=== PATIENT | female | born 1935 | race Caucasian/White ===

== ENCOUNTER → 2017-02-07 | Outpatient (CLI) | payer MEDICARE, OTHER ==
[~2017-02-07] MED LIST: AMLO5TAB2 GT; AMLO5TAB2 PO; ASPI-875 PO; CALCIUM 1000 MG PO; CEPH500C PO; CHOL200018 PO; DIPH1TAB25 PO; HCT25T PO; HYDR25TA4 PO; LOSA50TA6 PO; METR500T17 PO; OMEG1CAP51 PO; ONDA8TAB13 PO; OXYC-12 PO
== END ==
LOC: LAB 15:46
DX: R19.7 Diarrhea, unspecified (principal)
CPT/HCPCS: 87324; 87328; 87329; 87449

== ENCOUNTER → 2017-06-29 | Outpatient (CLI) | payer MEDICARE, OTHER | LOC: CARD 13:32 | PROVIDERS: ATTEND Nurse Practitioner Family | DX: I10 Essential (primary) hypertension (principal) | CPT/HCPCS: 93306 ==

== ENCOUNTER 2017-08-12 14:55 | Outpatient (RCR) | payer MEDICARE, OTHER ==
[2017-08-13 08:08] LABS: ALANINE AMINOTRANSFERASE 15 U/L (0-55); ALBUMIN 4.1 GM/DL (3.2-4.5); ALKALINE PHOSPHATASE 62 U/L (40-136); BILIRUBIN,TOTAL 1.2 MG/DL (0.1-1.0); BUN/CREATININE RATIO 15; CALCIUM 9.6 MG/DL (8.5-10.1); CARBON DIOXIDE 30 MMOL/L (21-32); CHLORIDE 98 MMOL/L (98-107); CHOLESTEROL 187 MG/DL (< 200); CREATININE SERUM 0.88 MG/DL (0.60-1.30); GFR ESTIMATED > 60; GLUCOSE 108 MG/DL (70-105); HDL CHOLESTEROL 69 MG/DL (40-60); POTASSIUM 3.4 MMOL/L (3.6-5.0); SODIUM 138 MMOL/L (135-145); TRIGLYCERIDES 46 MG/DL (<150); VLDL CHOLESTEROL 9 MG/DL (5-40)
== END 2017-11-10 | disposition home or self-care (01) ==
LOC: LAB 14:55
PROVIDERS: ATTEND Physician Assistant
DX: I65.23 Occlusion and stenosis of bilateral carotid arteries (principal); I35.0 Nonrheumatic aortic (valve) stenosis; I11.0 Hypertensive heart disease with heart failure; I50.30 Unspecified diastolic (congestive) heart failure
CPT/HCPCS: 36415; 80053; 80061

== ENCOUNTER 2017-11-19 12:06 | Inpatient (IN) | payer MEDICARE, OTHER ==
[~2017-11-19] VITALS: Ht 157.5 cm; Wt 68.0 kg
--- OUTSIDE RECORDS SUMMARY | 2017-11-19 12:12 | XMS REPORT | Clinical Summary ---
Author Author [facility] Organization [facility] Address Unknown Phone Unavailable Care Team Providers Care Artist Mannequin Coloring Name Role Phone PCP Unavailable Source Comments Some departments are not documenting in the electronic medical record. If you do not see the information that you expected, contact Release of Information in the Health Information Management department at [phone] for further assistance in locating additional records.[facility] Allergies No Known Allergies Current Medications Prescription Sig. Disp. Refills Start End Date Status Date vitamins, multiple cap Take 1 Cap by mouth Active daily. Fish Oil-[place]-3 Fatty Take 1 Cap by mouth Active Acids (FISH OIL) daily. 360-1,200 mg cap aspirin EC 81 mg tablet Take 81 mg by mouth Active daily. hydrochlorothiazide Take 12.5 mg by mouth Active (HYDRODIURIL) 25 mg daily. tablet amLODIPine (NORVASC) 5 mg Take 5 mg by mouth twice Active tablet daily. LACTOBACILLUS COMBO NO.6 Take 3 Caps by mouth Active (PROBIOTIC COMPLEX PO) daily. losartan (COZAAR) 50 mg Take 50 mg by mouth at Active tablet bedtime daily. Cholecalciferol (Vitamin Take 1 Cap by mouth Active D3) (VITAMIN D-3) 2,000 daily. unit cap ondansetron (ZOFRAN) 4 mg Take 4 mg by mouth every Active tablet 8 hours as needed. metoclopramide HCl Take 5 mg by mouth twice Active (REGLAN) 5 mg tablet daily before meals. Cyanocobalamin (VITAMIN Place 1 Tab under tongue Active B-12) 2,500 mcg subl daily. potassium chloride SR Take 10 mEq by mouth Active (K-DUR) 10 mEq tablet daily. CALCIUM PO Take 1 Tab by mouth Active daily. Takes liquid calcium 1000mg with magnesium 400 mg VIT A/VIT C/VIT Take 1 Tab by mouth Active E/ZINC/COPPER daily. (PRESERVISION AREDS PO) Active Problems Problem Noted Date Renal cyst 01/03/2014 Urinary tract bacterial infections 01/03/2014 Nocturia 01/03/2014 Family History Medical History Relation Name Comments Arthritis Father GI Problem Father Hearing Loss Father Heart Attack Father Hyperlipidemia Father Hypertension Father Depression Mother Diabetes Mother Hypertension Mother Parkinson's Mother Cataract Sister Depression Sister Emphysema Sister Hypertension Sister Alcohol abuse Son Depression Son Hyperlipidemia Son Relation Name Status Comments Daughter Alive Father Mother Sister Son Alive Social History Tobacco Use Types Packs/Day Years Used Date Former Smoker Quit: 01/02/2000 Alcohol Use Drinks/Week oz/Week Comments No Sex Assigned at Date Recorded Not on file Last Filed Vital Signs Vital Sign Reading Time Taken Blood Pressure 134/63 01/25/2014 11:45 AM CDT Pulse 79 01/25/2014 11:15 AM CDT Temperature 36.7 C (98.1 F) 01/25/2014 8:25 AM CDT Respiratory Rate 20 01/03/2014 1:21 PM [employer] Oxygen Saturation 95% 01/25/2014 11:15 AM CDT Inhaled Oxygen - - Concentration Weight 64 kg (141 lb) 01/03/2014 1:21 PM [employer] Height 160 cm (5' 3") 01/03/2014 1:21 PM [employer]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
--- OUTSIDE RECORDS SUMMARY | 2017-11-19 12:12 | XMS REPORT | Continuity of Care Document ---
Author Author [facility] Organization [facility] Address Unknown Phone Unavailable Allergies Active Description Code Type Severity Reaction Onset Reported/Identified Relationship to Patient Clinical Status Yes No Known Drug Allergies [id number] Drug Allergy Unknown N/A 12/31/2010 Medications There is no data. Problems Date Dx Coded Attending Type Code Diagnosis Diagnosed By 09/13/2014 BRYCE DAMICO, MOMO A Ot 719.45 11/19/2014 BRYCE DAMICO, MOMO A Ot V76.12 11/19/2014 BRYCE DAMICO, MOMO A Ot 401.9 11/19/2014 BRYCE DAMICO, MOMO A Ot V58.69 11/19/2014 BRYCE DAMICO, MOMO A Ot V58.83 11/19/2014 BRYCE DAMICO, MOMO A Ot 719.45 12/20/2014 BRYCE DAMICO, MOMO A Ot 785.2 05/24/2015 BRYCE DAMICO, MOMO A Ot V76.12 05/24/2015 BRYCE DAMICO, MOMO A Ot 401.9 05/24/2015 BRYCE DAMICO, MOMO A Ot V58.69 05/24/2015 BRYCE DAMICO, MOMO A Ot V58.83 05/24/2015 BRYCE DAMICO, MOMO A Ot 719.45 05/24/2015 BRYCE DAMICO, MOMO A Ot 785.2 06/18/2015 SHAUN TINOCO [employer] Ot 724.2 06/18/2015 SHAUN TINOCO [employer] Ot 782.0 06/18/2015 SHAUN TINOCO [employer] Ot 787.60 06/25/2015 SHAUN TINOCO [employer] Ot 724.02 06/25/2015 SHAUN TINOCO [employer] Ot 782.0 06/25/2015 SHAUN TINOCO [employer] Ot 787.60 07/11/2015 SHAUN TINOCO [employer] Ot 724.2 07/11/2015 SHAUN TINOCOP Ot 782.0 07/11/2015 SHAUN TINOCO [employer] Ot 787.60 07/23/2015 SHAUN TINOCO [employer] Ot 724.02 07/23/2015 SHAUN TINOCO [employer] Ot 782.0 07/23/2015 SHAUN TINOCO [employer] Ot 787.60 10/11/2015 TINOCOSHAUN [employer] Ot 724.02 10/11/2015 SHAUN TINOCO [employer] Ot 782.0 10/11/2015 SHAUN TINOCO [employer] Ot 787.60 11/05/2015 ALEJANDRINASHAUN [employer] Ot F17.210 11/05/2015 ALEJANDRINASHAUN [employer] Ot R05 11/12/2015 GRACE ROCHA VALVE GRINDER Ot R05 11/12/2015 GRACE ROCHA VALVE GRINDER Ot R06.02 03/04/2016 CLIVE DAMICO FACC, CAN FACP CCDS Ot G20 PARKINSON'S DISEASE 03/04/2016 CLIVE DAMICO FACC, CAN FACP CCDS Ot I10 ESSENTIAL (PRIMARY) HYPERTENSION 03/04/2016 CLIVE DAMICO FACC, ALI FACP CCDS Ot I35.0 NONRHEUMATIC AORTIC (VALVE) STENOSIS 03/04/2016 CLIVE DAMICO FACC, ALI FACP CCDS Ot R06.02 SHORTNESS OF BREATH 03/04/2016 CLIVE DAMICO FACC, CAN FACP CCDS Ot R09.89 OTH SYMPTOMS AND SIGNS INVOLVING THE CIR 03/24/2016 CLIVE DAMICO FACC, CAN FACP CCDS Ot G20 PARKINSON'S DISEASE 03/24/2016 CLIVE DAMICO FACC, ALI FACP CCDS Ot I10 ESSENTIAL (PRIMARY) HYPERTENSION 03/24/2016 CLIVE DAMICO FACC, ALI FACP CCDS Ot I35.0 NONRHEUMATIC AORTIC (VALVE) STENOSIS 03/24/2016 CLIVE DAMICO FACC, ALI FACP CCDS Ot R06.02 SHORTNESS OF BREATH 03/24/2016 CLIVE DAMICO FACC, ALI FACP CCDS Ot R09.89 OTH SYMPTOMS AND SIGNS INVOLVING THE CIR 02/11/2017 SHAUN TINOCO [employer] Ot 724.02 SPINAL STENOSIS, LUMBAR REG, W/OUT NEURO 02/11/2017 TINOCO, SHAUN M [employer] Ot 782.0 SKIN SENSATION DISTURB 02/11/2017 SHAUN TINOCO [employer] Ot 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 02/11/2017 SHAUN TINOCO [employer] Ot F17.210 NICOTINE DEPENDENCE, CIGARETTES, UNCOMPL 02/11/2017 SHAUN TINOCO [employer] Ot R05 COUGH 02/11/2017 GRACE ROCHA VALVE GRINDER Ot R05 COUGH 02/11/2017 GRACE ROCHA VALVE GRINDER Ot R06.02 SHORTNESS OF BREATH 02/11/2017 CLIVE DAMICO FAC, ALI FACP CCDS Ot G20 PARKINSON'S DISEASE 02/11/2017 CLIVE DAMICO FAC, ALI FACP CCDS Ot I10 ESSENTIAL (PRIMARY) HYPERTENSION 02/11/2017 CLIVE DAMICO [facility], ALI FACP CCDS Ot I35.0 NONRHEUMATIC AORTIC (VALVE) STENOSIS 02/11/2017 CLIVE DAMICO [facility], ALI FACP CCDS Ot R06.02 SHORTNESS OF BREATH 02/11/2017 CLIVE DAMICO [facility], ALI FACP CCDS Ot R09.89 OTH SYMPTOMS AND SIGNS INVOLVING THE CIR 02/11/2017 OTHER, UNLISTED Ot R19.7 DIARRHEA, UNSPECIFIED 02/11/2017 OTHER, UNLISTED Ot R19.7 DIARRHEA, UNSPECIFIED 03/10/2017 OTHER, UNLISTED Ot R19.7 DIARRHEA, UNSPECIFIED 06/22/2017 MOMO WU MD Ot V76.12 OTH SCREEN MAMMO-MALIGN NEOPLASM OF NATASHA 06/22/2017 MOMO WU MD Ot 401.9 HYPERTENSION NOS 06/22/2017 MOMO WU MD Ot V58.69 OTH MED,LT,CURRENT USE 06/22/2017 MOMO WU MD Ot V58.83 ENCOUNTER FOR THERAPEUTIC DRUG MONITORIN 06/22/2017 MOMO WU MD Ot 719.45 JOINT PAIN-PELVIS 06/22/2017 MOMO WU MD Ot 785.2 CARDIAC MURMURS NEC 06/22/2017 SHAUN TINOCO [employer] Ot 724.2 LUMBAGO 06/22/2017 SHAUN TINOCO [employer] Ot 782.0 SKIN SENSATION DISTURB 06/22/2017 SHAUN TINOCO [employer] Ot 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 06/22/2017 ALEJANDRINA SHAUN Raj [employer] Ot 724.02 SPINAL STENOSIS, LUMBAR REG, W/OUT NEURO 06/22/2017 ALEJANDRINA SHAUN M [employer] Ot 782.0 SKIN SENSATION DISTURB 06/22/2017 ALEJANDRINA SHAUN Anthony [employer] Ot 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 06/22/2017 ALEJANDRINA SHAUN Raj [employer] Ot F17.210 NICOTINE DEPENDENCE, CIGARETTES, UNCOMPL 06/22/2017 SHAUN TINOCO [employer] Ot R05 COUGH 06/22/2017 GRACE ROCHA VALVE GRINDER Ot R05 COUGH 06/22/2017 GRACE ROCHA VALVE GRINDER Ot R06.02 SHORTNESS OF BREATH 06/22/2017 CLIVE DAMICO FACC, ALI FACP CCDS Ot G20 PARKINSON'S DISEASE 06/22/2017 CLIVE DAMICO FACC, ALI FACP CCDS Ot I10 ESSENTIAL (PRIMARY) HYPERTENSION 06/22/2017 CLIVE DAMICO FACC, ALI FACP CCDS Ot I35.0 NONRHEUMATIC AORTIC (VALVE) STENOSIS 06/22/2017 CLIVE DAMICO FACC, ALI FACP CCDS Ot R06.02 SHORTNESS OF BREATH 06/22/2017 CLIVE DAMICO FACC, ALI FACP CCDS Ot R09.89 OTH SYMPTOMS AND SIGNS INVOLVING THE CIR 06/22/2017 OTHER, UNLISTED Ot R19.7 DIARRHEA, UNSPECIFIED 07/23/2017 ALEJANDRINA SHAUN M [employer] Ot I10 ESSENTIAL (PRIMARY) HYPERTENSION 08/12/2017 CJ BENTON Ot 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 08/13/2017 CJ BENTON Ot 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 09/24/2017 CJ BENTON Ot I11.0 HYPERTENSIVE HEART DISEASE WITH HEART FA 09/24/2017 CJ BENTON Ot I35.0 NONRHEUMATIC AORTIC (VALVE) STENOSIS 09/24/2017 CJ BENTON Ot I50.30 UNSPECIFIED DIASTOLIC (CONGESTIVE) HEART 09/24/2017 CJ BENTON Ot 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 Results Test Result Range [id number] - 02/07/17 15:00 RESULTS NEGATIVE FOR ANTIGEN AND TOXIN A/B NRG [id number] - 02/07/17 15:00 [id number] FOOTNOTE NRG Encounters ACCT No. Visit Date/Time Discharge Status Pt. Type Provider Facility Loc./Unit Complaint [id number] 11/11/2017 00:28:00 11/11/2017 23:59:59 CLS Preadmit CJ BENTON [facility] LAB I35.0 I65.23 I50.30 I10 [id number] 08/12/2017 14:55:00 11/10/2017 00:01:00 DIS Outpatient CJ BENTON [facility] LAB I35.0 I65.23 I50.30 I10 [id number] 06/29/2017 13:32:00 06/29/2017 23:59:59 CLS Outpatient SHAUN TINOCO [facility] CARD HTN [id number] 02/07/2017 15:46:00 02/07/2017 23:59:59 CLS Outpatient OTHER, UNLISTED [facility] LAB DIARRHEA UNSPECIFED TYPE [id number] 03/03/2016 08:40:00 03/03/2016 23:59:59 CLS Outpatient CLIVE DAMICO FACCAN Clarke FACP CCDS [facility] CARD SOA,AORTIA STENOSIS [id number] 10/23/2015 15:10:00 10/23/2015 23:59:59 CLS Outpatient GRACE ROCHA APRN [facility] RT SHORTNESS OF BREATH, COUGH [id number] 10/11/2015 12:42:00 10/11/2015 23:59:59 CLS Outpatient SHAUN TINOCO [employer] [facility] RAD COUGH,HX TOBACCO USE [id number] 05/28/2015 10:47:00 05/28/2015 23:59:59 CLS Outpatient ALEJANDRINA SHAUN Raj [employer] [facility] RAD LBP,NUMBESS IN LEGS AND FECAL INCONTINTICE [id number] 05/24/2015 12:16:00 05/24/2015 23:59:59 CLS Outpatient SHAUN TINOCO [employer] [facility] RAD LBP,NUMBESS IN LEGS AND PAIN [id number] 11/19/2014 10:49:00 11/19/2014 23:59:59 CLS Outpatient MOMO WU MD [facility] CARD HEART MUMUR [id number] 08/22/2014 12:36:00 08/22/2014 23:59:59 CLS Outpatient MOMO WU MD [facility] RAD R HIP PAIN [id number] 12/20/2013 08:54:00 03/19/2014 00:01:00 DIS Outpatient [id number] 02/22/2014 09:00:00 02/22/2014 23:59:59 CLS Outpatient MOMO WU MD [facility] RAD SCREENING [id number] 02/21/2014 11:03:00 02/21/2014 23:59:59 CLS Outpatient MOMO WU MD [facility] LAB HTN,SNF MED USE [id number] 10/20/2013 07:30:00 01/16/2014 00:01:00 DIS Outpatient [id number] 12/17/2013 15:59:00 12/17/2013 20:13:00 DIS Emergency [id number] 10/31/2013 11:12:00 11/08/2013 11:07:00 DIS Inpatient [id number] 06/19/2013 08:54:00 06/19/2013 11:40:00 DIS Outpatient [id number] 06/14/2013 07:24:00 06/14/2013 23:59:59 CLS Outpatient [id number] 03/07/2013 17:46:00 03/07/2013 23:59:59 CLS Outpatient [id number] 02/27/2013 12:19:00 02/27/2013 23:59:59 CLS Outpatient
--- NOTE | 2017-11-19 12:21 | ED Fall/Injury ---
General Stated Complaint: FALL Source: patient, family (son), EMS Exam Limitations: no limitations History of Present Illness Date Seen by Provider: Nov 19, 2017 Time Seen by Provider: 12:10 Initial Comments Patient presents to ER by EMS with chief complaint of just prior to arrival she was walking down 3 or 4 steps outside of her friend's house and grabbed on the banister but the railing piece she grabbed came loose and she tumbled down the steps. She denies loss of consciousness or striking her head. She's not having any pain in her head neck shoulders or upper extremities. She is concerned mostly because she has a history of multiple lumbar spinal fusions and she feels not so much pain in her left lower extremity but numbness and feels like she can't move it. She was more comfortable laying on her right side according to EMS. She denied an IV or pain medicine per EMS. She has no history of hip fracture. She has also had a gallbladder and carotid endarterectomy surgery in the past. She is not on blood thinners. She claims she feels very dry and wants something to drink. She drank 2 large glasses of water before leaving her friend 's house that she is also dehydrated. She denies urinary frequency, dysuria, discharge. She has no nausea, vomiting, chest pain, shortness of breath. She denies diabetes or diuretics use. Allergies and Home Medications Allergies Coded Allergies: No Known Drug Allergies (Unverified , 12/31/10) Home Medications Amlodipine Besylate 5 Mg Tablet, 5 MG PO DAILY, (Reported) Aspirin 81 Mg Tablet.dr, 81 MG PO DAILY, (Reported) Cholecalciferol (Vitamin D3) 2,000 Unit Capsule, 2,000 UNIT PO 1200, (Reported) Elderberry Fruit and Flower 1 Each Capsule, 1 CAP PO BID, (Reported) Hydrochlorothiazide 25 Mg Tablet, 25 MG PO DAILY, (Reported) L.acidoph & Paracasei,B.lactis 1 Each Capsule, 1 CAP PO BID, (Reported) Lutein 20 Mg Tablet, 20 MG PO BID, (Reported) Metoprolol Succinate 25 Mg Tab.er.24h, 25 MG PO DAILY, (Reported) Multivitamin 1 Each Tablet, 0.5 TAB PO BID, (Reported) Huguenot 3 Polyunsat Fatty Acids 1,000 Mg Cap, 1,000 MG PO TID, (Reported) [Proactazyme] , 1 CAP PO TID, (Reported) [Slippery Elm] , 1 CAP PO TID, (Reported) Constitutional: No chills, No diaphoresis Eyes: Denies Blindness, Denies Drainage Ears, Nose, Mouth, Throat: denies ear pain, denies ear discharge Respiratory: No cough, No dyspnea on exertion Cardiovascular: No chest pain, No edema, No syncope Gastrointestinal: No abdominal pain, No constipation, No diarrhea, No nausea, No vomiting Genitourinary: No discharge, No dysuria Skin: No pruritus, No rash Past Duuobfo-Huszsg-Whewle Hx Patient Social History Smoking Status: Never a Smoker 2nd Hand Smoke Exposure: No Immunizations Up To Date Date of Pneumonia Vaccine: Oct 01, 2003 Date of Influenza Vaccine: Jul 04, 2013 Reproductive System Hx Reproductive Disorders: No Musculoskeletal Musculoskeletal Disorders: Arthritis Blood Transfusions Adverse Reaction to a Blood Tr: No Family Medical History Significant Family History: Heart Disease, Diabetes, Hypertension, Psychiatric Problems Family Medial History: Cataract 09 SISTER Chest pain 03 FATHER Family history: Arthritis 03 FATHER Family history: Cardiovascular disease 03 FATHER Family history: Diabetes mellitus 03 MOTHER Family history: Gastrointestinal disease 03 FATHER Family history: Hypertension 03 MOTHER Hearing loss 03 FATHER Heart disease 03 FATHER Myocardial infarction 03 FATHER Parkinson's disease 03 MOTHER Psychotic disorder 09 SISTER No Family History of: Abdominal aortic aneurysm Crittenden's disease Alcoholism Aphasia Cancer Cancer of colon Congenital heart disease Congestive heart failure Cystic fibrosis Dementia Dysphagia Family history: Allergy Family history: Alzheimer's disease Family history: Asthma Family history: Breast disease Family history: Coronary thrombosis Family history: Glaucoma Family history: Osteoporosis Family history: Thyroid disorder Headache Hereditary disease History of - anemia History of - disorder History of - respiratory disease History of drug abuse Human immunodeficiency virus (HIV) seropositivity Hypercholesterolemia Infertile Kidney disease Malignant neoplasm of lung Prostate cancer Seizure disorder Stroke Tuberculosis Visual impairment Physical Exam Vital Signs Vital Sign - Last 12Hours 11/19/17 12:06 Temp 98.0 Pulse 94 Resp 18 B/P (MAP) 165/77 (106) Pulse Ox 94 O2 Delivery Room Air Capillary Refill : General Appearance: WD/WN, mild distress HEENT: PERRL/EOMI, TMs normal, pharynx normal, other (negative for raccoon eyes or [place] sign) Neck: non-tender, full range of motion, supple, normal inspection Cardiovascular: normal peripheral pulses, regular rate, rhythm, no edema Respiratory: chest non-tender, lungs clear, normal breath sounds, no respiratory distress, no accessory muscle use Peripheral Pulses: 2+ Dorsalis Pedis (R), 2+ Left Dors-Pedis (L), 2+ Radial Pulses (R), 2+ Radial Pulses (L) Gastrointestinal: normal bowel sounds, non tender, soft Extremities: non-tender, normal capillary refill, other (left leg is numb, outwardly rotated and mildly shortened. Painful to motion) Neurologic/Psychiatric: alert, normal mood/affect, oriented x 3 Skin: normal color, warm/dry Progress/Results/Core Measures Results/Orders Lab Results Laboratory Tests Test 11/19/17 12:31 Range/Units White Blood Count 15.7 H 4.3-11.0 10^3/uL Red Blood Count 5.14 4.35-5.85 10^6/uL Hemoglobin 13.8 11.5-16.0 G/DL Hematocrit 41 35-52 % Mean Corpuscular Volume 79 L 80-99 FL Mean Corpuscular Hemoglobin 27 25-34 PG Mean Corpuscular Hemoglobin Concent 34 32-36 G/DL Red Cell Distribution Width 15.2 H 10.0-14.5 % Platelet Count 239 130-400 10^3/uL Mean Platelet Volume 9.3 7.4-10.4 FL Neutrophils (%) (Auto) 79 H 42-75 % Lymphocytes (%) (Auto) 13 12-44 % Monocytes (%) (Auto) 6 0-12 % Eosinophils (%) (Auto) 2 0-10 % Basophils (%) (Auto) 0 0-10 % Neutrophils # (Auto) 12.4 H 1.8-7.8 X 10^3 Lymphocytes # (Auto) 2.0 1.0-4.0 X 10^3 Monocytes # (Auto) 0.9 0.0-1.0 X 10^3 Eosinophils # (Auto) 0.4 H 0.0-0.3 10^3/uL Basophils # (Auto) 0.1 0.0-0.1 10^3/uL Neutrophils % (Manual) 81 % Lymphocytes % (Manual) 13 % Monocytes % (Manual) 3 % Eosinophils % (Manual) 3 % Toxic Granulation 1+ Blood Morphology Comment NORMAL Sodium Level 136 135-145 MMOL/L Potassium Level 3.1 L 3.6-5.0 MMOL/L Chloride Level 93 L 98-107 MMOL/L Carbon Dioxide Level 29 21-32 MMOL/L Anion Gap 14 5-14 MMOL/L Blood Urea Nitrogen 15 7-18 MG/DL Creatinine 0.83 0.60-1.30 MG/DL Estimat Glomerular Filtration Rate > 60 BUN/Creatinine Ratio 18 Glucose Level 95 70-105 MG/DL Calcium Level 9.7 8.5-10.1 MG/DL Magnesium Level 1.7 L 1.8-2.4 MG/DL Total Bilirubin 0.9 0.1-1.0 MG/DL Aspartate Amino Transf (AST/SGOT) 20 5-34 U/L Alanine Aminotransferase (ALT/SGPT) 18 0-55 U/L Alkaline Phosphatase 64 40-136 U/L Total Protein 7.2 6.4-8.2 GM/DL Albumin 4.2 3.2-4.5 GM/DL My Orders Orders - ALESIA ARIAS Cbc With Automated Diff (11/19/17 12:15) Comprehensive Metabolic Panel (11/19/17 12:15) Magnesium (11/19/17 12:15) Ua Culture If Indicated (11/19/17 12:15) Lumbar Spine - 2-3 Views (11/19/17 12:15) Pelvis With Left Hip 2-3 Views (11/19/17 12:15) Manual Differential (11/19/17 12:31) Chest 1 View, Ap/Pa Only (11/19/17 13:06) Fentanyl Injection (Sublimaze Injection (11/19/17 14:00) Medications Given in ED Current Medications Medications Dose Ordered Sig/Emiliana Route Start Time Stop Time Status Last Admin Dose Admin Fentanyl Citrate 50 mcg ONCE ONCE IVP 11/19/17 14:00 11/19/17 14:01 DC 11/19/17 14:07 50 MCG Vital Signs/I&O Vital Sign - Last 12Hours 11/19/17 12:06 Temp 98.0 Pulse 94 Resp 18 B/P (MAP) 165/77 (106) Pulse Ox 94 O2 Delivery Room Air Progress Note : Time: 13:50 Progress Note Patient has declined a CT scan of her head and neck as she says she has no symptoms there. His been explained to her that her symptoms in her leg could be related to a neck lesion and she still does not want to have the scans done. Also been explained to her the possibility of a slow occult bleed in her head and the patient still adamant that she is not interested in the scans and just wants the x-rays of her hip. Diagnostic Imaging Diagonstic Imaging: Xray Plain Films/CT/US/NM/MRI: other (lumbar spine) [facility] [place], [place] NAME: EVA GANNON MED REC#: [id number] PT STATUS: REG ER : 1935 PHYSICIAN: ALESIA ARIAS MD ADMIT DATE: 11/19/17/ER Draft Date of Exam:11/19/17 LUMBAR SPINE - 2-3 VIEWS INDICATION: Fall and back pain. TIME OF EXAM: 1:16 p.m. Curvature of the lumbar spine is normal. There is minimal anterolisthesis of L4 on L5. There are postop changes of posterior instrumented fusion with vertical stabilization rods and pedicle screws extending from L3 through L5. There is generalized demineralization. The vertebral body heights are maintained. No acute compression fracture is detected. Orthopedic hardware appears intact without fracture or loosening. Decompression laminectomy changes from L3 to L5 are also noted. Aorta is heavily calcified. IMPRESSION: Chronic and postsurgical changes. No acute abnormality is detected. Dictated on workstation # [id number] Dict: 11/19/17 1329 Trans: 11/19/17 1336 [facility] [id number] Interpreted by: JASON HARTMAN MD Electronically signed by: Reviewed: Reviewed by Nc Diagonstic Imaging: Xray Plain Films/CT/US/NM/MRI: chest Comments [facility]. [place], [place] NAME: EVA GANNON [facility] REC#: [id number] PT STATUS: REG ER : 1935 PHYSICIAN: ALESIA ARIAS MD ADMIT DATE: 11/19/17/ER Draft Date of Exam:11/19/17 CHEST 1 VIEW, AP/PA ONLY INDICATION: Fall down stairs. FINDINGS: No lung contusion, pneumothorax, or hemothorax. No displaced chest wall fracture deformity. No aspiration or other cause of pneumonia. IMPRESSION: No acute post traumatic sequela is radiographically apparent. Dictated on workstation # [id number] Dict: 11/19/17 1324 Trans: 11/19/17 1326 [id number] Interpreted by: MAGALYS GARZA Electronically signed by: Reviewed: Reviewed by Me Diagonstic Imaging: Xray Plain Films/CT/US/NM/MRI: hip (left) Comments VIA [facility]. [place], [place] NAME: EVA GANNON [facility] REC#: [id number] PT STATUS: REG ER : 1935 PHYSICIAN: ALESIA ARIAS MD ADMIT DATE: 11/19/17/ER Draft Date of Exam:11/19/17 PELVIS WITH LEFT HIP 2-3 VIEWS INDICATION: Fall. TIME OF EXAMINATION: 01:17 p.m. FINDINGS: A single AP view of the pelvis and two views of the left hip demonstrate a comminuted intertrochanteric fracture of the left hip. There is mild coxa varus deformity. Femoral acetabular alignment is normal. The right hip is intact. Rami appear intact. Postop changes of posterior instrumented effusion in the lower lumbar spine are noted. IMPRESSION: Comminuted intertrochanteric left hip fracture. Dictated on workstation # [id number] Dict: 11/19/17 1330 Trans: 11/19/17 1334 [facility] [id number] Interpreted by: JASON HARTMAN MD Electronically signed by: Reviewed: Reviewed by Me Consults Consults : Consulting Physician: DEAN KESSLER DO Consults Notes Discussed case lab imaging and findings. We discussed the patient and he will admit and possibly consult medicine. Departure Communication (Admissions) Time/Spoke to Admitting Phy: 13:[address] Kessler is okay to admit the patient but he may use Dr. Carreon for a medical consult as needed. Impression Impression: Primary Impression: Closed left hip fracture Qualified Codes: S72.002A - Fracture of unspecified part of neck of left femur , initial encounter for closed fracture Additional Impression: Fall Qualified Codes: W19.XXXA - Unspecified fall, initial encounter Disposition: ADMITTED INPATIENT Condition: Stable Admissions Decision to Admit Reason: Admit from ER (General) Decision to Admit/Date: Nov 19, 2017 Time/Decision to Admit Time: 14:02 Departure-Patient Inst. Referrals: MOMO WU MD (PCP/Family) Primary Care Physician Copy Copies To 1: MOMO WU MD, TITUS J Nov 19, 2017 12:21
[2017-11-19 12:42] LABS: BASOPHILS # (AUTO) 0.1 10^3/uL (0.0-0.1); BASOPHILS % (AUTO) 0 % (0-10); EOSINOPHILS # (AUTO) 0.4 10^3/uL (0.0-0.3); EOSINOPHILS % (AUTO) 2 % (0-10); HEMATOCRIT 41 % (35-52); HEMOGLOBIN 13.8 G/DL (11.5-16.0); LYMPHOCYTES % (AUTO) 13 % (12-44); MEAN CORPUSCULAR HEMOGLOBIN 27 PG (25-34); MEAN CORPUSCULAR HGB CONC 34 G/DL (32-36); MEAN CORPUSCULAR VOLUME 79 FL (80-99); MEAN PLATELET VOLUME 9.3 FL (7.4-10.4); MONOCYTES # (AUTO) 0.9 X 10^3 (0.0-1.0); MONOCYTES % (AUTO) 6 % (0-12); NEUTROPHILS # (AUTO) 12.4 X 10^3 (1.8-7.8); NEUTROPHILS % (AUTO) 79 % (42-75); PLATELET COUNT 239 10^3/uL (130-400); RED BLOOD COUNT 5.14 10^6/uL (4.35-5.85); RED CELL DISTRIBUTION WIDTH 15.2 % (10.0-14.5); WHITE BLOOD COUNT 15.7 10^3/uL (4.3-11.0)
[2017-11-19 13:00] LABS: ALANINE AMINOTRANSFERASE 18 U/L (0-55); ALBUMIN 4.2 GM/DL (3.2-4.5); ALKALINE PHOSPHATASE 64 U/L (40-136); BILIRUBIN,TOTAL 0.9 MG/DL (0.1-1.0); BUN/CREATININE RATIO 18; CALCIUM 9.7 MG/DL (8.5-10.1); CARBON DIOXIDE 29 MMOL/L (21-32); CHLORIDE 93 MMOL/L (98-107); CREATININE SERUM 0.83 MG/DL (0.60-1.30); GFR ESTIMATED > 60; GLUCOSE 95 MG/DL (70-105); MAGNESIUM 1.7 MG/DL (1.8-2.4); POTASSIUM 3.1 MMOL/L (3.6-5.0); SODIUM 136 MMOL/L (135-145); TOTAL PROTEIN 7.2 GM/DL (6.4-8.2)
[2017-11-19 13:21] LABS: NEUTROPHILS % (MANUAL) 81 %
[2017-11-19 13:22] LABS: EOSINOPHILS % (MANUAL) 3 %; LYMPHOCYTES % (MANUAL) 13 %; MONOCYTES % (MANUAL) 3 %; RBC MORPH NORMAL; TOXIC GRANULATION/VACUOLAZATIO 1+
--- NOTE | 2017-11-19 13:26 | Diagnostic Imaging Report ---
INDICATION: Fall down stairs. FINDINGS: No lung contusion, pneumothorax, or hemothorax. No displaced chest wall fracture deformity. No aspiration or other cause of pneumonia. IMPRESSION: No acute post traumatic sequela is radiographically apparent. Dictated by: Dictated on workstation # [id number]
--- NOTE | 2017-11-19 13:34 | Diagnostic Imaging Report ---
INDICATION: Fall. TIME OF EXAMINATION: 01:17 p.m. FINDINGS: A single AP view of the pelvis and two views of the left hip demonstrate a comminuted intertrochanteric fracture of the left hip. There is mild coxa varus deformity. Femoral acetabular alignment is normal. The right hip is intact. Rami appear intact. Postop changes of posterior instrumented effusion in the lower lumbar spine are noted. IMPRESSION: Comminuted intertrochanteric left hip fracture. Dictated by: Dictated on workstation # [id number]
--- NOTE | 2017-11-19 13:36 | Diagnostic Imaging Report ---
INDICATION: Fall and back pain. TIME OF EXAM: 1:16 p.m. Curvature of the lumbar spine is normal. There is minimal anterolisthesis of L4 on L5. There are postop changes of posterior instrumented fusion with vertical stabilization rods and pedicle screws extending from L3 through L5. There is generalized demineralization. The vertebral body heights are maintained. No acute compression fracture is detected. Orthopedic hardware appears intact without fracture or loosening. Decompression laminectomy changes from L3 to L5 are also noted. Aorta is heavily calcified. IMPRESSION: Chronic and postsurgical changes. No acute abnormality is detected. Dictated by: Dictated on workstation # [id number]
[2017-11-19] MEDS ORDERED: fentaNYL INJECTION 100 MCG/2 ML AMP IVP ONE (14:00)
--- OUTSIDE RECORDS SUMMARY | 2017-11-19 14:42 | XMS REPORT | Continuity of Care Document ---
Author Author [facility] Organization [facility] Address Unknown Phone Unavailable Allergies Active Description Code Type Severity Reaction Onset Reported/Identified Relationship to Patient Clinical Status Yes No Known Drug Allergies [id number] Drug Allergy Unknown N/A 12/31/2010 Medications There [...] MOMO A Ot 785.2 06/18/2015 SHAUN TINOCO SUPPLIER MANAGER Ot 724.2 06/18/2015 SHAUN TINOCO SUPPLIER MANAGER Ot 782.0 06/18/2015 SHAUN TINOCO SUPPLIER MANAGER Ot 787.60 06/25/2015 SHAUN TINOCO SUPPLIER MANAGER Ot 724.02 06/25/2015 SHAUN TINOCO SUPPLIER MANAGER Ot 782.0 06/25/2015 SHAUN TINOCO SUPPLIER MANAGER Ot 787.60 07/11/2015 SHAUN TINOCO SUPPLIER MANAGER Ot 724.2 07/11/2015 SHAUN TINOCOP Ot 782.0 07/11/2015 SHAUN TINOOC SUPPLIER MANAGER Ot 787.60 07/23/2015 SHAUN TINOCO SUPPLIER MANAGER Ot 724.02 07/23/2015 SHAUN TINOCO SUPPLIER MANAGER Ot 782.0 07/23/2015 SHAUN TINOCO SUPPLIER MANAGER Ot 787.60 10/11/2015 TINOCOSHAUN SUPPLIER MANAGER Ot 724.02 10/11/2015 SHAUN TINOCO SUPPLIER MANAGER Ot 782.0 10/11/2015 SHAUN TINOCO SUPPLIER MANAGER Ot 787.60 11/05/2015 ALEJANDRINASHAUN SUPPLIER MANAGER Ot F17.210 11/05/2015 ALEJANDRINASHAUN SUPPLIER MANAGER Ot R05 11/12/2015 GRACE ROCHA FACILITIES PAINTER Ot R05 11/12/2015 GRACE ROCHA FACILITIES PAINTER Ot R06.02 03/04/2016 CLIVE DAMICO FACC, CAN [...] SIGNS INVOLVING THE CIR 02/11/2017 SHAUN TINOCO SUPPLIER MANAGER Ot 724.02 SPINAL STENOSIS, LUMBAR REG, W/OUT NEURO 02/11/2017 TINOCO, SHAUN M SUPPLIER MANAGER Ot 782.0 SKIN SENSATION DISTURB 02/11/2017 SHAUN TINOCO SUPPLIER MANAGER Ot 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 02/11/2017 SHAUN TINOCO SUPPLIER MANAGER Ot F17.210 NICOTINE DEPENDENCE, CIGARETTES, UNCOMPL 02/11/2017 SHAUN TINOCO SUPPLIER MANAGER Ot R05 COUGH 02/11/2017 GRACE ROCHA FACILITIES PAINTER Ot R05 COUGH 02/11/2017 GRACE ROCHA FACILITIES PAINTER Ot R06.02 SHORTNESS OF BREATH 02/11/2017 CLIVE DAMICO FAC, ALI FACP CCDS Ot G20 PARKINSON'S DISEASE 02/11/2017 CLIVE DAMICO FAC, ALI FACP CCDS Ot I10 ESSENTIAL (PRIMARY) HYPERTENSION 02/11/2017 CLIVE DAMICO [facility], ALI FACP CCDS Ot I35.0 NONRHEUMATIC AORTIC (VALVE) STENOSIS 02/11/2017 CLIVE DAMICO [facility], ALI FACP CCDS Ot R06.02 SHORTNESS OF BREATH 02/11/2017 CLIVE DAMICO [facility], ALI FACP CCDS Ot R09.89 OTH SYMPTOMS [...] 785.2 CARDIAC MURMURS NEC 06/22/2017 SHAUN TINOCO SUPPLIER MANAGER Ot 724.2 LUMBAGO 06/22/2017 SHAUN TINOCO SUPPLIER MANAGER Ot 782.0 SKIN SENSATION DISTURB 06/22/2017 SHAUN TINOCO SUPPLIER MANAGER Ot 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 06/22/2017 ALEJANDRINA SHAUN Raj SUPPLIER MANAGER Ot 724.02 SPINAL STENOSIS, LUMBAR REG, W/OUT NEURO 06/22/2017 ALEJANDRINA SHAUN M SUPPLIER MANAGER Ot 782.0 SKIN SENSATION DISTURB 06/22/2017 ALEJANDRINA SHAUN Anthony SUPPLIER MANAGER Ot 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 Results Test Result Range [id number] - 02/07/17 15:00 RESULTS NEGATIVE FOR ANTIGEN AND TOXIN A/B NRG [id number] - 02/07/17 15:00 [id number] FOOTNOTE NRG Complete blood count (CBC) with automated white blood cell (WBC) differential - 11/19/17 12:31 Blood leukocytes automated count (number/volume) 15.7 10*3/uL 4.3-11.0 Blood erythrocytes automated count (number/volume) 5.14 10*6/uL 4.35-5.85 Venous blood hemoglobin measurement (mass/volume) 13.8 g/dL 11.5-16.0 Blood hematocrit (volume fraction) 41 % 35-52 Automated erythrocyte mean corpuscular volume 79 [foz_us] 80-99 Automated erythrocyte mean corpuscular hemoglobin (mass per erythrocyte) 27 pg 25-34 Automated erythrocyte mean corpuscular hemoglobin concentration measurement ( mass/volume) 34 g/dL 32-36 Automated erythrocyte distribution width ratio 15.2 % 10.0-14.5 Automated blood platelet count (count/volume) 239 10*3/uL 130-400 Automated blood platelet mean volume measurement 9.3 [foz_us] 7.4-10.4 Automated blood neutrophils/100 leukocytes 79 % 42-75 Automated blood lymphocytes/100 leukocytes 13 % 12-44 Blood monocytes/100 leukocytes 6 % 0-12 Automated blood eosinophils/100 leukocytes 2 % 0-10 Automated blood basophils/100 leukocytes 0 % 0-10 Blood neutrophils automated count (number/volume) 12.4 10*3 1.8-7.8 Blood lymphocytes automated count (number/volume) 2.0 10*3 1.0-4.0 Blood monocytes automated count (number/volume) 0.9 10*3 0.0-1.0 Automated eosinophil count 0.4 10*3/uL 0.0-0.3 Automated blood basophil count (count/volume) 0.1 10*3/uL 0.0-0.1 Comprehensive metabolic panel - 11/19/17 12:31 Serum or plasma sodium measurement (moles/volume) 136 mmol/L 135-145 Serum or plasma potassium measurement (moles/volume) 3.1 mmol/L 3.6-5.0 Serum or plasma chloride measurement (moles/volume) 93 mmol/L 98-107 Carbon dioxide 29 mmol/L 21-32 Serum or plasma anion gap determination (moles/volume) 14 mmol/L 5-14 Serum or plasma urea nitrogen measurement (mass/volume) 15 mg/dL 7-18 Serum or plasma creatinine measurement (mass/volume) 0.83 mg/dL 0.60-1.30 Serum or plasma urea nitrogen/creatinine mass ratio 18 NRG Serum or plasma creatinine measurement with calculation of estimated glomerular filtration rate > NRG Serum or plasma glucose measurement (mass/volume) 95 mg/dL 70-105 Serum or plasma calcium measurement (mass/volume) 9.7 mg/dL 8.5-10.1 Serum or plasma total bilirubin measurement (mass/volume) 0.9 mg/dL 0.1-1.0 Serum or plasma alkaline phosphatase measurement (enzymatic activity/volume) 64 U/L 40-136 Serum or plasma aspartate aminotransferase measurement (enzymatic activity/ volume) 20 U/L 5-34 Serum or plasma alanine aminotransferase measurement (enzymatic activity/volume ) 18 U/L 0-55 Serum or plasma protein measurement (mass/volume) 7.2 g/dL 6.4-8.2 Serum or plasma albumin measurement (mass/volume) 4.2 g/dL 3.2-4.5 Magnesium - 11/19/17 12:31 Magnesium 1.7 mg/dL 1.8-2.4 Blood manual differential performed detection - 11/19/17 12:31 Blood monocytes/100 leukocytes 3 % NRG Manual blood segmented neutrophils/100 leukocytes 81 % NRG Manual blood lymphocytes/100 leukocytes 13 % NRG Manual eosinophils/100 leukocytes in nose 3 % NRG Blood erythrocyte morphology finding identification NORMAL NRG Blood toxic granules detection by light microscopy 1+ NRG Encounters ACCT No. Visit Date/Time Discharge Status Pt. Type Provider Facility Loc./Unit Complaint [id number] 11/11/2017 00:28:00 11/11/2017 23:59:59 CLS Preadmit ALFONZO BEAL CJ K [facility] LAB I35.0 I65.23 I50.30 I10 [id number] 08/12/2017 14:55:00 11/10/2017 00:01:00 DIS Outpatient CJ BENTON [facility] LAB I35.0 I65.23 I50.30 I10 [id number] 06/29/2017 13:32:00 06/29/2017 23:59:59 CLS Outpatient SHAUN TINOCOP [facility] CARD HTN [id number] 02/07/2017 15:46:00 02/07/2017 23:59:59 CLS Outpatient OTHER, UNLISTED [facility] LAB DIARRHEA UNSPECIFED TYPE [id number] 03/03/2016 08:40:00 03/03/2016 23:59:59 CLS Outpatient CLIVE DAMICO FACC, CAN MUELLER CCDS [facility] CARD SOA,AORTIA STENOSIS [id number] 10/23/2015 15:10:00 10/23/2015 23:59:59 CLS Outpatient GRACE ROCHA APRN [facility] RT SHORTNESS OF BREATH, COUGH [id number] 10/11/2015 12:42:00 10/11/2015 23:59:59 CLS Outpatient SHAUN TNIOCOP [facility] RAD COUGH,HX TOBACCO USE [id number] 05/28/2015 10:47:00 05/28/2015 23:59:59 CLS Outpatient SHAUN TINOCO SUPPLIER MANAGER [facility] RAD LBP,NUMBESS IN LEGS AND FECAL INCONTINTICE [id number] 05/24/2015 12:16:00 05/24/2015 23:59:59 CLS Outpatient SHAUN TINOCO SUPPLIER MANAGER [facility] RAD LBP,NUMBESS IN LEGS AND PAIN [id number] 11/19/2014 10:49:00 11/19/2014 23:59:59 CLS Outpatient MOMO WU MD [facility] CARD HEART MUMUR [id number] 08/22/2014 12:36:00 08/22/2014 23:59:59 CLS Outpatient MOMO WU MD [facility] RAD R HIP PAIN [id number] 12/20/2013 08:54:00 03/19/2014 00:01:00 DIS Outpatient [id number] 02/22/2014 09:00:00 02/22/2014 23:59:59 CLS Outpatient MOMO WU MD [facility] RAD SCREENING [id number] 02/21/2014 11:03:00 02/21/2014 23:59:59 CLS Outpatient MOMO WU MD [facility] LAB HTN,MCC MED USE [id number] 10/20/2013 07:30:00 01/16/2014 00:01:00 DIS Outpatient [id number] 12/17/2013 15:59:00 12/17/2013 20:13:00 DIS Emergency [id number] 10/31/2013 11:12:00 11/08/2013 11:07:00 DIS Inpatient [id number] 06/19/2013 08:54:00 06/19/2013 11:40:00 DIS Outpatient [id number] 06/14/2013 07:24:00 06/14/2013 23:59:59 CLS Outpatient [id number] 03/07/2013 17:46:00 03/07/2013 23:59:59 CLS Outpatient [id number] 02/27/2013 12:19:00 02/27/2013 23:59:59 CLS Outpatient [id number] 11/19/2017 12:45:00 Document Registration
--- OUTSIDE RECORDS SUMMARY | 2017-11-19 14:42 | XMS REPORT | Clinical Summary ---
Author Author [facility] Organization [facility] Address Unknown Phone Unavailable Care Team Providers Care Maintenance Craftsman Name Role Phone PCP Unavailable Source Comments Some departments are not documenting in the electronic medical record. If you do not see the information that you expected, contact Release of Information in the Health Information Management department at [phone] for further assistance in locating additional records.[facility] Allergies No Known Allergies Current Medications Prescription Sig. Disp. Refills Start End Date Status Date vitamins, multiple cap Take 1 Cap by mouth Active daily. Fish Oil-[place]-3 Fatty Take 1 Cap by mouth Active [...] CDT Respiratory Rate 20 01/03/2014 1:21 PM FASTENER TECHNOLOGIST Oxygen Saturation 95% 01/25/2014 11:15 AM CDT Inhaled Oxygen - - Concentration Weight 64 kg (141 lb) 01/03/2014 1:21 PM FASTENER TECHNOLOGIST Height 160 cm (5' 3") 01/03/2014 1:21 PM FASTENER TECHNOLOGIST Body Mass Index 24.98 01/03/2014 1:21 PM FASTENER TECHNOLOGIST Plan of Treatment Health Maintenance Due Date Last Done Comments PHYSICAL (COMPREHENSIVE) 1943 EXAM PERTUSSIS VACCINE 1947 TETANUS VACCINE 1953 SHINGLES VACCINE 1996 OSTEOPOROSIS SCREENING 2001 PREVNAR/PNEUMOVAX (#1) 2001 INFLUENZA VACCINE 06/01/2017 Results Not on filefrom Last 3 Months
[2017-11-19 15:08] LABS: BILIRUBIN,URINE NEGATIVE (NEGATIVE); CLARITY,URINE CLEAR; COLOR,URINE YELLOW; GLUCOSE, URINE (UA) NEGATIVE (NEGATIVE); KETONES,URINE 1+ (NEGATIVE); LEUKOCYTE ESTERASE ,URINE 3+ (NEGATIVE); NITRITE,URINE NEGATIVE (NEGATIVE); PH,URINE 7 (5-9); PROTEIN,URINE NEGATIVE (NEGATIVE); UROBILINOGEN,URINE NORMAL (NORMAL)
[2017-11-19] MEDS ORDERED: CATHETER FLUSH 10 ML SYR IV PRN (15:15)
[2017-11-19] MEDS ORDERED: ONDANSETRON 4 MG/2 ML (SDV) Z0FRAN IV PRN (15:15)
[2017-11-19 15:19] LABS: BACTERIA,URINE MODERATE /HPF; SQUAMOUS EPITHELIAL CELL,UR 0-2 /HPF
[2017-11-19] MEDS: MAGNESIUM 1 GM/100 ML IVPB 100 ML IV SCH ×2 (15:41→23:04)
[2017-11-19] MEDS: NS W/KCL 40 MEQ/L 1,000 ML IV SCH ×2 (15:42→21:51)
[2017-11-19] MEDS: fentaNYL INJECTION 100 MCG/2 ML AMP IV PRN ×2 (15:56→18:55)
[2017-11-19 16:07] VITALS: BP 141/65
[2017-11-19] MEDS ORDERED: LACTATED RINGERS 1,000 ML IV PRN (16:18)
[2017-11-19] MEDS ORDERED: METO-387 PO (17:27)
[2017-11-19] MEDS ORDERED: [UNRECOGNIZED DRUG - OTHER] PO (17:27)
[2017-11-19] MEDS ORDERED: SLIPPERY ELM PO (17:27)
[2017-11-19] MEDS ORDERED: ASPI-983 PO (17:27)
[2017-11-19] MEDS ORDERED: OMG1KC PO (17:27)
[2017-11-19] MEDS ORDERED: L.AC1CAP6 PO (17:27)
[2017-11-19] MEDS ORDERED: MULT-35 PO (17:27)
[2017-11-19] MEDS ORDERED: ELDE1CAP PO (17:27)
[2017-11-19] MEDS ORDERED: AMLO5TAB2 PO (17:27)
[2017-11-19] MEDS ORDERED: CHOL20002 PO (17:27)
[2017-11-19] MEDS ORDERED: LUTE20TA PO (17:27)
[2017-11-19] MEDS ORDERED: HYDR25TA4 PO (17:27)
[2017-11-19] MEDS ORDERED: KETOROLAC 15 MG/ML VIAL ONE (17:36)
[2017-11-19] MEDS ORDERED: KETOROLAC 15 MG/ML VIAL IVP NR (17:45)
[2017-11-19 20:00] VITALS: BP 132/77
[2017-11-20] VITALS: BP 143/66
[2017-11-20] MEDS: fentaNYL INJECTION 100 MCG/2 ML AMP IV PRN ×2 (02:26→05:13)
[2017-11-20 04:00] VITALS: BP 131/99
[2017-11-20] MEDS: NS W/KCL 40 MEQ/L 1,000 ML IV SCH ×4 (04:33→22:16)
[2017-11-20 05:11] LABS: BASOPHILS % (AUTO) 0 % (0-10); EOSINOPHILS # (AUTO) 0.2 10^3/uL (0.0-0.3); EOSINOPHILS % (AUTO) 2 % (0-10); HEMATOCRIT 36 % (35-52); HEMOGLOBIN 12.4 G/DL (11.5-16.0); LYMPHOCYTES # (AUTO) 1.4 X 10^3 (1.0-4.0); LYMPHOCYTES % (AUTO) 13 % (12-44); MEAN CORPUSCULAR HEMOGLOBIN 27 PG (25-34); MEAN CORPUSCULAR HGB CONC 34 G/DL (32-36); MEAN CORPUSCULAR VOLUME 79 FL (80-99); MEAN PLATELET VOLUME 9.4 FL (7.4-10.4); MONOCYTES # (AUTO) 0.8 X 10^3 (0.0-1.0); MONOCYTES % (AUTO) 8 % (0-12); NEUTROPHILS # (AUTO) 7.9 X 10^3 (1.8-7.8); NEUTROPHILS % (AUTO) 77 % (42-75); PLATELET COUNT 208 10^3/uL (130-400); RED BLOOD COUNT 4.57 10^6/uL (4.35-5.85); RED CELL DISTRIBUTION WIDTH 14.9 % (10.0-14.5); WHITE BLOOD COUNT 10.3 10^3/uL (4.3-11.0)
[2017-11-20 05:42] LABS: ALANINE AMINOTRANSFERASE 13 U/L (0-55); ALBUMIN 3.4 GM/DL (3.2-4.5); ALKALINE PHOSPHATASE 52 U/L (40-136); BILIRUBIN,TOTAL 1.7 MG/DL (0.1-1.0); BUN/CREATININE RATIO 13; CALCIUM 8.4 MG/DL (8.5-10.1); CARBON DIOXIDE 26 MMOL/L (21-32); CHLORIDE 97 MMOL/L (98-107); CREATININE SERUM 0.68 MG/DL (0.60-1.30); GFR ESTIMATED > 60; GLUCOSE 101 MG/DL (70-105); MAGNESIUM 2.1 MG/DL (1.8-2.4); POTASSIUM 4.2 MMOL/L (3.6-5.0); SODIUM 133 MMOL/L (135-145); TOTAL PROTEIN 5.8 GM/DL (6.4-8.2)
--- NOTE | 2017-11-20 06:33 | History & Physical-Hospitalist ---
HPI History of Present Illness: HPI/Chief Complaint this is an 82-year-old white female who previously had been well when she was walking down the stairs at a friend's house grabbed the railing and it was loose and she fell striking her left hip. Ex-rays confirm a comminuted intertrochanteric hip fracture. The patient has been seen by Dr. Kessler already and is scheduled for surgery today. the patient denies having had any recent chest pain change in her respiratory status or syncopal spells. She does have a history of moderate aortic stenosis (calculated valve area of 1.1 cm) but denies having had any symptoms associated with that.potassium was low at 3.1 on admission and this is been corrected to 4.2 this morning. She has been on hydrochlorothiazide. Source: patient, old records Exam Limitations: no limitations Date Seen 11/20/17 Time Seen by Provider: 06:15 Attending Physician Dean Kessler DO PCP Momo Carolina MD Referring Physician DEAN KESSLER DO Date of Admission Nov 19, 2017 at 14:00 Home Medications & Allergies Home Medications Reviewed patient Home Medication Reconciliation Form Allergies Allergies Coded Allergies No Known Drug Allergies (Unverified12/31/10) Past Llnkisv-Bgqtll-Syfuwc Hx Patient Social History Marrital Status: Employed/Student: retired Alcohol Use: Denies Use Recreational Drug Use: No Smoking Status: Never a Smoker 2nd Hand Smoke Exposure: No Physical Abuse Screen: No Sexual Abuse: No Recent Foreign Travel: No Contact w/other who traveled: No Recent Infectious Disease Expo: No Immunizations Up To Date Date of Pneumonia Vaccine: Oct 01, 2003 Date of Influenza Vaccine: Aug 02, 2017 Surgeries Yes (, BACK) Hysterectomy, Vascular Surgery (left carotid endarterectomy) Respiratory No Cardiovascular Yes Hypertension, Valvular Heart Disease Neurological No Reproductive System Hx Reproductive Disorders: No Genitourinary No Gastrointestinal Yes Chronic Constipation Musculoskeletal Yes Arthritis Endocrine History of Endocrine Disorders: No HEENT History of HEENT Disorders: No Cancer No Psychosocial History of Psychiatric Problem: No Integumentary History of Skin or Integumenta: No Blood Transfusions History of Blood Disorders: No Adverse Reaction to a Blood Tr: No Family Medical History Significant Family History: Heart Disease, Diabetes, Hypertension, Psychiatric Problems Family Hx: Cataract 09 SISTER Chest pain 03 FATHER Family history: Arthritis 03 FATHER Family history: Cardiovascular disease 03 FATHER Family history: Diabetes mellitus 03 MOTHER Family history: Gastrointestinal disease 03 FATHER Family history: Hypertension 03 MOTHER Hearing loss 03 FATHER Heart disease 03 FATHER Myocardial infarction 03 FATHER Parkinson's disease 03 MOTHER Psychotic disorder 09 SISTER No Family History of: Abdominal aortic aneurysm [place]'s disease Alcoholism Aphasia Cancer Cancer of colon Congenital heart disease Congestive heart failure Cystic fibrosis Dementia Dysphagia Family history: Allergy Family history: Alzheimer's disease Family history: Asthma Family history: Breast disease Family history: Coronary thrombosis Family history: Glaucoma Family history: Osteoporosis Family history: Thyroid disorder Headache Hereditary disease History of - anemia History of - disorder History of - respiratory disease History of drug abuse Human immunodeficiency virus (HIV) seropositivity Hypercholesterolemia Infertile Kidney disease Malignant neoplasm of lung Prostate cancer Seizure disorder Stroke Tuberculosis Visual impairment Review of Systems Constitutional: other (left hip pain) EENTM: no symptoms reported Respiratory: no symptoms reported Cardiovascular: no symptoms reported Gastrointestinal: constipation Genitourinary: no symptoms reported Musculoskeletal: joint pain Skin: no symptoms reported Psychiatric/Neurological: No Symptoms Reported Physical Exam Physical Exam Vital Signs Vital Sign - Last 12Hours 11/19/17 11/19/17 12:06 14:40 Temp 98.0 Pulse 94 Resp 18 B/P (MAP) 165/77 (106) Pulse Ox 94 O2 Delivery Room Air O2 Flow Rate 5.00 Capillary Refill : Less Than 3 SecondsLess Than 3 Seconds General Appearance: Mild Distress HEENT: Normal ENT Inspection Neck: Other (left carotid endarterectomy scar) Respiratory: Lungs Clear, Normal Breath Sounds, No Accessory Muscle Use, No Respiratory Distress Cardiovascular: Regular Rate, Rhythm, Systolic Murmur (2-3/6) Gastrointestinal: Normal Bowel Sounds, Non Tender, Soft Extremity: No Pedal Edema, Other (pulses 2+) Neurologic/Psychiatric: Alert, Oriented x3, No Motor/Sensory Deficits, Normal Mood/Affect Skin: Normal Color, Warm/Dry Results Results/Procedures Lab Laboratory Tests 11/19/17 12:31 11/20/17 04:12 11/20/17 04:33 Assessment/Plan Admission Diagnosis 1. Left hip fracture scheduled for surgery today. 2. Hypokalemia corrected. 3. History of hypertension we'll continue her medications perioperatively- however will hold her hydrochlorothiazide at this time 4. Peripheral vascular disease with a history of carotid endarterectomy pedal pulses are good. 5. Hypomagnesemia corrected 6. Aortic stenosis moderate as calculated on echocardiogram June 2017-1.1 cm asymptomatic 7. History of constipation which she has taken slippery elm for in the past. May continue this postoperatively 8. Elevated total bilirubin this morning of uncertain etiology will follow at this point the patient is medically optimized for surgery and the risks of not proceeding outweigh the risks of surgery Copy Copies To 1: MOMO CAROLINA MD Clinical Quality Measures DVT/VTE Risk/Contraindication: Risk Factor Score Per Nursin RFS Level Per Nursing on Admit: 4+=Very High Contraindications-Pharm: Other *list below* Other: surgery today AMRIT LAMBERT MD Nov 20, 2017 06:33
[2017-11-20] MEDS ORDERED: NEO/POLY/BAC (NEOSPORIN) OINT 15 GM TUBE ONE (07:29)
[2017-11-20] MEDS ORDERED: proPOfol 200 MG/20 ML (DIPRIVAN) VIAL IV ONE (07:32)
[2017-11-20] MEDS ORDERED: LIDOCAINE PF 2% 5 ML (XYLOCAINE) VIAL ONE (07:32)
[2017-11-20] MEDS ORDERED: fentaNYL INJECTION 100 MCG/2 ML AMP ONE (07:32)
--- NOTE | 2017-11-20 07:58 | History & Physical-Surgical ---
HPO-Surgical History of Present Illness Chief Complaint: ARRIVED VIA EMS FROM FRIENDS HOME. STATES SHE WAS GOING UP THE STIARS AND THE RAILING BROKE OFF CAUSING HER TO FALL DOWN 3-4 STAIRS. DENIES HITTING HEAD. YADI PAIN. STATES HER LEFT LEG FEELS NUMB. Diagnosis/Surgical Indication: comminuted displaced left intertrochanteric hip fracture Procedure: Intramedullary nailing of left hip fracture Date of Surgery: Nov 20, 2017 Weight (Pounds): 150 Weight (Ounces): 0.0 Height (Feet): 5 Height (Inches): 2.00 Allergies and Home Medications Allergies Coded Allergies: No Known Drug Allergies (Unverified , 12/31/10) Home Medications Amlodipine Besylate 5 Mg Tablet, 5 MG PO DAILY, (Reported) Aspirin 81 Mg Tablet.dr, 81 MG PO DAILY, (Reported) Cholecalciferol (Vitamin D3) 2,000 Unit Capsule, 2,000 UNIT PO 1200, (Reported) Elderberry Fruit and Flower 1 Each Capsule, 1 CAP PO BID, (Reported) Hydrochlorothiazide 25 Mg Tablet, 25 MG PO DAILY, (Reported) L.acidoph & Paracasei,B.lactis 1 Each Capsule, 1 CAP PO BID, (Reported) Lutein 20 Mg Tablet, 20 MG PO BID, (Reported) Metoprolol Succinate 25 Mg Tab.er.24h, 25 MG PO DAILY, (Reported) Multivitamin 1 Each Tablet, 0.5 TAB PO BID, (Reported) [place] 3 Polyunsat Fatty Acids 1,000 Mg Cap, 1,000 MG PO TID, (Reported) [Proactazyme] , 1 CAP PO TID, (Reported) [Slippery Elm] , 1 CAP PO TID, (Reported) Past Veigxvp-Bxccns-Yqipge Hx Patient Social History Marrital Status: Employed/Student: retired Alcohol Use: Denies Use Recreational Drug Use: No Smoking Status: Never a Smoker 2nd Hand Smoke Exposure: No Physical Abuse Screen: No Sexual Abuse: No Recent Foreign Travel: No Contact w/other who traveled: No Recent Infectious Disease Expo: No Immunizations Up To Date Date of Pneumonia Vaccine: Oct 01, 2003 Date of Influenza Vaccine: Aug 02, 2017 Surgeries Yes (, BACK) Hysterectomy, Vascular Surgery (left carotid endarterectomy) Respiratory No Cardiovascular Yes Hypertension, Valvular Heart Disease Neurological No Reproductive System Hx Reproductive Disorders: No Genitourinary No Gastrointestinal Yes Chronic Constipation Musculoskeletal Yes Arthritis Endocrine History of Endocrine Disorders: No HEENT History of HEENT Disorders: No Cancer No Psychosocial History of Psychiatric Problem: No Integumentary History of Skin or Integumenta: No Blood Transfusions History of Blood Disorders: No Adverse Reaction to a Blood Tr: No Family Medical History Significant Family History: Heart Disease, Diabetes, Hypertension, Psychiatric Problems Family Hx: Cataract 09 SISTER Chest pain 03 FATHER Family history: Arthritis 03 FATHER Family history: Cardiovascular disease 03 FATHER Family history: Diabetes mellitus 03 MOTHER Family history: Gastrointestinal disease 03 FATHER Family history: Hypertension 03 MOTHER Hearing loss 03 FATHER Heart disease 03 FATHER Myocardial infarction 03 FATHER Parkinson's disease 03 MOTHER Psychotic disorder 09 SISTER No Family History of: Abdominal aortic aneurysm [place]'s disease Alcoholism Aphasia Cancer Cancer of colon Congenital heart disease Congestive heart failure Cystic fibrosis Dementia Dysphagia Family history: Allergy Family history: Alzheimer's disease Family history: Asthma Family history: Breast disease Family history: Coronary thrombosis Family history: Glaucoma Family history: Osteoporosis Family history: Thyroid disorder Headache Hereditary disease History of - anemia History of - disorder History of - respiratory disease History of drug abuse Human immunodeficiency virus (HIV) seropositivity Hypercholesterolemia Infertile Kidney disease Malignant neoplasm of lung Prostate cancer Seizure disorder Stroke Tuberculosis Visual impairment Exam Vital Signs Vital Signs 11/20/17 04:00 Temp 98.8 Pulse 87 Resp 16 B/P (MAP) 131/99 (110) Pulse Ox 99 O2 Delivery Nasal Cannula O2 Flow Rate 2.00 2.00 Capillary Refill : Less Than 3 SecondsLess Than 3 Seconds Labs Laboratory Tests Test 11/19/17 12:31 11/19/17 15:00 11/20/17 04:12 11/20/17 04:33 Range/Units White Blood Count 15.7 H 10.3 4.3-11.0 10^3/uL Red Blood Count 5.14 4.57 4.35-5.85 10^6/uL Hemoglobin 13.8 12.4 11.5-16.0 G/DL Hematocrit 41 36 35-52 % Mean Corpuscular Volume 79 L 79 L 80-99 FL Mean Corpuscular Hemoglobin 27 27 25-34 PG Mean Corpuscular Hemoglobin Concent 34 34 32-36 G/DL Red Cell Distribution Width 15.2 H 14.9 H 10.0-14.5 % Platelet Count 239 208 130-400 10^3/uL Mean Platelet Volume 9.3 9.4 7.4-10.4 FL Neutrophils (%) (Auto) 79 H 77 H 42-75 % Lymphocytes (%) (Auto) 13 13 12-44 % Monocytes (%) (Auto) 6 8 0-12 % Eosinophils (%) (Auto) 2 2 0-10 % Basophils (%) (Auto) 0 0 0-10 % Neutrophils # (Auto) 12.4 H 7.9 H 1.8-7.8 X 10^3 Lymphocytes # (Auto) 2.0 1.4 1.0-4.0 X 10^3 Monocytes # (Auto) 0.9 0.8 0.0-1.0 X 10^3 Eosinophils # (Auto) 0.4 H 0.2 0.0-0.3 10^3/uL Basophils # (Auto) 0.1 0.0 0.0-0.1 10^3/uL Neutrophils % (Manual) 81 % Lymphocytes % (Manual) 13 % Monocytes % (Manual) 3 % Eosinophils % (Manual) 3 % Toxic Granulation 1+ Blood Morphology Comment NORMAL Sodium Level 136 133 L 135-145 MMOL/L Potassium Level 3.1 L 4.2 3.6-5.0 MMOL/L Chloride Level 93 L 97 L 98-107 MMOL/L Carbon Dioxide Level 29 26 21-32 MMOL/L Anion Gap 14 10 5-14 MMOL/L Blood Urea Nitrogen 15 9 7-18 MG/DL Creatinine 0.83 0.68 0.60-1.30 MG/DL Estimat Glomerular Filtration Rate > 60 > 60 BUN/Creatinine Ratio 18 13 Glucose Level 95 101 70-105 MG/DL Calcium Level 9.7 8.4 L 8.5-10.1 MG/DL Magnesium Level 1.7 L 2.1 1.8-2.4 MG/DL Total Bilirubin 0.9 1.7 H 0.1-1.0 MG/DL Aspartate Amino Transf (AST/SGOT) 20 19 5-34 U/L Alanine Aminotransferase (ALT/SGPT) 18 13 0-55 U/L Alkaline Phosphatase 64 52 40-136 U/L Total Protein 7.2 5.8 L 6.4-8.2 GM/DL Albumin 4.2 3.4 3.2-4.5 GM/DL Urine Color YELLOW Urine Clarity CLEAR Urine pH 7 5-9 Urine Specific [place] 1.005 L 1.016-1.022 Urine Protein NEGATIVE NEGATIVE Urine Glucose (UA) NEGATIVE NEGATIVE Urine Ketones 1+ H NEGATIVE Urine Nitrite NEGATIVE NEGATIVE Urine Bilirubin NEGATIVE NEGATIVE Urine Urobilinogen NORMAL NORMAL MG/DL Urine Leukocyte Esterase 3+ H NEGATIVE Urine RBC (Auto) NEGATIVE NEGATIVE Urine RBC NONE /HPF Urine WBC 10-25 H /HPF Urine Squamous Epithelial Cells 0-2 /HPF Urine Crystals NONE /LPF Urine Bacteria MODERATE H /HPF Urine Casts NONE /LPF Urine Mucus NEGATIVE /LPF Urine Culture Indicated YES General Appearance: Alert, Oriented X3, No Acute Distress HEENT: Atraumatic, PERRLA Respiratory: Clear to Auscultation Cardiovascular: Regular Rate Abdominal: Normal Bowel Sounds, Soft, No Tenderness Extremities: No Clubbing, No Cyanosis, Normal Pulses, Other (tenderness left hip, severe shortening and external rotation of left leg) Skin: No Rashes, No Breakdown, No Significant Lesion Neuro: Normal Tone, Sensation Intact, Reflexes 2+ Psych/Mental Status: Mental Status NL Assessment/Plan Assessment and Plan A: comminuted displaced intertrochanteric/subtrochanteric left hip fracture, fall, hypokalemia (resolved) P: intramedullary nailing left hip, admit to hospital post op, plan to DC to retirement next week, likely or Wed. Problems: SERGEY FULTON APRN Nov 20, 2017 7:58 am
[2017-11-20] MEDS ORDERED: diphenhydrAMINE 50 MG/ML INJ (BENADRYL) IV PRN (08:00)
[2017-11-20] MEDS ORDERED: ceFAZolin 2 GM/50 ML NS 50 ML IV NR (08:00)
[2017-11-20] MEDS ORDERED: ONDANSETRON 4 MG/2 ML (SDV) Z0FRAN IVP PRN ×2 (08:00→10:00)
[2017-11-20] MEDS ORDERED: BISACODYL 10 MG SUPP (DULCOLAX) PR PRN (08:00)
[2017-11-20] MEDS ORDERED: ceFAZolin 1,000 MG (ANCEF) VIAL ONE ×2 (08:28→08:30)
[2017-11-20] MEDS ORDERED: LABETALOL HCL 20 MG/4 ML VIAL ONE (08:52)
[2017-11-20] MEDS ORDERED: SEVOFLURANE (ULTANE) 15 ML INHAL SOLN ONE ×2 (08:52→09:28)
[2017-11-20] MEDS ORDERED: morphine INJ 10 MG/ML 1ML (SYR OR VIAL) ONE (09:02)
--- NOTE | 2017-11-20 09:46 | Progress Note-Pre Operative ---
Pre-Operative Progress Note H&P Reviewed The H&P was reviewed, patient examined and no changes noted. Date Seen by Provider: Nov 20, 2017 Time Seen by Provider: 08:00 Date H&P Reviewed: Nov 20, 2017 Time H&P Reviewed: 08:00 Pre-Operative Diagnosis: Comminuted displaced intertrochanteric subtrochanteric left hip fracture DEAN MCLEOD DO Nov 20, 2017 9:46 am
--- NOTE | 2017-11-20 09:47 | Diagnostic Imaging Report ---
Indication: Left hip fracture Comparison: 11/19/2017 Findings/impression: Fluoroscopy is provided for open reduction and internal fixation of proximal left femur fracture. Fluoroscopy time is 83.4 seconds. 4 fluoroscopic spot images from the procedure submitted for review which show intramedullary arthur and pin in the proximal left femur traversing the intertrochanteric fracture. No complicating process is seen. Dictated by: Dictated on workstation # [id number]
--- NOTE | 2017-11-20 09:48 | Progress Note-Post Operative ---
Post-Operative Progess Note Surgeon (s)/Accounts Receivable Representative (s) Surgeon DEAN MCLEOD DO Accounts Receivable Representative: Lio Gramajo INSTALLATION ENGINEERKimberly Pre-Operative Diagnosis Comminuted displaced intertrochanteric subtrochanteric left hip fracture Post-Operative Diagnosis same Procedure & Operative Findings Date of Procedure 11/20/17 Procedure Performed/Findings Intramedullary nailing intertrochanteric subtrochanteric left hip fracture Anesthesia Type General Estimated Blood Loss Estimated blood loss (mL): 100 ml Specimens/Packing Specimens Removed none DEAN MCLEOD DO Nov 20, 2017 9:48 am
[2017-11-20] MEDS: morphine INJ 10 MG/ML 1ML (SYR OR VIAL) IVP PRN ×2 (10:20→10:26)
[2017-11-20 11:06] VITALS: BP 117/63
[2017-11-20] MEDS: amLODIPine 5 MG (NORVASC) TAB PO SCH (11:06)
[2017-11-20] MEDS: ASPIRIN E.C. 81 MG (ECOTRIN) TAB PO SCH (11:15)
--- NOTE | 2017-11-20 12:35 | OPERATIVE REPORT ---
DATE OF SERVICE: 11/20/2017 PREOPERATIVE DIAGNOSIS: Comminuted displaced intertrochanteric subtrochanteric left hip fracture. POSTOPERATIVE DIAGNOSIS: Comminuted displaced intertrochanteric subtrochanteric left hip fracture. PROCEDURE: Intramedullary nailing intertrochanteric subtrochanteric fracture left hip fracture. SURGEON: Dean Mcleod DO ALIGNER BARREL AND RECEIVER: MAYKEL Curry SURGICAL ALIGNER BARREL AND RECEIVER DUTIES: Lio Gramajo, surgical elastic knitter hand frame was utilized throughout the entire procedure for patient positioning, application of traction to the left lower extremity, wound retraction, placement of metallic internal fixation devices, wound closure, dressing application and patient transfer. ANESTHESIA: General. COMPLICATIONS: None. ESTIMATED BLOOD LOSS: 100 mL. INDICATIONS AND FINDINGS: The patient is an 82-year-old female, who was descending stairs on yesterday's date of 11/19/17 when she slipped and fell noting immediate pain and deformity about the left lower extremity. X-rays revealed a comminuted displaced intertrochanteric fracture with a displaced lesser trochanter and a fracture extending longitudinally along the medial aspect of the proximal femoral shaft in the subtrochanteric region. The patient was taken to surgery where an intramedullary nailing was performed with the [employer] trochanteric fixation nail system with an 11 mm x 340 mm Titanium cannulated trochanteric fixation nail along with a 100 mm helical blade. PROCEDURE IN DETAIL: The patient was transported to the operating room where general inhalation anesthetic was administered. The patient was placed supine upon the fracture table. The right lower extremity was draped out of the operating field. The left lower extremity was placed in traction. The C-arm was used to verify a closed reduction of the patient's intertrochanteric subtrochanteric fracture. A ChloraPrep and sterile drape of the left hip and left lower extremity was performed. The C-arm was used to verify incision sites. A longitudinal incision was then made proximal to the greater trochanter. It was deepened with electrocautery down to the tip of the trochanter. A guide pin was placed through the tip of the trochanter across the fracture site and into the proximal femoral shaft. The guidepin placement was verified in the AP and lateral plane. The cortex was then overdrilled with the tissue protector within the wound. A reduction guide arthur was then placed through the commercial airline pilot hole across the fracture site into the femoral shaft and verified fluoroscopically at the level of the knee. The TFN construct was then secured to the outrigger guides. The nail was placed over the guide arthur advanced across the fracture site into the femoral shaft. This was impacted into position. A stab incision was made along the lateral aspect of the left thigh, sharply deepened through the iliotibial band and bluntly through the vastus lateralis. The guide pin was then directed through the lateral femoral cortex through the nail and into the central aspect of the femoral neck and head. The outer cortex was then reamed. The guide arthur was then reamed within 2 cm of the subchondral bone in the femoral head. The helical blade was then impacted into position. The proximal screw was then tightened. Compression was applied to the fracture with an anatomic reduction obtained. The outrigger guides were removed. The wounds were irrigated extensively with normal saline solution. The iliotibial band was closed with a running suture of #1 Vicryl. The subcutaneous tissues at both incisions were closed with 0 and 2-0 Vicryl suture and subsequently with stainless steel hao and Adaptic Neosporin bulky dressing was placed about the left hip and left thigh. The patient was awake and was transferred to postoperative recovery with anesthesia personnel present in satisfactory condition. . Job ID: [id number] DocumentID: [id number] Dictated Date: 11/20/2017 09:57:36 Tannery Worker Date: 11/20/2017 12:34:55 Dictated By: DEAN MCLEOD DO
[2017-11-20] MEDS: HYDROcodone/APAP 10 MG/325 MG (LORTAB) TAB PO PRN (15:21)
[2017-11-20] MEDS: ceFAZolin 2 GM/50 ML NS 50 ML IV SCH ×2 (16:34→23:53)
[2017-11-20 16:59] VITALS: BP 108/58
[2017-11-20 20:02] VITALS: BP 123/66
[2017-11-21] VITALS: BP 130/64
[2017-11-21 03:59] VITALS: BP 121/59
[2017-11-21 05:15] LABS: HEMOGLOBIN 10.4 G/DL (11.5-16.0); MEAN PLATELET VOLUME 9.9 FL (7.4-10.4); RED BLOOD COUNT 3.87 10^6/uL (4.35-5.85); RED CELL DISTRIBUTION WIDTH 14.9 % (10.0-14.5); WHITE BLOOD COUNT 11.4 10^3/uL (4.3-11.0)
[2017-11-21] MEDS: NS W/KCL 40 MEQ/L 1,000 ML IV SCH (05:15)
[2017-11-21 06:10] LABS: BUN/CREATININE RATIO 14; CALCIUM 7.8 MG/DL (8.5-10.1); CARBON DIOXIDE 21 MMOL/L (21-32); CHLORIDE 103 MMOL/L (98-107); CREATININE SERUM 0.69 MG/DL (0.60-1.30); GFR ESTIMATED > 60; GLUCOSE 122 MG/DL (70-105); POTASSIUM 5.5 MMOL/L (3.6-5.0); SODIUM 133 MMOL/L (135-145)
[2017-11-21 08:00] VITALS: BP 125/59
[2017-11-21] MEDS: SENNA W/DOCUSATE (SENOKOT S) TABLET PO SCH ×2 (08:28→20:32)
[2017-11-21] MEDS: amLODIPine 5 MG (NORVASC) TAB PO SCH (08:28)
[2017-11-21] MEDS: HYDROcodone/APAP 10 MG/325 MG (LORTAB) TAB PO PRN ×2 (08:28→20:37)
[2017-11-21] MEDS: ASPIRIN E.C. 81 MG (ECOTRIN) TAB PO SCH (08:28)
[2017-11-21] MEDS: ENOXAPARIN 40 MG/0.4 ML (LOVENOX) SYR SC SCH (08:29)
--- NOTE | 2017-11-21 10:32 | Physical Therapy Evaluation ---
PT Evaluation-General Medical Diagnosis Admission Date Nov 19, 2017 at 14:00 Medical Diagnosis: (L) hip fx; IM nail Onset Date: Nov 19, 2017 Therapy Diagnosis Therapy Diagnosis: limited mobility Height/Weight Height (Feet): 5 Height (Inches): 2.00 Weight (Pounds): 150 Weight (Ounces): 0.0 Precautions Precautions/Isolations: Fall Prevention, Standard Precautions Weight Bear Status Right Lower Extremity: Right Full Weight Bearing Left Lower Extremity: Left Touch Toe Bearing Referral Physician: Jesse Kessler DO Reason for Referral: Evaluation/Treatment Medical History Pertinent Medical History: HTN, Parkinson's Additional Medical History multiple back surgeries (Dr. Montgomery), (L) endartectomy, valvular heart disease Current History Pt fell down 3-4 steps at home resulting in (L) hip fx. Underwent IM nail ORIF for (L) hip on 11/20/17. Reviewed History: Yes Social History Home: Single Level Current Living Status: Alone Entry Into Home: Stairs With Railing PT Steps Into Home: 4 PT Steps Inside Home: 0 Prior/Core FIM Prior Level of Function Functional [place] Measure 0=Not Assessed/NA 4=Minimal Assistance 1=Total Assistance 5=Supervision or Setup 2=Maximal Assistance 6=Modified [place] 3=Moderate Assistance 7=Complete [place] Bed Mobility: 7 Transfers (B,C,W/C) (FIM): 7 Gait: 7 Locomotion: 7 Pt reported complete (I) prior to the fall. PT Evaluation-Current Subjective (L) hip/groin pain limiting tolerance to movement. Pain Numeric Pain Scale: 6 Location: Left Location Body Site: Hip Pain Description: Stabbing, Sharp Pt/Family Goals Return home. Objective Patient Orientation: Person, Place, Time, Situation Problem Solving: Good Comprehension: 7 Expression: 7 Social Interaction: 7 Problem Solvin Attachments: Oxygen, Jasso Catheter (7) ROM/Strength ROM Upper Extremities WFL (B) ROM Lower Extremities (R) LE WFL. (L) hip flexion and abduction limited due to pain. Strength Upper Extremities WFL (B) Strength Lower Extremities (R) LE MMT 4+/5. (L) hip flex, abduct, adduct, extend MMT 3-/5. (L) knee and ankle MMT 4-/5. Integumentary/Posture Bowel Incontinence: No Bladder Incontinence: Jasso Cath Neuromuscular (Tone, Coordination, Reflexes) Intact sensation and reflexes in (B) LEs. Sensory Vision: Functional Hearing: Functional Sensation Right Upper Extremit: Intact Sensation Left Upper Extremity: Intact Sensation Right Lower Extremit: Intact Sensation Left Lower Extremity: Intact Transfers Functional [place] Measure 0=Not Assessed/NA 4=Minimal Assistance 1=Total Assistance 5=Supervision or Setup 2=Maximal Assistance 6=Modified [place] 3=Moderate Assistance 7=Complete [place] Transfers (B, C, W/C) (FIM): 3 Scootin Rollin Supine to/from Sit: 3 Sit to/from Stand: 3 Gait Mode of Locomotion: Walk Anticipated Mode of Locomotion: Walk Gait (FIM): 1 Distance (FIM): 1=up to 49 ft Distance: 3ft Gait Level of Assist: 1 Gait Persons Needed: 1 Gait Assistive Device: FWW Comments/Gait Description Pt was able to take 4 steps (R), 2 steps forward, and 2 steps back, with TTWB for the (L). Balance Sitting Static: Normal Sitting Dynamic: Normal Standing Static: Good Standing Dynamic: Good Assessment/Needs Pt has limited tolerance to (L) LE movement and wt bearing. Pt to benefit from PT to address (L) LE ROM, strength, ambulation, bed mobility, and transfers. Rehab Potential: Good PT Short Term Goals Short Term Goals Time Frame: Dec 05, 2017 Transfers (B,C,W/C) (FIM): 6 Gait (FIM): 5 Distance (FIM): 3=150 ft Gait Distance Comment: at least 200ft with FWW Gait Level of Assist: 5 Gait Assistive Device: FWW Stairs (FIM): 2 # of Steps: 1 Stairs Level of Assist: 2 PT Detention Goals Detention Goals PT Electrical Continuity Tester Goals Time Frame: Dec 19, 2017 Transfers (B,C,W/C) (FIM): 6 Gait (FIM): 6 Gait distance (FIM): 3=150 ft Distance: 250ft Gait Level of Assist: 6 Gait Assistive Device: FWW Stairs (FIM): 2 # of Steps: 4 Stairs Level Of Assist: 6 PT Plan Problem List Problem List: Functional Strength, Safety, Balance, Gait, Transfer, Bed Mobility, ROM Treatment/Plan Treatment Plan: Continue Plan of Care Treatment Plan: Bed Mobility, Education, Functional Activity Jessika, Functional Strength, Gait, Safety, Therapeutic Exercise, Transfers Treatment Duration: Dec 19, 2017 Frequency: 11 times per week Estimated Hrs Per Day: .5 hour per day Patient and/or Family Agrees t: Yes Time/GCodes Time In: 0955 Time Out: 1025 Total Billed Treatment Time: 30 Total Billed Treatment 1, [facility] 30 BETHANY HERRERA PT Nov 21, 2017 10:32
--- NOTE | 2017-11-21 11:26 | Progress Note-Hospitalist ---
Subjective HPI/CC On Admission Date Seen by Provider: Nov 21, 2017 Time Seen by Provider: 11:05 this is an 82-year-old white female who previously had been well when she was walking down the stairs at a friend's house grabbed the railing and it was loose and she fell striking her left hip. Ex-rays confirm a comminuted intertrochanteric hip fracture. The patient has been seen by Dr. Kessler already and is scheduled for surgery today. the patient denies having had any recent chest pain change in her respiratory status or syncopal spells. She does have a history of moderate aortic stenosis (calculated valve area of 1.1 cm) but denies having had any symptoms associated with that.potassium was low at 3.1 on admission and this is been corrected to 4.2 this morning. She has been on hydrochlorothiazide. Subjective/Events-last exam patient is postop day number 1 and denies having any chest discomfort or shortness of breath. Her primary complaint is of her left hip discomfort. Review of Systems Musculoskeletal: leg pain Neurological: Weakness Objective Exam Vital Signs Vital Sign - Last 12Hours 11/19/17 11/19/17 12:06 14:40 Temp 98.0 Pulse 94 Resp 18 B/P (MAP) 165/77 (106) Pulse Ox 94 O2 Delivery Room Air O2 Flow Rate 5.00 Capillary Refill : Less Than 3 SecondsLess Than 3 Seconds General Appearance: No Apparent Distress, WD/WN HEENT: Normal ENT Inspection Neck: Supple Respiratory: Lungs Clear, Normal Breath Sounds, No Accessory Muscle Use, No Respiratory Distress Cardiovascular: Regular Rate, Rhythm, Systolic Murmur Gastrointestinal: Normal Bowel Sounds, Non Tender, Soft Extremity: No Calf Tenderness, No Pedal Edema Neurologic/Psychiatric: Alert, Oriented x3, No Motor/Sensory Deficits, Normal Mood/Affect Skin: Normal Color, Warm/Dry Results/Procedures Lab Laboratory Tests 11/21/17 04:56 Assessment/Plan Assessment and Plan Assess & Plan/Chief Complaint 1. Left hip fracture -stop day number 1 status post intramedullary nailing of intertrochanteric comminuted fracture 2. Hypokalemia -resolved now hyperkalemic will DC IV fluids with potassium 3. History of hypertension we'll continue her medications perioperatively- however will hold her hydrochlorothiazide at this time 4. Peripheral vascular disease with a history of carotid endarterectomy pedal pulses are good. 5. Hypomagnesemia corrected 6. Aortic stenosis moderate as calculated on echocardiogram June 2017-1.1 cm asymptomatic 7. History of constipation which she has taken slippery elm for in the past. May continue this postoperatively 8. Elevated total bilirubin this morning of uncertain etiology will follow we'll be ready for evaluation for rehabilitation tomorrow AMRIT LAMBERT MD Nov 21, 2017 11:26 am
[2017-11-21 12:00] VITALS: BP 125/60
--- NOTE | 2017-11-21 13:04 | Anesthesia-General Post-Op ---
General Patient Condition Mental Status/LOC: Same as Preop Cardiovascular: Satisfactory Nausea/Vomiting: Absent Respiratory: Satisfactory Pain: Controlled Complications: Absent Post Op Complications Complications None Follow Up Care/Instructions Patient Instructions None needed. Anesthesia/Patient Condition Patient Condition Patient is doing well, no complaints, stable vital signs, no apparent adverse anesthesia problems. No complications reported per nursing. RADHA VANG CRNA Nov 21, 2017 13:04
[2017-11-21] MEDS: NITROFURANTOIN 50 MG (MACRODANTIN) CAP PO SCH ×2 (13:53→16:46)
[2017-11-21 15:28] VITALS: BP 149/66
--- NOTE | 2017-11-21 21:07 | Progress Note (SOAP) ---
Subjective Date Seen by Provider: Nov 21, 2017 Time Seen by Provider: 21:04 Subjective/Events-last exam Pod #1 s/p IM nailing of left hip fracture. She is concerned about her not being able to take her herbal medications while admitted to hospital. Currently complains of moderate pain. Just given norco. No other complaints. Objective Exam Vital Signs Date Time Temp Pulse Resp B/P (MAP) Pulse Ox O2 Delivery O2 Flow Rate FiO2 11/21/17 15:28 98.7 88 24 149/66 (93) 91 Nasal Cannula 2.00 2.00 11/21/17 12:00 98.8 89 20 125/60 (81) 92 Nasal Cannula 2.00 2.00 11/21/17 09:19 Nasal Cannula 1.50 11/21/17 09:00 92 Nasal Cannula 1.50 11/21/17 08:00 99.4 91 24 125/59 (81) 92 Nasal Cannula 2.00 2.00 11/21/17 03:59 97.8 75 20 121/59 (79) 95 Nasal Cannula 2.00 2.00 11/21/17 00:00 98.6 80 16 130/64 (86) 96 Nasal Cannula 2.00 2.00 I & O 11/21/17 07:00 Intake Total 2130 ml Output Total 2115 ml Balance 15 ml Capillary Refill : Less Than 3 SecondsLess Than 3 Seconds General Appearance: No Apparent Distress Extremity: Normal Inspection, No Calf Tenderness, No Pedal Edema Neurologic/Psychiatric: Alert, Oriented x3, No Motor/Sensory Deficits, Normal Mood/Affect Skin: Normal Color, Warm/Dry (dressing left hip CDI) Results Lab Laboratory Tests 11/21/17 04:56: White Blood Count 11.4H, Red Blood Count 3.87L, Hemoglobin 10.4L, Hematocrit 31L , Mean Corpuscular Volume 81, Mean Corpuscular Hemoglobin 27, Mean Corpuscular Hemoglobin Concent 33, Red Cell Distribution Width 14.9H, Platelet Count 190, Mean Platelet Volume 9.9, Sodium Level 133L, Potassium Level 5.5H, Chloride Level 103, Carbon Dioxide Level 21, Anion Gap 9, Blood Urea Nitrogen 10, Creatinine 0.69, Estimat Glomerular Filtration Rate > 60, BUN/Creatinine Ratio 14, Glucose Level 122H, Calcium Level 7.8L Microbiology 11/19/17 MRSA Screen - Final, Complete MRSA not isolated 11/19/17 Urine Culture - Final, Complete Escherichia Coli Assessment/Plan Assessment/Plan Assess & Plan/Chief Complaint A: s/p IM nailing of displaced comminuted intertrochanteric left hip fracture Hyperkalemia Resolved hypokalemia P: Continue current treatment. Hospitalist service to manage medical issues. Plan for orthopedics to sign off tomorrow. Clinical Quality Measures DVT/VTE Risk/Contraindication: Risk Factor Score Per Nursin RFS Level Per Nursing on Admit: 4+=Very High Contraindications-Pharm: Other *list below* Other: surgery today SERGEY FULTON APRN Nov 21, 2017 9:06 pm
[2017-11-22] VITALS: BP 145/64
[2017-11-22] MEDS: NITROFURANTOIN 50 MG (MACRODANTIN) CAP PO SCH ×5 (00:51→23:15)
[2017-11-22] MEDS: HYDROcodone/APAP 10 MG/325 MG (LORTAB) TAB PO PRN ×2 (06:07→10:38)
[2017-11-22 06:46] LABS: HEMOGLOBIN 10.9 G/DL (11.5-16.0); MEAN PLATELET VOLUME 9.9 FL (7.4-10.4); RED BLOOD COUNT 4.02 10^6/uL (4.35-5.85); RED CELL DISTRIBUTION WIDTH 15.3 % (10.0-14.5); WHITE BLOOD COUNT 9.6 10^3/uL (4.3-11.0)
[2017-11-22 07:17] LABS: BUN/CREATININE RATIO 12; CALCIUM 8.2 MG/DL (8.5-10.1); CARBON DIOXIDE 29 MMOL/L (21-32); CHLORIDE 97 MMOL/L (98-107); CREATININE SERUM 0.69 MG/DL (0.60-1.30); GFR ESTIMATED > 60; GLUCOSE 98 MG/DL (70-105); POTASSIUM 4.3 MMOL/L (3.6-5.0); SODIUM 133 MMOL/L (135-145)
[2017-11-22 08:00] VITALS: BP 173/76
--- NOTE | 2017-11-22 09:23 | Progress Note (SOAP) ---
Subjective Date Seen by Provider: Nov 22, 2017 Time Seen by Provider: 08:30 Subjective/Events-last exam pt reports that she is feeling poorly today - she wants to restart her home medications - specifically her herbal medications. she reports that she is interested in physical therapy at [facility] for increased strengthening. Review of Systems General: No Chills, Fatigue HEENT: No Head Aches Pulmonary: No Dyspnea, No Cough Cardiovascular: No: Chest Pain, Palpitations Gastrointestinal: Diarrhea (intermittent), No: Nausea, Abdominal Pain Musculoskeletal: leg pain Neurological: Weakness Objective Exam Vital Signs Date Time Temp Pulse Resp B/P (MAP) Pulse Ox O2 Delivery O2 Flow Rate FiO2 11/22/17 00:00 98.0 87 18 145/64 (91) 92 Nasal Cannula 2.00 2.00 11/21/17 21:00 Nasal Cannula 1.50 11/21/17 15:28 98.7 88 24 149/66 (93) 91 Nasal Cannula 2.00 2.00 11/21/17 12:00 98.8 89 20 125/60 (81) 92 Nasal Cannula 2.00 2.00 I & O 11/22/17 07:00 Intake Total 4040 ml Output Total 3475 ml Balance 565 ml Capillary Refill : Less Than 3 SecondsLess Than 3 Seconds General Appearance: No Apparent Distress, WD/WN HEENT: PERRL/EOMI, Pharynx Normal Neck: Full Range of Motion, Supple Respiratory: Chest Non Tender, Lungs Clear, Normal Breath Sounds, No Accessory Muscle Use Cardiovascular: Regular Rate, Rhythm Gastrointestinal: normal bowel sounds, non tender, soft, no organomegaly, no pulsatile mass Extremity: No Pedal Edema Neurologic/Psychiatric: Alert, Oriented x3, Normal Mood/Affect Skin: Warm/Dry Results Lab Laboratory Tests 11/22/17 06:12: White Blood Count 9.6, Red Blood Count 4.02L, Hemoglobin 10.9L, Hematocrit 33L, Mean Corpuscular Volume 82, Mean Corpuscular Hemoglobin 27, Mean Corpuscular Hemoglobin Concent 33, Red Cell Distribution Width 15.3H, Platelet Count 185, Mean Platelet Volume 9.9, Sodium Level 133L, Potassium Level 4.3, Chloride Level 97L, Carbon Dioxide Level 29, Anion Gap 7, Blood Urea Nitrogen 8, Creatinine 0.69, Estimat Glomerular Filtration Rate > 60, BUN/Creatinine Ratio 12, Glucose Level 98, Calcium Level 8.2L Microbiology 11/19/17 MRSA Screen - Final, Complete MRSA not isolated 11/19/17 Urine Culture - Final, Complete Escherichia Coli Assessment/Plan Assessment/Plan Assess & Plan/Chief Complaint Left hip fracture - post op day #2 - with intramedullary nailing fo intertrochanteric comminuted fracture - continue with plans for patient to go to [facility] on discharge for rehabilitation as she is not a good candidate for inpatient rehab. Hypokalemia - resolved with fluids - monitor symptoms. HTN - resume home medications. Chronic diarrhea - pt reports that her slippery elm and other herbal supplements have helped - I have asked pt to bring these from home so that we can decide which herbs can be continued. Clinical Quality Measures DVT/VTE Risk/Contraindication: Risk Factor Score Per Nursin RFS Level Per Nursing on Admit: 4+=Very High Contraindications-Pharm: Other *list below* Other: surgery today MOMO WU MD Nov 22, 2017 09:23
[2017-11-22] MEDS: ENOXAPARIN 40 MG/0.4 ML (LOVENOX) SYR SC SCH (09:49)
[2017-11-22] MEDS: SENNA W/DOCUSATE (SENOKOT S) TABLET PO SCH ×2 (09:49→21:28)
[2017-11-22] MEDS: ASPIRIN E.C. 81 MG (ECOTRIN) TAB PO SCH (09:49)
[2017-11-22] MEDS: amLODIPine 5 MG (NORVASC) TAB PO SCH (09:49)
--- NOTE | 2017-11-22 09:54 | Physical Therapy Daily Note ---
PT Daily Note-Current Subjective Patient agrees to PT. Dr. [place] reports she will dismiss to [facility] this week. Pain Numeric Pain Scale: 8 Location: Left Location Body Site: Hip Pain Description: Acute Mental Status Patient Orientation: Normal For Age Transfers Functional [place] Measure 0=Not Assessed/NA 4=Minimal Assistance 1=Total Assistance 5=Supervision or Setup 2=Maximal Assistance 6=Modified [place] 3=Moderate Assistance 7=Complete IndependenceIRFPAI Quality Coding Scale 6 Independent with activity with or without an assistive device 5 Patient requires set up or clean up by helper. Patient completes activity by themselves 4 Supervision or touching assist (CGA). [place] provide cues , steadying assist 3 The helper provides less than half the effort to complete the activity 2 The helper provides more than half the effort to complete the activity 1 Dependent. The helper does all the effort to complete an activity 7 Patient refused to complete or attempt activity 9 The patient did not perform the activity before the current illness or injury 88 Not attempted due to Medical conditions or safety concerns Transfers (B, C, W/C) (FIM): 4 Scootin Rollin Supine to/from Sit: 4 Sit to/from Stand: 4 Weight Bearing Right Lower Extremity: Right Full Weight Bearing Left Lower Extremity: Left Touch Toe Bearing Gait Training Gait (FIM): 1 Distance (FIM): 1=up to 49 ft Distance: 25' Gait Level of Assist: 4 Gait Persons Needed: 1 Gait Assistive Device: FWW able to maintain TTWB left LE Exercises Supine Ex: Ankle pumps, Quad Set, Heel Slides Supine Reps: 10 Seated Therapy Exercises: Ankle pumps, Long arc quads Seated Reps: 10 Assessment Patient much improved with gross motor skills. Patient is up in recliner with needs met. PT Short Term Goals Short Term Goals Time Frame: Dec 05, 2017 Transfers (B,C,W/C) (FIM): 6 Gait (FIM): 5 Distance (FIM): 3=150 ft Gait Distance Comment: at least 200ft with FWW Gait Level of Assist: 5 Gait Assistive Device: FWW Stairs (FIM): 2 # of Steps: 1 Stairs Level of Assist: 2 PT Director Of Market Intelligence Goals Intermediate Goals PT Intermediate Goals Time Frame: Dec 19, 2017 Transfers (B,C,W/C) (FIM): 6 Gait (FIM): 6 Gait distance (FIM): 3=150 ft Distance: 250ft Gait Level of Assist: 6 Gait Assistive Device: FWW Stairs (FIM): 2 # of Steps: 4 Stairs Level Of Assist: 6 PT Plan Treatment/Plan Treatment Plan: Continue Plan of Care Treatment Plan: Bed Mobility, Education, Functional Activity Jessika, Functional Strength, Gait, Safety, Therapeutic Exercise, Transfers Treatment Duration: Dec 19, 2017 Frequency: 11 times per week Estimated Hrs Per Day: .5 hour per day Patient and/or Family Agrees t: Yes Discharge Recommendations Therapy D/C Recommendations: Residential Placement, Alf (TCU/NH) Time/GCodes Time In: 848 Time Out: 911 Total Billed Treatment Time: 23 Total Billed Treatment 1 visit GT 15 min EX 8 min REYMUNDO ODONNELL PT Nov 22, 2017 09:54
--- NOTE | 2017-11-22 10:55 | Progress Note (SOAP) ---
Subjective Date Seen by Provider: Nov 22, 2017 Time Seen by Provider: 10:45 Subjective/Events-last exam Awake and alert Hoping for transfer to inpatient rehab or skilled Review of Systems General: Chills, Night Sweats, Fatigue, Malaise, Appetite, Other Mild left hip pain Objective Exam Vital Signs Date Time Temp Pulse Resp B/P (MAP) Pulse Ox O2 Delivery O2 Flow Rate FiO2 11/22/17 00:00 98.0 87 18 145/64 (91) 92 Nasal Cannula 2.00 2.00 11/21/17 21:00 Nasal Cannula 1.50 11/21/17 15:28 98.7 88 24 149/66 (93) 91 Nasal Cannula 2.00 2.00 11/21/17 12:00 98.8 89 20 125/60 (81) 92 Nasal Cannula 2.00 2.00 I & O 11/22/17 07:00 Intake Total 4040 ml Output Total 3475 ml Balance 565 ml Capillary Refill : Less Than 3 SecondsLess Than 3 Seconds General Appearance: No Apparent Distress HEENT: PERRL/EOMI Neck: Full Range of Motion Respiratory: Lungs Clear Cardiovascular: Regular Rate, Rhythm Peripheral Pulses: 2+ Left Dors-Pedis (L) Gastrointestinal: non tender Extremity: No Calf Tenderness Neurologic/Psychiatric: Oriented x3 Skin: Warm/Dry Lymphatic: No Adenopathy Other comments Dressing dry left hip Results Lab Laboratory Tests 11/22/17 06:12: White Blood Count 9.6, Red Blood Count 4.02L, Hemoglobin 10.9L, Hematocrit 33L, Mean Corpuscular Volume 82, Mean Corpuscular Hemoglobin 27, Mean Corpuscular Hemoglobin Concent 33, Red Cell Distribution Width 15.3H, Platelet Count 185, Mean Platelet Volume 9.9, Sodium Level 133L, Potassium Level 4.3, Chloride Level 97L, Carbon Dioxide Level 29, Anion Gap 7, Blood Urea Nitrogen 8, Creatinine 0.69, Estimat Glomerular Filtration Rate > 60, BUN/Creatinine Ratio 12, Glucose Level 98, Calcium Level 8.2L Microbiology 11/19/17 MRSA Screen - Final, Complete MRSA not isolated 11/19/17 Urine Culture - Final, Complete Escherichia Coli Procedures Intramedullary nailing left hip Assessment/Plan Assessment/Plan Assess & Plan/Chief Complaint Status post IM nailing intertrochanteric subtrochanteric fracture left hip Final Diagnosis Displaced intertrochanteric subtrochanteric fracture left hip Clinical Quality Measures DVT/VTE Risk/Contraindication: Risk Factor Score Per Nursin RFS Level Per Nursing on Admit: 4+=Very High Contraindications-Pharm: Other *list below* Other: surgery today DEAN MCLEOD DO Nov 22, 2017 10:55 am
[2017-11-22 12:00] VITALS: BP 154/68
--- NOTE | 2017-11-22 12:47 | Occupational Therapy Eval ---
OT Evaluation-General/PLF Medical Diagnosis Admission Date Nov 19, 2017 at 14:00 Medical Diagnosis: (L) hip fx; IM nail Onset Date: Nov 19, 2017 Therapy Diagnosis Therapy Diagnosis: decreased self care skills Height/Weight Height (Feet): 5 Height (Inches): 2.00 Weight (Pounds): 150 Weight (Ounces): 0.0 Precautions Precautions/Isolations: Fall Prevention, Standard Precautions Safety Interventions: None Referral Physician: Jesse Kessler DO Medical History Pertinent Medical History: HTN, Parkinson's Additional Medical History valvular heart disease, arthritis, PVD, aortic stenosis Reviewed History: Yes Social History Home: Single Level Current Living Status: Alone Entry Into Home: Level Entry Pt states son lives a few apartments down from her ADL-Prior Level of Function ADL PLOF Comments Pt reports being independent with self care and mobility. Does not use any assistive devices for mobility. Pt does her own housework and drives. DME/Equipment: Bath Chair, Grab Bars, Shower, Toilet/[address] Self: Yes OT Current Status Subjective Pt in bed agrees to treatment. Pt reports no pain at rest, but pain in left hip with movement (not rated) Mental Status/Objective Patient Orientation: Person, Place, Situation Current Glasses/Contacts: Yes Hearing Aids: No Dentures/Partials: Yes Hand Dominance: Right Upper Extremity ROM Grossly WFL Upper Extremity Coordination Intact ADL-Treatment ADL-Current Pt reports fatigue, but agrees to sit EOB. Pt states she has already walked with PT and taken a shower/completed ADLs with assist from nursing this morning. Supine to sit with assist for left LE. Pt sat EOB with good balance during UE assessment. Pt sit to stand with minimal assistance. Pt able to take sidesteps to HOB with minimal assistance using FWW. Able to maintain TTWB left LE. Sit to supine with assist for left LE. Pt in bed with needs met after session. Functional [place] Measure 0=Not Assessed/NA 4=Minimal Assistance 1=Total Assistance 5=Supervision or Setup 2=Maximal Assistance 6=Modified [place] 3=Moderate Assistance 7=Complete IndependenceIRFPAI Quality Coding Scale 6 Independent with activity with or without an assistive device 5 Patient requires set up or clean up by helper. Patient completes activity by themselves 4 Supervision or touching assist (CGA). [place] provide cues , steadying assist 3 The helper provides less than half the effort to complete the activity 2 The helper provides more than half the effort to complete the activity 1 Dependent. The helper does all the effort to complete an activity 7 Patient refused to complete or attempt activity 9 The patient did not perform the activity before the current illness or injury 88 Not attempted due to Medical conditions or safety concerns OT Short Term Goals Short Term Goals 1=Demonstrate adherence to instructed precautions during ADL tasks. 2=Patient will verbalize/demonstrate understanding of assistive devices/ modifications for ADL. 3=Patient will improve strength/tolerance for activity to enable patient to perform ADL's. OT Retirement Goals Retirement Goals Time Frame: Dec 06, 2017 Bathing(FIM): 5 Upper Body Dressing(FIM): 5 Lower Body Dressing(FIM): 5 Toileting(FIM): 5 Toilet/Commode Transfer(FIM): 5 Additional Goals: 1-Demonstrate ADL Tasks, 2-Verbalize Understanding, 3- ImproveStrength/Jessika 1=Demonstrate adherence to instructed precautions during ADL tasks. 2=Patient will verbalize/demonstrate understanding of assistive devices/ modifications for ADL. 3=Patient will improve strength/tolerance for activity to enable patient to perform ADL's. OT Education/Plan Problem List/Assessment Assessment: Decreased Activ Tolerance, Decreased UE Strength, Dependent Transfers, Impaired Self-Care Skills Pt to benefit from skilled OT intervention for ADL training, transfers, strengthening, and home safety education to maximize level of function and allow safe discharge plan. Discharge Recommendations Plan/Recommendations: Continue POC Treatment Plan/Plan of Care Treatment,Training & Education: Yes Patient would benefit from OT for education, treatment and training to promote independence in ADL's, mobility, safety and/or upper extremity function for ADL' s. Plan of Care: ADL Retraining, Functional Mobility, UE Funct Exercise/Act Treatment Duration: Dec 06, 2017 Frequency: 5 times per week Estimated Hrs Per Day: .25 hour per day Agreement: Yes Rehab Potential: Good Time/GCodes Start Time: 11:21 Stop Time: 11:39 Total Time Billed (hr/min): 18 Billed Treatment Time 1 visit, EVRaj(18minutes) BRANDIE CHAMBERLAIN OT Nov 22, 2017 12:47
--- NOTE | 2017-11-22 13:39 | Physical Therapy Daily Note ---
PT Daily Note-Current Subjective Patient reports she is going to inpatient rehab tomorrow vs. longterm facility. Patient is TTWB left LE x 6-8 wks. Pain Numeric Pain Scale: 8 Location: Left Location Body Site: Hip Pain Description: Acute Mental Status Patient Orientation: Normal For Age Transfers Functional [place] Measure 0=Not Assessed/NA 4=Minimal Assistance 1=Total Assistance 5=Supervision or Setup 2=Maximal Assistance 6=Modified [place] 3=Moderate Assistance 7=Complete IndependenceIRFPAI Quality Coding Scale 6 Independent with activity with or without an assistive device 5 Patient requires set up or clean up by helper. Patient completes activity by themselves 4 Supervision or touching assist (CGA). [place] provide cues , steadying assist 3 The helper provides less than half the effort to complete the activity 2 The helper provides more than half the effort to complete the activity 1 Dependent. The helper does all the effort to complete an activity 7 Patient refused to complete or attempt activity 9 The patient did not perform the activity before the current illness or injury 88 Not attempted due to Medical conditions or safety concerns Transfers (B, C, W/C) (FIM): 4 Scootin Rollin Supine to/from Sit: 4 Sit to/from Stand: 4 Weight Bearing Right Lower Extremity: Right Full Weight Bearing Left Lower Extremity: Left Touch Toe Bearing x 6-8 wks Gait Training Gait (FIM): 2 Distance (FIM): 6=810-00 ft Distance: 75' Gait Level of Assist: 4 Gait Persons Needed: 1 Gait Assistive Device: FWW CGA with slow, antalgic gait sequence Exercises Supine Ex: Ankle pumps, Heel Slides, Short Arc Quads Supine Reps: 10 Seated Therapy Exercises: Ankle pumps, Long arc quads, Hip flexion Seated Reps: 10 Assessment Patient is up in recliner with needs met. Patient tolerated treatment well. PT Short Term Goals Short Term Goals Time Frame: Dec 05, 2017 Gait (FIM): 5 Distance (FIM): 3=150 ft Gait Distance Comment: at least 200ft with FWW Gait Level of Assist: 5 Gait Assistive Device: FWW Stairs (FIM): 2 # of Steps: 1 Stairs Level of Assist: 2 PT Halfway Goals Halfway Goals PT Astronautical Engineer Goals Time Frame: Dec 19, 2017 Transfers (B,C,W/C) (FIM): 6 Gait (FIM): 6 Gait distance (FIM): 3=150 ft Distance: 250ft Gait Level of Assist: 6 Gait Assistive Device: FWW Stairs (FIM): 2 # of Steps: 4 Stairs Level Of Assist: 6 PT Plan Treatment/Plan Treatment Plan: Continue Plan of Care Treatment Plan: Bed Mobility, Education, Functional Activity Jessika, Functional Strength, Gait, Safety, Therapeutic Exercise, Transfers Treatment Duration: Dec 19, 2017 Frequency: 11 times per week Estimated Hrs Per Day: .5 hour per day Patient and/or Family Agrees t: Yes Time/GCodes Time In: 1300 Time Out: 1323 Total Billed Treatment Time: 23 Total Billed Treatment 1 visit GT 13 min EX 10 min REYMUNDO ODONNELL PT Nov 22, 2017 13:39
[2017-11-22 16:59] VITALS: BP 173/72
[2017-11-23 00:25] VITALS: BP 163/71
[2017-11-23] MEDS: HYDROcodone/APAP 10 MG/325 MG (LORTAB) TAB PO PRN ×2 (01:32→05:54)
[2017-11-23] MEDS: NITROFURANTOIN 50 MG (MACRODANTIN) CAP PO SCH ×3 (05:16→18:27)
[2017-11-23 06:46] LABS: HEMOGLOBIN 10.5 G/DL (11.5-16.0)
[2017-11-23 08:00] VITALS: BP 161/70
--- NOTE | 2017-11-23 08:34 | Discharge Summary ---
Diagnosis/Chief Complaint Date of Admission Nov 19, 2017 at 14:00 Date of Discharge Discharge Date: Nov 24, 2017 Discharge Time: 11:00 Admission Diagnosis Admission Diagnosis A: comminuted displaced intertrochanteric/subtrochanteric left hip fracture, fall, hypokalemia (resolved) P: intramedullary nailing left hip, admit to hospital post op, plan to DC to group home next week, likely or Wed. Discharge Diagnosis Left hip fracture Hypokalemia HTN Chronic diarrhea Reason Hospital Visit this is an 82-year-old white female who previously had been well when she was walking down the stairs at a friend's house grabbed the railing and it was loose and she fell striking her left hip. Ex-rays confirm a comminuted intertrochanteric hip fracture. The patient has been seen by Dr. Kessler already and is scheduled for surgery today. the patient denies having had any recent chest pain change in her respiratory status or syncopal spells. She does have a history of moderate aortic stenosis (calculated valve area of 1.1 cm) but denies having had any symptoms associated with that.potassium was low at 3.1 on admission and this is been corrected to 4.2 this morning. She has been on hydrochlorothiazide. Discharge Summary Consultations dr kessler Discharge Physical Examination Allergies: Coded Allergies: No Known Drug Allergies (Unverified , 12/31/10) Vitals & I&Os Vital Signs Date Time Temp Pulse Resp B/P (MAP) Pulse Ox O2 Delivery O2 Flow Rate FiO2 11/24/17 08:00 98.4 86 20 143/63 (89) 95 Room Air 11/23/17 00:25 2.00 2.00 General Appearance: Alert, Oriented X3, No Acute Distress HEENT: Atraumatic, PERRLA Respiratory: Clear to Auscultation Cardiovascular: Regular Rate Abdominal: Normal Bowel Sounds, Soft, No Tenderness Extremities: No Clubbing, No Cyanosis, Normal Pulses, Other (tenderness left hip, severe shortening and external rotation of left leg) Skin: No Rashes, No Breakdown, No Significant Lesion Neuro: Normal Tone, Sensation Intact, Reflexes 2+ Psych/Mental Status: Mental Status NL Hospital Course Left hip fracture - with intramedullary nailing of intertrochanteric comminuted fracture - continue with plans for patient to go to longterm on discharge for rehabilitation as she is not a good candidate for inpatient rehab. Hypokalemia - resolved with fluids - monitor symptoms. HTN - resumed home medications. Chronic diarrhea - pt reports that her slippery elm and other herbal supplements have helped - I have asked pt to bring these from home so that we can decide which herbs can be continued. discharge to longterm today Pending Labs Discharge Condition at discharge improved Instructions to patient/family Please see electronic discharge instructions given to patient. Discharge Medications Reviewed and agree with Discharge Medication list on patient's Discharge Instruction sheet Clinical Quality Measures DVT/VTE Risk/Contraindication: Risk Factor Score Per Nursin RFS Level Per Nursing on Admit: 4+=Very High Contraindications-Pharm: Other *list below* Other: surgery today MOMO WU MD Nov 23, 2017 08:34
[2017-11-23] MEDS ORDERED: HYDR-3820 PO (08:37)
[2017-11-23] MEDS ORDERED: SENN-20 PO (08:37)
[2017-11-23] MEDS ORDERED: NITR50CA PO (08:37)
[2017-11-23] MEDS: ASPIRIN E.C. 81 MG (ECOTRIN) TAB PO SCH (09:54)
[2017-11-23] MEDS: SENNA W/DOCUSATE (SENOKOT S) TABLET PO SCH ×2 (09:55→21:15)
[2017-11-23] MEDS: ENOXAPARIN 40 MG/0.4 ML (LOVENOX) SYR SC SCH (09:55)
[2017-11-23] MEDS: amLODIPine 5 MG (NORVASC) TAB PO SCH (09:55)
--- NOTE | 2017-11-23 11:05 | Physical Therapy Daily Note ---
PT Daily Note-Current Subjective Patient is very agreeable to participate with PT. Pain Numeric Pain Scale: 8 Location: Left Location Body Site: Hip Pain Description: Acute Mental Status Patient Orientation: Normal For Age Transfers Functional [place] Measure 0=Not Assessed/NA 4=Minimal Assistance 1=Total Assistance 5=Supervision or Setup 2=Maximal Assistance 6=Modified [place] 3=Moderate Assistance 7=Complete IndependenceIRFPAI Quality Coding Scale 6 Independent with activity with or without an assistive device 5 Patient requires set up or clean up by helper. Patient completes activity by themselves 4 Supervision or touching assist (CGA). [place] provide cues , steadying assist 3 The helper provides less than half the effort to complete the activity 2 The helper provides more than half the effort to complete the activity 1 Dependent. The helper does all the effort to complete an activity 7 Patient refused to complete or attempt activity 9 The patient did not perform the activity before the current illness or injury 88 Not attempted due to Medical conditions or safety concerns Transfers (B, C, W/C) (FIM): 4 Scootin Rollin Supine to/from Sit: 4 Sit to/from Stand: 4 Weight Bearing Right Lower Extremity: Right Full Weight Bearing Left Lower Extremity: Left Touch Toe Bearing x 6-8 wks Gait Training Gait (FIM): 2 Distance (FIM): 5=511-39 ft Distance: 75' Gait Level of Assist: 4 Gait Persons Needed: 1 Gait Assistive Device: FWW Patient is able to maintain TTWB left LE, however, limits distance due to fatigue. Exercises Supine Ex: Ankle pumps, Quad Set, Heel Slides, Straight leg raise, Hip abd/add Supine Reps: 15 (2 sets AAROM left LE with SLR (lifting 2-3" only to clear bed for transfers)) Seated Therapy Exercises: Long arc quads Seated Reps: 15 Assessment Patient tolerated treatment well and returned to bed with needs met. Patient does demonstrate ability to comply with TTWB left LE and will be so for 6-8 wks. PT Short Term Goals Short Term Goals Time Frame: Dec 05, 2017 Gait (FIM): 5 Distance (FIM): 3=150 ft Gait Distance Comment: at least 200ft with FWW Gait Level of Assist: 5 Gait Assistive Device: FWW Stairs (FIM): 2 # of Steps: 1 Stairs Level of Assist: 2 PT Longterm Goals Longterm Goals PT Longterm Goals Time Frame: Dec 19, 2017 Transfers (B,C,W/C) (FIM): 6 Gait (FIM): 6 Gait distance (FIM): 3=150 ft Distance: 250ft Gait Level of Assist: 6 Gait Assistive Device: FWW Stairs (FIM): 2 # of Steps: 4 Stairs Level Of Assist: 6 PT Plan Treatment/Plan Treatment Plan: Continue Plan of Care Treatment Plan: Bed Mobility, Education, Functional Activity Jessika, Functional Strength, Gait, Safety, Therapeutic Exercise, Transfers Treatment Duration: Dec 19, 2017 Frequency: 11 times per week Estimated Hrs Per Day: .5 hour per day Patient and/or Family Agrees t: Yes Time/GCodes Time In: 1030 Time Out: 1054 Total Billed Treatment Time: 24 Total Billed Treatment 1 visit EX 13 min GT 11 min REYMUNDO ODONNELL PT Nov 23, 2017 11:05
--- NOTE | 2017-11-23 14:07 | Occupational Ther Daily Note ---
OT Current Status-Daily Note Subjective Pt on BSC when therapist enters. Pt agrees to treatment, asks if she will be going to ARU today. Mental Status/Objective Functional [place] Measure 0=Not Assessed/NA 4=Minimal Assistance 1=Total Assistance 5=Supervision or Setup 2=Maximal Assistance 6=Modified [place] 3=Moderate Assistance 7=Complete [place] ADL-Treatment Pt sit to stand from BSC with minimal assistance. Assist to manage clothing. Gait to chair with FWW, able to maintain TTWB with cues. Education provided regarding use of adaptive equipment for LE dressing. Pt doffed socks with SBA using dressing stick. Pt able to don socks with minimal assistance using sock aid. Verbal cues for use of adaptive equipment. Discussed technique for donning pants using adaptive equipment. Pt states understanding of all education. Pt sitting in chair with needs met and daughter present after session. OT Short Term Goals Short Term Goals 1=Demonstrate adherence to instructed precautions during ADL tasks. 2=Patient will verbalize/demonstrate understanding of assistive devices/ modifications for ADL. 3=Patient will improve strength/tolerance for activity to enable patient to perform ADL's. OT Pedigree Tracer Goals Pedigree Tracer Goals Time Frame: Dec 06, 2017 Bathing(FIM): 5 Upper Body Dressing(FIM): 5 Lower Body Dressing(FIM): 5 Toileting(FIM): 5 Toilet/Commode Transfer(FIM): 5 Additional Goals: 1-Demonstrate ADL Tasks, 2-Verbalize Understanding, 3- ImproveStrength/Jessika 1=Demonstrate adherence to instructed precautions during ADL tasks. 2=Patient will verbalize/demonstrate understanding of assistive devices/ modifications for ADL. 3=Patient will improve strength/tolerance for activity to enable patient to perform ADL's. OT Education/Plan Problem List/Assessment Pt to benefit from skilled OT intervention for ADL training, transfers, strengthening, and home safety education to maximize level of function and allow safe discharge plan. Discharge Recommendations Plan/Recommendations: Continue POC Treatment Plan/Plan of Care Patient would benefit from OT for education, treatment and training to promote independence in ADL's, mobility, safety and/or upper extremity function for ADL' s. Plan of Care: ADL Retraining, Functional Mobility, UE Funct Exercise/Act Treatment Duration: Dec 06, 2017 Frequency: 5 times per week Estimated Hrs Per Day: .25 hour per day Agreement: Yes Rehab Potential: Good Time/GCodes Start Time: 13:40 Stop Time: 13:57 Total Time Billed (hr/min): 17 Billed Treatment Time 1 visit, ADL(17minutes) BRANDIE CHAMBERLAIN OT Nov 23, 2017 14:07
--- NOTE | 2017-11-23 14:35 | Physical Therapy Daily Note ---
PT Daily Note-Current Subjective Pt is sitting in chair pre tx and agrees to PT. Pt c/o pain in L hip at 8/10. Pain Numeric Pain Scale: 8 Location: Left Location Body Site: Hip Pain Description: NONE Appearance Pt is sitting on commode post tx and nurse is present. Mental Status Patient Orientation: Normal For Age Transfers Functional [place] Measure 0=Not Assessed/NA 4=Minimal Assistance 1=Total Assistance 5=Supervision or Setup 2=Maximal Assistance 6=Modified [place] 3=Moderate Assistance 7=Complete IndependenceIRFPAI Quality Coding Scale 6 Independent with activity with or without an assistive device 5 Patient requires set up or clean up by helper. Patient completes activity by themselves 4 Supervision or touching assist (CGA). [place] provide cues , steadying assist 3 The helper provides less than half the effort to complete the activity 2 The helper provides more than half the effort to complete the activity 1 Dependent. The helper does all the effort to complete an activity 7 Patient refused to complete or attempt activity 9 The patient did not perform the activity before the current illness or injury 88 Not attempted due to Medical conditions or safety concerns Transfers (B, C, W/C) (FIM): 4 Scootin Sit to/from Stand: 4 Pt requires CGA for sit to stand transfer. Weight Bearing Right Lower Extremity: Right Full Weight Bearing Left Lower Extremity: Left Touch Toe Bearing x 6-8 wks Gait Training Gait (FIM): 2 Distance: 70 feet x1, 30 feet x1 Gait Level of Assist: 4 Gait Persons Needed: 1 Gait Assistive Device: FWW Pt is TTWB on LLE per precautions and she seems to be compliant. Exercises Seated Therapy Exercises: Ankle pumps (20 x1 leonides), Long arc quads (20 x1 leonides), Hip flexion (20 x1 leonides), Hip abd/add (20 x1 leonides) Treatments Pt performed functional activity, gait training, and LE exercises. Assessment Current Status: Good Progress Pt is able to walk 70 feet until needing a sitting break to drink water. Pt requires CGA for sit to stand transfer and ambulation. Pt follows precautions without needing verbal cues. PT Short Term Goals Short Term Goals Time Frame: Dec 05, 2017 Gait (FIM): 5 Distance (FIM): 3=150 ft Gait Distance Comment: at least 200ft with FWW Gait Level of Assist: 5 Gait Assistive Device: FWW Stairs (FIM): 2 # of Steps: 1 Stairs Level of Assist: 2 PT Utility Porter Goals Utility Porter Goals PT Long-Term Goals Time Frame: Dec 19, 2017 Transfers (B,C,W/C) (FIM): 6 Gait (FIM): 6 Gait distance (FIM): 3=150 ft Distance: 250ft Gait Level of Assist: 6 Gait Assistive Device: FWW Stairs (FIM): 2 # of Steps: 4 Stairs Level Of Assist: 6 PT Plan Problem List Problem List: Activity Tolerance, Functional Strength, Safety, Balance, Gait, Transfer, Bed Mobility, ROM Treatment/Plan Treatment Plan: Continue Plan of Care Treatment Plan: Bed Mobility, Education, Functional Activity Jessika, Functional Strength, Gait, Safety, Therapeutic Exercise, Transfers Treatment Duration: Dec 19, 2017 Frequency: 11 times per week Estimated Hrs Per Day: .5 hour per day Patient and/or Family Agrees t: Yes Safety Risks/Education Patient Education: Gait Training, Transfer Techniques, Correct Positioning, Safety Issues Teaching Recipient: Patient Teaching Methods: Demonstration, Discussion Response to Teaching: Verbalize Understanding, Return Demonstration Time/GCodes Time In: 1400 Time Out: 1425 Total Billed Treatment Time: 25 Total Billed Treatment 1 visit 10 min EX 15 min GT ZEKE CRAWLEY PT Nov 23, 2017 14:35
[2017-11-23 15:24] VITALS: BP 131/62
[2017-11-23] MEDS ORDERED: BISACODYL 5 MG (DULCOLAX) TABLET PO NR (19:00)
[2017-11-23] MEDS ORDERED: METHYLNALTREXONE 12 MG/0.6 ML (RELISTOR) VIAL SQ NR (20:00)
[2017-11-24 00:07] VITALS: BP 161/77
[2017-11-24] MEDS: NITROFURANTOIN 50 MG (MACRODANTIN) CAP PO SCH ×4 (00:19→19:08)
[2017-11-24] MEDS: HYDROcodone/APAP 10 MG/325 MG (LORTAB) TAB PO PRN ×2 (05:27→12:37)
[2017-11-24 08:00] VITALS: BP 143/63
--- NOTE | 2017-11-24 09:32 | Discharge Inst-Skilled Nursing ---
Discharge Inst-Skilled NF Patient Instructions Patient Problems: left hip fracture - post-hip pinning hypertension chronic abdominal pain constipation Goal: home with home health Patient Instructions: follow up with [facility] in 1 week from discharge Consult/Follow Up/Orders Skilled NF Admit to: [facility] Certification ([facility]) I certify that SNF services are required to be given on an inpatient basis because of the above named patient's need for senior living care on a continuing basis for the conditions(s) for which he/she was receiving inpatient hospital services prior to his/her transfer to the SNF. [facility] Facility Order: Nursing Services, Freight Weigher-Evaluate & Treat, Physical Therapy-Evaluate & Treat Discharge Diet: Regular Diet Daily Activity as Tolerated: Yes (toe touch weight bearing only on left) New & Resume Previous Orders Momo Carolina Nov 24, 2017 09:30 Medication List: Active Scripts Active Senna-Time S Tablet (Sennosides/Docusate Sodium) 1 Each Tablet 1 Ea PO BID Hydrocodon-Acetaminophn 10-325 (Hydrocodone/Acetaminophen) 1 Each Tablet 1 Ea PO Q4H PRN Nitrofurantoin (Nitrofurantoin Macrocrystal) 50 Mg Capsule 50 Mg PO Q6HR Reported Metoprolol Succinate 25 Mg Tab.er.24h 25 Mg PO DAILY [Proactazyme] 1 Cap PO TID Lutein 20 Mg Tablet 20 Mg PO BID Probiotic (L.acidoph & Paracasei,B.lactis) 1 Each Capsule 1 Cap PO BID Black Elderberry 575 mg Cap (Elderberry Fruit and Flower) 1 Each Capsule 1 Cap PO BID [Slippery Elm] 1 Cap PO TID Daily Multiple Vitamin (Multivitamin) 1 Each Tablet 0.5 Tab PO BID Vitamin D-3 (Cholecalciferol (Vitamin D3)) 2,000 Unit Capsule 2,000 Unit PO 1200 Fish Oil 1,000 mg Capsule ([place] 3 Polyunsat Fatty Acids) 1,000 Mg Cap 1,000 Mg PO TID Aspirin EC (Aspirin) 81 Mg Tablet.dr 81 Mg PO DAILY Hydrochlorothiazide 25 Mg Tablet 25 Mg PO DAILY Amlodipine Besylate 5 Mg Tablet 5 Mg PO DAILY My orders: Orders - MOMO CAROLINA MD Bisacodyl Tablet (Dulcolax Tablet) (11/23/17 19:00) Methylnaltrexone Injection (Relistor Inj (11/23/17 20:00) MOMO CAROLINA MD Nov 24, 2017 09:32
[2017-11-24] MEDS: ASPIRIN E.C. 81 MG (ECOTRIN) TAB PO SCH (09:46)
[2017-11-24] MEDS: SENNA W/DOCUSATE (SENOKOT S) TABLET PO SCH ×2 (09:46→20:16)
[2017-11-24] MEDS: amLODIPine 5 MG (NORVASC) TAB PO SCH (09:46)
--- NOTE | 2017-11-24 11:21 | Physical Therapy Daily Note ---
PT Daily Note-Current Subjective Pt laying Supine in bed upon arrival. Pt reports getting back into bed from sitting up in recliner for 1-1 1/2 hrs. & feels tired. Pt agrees to Supine Ex for tx. Pain Location: No Pain Reported Mental Status Patient Orientation: Person, Place, Situation Transfers Functional [place] Measure 0=Not Assessed/NA 4=Minimal Assistance 1=Total Assistance 5=Supervision or Setup 2=Maximal Assistance 6=Modified [place] 3=Moderate Assistance 7=Complete IndependenceIRFPAI Quality Coding Scale 6 Independent with activity with or without an assistive device 5 Patient requires set up or clean up by helper. Patient completes activity by themselves 4 Supervision or touching assist (CGA). [place] provide cues , steadying assist 3 The helper provides less than half the effort to complete the activity 2 The helper provides more than half the effort to complete the activity 1 Dependent. The helper does all the effort to complete an activity 7 Patient refused to complete or attempt activity 9 The patient did not perform the activity before the current illness or injury 88 Not attempted due to Medical conditions or safety concerns Scootin Rollin Supine to/from Sit: 5 Sit to/from Stand: 5 Weight Bearing Right Lower Extremity: Right Full Weight Bearing Left Lower Extremity: Left Touch Toe Bearing x 6-8 wks Gait Training Distance (FIM): 1=up to 49 ft Distance: 20' Gait Level of Assist: 5 Gait Persons Needed: 1 Gait Assistive Device: FWW Pt does good job of keeping WB status with transfers and ambulation. Exercises Supine Ex: Ankle pumps, Quad Set, Glut sets, Heel Slides, Straight leg raise, Hip abd/add Supine Reps: 15 (10 reps for LLE, sometimes AAROM) Treatments Pt completes Supine Ex in bed with a couple of rest breaks. AAROM for LLE at times due to weakness, AROM for RLE. Pt transfers from Supine to EOB to standing using FWW at SBA. Pt uses restroom then returns to bed to rest. Pt transfers off toilet at CGA-Min A due to low toilet. Pt resting Supine with all needs met at end of tx. Assessment Current Status: Good Progress Pt is improving with strength, independence and safety of tasks especially with keeping WB status. Pt to discharge to SNF maybe this afternoon. PT Short Term Goals Short Term Goals Time Frame: Dec 05, 2017 Gait (FIM): 5 Distance (FIM): 3=150 ft Gait Distance Comment: at least 200ft with FWW Gait Level of Assist: 5 Gait Assistive Device: FWW Stairs (FIM): 2 # of Steps: 1 Stairs Level of Assist: 2 PT Tile Mechanic Helper Goals Senior Care Goals PT Tile Mechanic Helper Goals Time Frame: Dec 19, 2017 Transfers (B,C,W/C) (FIM): 6 Gait (FIM): 6 Gait distance (FIM): 3=150 ft Distance: 250ft Gait Level of Assist: 6 Gait Assistive Device: FWW Stairs (FIM): 2 # of Steps: 4 Stairs Level Of Assist: 6 PT Plan Problem List Problem List: Activity Tolerance, Functional Strength, Balance, Gait Treatment/Plan Treatment Plan: Continue Plan of Care Treatment Plan: Bed Mobility, Education, Functional Activity Jessika, Functional Strength, Gait, Safety, Therapeutic Exercise, Transfers Treatment Duration: Dec 19, 2017 Frequency: 11 times per week Estimated Hrs Per Day: .5 hour per day Patient and/or Family Agrees t: Yes Safety Risks/Education Patient Education: Gait Training, Transfer Techniques, Correct Positioning, Safety Issues Teaching Recipient: Patient Teaching Methods: Discussion Response to Teaching: Verbalize Understanding Time/GCodes Time In: 1015 Time Out: 1050 Total Billed Treatment Time: 35 Total Billed Treatment 1, EX (20m) & FA (15m) ИВАН FERNANDES PTA Nov 24, 2017 11:21
--- NOTE | 2017-11-24 12:01 | Occupational Ther Daily Note ---
OT Current Status-Daily Note Subjective Pt in bed, agrees to therapy. Pt states she is tired today. Hopes to be discharged to SNF today. Mental Status/Objective Functional [place] Measure 0=Not Assessed/NA 4=Minimal Assistance 1=Total Assistance 5=Supervision or Setup 2=Maximal Assistance 6=Modified [place] 3=Moderate Assistance 7=Complete [place] ADL-Treatment Pt states she has been incontinent and would like to get up to restroom. Supine to sit with supervision. Sit to stand with CGA. Gait to restroom with FWW, able to maintain TTWB. Transfer to toilet with CGA. Pt doffed underwear with minimal assistance to get over feet. Pt able to perform toileting hygiene with SBA. Assist to don brief. Sit to stand from toilet with minimal assistance. Stood at sink to wash hands and face with supervision. Pt requests to return to bed secondary to fatigue. Sit to supine with SBA. Pt resting in bed with needs met after session. Toileting (FIM): 3 Toilet/Commode Transfer (FIM): 4 OT Short Term Goals Short Term Goals 1=Demonstrate adherence to instructed precautions during ADL tasks. 2=Patient will verbalize/demonstrate understanding of assistive devices/ modifications for ADL. 3=Patient will improve strength/tolerance for activity to enable patient to perform ADL's. OT Retirement Goals Cashier Credit Goals Time Frame: Dec 06, 2017 Bathing(FIM): 5 Upper Body Dressing(FIM): 5 Lower Body Dressing(FIM): 5 Toileting(FIM): 5 Toilet/Commode Transfer(FIM): 5 Additional Goals: 1-Demonstrate ADL Tasks, 2-Verbalize Understanding, 3- ImproveStrength/Jessika 1=Demonstrate adherence to instructed precautions during ADL tasks. 2=Patient will verbalize/demonstrate understanding of assistive devices/ modifications for ADL. 3=Patient will improve strength/tolerance for activity to enable patient to perform ADL's. OT Education/Plan Problem List/Assessment Pt to benefit from skilled OT intervention for ADL training, transfers, strengthening, and home safety education to maximize level of function and allow safe discharge plan. Discharge Recommendations Plan/Recommendations: Continue POC Treatment Plan/Plan of Care Patient would benefit from OT for education, treatment and training to promote independence in ADL's, mobility, safety and/or upper extremity function for ADL' s. Plan of Care: ADL Retraining, Functional Mobility, UE Funct Exercise/Act Treatment Duration: Dec 06, 2017 Frequency: 5 times per week Estimated Hrs Per Day: .25 hour per day Agreement: Yes Rehab Potential: Good Time/GCodes Start Time: 11:42 Stop Time: 11:55 Total Time Billed (hr/min): 13 Billed Treatment Time 1 visit, ADL(13minutes) BRANDIE CHAMBERLAIN OT Nov 24, 2017 12:01
--- NOTE | 2017-11-24 13:42 | Physical Therapy Daily Note ---
PT Daily Note-Current Subjective Pt laying Supine in bed upon arrival. Pt reports needing to use restroom, feels as though she may have wet through brief. Pt agrees to PT. Pain Location: No Pain Reported Mental Status Patient Orientation: Person, Place, Situation Transfers Functional [place] Measure 0=Not Assessed/NA 4=Minimal Assistance 1=Total Assistance 5=Supervision or Setup 2=Maximal Assistance 6=Modified [place] 3=Moderate Assistance 7=Complete IndependenceIRFPAI Quality Coding Scale 6 Independent with activity with or without an assistive device 5 Patient requires set up or clean up by helper. Patient completes activity by themselves 4 Supervision or touching assist (CGA). [place] provide cues , steadying assist 3 The helper provides less than half the effort to complete the activity 2 The helper provides more than half the effort to complete the activity 1 Dependent. The helper does all the effort to complete an activity 7 Patient refused to complete or attempt activity 9 The patient did not perform the activity before the current illness or injury 88 Not attempted due to Medical conditions or safety concerns Scootin Supine to/from Sit: 5 Sit to/from Stand: 5 Weight Bearing Right Lower Extremity: Right Full Weight Bearing Left Lower Extremity: Left Touch Toe Bearing x 6-8 wks Gait Training Distance (FIM): 1=up to 49 ft Distance: 20' Gait Level of Assist: 5 Gait Persons Needed: 1 Gait Assistive Device: FWW Pt has slow vilma and fatigues easy, no LOB. Treatments Pt transfers from Supine to EOB to Standing using FWW at SBA. Pt ambulated to restroom to change brief and use toilet then back to bed to rest. Pt reports just received pain med and will be discharging to SNF this afternoon, confirmed with Nurse. Pt resting Supine in bed at end of tx with all needs met. Assessment Current Status: Good Progress Pt fatigues easy but has improved with independence and safety of tasks and activities. PT Short Term Goals Short Term Goals Time Frame: Dec 05, 2017 Gait (FIM): 5 Distance (FIM): 3=150 ft Gait Distance Comment: at least 200ft with FWW Gait Level of Assist: 5 Gait Assistive Device: FWW Stairs (FIM): 2 # of Steps: 1 Stairs Level of Assist: 2 PT Mining Detail Draftsperson Goals Mining Detail Draftsperson Goals PT Mining Detail Draftsperson Goals Time Frame: Dec 19, 2017 Transfers (B,C,W/C) (FIM): 6 Gait (FIM): 6 Gait distance (FIM): 3=150 ft Distance: 250ft Gait Level of Assist: 6 Gait Assistive Device: FWW Stairs (FIM): 2 # of Steps: 4 Stairs Level Of Assist: 6 PT Plan Problem List Problem List: Activity Tolerance, Functional Strength, Gait Treatment/Plan Treatment Plan: Continue Plan of Care Treatment Plan: Bed Mobility, Education, Functional Activity Jessika, Functional Strength, Gait, Safety, Therapeutic Exercise, Transfers Treatment Duration: Dec 19, 2017 Frequency: 11 times per week Estimated Hrs Per Day: .5 hour per day Patient and/or Family Agrees t: Yes Safety Risks/Education Patient Education: Gait Training, Correct Positioning, Safety Issues Teaching Recipient: Patient Teaching Methods: Discussion Response to Teaching: Verbalize Understanding Time/GCodes Time In: 1310 Time Out: 1325 Total Billed Treatment Time: 15 Total Billed Treatment 1, BETHANY (15m) ИВАН FERNANDES RN HEMATOLOGY Nov 24, 2017 13:41
[2017-11-24 16:33] VITALS: BP 169/80
[2017-11-25] VITALS: BP 172/77
[2017-11-25] MEDS: NITROFURANTOIN 50 MG (MACRODANTIN) CAP PO SCH ×4 (00:25→19:10)
[2017-11-25] MEDS: HYDROcodone/APAP 10 MG/325 MG (LORTAB) TAB PO PRN ×2 (05:35→17:23)
[2017-11-25 08:00] VITALS: BP 162/51
[2017-11-25] MEDS: ASPIRIN E.C. 81 MG (ECOTRIN) TAB PO SCH (08:57)
[2017-11-25] MEDS: amLODIPine 5 MG (NORVASC) TAB PO SCH (08:57)
[2017-11-25] MEDS: SENNA W/DOCUSATE (SENOKOT S) TABLET PO SCH ×2 (08:57→20:40)
[2017-11-25] MEDS: MENTHOL/ZINC OXIDE (CALMOSEPTINE) 113 GM TUBE TOP SCH ×2 (11:16→20:41)
--- NOTE | 2017-11-25 11:25 | Physical Therapy Daily Note ---
PT Daily Note-Current Subjective Patient agrees to PT. c/o 8/10 left hip pain. Pain Numeric Pain Scale: 8 Location: Left Location Body Site: Hip Pain Description: Acute Mental Status Patient Orientation: Normal For Age Transfers Functional [place] Measure 0=Not Assessed/NA 4=Minimal Assistance 1=Total Assistance 5=Supervision or Setup 2=Maximal Assistance 6=Modified [place] 3=Moderate Assistance 7=Complete IndependenceIRFPAI Quality Coding Scale 6 Independent with activity with or without an assistive device 5 Patient requires set up or clean up by helper. Patient completes activity by themselves 4 Supervision or touching assist (CGA). [place] provide cues , steadying assist 3 The helper provides less than half the effort to complete the activity 2 The helper provides more than half the effort to complete the activity 1 Dependent. The helper does all the effort to complete an activity 7 Patient refused to complete or attempt activity 9 The patient did not perform the activity before the current illness or injury 88 Not attempted due to Medical conditions or safety concerns Transfers (B, C, W/C) (FIM): 4 Scootin Rollin Supine to/from Sit: 5 Sit to/from Stand: 5 Weight Bearing Right Lower Extremity: Right Full Weight Bearing Left Lower Extremity: Left Touch Toe Bearing x 6-8 wks Gait Training Gait (FIM): 5 Distance (FIM): 3=150 ft Distance: 200' Gait Level of Assist: 5 Gait Assistive Device: FWW TTWB left LE Exercises Supine Ex: Ankle pumps, Quad Set, Heel Slides Supine Reps: 10 Seated Therapy Exercises: Ankle pumps, Long arc quads Seated Reps: 15 Assessment Current Status: Excellent Progress Patient continues to progress with therapy. PT Short Term Goals Short Term Goals Time Frame: Dec 05, 2017 Gait (FIM): 5 Distance (FIM): 3=150 ft Gait Distance Comment: at least 200ft with FWW Gait Level of Assist: 5 Gait Assistive Device: FWW Stairs (FIM): 2 # of Steps: 1 Stairs Level of Assist: 2 PT Button Cutting Machine Operator Goals Button Cutting Machine Operator Goals PT Button Cutting Machine Operator Goals Time Frame: Dec 19, 2017 Transfers (B,C,W/C) (FIM): 6 Gait (FIM): 6 Gait distance (FIM): 3=150 ft Distance: 250ft Gait Level of Assist: 6 Gait Assistive Device: FWW Stairs (FIM): 2 # of Steps: 4 Stairs Level Of Assist: 6 PT Plan Treatment/Plan Treatment Plan: Continue Plan of Care Treatment Plan: Bed Mobility, Education, Functional Activity Jessika, Functional Strength, Gait, Safety, Therapeutic Exercise, Transfers Treatment Duration: Dec 19, 2017 Frequency: 11 times per week Estimated Hrs Per Day: .5 hour per day Patient and/or Family Agrees t: Yes Time/GCodes Time In: 1020 Time Out: 1043 Total Billed Treatment Time: 23 Total Billed Treatment 1 visit GT 10 min EX 13 min REYMUNDO ODONNELL PT Nov 25, 2017 11:25
--- NOTE | 2017-11-25 14:18 | Occupational Ther Daily Note ---
OT Current Status-Daily Note Subjective No pain reported. Pt. does state that she has been upset at her situation, that she isn't sure "where I am going." Appearance Pt. states that she has already showered. Declines ambulating but agrees to get up to use bathroom. Mental Status/Objective Patient Orientation: Person, Place, Time, Situation Functional [place] Measure 0=Not Assessed/NA 4=Minimal Assistance 1=Total Assistance 5=Supervision or Setup 2=Maximal Assistance 6=Modified [place] 3=Moderate Assistance 7=Complete [place] ADL-Treatment Toileting (FIM): 5 (SBA to toilet self on regular toilet.) Transfers (B, C, W/C) (FIM): 4 (SBA for supine-sit. CGA sit-stand and ambulation. Min assist to transfer sit-supine.) Toilet/Commode Transfer (FIM): 4 Other Treatment Pt. agrees to toilet self. Very little difficulty noted. Pt. does state that she is worried about her situation. States that she is waiting to hear from insurance company. Pt. ambulated back to bed. All needs met back in bed. Education OT Patient Education: Correct positioning, Modified ADL techniques, Progress toward Goal/Update tx plan, Purpose of tx/functional activities, Reviewed precautions, Rehab process, Transfer techniques Teaching Recipient: Patient Teaching Methods: Demonstration, Discussion Response to Teaching: Verbalize Understanding, Return Demonstration OT Short Term Goals Short Term Goals 1=Demonstrate adherence to instructed precautions during ADL tasks. 2=Patient will verbalize/demonstrate understanding of assistive devices/ modifications for ADL. 3=Patient will improve strength/tolerance for activity to enable patient to perform ADL's. 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 2=Patient will verbalize/demonstrate understanding of assistive devices/ modifications for ADL. 3=Patient will improve strength/tolerance for activity to enable patient to perform ADL's. OT Education/Plan Problem List/Assessment Assessment: Decreased Activ Tolerance, Impaired I ADL's, Impaired Self-Care Skills Pt to benefit from skilled OT intervention for ADL training, transfers, strengthening, and home safety education to maximize level of function and allow safe discharge plan. Discharge Recommendations Plan/Recommendations: Continue POC Treatment Plan/Plan of Care Treatment,Training & Education: Yes Patient would benefit from OT for education, treatment and training to promote independence in ADL's, mobility, safety and/or upper extremity function for ADL' s. Plan of Care: ADL Retraining, Functional Mobility, UE Funct Exercise/Act Treatment Duration: Dec 06, 2017 Frequency: 5 times per week Estimated Hrs Per Day: .25 hour per day Agreement: Yes Rehab Potential: Good Time/GCodes Start Time: 13:20 Stop Time: 13:45 Total Time Billed (hr/min): 25 Billed Treatment Time 1, ADL x 2 WILMAN GUERRERO OT Nov 25, 2017 14:18
--- NOTE | 2017-11-25 14:51 | Physical Therapy Daily Note ---
PT Daily Note-Current Subjective Patient agrees to PT. Pain Numeric Pain Scale: 5-Moderate Pain Location: Left Location Body Site: Hip Pain Description: Acute Mental Status Patient Orientation: Normal For Age ( ) Transfers Functional [place] Measure 0=Not Assessed/NA 4=Minimal Assistance 1=Total Assistance 5=Supervision or Setup 2=Maximal Assistance 6=Modified [place] 3=Moderate Assistance 7=Complete IndependenceIRFPAI Quality Coding Scale 6 Independent with activity with or without an assistive device 5 Patient requires set up or clean up by helper. Patient completes activity by themselves 4 Supervision or touching assist (CGA). [place] provide cues , steadying assist 3 The helper provides less than half the effort to complete the activity 2 The helper provides more than half the effort to complete the activity 1 Dependent. The helper does all the effort to complete an activity 7 Patient refused to complete or attempt activity 9 The patient did not perform the activity before the current illness or injury 88 Not attempted due to Medical conditions or safety concerns Transfers (B, C, W/C) (FIM): 5 Scootin Rollin Supine to/from Sit: 5 Sit to/from Stand: 5 Weight Bearing Right Lower Extremity: Right Full Weight Bearing Left Lower Extremity: Left Touch Toe Bearing x 6-8 wks Gait Training Gait (FIM): 2 Distance (FIM): 4=377-11 ft Distance: 100' Gait Level of Assist: 5 Gait Assistive Device: FWW TTWB left LE Exercises Supine Ex: Ankle pumps, Quad Set, Heel Slides (AAROM), Straight leg raise ( AAROM) Assessment Current Status: Excellent Progress Patient is currently at A to [facility] independent [facility] with all gross motor skills. From a PT standpoint, patient would be safe to return to home with home health therapies and family support. She has a handicapped accessible apartment and a son that lives 4 apartments down from her who can cook, clean and do her laundry as reported from patient and family present this p.m. SW notified. PT Short Term Goals Short Term Goals Time Frame: Dec 05, 2017 Gait (FIM): 5 Distance (FIM): 3=150 ft Gait Distance Comment: at least 200ft with FWW Gait Level of Assist: 5 Gait Assistive Device: FWW Stairs (FIM): 2 # of Steps: 1 Stairs Level of Assist: 2 PT Vending Machine Operator Goals Vending Machine Operator Goals PT Vending Machine Operator Goals Time Frame: Dec 19, 2017 Transfers (B,C,W/C) (FIM): 6 Gait (FIM): 6 Gait distance (FIM): 3=150 ft Distance: 250ft Gait Level of Assist: 6 Gait Assistive Device: FWW Stairs (FIM): 2 # of Steps: 4 Stairs Level Of Assist: 6 PT Plan Treatment/Plan Treatment Plan: Continue Plan of Care Treatment Plan: Bed Mobility, Education, Functional Activity Jessika, Functional Strength, Gait, Safety, Therapeutic Exercise, Transfers Treatment Duration: Dec 19, 2017 Frequency: 11 times per week Estimated Hrs Per Day: .5 hour per day Patient and/or Family Agrees t: Yes Time/GCodes Time In: 1415 Time Out: 1430 Total Billed Treatment Time: 15 Total Billed Treatment 1 visit FA 15 min REYMUNDO ODONNELL PT Nov 25, 2017 14:51
[2017-11-25 16:00] VITALS: BP 156/68
[2017-11-26] VITALS: BP 133/67
[2017-11-26] MEDS: NITROFURANTOIN 50 MG (MACRODANTIN) CAP PO SCH ×2 (00:19→05:50)
[2017-11-26] MEDS: HYDROcodone/APAP 10 MG/325 MG (LORTAB) TAB PO PRN (04:16)
[2017-11-26] MEDS: SENNA W/DOCUSATE (SENOKOT S) TABLET PO SCH (08:32)
[2017-11-26] MEDS: MENTHOL/ZINC OXIDE (CALMOSEPTINE) 113 GM TUBE TOP SCH (08:32)
[2017-11-26] MEDS: amLODIPine 5 MG (NORVASC) TAB PO SCH (08:32)
[2017-11-26] MEDS: ASPIRIN E.C. 81 MG (ECOTRIN) TAB PO SCH (08:33)
[2017-11-26 08:53] VITALS: BP 139/68
[2017-11-26 09:10] VITALS: BP 139/68
--- NOTE | 2017-11-26 09:41 | Physical Therapy Daily Note ---
PT Daily Note-Current Subjective Patient is very excited to dismiss to NH for continued care on this date. Pain Numeric Pain Scale: 5-Moderate Pain Location: Left Location Body Site: Hip Pain Description: Acute Mental Status Patient Orientation: Normal For Age Transfers Functional [place] Measure 0=Not Assessed/NA 4=Minimal Assistance 1=Total Assistance 5=Supervision or Setup 2=Maximal Assistance 6=Modified [place] 3=Moderate Assistance 7=Complete IndependenceIRFPAI Quality Coding Scale 6 Independent with activity with or without an assistive device 5 Patient requires set up or clean up by helper. Patient completes activity by themselves 4 Supervision or touching assist (CGA). [place] provide cues , steadying assist 3 The helper provides less than half the effort to complete the activity 2 The helper provides more than half the effort to complete the activity 1 Dependent. The helper does all the effort to complete an activity 7 Patient refused to complete or attempt activity 9 The patient did not perform the activity before the current illness or injury 88 Not attempted due to Medical conditions or safety concerns Transfers (B, C, W/C) (FIM): 4 Scootin Rollin Supine to/from Sit: 4 Sit to/from Stand: 5 assist with returning to supine from sit Weight Bearing Right Lower Extremity: Right Full Weight Bearing Left Lower Extremity: Left Touch Toe Bearing x 6-8 wks Gait Training Gait (FIM): 2 Distance (FIM): 4=859-08 ft Distance: 125' Gait Level of Assist: 5 Gait Assistive Device: FWW compliance with TTWB left LE Exercises Supine Ex: Ankle pumps, Quad Set Supine Reps: 15 Assessment Current Status: Excellent Progress Patient to dismiss to NH on this date for continued care. Goals addressed. PT Short Term Goals Short Term Goals Time Frame: Dec 05, 2017 Gait (FIM): 5 Distance (FIM): 3=150 ft Gait Distance Comment: at least 200ft with FWW Gait Level of Assist: 5 Gait Assistive Device: FWW Stairs (FIM): 2 # of Steps: 1 Stairs Level of Assist: 2 PT Slab Installer Goals Slab Installer Goals PT Halfway Goals Time Frame: Dec 19, 2017 Transfers (B,C,W/C) (FIM): 6 Gait (FIM): 6 Gait distance (FIM): 3=150 ft Distance: 250ft Gait Level of Assist: 6 Gait Assistive Device: FWW Stairs (FIM): 2 # of Steps: 4 Stairs Level Of Assist: 6 PT Plan Treatment/Plan Treatment Plan: Discontinue PT Treatment Plan: Bed Mobility, Education, Functional Activity Jessika, Functional Strength, Gait, Safety, Therapeutic Exercise, Transfers Treatment Duration: Dec 19, 2017 Frequency: 11 times per week Estimated Hrs Per Day: .5 hour per day Patient and/or Family Agrees t: Yes Time/GCodes Time In: 901 Time Out: 912 Total Billed Treatment Time: 11 Total Billed Treatment 1 visit GT 11 min REYMUNDO ODONNELL PT Nov 26, 2017 09:40
== END 2017-11-26 10:20 | DRG 481 ==
LOC: EDUNIT# 12:06 → ER 12:07 → 4TH 14:00 → EDPENDDISTM 11-24 11:00 → EDPENDDISDT 11-24 11:00
PROVIDERS: ADMIT Orthopaedic Surgery; ATTEND Orthopaedic Surgery
PROC: 0QS706Z Reposition Left Upper Femur with Intramedullary Internal Fixation Device, Open Approach (ICD-10-PCS; principal; 2017-11-20 08:10)
DX: S72.122A Displaced fracture of lesser trochanter of left femur, initial encounter for closed fracture (principal); S72.22XA Displaced subtrochanteric fracture of left femur, initial encounter for closed fracture; N39.0 Urinary tract infection, site not specified; R17 Unspecified jaundice; I10 Essential (primary) hypertension; E87.6 Hypokalemia; E83.42 Hypomagnesemia; I73.9 Peripheral vascular disease, unspecified; K59.09 Other constipation; M19.91 Primary osteoarthritis, unspecified site; Z98.1 Arthrodesis status; I35.0 Nonrheumatic aortic (valve) stenosis; R19.7 Diarrhea, unspecified; B96.20 Unspecified Escherichia coli [E. coli] as the cause of diseases classified elsewhere; W10.8XXA Fall (on) (from) other stairs and steps, initial encounter; Y92.008 Other place in unspecified non-institutional (private) residence as the place of occurrence of the external cause
CPT/HCPCS: 36415; 71045; 72100; 80048; 80053; 81000; 83735; 85007; 85014; 85018; 85025; 85027; 87081; 87088; 87186; 93005; 94664; 96374; 99284

== ENCOUNTER → 2018-09-15 | Outpatient (CLI) | payer MEDICARE, OTHER ==
[~2018-09-15] MED LIST changes: +AMLO5TAB7 PO; +ASPI-983 PO; +BARIUM SUSPENSION 105% (LIQUID POLIBAR PLUS) 240 ML/DOSE PO ONE; +BARIUM SUSPENSION 60% (LIQUID EZ PAQUE) 240 ML DOSE PO ONE; +CHOL20002 PO; +ELDE1CAP PO; +HYDR-3820 PO; +L.AC1CAP6 PO; +LUTE20TA PO; +METO-387 PO; +MULT-35 PO; +NITR50CA PO; +OMG1KC PO; +SENN-20 PO; +SLIPPERY ELM PO; +[UNRECOGNIZED DRUG - OTHER] PO
--- NOTE | 2018-09-16 08:28 | Diagnostic Imaging Report ---
INDICATION: Dysphagia. Patient ingested effervescent crystals as well as thin and thick barium and imaging of the esophagus was performed. One minute and 5 seconds of fluoroscopy was utilized. A preliminary radiograph over the chest is unremarkable. The esophagus has a smooth contour. No mass or stricture is seen. No significant gastroesophageal reflux is identified. There is a very small hiatal hernia. Occasional tertiary contractions are seen. IMPRESSION: Mild esophageal dysmotility. Study is otherwise unremarkable. Dictated by: Dictated on workstation # [id number]
== END ==
LOC: RAD 08:53
PROVIDERS: ATTEND Nurse Practitioner Family
DX: K22.4 Dyskinesia of esophagus (principal)
CPT/HCPCS: 74220

== ENCOUNTER 2019-01-02 05:38 | Outpatient (CLI) | payer MEDICARE, OTHER ==
[~2019-01-02] VITALS: Ht 157.5 cm; Wt 68.0 kg
[~2019-01-02 05:38] MED LIST changes: -AMLO5TAB7 PO; +AMLO5TAB9 PO; -BARIUM SUSPENSION 105% (LIQUID POLIBAR PLUS) 240 ML/DOSE PO ONE; -BARIUM SUSPENSION 60% (LIQUID EZ PAQUE) 240 ML DOSE PO ONE
[2019-01-02] MEDS ORDERED: MULT-178 PO (09:27)
[2019-01-02] MEDS ORDERED: UBIQ100C3 PO (09:27)
== END 2019-01-02 09:37 | disposition home or self-care (01) ==
LOC: PREOP 05:38
PROVIDERS: ATTEND Surgery
DX: Z01.818 Encounter for other preprocedural examination (principal)

== ENCOUNTER 2019-01-04 06:53 | Day surgery (SDC) | payer MEDICARE, OTHER ==
[~2019-01-04] VITALS: Ht 157.5 cm; Wt 68.0 kg
[~2019-01-04 06:53] MED LIST changes: +MULT-178 PO; +UBIQ100C3 PO
[2019-01-04 07:00] VITALS: BP 167/82
[2019-01-04] MEDS ORDERED: LACTATED RINGERS 1,000 ML IV PRN (07:23)
[2019-01-04] MEDS ORDERED: BUP/EPI 0.5% 1:200,000 (SENSORCAINE) 30 ML VIAL ONE (07:27)
[2019-01-04] MEDS ORDERED: ceFAZolin 2 GM IV Premixed 50 ML IV ONE (07:30)
[2019-01-04] MEDS ORDERED: proPOfol 200 MG/20 ML (DIPRIVAN) VIAL IV ONE (07:30)
[2019-01-04] MEDS ORDERED: LIDOCAINE PF 2% 5 ML (XYLOCAINE) VIAL ONE (07:31)
[2019-01-04] MEDS ORDERED: MIDAZOLAM 2 MG/2 ML (VERSED) VIAL ONE (07:31)
[2019-01-04] MEDS ORDERED: fentaNYL INJECTION 100 MCG/2 ML AMP ONE (07:31)
[2019-01-04] MEDS ORDERED: PROPOFOL INJECTION 50 ML IV ONE (07:35)
[2019-01-04] MEDS ORDERED: ONDANSETRON 4 MG/2 ML (SDV) Z0FRAN ONE (07:39)
--- OUTSIDE RECORDS SUMMARY | 2019-01-04 08:07 | XMS REPORT | Clinical Summary ---
Author Author [facility] Address Unknown Phone Unavailable Care Team Providers Care Supervisor [employer] Name Role Phone Nadia Hutchinson Unavailable Jean Paul Tran MD Unavailable Sandy Negrete RN Unavailable Unavailable No Pcp, Na PCP Unavailable Source Comments Some departments are not documenting in the electronic medical record. If you do not see the information that you expected, contact Release of Information in the Health Information Management department at [phone] for further assistance in locating additional records.[facility] Allergies No Known Allergies Medications End Date Status Medication Sig Dispensed Refills Start Date Active vitamins, multiple cap Take 1 Cap by 0 mouth daily. Active Fish Oil-[place]-3 Fatty Take 1 Cap by 0 Acids (FISH OIL) mouth daily. 360-1,200 mg cap Active aspirin EC 81 mg tablet Take 81 mg by 0 mouth daily. Active hydrochlorothiazide Take 12.5 mg 0 (HYDRODIURIL) 25 mg by mouth tablet daily. Active amLODIPine (NORVASC) 5 mg Take 5 mg by 0 tablet mouth twice daily. Active LACTOBACILLUS COMBO NO.6 Take 3 Caps 0 (PROBIOTIC COMPLEX PO) by mouth daily. Active losartan (COZAAR) 50 mg Take 50 mg by 0 tablet mouth at bedtime daily. Active Cholecalciferol (Vitamin Take 1 Cap by 0 D3) (VITAMIN D-3) 2,000 mouth daily. unit cap Active ondansetron (ZOFRAN) 4 mg Take 4 mg by 0 tablet mouth every 8 hours as needed. Active metoclopramide HCl Take 5 mg by 0 (REGLAN) 5 mg tablet mouth twice daily before meals. Active Cyanocobalamin (VITAMIN Place 1 Tab 0 B-12) 2,500 mcg subl under tongue daily. Active potassium chloride SR Take 10 mEq 0 (K-DUR) 10 mEq tablet by mouth daily. Active CALCIUM PO Take 1 Tab by 0 mouth daily. Takes liquid calcium 1000mg with magnesium 400 mg Active VIT A/VIT C/VIT Take 1 Tab by 0 E/ZINC/COPPER mouth daily. (PRESERVISION AREDS PO) Active Problems Problem [...] Father Mother Sister Son Alive Social History Date Tobacco Use Types Packs/Day Years Used Quit: 01/02/2000 Former Smoker Alcohol Use Drinks/Week oz/Week Comments No Sex Assigned at Date Recorded Not on file Industry Job Start Date Occupation Not on file Not on file Not on file Travel End Travel History Travel Start No recent travel history available. Last Filed Vital Signs Time Taken Vital Sign Reading 01/25/2014 11:45 AM CDT Blood Pressure 134/63 01/25/2014 11:15 AM CDT Pulse 79 01/25/2014 8:25 AM CDT Temperature 36.7 C (98.1 F) 01/03/2014 1:21 PM [employer] Respiratory Rate 20 01/25/2014 11:15 AM CDT Oxygen Saturation 95% - Inhaled Oxygen - Concentration 01/03/2014 1:21 PM [employer] Weight 64 kg (141 lb) 01/03/2014 1:21 PM [employer] Height 160 cm (5' 3") 01/03/2014 1:21 PM [employer] Body Mass Index 24.98 Plan of Treatment Health Maintenance Due Date Last Done Comments PHYSICAL (COMPREHENSIVE) 1943 EXAM DTAP/TDAP VACCINES (1 - 1954 Tdap) SHINGLES RECOMBINANT 1986 VACCINE (1 of 2) OSTEOPOROSIS 2001 SCREENING/MONITORING PNEUMONIA (PCV13/PPSV23) 2001 VACCINES (1 of 2 - PCV13) INFLUENZA VACCINE 06/01/2019 Results Not on filefrom Last 3 Months Insurance Payer Benefit Subscriber ID Type Phone Address Plan / Group MEDICARE MEDICARE xxxxxxxxxx Medicare PART A AND B AETNA AETNA xxxxxxxxxx HMO GENERIC Advance Directives Patient has advance care planning documents on file. For more information, please contact: [facility] [address] [place] [address]
--- OUTSIDE RECORDS SUMMARY | 2019-01-04 08:11 | XMS REPORT | CCD ---
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 Name Role Phone PP Unavailable CCM Unavailable Summary Purpose Interface Exchange Insurance Providers Payer name Policy type / Coverage type Covered alliance party ID Effective Begin Date Effective End Date [facility] Commercial Insurance [id number] 2017 Unknown Family history Father Diagnosis Age At Onset Hyperlipidemia Unknown Hypertension Unknown Heart Attack Unknown Arthritis Unknown Mother Diagnosis Age At Onset Hypertension Unknown Depression Unknown Diabetes Unknown Sister Diagnosis Age At Onset Hypertension Unknown Depression Unknown Son Diagnosis Age At Onset Depression Unknown Hyperlipidemia Unknown Alcoholism Unknown Daughter Diagnosis Age At Onset No Family Disease Entered N/A Social History Social History Element Codes Description Effective Dates Employment Unknown Currently employed works 2 hours 4 days a week [employer] in [place]./ Retired Nov 2013 08/22/2014 Marital status Unknown 05/31/[address]: 9196824 Quit over 10 years ago 05/31/[address]: 864739091 Never drinks alcohol 05/31/2013 Has the patient ever used illegal drugs? Unknown Has never used illegal drugs 05/31/2013 Allergies, Adverse Reactions, Alerts Substance Reaction Codes Entered Date Inactivated Date Status * NO KNOWN ENVIRONMENTAL ALLERGIES Unknown 05/31/2013 No Inactive Date Active * NO KNOWN FOOD ALLERGIES Unknown 05/31/2013 No Inactive Date Active * NO KNOWN DRUG ALLERGIES Unknown 05/31/2013 No Inactive Date Active Past Medical History Illness Codes Condition Status Onset Date Resolved Date Cough ICD-9: 786.2 ICD-10: R05 Active 10/04/2016 Unknown Essential (primary) hypertension ICD-9: 401.9 ICD-10: I10 Active 04/13/2016 Unknown Low back pain ICD-9: 724.2 ICD-10: M54.5 Active 12/05/2018 Unknown Other allergic rhinitis ICD-9: 477.8 ICD-10: J30.89 Active 07/12/2017 Unknown Dysphagia, oropharyngeal phase ICD-9: 787.22 ICD-10: R13.12 Active 08/02/2018 Unknown 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 ICD-9: 216.3 ICD-10: D22.39 Active 08/02/2018 Unknown Nonrheumatic aortic (valve) stenosis ICD-9: 424.1 ICD-10: I35.0 Active 01/12/2016 Unknown Overactive bladder ICD -9: 596.51 ICD-10: N32.81 Active 12/21/2017 Unknown Dysuria ICD-9: 788.1 ICD-10: R30.0 Active 12/03/2017 Unknown Other muscle spasm ICD -9: 728.85 ICD-10: M62.838 Active 12/03/2017 Unknown Pain in left hip ICD-9 : 719.45 ICD-10: M25.552 Active 12/03/2017 Unknown Unsteadiness on feet ICD-9: 781.2 ICD-10: R26.81 Active 12/03/2017 Unknown Weakness ICD-9: 780.79 ICD-10: R53.1 Active 12/03/2017 Unknown Zoster without complications ICD-9: 053.9 ICD-10: B02.9 Active 10/11/2017 Unknown Encounter for general adult medical examination with abnormal findings ICD-9: V70.0 ICD-10: Z00.01 Active 08/03/2017 Unknown Other acute sinusitis ICD-9: 461.8 ICD-10: J01.80 Active 07/12/2017 Unknown Wheezing ICD-9: 786.07 ICD-10: R06.2 Active 07/12/2017 Unknown Functional diarrhea ICD-9: 564.5 ICD-10: K59.1 Active 01/19/2017 Unknown Nausea ICD-9: 787.02 ICD-10: R11.0 Active 01/19/2017 Unknown Allergic rhinitis due to pollen ICD-9: 477.0 ICD-10: J30.1 Active 10/04/2016 Unknown 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 ICD-10: D50.0 Active 10/10/2015 Unknown Pityriasis versicolor ICD-9: 111.0 ICD-10: B36.0 Active 04/05/2017 Unknown brain tumor Unknown Active 04/14/2016 Unknown Gastro-esophageal reflux disease without esophagitis ICD-9: 530.81 ICD-10: K21.9 Active 04/13/2016 Unknown Parkinson's disease ICD-9: 332.0 ICD-10: G20 Active 04/13/2016 Unknown Allergic rhinitis, unspecified ICD-9: 477.9 ICD-10: J30.9 Active 01/12/2016 Unknown Other specified noninfective gastroenteritis and colitis ICD-9: 558.9 ICD-10: K52.89 Active 2015 Unknown Unspecified hemorrhoids ICD-9: 455.6 ICD-10: K64.9 Active 2015 Unknown Diarrhea ICD-9: 787.91 Active 10/18/2013 Unknown Fecal incontinence ICD -9: 787.60 Active 05/23/2015 Unknown Lumbar back pain ICD-9 : 724.2 Active 05/23/2015 Unknown Numbness of legs ICD-9 : 782.0 Active 05/23/2015 Unknown ACUTE SINUSITIS ICD-9 : 461.9 Active 02/14/2015 Unknown COUGH ICD-9: 786.2 Active 02/14/2015 Unknown Depression Unknown Active 08/22/2014 Unknown Depression ICD-9: 311 Active 08/22/2014 Unknown ESSENTIAL HYPERTENSION ICD-9: 401.9 Active 08/22/2014 Unknown Hip pain ICD-9: 719.45 Active 08/22/2014 Unknown Constipation - functional ICD-9: 564.09 Active 02/21/2014 Unknown Renal cyst ICD-9: 753.10 Active 12/19/2013 Unknown UTI ICD-9: 599.0 Active 12/04/2013 Unknown Abdominal discomfort ICD-9: 789.00 Active 10/31/2013 Unknown Nausea and vomiting ICD-9: 787.01 Active 10/31/2013 Unknown cyst on kidney Unknown Active 04/30/2007 Unknown Hypertension Unknown Active 05/31/2013 Unknown Problems Condition Codes Effective Dates Condition Status Cough ICD-9: 786.2 ICD-10: R05 10/04/2016 Active Essential (primary) hypertension ICD-9: 401.9 ICD-10: I10 04/13/2016 Active Low back pain ICD-9: 724.2 ICD-10: M54.5 12/05/2018 Active Other allergic rhinitis ICD-9: 477.8 ICD-10: J30.89 07/12/2017 Active Dysphagia, oropharyngeal phase ICD-9: 787.22 ICD-10: R13.12 08/02/2018 Active 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 ICD-9: 216.3 ICD-10: D22.39 08/02/2018 Active Nonrheumatic aortic (valve) stenosis ICD-9: 424.1 ICD-10: I35.0 01/12/2016 Active Overactive bladder ICD -9: 596.51 ICD-10: N32.81 12/21/2017 Active Dysuria ICD-9: 788.1 ICD-10: R30.0 12/03/2017 Active Other muscle spasm ICD -9: 728.85 ICD-10: M62.838 12/03/2017 Active Pain in left hip ICD-9 : 719.45 ICD-10: M25.552 12/03/2017 Active Unsteadiness on feet ICD-9: 781.2 ICD-10: R26.81 12/03/2017 Active Weakness ICD-9: 780.79 ICD-10: R53.1 12/03/2017 Active Zoster without complications ICD-9: 053.9 ICD-10: B02.9 10/11/2017 Active Encounter for general adult medical examination with abnormal findings ICD-9: V70.0 ICD-10: Z00.01 08/03/2017 Active Other acute sinusitis ICD-9: 461.8 ICD-10: J01.80 07/12/2017 Active Wheezing ICD-9: 786.07 ICD-10: R06.2 07/12/2017 Active Functional diarrhea ICD-9: 564.5 ICD-10: K59.1 01/19/2017 Active Nausea ICD-9: 787.02 ICD-10: R11.0 01/19/2017 Active Allergic rhinitis due to pollen ICD-9: 477.0 ICD-10: J30.1 10/04/2016 Active 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 ICD-10: D50.0 10/10/2015 Active Pityriasis versicolor ICD-9: 111.0 ICD-10: B36.0 04/05/2017 Active brain tumor Unknown 04/14/2016 Active Gastro-esophageal reflux disease without esophagitis ICD-9: 530.81 ICD-10: K21.9 04/13/2016 Active Parkinson's disease ICD-9: 332.0 ICD-10: G20 04/13/2016 Active Allergic rhinitis, unspecified ICD-9: 477.9 ICD-10: J30.9 01/12/2016 Active Other specified noninfective gastroenteritis and colitis ICD-9: 558.9 ICD-10: K52.89 2015 Active Unspecified hemorrhoids ICD-9: 455.6 ICD-10: K64.9 2015 Active Diarrhea ICD-9: 787.91 10/18/2013 Active Fecal incontinence ICD -9: 787.60 05/23/2015 Active Lumbar back pain ICD-9 : 724.2 05/23/2015 Active Numbness of legs ICD-9 : 782.0 05/23/2015 Active ACUTE SINUSITIS ICD-9 : 461.9 02/14/2015 Active COUGH ICD-9: 786.2 02/14/2015 Active Depression Unknown 08/22/2014 Active Depression ICD-9: 311 08/22/2014 Active ESSENTIAL HYPERTENSION ICD-9: 401.9 08/22/2014 Active Hip pain ICD-9: 719.45 08/22/2014 Active Constipation - functional ICD-9: 564.09 02/21/2014 Active Renal cyst ICD-9: 753.10 12/19/2013 Active UTI ICD-9: 599.0 12/04/2013 Active Abdominal discomfort ICD-9: 789.00 10/31/2013 Active Nausea and vomiting ICD-9: 787.01 10/31/2013 Active cyst on kidney Unknown 04/30/2007 Active Hypertension Unknown 05/31/2013 Active Medications Medication Codes Instructions Start Date Stop Date Status Fill Instructions Kenalog 40 mg/mL suspension for injection RxNorm: 8911597 Milliliter(s) Inj 12/05/2018 12/05/2018 Inactive Protonix 40 mg tablet,delayed release RxNorm: 240272 1 Tablet(s) PO daily 10/04/2018 11/02/2018 Inactive Protonix 40 mg tablet,delayed release RxNorm: 152645 1 Tablet(s) PO daily 10/04/2018 10/03/2018 Inactive amlodipine 5 mg tablet RxNorm: 683345 1 Tablet(s) PO daily 09/201804/05/2019 Active hydrochlorothiazide 25 mg tablet RxNorm: 577648 1 Tablet(s) PO daily 04/11/2018 04/05/2019 Active Myrbetriq 25 mg tablet,extended release RxNorm: 4051880 1 Tablet(s) PO QHS 12/28/2017 03/27/2018 Inactive Myrbetriq 25 mg tablet,extended release RxNorm: 2320344 1 Tablet(s) PO QHS 12/28/2017 12/27/2017 Inactive Myrbetriq 25 mg tablet,extended release RxNorm: 3580715 1 Tablet(s) PO QHS 12/21/2017 No Stop Date Active hydrocodone 10 mg-acetaminophen 325 mg tablet RxNorm: 317064 1 Tablet(s) PO Q4 PRN as needed 12/09/2017 01/07/2018 Inactive Zithromax Z-Javier 250 mg tablet RxNorm: 743182 1 Tablet(s) PO UD 10/29/2017 11/02/2017 Inactive triamcinolone acetonide 0.025 % topical cream RxNorm: 5663758 1 Application TOP BID 10/11/2017 No Stop Date Active valacyclovir 1 gram tablet RxNorm: 481162 1 Tablet(s) PO TID 10/17/2017 Inactive ketoconazole 2 % shampoo RxNorm: 372398 1 Application TOP every other day APPLY HEAD TO TOE, LEAVE ON FOR 5 MINUTES THEN RINSE, DO EVERY OTHER DAY X 2 WEEKS, MAY NEED ANOTHER 3RD 09/08/20172016 Inactive hydrochlorothiazide 25 mg tablet RxNorm: 934664 1 Tablet(s) PO daily TAKE 1 TABLET EVERY DAY 08/02/2017 04/10/2018 Inactive Xyzal 5 mg tablet RxNorm: 071026 1 Tablet(s) PO daily 201608/31/2017 Inactive Keflex 500 mg capsule RxNorm: 904872 1 Capsule(s) PO TID 201607/25/2017 Inactive Keflex 500 mg capsule RxNorm: 252554 1 Capsule(s) PO TID 201607/18/2017 Inactive Kenalog 40 mg/mL suspension for injection RxNorm: 5761108 Milliliter(s) Inj 07/12/2017 07/12/2017 Inactive Zithromax Z-Javier 250 mg tablet RxNorm: 401173 1 Tablet(s) PO UD 07/06/2017 07/10/2017 Inactive amlodipine 5 mg tablet RxNorm: 963985 1 Tablet(s) PO daily 04/10/2018 Inactive amlodipine 5 mg tablet RxNorm: 588386 1 Tablet(s) PO daily 07/01/2017 Inactive promethazine 25 mg tablet RxNorm: 129779 1 Tablet(s) PO Q6 as needed nausea 01/21/2017 No Stop Date Active Probiotic Colon Support 240 mg (3 billion cell) capsule RxNorm: 1 Capsule(s) PO daily 01/19/2017 No Stop Date Active Flagyl 500 mg tablet RxNorm: 807537 1 Tablet(s) PO TID 201601/25/2017 Inactive prednisone 20 mg tablet RxNorm: 953262 1 Tablet(s) PO BID 11/1011/14/2016 Inactive prednisone 20 mg tablet RxNorm: 458352 1 Tablet(s) PO BID 11/1011/09/2016 Inactive doxycycline hyclate 100 mg tablet RxNorm: 684178 1 Tablet(s) PO BID 11/03/2016 11/02/2016 Inactive doxycycline hyclate 100 mg tablet RxNorm: 104854 1 Tablet(s) PO BID 11/03/2016 11/09/2016 Inactive losartan 50 mg tablet RxNorm: 729450 TAKE 1 TABLET EVERY EVENING 10/27/2016 06/28/2017 Inactive escitalopram 10 mg tablet RxNorm: 142457 TAKE 1 TABLET EVERY EVENING 10/12/2016 06/13/2017 Inactive Kenalog 40 mg/mL suspension for injection RxNorm: 6367084 Milliliter(s) Inj 10/05/2016 10/05/2016 Inactive Zithromax Z-Javier 250 mg tablet RxNorm: 126351 1 Tablet(s) PO UD 07/15/2016 01/18/2017 Inactive z pack as directed amlodipine 5 mg tablet RxNorm: 561059 1 Tablet(s) TAKE 1 TABLET TWICE DAILY 06/23/2016 06/28/2017 Inactive hydrochlorothiazide 25 mg tablet RxNorm: 236822 1 Tablet(s) PO daily TAKE 1 TABLET EVERY DAY 06/23/2016 08/01/2017 Inactive Kenalog 40 mg/mL suspension for injection RxNorm: 2129381 Milliliter(s) Inj 04/14/2016 04/14/2016 Inactive omeprazole 20 mg capsule,delayed release RxNorm: 825000 1 Capsule(s) PO daily 04/14/2016 10/04/2016 Inactive losartan 50 mg tablet RxNorm: 487196 1 Tablet(s) PO QPM 201410/11/2016 Inactive amlodipine 5 mg tablet RxNorm: 509803 TAKE 1 TABLET TWICE DAILY 09/16/2015 06/11/2016 Inactive Lomotil 2.5 mg-0.025 mg tablet RxNorm: 1150378 1 Tablet(s) PO PRN take 1 tab after each loose stool max of 8 tabs per day 08/16/2015 01/12/2016 Inactive one after each loose bm. limit 8 per day hydrocortisone 2.5 % rectal cream RxNorm: 611929 1 Application RTL BID PRN 08/09/2015 10/07/2015 Inactive hydrochlorothiazide 25 mg tablet RxNorm: 742134 1 Tablet(s) PO daily TAKE 1 TABLET EVERY DAY 07/02/2015 06/22/2016 Inactive escitalopram 10 mg tablet RxNorm: 890836 1 Tablet(s) PO QPM 11/201403/27/2016 Inactive amlodipine 5 mg tablet RxNorm: 696289 1 Tablet(s) PO BID 201409/15/2015 Inactive Kenalog 40 mg/mL suspension for injection RxNorm: 4761828 Milliliter(s) Inj 02/14/2015 02/14/2015 Inactive [SAVINGS FOR NON-COVERED DRUGS -- BIN:004520, PCN: ASPROD1, Group: XXXXX, ID# [id number], Questions: . THIS IS NOT INSURANCE.] Flonase Allergy Relief 50 mcg/actuation nasal spray, suspension RxNorm: 2 [place] NASAL daily 02/14/2015 04/14/2015 Inactive [SAVINGS FOR NON-COVERED DRUGS -- BIN:301369, PCN: ASPROD1, Group: XXXXX, ID# [id number], Questions: [phone]. THIS IS NOT INSURANCE.] cefdinir 300 mg capsule RxNorm: 308465 1 Capsule(s) PO BID 02/20/2015 Inactive [SAVINGS FOR NON-COVERED DRUGS -- BIN:071143, PCN: ASPROD1, Group: XXXXX, ID# [id number], Questions: . THIS IS NOT INSURANCE.] ceftriaxone 500 mg solution for injection RxNorm: 0001471 Inj 02/14/2015 02/14/2015 Inactive [SAVINGS FOR NON-COVERED DRUGS -- BIN:055064, PCN: ASPROD1, Group: XXXXX, ID# [id number], Questions: . THIS IS NOT INSURANCE.] hydrochlorothiazide 25 mg tablet RxNorm: 878607 TAKE 1 TABLET EVERY DAY 11/06/2014 07/01/2015 Inactive hydrochlorothiazide 25 mg tablet RxNorm: 458652 1/2 Tablet(s) PO daily 11/06/2014 11/05/2014 Inactive [SAVINGS FOR UNINSURED PATIENTS -- BIN:207980, PCN: ASPROD1, Group: [id number], ID# [id number], Process claim through [employer], for questions: [phone]. THIS IS NOT INSURANCE.] escitalopram 10 mg tablet RxNorm: 553847 1 Tablet(s) PO QPM 07/01/2015 Inactive hydrochlorothiazide 25 mg tablet RxNorm: 745599 1/2 Tablet(s) PO daily 10/22/2014 11/05/2014 Inactive losartan 50 mg tablet RxNorm: 139316 1 Tablet(s) PO QPM 201308/16/2015 Inactive amlodipine 5 mg tablet RxNorm: 366248 1 Tablet(s) PO BID 201307/01/2015 Inactive escitalopram 10 mg tablet RxNorm: 659049 1 Tablet(s) PO QPM 08/21/2014 Inactive escitalopram 10 mg tablet RxNorm: 303706 1 Tablet(s) PO QPM 10/21/2014 Inactive Probiotic Colon Support 240 mg (3 billion cell) capsule RxNorm: 1 Capsule(s) PO BID 02/21/2014 02/15/2015 Inactive Lomotil 2.5 mg-0.025 mg tablet RxNorm: 5342777 1 Tablet(s) PO take 1 tab after each loose stool max of 8 tabs per day 12/22/2013 08/15/2015 Inactive one after each loose bm. limit 8 per day nitrofurantoin 100 mg capsule RxNorm: 554409 1/2 Tablet(s) PO BID 12/22/2013 12/28/2013 Inactive nitrofurantoin 100 mg capsule RxNorm: 383665 1/2 Tablet(s) PO BID 12/22/2013 12/21/2013 Inactive Zofran 4 mg tablet RxNorm: 424878 1 Tablet(s) PO Q6 PRN 12/20 No Stop Date Active Reglan 5 mg tablet RxNorm: 890829 1 Tablet(s) PO BID 201301/17/2014 Inactive potassium chloride ER 10 mEq tablet,extended release RxNorm: 166719 1 Tablet(s) PO daily 12/05/2013 01/12/2016 Inactive Zofran 4 mg tablet RxNorm: 587752 1 Tablet(s) PO Q6 PRN 12/0512/04/2013 Inactive Zofran 4 mg tablet RxNorm: 392500 1 Tablet(s) PO Q6 PRN 12/0512/19/2013 Inactive Rocephin 500 mg solution for injection RxNorm: 759416 1 Milliliter(s) Inj 12/04/2013 12/04/2013 Inactive Bactrim DS 800 mg-160 mg tablet RxNorm: 567542 1 Tablet(s) PO BID 12/04/2013 12/10/2013 Inactive Fish Oil 360 mg-1,200 mg capsule,delayed release RxNorm: 1 Capsule(s) PO daily 11/23/2013 01/12/2016 Inactive Calcium Antacid Ultra Max St 400 mg (1,000 mg) chewable tablet RxNorm: 391865 1 Tablet(s) PO TID 11/23/2013 01/12/2016 Inactive Probiotic Complex 100 mg-500 mg-50 mg capsule RxNorm: 079208 1 Capsule(s) PO BID 11/23/2013 10/22/2014 Inactive metronidazole 500 mg tablet RxNorm: 279633 1 Tablet(s) PO TID 10/26/2013 11/04/2013 Inactive metronidazole 500 mg tablet RxNorm: 361622 1 Tablet(s) PO TID 10/18/2013 10/25/2013 Inactive hydrochlorothiazide 25 mg tablet RxNorm: 785510 1 Tablet(s) PO daily 10/11/2013 10/05/2014 Inactive amlodipine 5 mg tablet RxNorm: 474343 1 Tablet(s) PO BID 201208/21/2014 Inactive losartan 50 mg tablet RxNorm: 035378 1 Tablet(s) PO QPM 201208/21/2014 Inactive hydrochlorothiazide 25 mg tablet RxNorm: 113944 1 Tablet(s) PO daily 07/25/2013 10/10/2013 Inactive hydrochlorothiazide 25 mg tablet RxNorm: 781729 1 Tablet(s) PO daily 06/21/2013 07/24/2013 Inactive losartan 50 mg tablet RxNorm: 766770 1 Tablet(s) PO QPM 201210/10/2013 Inactive ketoconazole 2 % Shampoo RxNorm: 895526 1 Application TOP every other day APPLY HEAD TO TOE, LEAVE ON FOR 5 MINUTES THEN RINSE, DO EVERY OTHER DAY X 2 WEEKS, MAY NEED ANOTHER 3RD 05/31/20132012 Inactive multivitamin capsule RxNorm: 1 Capsule(s) PO No Start Date Active aspirin 81 mg tablet RxNorm: 050820 1 Tablet(s) PO daily No Start Date Active Lutein Vison Formula oral RxNorm: 07525 oral No Start Date Active magnesium 200 mg tablet RxNorm: 1 Tablet(s) PO BID No Start Date Active Fish Oil 360 mg-1,200 mg capsule RxNorm: 204697 1 Capsule(s) PO BID No Start Date Active Vitamin D3 2,000 unit capsule RxNorm: 004648 1 Capsule(s) PO daily No Start Date Active melatonin 5 mg tablet RxNorm: 181105 1 Tablet(s) PO QHS No Start Date Active metoprolol succinate ER 25 mg tablet,extended release 24 hr RxNorm: 993100 1 Tablet(s) PO QPM No Start Date Active ubiquinone oral RxNorm : 78011 oral No Start Date Active Vitamin B-12 5,000 mcg/mL sublingual drops RxNorm: 0360597 1 Milliliter(s) SL daily No Start Date Active promethazine 25 mg tablet RxNorm: 460815 1 Tablet(s) PO Q6 as needed nausea No Start Date 01/20/2017 Inactive Lomotil 2.5 mg-0.025 mg tablet RxNorm: 8685180 1 Tablet(s) PO No Start Date 12/21/2013 Inactive one after each loose bm. limit 8 per day potassium 99 mg tablet RxNorm: 1 Tablet(s) PO daily No Start Date 02/20/2014 Inactive potassium chloride ER 10 mEq tablet,extended release RxNorm: 522526 1 Tablet(s) PO daily No Start Date 12/04/2013 Inactive promethazine 25 mg tablet RxNorm: 187257 1 Tablet(s) PO Q6 PRN No Start Date 10/22/2014 Inactive krill 500 mg-omega-3 150 mg-dha 45 mg-epa 75 mg-phospho- astax capsule RxNorm: 1 Capsule(s) PO daily No Start Date 2016 Inactive Zithromax Z-Javier oral RxNorm: oral No Start Date 07/05/2017 Inactive potassium chloride ER 20 mEq tablet,extended release(part/ cryst) RxNorm: 778815 oral No Start Date 12/04/2013 Inactive PreserVision AREDS 2 250 mg-2.5 mg-0.5 mg capsule RxNorm: 1 Capsule(s) PO BID No Start Date 01/12/2016 Inactive thyroid Oral RxNorm: Oral No Start Date Inactive Zithromax Z-Javier 250 mg tablet RxNorm: 667932 1 Tablet(s) PO UD No Start Date 07/14/2016 Inactive z pack as directed Fish Oil 360 mg-1,200 mg capsule,delayed release RxNorm: Oral No Start Date 11/22/2013 Inactive Probiotic Complex 100 mg-500 mg-50 mg capsule RxNorm: 821033 1 Capsule(s) PO daily No Start Date 11/22/2013 Inactive Super B [id number] tablet RxNorm: 1 Tablet(s) PO daily No Start Date 01/18/2017 Inactive Calcium Antacid Ultra Max St 400 mg (1,000 mg) chewable tablet RxNorm: 754986 1 PO No Start Date 11/22/2013 Inactive hydrochlorothiazide 25 mg tablet RxNorm: 929733 2 Tablet(s) PO daily No Start Date 06/20/2013 Inactive amlodipine 5 mg tablet RxNorm: 287125 1 Tablet(s) PO BID No Start Date 10/10/2013 Inactive Vitamin D3 2,000 unit capsule RxNorm: 277001 1 Capsule(s) PO daily No Start Date 01/12/2016 Inactive Medication Administered Medication Codes Instructions Start Date Status Kenalog 40 mg/mL suspension for injection RxNorm: 5097673 Milliliter 12/05/2018 Active Kenalog 40 mg/mL suspension for injection RxNorm: 2199094 Milliliter 07/12/2017 No longer Active Kenalog 40 mg/mL suspension for injection RxNorm: 8250145 Milliliter 10/05/2016 No longer Active Kenalog 40 mg/mL suspension for injection RxNorm: 7493243 Milliliter 04/14/2016 No longer Active ceftriaxone 500 mg solution for injection RxNorm: 8875828 02/14/2015 No longer Active Kenalog 40 mg/mL suspension for injection RxNorm: 1408309 Milliliter 02/14/2015 No longer Active Rocephin 500 mg solution for injection RxNorm: 082489 1Milliliter 12/04/2013 No longer Active Immunizations Vaccine Codes Date Status Influenza CVX: 141 08/24/2013 completed Assessments Condition Codes Effective Dates Essential (primary) hypertension ICD-10: I10 ICD-9: 401.9 12/05/2018 Cough ICD-10: R05 ICD-9: 786.2 12/05/2018 Low back pain ICD-10: M54.5 ICD-9: 724.2 12/05/2018 Other allergic rhinitis ICD-10: J30.89 ICD-9: 477.8 12/05/2018 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 ICD-10: D22.39 ICD-9: 216.3 08/02/2018 Dysphagia, oropharyngeal phase ICD-10: R13.12 ICD-9: 787.22 08/02/2018 Overactive bladder ICD-10: N32.81 ICD-9: 596.51 12/21/2017 Weakness ICD-10: R53.1 ICD-9: 780.79 12/03/2017 Unsteadiness on feet ICD-10: R26.81 ICD-9: 781.2 12/03/2017 Dysuria ICD-10: R30.0 ICD-9: 788.1 12/03/2017 Pain in left hip ICD-10: M25.552 ICD-9: 719.45 12/03/2017 Other muscle spasm ICD-10: M62.838 ICD-9: 728.85 12/03/2017 Zoster without complications ICD-10: B02.9 ICD-9: 053.9 10/11/2017 Encounter for general adult medical examination with abnormal findings ICD-10: Z00.01 ICD-9: V70.0 08/03/2017 Nonrheumatic aortic (valve) stenosis ICD-10: I35.0 ICD-9: 424.1 08/02/2017 Wheezing ICD-10: R06.2 ICD-9: 786.07 07/12/2017 Other acute sinusitis ICD-10: J01.80 ICD-9: 461.8 07/12/2017 Nausea ICD-10: R11.0 ICD-9: 787.02 06/14/2017 Functional diarrhea ICD-10: K59.1 ICD-9: 564.5 06/14/2017 Pityriasis versicolor ICD-10: B36.0 ICD-9: 111.0 04/05/2017 Iron deficiency anemia secondary to blood loss (chronic) ICD -10: D50.0 ICD-9: 280.0 04/05/2017 Allergic rhinitis due to pollen ICD-10: J30.1 ICD-9: 477.0 04/05/2017 Parkinson's disease ICD-10: G20 ICD-9: 332.0 04/14/2016 Gastro-esophageal reflux disease without esophagitis ICD-10 : K21.9 ICD-9: 530.81 04/14/2016 Allergic rhinitis, unspecified ICD-10: J30.9 ICD-9: 477.9 01/13/2016 Unspecified hemorrhoids ICD-10: K64.9 ICD-9: 455.6 08/09/2015 Other specified noninfective gastroenteritis and colitis ICD -10: K52.89 ICD-9: 558.9 08/09/2015 Numbness of legs ICD-9: 782.0 05/24/2015 Fecal incontinence ICD-9: 787.60 2014 Diarrhea ICD-9: 787.91 05/24/2015 Lumbar back pain ICD-9: 724.2 05/24/2015 DEPRESSIVE DISORDER NEC ICD-9: 311 2014 ESSENTIAL HYPERTENSION ICD-9: 401.9 04/24 COUGH ICD-9: 786.2 02/14/2015 ACUTE SINUSITIS ICD-9: 461.9 02/14/2015 Hip pain ICD-9: 719.45 10/22/2014 Constipation - functional ICD-9: 564.09 02/21/2014 Renal cyst ICD-9: 753.10 02/21/2014 Nausea and vomiting ICD-9: 787.01 2013 UTI ICD-9: 599.0 12/19/2013 Abdominal pain ICD-9: 789.00 11/23/2013 Reason For Visit Reason For Visit Effective Dates Notes rash 12/05/2018 hypertension 08/02/2018 hypertension 04/08/2018 earache 01/31/2018 hypertension 01/10/2018 hip pain 12/21/2017 hip pain 12/03/2017 rash 10/11/2017 Annual Medicare Wellness Exam 08/03/2017 blood pressure followup 08/02/2017 sinus congestion 07/12/2017 hypertension 06/29/2017 hypertension 06/14/2017 hypertension 04/05/2017 diarrhea 01/19/2017 sinus congestion 10/05/2016 gastroesophageal reflux 04/14/2016 hypertension 01/13/2016 diarrhea 10/11/2015 Hospital Follow Up 08/09/2015 diarrhea 05/24/2015 hypertension 04/24/2015 sore throat 02/14/2015 hypertension 10/22/2014 right hypertension 08/22/2014 right hypertension 02/21/2014 diarrhea 12/19/2013 diarrhea 12/04/2013 Hospital Follow Up 11/23/2013 vomiting 10/31/2013 diarrhea 10/18/2013 hypertension 08/30/2013 hypertension 06/21/2013 hypertension 05/31/2013 Results Observation Observation Code Item Item Code Result Date Comp Metabolic Kda299 NA 132 mEq/L 01/10/2018 Comp Metabolic Tcx827 K 3.5 mEq/L 01/10/2018 Comp Metabolic Pyd596 CL 91 mEq/L 01/10/2018 Comp Metabolic Pof132 CO2 34.0 mEq/L 01/10/2018 Comp Metabolic Zdz340 ANION GAP 11 01/10/2018 Comp Metabolic Dvc036 GLUCOSE 150 mg/dL 01/10/2018 Comp Metabolic Aay111 Creat 0.8 mg/dL 01/10/2018 Comp Metabolic Rfk522 eGFR 74 ml/min/1.73m2 01/10/2018 Comp Metabolic Xbi649 BUN 16 mg/dL 01/10/2018 Comp Metabolic Ehb576 B/C Ratio 20.3 Ratio 01/10/2018 Comp Metabolic Svs889 CALCIUM 9.8 mg/dL 01/10/2018 Comp Metabolic Onz739 ALK PHOS 117 U/L 01/10/2018 Comp Metabolic Qtq240 AST(SGOT) 12 U/L 01/10/2018 Comp Metabolic Dpj303 ALT(SGPT) 11 U/L 01/10/2018 Comp Metabolic Pqx450 BILI T 1.1 mg/dL 01/10/2018 Comp Metabolic Yrh645 ALBUMIN 4.4 g/dL 01/10/2018 Comp Metabolic Oaa374 TPRO 6.5 g/dL 01/10/2018 Comp Metabolic Ymv341 GLOB 2.1 g/dL 01/10/2018 Comp Metabolic Nqj140 A/G Ratio 2.1 Ratio 01/10/2018 Comp Metabolic Lil005 Osmo 269 mOsmo 01/10/2018 Cbc With Differential Ord2 WBC 7.89 K/ul 01/10/2018 Cbc With Differential Ord2 RBC 4.89 M/ul 01/10/2018 Cbc With Differential Ord2 HGB 12.3 g/dl 01/10/2018 Cbc With Differential Ord2 Neut% 68.3 % 01/10/2018 Cbc With Differential Ord2 HCT 38.3 % 01/10/2018 Cbc With Differential Ord2 Lymph% 19.5 % 01/10/2018 Cbc With Differential Ord2 MCV 78.3 fl 01/10/2018 Cbc With Differential Ord2 MCH 25.2 pg 01/10/2018 Cbc With Differential Ord2 [place]% 8.6 % 01/10/2018 Cbc With Differential Ord2 Eos% 3.2 % 01/10/2018 Cbc With Differential Ord2 MCHC 32.1 pg 01/10/2018 Cbc With Differential Ord2 PLT 277 K/ul 01/10/2018 Cbc With Differential Ord2 Baso% 0.4 % 01/10/2018 Cbc With Differential Ord2 Neut ABS# 5.39 K/ul 01/10/2018 Cbc With Differential Ord2 RDW 15.6 % 01/10/2018 Cbc With Differential Ord2 Lymph ABS# 1.54 K/ul 01/10/2018 Cbc With Differential Ord2 [place] ABS# 0.7 K/ul 01/10/2018 Cbc With Differential Ord2 Eos ABS# 0.3 K/ul 01/10/2018 Cbc With Differential Ord2 Baso ABS# 0.0 K/ul 01/10/2018 Tsh Ord6 hTSH II 1.10 uIU/mL 04/05/2017 Comp Metabolic Jgw248 NA 138 mEq/L 04/05/2017 Comp Metabolic Dtv908 K 3.8 mEq/L 04/05/2017 Comp Metabolic Vjk136 CL 98 mEq/L 04/05/2017 Comp Metabolic Jbr154 CO2 31.0 mEq/L 04/05/2017 Comp Metabolic Sag280 ANION GAP 13 04/05/2017 Comp Metabolic Qbc711 GLUCOSE 83 mg/dL 04/05/2017 Comp Metabolic Zbz789 Creat 0.9 mg/dL 04/05/2017 Comp Metabolic Msa624 eGFR 64 ml/min/1.73m2 04/05/2017 Comp Metabolic Tvm861 BUN 11 mg/dL 04/05/2017 Comp Metabolic Cde113 B/C Ratio 12.2 Ratio 04/05/2017 Comp Metabolic Oxy376 CALCIUM 8.9 mg/dL 04/05/2017 Comp Metabolic Tdv835 ALK PHOS 58 U/L 04/05/2017 Comp Metabolic Ptn104 AST(SGOT) 15 U/L 04/05/2017 Comp Metabolic Nbl868 ALT(SGPT) 14 U/L 04/05/2017 Comp Metabolic Mav640 BILI T 0.9 mg/dL 04/05/2017 Comp Metabolic Vvv335 ALBUMIN 4.1 g/dL 04/05/2017 Comp Metabolic Iak571 TPRO 6.2 g/dL 04/05/2017 Comp Metabolic Ddh471 GLOB 2.2 g/dL 04/05/2017 Comp Metabolic Ohe593 A/G Ratio 1.9 Ratio 04/05/2017 Comp Metabolic Ejb727 Osmo 274 mOsmo 04/05/2017 Cbc With Differential Ord2 WBC 6.03 K/ul 04/05/2017 Cbc With Differential Ord2 RBC 4.78 M/ul 04/05/2017 Cbc With Differential Ord2 HGB 11.8 g/dl 04/05/2017 Cbc With Differential Ord2 Neut% 66.1 % 04/05/2017 Cbc With Differential Ord2 HCT 36.8 % 04/05/2017 Cbc With Differential Ord2 MCV 77.0 fl 04/05/2017 Cbc With Differential Ord2 Lymph% 21.2 % 04/05/2017 Cbc With Differential Ord2 [place]% 8.3 % 04/05/2017 Cbc With Differential Ord2 MCH 24.7 pg 04/05/2017 Cbc With Differential Ord2 Eos% 3.6 % 04/05/2017 Cbc With Differential Ord2 MCHC 32.1 pg 04/05/2017 Cbc With Differential Ord2 Baso% 0.8 % 04/05/2017 Cbc With Differential Ord2 PLT 279 K/ul 04/05/2017 Cbc With Differential Ord2 RDW 17.3 % 04/05/2017 Cbc With Differential Ord2 Neut ABS# 3.98 K/ul 04/05/2017 Cbc With Differential Ord2 Lymph ABS# 1.28 K/ul 04/05/2017 Cbc With Differential Ord2 [place] ABS# 0.5 K/ul 04/05/2017 Cbc With Differential Ord2 Eos ABS# 0.2 K/ul 04/05/2017 Cbc With Differential Ord2 Baso ABS# 0.1 K/ul 04/05/2017 Metabolic Ord15 NA 133 mEq/L 08/27/2016 Metabolic Ord15 K 3.8 mEq/L 08/27/2016 Metabolic Ord15 CL 95 mEq/L 08/27/2016 Metabolic Ord15 CO2 33.0 mEq/L 08/27/2016 Metabolic Ord15 GLUCOSE 77 mg/dL 08/27/2016 Metabolic Ord15 BUN 18 mg/dL 08/27/2016 Metabolic Ord15 Creat 0.8 mg/dL 08/27/2016 Metabolic Ord15 B/C Ratio 21.7 Ratio 08/27/2016 Metabolic Ord15 eGFR 70 ml/min/1.73m2 08/27/2016 Metabolic Ord15 Osmo 267 mOsmo 08/27/2016 Metabolic Ord15 ANION GAP 9 08/27/2016 Metabolic Ord15 CALCIUM 9.3 mg/dL 08/27/2016 Comp Metabolic Jzc544 NA 138 mEq/L 10/11/2015 Comp Metabolic Xwl538 K 3.8 mEq/L 10/11/2015 Comp Metabolic Plb772 CL 98 mEq/L 10/11/2015 Comp Metabolic Rqv369 CO2 29.0 mEq/L 10/11/2015 Comp Metabolic Amg818 ANION GAP 15 10/11/2015 Comp Metabolic Skg784 GLUCOSE 76 mg/dL 10/11/2015 Comp Metabolic Rhb019 Creat 0.9 mg/dL 10/11/2015 Comp Metabolic Jcw655 eGFR 68 ml/min/1.73m2 10/11/2015 Comp Metabolic Bec839 BUN 14 mg/dL 10/11/2015 Comp Metabolic Geh873 B/C Ratio 16.3 Ratio 10/11/2015 Comp Metabolic Lad118 CALCIUM 9.7 mg/dL 10/11/2015 Comp Metabolic Xfv261 ALK PHOS 73 U/L 10/11/2015 Comp Metabolic Cwp311 AST(SGOT) 16 U/L 10/11/2015 Comp Metabolic Oev139 ALT(SGPT) 14 U/L 10/11/2015 Comp Metabolic Ulu890 BILI T 0.8 mg/dL 10/11/2015 Comp Metabolic Lip462 ALBUMIN 4.6 g/dL 10/11/2015 Comp Metabolic Ani299 TPRO 7.1 g/dL 10/11/2015 Comp Metabolic Vtl490 GLOB 2.5 g/dL 10/11/2015 Comp Metabolic Yiz731 A/G Ratio 1.8 Ratio 10/11/2015 Comp Metabolic Dtu121 Osmo 275 mOsmo 10/11/2015 Cbc With Differential Ord2 WBC 7.6 K/uL 10/11/2015 Cbc With Differential Ord2 LYM 2.0 K/uL 10/11/2015 Cbc With Differential Ord2 LYM% 26.6 % 10/11/2015 Cbc With Differential Ord2 NEUT/GRAN 5.0 K/uL 10/11/2015 Cbc With Differential Ord2 NEUT/GRAN % 65.6 % 10/11/2015 Cbc With Differential Ord2 MID 0.6 K/uL 10/11/2015 Cbc With Differential Ord2 MID% 7.8 % 10/11/2015 Cbc With Differential Ord2 RBC 4.90 M/uL 10/11/2015 Cbc With Differential Ord2 HGB 12.3 g/dL 10/11/2015 Cbc With Differential Ord2 HCT 39.7 % 10/11/2015 Cbc With Differential Ord2 MCV 81 fL 10/11/2015 Cbc With Differential Ord2 MCH 25 pg 10/11/2015 Cbc With Differential Ord2 MCHC 31 g/dL 10/11/2015 Cbc With Differential Ord2 PLT 287 K/uL 10/11/2015 Cbc With Differential Ord2 RDW 16.5 % 10/11/2015 Tsh Ord6 hTSH II 1.70 uIU/mL 10/11/2015 Comp Metabolic Fjw514 NA 130 mEq/L 08/09/2015 Comp Metabolic Woe305 K 3.6 mEq/L 08/09/2015 Comp Metabolic Eqw302 CL 94 mEq/L 08/09/2015 Comp Metabolic Jbp808 CO2 30.0 mEq/L 08/09/2015 Comp Metabolic Dmz979 ANION GAP 10 08/09/2015 Comp Metabolic Fel211 GLUCOSE 156 mg/dL 08/09/2015 Comp Metabolic Yod023 Creat 0.9 mg/dL 08/09/2015 Comp Metabolic Fwk850 eGFR 67 ml/min/1.73m2 08/09/2015 Comp Metabolic Wbf131 BUN 23 mg/dL 08/09/2015 Comp Metabolic Ali871 B/C Ratio 26.4 Ratio 08/09/2015 Comp Metabolic Xht773 CALCIUM 9.6 mg/dL 08/09/2015 Comp Metabolic Oex324 ALK PHOS 95 U/L 08/09/2015 Comp Metabolic Bgp535 AST(SGOT) 12 U/L 08/09/2015 Comp Metabolic Tsb409 ALT(SGPT) 12 U/L 08/09/2015 Comp Metabolic Lhj160 BILI T 0.7 mg/dL 08/09/2015 Comp Metabolic Wvy087 ALBUMIN 4.1 g/dL 08/09/2015 Comp Metabolic Vtf443 TPRO 6.4 g/dL 08/09/2015 Comp Metabolic Cgz022 GLOB 2.3 g/dL 08/09/2015 Comp Metabolic Wbk469 A/G Ratio 1.8 Ratio 08/09/2015 Comp Metabolic Oqc464 Osmo 268 mOsmo 08/09/2015 Cbc With Differential Ord2 WBC 8.3 K/uL 08/09/2015 Cbc With Differential Ord2 LYM 1.6 K/uL 08/09/2015 Cbc With Differential Ord2 LYM% 19.4 % 08/09/2015 Cbc With Differential Ord2 NEUT/GRAN 6.0 K/uL 08/09/2015 Cbc With Differential Ord2 NEUT/GRAN % 72.2 % 08/09/2015 Cbc With Differential Ord2 MID 0.7 K/uL 08/09/2015 Cbc With Differential Ord2 MID% 8.4 % 08/09/2015 Cbc With Differential Ord2 RBC 3.85 M/uL 08/09/2015 Cbc With Differential Ord2 HGB 10.5 g/dL 08/09/2015 Cbc With Differential Ord2 HCT 33.8 % 08/09/2015 Cbc With Differential Ord2 MCV 88 fL 08/09/2015 Cbc With Differential Ord2 MCH 27 pg 08/09/2015 Cbc With Differential Ord2 MCHC 31 g/dL 08/09/2015 Cbc With Differential Ord2 PLT 465 K/uL 08/09/2015 Cbc With Differential Ord2 RDW 14.0 % 08/09/2015 CHEM 14 [id number] AST 14 U/L 12/25/2013 CHEM 14 [id number] ALT 17 IU/L 12/25/2013 CHEM 14 [id number] BUN 8 MG/DL 12/25/2013 CHEM 14 [id number] ALBUMIN 4.1 GM/DL 12/25/2013 CHEM 14 3973599 CHLORIDE 98 MMOL/L 12/25/2013 CHEM 14 [id number] BILI TOT 0.9 MG/DL 12/25/2013 CHEM 14 [id number] ALK PHOS 55 U/L 12/25/2013 CHEM 14 [id number] SODIUM 133 MMOL/L 12/25/2013 CHEM 14 4162709 CREATININE 0.86 MG/DL 12/25/2013 CHEM 14 0106762 CALCIUM 9.2 MG/DL 12/25/2013 CHEM 14 [id number] POTASSIUM 3.9 MMOL/L 12/25/2013 CHEM 14 6281697 PROT TOT 6.1 GM/DL 12/25/2013 CHEM 14 7780777 GLUCOSE 95 MG/DL 12/25/2013 CHEM 14 4232240 BICARB 29 MMOL/L 12/25/2013 CHEM 14 2679740 ANION GAP 6 MEQ/L 12/25/2013 GFR CALC 1340432 GFR AA >60 ML/MIN 12/25/2013 GFR CALC 9730819 GFR NON-AA >60 ML/MIN 12/25/2013 LIPASE 1484502 LIPASE 17 IU/L 12/05/2013 AMYLASE 2544491 AMYLASE 49 IU/L 12/05/2013 CHEM 14 0845796 AST 16 U/L 12/04/2013 CHEM 14 8282505 ALT 14 IU/L 12/04/2013 CHEM 14 3810817 BUN 18 MG/DL 12/04/2013 CHEM 14 7915795 ALBUMIN 4.6 GM/DL 12/04/2013 CHEM 14 0074108 CHLORIDE 99 MMOL/L 12/04/2013 CHEM 14 4138133 BILI TOT 1.5 MG/DL 12/04/2013 CHEM 14 3536172 ALK PHOS 60 U/L 12/04/2013 CHEM 14 6725082 SODIUM 134 MMOL/L 12/04/2013 CHEM 14 1345987 CREATININE 0.92 MG/DL 12/04/2013 CHEM 14 8241136 CALCIUM 9.7 MG/DL 12/04/2013 CHEM 14 8618208 POTASSIUM 3.4 MMOL/L 12/04/2013 CHEM 14 1845496 PROT TOT 6.9 GM/DL 12/04/2013 CHEM 14 2521448 GLUCOSE 105 MG/DL 12/04/2013 CHEM 14 1005121 BICARB 27 MMOL/L 12/04/2013 CHEM 14 9079787 ANION GAP 8 MEQ/L 12/04/2013 GFR CALC 6681187 GFR AA >60 ML/MIN 12/04/2013 GFR CALC GFR NON-AA 59.0L ML/MIN 12/04/2013 URINALYSIS NONAUTO W/O SCOPE 70135 Specific [place] 1.015 DateTime(Free Text in Aprima) URINALYSIS NONAUTO W/O SCOPE 50534 PH 6.0 DateTime(Free Text in Aprima) URINALYSIS NONAUTO W/O SCOPE 16455 GLUCOSE neg DateTime( Free Text in Apr[employer]) URINALYSIS NONAUTO W/O SCOPE 11747 Protein neg DateTime( Free Text in Apr[employer]) URINALYSIS NONAUTO W/O SCOPE 20388 Blood neg DateTime(Free Text in Aprima) URINALYSIS NONAUTO W/O SCOPE 25221 Bilirubin neg DateTime(Free Text in Aprima) URINALYSIS NONAUTO W/O SCOPE 41581 Ketones neg DateTime( Free Text in Aprima) URINALYSIS NONAUTO W/O SCOPE 53230 Urobilinogen neg DateTime(Free Text in Aprima) URINALYSIS NONAUTO W/O SCOPE 75954 Nitrite 2+ DateTime( Free Text in Aprima) URINALYSIS NONAUTO W/O SCOPE 15107 Leukocytes DateTime( Free Text in Aprima) Review of Systems System Result Effective Dates Constitutional No recent illness 2018 Constitutional No anorexia 12/05/2018 Constitutional No night sweats 2018 Constitutional No chills 12/05/2018 Constitutional No diaphoresis 12/05/2018 Constitutional fatigue 12/05/2018 Constitutional insomnia 12/05/2018 Constitutional No fever 12/05/2018 Constitutional No malaise 12/05/2018 Constitutional No weight loss 12/05/2018 Constitutional No weight gain 12/05/2018 Eyes No eye discharge 12/05/2018 Eyes No eye erythema 12/05/2018 Ears/Nose/Throat/Neck No dizziness 2018 Ears/Nose/Throat/Neck headache 2018 Ears/Nose/Throat/Neck nasal allergies 01/2019 Ears/Nose/Throat/Neck postnasal drip 01/2019 Cardiovascular No chest pain/pressure 01/2019 Respiratory No cough 12/05/2018 Respiratory No productive sputum 2018 Gastrointestinal No constipation 2018 Gastrointestinal No diarrhea 12/05/2018 Genitourinary/Nephrology No dysuria 12/05 Musculoskeletal back pain 12/05/2018 Dermatologic No rash 12/05/2018 Neurologic No alteration of consciousness 12/05/2018 Psychiatric No anxiety 12/05/2018 Endocrine dry or coarse skin 12/05/2018 Hematologic/Lymphatic No abnormal ecchymoses 12/05/2018 Constitutional No recent illness 2017 Constitutional No chills 08/02/2018 Constitutional No diaphoresis 08/02/2018 Constitutional No fever 08/02/2018 Eyes No blindness 08/02/2018 Ears/Nose/Throat/Neck No dizziness 2017 Ears/Nose/Throat/Neck No nasal allergies 08/02/2018 Ears/Nose/Throat/Neck nasal discharge 12/2017 Ears/Nose/Throat/Neck tinnitus 2017 Cardiovascular No chest pain/pressure 12/2017 Cardiovascular No dyspnea 08/02/2018 Respiratory No chest congestion 2017 Respiratory No cough 08/02/2018 Gastrointestinal No abdominal pain 2017 Gastrointestinal No constipation 2017 Gastrointestinal No diarrhea 08/02/2018 Genitourinary/Nephrology nocturia 2017 Neurologic No alteration of consciousness 08/02/2018 Neurologic No mental status change 2017 Musculoskeletal joint complaint 2017 Dermatologic No rash 08/02/2018 Dermatologic skin lesion 08/02/2018 Psychiatric No anxiety 08/02/2018 Psychiatric No depression 08/02/2018 Constitutional No recent illness 2017 Constitutional No chills 04/08/2018 Constitutional No diaphoresis 04/08/2018 Constitutional No fever 04/08/2018 Eyes No blindness 04/08/2018 Ears/Nose/Throat/Neck No dizziness 2017 Ears/Nose/Throat/Neck No nasal allergies 04/08/2018 Ears/Nose/Throat/Neck nasal discharge 06/2018 Cardiovascular No chest pain/pressure 06/2018 Cardiovascular No dyspnea 04/08/2018 Respiratory No chest congestion 2017 Respiratory No cough 04/08/2018 Gastrointestinal No abdominal pain 2017 Gastrointestinal No constipation 2017 Gastrointestinal No diarrhea 04/08/2018 Genitourinary/Nephrology nocturia 2017 Neurologic No alteration of consciousness 04/08/2018 Neurologic No mental status change 2017 Musculoskeletal joint complaint 2017 Dermatologic No rash 04/08/2018 Constitutional No recent illness 2017 Constitutional No chills 01/31/2018 Constitutional No diaphoresis 01/31/2018 Constitutional No fever 01/31/2018 Eyes No blindness 01/31/2018 Ears/Nose/Throat/Neck No dizziness 2017 Ears/Nose/Throat/Neck No nasal allergies 01/31/2018 Ears/Nose/Throat/Neck nasal discharge 12/2017 Ears/Nose/Throat/Neck tinnitus 2017 Cardiovascular No chest pain/pressure 12/2017 Cardiovascular No dyspnea 01/31/2018 Respiratory No chest congestion 2017 Respiratory No cough 01/31/2018 Gastrointestinal No abdominal pain 2017 Gastrointestinal No constipation 2017 Gastrointestinal No diarrhea 01/31/2018 Genitourinary/Nephrology nocturia 2017 Neurologic No alteration of consciousness 01/31/2018 Neurologic No mental status change 2017 Constitutional No recent illness 2017 Constitutional No chills 01/10/2018 Constitutional No diaphoresis 01/10/2018 Constitutional No fever 01/10/2018 Eyes No blindness 01/10/2018 Ears/Nose/Throat/Neck No nasal allergies 01/10/2018 Ears/Nose/Throat/Neck nasal discharge 10/2018 Cardiovascular No chest pain/pressure 10/2018 Cardiovascular No dyspnea 01/10/2018 Respiratory No chest congestion 2017 Respiratory No cough 01/10/2018 Gastrointestinal No abdominal pain 2017 Gastrointestinal No constipation 2017 Gastrointestinal No diarrhea 01/10/2018 Genitourinary/Nephrology nocturia 2017 Neurologic No alteration of consciousness 01/10/2018 Neurologic No mental status change 2017 Ears/Nose/Throat/Neck No dizziness 2017 Ears/Nose/Throat/Neck tinnitus 2017 Constitutional No recent illness 2017 Constitutional No chills 12/21/2017 Constitutional No diaphoresis 12/21/2017 Constitutional No fever 12/21/2017 Eyes No eye erythema 12/21/2017 Ears/Nose/Throat/Neck No nasal discharge 12/21/2017 Ears/Nose/Throat/Neck No nasal allergies 12/21/2017 Cardiovascular No chest pain/pressure Cardiovascular No dyspnea 12/21/2017 Respiratory No cough 12/21/2017 Respiratory No chest congestion 2017 Gastrointestinal No abdominal pain 2017 Gastrointestinal No diarrhea 12/21/2017 Gastrointestinal No constipation 2017 Genitourinary/Nephrology nocturia 2017 Neurologic No alteration of consciousness 12/21/2017 Neurologic No mental status change 2017 Constitutional recent illness 12/03/2017 Constitutional No chills 12/03/2017 Constitutional No diaphoresis 12/03/2017 Constitutional No fever 12/03/2017 Eyes No eye erythema 12/03/2017 Constitutional No malaise 12/03/2017 Ears/Nose/Throat/Neck No nasal discharge 12/03/2017 Ears/Nose/Throat/Neck No nasal allergies 12/03/2017 Cardiovascular No chest pain/pressure 12/2017 Cardiovascular No dyspnea 12/03/2017 Respiratory No cough 12/03/2017 Respiratory No chest congestion 2017 Gastrointestinal No abdominal pain 2017 Gastrointestinal No constipation 2017 Gastrointestinal No diarrhea 12/03/2017 Gastrointestinal No vomiting 12/03/2017 Gastrointestinal No nausea 12/03/2017 Gastrointestinal No melena 12/03/2017 Gastrointestinal No hematochezia 2017 Genitourinary/Nephrology dysuria 2017 Genitourinary/Nephrology urinary urgency 12/03/2017 Genitourinary/Nephrology urinary incontinence 12/03/2017 Genitourinary/Nephrology urinary frequency 12/03/2017 Musculoskeletal joint complaint 2017 Dermatologic No rash 12/03/2017 Neurologic No alteration of consciousness 12/03/2017 Neurologic No mental status change 2017 Constitutional No recent illness 2016 Constitutional No chills 10/11/2017 Constitutional No diaphoresis 10/11/2017 Constitutional No fever 10/11/2017 Eyes No eye erythema 10/11/2017 Ears/Nose/Throat/Neck No nasal discharge 10/11/2017 Ears/Nose/Throat/Neck No nasal allergies 10/11/2017 Cardiovascular No chest pain/pressure 09/2017 Cardiovascular No dyspnea 10/11/2017 Respiratory No cough 10/11/2017 Respiratory No chest congestion 2016 Dermatologic rash 10/11/2017 Neurologic No alteration of consciousness 10/11/2017 Neurologic No mental status change 2016 Constitutional No recent illness 2016 Constitutional No anorexia 08/03/2017 Constitutional No night sweats 2016 Constitutional No chills 08/03/2017 Constitutional No diaphoresis 08/03/2017 Constitutional No fatigue 08/03/2017 Constitutional No fever 08/03/2017 Constitutional No insomnia 08/03/2017 Constitutional No malaise 08/03/2017 Constitutional No weight loss 08/03/2017 Constitutional No weight gain 08/03/2017 Eyes No eye discharge 08/03/2017 Eyes No eye erythema 08/03/2017 Ears/Nose/Throat/Neck No dizziness 2016 Ears/Nose/Throat/Neck No headache 2016 Ears/Nose/Throat/Neck nasal allergies 12/2016 Cardiovascular No chest pain/pressure 12/2016 Cardiovascular No dyspnea 08/03/2017 Respiratory No cough 08/03/2017 Gastrointestinal No abdominal pain 2016 Gastrointestinal No constipation 2016 Gastrointestinal No diarrhea 08/03/2017 Gastrointestinal No nausea 08/03/2017 Gastrointestinal No vomiting 08/03/2017 Genitourinary/Nephrology No dysuria 08/03 Musculoskeletal No joint complaint 2016 Neurologic No alteration of consciousness 08/03/2017 Constitutional No recent illness 2016 Constitutional No anorexia 08/02/2017 Constitutional No night sweats 2016 Constitutional No chills 08/02/2017 Constitutional No diaphoresis 08/02/2017 Constitutional No fatigue 08/02/2017 Constitutional No fever 08/02/2017 Constitutional No insomnia 08/02/2017 Constitutional No malaise 08/02/2017 Constitutional No weight loss 08/02/2017 Constitutional No weight gain 08/02/2017 Eyes No eye discharge 08/02/2017 Eyes No eye erythema 08/02/2017 Ears/Nose/Throat/Neck No dizziness 2016 Ears/Nose/Throat/Neck No headache 2016 Ears/Nose/Throat/Neck nasal allergies 12/2016 Cardiovascular No chest pain/pressure 12/2016 Cardiovascular No dyspnea 08/02/2017 Respiratory No cough 08/02/2017 Gastrointestinal No abdominal pain 2016 Gastrointestinal No constipation 2016 Gastrointestinal No nausea 08/02/2017 Gastrointestinal No vomiting 08/02/2017 Genitourinary/Nephrology No dysuria 08/02 Musculoskeletal No joint complaint 2016 Neurologic No alteration of consciousness 08/02/2017 Gastrointestinal No diarrhea 08/02/2017 Constitutional recent illness 07/12/2017 Constitutional No chills 07/12/2017 Constitutional No diaphoresis 07/12/2017 Constitutional No fever 07/12/2017 Eyes No eye erythema 07/12/2017 Ears/Nose/Throat/Neck nasal allergies 09/2017 Ears/Nose/Throat/Neck nasal discharge 09/2017 Ears/Nose/Throat/Neck postnasal drip 09/2017 Ears/Nose/Throat/Neck sinus congestion Ears/Nose/Throat/Neck No sore throat 09/2017 Cardiovascular No chest pain/pressure 09/2017 Cardiovascular No dyspnea 07/12/2017 Respiratory No chest congestion 2016 Respiratory cough 07/12/2017 Respiratory No dyspnea 07/12/2017 Gastrointestinal No abdominal pain 2016 Gastrointestinal No constipation 2016 Gastrointestinal No diarrhea 07/12/2017 Gastrointestinal No nausea 07/12/2017 Gastrointestinal No vomiting 07/12/2017 Dermatologic No rash 07/12/2017 Neurologic No alteration of consciousness 07/12/2017 Neurologic No mental status change 2016 Respiratory wheezing 07/12/2017 Constitutional No recent illness 2016 Constitutional No anorexia 06/29/2017 Constitutional No night sweats 2016 Constitutional No chills 06/29/2017 Constitutional No diaphoresis 06/29/2017 Constitutional No fatigue 06/29/2017 Constitutional No fever 06/29/2017 Constitutional No insomnia 06/29/2017 Constitutional No malaise 06/29/2017 Constitutional No weight loss 06/29/2017 Constitutional No weight gain 06/29/2017 Eyes No eye discharge 06/29/2017 Eyes No eye erythema 06/29/2017 Ears/Nose/Throat/Neck No dizziness 2016 Ears/Nose/Throat/Neck No headache 2016 Ears/Nose/Throat/Neck nasal allergies Cardiovascular No chest pain/pressure Cardiovascular No dyspnea 06/29/2017 Respiratory No cough 06/29/2017 Gastrointestinal No abdominal pain 2016 Gastrointestinal No constipation 2016 Gastrointestinal diarrhea 06/29/2017 Gastrointestinal nausea 06/29/2017 Gastrointestinal No vomiting 06/29/2017 Genitourinary/Nephrology No dysuria 06/29 Musculoskeletal No joint complaint 2016 Neurologic No alteration of consciousness 06/29/2017 Constitutional No recent illness 2016 Constitutional No anorexia 06/14/2017 Constitutional No night sweats 2016 Constitutional No chills 06/14/2017 Constitutional No diaphoresis 06/14/2017 Constitutional No fatigue 06/14/2017 Constitutional No fever 06/14/2017 Constitutional No insomnia 06/14/2017 Constitutional No malaise 06/14/2017 Constitutional No weight loss 06/14/2017 Constitutional No weight gain 06/14/2017 Eyes No eye discharge 06/14/2017 Eyes No eye erythema 06/14/2017 Ears/Nose/Throat/Neck No dizziness 2016 Ears/Nose/Throat/Neck No headache 2016 Ears/Nose/Throat/Neck nasal allergies Cardiovascular No chest pain/pressure Cardiovascular No dyspnea 06/14/2017 Respiratory No cough 06/14/2017 Gastrointestinal No abdominal pain 2016 Gastrointestinal No constipation 2016 Gastrointestinal diarrhea 06/14/2017 Gastrointestinal No vomiting 06/14/2017 Genitourinary/Nephrology No dysuria 06/14 Musculoskeletal No joint complaint 2016 Neurologic No alteration of consciousness 06/14/2017 Gastrointestinal nausea 06/14/2017 Gastrointestinal No abdominal pain 2016 Gastrointestinal No constipation 2016 Gastrointestinal diarrhea 04/05/2017 Gastrointestinal No vomiting 04/05/2017 Constitutional No recent illness 2016 Constitutional No anorexia 04/05/2017 Constitutional No chills 04/05/2017 Constitutional No night sweats 2016 Constitutional No diaphoresis 04/05/2017 Constitutional No fatigue 04/05/2017 Constitutional No fever 04/05/2017 Constitutional No insomnia 04/05/2017 Constitutional No malaise 04/05/2017 Constitutional No weight loss 04/05/2017 Constitutional No weight gain 04/05/2017 Eyes No eye discharge 04/05/2017 Eyes No eye erythema 04/05/2017 Ears/Nose/Throat/Neck No dizziness 2016 Ears/Nose/Throat/Neck No headache 2016 Cardiovascular No chest pain/pressure 03/2017 Cardiovascular No dyspnea 04/05/2017 Respiratory No cough 04/05/2017 Genitourinary/Nephrology No dysuria 04/05 Ears/Nose/Throat/Neck nasal allergies 03/2017 Ears/Nose/Throat/Neck nasal discharge 03/2017 Musculoskeletal No joint complaint 2016 Dermatologic rash 04/05/2017 Neurologic No alteration of consciousness 04/05/2017 Constitutional recent illness 01/19/2017 Constitutional No anorexia 01/19/2017 Constitutional No night sweats 2016 Constitutional No chills 01/19/2017 Constitutional No diaphoresis 01/19/2017 Constitutional fatigue 01/19/2017 Constitutional No fever 01/19/2017 Constitutional No insomnia 01/19/2017 Constitutional No malaise 01/19/2017 Eyes No eye discharge 01/19/2017 Eyes No eye erythema 01/19/2017 Ears/Nose/Throat/Neck No dizziness 2016 Ears/Nose/Throat/Neck No headache 2016 Cardiovascular No chest pain/pressure Cardiovascular No dyspnea 01/19/2017 Cardiovascular No edema 01/19/2017 Respiratory No productive sputum 2016 Respiratory No cough 01/19/2017 Gastrointestinal No abdominal pain 2016 Gastrointestinal No constipation 2016 Gastrointestinal diarrhea 01/19/2017 Gastrointestinal nausea 01/19/2017 Gastrointestinal No vomiting 01/19/2017 Genitourinary/Nephrology No dysuria 01/19 Musculoskeletal No back pain 01/19/2017 Dermatologic No rash 01/19/2017 Neurologic No alteration of consciousness 01/19/2017 Constitutional recent illness 10/05/2016 Constitutional No anorexia 10/05/2016 Constitutional No night sweats 2015 Constitutional No chills 10/05/2016 Constitutional No diaphoresis 10/05/2016 Constitutional fatigue 10/05/2016 Constitutional No fever 10/05/2016 Constitutional No insomnia 10/05/2016 Constitutional No malaise 10/05/2016 Constitutional No weight loss 10/05/2016 Constitutional No weight gain 10/05/2016 Eyes No eye discharge 10/05/2016 Eyes No eye erythema 10/05/2016 Ears/Nose/Throat/Neck nasal allergies 03/2016 Ears/Nose/Throat/Neck nasal discharge 03/2016 Ears/Nose/Throat/Neck No dizziness 2015 Ears/Nose/Throat/Neck headache 2015 Ears/Nose/Throat/Neck No otalgia 2015 Ears/Nose/Throat/Neck sinus congestion Respiratory cough 10/05/2016 Respiratory No productive sputum 2015 Cardiovascular No chest pain/pressure 03/2016 Gastrointestinal No abdominal pain 2015 Genitourinary/Nephrology No dysuria 10/05 Musculoskeletal joint complaint 2015 Dermatologic No rash 10/05/2016 Neurologic No alteration of consciousness 10/05/2016 Gastrointestinal gas and bloating 2015 Gastrointestinal gastroesophageal reflux 04/14/2016 Gastrointestinal No constipation 2015 Gastrointestinal No diarrhea 04/14/2016 Gastrointestinal abdominal pain 2015 Constitutional recent illness 04/14/2016 Constitutional No anorexia 04/14/2016 Constitutional No night sweats 2015 Constitutional No chills 04/14/2016 Constitutional No diaphoresis 04/14/2016 Constitutional fatigue 04/14/2016 Constitutional No fever 04/14/2016 Constitutional No insomnia 04/14/2016 Constitutional No malaise 04/14/2016 Constitutional No weight loss 04/14/2016 Constitutional No weight gain 04/14/2016 Constitutional No obesity 04/14/2016 Ears/Nose/Throat/Neck nasal discharge Ears/Nose/Throat/Neck nasal allergies Ears/Nose/Throat/Neck headache 2015 Ears/Nose/Throat/Neck No dizziness 2015 Ears/Nose/Throat/Neck No otalgia 2015 Ears/Nose/Throat/Neck No otitis media Respiratory No cough 04/14/2016 Respiratory No cigarette smoking 2015 Respiratory No chest tightness 2015 Respiratory No chest congestion 2015 Respiratory No dyspnea 04/14/2016 Respiratory No dyspnea on exertion 2015 Cardiovascular No chest pain/pressure Cardiovascular No dyspnea 04/14/2016 Cardiovascular No edema 04/14/2016 Eyes No eye discharge 04/14/2016 Eyes No eye erythema 04/14/2016 Eyes No vision change 04/14/2016 Genitourinary/Nephrology No dysuria 04/14 Dermatologic No rash 04/14/2016 Dermatologic No sores 04/14/2016 Musculoskeletal No muscle weakness 2015 Musculoskeletal No joint complaint 2015 Musculoskeletal No myalgias 04/14/2016 Psychiatric No depression 04/14/2016 Psychiatric No anxiety 04/14/2016 Psychiatric disturbances of memory 2015 Constitutional No recent illness 2015 Constitutional No anorexia 01/13/2016 Constitutional No night sweats 2015 Constitutional No chills 01/13/2016 Constitutional No diaphoresis 01/13/2016 Constitutional No fatigue 01/13/2016 Constitutional No fever 01/13/2016 Constitutional No insomnia 01/13/2016 Constitutional No malaise 01/13/2016 Constitutional No weight loss 01/13/2016 Constitutional No weight gain 01/13/2016 Eyes No eye discharge 01/13/2016 Eyes No eye erythema 01/13/2016 Ears/Nose/Throat/Neck No dizziness 2015 Ears/Nose/Throat/Neck No headache 2015 Cardiovascular No chest pain/pressure Cardiovascular No dyspnea 01/13/2016 Cardiovascular No edema 01/13/2016 Respiratory No productive sputum 2015 Respiratory No cough 01/13/2016 Gastrointestinal No abdominal pain 2015 Gastrointestinal No constipation 2015 Gastrointestinal No diarrhea 01/13/2016 Gastrointestinal No nausea 01/13/2016 Gastrointestinal No vomiting 01/13/2016 Genitourinary/Nephrology No dysuria 01/12 Dermatologic No rash 01/13/2016 Neurologic No alteration of consciousness 01/13/2016 Musculoskeletal No back pain 01/13/2016 Gastrointestinal No abdominal pain 2014 Gastrointestinal No constipation 2014 Gastrointestinal No diarrhea 10/11/2015 Musculoskeletal back pain 10/11/2015 Constitutional No recent illness 2014 Constitutional No anorexia 10/11/2015 Constitutional No night sweats 2014 Constitutional No chills 10/11/2015 Constitutional No diaphoresis 10/11/2015 Constitutional No fever 10/11/2015 Constitutional No fatigue 10/11/2015 Constitutional No insomnia 10/11/2015 Constitutional No malaise 10/11/2015 Constitutional No weight loss 10/11/2015 Constitutional No weight gain 10/11/2015 Eyes No eye discharge 10/11/2015 Eyes No eye erythema 10/11/2015 Cardiovascular No chest pain/pressure 09/2015 Cardiovascular No dyspnea 10/11/2015 Cardiovascular No edema 10/11/2015 Respiratory No productive sputum 2014 Respiratory No cough 10/11/2015 Gastrointestinal No nausea 10/11/2015 Gastrointestinal No vomiting 10/11/2015 Genitourinary/Nephrology No dysuria 10/11 Ears/Nose/Throat/Neck No dizziness 2014 Ears/Nose/Throat/Neck No headache 2014 Dermatologic No rash 10/11/2015 Neurologic No alteration of consciousness 10/11/2015 Constitutional No recent illness 2014 Constitutional No anorexia 08/09/2015 Constitutional No night sweats 2014 Constitutional No chills 08/09/2015 Constitutional No diaphoresis 08/09/2015 Constitutional No fatigue 08/09/2015 Constitutional No fever 08/09/2015 Constitutional No insomnia 08/09/2015 Constitutional No malaise 08/09/2015 Constitutional No weight loss 08/09/2015 Constitutional No weight gain 08/09/2015 Eyes No eye discharge 08/09/2015 Eyes No eye erythema 08/09/2015 Ears/Nose/Throat/Neck No dizziness 2014 Ears/Nose/Throat/Neck No headache 2014 Cardiovascular No chest pain/pressure 07/2015 Cardiovascular No dyspnea 08/09/2015 Cardiovascular No edema 08/09/2015 Respiratory No productive sputum 2014 Respiratory No cough 08/09/2015 Gastrointestinal No abdominal pain 2014 Gastrointestinal No constipation 2014 Gastrointestinal diarrhea 08/09/2015 Gastrointestinal No nausea 08/09/2015 Gastrointestinal No vomiting 08/09/2015 Genitourinary/Nephrology No dysuria 08/09 Musculoskeletal back pain 08/09/2015 Musculoskeletal muscle weakness 2014 Dermatologic No rash 08/09/2015 Dermatologic No sores 08/09/2015 Neurologic No alteration of consciousness 08/09/2015 Psychiatric No anxiety 08/09/2015 Endocrine No dry or coarse skin 2014 Constitutional No recent illness 2014 Constitutional No anorexia 05/24/2015 Constitutional No night sweats 2014 Constitutional No chills 05/24/2015 Constitutional No diaphoresis 05/24/2015 Constitutional No fatigue 05/24/2015 Constitutional No fever 05/24/2015 Constitutional No insomnia 05/24/2015 Constitutional No malaise 05/24/2015 Constitutional No weight loss 05/24/2015 Constitutional No weight gain 05/24/2015 Eyes No eye discharge 05/24/2015 Eyes No eye erythema 05/24/2015 Ears/Nose/Throat/Neck No dizziness 2014 Ears/Nose/Throat/Neck No headache 2014 Cardiovascular No chest pain/pressure Cardiovascular No edema 05/24/2015 Cardiovascular No dyspnea 05/24/2015 Respiratory No productive sputum 2014 Respiratory No cough 05/24/2015 Gastrointestinal No abdominal pain 2014 Gastrointestinal No constipation 2014 Gastrointestinal diarrhea 05/24/2015 Gastrointestinal No nausea 05/24/2015 Gastrointestinal No vomiting 05/24/2015 Genitourinary/Nephrology No dysuria 05/24 Genitourinary/Nephrology urinary incontinence 05/24/2015 Musculoskeletal joint complaint 2014 Musculoskeletal muscle weakness 2014 Musculoskeletal back pain 05/24/2015 Dermatologic No rash 05/24/2015 Dermatologic No sores 05/24/2015 Neurologic No alteration of consciousness 05/24/2015 Neurologic paresthesia 05/24/2015 Psychiatric No anxiety 05/24/2015 Endocrine No dry or coarse skin 2014 Constitutional No recent illness 2014 Constitutional No chills 04/24/2015 Constitutional No fatigue 04/24/2015 Constitutional No fever 04/24/2015 Constitutional No insomnia 04/24/2015 Constitutional No malaise 04/24/2015 Eyes No blindness 04/24/2015 Eyes No vision change 04/24/2015 Ears/Nose/Throat/Neck No dental pain Ears/Nose/Throat/Neck No dizziness 2014 Ears/Nose/Throat/Neck No dysphagia 2014 Ears/Nose/Throat/Neck No headache 2014 Ears/Nose/Throat/Neck No hearing loss Ears/Nose/Throat/Neck No nasal allergies 04/24/2015 Ears/Nose/Throat/Neck No sore throat Ears/Nose/Throat/Neck No postnasal drip 04/24/2015 Ears/Nose/Throat/Neck No sinus congestion 04/24/2015 Respiratory No cigarette smoking 2014 Respiratory No cough 04/24/2015 Respiratory No dyspnea 04/24/2015 Respiratory No pedal edema 04/24/2015 Respiratory No snoring 04/24/2015 Respiratory No wheezing 04/24/2015 Gastrointestinal No abdominal pain 2014 Gastrointestinal No constipation 2014 Gastrointestinal No diarrhea 04/24/2015 Dermatologic No rash 04/24/2015 Dermatologic No scar 04/24/2015 Psychiatric No anxiety 04/24/2015 Psychiatric No depression 04/24/2015 Constitutional fever 02/14/2015 Constitutional No chills 02/14/2015 Eyes No eye discharge 02/14/2015 Eyes No eye pain 02/14/2015 Eyes No eyelid edema 02/14/2015 Eyes No eyelid erythema 02/14/2015 Ears/Nose/Throat/Neck dizziness 2014 Ears/Nose/Throat/Neck facial pain 2014 Ears/Nose/Throat/Neck headache 2014 Ears/Nose/Throat/Neck No hearing loss Ears/Nose/Throat/Neck hoarseness 2014 Ears/Nose/Throat/Neck nasal discharge Ears/Nose/Throat/Neck otalgia 02/14/2015 Ears/Nose/Throat/Neck No neck pain 2014 Ears/Nose/Throat/Neck sinus congestion Cardiovascular No dyspnea 02/14/2015 Cardiovascular No edema 02/14/2015 Cardiovascular No arrhythmia 02/14/2015 Respiratory cough 02/14/2015 Respiratory chest congestion 02/14/2015 Respiratory No chest tightness 2014 Respiratory No cigarette smoking 2014 Gastrointestinal No abdominal pain 2014 Gastrointestinal constipation 02/14/2015 Gastrointestinal No diarrhea 02/14/2015 Genitourinary/Nephrology No dysuria 02/14 Genitourinary/Nephrology No nocturia Musculoskeletal stiffness 02/14/2015 Musculoskeletal No swelling 02/14/2015 Musculoskeletal arthralgia(s) 02/14/2015 Dermatologic No mole change 02/14/2015 Dermatologic No rash 02/14/2015 Dermatologic No sores 02/14/2015 Neurologic No alteration of consciousness 02/14/2015 Constitutional No recent illness 2013 Constitutional No anorexia 10/22/2014 Constitutional No night sweats 2013 Constitutional No chills 10/22/2014 Constitutional No diaphoresis 10/22/2014 Constitutional No fatigue 10/22/2014 Constitutional No fever 10/22/2014 Constitutional No insomnia 10/22/2014 Constitutional No malaise 10/22/2014 Constitutional No weight loss 10/22/2014 Constitutional No weight gain 10/22/2014 Eyes No eye discharge 10/22/2014 Eyes No eye erythema 10/22/2014 Ears/Nose/Throat/Neck No dizziness 2013 Ears/Nose/Throat/Neck No headache 2013 Cardiovascular No chest pain/pressure Cardiovascular No dyspnea 10/22/2014 Cardiovascular No edema 10/22/2014 Cardiovascular No palpitations 2013 Cardiovascular No syncope 10/22/2014 Respiratory No cough 10/22/2014 Gastrointestinal No abdominal pain 2013 Gastrointestinal No constipation 2013 Gastrointestinal No diarrhea 10/22/2014 Gastrointestinal No vomiting 10/22/2014 Gastrointestinal No nausea 10/22/2014 Genitourinary/Nephrology No dysuria 10/22 Dermatologic No sores 10/22/2014 Dermatologic No rash 10/22/2014 Neurologic No alteration of consciousness 10/22/2014 Constitutional No recent illness 2013 Constitutional No chills 08/22/2014 Constitutional No fatigue 08/22/2014 Constitutional No fever 08/22/2014 Constitutional No insomnia 08/22/2014 Constitutional No malaise 08/22/2014 Eyes No blindness 08/22/2014 Eyes No vision change 08/22/2014 Ears/Nose/Throat/Neck No dental pain Ears/Nose/Throat/Neck No dizziness 2013 Ears/Nose/Throat/Neck No dysphagia 2013 Ears/Nose/Throat/Neck No headache 2013 Ears/Nose/Throat/Neck No hearing loss Ears/Nose/Throat/Neck No nasal allergies 08/22/2014 Ears/Nose/Throat/Neck No sore throat Ears/Nose/Throat/Neck No postnasal drip 08/22/2014 Ears/Nose/Throat/Neck No sinus congestion 08/22/2014 Cardiovascular No chest pain/pressure Cardiovascular No dyspnea 08/22/2014 Cardiovascular No edema 08/22/2014 Cardiovascular No exercise intolerance Cardiovascular No fatigue 08/22/2014 Cardiovascular No near-syncope/dizziness 08/22/2014 Respiratory No chest tightness 2013 Respiratory No cigarette smoking 2013 Respiratory No cough 08/22/2014 Respiratory No dyspnea 08/22/2014 Respiratory No pedal edema 08/22/2014 Respiratory No snoring 08/22/2014 Respiratory No wheezing 08/22/2014 Gastrointestinal No abdominal pain 2013 Gastrointestinal No diarrhea 08/22/2014 Gastrointestinal No melena 08/22/2014 Gastrointestinal No nausea 08/22/2014 Gastrointestinal No vomiting 08/22/2014 Musculoskeletal No stiffness 08/22/2014 Musculoskeletal No swelling 08/22/2014 Musculoskeletal No muscle weakness 2013 Musculoskeletal No myalgias 08/22/2014 Neurologic No dizziness 08/22/2014 Neurologic No headache 08/22/2014 Neurologic No neck pain 08/22/2014 Neurologic No syncope 08/22/2014 Psychiatric anxiety 08/22/2014 Psychiatric depression 08/22/2014 Gastrointestinal constipation 08/22/2014 Musculoskeletal arthralgia(s) 08/22/2014 Musculoskeletal joint complaint 2013 Constitutional No recent illness 2013 Constitutional No chills 02/21/2014 Constitutional No fatigue 02/21/2014 Constitutional No fever 02/21/2014 Constitutional No insomnia 02/21/2014 Constitutional No malaise 02/21/2014 Respiratory No chest tightness 2013 Respiratory No cigarette smoking 2013 Respiratory No cough 02/21/2014 Respiratory No dyspnea 02/21/2014 Respiratory No pedal edema 02/21/2014 Respiratory No snoring 02/21/2014 Respiratory No wheezing 02/21/2014 Gastrointestinal No abdominal pain 2013 Gastrointestinal No diarrhea 02/21/2014 Gastrointestinal No melena 02/21/2014 Gastrointestinal No nausea 02/21/2014 Gastrointestinal No vomiting 02/21/2014 Psychiatric No anxiety 02/21/2014 Psychiatric No depression 02/21/2014 Eyes No blindness 02/21/2014 Eyes No vision change 02/21/2014 Ears/Nose/Throat/Neck No dental pain Ears/Nose/Throat/Neck No dizziness 2013 Ears/Nose/Throat/Neck No dysphagia 2013 Ears/Nose/Throat/Neck No headache 2013 Ears/Nose/Throat/Neck No hearing loss Ears/Nose/Throat/Neck No nasal allergies 02/21/2014 Ears/Nose/Throat/Neck No sore throat Ears/Nose/Throat/Neck No postnasal drip 02/21/2014 Ears/Nose/Throat/Neck No sinus congestion 02/21/2014 Cardiovascular No chest pain/pressure Cardiovascular No dyspnea 02/21/2014 Cardiovascular No edema 02/21/2014 Cardiovascular No exercise intolerance Cardiovascular No fatigue 02/21/2014 Cardiovascular No near-syncope/dizziness 02/21/2014 Musculoskeletal No stiffness 02/21/2014 Musculoskeletal No swelling 02/21/2014 Musculoskeletal No muscle weakness 2013 Musculoskeletal No myalgias 02/21/2014 Neurologic No dizziness 02/21/2014 Neurologic No headache 02/21/2014 Neurologic No neck pain 02/21/2014 Neurologic No syncope 02/21/2014 Constitutional recent illness 12/19/2013 Constitutional No anorexia 12/19/2013 Constitutional No night sweats 2013 Constitutional No chills 12/19/2013 Constitutional No diaphoresis 12/19/2013 Constitutional fatigue 12/19/2013 Constitutional No fever 12/19/2013 Constitutional No insomnia 12/19/2013 Constitutional No malaise 12/19/2013 Eyes No eye discharge 12/19/2013 Eyes No eye erythema 12/19/2013 Ears/Nose/Throat/Neck dizziness 2013 Ears/Nose/Throat/Neck No headache 2013 Ears/Nose/Throat/Neck No nasal allergies 12/19/2013 Ears/Nose/Throat/Neck No nasal discharge 12/19/2013 Ears/Nose/Throat/Neck sore throat 2013 Ears/Nose/Throat/Neck No otalgia 2013 Cardiovascular No chest pain/pressure Cardiovascular No dyspnea 12/19/2013 Respiratory No productive sputum 2013 Respiratory No chest congestion 2013 Respiratory No cough 12/19/2013 Genitourinary/Nephrology No dysuria 12/19 Musculoskeletal No joint complaint 2013 Dermatologic No rash 12/19/2013 Dermatologic No sores 12/19/2013 Neurologic No alteration of consciousness 12/19/2013 Constitutional recent illness 12/04/2013 Constitutional anorexia 12/04/2013 Constitutional No night sweats 2013 Constitutional No chills 12/04/2013 Constitutional No diaphoresis 12/04/2013 Constitutional No fatigue 12/04/2013 Constitutional No fever 12/04/2013 Eyes No eye discharge 12/04/2013 Eyes No eye erythema 12/04/2013 Ears/Nose/Throat/Neck No nasal discharge 12/04/2013 Ears/Nose/Throat/Neck No sinus congestion 12/04/2013 Ears/Nose/Throat/Neck No dizziness 2013 Cardiovascular No dyspnea 12/04/2013 Respiratory No cough 12/04/2013 Genitourinary/Nephrology No dysuria 12/04 Dermatologic No rash 12/04/2013 Dermatologic No sores 12/04/2013 Constitutional No recent illness 2013 Constitutional No chills 11/23/2013 Constitutional No fatigue 11/23/2013 Constitutional No fever 11/23/2013 Constitutional No insomnia 11/23/2013 Constitutional No malaise 11/23/2013 Respiratory No chest tightness 2013 Respiratory No cigarette smoking 2013 Respiratory No cough 11/23/2013 Respiratory No dyspnea 11/23/2013 Respiratory No pedal edema 11/23/2013 Respiratory No snoring 11/23/2013 Respiratory No wheezing 11/23/2013 Gastrointestinal No abdominal pain 2013 Gastrointestinal No diarrhea 11/23/2013 Gastrointestinal No melena 11/23/2013 Gastrointestinal No nausea 11/23/2013 Gastrointestinal No vomiting 11/23/2013 Psychiatric No anxiety 11/23/2013 Psychiatric No depression 11/23/2013 Constitutional recent illness 10/31/2013 Constitutional anorexia 10/31/2013 Constitutional No night sweats 2012 Constitutional No chills 10/31/2013 Constitutional No diaphoresis 10/31/2013 Constitutional fatigue 10/31/2013 Constitutional No insomnia 10/31/2013 Constitutional No fever 10/31/2013 Eyes No eye erythema 10/31/2013 Eyes No eye discharge 10/31/2013 Ears/Nose/Throat/Neck dizziness 2012 Ears/Nose/Throat/Neck headache 2012 Ears/Nose/Throat/Neck No nasal allergies 10/31/2013 Ears/Nose/Throat/Neck No nasal discharge 10/31/2013 Ears/Nose/Throat/Neck No otalgia 2012 Ears/Nose/Throat/Neck No sinus congestion 10/31/2013 Cardiovascular No chest pain/pressure Respiratory No productive sputum 2012 Respiratory No chest congestion 2012 Respiratory No cough 10/31/2013 Genitourinary/Nephrology No dysuria 10/31 Genitourinary/Nephrology anuria/oliguria 10/31/2013 Musculoskeletal No joint complaint 2012 Dermatologic No rash 10/31/2013 Dermatologic No sores 10/31/2013 Constitutional No chills 10/18/2013 Constitutional No insomnia 10/18/2013 Respiratory No chest tightness 2012 Respiratory No cigarette smoking 2012 Respiratory No cough 10/18/2013 Respiratory No dyspnea 10/18/2013 Respiratory No pedal edema 10/18/2013 Respiratory No snoring 10/18/2013 Respiratory No wheezing 10/18/2013 Psychiatric No anxiety 10/18/2013 Psychiatric No depression 10/18/2013 Dermatologic No rash 10/18/2013 Dermatologic No scar 10/18/2013 Musculoskeletal No stiffness 10/18/2013 Musculoskeletal No swelling 10/18/2013 Musculoskeletal No muscle weakness 2012 Musculoskeletal No myalgias 10/18/2013 Cardiovascular No chest pain/pressure Cardiovascular No dyspnea 10/18/2013 Cardiovascular No edema 10/18/2013 Cardiovascular No exercise intolerance Cardiovascular No fatigue 10/18/2013 Cardiovascular No near-syncope/dizziness 10/18/2013 Constitutional No recent illness 2012 Constitutional No chills 08/30/2013 Constitutional No fatigue 08/30/2013 Constitutional No fever 08/30/2013 Constitutional No insomnia 08/30/2013 Constitutional No malaise 08/30/2013 Respiratory No chest tightness 2012 Respiratory No cigarette smoking 2012 Respiratory No cough 08/30/2013 Respiratory No dyspnea 08/30/2013 Respiratory No pedal edema 08/30/2013 Respiratory No snoring 08/30/2013 Respiratory No wheezing 08/30/2013 Gastrointestinal No diarrhea 08/30/2013 Gastrointestinal No melena 08/30/2013 Gastrointestinal No nausea 08/30/2013 Gastrointestinal No vomiting 08/30/2013 Psychiatric No anxiety 08/30/2013 Psychiatric No depression 08/30/2013 Gastrointestinal No abdominal pain 2012 Constitutional No recent illness 2012 Constitutional No chills 06/21/2013 Constitutional No fatigue 06/21/2013 Constitutional No fever 06/21/2013 Constitutional No insomnia 06/21/2013 Constitutional No malaise 06/21/2013 Respiratory No chest tightness 2012 Respiratory No cigarette smoking 2012 Respiratory No cough 06/21/2013 Respiratory No dyspnea 06/21/2013 Respiratory No pedal edema 06/21/2013 Respiratory No snoring 06/21/2013 Respiratory No wheezing 06/21/2013 Psychiatric No anxiety 06/21/2013 Psychiatric No depression 06/21/2013 Gastrointestinal No hemorrhoids 2012 Gastrointestinal No abdominal pain 2012 Gastrointestinal No constipation 2012 Gastrointestinal No diarrhea 06/21/2013 Gastrointestinal No gastroesophageal reflux 06/21/2013 Gastrointestinal No melena 06/21/2013 Gastrointestinal No nausea 06/21/2013 Gastrointestinal No vomiting 06/21/2013 Constitutional No recent illness 2012 Constitutional No chills 05/31/2013 Constitutional No fatigue 05/31/2013 Constitutional No fever 05/31/2013 Constitutional No insomnia 05/31/2013 Constitutional No malaise 05/31/2013 Respiratory No cigarette smoking 2012 Respiratory No cough 05/31/2013 Respiratory No dyspnea 05/31/2013 Respiratory No pedal edema 05/31/2013 Respiratory No snoring 05/31/2013 Respiratory No wheezing 05/31/2013 Gastrointestinal No abdominal pain 2012 Gastrointestinal No constipation 2012 Gastrointestinal No diarrhea 05/31/2013 Psychiatric No anxiety 05/31/2013 Psychiatric No depression 05/31/2013 Dermatologic No rash 05/31/2013 Dermatologic No scar 05/31/2013 Eyes No blindness 05/31/2013 Eyes No vision change 05/31/2013 Ears/Nose/Throat/Neck No dental pain Ears/Nose/Throat/Neck No dizziness 2012 Ears/Nose/Throat/Neck No dysphagia 2012 Ears/Nose/Throat/Neck No headache 2012 Ears/Nose/Throat/Neck No hearing loss Ears/Nose/Throat/Neck No nasal allergies 05/31/2013 Ears/Nose/Throat/Neck No sore throat Ears/Nose/Throat/Neck No postnasal drip 05/31/2013 Ears/Nose/Throat/Neck No sinus congestion 05/31/2013 Physical Exam Exam Name System Name Item Name Status Result Effective Dates Notes Full Exam - General 1994 Constitutional general appearance Overall: well developed 12/05/2018 None Full Exam - General 1994 Constitutional general appearance Overall: in no acute distress 12/05/2018 None Full Exam - General 1994 Constitutional general appearance Overall: well nourished 12/05/2018 None Full Exam - General 1994 Constitutional general appearance Assistive Device: walker 12/05/2018 None Full Exam - General 1994 Eyes conjunctiva /eyelids Overall: conjunctiva clear 12/05/2018 None Full Exam - General 1994 Eyes conjunctiva /eyelids Overall: cornea clear 12/05/2018 None Full Exam - General 1994 Eyes conjunctiva /eyelids Overall: eyelids normal 12/05/2018 None Full Exam - General 1994 Ears/Nose/Throat otoscopic exam Tympanic membrane: air- fluid level 12/05/2018 None Full Exam - General 1994 Ears/Nose/Throat lips/teeth/gingiva Overall: benign lips 12/05/2018 None Full Exam - General 1994 Ears/Nose/Throat oral cavity/pharynx/larynx Overall: oral mucosa clear 12/05/2018 None Full Exam - General 1994 Respiratory auscultation Overall: breath sounds clear bilaterally 12/05/2018 None Full Exam - General 1994 Respiratory respiratory effort/rhythm Overall: no retractions 12/05/2018 None Full Exam - General 1994 Respiratory respiratory effort/rhythm Overall: normal rate 12/05/2018 None Full Exam - General 1994 Cardiovascular extremities Overall: no clubbing 12/05/2018 None Full Exam - General 1994 Cardiovascular auscultation of heart Overall: regular rate 12/05/2018 None Full Exam - General 1994 Cardiovascular auscultation of heart Overall: normal heart sounds 12/05/2018 None Full Exam - General 1994 Cardiovascular auscultation of heart Murmur: previously known murmur unchanged 12/05/2018 None Full Exam - General 1994 Cardiovascular auscultation of heart Systolic murmur: midsystolic 12/05/2018 None Full Exam - General 1994 Cardiovascular auscultation of heart Systolic murmur grade: III/ 12/05/2018 None Full Exam - General 1994 Abdomen abdominal exam Overall: no tenderness 12/05/2018 None Full Exam - General 1994 Abdomen abdominal exam Overall: normal bowel sounds 12/05/2018 None Full Exam - General 1994 Musculoskeletal head and neck Overall: head atraumatic 12/05/2018 None Full Exam - General 1994 Integument inspection of skin Location: face 12/05/2018 melanocytic nevus left cheek Full Exam - General 1994 Neurologic cranial nerves Overall: crainial nerves 2 - 12 grossly intact 12/05/2018 None Full Exam - General 1994 Psychiatric orientation/consciousness Overall: oriented to person, place and time 12/05/2018 None Full Exam - General 1994 Psychiatric mood and affect Overall: normal mood and affect 12/05/2018 None Full Exam - General 1994 Psychiatric mood and affect Mood: happy 12/05/2018 None Full Exam - General 1994 Constitutional general appearance Overall: well developed 08/02/2018 None Full Exam - General 1994 Constitutional general appearance Overall: in no acute distress 08/02/2018 None Full Exam - General 1994 Constitutional general appearance Overall: well nourished 08/02/2018 None Full Exam - General 1994 Constitutional general appearance Assistive Device: walker 08/02/2018 None Full Exam - General 1994 Eyes conjunctiva /eyelids Overall: conjunctiva clear 08/02/2018 None Full Exam - General 1994 Eyes conjunctiva /eyelids Overall: cornea clear 08/02/2018 None Full Exam - General 1994 Eyes conjunctiva /eyelids Overall: eyelids normal 08/02/2018 None Full Exam - General 1994 Ears/Nose/Throat otoscopic exam Tympanic membrane: air- fluid level 08/02/2018 None Full Exam - General 1994 Ears/Nose/Throat lips/teeth/gingiva Overall: benign lips 08/02/2018 None Full Exam - General 1994 Ears/Nose/Throat oral cavity/pharynx/larynx Overall: oral mucosa clear 08/02/2018 None Full Exam - General 1995 Respiratory auscultation Overall: breath sounds clear bilaterally 08/02/2018 None Full Exam - General 1994 Respiratory respiratory effort/rhythm Overall: no retractions 08/02/2018 None Full Exam - General 1994 Respiratory respiratory effort/rhythm Overall: normal rate 08/02/2018 None Full Exam - General 1994 Cardiovascular auscultation of heart Overall: regular rate 08/02/2018 None Full Exam - General 1994 Cardiovascular auscultation of heart Overall: normal heart sounds 08/02/2018 None Full Exam - General 1994 Cardiovascular auscultation of heart Murmur: previously known murmur unchanged 08/02/2018 None Full Exam - General 1994 Cardiovascular auscultation of heart Systolic murmur: midsystolic 08/02/2018 None Full Exam - General 1994 Cardiovascular auscultation of heart Systolic murmur grade: III/ 08/02/2018 None Full Exam - General 1994 Abdomen abdominal exam Overall: no tenderness 08/02/2018 None Full Exam - General 1994 Abdomen abdominal exam Overall: normal bowel sounds 08/02/2018 None Full Exam - General 1994 Musculoskeletal head and neck Overall: head atraumatic 08/02/2018 None Full Exam - General 1994 Neurologic cranial nerves Overall: crainial nerves 2 - 12 grossly intact 08/02/2018 None Full Exam - General 1994 Psychiatric orientation/consciousness Overall: oriented to person, place and time 08/02/2018 None Full Exam - General 1994 Psychiatric mood and affect Overall: normal mood and affect 08/02/2018 None Full Exam - General 1994 Psychiatric mood and affect Mood: happy 08/02/2018 None Full Exam - General 1994 Cardiovascular extremities Overall: no clubbing 08/02/2018 None Full Exam - General 1994 Integument inspection of skin Location: face 08/02/2018 melanocytic nevus left cheek Full Exam - General 1994 Constitutional general appearance Overall: well developed 04/08/2018 None Full Exam - General 1994 Constitutional general appearance Overall: in no acute distress 04/08/2018 None Full Exam - General 1994 Constitutional general appearance Overall: well nourished 04/08/2018 None Full Exam - General 1994 Constitutional general appearance Assistive Device: walker 04/08/2018 None Full Exam - General 1994 Eyes conjunctiva /eyelids Overall: conjunctiva clear 04/08/2018 None Full Exam - General 1994 Eyes conjunctiva /eyelids Overall: cornea clear 04/08/2018 None Full Exam - General 1995 Eyes conjunctiva /eyelids Overall: eyelids normal 04/08/2018 None Full Exam - General 1995 Ears/Nose/Throat lips/teeth/gingiva Overall: benign lips 04/08/2018 None Full Exam - General 1995 Ears/Nose/Throat oral cavity/pharynx/larynx Overall: oral mucosa clear 04/08/2018 None Full Exam - General 1994 Respiratory auscultation Overall: breath sounds clear bilaterally 04/08/2018 None Full Exam - General 1994 Respiratory respiratory effort/rhythm Overall: no retractions 04/08/2018 None Full Exam - General 1995 Respiratory respiratory effort/rhythm Overall: normal rate 04/08/2018 None Full Exam - General 1994 Cardiovascular extremities Edema present: pitting 04/08/2018 None Full Exam - General 1994 Cardiovascular extremities Edema present: severity 1+ - 4 +: 1+ 04/08/2018 None Full Exam - General 1994 Cardiovascular extremities Edema present: bilateral 04/08/2018 None Full Exam - General 1994 Cardiovascular extremities Edema present: to leg 04/08/2018 None Full Exam - General 1994 Cardiovascular auscultation of heart Overall: regular rate 04/08/2018 None Full Exam - General 1994 Cardiovascular auscultation of heart Overall: normal heart sounds 04/08/2018 None Full Exam - General 1994 Cardiovascular auscultation of heart Murmur: previously known murmur unchanged 04/08/2018 None Full Exam - General 1994 Cardiovascular auscultation of heart Systolic murmur: midsystolic 04/08/2018 None Full Exam - General 1994 Cardiovascular auscultation of heart Systolic murmur grade: III/ 04/08/2018 None Full Exam - General 1994 Abdomen abdominal exam Overall: no tenderness 04/08/2018 None Full Exam - General 1994 Abdomen abdominal exam Overall: normal bowel sounds 04/08/2018 None Full Exam - General 1994 Musculoskeletal head and neck Overall: head atraumatic 04/08/2018 None Full Exam - General 1994 Neurologic cranial nerves Overall: crainial nerves 2 - 12 grossly intact 04/08/2018 None Full Exam - General 1994 Psychiatric orientation/consciousness Overall: oriented to person, place and time 04/08/2018 None Full Exam - General 1994 Psychiatric mood and affect Overall: normal mood and affect 04/08/2018 None Full Exam - General 1994 Psychiatric mood and affect Mood: happy 04/08/2018 None Full Exam - General 1994 Ears/Nose/Throat otoscopic exam Tympanic membrane: air- fluid level 04/08/2018 None Full Exam - General 1994 Constitutional general appearance Overall: well developed 01/31/2018 None Full Exam - General 1994 Constitutional general appearance Overall: in no acute distress 01/31/2018 None Full Exam - General 1994 Constitutional general appearance Overall: well nourished 01/31/2018 None Full Exam - General 1994 Constitutional general appearance Assistive Device: walker 01/31/2018 None Full Exam - General 1994 Eyes conjunctiva /eyelids Overall: conjunctiva clear 01/31/2018 None Full Exam - General 1994 Eyes conjunctiva /eyelids Overall: cornea clear 01/31/2018 None Full Exam - General 1994 Eyes conjunctiva /eyelids Overall: eyelids normal 01/31/2018 None Full Exam - General 1994 Ears/Nose/Throat otoscopic exam Tympanic membrane: air- fluid level 01/31/2018 --Improved Full Exam - General 1994 Ears/Nose/Throat lips/teeth/gingiva Overall: benign lips 01/31/2018 None Full Exam - General 1994 Ears/Nose/Throat oral cavity/pharynx/larynx Overall: oral mucosa clear 01/31/2018 None Full Exam - General 1994 Respiratory auscultation Overall: breath sounds clear bilaterally 01/31/2018 None Full Exam - General 1994 Respiratory respiratory effort/rhythm Overall: no retractions 01/31/2018 None Full Exam - General 1994 Respiratory respiratory effort/rhythm Overall: normal rate 01/31/2018 None Full Exam - General 1994 Cardiovascular extremities Edema present: pitting 01/31/2018 None Full Exam - General 1994 Cardiovascular extremities Edema present: severity 1+ - 4 +: 1+ 01/31/2018 None Full Exam - General 1994 Cardiovascular extremities Edema present: bilateral 01/31/2018 None Full Exam - General 1994 Cardiovascular extremities Edema present: to leg 01/31/2018 None Full Exam - General 1994 Cardiovascular auscultation of heart Overall: regular rate 01/31/2018 None Full Exam - General 1994 Cardiovascular auscultation of heart Overall: normal heart sounds 01/31/2018 None Full Exam - General 1994 Cardiovascular auscultation of heart Murmur: previously known murmur unchanged 01/31/2018 None Full Exam - General 1994 Cardiovascular auscultation of heart Systolic murmur: midsystolic 01/31/2018 None Full Exam - General 1994 Cardiovascular auscultation of heart Systolic murmur grade: III/ 01/31/2018 None Full Exam - General 1994 Abdomen abdominal exam Overall: no tenderness 01/31/2018 None Full Exam - General 1994 Abdomen abdominal exam Overall: normal bowel sounds 01/31/2018 None Full Exam - General 1994 Musculoskeletal head and neck Overall: head atraumatic 01/31/2018 None Full Exam - General 1994 Neurologic cranial nerves Overall: crainial nerves 2 - 12 grossly intact 01/31/2018 None Full Exam - General 1994 Psychiatric orientation/consciousness Overall: oriented to person, place and time 01/31/2018 None Full Exam - General 1994 Psychiatric mood and affect Overall: normal mood and affect 01/31/2018 None Full Exam - General 1994 Psychiatric mood and affect Mood: happy 01/31/2018 None Full Exam - General 1994 Constitutional general appearance Overall: well developed 01/10/2018 None Full Exam - General 1994 Constitutional general appearance Overall: in no acute distress 01/10/2018 None Full Exam - General 1994 Constitutional general appearance Overall: well nourished 01/10/2018 None Full Exam - General 1994 Eyes conjunctiva /eyelids Overall: conjunctiva clear 01/10/2018 None Full Exam - General 1994 Eyes conjunctiva /eyelids Overall: cornea clear 01/10/2018 None Full Exam - General 1994 Eyes conjunctiva /eyelids Overall: eyelids normal 01/10/2018 None Full Exam - General 1994 Ears/Nose/Throat lips/teeth/gingiva Overall: benign lips 01/10/2018 None Full Exam - General 1994 Ears/Nose/Throat oral cavity/pharynx/larynx Overall: oral mucosa clear 01/10/2018 None Full Exam - General 1994 Respiratory auscultation Overall: breath sounds clear bilaterally 01/10/2018 None Full Exam - General 1994 Respiratory respiratory effort/rhythm Overall: no retractions 01/10/2018 None Full Exam - General 1994 Respiratory respiratory effort/rhythm Overall: normal rate 01/10/2018 None Full Exam - General 1994 Cardiovascular extremities Edema present: pitting 01/10/2018 None Full Exam - General 1994 Cardiovascular extremities Edema present: severity 1+ - 4 +: 1+ 01/10/2018 None Full Exam - General 1994 Cardiovascular extremities Edema present: bilateral 01/10/2018 None Full Exam - General 1994 Cardiovascular extremities Edema present: to leg 01/10/2018 None Full Exam - General 1994 Cardiovascular auscultation of heart Overall: regular rate 01/10/2018 None Full Exam - General 1994 Cardiovascular auscultation of heart Overall: normal heart sounds 01/10/2018 None Full Exam - General 1994 Cardiovascular auscultation of heart Murmur: previously known murmur unchanged 01/10/2018 None Full Exam - General 1994 Cardiovascular auscultation of heart Systolic murmur: midsystolic 01/10/2018 None Full Exam - General 1994 Cardiovascular auscultation of heart Systolic murmur grade: III/ 01/10/2018 None Full Exam - General 1994 Abdomen abdominal exam Overall: no tenderness 01/10/2018 None Full Exam - General 1994 Abdomen abdominal exam Overall: normal bowel sounds 01/10/2018 None Full Exam - General 1994 Musculoskeletal head and neck Overall: head atraumatic 01/10/2018 None Full Exam - General 1994 Neurologic cranial nerves Overall: crainial nerves 2 - 12 grossly intact 01/10/2018 None Full Exam - General 1994 Psychiatric orientation/consciousness Overall: oriented to person, place and time 01/10/2018 None Full Exam - General 1994 Psychiatric mood and affect Overall: normal mood and affect 01/10/2018 None Full Exam - General 1994 Psychiatric mood and affect Mood: happy 01/10/2018 None Full Exam - General 1994 Integument inspection of skin Location: left leg 01/10/2018 scar left hip Full Exam - General 1994 Constitutional general appearance Assistive Device: walker 01/10/2018 None Full Exam - General 1994 Ears/Nose/Throat otoscopic exam Tympanic membrane: air- fluid level 01/10/2018 None Full Exam - General 1994 Constitutional general appearance Overall: well developed 12/21/2017 None Full Exam - General 1994 Constitutional general appearance Overall: in no acute distress 12/21/2017 None Full Exam - General 1994 Constitutional general appearance Overall: well nourished 12/21/2017 None Full Exam - General 1994 Eyes conjunctiva /eyelids Overall: conjunctiva clear 12/21/2017 None Full Exam - General 1994 Eyes conjunctiva /eyelids Overall: cornea clear 12/21/2017 None Full Exam - General 1994 Eyes conjunctiva /eyelids Overall: eyelids normal 12/21/2017 None Full Exam - General 1994 Eyes pupils and irises Overall: pupils equal, round, reactive to light and accomodation 12/21/2017 None Full Exam - General 1994 Ears/Nose/Throat lips/teeth/gingiva Overall: benign lips 12/21/2017 None Full Exam - General 1994 Ears/Nose/Throat otoscopic exam Overall: tympanic membranes clear 12/21/2017 None Full Exam - General 1994 Ears/Nose/Throat otoscopic exam Overall: external auditory canals clear 12/21/2017 None Full Exam - General 1994 Ears/Nose/Throat oral cavity/pharynx/larynx Overall: oral mucosa clear 12/21/2017 None Full Exam - General 1994 Respiratory respiratory effort/rhythm Overall: no retractions 12/21/2017 None Full Exam - General 1994 Respiratory respiratory effort/rhythm Overall: normal rate 12/21/2017 None Full Exam - General 1994 Respiratory auscultation Overall: breath sounds clear bilaterally 12/21/2017 None Full Exam - General 1994 Respiratory auscultation Diffuse: diminished 12/21/2017 None Full Exam - General 1994 Cardiovascular auscultation of heart Systolic murmur: midsystolic 12/21/2017 None Full Exam - General 1994 Cardiovascular auscultation of heart Systolic murmur grade: III/ 12/21/2017 None Full Exam - General 1994 Musculoskeletal head and neck Overall: head atraumatic 12/21/2017 None Full Exam - General 1994 Neurologic cranial nerves Overall: crainial nerves 2 - 12 grossly intact 12/21/2017 None Full Exam - General 1994 Psychiatric orientation/consciousness Overall: oriented to person, place and time 12/21/2017 None Full Exam - General 1994 Psychiatric mood and affect Overall: normal mood and affect 12/21/2017 None Full Exam - General 1994 Psychiatric appearance Overall: well-groomed, good eye contact 12/21/2017 None Full Exam - General 1994 Constitutional general appearance Overall: well developed 12/03/2017 None Full Exam - General 1994 Constitutional general appearance Overall: in no acute distress 12/03/2017 None Full Exam - General 1994 Constitutional general appearance Overall: well nourished 12/03/2017 None Full Exam - General 1994 Ears/Nose/Throat oral cavity/pharynx/larynx Overall: oral mucosa clear 12/03/2017 None Full Exam - General 1994 Respiratory auscultation Overall: breath sounds clear bilaterally 12/03/2017 None Full Exam - General 1994 Respiratory respiratory effort/rhythm Overall: no retractions 12/03/2017 None Full Exam - General 1994 Respiratory respiratory effort/rhythm Overall: normal rate 12/03/2017 None Full Exam - General 1995 Cardiovascular auscultation of heart Overall: regular rate 12/03/2017 None Full Exam - General 1995 Cardiovascular auscultation of heart Overall: normal heart sounds 12/03/2017 None Full Exam - General 1995 Cardiovascular auscultation of heart Murmur: previously known murmur unchanged 12/03/2017 None Full Exam - General 1995 Cardiovascular auscultation of heart Systolic murmur: midsystolic 12/03/2017 None Full Exam - General 1994 Cardiovascular auscultation of heart Systolic murmur grade: III/ 12/03/2017 None Full Exam - General 1995 Abdomen abdominal exam Overall: no tenderness 12/03/2017 None Full Exam - General 1995 Abdomen abdominal exam Overall: normal bowel sounds 12/03/2017 None Full Exam - General 1995 Neurologic cranial nerves Overall: crainial nerves 2 - 12 grossly intact 12/03/2017 None Full Exam - General 1994 Psychiatric orientation/consciousness Overall: oriented to person, place and time 12/03/2017 None Full Exam - General 1994 Psychiatric mood and affect Overall: normal mood and affect 12/03/2017 None Full Exam - General 1995 Psychiatric mood and affect Mood: happy 12/03/2017 None Full Exam - General 1995 Eyes conjunctiva /eyelids Overall: conjunctiva clear 12/03/2017 None Full Exam - General 1995 Eyes conjunctiva /eyelids Overall: cornea clear 12/03/2017 None Full Exam - General 1994 Eyes conjunctiva /eyelids Overall: eyelids normal 12/03/2017 None Full Exam - General 1994 Ears/Nose/Throat lips/teeth/gingiva Overall: benign lips 12/03/2017 None Full Exam - General 1994 Musculoskeletal head and neck Overall: head atraumatic 12/03/2017 None Full Exam - General 1994 Cardiovascular extremities Edema present: pitting 12/03/2017 None Full Exam - General 1994 Cardiovascular extremities Edema present: severity 1+ - 4 +: 1+ 12/03/2017 None Full Exam - General 1994 Cardiovascular extremities Edema present: bilateral 12/03/2017 None Full Exam - General 1994 Cardiovascular extremities Edema present: to leg 12/03/2017 None Full Exam - Dermatology Constitutional general appearance Overall: well nourished 10/11/2017 None Full Exam - Dermatology Constitutional general appearance Overall: well developed 10/11/2017 None Full Exam - Dermatology Constitutional general appearance Overall: in no acute distress 10/11/2017 None Full Exam - Dermatology Eyes conjunctiva/ eyelids Overall: clear conjunctiva bilaterally 10/11/2017 None Full Exam - Dermatology Eyes conjunctiva/ eyelids Overall: clear corneas 10/11/2017 None Full Exam - Dermatology Eyes conjunctiva/ eyelids Overall: normal eyelids 10/11/2017 None Full Exam - Dermatology Ears/Nose/Throat lips/teeth/gingiva Overall: benign lips 10/11/2017 None Full Exam - Dermatology Respiratory respiratory effort/rhythm Overall: normal rate 10/11/2017 None Full Exam - Dermatology Respiratory respiratory effort/rhythm Overall: no retractions 10/11/2017 None Full Exam - Dermatology Musculoskeletal head and neck Overall: head atraumatic 10/11/2017 None Full Exam - Dermatology Integument insp & palp - back Lesion: patch 10/11/2017 None Full Exam - Dermatology Integument insp & palp - back Lesion: vesicle 10/11/2017 None Full Exam - Dermatology Integument insp & palp - back Location: on the mid back 10/11/2017 None Full Exam - Dermatology Integument insp & palp - back Location: on the right back 10/11/2017 None Full Exam - Dermatology Integument insp & palp - back Color: erythematous 10/11/2017 None Full Exam - Dermatology Psychiatric orientation Overall: oriented to person, place and time 10/11/2017 None Full Exam - Dermatology Psychiatric mood and affect Overall: normal mood and affect 10/11/2017 None Full Exam - General 1994 Constitutional general appearance Overall: well developed 08/03/2017 None Full Exam - General 1994 Constitutional general appearance Overall: in no acute distress 08/03/2017 None Full Exam - General 1994 Constitutional general appearance Overall: well nourished 08/03/2017 None Full Exam - General 1994 Ears/Nose/Throat oral cavity/pharynx/larynx Overall: oral mucosa clear 08/03/2017 None Full Exam - General 1994 Ears/Nose/Throat oral cavity/pharynx/larynx Overall: oropharyngeal mucosa clear 08/03/2017 None Full Exam - General 1994 Ears/Nose/Throat oral cavity/pharynx/larynx Overall: no masses 08/03/2017 None Full Exam - General 1994 Respiratory auscultation Overall: breath sounds clear bilaterally 08/03/2017 None Full Exam - General 1994 Respiratory respiratory effort/rhythm Overall: no retractions 08/03/2017 None Full Exam - General 1994 Respiratory respiratory effort/rhythm Overall: normal rate 08/03/2017 None Full Exam - General 1994 Cardiovascular auscultation of heart Overall: regular rate 08/03/2017 None Full Exam - General 1994 Cardiovascular auscultation of heart Overall: normal heart sounds 08/03/2017 None Full Exam - General 1994 Cardiovascular auscultation of heart Murmur: previously known murmur unchanged 08/03/2017 None Full Exam - General 1994 Cardiovascular auscultation of heart Systolic murmur: midsystolic 08/03/2017 None Full Exam - General 1994 Cardiovascular auscultation of heart Systolic murmur grade: III/ 08/03/2017 None Full Exam - General 1994 Abdomen abdominal exam Overall: no tenderness 08/03/2017 None Full Exam - General 1994 Abdomen abdominal exam Overall: normal bowel sounds 08/03/2017 None Full Exam - General 1994 Neurologic cranial nerves Overall: crainial nerves 2 - 12 grossly intact 08/03/2017 None Full Exam - General 1994 Psychiatric orientation/consciousness Overall: oriented to person, place and time 08/03/2017 None Full Exam - General 1994 Psychiatric mood and affect Overall: normal mood and affect 08/03/2017 None Full Exam - General 1994 Psychiatric mood and affect Mood: happy 08/03/2017 None Full Exam - General 1994 Constitutional general appearance Overall: well developed 08/02/2017 None Full Exam - General 1994 Constitutional general appearance Overall: in no acute distress 08/02/2017 None Full Exam - General 1994 Constitutional general appearance Overall: well nourished 08/02/2017 None Full Exam - General 1994 Ears/Nose/Throat oral cavity/pharynx/larynx Overall: oral mucosa clear 08/02/2017 None Full Exam - General 1994 Ears/Nose/Throat oral cavity/pharynx/larynx Overall: oropharyngeal mucosa clear 08/02/2017 None Full Exam - General 1994 Ears/Nose/Throat oral cavity/pharynx/larynx Overall: no masses 08/02/2017 None Full Exam - General 1994 Respiratory auscultation Overall: breath sounds clear bilaterally 08/02/2017 None Full Exam - General 1994 Respiratory respiratory effort/rhythm Overall: no retractions 08/02/2017 None Full Exam - General 1994 Respiratory respiratory effort/rhythm Overall: normal rate 08/02/2017 None Full Exam - General 1994 Cardiovascular auscultation of heart Overall: regular rate 08/02/2017 None Full Exam - General 1994 Cardiovascular auscultation of heart Overall: normal heart sounds 08/02/2017 None Full Exam - General 1994 Cardiovascular auscultation of heart Murmur: previously known murmur unchanged 08/02/2017 None Full Exam - General 1994 Cardiovascular auscultation of heart Systolic murmur: midsystolic 08/02/2017 None Full Exam - General 1994 Cardiovascular auscultation of heart Systolic murmur grade: III/ 08/02/2017 None Full Exam - General 1994 Abdomen abdominal exam Overall: no tenderness 08/02/2017 None Full Exam - General 1994 Abdomen abdominal exam Overall: normal bowel sounds 08/02/2017 None Full Exam - General 1994 Neurologic cranial nerves Overall: crainial nerves 2 - 12 grossly intact 08/02/2017 None Full Exam - General 1994 Psychiatric orientation/consciousness Overall: oriented to person, place and time 08/02/2017 None Full Exam - General 1994 Psychiatric mood and affect Overall: normal mood and affect 08/02/2017 None Full Exam - General 1994 Psychiatric mood and affect Mood: happy 08/02/2017 None Full Exam - ENT Constitutional general appearance Overall: well nourished 07/12/2017 None Full Exam - ENT Constitutional general appearance Overall: well developed 07/12/2017 None Full Exam - ENT Constitutional general appearance Overall: in no acute distress 07/12/2017 None Full Exam - ENT Ears/Nose/Throat otoscopic exam Overall: external auditory canals normal 07/12/2017 None Full Exam - ENT Ears/Nose/Throat otoscopic exam Left tympanic membrane: air -fluid level 07/12/2017 None Full Exam - ENT Ears/Nose/Throat otoscopic exam Right tympanic membrane: air-fluid level 07/12/2017 None Full Exam - ENT Ears/Nose/Throat nasal mucosa, septum, turbinates Drainage: clear 07/12/2017 None Full Exam - ENT Ears/Nose/Throat nasal mucosa, septum, turbinates Drainage: yellow 07/12/2017 None Full Exam - ENT Ears/Nose/Throat lips/ teeth/gingiva Overall: benign lips 07/12/2017 None Full Exam - ENT Ears/Nose/Throat oropharynx Posterior Pharynx: clear post nasal drainage 07/12/2017 None Full Exam - ENT Respiratory inspection Overall: no retractions 07/12/2017 None Full Exam - ENT Respiratory inspection Overall: normal rate 09/2017 None Full Exam - ENT Cardiovascular auscultation of heart Overall: regular rate 07/12/2017 None Full Exam - ENT Cardiovascular auscultation of heart Overall: normal heart sounds 07/12/2017 None Full Exam - ENT Lymphatic palpation of lymph nodes Overall: anterior cervical chain benign 07/12/2017 None Full Exam - ENT Lymphatic palpation of lymph nodes Overall: posterior cervical chain benign 07/12/2017 None Full Exam - ENT Neurologic mood and affect Overall: normal mood 07/12/2017 None Full Exam - ENT Neurologic mood and affect Overall: normal affect 07/12/2017 None Full Exam - ENT Neurologic orientation Overall: oriented to person, place and time 07/12/2017 None Full Exam - ENT Face and Head palpation Left frontal sinus: tender 07/12/2017 None Full Exam - ENT Face and Head palpation Right frontal sinus: tender 07/12/2017 None Full Exam - ENT Respiratory auscultation Diffuse: diminished None Full Exam - ENT Respiratory auscultation Right lower lung field: expiratory wheezes 07/12/2017 None Full Exam - General 1994 Constitutional general appearance Overall: well developed 06/29/2017 None Full Exam - General 1994 Constitutional general appearance Overall: in no acute distress 06/29/2017 None Full Exam - General 1994 Constitutional general appearance Overall: well nourished 06/29/2017 None Full Exam - General 1994 Ears/Nose/Throat oral cavity/pharynx/larynx Overall: oral mucosa clear 06/29/2017 None Full Exam - General 1994 Ears/Nose/Throat oral cavity/pharynx/larynx Overall: oropharyngeal mucosa clear 06/29/2017 None Full Exam - General 1994 Ears/Nose/Throat oral cavity/pharynx/larynx Overall: no masses 06/29/2017 None Full Exam - General 1994 Respiratory auscultation Overall: breath sounds clear bilaterally 06/29/2017 None Full Exam - General 1994 Respiratory respiratory effort/rhythm Overall: no retractions 06/29/2017 None Full Exam - General 1994 Respiratory respiratory effort/rhythm Overall: normal rate 06/29/2017 None Full Exam - General 1994 Cardiovascular auscultation of heart Overall: regular rate 06/29/2017 None Full Exam - General 1994 Cardiovascular auscultation of heart Overall: normal heart sounds 06/29/2017 None Full Exam - General 1994 Cardiovascular auscultation of heart Murmur: previously known murmur unchanged 06/29/2017 None Full Exam - General 1994 Cardiovascular auscultation of heart Systolic murmur: midsystolic 06/29/2017 None Full Exam - General 1994 Cardiovascular auscultation of heart Systolic murmur grade: III/ 06/29/2017 None Full Exam - General 1994 Abdomen abdominal exam Overall: no tenderness 06/29/2017 None Full Exam - General 1994 Abdomen abdominal exam Overall: normal bowel sounds 06/29/2017 None Full Exam - General 1994 Neurologic cranial nerves Overall: crainial nerves 2 - 12 grossly intact 06/29/2017 None Full Exam - General 1994 Psychiatric orientation/consciousness Overall: oriented to person, place and time 06/29/2017 None Full Exam - General 1994 Psychiatric mood and affect Overall: normal mood and affect 06/29/2017 None Full Exam - General 1994 Psychiatric mood and affect Mood: happy 06/29/2017 None Full Exam - General 1994 Constitutional general appearance Overall: well developed 06/14/2017 None Full Exam - General 1994 Constitutional general appearance Overall: in no acute distress 06/14/2017 None Full Exam - General 1994 Constitutional general appearance Overall: well nourished 06/14/2017 None Full Exam - General 1994 Ears/Nose/Throat oral cavity/pharynx/larynx Overall: oral mucosa clear 06/14/2017 None Full Exam - General 1994 Ears/Nose/Throat oral cavity/pharynx/larynx Overall: oropharyngeal mucosa clear 06/14/2017 None Full Exam - General 1994 Ears/Nose/Throat oral cavity/pharynx/larynx Overall: no masses 06/14/2017 None Full Exam - General 1994 Respiratory auscultation Overall: breath sounds clear bilaterally 06/14/2017 None Full Exam - General 1994 Respiratory respiratory effort/rhythm Overall: no retractions 06/14/2017 None Full Exam - General 1994 Respiratory respiratory effort/rhythm Overall: normal rate 06/14/2017 None Full Exam - General 1994 Cardiovascular auscultation of heart Overall: regular rate 06/14/2017 None Full Exam - General 1994 Cardiovascular auscultation of heart Overall: normal heart sounds 06/14/2017 None Full Exam - General 1994 Abdomen abdominal exam Overall: no tenderness 06/14/2017 None Full Exam - General 1994 Abdomen abdominal exam Overall: normal bowel sounds 06/14/2017 None Full Exam - General 1994 Integument inspection of skin Location: back 06/14/2017 None Full Exam - General 1994 Integument inspection of skin Rash/Lesions: patch 06/14/2017 None Full Exam - General 1994 Neurologic cranial nerves Overall: crainial nerves 2 - 12 grossly intact 06/14/2017 None Full Exam - General 1994 Psychiatric orientation/consciousness Overall: oriented to person, place and time 06/14/2017 None Full Exam - General 1994 Psychiatric mood and affect Overall: normal mood and affect 06/14/2017 None Full Exam - General 1994 Psychiatric mood and affect Mood: happy 06/14/2017 None Full Exam - General 1994 Cardiovascular auscultation of heart Murmur: previously known murmur unchanged 06/14/2017 None Full Exam - General 1994 Cardiovascular auscultation of heart Systolic murmur: midsystolic 06/14/2017 None Full Exam - General 1994 Cardiovascular auscultation of heart Systolic murmur grade: III/ 06/14/2017 None Full Exam - General 1994 Constitutional general appearance Overall: well developed 04/05/2017 None Full Exam - General 1994 Constitutional general appearance Overall: in no acute distress 04/05/2017 None Full Exam - General 1994 Constitutional general appearance Overall: well nourished 04/05/2017 None Full Exam - General 1994 Ears/Nose/Throat oral cavity/pharynx/larynx Overall: oral mucosa clear 04/05/2017 None Full Exam - General 1994 Ears/Nose/Throat oral cavity/pharynx/larynx Overall: oropharyngeal mucosa clear 04/05/2017 None Full Exam - General 1994 Ears/Nose/Throat oral cavity/pharynx/larynx Overall: no masses 04/05/2017 None Full Exam - General 1994 Respiratory auscultation Overall: breath sounds clear bilaterally 04/05/2017 None Full Exam - General 1994 Respiratory respiratory effort/rhythm Overall: no retractions 04/05/2017 None Full Exam - General 1994 Respiratory respiratory effort/rhythm Overall: normal rate 04/05/2017 None Full Exam - General 1994 Cardiovascular auscultation of heart Overall: regular rate 04/05/2017 None Full Exam - General 1994 Cardiovascular auscultation of heart Overall: normal heart sounds 04/05/2017 None Full Exam - General 1994 Cardiovascular auscultation of heart Overall: no murmurs 04/05/2017 None Full Exam - General 1994 Abdomen abdominal exam Overall: no tenderness 04/05/2017 None Full Exam - General 1994 Abdomen abdominal exam Overall: normal bowel sounds 04/05/2017 None Full Exam - General 1994 Neurologic cranial nerves Overall: crainial nerves 2 - 12 grossly intact 04/05/2017 None Full Exam - General 1994 Psychiatric orientation/consciousness Overall: oriented to person, place and time 04/05/2017 None Full Exam - General 1994 Psychiatric mood and affect Overall: normal mood and affect 04/05/2017 None Full Exam - General 1994 Psychiatric mood and affect Mood: happy 04/05/2017 None Full Exam - General 1994 Integument inspection of skin Location: back 04/05/2017 None Full Exam - General 1994 Integument inspection of skin Rash/Lesions: patch 04/05/2017 None Full Exam - General 1994 Constitutional general appearance Overall: well developed 01/19/2017 None Full Exam - General 1994 Constitutional general appearance Overall: in no acute distress 01/19/2017 None Full Exam - General 1994 Constitutional general appearance Overall: well nourished 01/19/2017 None Full Exam - General 1994 Ears/Nose/Throat oral cavity/pharynx/larynx Overall: oral mucosa clear 01/19/2017 None Full Exam - General 1994 Ears/Nose/Throat oral cavity/pharynx/larynx Overall: oropharyngeal mucosa clear 01/19/2017 None Full Exam - General 1994 Ears/Nose/Throat oral cavity/pharynx/larynx Overall: no masses 01/19/2017 None Full Exam - General 1994 Respiratory auscultation Overall: breath sounds clear bilaterally 01/19/2017 None Full Exam - General 1994 Respiratory respiratory effort/rhythm Overall: no retractions 01/19/2017 None Full Exam - General 1994 Respiratory respiratory effort/rhythm Overall: normal rate 01/19/2017 None Full Exam - General 1994 Cardiovascular auscultation of heart Overall: regular rate 01/19/2017 None Full Exam - General 1994 Cardiovascular auscultation of heart Overall: normal heart sounds 01/19/2017 None Full Exam - General 1994 Cardiovascular auscultation of heart Systolic murmur: holosystolic 01/19/2017 None Full Exam - General 1994 Cardiovascular auscultation of heart Systolic murmur grade: III/ 01/19/2017 None Full Exam - General 1994 Abdomen abdominal exam Overall: no tenderness 01/19/2017 None Full Exam - General 1994 Abdomen abdominal exam Overall: normal bowel sounds 01/19/2017 None Full Exam - General 1994 Musculoskeletal head and neck Overall: head atraumatic 01/19/2017 None Full Exam - General 1994 Neurologic cranial nerves Overall: crainial nerves 2 - 12 grossly intact 01/19/2017 None Full Exam - General 1994 Psychiatric orientation/consciousness Overall: oriented to person, place and time 01/19/2017 None Full Exam - General 1994 Psychiatric mood and affect Overall: normal mood and affect 01/19/2017 None Full Exam - General 1994 Psychiatric mood and affect Mood: happy 01/19/2017 None Full Exam - ENT Constitutional general appearance Overall: well nourished 10/05/2016 None Full Exam - ENT Constitutional general appearance Overall: well developed 10/05/2016 None Full Exam - ENT Constitutional general appearance Overall: in no acute distress 10/05/2016 None Full Exam - ENT Constitutional communication assessment Overall: normal mode of communication 10/05/2016 None Full Exam - ENT Ears/Nose/Throat otoscopic exam Overall: external auditory canals normal 10/05/2016 None Full Exam - ENT Ears/Nose/Throat otoscopic exam Left tympanic membrane: air -fluid level 10/05/2016 None Full Exam - ENT Ears/Nose/Throat otoscopic exam Right tympanic membrane: air-fluid level 10/05/2016 None Full Exam - ENT Respiratory auscultation Overall: breath sounds clear bilaterally 10/05/2016 None Full Exam - ENT Cardiovascular auscultation of heart Overall: regular rate 10/05/2016 None Full Exam - ENT Cardiovascular auscultation of heart Overall: normal heart sounds 10/05/2016 None Full Exam - ENT Abdomen abdominal exam Overall: normal bowel sounds 10/05/2016 None Full Exam - ENT Lymphatic palpation of lymph nodes Overall: anterior cervical chain benign 10/05/2016 None Full Exam - ENT Lymphatic palpation of lymph nodes Overall: posterior cervical chain benign 10/05/2016 None Full Exam - ENT Integument inspection of skin Overall: no rash, lesions 10/05/2016 None Full Exam - ENT Neurologic mood and affect Overall: normal mood 10/05/2016 None Full Exam - ENT Neurologic mood and affect Overall: normal affect 10/05/2016 None Full Exam - ENT Face and Head palpation Overall: no sinus tenderness 10/05/2016 None Full Exam - General 1994 Constitutional general appearance Overall: well developed 04/14/2016 None Full Exam - General 1994 Constitutional general appearance Overall: in no acute distress 04/14/2016 None Full Exam - General 1994 Constitutional general appearance Overall: well nourished 04/14/2016 None Full Exam - General 1994 Ears/Nose/Throat oral cavity/pharynx/larynx Overall: oral mucosa clear 04/14/2016 None Full Exam - General 1994 Ears/Nose/Throat oral cavity/pharynx/larynx Overall: oropharyngeal mucosa clear 04/14/2016 None Full Exam - General 1994 Ears/Nose/Throat oral cavity/pharynx/larynx Overall: no masses 04/14/2016 None Full Exam - General 1994 Respiratory auscultation Overall: breath sounds clear bilaterally 04/14/2016 None Full Exam - General 1994 Respiratory respiratory effort/rhythm Overall: no retractions 04/14/2016 None Full Exam - General 1994 Respiratory respiratory effort/rhythm Overall: normal rate 04/14/2016 None Full Exam - General 1994 Cardiovascular auscultation of heart Overall: regular rate 04/14/2016 None Full Exam - General 1994 Cardiovascular auscultation of heart Overall: normal heart sounds 04/14/2016 None Full Exam - General 1994 Cardiovascular auscultation of heart Systolic murmur: holosystolic 04/14/2016 None Full Exam - General 1994 Cardiovascular auscultation of heart Systolic murmur grade: III/ 04/14/2016 None Full Exam - General 1994 Abdomen abdominal exam Overall: no tenderness 04/14/2016 None Full Exam - General 1994 Abdomen abdominal exam Overall: normal bowel sounds 04/14/2016 None Full Exam - General 1994 Musculoskeletal head and neck Overall: head atraumatic 04/14/2016 None Full Exam - General 1994 Neurologic cranial nerves Overall: crainial nerves 2 - 12 grossly intact 04/14/2016 None Full Exam - General 1994 Psychiatric orientation/consciousness Overall: oriented to person, place and time 04/14/2016 None Full Exam - General 1994 Psychiatric mood and affect Overall: normal mood and affect 04/14/2016 None Full Exam - General 1994 Psychiatric mood and affect Mood: happy 04/14/2016 None Full Exam - General 1994 Integument inspection of skin Location: neck 04/14/2016 healing surgical incision left neck Full Exam - General 1994 Constitutional general appearance Overall: well developed 01/13/2016 None Full Exam - General 1994 Constitutional general appearance Overall: in no acute distress 01/13/2016 None Full Exam - General 1994 Constitutional general appearance Overall: well nourished 01/13/2016 None Full Exam - General 1994 Ears/Nose/Throat oral cavity/pharynx/larynx Overall: oral mucosa clear 01/13/2016 None Full Exam - General 1994 Ears/Nose/Throat oral cavity/pharynx/larynx Overall: oropharyngeal mucosa clear 01/13/2016 None Full Exam - General 1994 Ears/Nose/Throat oral cavity/pharynx/larynx Overall: no masses 01/13/2016 None Full Exam - General 1994 Respiratory auscultation Overall: breath sounds clear bilaterally 01/13/2016 None Full Exam - General 1994 Respiratory respiratory effort/rhythm Overall: no retractions 01/13/2016 None Full Exam - General 1994 Respiratory respiratory effort/rhythm Overall: normal rate 01/13/2016 None Full Exam - General 1994 Cardiovascular auscultation of heart Overall: regular rate 01/13/2016 None Full Exam - General 1994 Cardiovascular auscultation of heart Overall: normal heart sounds 01/13/2016 None Full Exam - General 1994 Abdomen abdominal exam Overall: no tenderness 01/13/2016 None Full Exam - General 1994 Abdomen abdominal exam Overall: normal bowel sounds 01/13/2016 None Full Exam - General 1994 Musculoskeletal head and neck Overall: head atraumatic 01/13/2016 None Full Exam - General 1994 Neurologic cranial nerves Overall: crainial nerves 2 - 12 grossly intact 01/13/2016 None Full Exam - General 1994 Psychiatric orientation/consciousness Overall: oriented to person, place and time 01/13/2016 None Full Exam - General 1994 Psychiatric mood and affect Overall: normal mood and affect 01/13/2016 None Full Exam - General 1994 Psychiatric mood and affect Mood: happy 01/13/2016 None Full Exam - General 1994 Cardiovascular auscultation of heart Systolic murmur: holosystolic 01/13/2016 None Full Exam - General 1994 Cardiovascular auscultation of heart Systolic murmur grade: III/ 01/13/2016 None Full Exam - General 1994 Constitutional general appearance Overall: well developed 10/11/2015 None Full Exam - General 1994 Constitutional general appearance Overall: in no acute distress 10/11/2015 None Full Exam - General 1994 Constitutional general appearance Overall: well nourished 10/11/2015 None Full Exam - General 1994 Ears/Nose/Throat oral cavity/pharynx/larynx Overall: oral mucosa clear 10/11/2015 None Full Exam - General 1994 Ears/Nose/Throat oral cavity/pharynx/larynx Overall: oropharyngeal mucosa clear 10/11/2015 None Full Exam - General 1994 Ears/Nose/Throat oral cavity/pharynx/larynx Overall: no masses 10/11/2015 None Full Exam - General 1994 Respiratory auscultation Overall: breath sounds clear bilaterally 10/11/2015 None Full Exam - General 1994 Respiratory respiratory effort/rhythm Overall: no retractions 10/11/2015 None Full Exam - General 1994 Respiratory respiratory effort/rhythm Overall: normal rate 10/11/2015 None Full Exam - General 1994 Cardiovascular auscultation of heart Overall: regular rate 10/11/2015 None Full Exam - General 1994 Cardiovascular auscultation of heart Overall: normal heart sounds 10/11/2015 None Full Exam - General 1994 Cardiovascular auscultation of heart Overall: no murmurs 10/11/2015 None Full Exam - General 1994 Abdomen abdominal exam Overall: no tenderness 10/11/2015 None Full Exam - General 1994 Abdomen abdominal exam Overall: normal bowel sounds 10/11/2015 None Full Exam - General 1994 Neurologic cranial nerves Overall: crainial nerves 2 - 12 grossly intact 10/11/2015 None Full Exam - General 1994 Psychiatric orientation/consciousness Overall: oriented to person, place and time 10/11/2015 None Full Exam - General 1994 Psychiatric mood and affect Overall: normal mood and affect 10/11/2015 None Full Exam - General 1994 Psychiatric mood and affect Mood: happy 10/11/2015 None Full Exam - General 1994 Musculoskeletal head and neck Overall: head atraumatic 10/11/2015 None Full Exam - General 1994 Constitutional general appearance Overall: well developed 08/09/2015 None Full Exam - General 1994 Constitutional general appearance Overall: in no acute distress 08/09/2015 None Full Exam - General 1994 Constitutional general appearance Overall: well nourished 08/09/2015 None Full Exam - General 1994 Eyes pupils and irises Overall: pupils equal, round, reactive to light and accomodation 08/09/2015 None Full Exam - General 1994 Ears/Nose/Throat oral cavity/pharynx/larynx Overall: oral mucosa clear 08/09/2015 None Full Exam - General 1994 Ears/Nose/Throat oral cavity/pharynx/larynx Overall: oropharyngeal mucosa clear 08/09/2015 None Full Exam - General 1994 Ears/Nose/Throat oral cavity/pharynx/larynx Overall: no masses 08/09/2015 None Full Exam - General 1994 Respiratory auscultation Overall: breath sounds clear bilaterally 08/09/2015 None Full Exam - General 1994 Respiratory respiratory effort/rhythm Overall: no retractions 08/09/2015 None Full Exam - General 1994 Respiratory respiratory effort/rhythm Overall: normal rate 08/09/2015 None Full Exam - General 1994 Cardiovascular auscultation of heart Overall: regular rate 08/09/2015 None Full Exam - General 1994 Cardiovascular auscultation of heart Overall: normal heart sounds 08/09/2015 None Full Exam - General 1994 Cardiovascular auscultation of heart Systolic murmur: holosystolic 08/09/2015 None Full Exam - General 1994 Cardiovascular auscultation of heart Systolic murmur grade: III/ 08/09/2015 None Full Exam - General 1994 Abdomen abdominal exam Overall: no tenderness 08/09/2015 None Full Exam - General 1994 Abdomen abdominal exam Overall: normal bowel sounds 08/09/2015 None Full Exam - General 1994 Musculoskeletal lower extremity ROM - knee: a normal exam 08/09/2015 None Full Exam - General 1994 Musculoskeletal spine, ribs and pelvis Spine: a normal exam 08/09/2015 None Full Exam - General 1994 Musculoskeletal head and neck Overall: head atraumatic 08/09/2015 None Full Exam - General 1994 Musculoskeletal head and neck Overall: cervical spine benign 08/09/2015 None Full Exam - General 1994 Neurologic cranial nerves Overall: crainial nerves 2 - 12 grossly intact 08/09/2015 None Full Exam - General 1994 Psychiatric orientation/consciousness Overall: oriented to person, place and time 08/09/2015 None Full Exam - General 1994 Psychiatric mood and affect Overall: normal mood and affect 08/09/2015 None Full Exam - General 1994 Psychiatric mood and affect Mood: happy 08/09/2015 None Full Exam - General 1994 Musculoskeletal gait and station Gait: abnormal toe off 08/09/2015 on right Full Exam - General 1994 Musculoskeletal gait and station Gait: abnormal swing through 08/09/2015 on right Full Exam - General 1994 Integument inspection of skin Location: back 08/09/2015 healing incision low back with steri strips d/i Full Exam - General 1994 Constitutional general appearance Overall: well developed 05/24/2015 None Full Exam - General 1994 Constitutional general appearance Overall: in no acute distress 05/24/2015 None Full Exam - General 1994 Constitutional general appearance Overall: well nourished 05/24/2015 None Full Exam - General 1994 Eyes pupils and irises Overall: pupils equal, round, reactive to light and accomodation 05/24/2015 None Full Exam - General 1994 Ears/Nose/Throat oral cavity/pharynx/larynx Overall: oral mucosa clear 05/24/2015 None Full Exam - General 1994 Ears/Nose/Throat oral cavity/pharynx/larynx Overall: oropharyngeal mucosa clear 05/24/2015 None Full Exam - General 1994 Ears/Nose/Throat oral cavity/pharynx/larynx Overall: no masses 05/24/2015 None Full Exam - General 1994 Respiratory auscultation Overall: breath sounds clear bilaterally 05/24/2015 None Full Exam - General 1994 Respiratory respiratory effort/rhythm Overall: no retractions 05/24/2015 None Full Exam - General 1994 Respiratory respiratory effort/rhythm Overall: normal rate 05/24/2015 None Full Exam - General 1994 Cardiovascular auscultation of heart Overall: regular rate 05/24/2015 None Full Exam - General 1994 Cardiovascular auscultation of heart Overall: normal heart sounds 05/24/2015 None Full Exam - General 1994 Cardiovascular auscultation of heart Systolic murmur: holosystolic 05/24/2015 None Full Exam - General 1994 Cardiovascular auscultation of heart Systolic murmur grade: III/ 05/24/2015 None Full Exam - General 1994 Abdomen abdominal exam Overall: no tenderness 05/24/2015 None Full Exam - General 1994 Abdomen abdominal exam Overall: normal bowel sounds 05/24/2015 None Full Exam - General 1994 Musculoskeletal lower extremity ROM - knee: a normal exam 05/24/2015 None Full Exam - General 1994 Musculoskeletal spine, ribs and pelvis Palpation: tender at greater trochanter 05/24/2015 full ROM of hip joints bilaterally Full Exam - General 1994 Musculoskeletal gait and station Gait: abnormal toe off 05/24/2015 on right Full Exam - General 1994 Musculoskeletal gait and station Gait: abnormal swing through 05/24/2015 on right Full Exam - General 1994 Musculoskeletal head and neck Overall: head atraumatic 05/24/2015 None Full Exam - General 1994 Musculoskeletal head and neck Overall: cervical spine benign 05/24/2015 None Full Exam - General 1994 Neurologic cranial nerves Overall: crainial nerves 2 - 12 grossly intact 05/24/2015 None Full Exam - General 1994 Psychiatric orientation/consciousness Overall: oriented to person, place and time 05/24/2015 None Full Exam - General 1994 Psychiatric mood and affect Overall: normal mood and affect 05/24/2015 None Full Exam - General 1994 Psychiatric mood and affect Mood: happy 05/24/2015 None Full Exam - General 1994 Musculoskeletal spine, ribs and pelvis Spine: a normal exam 05/24/2015 None Full Exam - General 1994 Constitutional general appearance Overall: well developed 04/24/2015 None Full Exam - General 1994 Constitutional general appearance Overall: in no acute distress 04/24/2015 None Full Exam - General 1994 Constitutional general appearance Overall: well nourished 04/24/2015 None Full Exam - General 1994 Ears/Nose/Throat oral cavity/pharynx/larynx Overall: oral mucosa clear 04/24/2015 None Full Exam - General 1994 Ears/Nose/Throat oral cavity/pharynx/larynx Overall: oropharyngeal mucosa clear 04/24/2015 None Full Exam - General 1994 Ears/Nose/Throat oral cavity/pharynx/larynx Overall: no masses 04/24/2015 None Full Exam - General 1994 Respiratory auscultation Overall: breath sounds clear bilaterally 04/24/2015 None Full Exam - General 1994 Respiratory respiratory effort/rhythm Overall: no retractions 04/24/2015 None Full Exam - General 1994 Respiratory respiratory effort/rhythm Overall: normal rate 04/24/2015 None Full Exam - General 1994 Cardiovascular auscultation of heart Overall: regular rate 04/24/2015 None Full Exam - General 1994 Cardiovascular auscultation of heart Overall: normal heart sounds 04/24/2015 None Full Exam - General 1994 Cardiovascular auscultation of heart Overall: no murmurs 04/24/2015 None Full Exam - General 1994 Abdomen abdominal exam Overall: no tenderness 04/24/2015 None Full Exam - General 1994 Abdomen abdominal exam Overall: normal bowel sounds 04/24/2015 None Full Exam - General 1994 Neurologic cranial nerves Overall: crainial nerves 2 - 12 grossly intact 04/24/2015 None Full Exam - General 1994 Psychiatric orientation/consciousness Overall: oriented to person, place and time 04/24/2015 None Full Exam - General 1994 Psychiatric mood and affect Overall: normal mood and affect 04/24/2015 None Full Exam - General 1994 Psychiatric mood and affect Mood: happy 04/24/2015 None Full Exam - General 1994 Eyes pupils and irises Overall: pupils equal, round, reactive to light and accomodation 04/24/2015 None Full Exam - General 1995 Lymphatic neck nodes Overall: anterior cervical chain benign 04/24/2015 None Full Exam - General 1995 Lymphatic neck nodes Overall: posterior cervical chain benign 04/24/2015 None Full Exam - ENT Constitutional general appearance Overall: well nourished 02/14/2015 None Full Exam - ENT Constitutional general appearance Overall: well developed 02/14/2015 None Full Exam - ENT Constitutional general appearance Overall: in no acute distress 02/14/2015 None Full Exam - ENT Neurologic mood and affect Overall: normal mood 02/14/2015 None Full Exam - ENT Neurologic mood and affect Overall: normal affect 02/14/2015 None Full Exam - ENT Integument inspection of skin Overall: no rash, lesions 02/14/2015 None Full Exam - ENT Lymphatic palpation of lymph nodes Overall: anterior cervical chain benign 02/14/2015 None Full Exam - ENT Lymphatic palpation of lymph nodes Overall: posterior cervical chain benign 02/14/2015 None Full Exam - ENT Abdomen abdominal exam Overall: normal bowel sounds 02/14/2015 None Full Exam - ENT Cardiovascular auscultation of heart Overall: regular rate 02/14/2015 None Full Exam - ENT Cardiovascular auscultation of heart Overall: normal heart sounds 02/14/2015 None Full Exam - ENT Respiratory auscultation Overall: breath sounds clear bilaterally 02/14/2015 None Full Exam - ENT Ears/Nose/Throat otoscopic exam Overall: external auditory canals normal 02/14/2015 None Full Exam - ENT Ears/Nose/Throat otoscopic exam Left tympanic membrane: air -fluid level 02/14/2015 None Full Exam - ENT Ears/Nose/Throat otoscopic exam Right tympanic membrane: air-fluid level 02/14/2015 None Full Exam - ENT Constitutional communication assessment Overall: normal mode of communication 02/14/2015 None Full Exam - ENT Face and Head palpation Left maxillary sinus: tender 02/14/2015 None Full Exam - ENT Face and Head palpation Right maxillary sinus: tender 02/14/2015 None Full Exam - ENT Face and Head palpation Left frontal sinus: tender 02/14/2015 None Full Exam - ENT Face and Head palpation Right frontal sinus: tender 02/14/2015 None Full Exam - General 1994 Constitutional general appearance Overall: well developed 10/22/2014 None Full Exam - General 1994 Constitutional general appearance Overall: in no acute distress 10/22/2014 None Full Exam - General 1994 Constitutional general appearance Overall: well nourished 10/22/2014 None Full Exam - General 1994 Eyes pupils and irises Overall: pupils equal, round, reactive to light and accomodation 10/22/2014 None Full Exam - General 1994 Ears/Nose/Throat oral cavity/pharynx/larynx Overall: oral mucosa clear 10/22/2014 None Full Exam - General 1994 Ears/Nose/Throat oral cavity/pharynx/larynx Overall: oropharyngeal mucosa clear 10/22/2014 None Full Exam - General 1994 Ears/Nose/Throat oral cavity/pharynx/larynx Overall: no masses 10/22/2014 None Full Exam - General 1994 Respiratory auscultation Overall: breath sounds clear bilaterally 10/22/2014 None Full Exam - General 1994 Respiratory respiratory effort/rhythm Overall: no retractions 10/22/2014 None Full Exam - General 1994 Respiratory respiratory effort/rhythm Overall: normal rate 10/22/2014 None Full Exam - General 1994 Cardiovascular auscultation of heart Overall: regular rate 10/22/2014 None Full Exam - General 1994 Cardiovascular auscultation of heart Overall: normal heart sounds 10/22/2014 None Full Exam - General 1994 Cardiovascular auscultation of heart Overall: no murmurs 10/22/2014 None Full Exam - General 1994 Abdomen abdominal exam Overall: no tenderness 10/22/2014 None Full Exam - General 1994 Abdomen abdominal exam Overall: normal bowel sounds 10/22/2014 None Full Exam - General 1994 Musculoskeletal lower extremity Palpation - knee: crepitus 10/22/2014 None Full Exam - General 1994 Musculoskeletal lower extremity ROM - knee: a normal exam 10/22/2014 None Full Exam - General 1994 Musculoskeletal spine, ribs and pelvis Palpation: tender at greater trochanter 10/22/2014 full ROM of hip joints bilaterally Full Exam - General 1994 Musculoskeletal gait and station Gait: abnormal toe off 10/22/2014 on right Full Exam - General 1994 Musculoskeletal gait and station Gait: abnormal swing through 10/22/2014 on right Full Exam - General 1994 Musculoskeletal head and neck Overall: head atraumatic 10/22/2014 None Full Exam - General 1994 Musculoskeletal head and neck Overall: cervical spine benign 10/22/2014 None Full Exam - General 1994 Neurologic cranial nerves Overall: crainial nerves 2 - 12 grossly intact 10/22/2014 None Full Exam - General 1994 Psychiatric orientation/consciousness Overall: oriented to person, place and time 10/22/2014 None Full Exam - General 1994 Psychiatric mood and affect Overall: normal mood and affect 10/22/2014 None Full Exam - General 1994 Psychiatric mood and affect Mood: happy 10/22/2014 None Full Exam - General 1994 Cardiovascular auscultation of heart Systolic murmur: holosystolic 10/22/2014 None Full Exam - General 1994 Cardiovascular auscultation of heart Systolic murmur grade: III/ 10/22/2014 None Full Exam - General 1994 Constitutional general appearance Overall: well developed 08/22/2014 None Full Exam - General 1994 Constitutional general appearance Overall: in no acute distress 08/22/2014 None Full Exam - General 1994 Constitutional general appearance Overall: well nourished 08/22/2014 None Full Exam - General 1994 Ears/Nose/Throat oral cavity/pharynx/larynx Overall: oral mucosa clear 08/22/2014 None Full Exam - General 1994 Ears/Nose/Throat oral cavity/pharynx/larynx Overall: oropharyngeal mucosa clear 08/22/2014 None Full Exam - General 1994 Ears/Nose/Throat oral cavity/pharynx/larynx Overall: no masses 08/22/2014 None Full Exam - General 1994 Respiratory auscultation Overall: breath sounds clear bilaterally 08/22/2014 None Full Exam - General 1994 Respiratory respiratory effort/rhythm Overall: no retractions 08/22/2014 None Full Exam - General 1994 Respiratory respiratory effort/rhythm Overall: normal rate 08/22/2014 None Full Exam - General 1994 Cardiovascular auscultation of heart Overall: regular rate 08/22/2014 None Full Exam - General 1994 Cardiovascular auscultation of heart Overall: normal heart sounds 08/22/2014 None Full Exam - General 1994 Cardiovascular auscultation of heart Overall: no murmurs 08/22/2014 None Full Exam - General 1994 Abdomen abdominal exam Overall: no tenderness 08/22/2014 None Full Exam - General 1994 Abdomen abdominal exam Overall: normal bowel sounds 08/22/2014 None Full Exam - General 1994 Neurologic cranial nerves Overall: crainial nerves 2 - 12 grossly intact 08/22/2014 None Full Exam - General 1994 Psychiatric orientation/consciousness Overall: oriented to person, place and time 08/22/2014 None Full Exam - General 1994 Psychiatric mood and affect Overall: normal mood and affect 08/22/2014 None Full Exam - General 1994 Psychiatric mood and affect Mood: happy 08/22/2014 None Full Exam - General 1994 Eyes pupils and irises Overall: pupils equal, round, reactive to light and accomodation 08/22/2014 None Full Exam - General 1994 Musculoskeletal lower extremity Palpation - knee: crepitus 08/22/2014 None Full Exam - General 1994 Musculoskeletal lower extremity ROM - knee: a normal exam 08/22/2014 None Full Exam - General 1994 Musculoskeletal spine, ribs and pelvis Palpation: tender at greater trochanter 08/22/2014 full ROM of hip joints bilaterally Full Exam - General 1994 Musculoskeletal gait and station Gait: abnormal toe off 08/22/2014 on right Full Exam - General 1994 Musculoskeletal gait and station Gait: abnormal swing through 08/22/2014 on right Full Exam - General 1994 Musculoskeletal head and neck Overall: cervical spine benign 08/22/2014 None Full Exam - General 1994 Musculoskeletal head and neck Overall: head atraumatic 08/22/2014 None Full Exam - General 1994 Constitutional general appearance Overall: well developed 02/21/2014 None Full Exam - General 1994 Constitutional general appearance Overall: in no acute distress 02/21/2014 None Full Exam - General 1994 Constitutional general appearance Overall: well nourished 02/21/2014 None Full Exam - General 1994 Ears/Nose/Throat oral cavity/pharynx/larynx Overall: oral mucosa clear 02/21/2014 None Full Exam - General 1994 Ears/Nose/Throat oral cavity/pharynx/larynx Overall: oropharyngeal mucosa clear 02/21/2014 None Full Exam - General 1994 Ears/Nose/Throat oral cavity/pharynx/larynx Overall: no masses 02/21/2014 None Full Exam - General 1994 Respiratory auscultation Overall: breath sounds clear bilaterally 02/21/2014 None Full Exam - General 1994 Respiratory respiratory effort/rhythm Overall: no retractions 02/21/2014 None Full Exam - General 1994 Respiratory respiratory effort/rhythm Overall: normal rate 02/21/2014 None Full Exam - General 1994 Cardiovascular auscultation of heart Overall: regular rate 02/21/2014 None Full Exam - General 1994 Cardiovascular auscultation of heart Overall: normal heart sounds 02/21/2014 None Full Exam - General 1994 Cardiovascular auscultation of heart Overall: no murmurs 02/21/2014 None Full Exam - General 1994 Neurologic cranial nerves Overall: crainial nerves 2 - 12 grossly intact 02/21/2014 None Full Exam - General 1994 Psychiatric orientation/consciousness Overall: oriented to person, place and time 02/21/2014 None Full Exam - General 1994 Psychiatric mood and affect Overall: normal mood and affect 02/21/2014 None Full Exam - General 1994 Psychiatric mood and affect Mood: happy 02/21/2014 None Full Exam - General 1994 Abdomen abdominal exam Overall: no tenderness 02/21/2014 None Full Exam - General 1994 Abdomen abdominal exam Overall: normal bowel sounds 02/21/2014 None Full Exam - General 1994 Constitutional general appearance Overall: well developed 12/19/2013 None Full Exam - General 1994 Ears/Nose/Throat oral cavity/pharynx/larynx Overall: oral mucosa clear 12/19/2013 None Full Exam - General 1994 Ears/Nose/Throat oral cavity/pharynx/larynx Overall: oropharyngeal mucosa clear 12/19/2013 None Full Exam - General 1994 Ears/Nose/Throat oral cavity/pharynx/larynx Overall: no masses 12/19/2013 None Full Exam - General 1994 Respiratory auscultation Overall: breath sounds clear bilaterally 12/19/2013 None Full Exam - General 1994 Respiratory respiratory effort/rhythm Overall: no retractions 12/19/2013 None Full Exam - General 1994 Respiratory respiratory effort/rhythm Overall: normal rate 12/19/2013 None Full Exam - General 1994 Cardiovascular auscultation of heart Overall: regular rate 12/19/2013 None Full Exam - General 1994 Cardiovascular auscultation of heart Overall: normal heart sounds 12/19/2013 None Full Exam - General 1994 Cardiovascular auscultation of heart Overall: no murmurs 12/19/2013 None Full Exam - General 1994 Neurologic cranial nerves Overall: crainial nerves 2 - 12 grossly intact 12/19/2013 None Full Exam - General 1994 Psychiatric orientation/consciousness Overall: oriented to person, place and time 12/19/2013 None Full Exam - General 1994 Psychiatric mood and affect Overall: normal mood and affect 12/19/2013 None Full Exam - General 1994 Psychiatric mood and affect Mood: happy 12/19/2013 None Full Exam - General 1994 Abdomen abdominal exam Bowel sounds: hypoactive 12/19/2013 None Full Exam - General 1994 Abdomen abdominal exam Contour: rounded 12/19/2013 None Full Exam - General 1994 Abdomen abdominal exam Overall: no tenderness 12/19/2013 None Full Exam - General 1994 Constitutional general appearance Overall: well developed 12/04/2013 None Full Exam - General 1994 Ears/Nose/Throat oral cavity/pharynx/larynx Overall: oral mucosa clear 12/04/2013 None Full Exam - General 1994 Ears/Nose/Throat oral cavity/pharynx/larynx Overall: oropharyngeal mucosa clear 12/04/2013 None Full Exam - General 1994 Ears/Nose/Throat oral cavity/pharynx/larynx Overall: no masses 12/04/2013 None Full Exam - General 1994 Respiratory auscultation Overall: breath sounds clear bilaterally 12/04/2013 None Full Exam - General 1994 Respiratory respiratory effort/rhythm Overall: no retractions 12/04/2013 None Full Exam - General 1994 Respiratory respiratory effort/rhythm Overall: normal rate 12/04/2013 None Full Exam - General 1994 Cardiovascular auscultation of heart Overall: regular rate 12/04/2013 None Full Exam - General 1994 Cardiovascular auscultation of heart Overall: normal heart sounds 12/04/2013 None Full Exam - General 1994 Cardiovascular auscultation of heart Overall: no murmurs 12/04/2013 None Full Exam - General 1994 Abdomen abdominal exam Overall: no tenderness 12/04/2013 None Full Exam - General 1994 Abdomen abdominal exam Contour: flat 12/04/2013 None Full Exam - General 1994 Neurologic cranial nerves Overall: crainial nerves 2 - 12 grossly intact 12/04/2013 None Full Exam - General 1994 Psychiatric orientation/consciousness Overall: oriented to person, place and time 12/04/2013 None Full Exam - General 1994 Psychiatric mood and affect Overall: normal mood and affect 12/04/2013 None Full Exam - General 1994 Psychiatric mood and affect Mood: happy 12/04/2013 None Full Exam - General 1994 Abdomen abdominal exam Bowel sounds: a normal exam 12/04/2013 None Full Exam - General 1994 Constitutional general appearance Overall: well developed 11/23/2013 None Full Exam - General 1994 Constitutional general appearance Overall: in no acute distress 11/23/2013 None Full Exam - General 1994 Constitutional general appearance Overall: well nourished 11/23/2013 None Full Exam - General 1994 Ears/Nose/Throat oral cavity/pharynx/larynx Overall: oral mucosa clear 11/23/2013 None Full Exam - General 1994 Ears/Nose/Throat oral cavity/pharynx/larynx Overall: oropharyngeal mucosa clear 11/23/2013 None Full Exam - General 1994 Ears/Nose/Throat oral cavity/pharynx/larynx Overall: no masses 11/23/2013 None Full Exam - General 1995 Respiratory auscultation Overall: breath sounds clear bilaterally 11/23/2013 None Full Exam - General 1994 Respiratory respiratory effort/rhythm Overall: no retractions 11/23/2013 None Full Exam - General 1994 Respiratory respiratory effort/rhythm Overall: normal rate 11/23/2013 None Full Exam - General 1994 Cardiovascular auscultation of heart Overall: regular rate 11/23/2013 None Full Exam - General 1994 Cardiovascular auscultation of heart Overall: normal heart sounds 11/23/2013 None Full Exam - General 1994 Cardiovascular auscultation of heart Overall: no murmurs 11/23/2013 None Full Exam - General 1994 Neurologic cranial nerves Overall: crainial nerves 2 - 12 grossly intact 11/23/2013 None Full Exam - General 1994 Psychiatric orientation/consciousness Overall: oriented to person, place and time 11/23/2013 None Full Exam - General 1994 Psychiatric mood and affect Overall: normal mood and affect 11/23/2013 None Full Exam - General 1994 Psychiatric mood and affect Mood: happy 11/23/2013 None Full Exam - General 1994 Constitutional general appearance Overall: well developed 10/31/2013 None Full Exam - General 1995 Ears/Nose/Throat oral cavity/pharynx/larynx Overall: oral mucosa clear 10/31/2013 None Full Exam - General 1995 Ears/Nose/Throat oral cavity/pharynx/larynx Overall: oropharyngeal mucosa clear 10/31/2013 None Full Exam - General 1995 Ears/Nose/Throat oral cavity/pharynx/larynx Overall: no masses 10/31/2013 None Full Exam - General 1994 Respiratory auscultation Overall: breath sounds clear bilaterally 10/31/2013 None Full Exam - General 1994 Respiratory respiratory effort/rhythm Overall: no retractions 10/31/2013 None Full Exam - General 1994 Respiratory respiratory effort/rhythm Overall: normal rate 10/31/2013 None Full Exam - General 1994 Cardiovascular auscultation of heart Overall: regular rate 10/31/2013 None Full Exam - General 1994 Cardiovascular auscultation of heart Overall: normal heart sounds 10/31/2013 None Full Exam - General 1994 Cardiovascular auscultation of heart Overall: no murmurs 10/31/2013 None Full Exam - General 1994 Abdomen abdominal exam Overall: no tenderness 10/31/2013 None Full Exam - General 1994 Neurologic cranial nerves Overall: crainial nerves 2 - 12 grossly intact 10/31/2013 None Full Exam - General 1994 Psychiatric orientation/consciousness Overall: oriented to person, place and time 10/31/2013 None Full Exam - General 1994 Psychiatric mood and affect Overall: normal mood and affect 10/31/2013 None Full Exam - General 1994 Psychiatric mood and affect Mood: happy 10/31/2013 None Full Exam - General 1994 Abdomen abdominal exam Bowel sounds: hypoactive 10/31/2013 None Full Exam - General 1994 Abdomen abdominal exam Contour: flat 10/31/2013 None Full Exam - General 1994 Constitutional general appearance Overall: well developed 10/18/2013 None Full Exam - General 1994 Constitutional general appearance Overall: in no acute distress 10/18/2013 None Full Exam - General 1994 Constitutional general appearance Overall: well nourished 10/18/2013 None Full Exam - General 1994 Ears/Nose/Throat oral cavity/pharynx/larynx Overall: oral mucosa clear 10/18/2013 None Full Exam - General 1994 Ears/Nose/Throat oral cavity/pharynx/larynx Overall: oropharyngeal mucosa clear 10/18/2013 None Full Exam - General 1994 Ears/Nose/Throat oral cavity/pharynx/larynx Overall: no masses 10/18/2013 None Full Exam - General 1994 Respiratory auscultation Overall: breath sounds clear bilaterally 10/18/2013 None Full Exam - General 1994 Respiratory respiratory effort/rhythm Overall: no retractions 10/18/2013 None Full Exam - General 1994 Respiratory respiratory effort/rhythm Overall: normal rate 10/18/2013 None Full Exam - General 1994 Cardiovascular auscultation of heart Overall: regular rate 10/18/2013 None Full Exam - General 1994 Cardiovascular auscultation of heart Overall: normal heart sounds 10/18/2013 None Full Exam - General 1994 Cardiovascular auscultation of heart Overall: no murmurs 10/18/2013 None Full Exam - General 1994 Neurologic cranial nerves Overall: crainial nerves 2 - 12 grossly intact 10/18/2013 None Full Exam - General 1994 Psychiatric orientation/consciousness Overall: oriented to person, place and time 10/18/2013 None Full Exam - General 1994 Psychiatric mood and affect Overall: normal mood and affect 10/18/2013 None Full Exam - General 1994 Psychiatric mood and affect Mood: happy 10/18/2013 None Full Exam - General 1994 Abdomen abdominal exam Overall: no tenderness 10/18/2013 None Full Exam - General 1994 Abdomen abdominal exam Bowel sounds: hyperactive 10/18/2013 None Full Exam - General 1994 Constitutional general appearance Overall: well developed 08/30/2013 None Full Exam - General 1995 Constitutional general appearance Overall: in no acute distress 08/30/2013 None Full Exam - General 1995 Constitutional general appearance Overall: well nourished 08/30/2013 None Full Exam - General 1995 Ears/Nose/Throat oral cavity/pharynx/larynx Overall: oral mucosa clear 08/30/2013 None Full Exam - General 1995 Ears/Nose/Throat oral cavity/pharynx/larynx Overall: oropharyngeal mucosa clear 08/30/2013 None Full Exam - General 1995 Ears/Nose/Throat oral cavity/pharynx/larynx Overall: no masses 08/30/2013 None Full Exam - General 1994 Respiratory auscultation Overall: breath sounds clear bilaterally 08/30/2013 None Full Exam - General 1994 Respiratory respiratory effort/rhythm Overall: no retractions 08/30/2013 None Full Exam - General 1994 Respiratory respiratory effort/rhythm Overall: normal rate 08/30/2013 None Full Exam - General 1994 Cardiovascular auscultation of heart Overall: regular rate 08/30/2013 None Full Exam - General 1994 Cardiovascular auscultation of heart Overall: normal heart sounds 08/30/2013 None Full Exam - General 1994 Cardiovascular auscultation of heart Overall: no murmurs 08/30/2013 None Full Exam - General 1994 Neurologic cranial nerves Overall: crainial nerves 2 - 12 grossly intact 08/30/2013 None Full Exam - General 1994 Psychiatric orientation/consciousness Overall: oriented to person, place and time 08/30/2013 None Full Exam - General 1994 Psychiatric mood and affect Overall: normal mood and affect 08/30/2013 None Full Exam - General 1994 Psychiatric mood and affect Mood: happy 08/30/2013 None Full Exam - General 1994 Constitutional general appearance Overall: well nourished 06/21/2013 None Full Exam - General 1994 Constitutional general appearance Overall: well developed 06/21/2013 None Full Exam - General 1994 Constitutional general appearance Overall: in no acute distress 06/21/2013 None Full Exam - General 1995 Ears/Nose/Throat oral cavity/pharynx/larynx Overall: oropharyngeal mucosa clear 06/21/2013 None Full Exam - General 1995 Ears/Nose/Throat oral cavity/pharynx/larynx Overall: no masses 06/21/2013 None Full Exam - General 1995 Ears/Nose/Throat oral cavity/pharynx/larynx Overall: oral mucosa clear 06/21/2013 None Full Exam - General 1995 Respiratory respiratory effort/rhythm Overall: normal rate 06/21/2013 None Full Exam - General 1995 Respiratory respiratory effort/rhythm Overall: no retractions 06/21/2013 None Full Exam - General 1995 Respiratory auscultation Overall: breath sounds clear bilaterally 06/21/2013 None Full Exam - General 1995 Cardiovascular auscultation of heart Overall: regular rate 06/21/2013 None Full Exam - General 1994 Cardiovascular auscultation of heart Overall: normal heart sounds 06/21/2013 None Full Exam - General 1994 Cardiovascular auscultation of heart Overall: no murmurs 06/21/2013 None Full Exam - General 1994 Neurologic cranial nerves Overall: crainial nerves 2 - 12 grossly intact 06/21/2013 None Full Exam - General 1994 Psychiatric orientation/consciousness Overall: oriented to person, place and time 06/21/2013 None Full Exam - General 1994 Psychiatric mood and affect Mood: happy 06/21/2013 None Full Exam - General 1994 Psychiatric mood and affect Overall: normal mood and affect 06/21/2013 None Full Exam - General 1994 Respiratory auscultation Overall: breath sounds clear bilaterally 05/31/2013 None Full Exam - General 1994 Respiratory respiratory effort/rhythm Overall: no retractions 05/31/2013 None Full Exam - General 1994 Respiratory respiratory effort/rhythm Overall: normal rate 05/31/2013 None Full Exam - General 1994 Cardiovascular auscultation of heart Overall: regular rate 05/31/2013 None Full Exam - General 1994 Cardiovascular auscultation of heart Overall: normal heart sounds 05/31/2013 None Full Exam - General 1994 Cardiovascular auscultation of heart Overall: no murmurs 05/31/2013 None Full Exam - General 1994 Neurologic cranial nerves Overall: crainial nerves 2 - 12 grossly intact 05/31/2013 None Full Exam - General 1994 Psychiatric orientation/consciousness Overall: oriented to person, place and time 05/31/2013 None Full Exam - General 1994 Psychiatric mood and affect Overall: normal mood and affect 05/31/2013 None Full Exam - General 1994 Psychiatric mood and affect Mood: happy 05/31/2013 None Full Exam - General 1994 Abdomen abdominal exam Overall: no tenderness 05/31/2013 None Full Exam - General 1994 Abdomen abdominal exam Overall: normal bowel sounds 05/31/2013 None Full Exam - General 1994 Constitutional general appearance Overall: well developed 05/31/2013 None Full Exam - General 1994 Constitutional general appearance Overall: in no acute distress 05/31/2013 None Full Exam - General 1994 Constitutional general appearance Overall: well nourished 05/31/2013 None Full Exam - General 1994 Ears/Nose/Throat oral cavity/pharynx/larynx Overall: oral mucosa clear 05/31/2013 None Full Exam - General 1994 Ears/Nose/Throat oral cavity/pharynx/larynx Overall: oropharyngeal mucosa clear 05/31/2013 None Full Exam - General 1994 Ears/Nose/Throat oral cavity/pharynx/larynx Overall: no masses 05/31/2013 None Procedures Procedure Codes Date TRIAMCINOLONE ACET INJ NOS CPT-4: J3301 12/05/2018 PRESCRIP TRANSMIT VIA ERX SY CPT-4: G8553 10/11/2017 PPPS, SUBSEQ VISIT CPT -4: G0439 08/03/2017 PRESCRIP TRANSMIT VIA ERX SY CPT-4: G8553 08/02/2017 THER/PROPH/DIAG INJ SC/IM CPT-4: 29061 07/12/2017 TRIAMCINOLONE ACET INJ NOS CPT-4: J3301 07/12/2017 PRESCRIP TRANSMIT VIA ERX SY CPT-4: G8553 01/19/2017 TRIAMCINOLONE ACET INJ NOS CPT-4: J3301 10/05/2016 TRIAMCINOLONE ACET INJ NOS CPT-4: J3301 04/14/2016 THER/PROPH/DIAG INJ SC/IM CPT-4: 12094 04/14/2016 THER/PROPH/DIAG INJ SC/IM CPT-4: 29369 02/14/2015 TRIAMCINOLONE ACET INJ NOS CPT-4: J3301 02/14/2015 ROCEPHIN, PER 250 MG CPT-4: J0696 02/14/2015 ROUTINE VENIPUNCTURE CPT-4: 83710 12/25/2013 URINALYSIS NONAUTO W/O SCOPE CPT-4: 93037 12/04/2013 ROUTINE VENIPUNCTURE CPT-4: 94937 12/04/2013 ROCEPHIN, PER 250 MG CPT-4: J0696 12/04/2013 THER/PROPH/DIAG INJ SC/IM CPT-4: 10951 12/04/2013 PRESCRIP TRANSMIT VIA ERX SY CPT-4: G8553 10/18/2013 PRESCRIP TRANSMIT VIA ERX SY CPT-4: G8553 06/21/2013 PRESCRIP TRANSMIT VIA ERX SY CPT-4: G8553 05/31/2013 Vital Signs Date Vital 12/05/2018 Blood Pressure 1: 122/66 Code : 8480-6 BMI: 26.0 Code : 59930-8 Heart Rate 1 : 85 bpm Height: 5'3" SpO2: 96% Weight: 147 lbs 08/02/2018 Blood Pressure 1: 132/64 Code : 8480-6 BMI: 25.5 Code : 56047-5 Heart Rate 1 : 87 bpm Height: 5'3" SpO2: 98% Weight: 144 lbs 04/08/2018 Blood Pressure 1: 138/78 Code : 8480-6 BMI: 25.2 Code : 13025-2 Heart Rate 1 : 89 bpm Height: 5'3" SpO2: 96% Weight: 142 lbs 01/31/2018 Blood Pressure 1: 142/64 Code : 8480-6 BMI: 25.2 Code : 49991-6 Heart Rate 1 : 88 bpm Height: 5'3" SpO2: 94% Weight: 142 lbs 01/10/2018 Blood Pressure 1: 136/70 Code : 8480-6 Heart Rate 1: 89 bpm Height: 5'3" SpO2: 95% 12/21/2017 Blood Pressure 1: 146/78 Code : 8480-6 Heart Rate 1: 96 bpm Height: 5'3" SpO2: 94% Weight: 12/03/2017 Blood Pressure 1: 142/68 Code : 8480-6 Heart Rate 1: 86 bpm Height: 5'3" SpO2: 94% 10/11/2017 Blood Pressure 1: 128/72 Code : 8480-6 BMI: 26.6 Code : 67201-6 Heart Rate 1 : 94 bpm Height: 5'3" SpO2: 98% Weight: 150 lbs 08/03/2017 Blood Pressure 1: 132/76 Code : 8480-6 BMI: 25.2 Code : 82216-3 Heart Rate 1 : 89 bpm Height: 5'3" SpO2: 97% Waist Measure (cm): 79 cm Weight: 142 lbs 08/02/2017 Blood Pressure 1: 140/58 Code : 8480-6 BMI: 25.2 Code : 19511-1 Heart Rate 1 : 61 bpm Height: 5'3" SpO2: 95% Weight: 142 lbs 07/12/2017 Blood Pressure 1: 126/60 Code : 8480-6 BMI: 25.9 Code : 88130-9 Heart Rate 1 : 84 bpm Height: 5'3" SpO2: 95% Weight: 146 lbs 06/29/2017 Blood Pressure 1: 140/76 Code : 8480-6 Blood Pressure 1: 132/70 Code: 8480-6 BMI: 25.7 Code: 53055-7 Heart Rate 1: 88 bpm Height: 5'3" SpO2: 97% Weight: 145 lbs 06/14/2017 Blood Pressure 1: 122/62 Code : 8480-6 BMI: 25.7 Code : 88971-1 Heart Rate 1 : 80 bpm Height: 5'3" SpO2: 96% Weight: 145 lbs 04/05/2017 Blood Pressure 1: 138/70 Code : 8480-6 BMI: 25.7 Code : 37105-2 Heart Rate 1 : 76 bpm Height: 5'3" SpO2: 96% Weight: 145 lbs 01/19/2017 Blood Pressure 1: 130/60 Code : 8480-6 BMI: 26.9 Code : 15785-0 Heart Rate 1 : 81 bpm Height: 5'3" SpO2: 96% Weight: 153 lbs 10/05/2016 Blood Pressure 1: 128/86 Code : 8480-6 BMI: 27.5 Code : 17660-1 Heart Rate 1 : 78 bpm Height: 5'3" SpO2: 94% Weight: 156 lbs 04/14/2016 Blood Pressure 1: 140/72 Code : 8480-6 BMI: 26.8 Code : 02244-5 Heart Rate 1 : 78 bpm Height: 5'3" SpO2: 94% Weight: 152 lbs 01/13/2016 Blood Pressure 1: 128/68 Code : 8480-6 BMI: 26.4 Code : 04732-0 Heart Rate 1 : 84 bpm Height: 5'3" SpO2: 91% Weight: 150 lbs 10/11/2015 Blood Pressure 1: 138/68 Code : 8480-6 BMI: 26.1 Code : 20102-3 Height: 5'3" Weight: 148 lbs 08/09/2015 Blood Pressure 1: 140/62 Code : 8480-6 BMI: 25.2 Code : 29409-6 Heart Rate 1 : 86 bpm Height: 5'3" SpO2: 97% Weight: 143 lbs 05/24/2015 Blood Pressure 1: 132/68 Code : 8480-6 BMI: 26.1 Code : 63101-4 Heart Rate 1 : 79 bpm Height: 5'3" SpO2: 96% Weight: 148 lbs 04/24/2015 Blood Pressure 1: 168/70 Code : 8480-6 BMI: 26.4 Code : 96495-1 Heart Rate 1 : 75 bpm Height: 5'3" SpO2: 97% Weight: 150 lbs 02/14/2015 Blood Pressure 1: 124/64 Code : 8480-6 BMI: 25.5 Code : 58133-8 Heart Rate 1 : 87 bpm Height: 5'3" SpO2: 97% Temperature: 37.6 (C) / 99.7 (F) Weight: 145 lbs 10/22/2014 Blood Pressure 1: 142/74 Code : 8480-6 Heart Rate 1: 72 bpm Weight: 148 lbs 08/22/2014 Blood Pressure 1: 132/72 Code : 8480-6 BMI: 25.9 Code : 90894-8 Heart Rate 1 : 78 bpm Height: 5'3" Weight: 147 lbs 02/21/2014 Blood Pressure 1: 124/62 Code : 8480-6 BMI: 24.3 Code : 82182-3 Heart Rate 1 : 64 bpm Height: 5'3" Weight: 138 lbs 12/19/2013 Blood Pressure 1: 124/62 Code : 8480-6 Heart Rate 1: 84 bpm SpO2: 98% Weight: 139 lbs 12/04/2013 Blood Pressure 1: 142/64 Code : 8480-6 Heart Rate 1: 88 bpm Temperature: 36.6 (C) / 97.8 (F) Weight: 139 lbs 11/23/2013 Blood Pressure 1: 126/68 Code : 8480-6 BMI: 24.0 Code : 07903-1 Heart Rate 1 : 76 bpm Height: 5'4" Weight: 142 lbs 10/31/2013 Blood Pressure 1: 110/60 Code : 8480-6 Heart Rate 1: 84 bpm SpO2: 98% Temperature: 37.6 (C) / 99.7 (F) Weight: 10/18/2013 Blood Pressure 1: 118/76 Code : 8480-6 Heart Rate 1: 88 bpm SpO2: 96% Temperature: 37.0 (C) / 98.6 (F) Weight: 148 lbs 08/30/2013 Blood Pressure 1: 128/76 Code : 8480-6 BMI: 25.3 Code : 70841-4 Heart Rate 1 : 84 bpm Height: 5'4" Weight: 150 lbs 06/21/2013 Blood Pressure 1: 140/70 Code : 8480-6 Blood Pressure 2: 148/73 Code: 8480-6 BMI: 25.0 Code: 08640-2 Heart Rate 1: 78 bpm Height: 5'4" Weight: 148 lbs 05/31/2013 Blood Pressure 1: 156/92 Code : 8480-6 BMI: 25.0 Code : 84249-8 Heart Rate 1 : 80 bpm Height: 5'4" Weight: 148 lbs Functional Status No Functional Status data History of Present Illness Symptom Name Status Result Effective Date Notes Quality chronic 12/05 None Quality primary hypertension 12/05/2018 None Onset and Resolution ongoing 12/05/2018 None Onset of Symptom during adulthood 12/05/2018 None Blood Pressure Values patient checking blood pressure at home - did not bring in readings 2018 -Checks occasionally Severity mild 2018 None Alleviating Factors medication 12/05/2018 None Pertinent Findings Denies dyspnea 12/05/2018 None Pertinent Findings Denies edema 12/05/2018 None Location-Major on the upper body 12/05/2018 None Location-Major on the lower body 12/05/2018 None Quality chronic 12/05 None Onset and Resolution ongoing 12/05/2018 None Onset of Symptom _ years ago 12/05/2018 None Length of Episodes unknown 12/05/2018 None Limitation on Activities does not limit activities 12/05/2018 None Severity worsening None Prior Treatments partially responsive to treatment 12/05/2018 None Triggers no known triggers 12/05/2018 None Alleviating Factors treatment medication 12/05/2018 None Pertinent Findings Denies dizziness 12/05/2018 None Pertinent Findings Denies fever 12/05/2018 None Pertinent Findings Denies flushing 12/05/2018 None Pertinent Findings Denies pain 12/05/2018 None Pertinent Findings Denies tenderness 12/05/2018 None hypertension Quality chronic 08/02/2018 None hypertension Quality primary hypertension 08/02/2018 None hypertension Onset and Resolution ongoing 08/02/2018 None hypertension Onset of Symptom during adulthood 08/02/2018 None hypertension Blood Pressure Values patient checking blood pressure at home - did not bring in readings 08/02/2018 -Checks occasionally hypertension Severity mild 08/02/2018 None hypertension Alleviating Factors medication 08/02/2018 None hypertension Pertinent Findings Denies dyspnea 08/02/2018 None hypertension Pertinent Findings Denies edema 08/02/2018 None hypertension Quality chronic 04/08/2018 None hypertension Onset and Resolution ongoing 04/08/2018 None hypertension Onset of Symptom during adulthood 04/08/2018 None hypertension Blood Pressure Values patient checking blood pressure at home - did not bring in readings 04/08/2018 -Checks occasionally hypertension Severity mild 04/08/2018 None hypertension Alleviating Factors medication 04/08/2018 None hypertension Quality primary hypertension 04/08/2018 None hypertension Pertinent Findings Denies dyspnea 04/08/2018 None hypertension Pertinent Findings Denies edema 04/08/2018 None tinnitus Location in both ears 04/08/2018 None tinnitus Quality whooshing 04/08/2018 None tinnitus Onset and Resolution ongoing 04/08/2018 None earache Location both ears 01/31/2018 None earache Onset and Resolution ongoing 01/31/2018 None hypertension Quality chronic 01/31/2018 None hypertension Onset and Resolution ongoing 01/31/2018 None hypertension Onset of Symptom during adulthood 01/31/2018 None hypertension Blood Pressure Values patient checking blood pressure at home - did not bring in readings 01/31/2018 pt states that at home her readings are in the 120/70 range. hypertension Severity mild 01/31/2018 None hypertension Triggers stress 01/31/2018 None hypertension Alleviating Factors medication 01/31/2018 None hypertension Pertinent Findings Denies abdominal mass 01/31/2018 None hypertension Pertinent Findings Denies confusion 01/31/2018 None hypertension Pertinent Findings decreased energy 01/31/2018 None tinnitus Location diffusely 01/31/2018 None tinnitus Location in both ears 01/31/2018 None tinnitus Quality acute 01/31/2018 None tinnitus Quality high-pitched 01/31/2018 like ambulance or fire truck sirens tinnitus Quality improving 01/31/2018 None tinnitus Quality intermittent 01/31/2018 None tinnitus Onset and Resolution sudden in onset 01/31/2018 None tinnitus Triggers trauma 01/31/2018 None tinnitus Alleviating Factors rest 01/31/2018 None tinnitus Exacerbating Factors loud noises 01/31/2018 None tinnitus Pertinent Findings Denies fever 01/31/2018 None tinnitus Pertinent Findings Denies hearing change 01/31/2018 None tinnitus Pertinent Findings sensory changes 01/31/2018 None earache Quality acute 01/31/2018 None earache Onset of Symptom _ weeks ago 01/31/2018 None earache Severity mild 01/31/2018 None earache Frequency of Episodes decreasing 01/31/2018 ringing is gone but ears still popping some earache Significant Medical Conditions allergic rhinitis 01/31/2018 None hypertension Quality chronic 01/10/2018 None hypertension Onset and Resolution ongoing 01/10/2018 None hypertension Onset of Symptom during adulthood 01/10/2018 None hypertension Blood Pressure Values patient checking blood pressure at home - did not bring in readings 01/10/2018 pt states that at home her readings are in the 120/70 range. hypertension Severity mild 01/10/2018 None hypertension Triggers stress 01/10/2018 None hypertension Alleviating Factors medication 01/10/2018 None hypertension Pertinent Findings Denies abdominal mass 01/10/2018 None hypertension Pertinent Findings Denies confusion 01/10/2018 None hypertension Pertinent Findings decreased energy 01/10/2018 None tinnitus Location diffusely 01/10/2018 None tinnitus Location in both ears 01/10/2018 None tinnitus Quality acute 01/10/2018 None tinnitus Quality high-pitched 01/10/2018 like ambulance or fire truck sirens tinnitus Quality intermittent 01/10/2018 None tinnitus Quality improving 01/10/2018 None tinnitus Onset and Resolution sudden in onset 01/10/2018 None tinnitus Pertinent Findings Denies fever 01/10/2018 None tinnitus Pertinent Findings Denies hearing change 01/10/2018 None tinnitus Pertinent Findings sensory changes 01/10/2018 None tinnitus Alleviating Factors rest 01/10/2018 None tinnitus Exacerbating Factors loud noises 01/10/2018 None tinnitus Triggers trauma 01/10/2018 None hip pain Location on the left 12/21/2017 None hip pain Quality constant 12/21/2017 None nocturia Onset and Resolution ongoing 12/21/2017 None nocturia Pertinent Findings Denies fever 12/21/2017 None nocturia Pertinent Findings Denies chills 12/21/2017 None hip pain Location on the left 12/03/2017 None hip pain Quality constant 12/03/2017 None rash Location-Major on the back 10/11/2017 None rash Location-Trunk on the mid back 10/11/2017 None rash Location-Trunk on the right side of the back 10/11/2017 None rash Quality acute 09/2017 None rash Quality burning 10/11/2017 None rash Color erythematous 10/11/2017 None rash Onset and Resolution sudden in onset 10/11/2017 None rash Pertinent Findings Denies fever 10/11/2017 None Annual Medicare Wellness Exam Alcohol Use does not drink any alcohol 08/03/2017 None Annual Medicare Wellness Exam Aspirin Use yes 08/03/2017 None Annual Medicare Wellness Exam Smoking and Tobacco Use non smoker 08/03/2017 None Annual Medicare Wellness Exam Blood Glucose (self reported) don't know 08/03/2017 None Annual Medicare Wellness Exam Hemaglobin A-1C (self reported ) don't know 08/03/2017 None Annual Medicare Wellness Exam Blood Pressure (self reported ) diagnosed with hypertension 08/03/2017 None Annual Medicare Wellness Exam Blood Pressure (self reported ) borderline (120/80 - 139/89) 08/03/2017 None Annual Medicare Wellness Exam Cholesterol (self reported) desireable (below 200) 08/03/2017 None Annual Medicare Wellness Exam Describe Your Health very good 08/03/2017 None Annual Medicare Wellness Exam Exercise Habits exercises _ days per week 08/03/2017 None Annual Medicare Wellness Exam Hours of Sleep 6-7 08/03/2017 None Annual Medicare Wellness Exam Interaction with Friends yes 08/03/2017 None Annual Medicare Wellness Exam Interests & Pleasure most of the time 08/03/2017 None Annual Medicare Wellness Exam Social & Emotional Support always 08/03/2017 None Annual Medicare Wellness Exam Stress almost never 08/03/2017 None Annual Medicare Wellness Exam Handling Stress usually west effectively 08/03/2017 None Annual Medicare Wellness Exam Motor Vehicle Safety always fastens seat belt: yes 08/03/2017 None Annual Medicare Wellness Exam Motor Vehicle Safety drives after drinking: n/a 08/03/2017 None Annual Medicare Wellness Exam Motor Vehicle Safety rides with someone who has been drinking: no 08/03 None Annual Medicare Wellness Exam Life Satisfaction satisfied 08/03/2017 None Annual Medicare Wellness Exam Sun Exposure protects skin when outdoors: not always 08/03/2017 None Annual Medicare Wellness Exam Depression (last 6 months) almost never 08/03/2017 None Annual Medicare Wellness Exam Depression or Hopelessness almost never 08/03/2017 None Annual Medicare Wellness Exam Nutrition servings of fried food / high fat foods per day: 0-1 2016 None Annual Medicare Wellness Exam Nutrition servings of high fiber / whole grain per day: 2-3 08/03/2017 None Annual Medicare Wellness Exam Nutrition servings of vegetables / fruit per day: 0-2 08/03/2017 None blood pressure followup Quality chronic 08/02/2017 None blood pressure followup Onset and Resolution ongoing 08/02/2017 None blood pressure followup Onset of Symptom during adulthood 08/02/2017 None blood pressure followup Blood Pressure Values pt checking blood pressure at home, did not bring in to clinic 08/02/2017 None blood pressure followup Severity mild 08/02/2017 None blood pressure followup Frequency of Episodes unchanged 08/02/2017 None blood pressure followup Significant Medical Conditions cardiac disease 08/02/2017 None blood pressure followup Triggers no known associated factors 08/02/2017 None blood pressure followup Alleviating Factors medication 08/02/2017 None blood pressure followup Pertinent Findings Denies confusion 08/02/2017 None blood pressure followup Pertinent Findings Denies decreased energy 08/02/2017 None blood pressure followup Pertinent Findings Denies dizziness 08/02/2017 None blood pressure followup Pertinent Findings Denies dyspnea 08/02/2017 None blood pressure followup Pertinent Findings Denies edema 08/02/2017 None sinus congestion Location frontal sinuses 07/12/2017 None sinus congestion Quality constant 07/12/2017 None sinus congestion Quality fullness 07/12/2017 None sinus congestion Onset and Resolution sudden in onset 07/12/2017 None sinus congestion Onset of Symptom 1 weeks ago 07/12/2017 None sinus congestion Frequency of Episodes daily 07/12/2017 None sinus congestion Pertinent Findings cough 07/12/2017 None sinus congestion Pertinent Findings hoarseness 07/12/2017 None sinus congestion Pertinent Findings decreased energy level 07/12/2017 None cough Location in the lung 07/12/2017 None cough Quality constant 07/12/2017 None cough Quality hacking 07/12/2017 None cough Onset and Resolution sudden in onset 07/12/2017 None chest congestion Quality constant 07/12/2017 None chest congestion Onset and Resolution sudden in onset 07/12/2017 None chest congestion Onset of Symptom 1 weeks ago 07/12/2017 None hypertension Quality chronic 06/29/2017 None hypertension Onset and Resolution ongoing 06/29/2017 None hypertension Blood Pressure Values patient checking blood pressure at home - did not bring in readings 06/29/2017 pt states that at home her readings are in the 120/70 range. hypertension Severity mild 06/29/2017 None hypertension Triggers stress 06/29/2017 None hypertension Pertinent Findings Denies abdominal mass 06/29/2017 None hypertension Pertinent Findings Denies confusion 06/29/2017 None hypertension Pertinent Findings decreased energy 06/29/2017 None hypertension Onset of Symptom during adulthood 06/29/2017 None hypertension Alleviating Factors medication 06/29/2017 None hypertension Quality chronic 06/14/2017 None hypertension Onset and Resolution ongoing 06/14/2017 None hypertension Blood Pressure Values patient checking blood pressure at home - did not bring in readings 06/14/2017 pt states that at home her readings are in the 120/70 range. hypertension Severity mild 06/14/2017 None hypertension Triggers stress 06/14/2017 None hypertension Pertinent Findings Denies abdominal mass 06/14/2017 None hypertension Pertinent Findings Denies confusion 06/14/2017 None hypertension Pertinent Findings decreased energy 06/14/2017 None diarrhea Quality acute 06/14/2017 None diarrhea Onset and Resolution ongoing 06/14/2017 None diarrhea Onset of Symptom 2 weeks ago 06/14/2017 intermittently once per day diarrhea Limitation on Activities does not limit activities 06/14/2017 None diarrhea Frequency of Episodes 4-6 stools per day 06/14/2017 None diarrhea Triggers no known associated factors 06/14/2017 None diarrhea Alleviating Factors medication 06/14/2017 None diarrhea Pertinent Findings Denies cramping 06/14/2017 no warning. Reports that she has hemorrhoids very bad. One night she did it in bed and didnt even know it. She is wearing depends. Had gallbladder out November of 2013 and December 2013 had cyst removed from kidney had same problem which resolved diarrhea after both of these were taken care of and had no more diarrhea until 2 weeks ago. hypertension Quality chronic 04/05/2017 None hypertension Onset and Resolution ongoing 04/05/2017 None hypertension Blood Pressure Values patient checking blood pressure at home - did not bring in readings 04/05/2017 pt states that at home her readings are in the 120/70 range. hypertension Severity mild 04/05/2017 None hypertension Triggers stress 04/05/2017 None hypertension Pertinent Findings Denies abdominal mass 04/05/2017 None hypertension Pertinent Findings Denies confusion 04/05/2017 None hypertension Pertinent Findings decreased energy 04/05/2017 None diarrhea Quality acute 04/05/2017 None diarrhea Onset and Resolution ongoing 04/05/2017 None diarrhea Onset of Symptom 2 weeks ago 04/05/2017 intermittently once per day diarrhea Limitation on Activities does not limit activities 04/05/2017 None diarrhea Frequency of Episodes 4-6 stools per day 04/05/2017 None diarrhea Triggers no known associated factors 04/05/2017 None diarrhea Alleviating Factors medication 04/05/2017 None diarrhea Pertinent Findings Denies cramping 04/05/2017 no warning. Reports that she has hemorrhoids very bad. One night she did it in bed and didnt even know it. She is wearing depends. Had gallbladder out November of 2013 and December 2013 had cyst removed from kidney had same problem which resolved diarrhea after both of these were taken care of and had no more diarrhea until 2 weeks ago. diarrhea Quality loose 01/19/2017 None diarrhea Onset and Resolution gradual in onset 01/19/2017 None diarrhea Onset of Symptom 2 weeks ago 01/19/2017 None diarrhea Limitation on Activities does not limit activities 01/19/2017 None nausea Onset and Resolution gradual in onset 01/19/2017 None nausea Onset of Symptom 9 months ago 01/19/2017 since carotid endarterectomy on left side in March 2016 nausea Alleviating Factors no alleviatng factors 01/19/2017 - she had esophageal stretching - he wanted to do esophageal manometry - but she refused. nausea Pertinent Findings Denies bloating 01/19/2017 None nausea Pertinent Findings Denies dysphagia 01/19/2017 None nausea Pertinent Findings Denies dyspnea 01/19/2017 None nausea Pertinent Findings Denies early satiety 01/19/2017 None nausea Pertinent Findings heartburn 01/19/2017 None nausea Quality chronic 01/19/2017 None diarrhea Triggers no known associated factors 01/19/2017 None sinus congestion Onset and Resolution ongoing 10/05/2016 None sinus congestion Onset of Symptom 1-2 weeks ago 10/05/2016 None sinus congestion Frequency of Episodes daily 10/05/2016 None sinus congestion Pertinent Findings cough 10/05/2016 None sinus congestion Pertinent Findings decreased energy level 10/05/2016 None sinus congestion Pertinent Findings Denies fever 10/05/2016 None sinus congestion Severity moderate 10/05/2016 None sinus congestion Significant Medical Conditions allergic rhinitis 10/05/2016 None sinus congestion Triggers no known associated factors 10/05/2016 None sinus congestion Location on both sides 10/05/2016 None sinus congestion Quality acute 10/05/2016 None gastroesophageal reflux Quality intermittent 04/14/2016 None gastroesophageal reflux Onset and Resolution ongoing 04/14/2016 None gastroesophageal reflux Onset of Symptom 1 months ago 04/14/2016 None gastroesophageal reflux Frequency of Episodes daily 04/14/2016 None gastroesophageal reflux Triggers meals 04/14/2016 None gastroesophageal reflux Pertinent Findings Denies poor feeding 04/14/2016 None gastroesophageal reflux Pertinent Findings heartburn 04/14/2016 None gastroesophageal reflux Pertinent Findings Denies fever 04/14/2016 None hypertension Quality intermittent 01/13/2016 None hypertension Onset and Resolution ongoing 01/13/2016 None hypertension Blood Pressure Values not checking blood pressure at home 01/13/2016 None hypertension Pertinent Findings Denies dizziness 01/13/2016 None hypertension Pertinent Findings Denies dyspnea 01/13/2016 None hypertension Pertinent Findings Denies nausea 01/13/2016 None hypertension Onset of Symptom during adulthood 01/13/2016 None hypertension Severity not consistently severe symptoms, the symptoms fluctuate from no symptoms to anxiety and headaches 01/13/2016 None hypertension Frequency of Episodes unchanged 01/13/2016 None hypertension Triggers no known associated factors 01/13/2016 None hypertension Alleviating Factors medication 01/13/2016 None diarrhea Quality chronic 10/11/2015 None diarrhea Onset and Resolution resolved 10/11/2015 None diarrhea Limitation on Activities does not limit activities 10/11/2015 None diarrhea Frequency of Episodes decreasing 10/11/2015 None diarrhea Triggers no known associated factors 10/11/2015 None diarrhea Alleviating Factors activity 10/11/2015 None Hospital Follow Up _ musculoskeletal disorder 08/09/2015 back surgery Hospital Follow Up Quality improving 08/09/2015 None Hospital Follow Up Location back 08/09/2015 None Hospital Follow Up Onset and Resolution ongoing 08/09/2015 None Hospital Follow Up Severity moderate 08/09/2015 None Hospital Follow Up Significant Medical Conditions _ 08/09/2015 None Hospital Follow Up Alleviating Factors activity 08/09/2015 surgery-leg pain and numbness is gone Hospital Follow Up Pertinent Findings Denies fever 08/09/2015 None Hospital Follow Up Pertinent Findings Denies pain 08/09/2015 None Hospital Follow Up Pertinent Findings Denies other neurologic symptoms 08/09/2015 None diarrhea Onset of Symptom 2 weeks ago 05/24/2015 intermittently once per day diarrhea Pertinent Findings Denies cramping 05/24/2015 no warning. Reports that she has hemorrhoids very bad. One night she did it in bed and didnt even know it. She is wearing depends. Had gallbladder out November of 2013 and December 2013 had cyst removed from kidney had same problem which resolved diarrhea after both of these were taken care of and had no more diarrhea until 2 weeks ago. paresthesia Location on both legs 05/24/2015 None paresthesia Location on both feet 05/24/2015 walking distances makes her feet and legs numb and tingling- hx of spinal stenosis 3rd nd 4th lumbar area paresthesia Onset of Symptom 1+ years ago 05/24/2015 None paresthesia Triggers activity 05/24/2015 happens everytime she walks long distances gets unsteady feels as if she is going to fall- going to use walker paresthesia Pertinent Findings back pain 05/24/2015 dull pain paresthesia Pertinent Findings dizziness 05/24/2015 occasional diarrhea Quality acute 05/24/2015 None diarrhea Onset and Resolution ongoing 05/24/2015 None diarrhea Limitation on Activities does not limit activities 05/24/2015 None diarrhea Frequency of Episodes 4-6 stools per day 05/24/2015 None diarrhea Triggers no known associated factors 05/24/2015 None diarrhea Alleviating Factors medication 05/24/2015 None hypertension Quality chronic 04/24/2015 None hypertension Onset and Resolution ongoing 04/24/2015 None hypertension Severity mild 04/24/2015 None hypertension Triggers stress 04/24/2015 None hypertension Pertinent Findings Denies abdominal mass 04/24/2015 None hypertension Pertinent Findings Denies confusion 04/24/2015 None hypertension Pertinent Findings decreased energy 04/24/2015 None hypertension Blood Pressure Values patient checking blood pressure at home - did not bring in readings 04/24/2015 pt states that at home her readings are in the 120/70 range. sore throat Location on both sides 02/14/2015 throat feels better, not sore but feels like there is stuff in her throat sinus congestion Onset of Symptom 2 weeks ago 02/14/2015 Used Afrin nasal spray at night before bed last night which seemed to help because she could breath through her nose sinus congestion Pertinent Findings facial pain 02/14/2015 None sinus congestion Pertinent Findings cough 02/14/2015 None sinus congestion Pertinent Findings fever 02/14/2015 None sinus congestion Quality fullness 02/14/2015 None sinus congestion Quality pressure 02/14/2015 None cough Onset of Symptom 1 weeks ago 02/14/2015 None cough Pertinent Findings Denies chest discomfort 02/14/2015 None cough Pertinent Findings Denies dyspnea 02/14/2015 None cough Pertinent Findings facial pain 02/14/2015 None cough Pertinent Findings fever 02/14/2015 None cough Pertinent Findings nasal congestion 02/14/2015 uses saline nasal spray once per week cough Pertinent Findings sputum production 02/14/2015 this morning got thick stuff up, yellow earache Location both ears 02/14/2015 fullness earache Onset of Symptom 2 weeks ago 02/14/2015 None headache Onset of Symptom _ hours ago 02/14/2015 today headache Location in the frontal area 02/14/2015 None headache Pertinent Findings facial pain 02/14/2015 None headache Frequency of Episodes increasing 02/14/2015 None sinus congestion Frequency of Episodes increasing 02/14/2015 None sinus congestion Length of Episodes 2 weeks 02/14/2015 None hypertension Quality chronic 10/22/2014 None hypertension Onset and Resolution ongoing 10/22/2014 None hypertension Onset of Symptom during adulthood 10/22/2014 None hypertension Blood Pressure Values not checking blood pressure at home 10/22/2014 None hypertension Triggers no known associated factors 10/22/2014 None hypertension Alleviating Factors medication 10/22/2014 None hypertension Pertinent Findings Denies dizziness 10/22/2014 None hypertension Pertinent Findings Denies dyspnea 10/22/2014 None hypertension Pertinent Findings Denies edema 10/22/2014 None hypertension Pertinent Findings Denies palpitations 10/22/2014 None anxiety Quality intermittent 10/22/2014 None anxiety Onset and Resolution ongoing 10/22/2014 None anxiety Triggers stress 10/22/2014 reports escitalopram 10mg cut in half, needs refill. hip pain Location on the right 10/22/2014 took PT last visit tomorrow, reports pain is much better. hip pain Quality sharp pain 10/22/2014 None hip pain Quality intermittent 10/22/2014 None hip pain Onset of Symptom 1 years ago 10/22/2014 None hip pain Severity moderate 10/22/2014 None hip pain Significant Medical Conditions advancing age 1210/22/2014 None hip pain Exacerbating Factors activity 10/22/2014 - specifically going up the stairs - hip pain Pertinent Findings pain at rest 10/22/2014 None hip pain Pertinent Findings pain with movement 10/22/2014 None hip pain Pertinent Findings sensation of buckling 10/22/2014 None leg pain/sciatica Onset and Resolution ongoing 10/22/2014 None leg pain/sciatica Quality intermittent 10/22/2014 aching pain, reports spinal stenosis. Heating blanket helps. Pain wakens her at night leg pain/sciatica Pertinent Findings Denies fever 10/22/2014 None hypertension Severity not consistently severe symptoms, the symptoms fluctuate from no symptoms to anxiety and headaches 10/22/2014 None hypertension Frequency of Episodes unchanged 10/22/2014 None anxiety Quality chronic 10/22/2014 None anxiety Onset of Symptom during adulthood 10/22/2014 None anxiety Limitation on Activities does not limit activities 10/22/2014 None anxiety Frequency of Episodes decreasing 10/22/2014 None anxiety Alleviating Factors medication 10/22/2014 None anxiety Exacerbating Factors activity 10/22/2014 None anxiety Pertinent Findings Denies nausea 10/22/2014 None anxiety Pertinent Findings Denies insomnia 10/22/2014 None anxiety Pertinent Findings Denies dyspnea 10/22/2014 None anxiety Pertinent Findings Denies syncope 10/22/2014 None anxiety Pertinent Findings Denies vomiting 10/22/2014 None hypertension Quality chronic 08/22/2014 None hypertension Onset and Resolution ongoing 08/22/2014 None hypertension Onset of Symptom during adulthood 08/22/2014 None hypertension Blood Pressure Values not checking blood pressure at home 08/22/2014 None hypertension Triggers no known associated factors 08/22/2014 None hypertension Alleviating Factors medication 08/22/2014 None hypertension Pertinent Findings Denies dizziness 08/22/2014 None hypertension Pertinent Findings Denies dyspnea 08/22/2014 None hypertension Pertinent Findings Denies edema 08/22/2014 None hypertension Pertinent Findings Denies palpitations 08/22/2014 None anxiety Quality intermittent 08/22/2014 None hip pain Location on the right 08/22/2014 - the pain feels like it is in the joint - she reports that if she uses her right leg to step up, she feels a catching in her hip that makes her feel like her leg will give way at the hip - hip pain Quality sharp pain 08/22/2014 None hip pain Quality intermittent 08/22/2014 None hip pain Onset of Symptom 1 years ago 08/22/2014 None hip pain Pertinent Findings pain at rest 08/22/2014 None hip pain Pertinent Findings pain with movement 08/22/2014 None hip pain Pertinent Findings sensation of buckling 08/22/2014 None hip pain Severity moderate 08/22/2014 None hip pain Significant Medical Conditions advancing age 1008/22/2014 None hip pain Sports Participation bowling 08/22/2014 None hip pain Exacerbating Factors activity 08/22/2014 - specifically going up the stairs - anxiety Onset and Resolution ongoing 08/22/2014 None anxiety Triggers stress 08/22/2014 None hypertension Blood Pressure Values not checking blood pressure at home 02/21/2014 None hypertension Pertinent Findings Denies dizziness 02/21/2014 None hypertension Pertinent Findings Denies dyspnea 02/21/2014 None hypertension Pertinent Findings Denies edema 02/21/2014 None hypertension Pertinent Findings Denies palpitations 02/21/2014 None hypertension Quality chronic 02/21/2014 None hypertension Onset and Resolution ongoing 02/21/2014 None hypertension Onset of Symptom during adulthood 02/21/2014 None hypertension Triggers no known associated factors 02/21/2014 None hypertension Alleviating Factors medication 02/21/2014 None diarrhea Onset of Symptom 6 weeks ago 12/19/2013 None diarrhea Pertinent Findings Denies chills 12/19/2013 None diarrhea Pertinent Findings Denies cramping 12/19/2013 None diarrhea Pertinent Findings Denies fever 12/19/2013 None nausea Onset of Symptom 6 weeks ago 12/19/2013 None nausea Severity moderate 12/19/2013 None nausea Severity severe 12/19/2013 None nausea Frequency of Episodes increasing 12/19/2013 N/V off and on for the past 6 weeks. Gallbladder was taken out November 06 nausea Triggers no known associated factors 12/19/2013 None nausea Pertinent Findings Denies bloating 12/19/2013 None nausea Pertinent Findings Denies chills 12/19/2013 None nausea Pertinent Findings Denies fever 12/19/2013 None nausea Pertinent Findings emesis 12/19/2013 None nausea Pertinent Findings Denies cough 12/19/2013 None nausea Pertinent Findings Denies heartburn 12/19/2013 None nausea Pertinent Findings Denies intestinal obstruction 12/19/2013 None nausea Onset and Resolution ongoing 12/19/2013 None diarrhea Onset and Resolution ongoing 12/19/2013 None diarrhea Limitation on Activities moderately limits activities 12/19/2013 None diarrhea Frequency of Episodes >8 stools per day 12/19/2013 None diarrhea Triggers no known associated factors 12/19/2013 None diarrhea Alleviating Factors antidiarrheal agent 12/19/2013 lomotil diarrhea Onset of Symptom 1 days ago 12/04/2013 None diarrhea Pertinent Findings abdominal distension 12/04/2013 None diarrhea Pertinent Findings Denies chills 12/04/2013 None diarrhea Pertinent Findings Denies fever 12/04/2013 None diarrhea Pertinent Findings emesis 12/04/2013 None diarrhea Pertinent Findings Denies heartburn 12/04/2013 None diarrhea Pertinent Findings Denies flatulence 12/04/2013 None diarrhea Pertinent Findings Denies cramping 12/04/2013 None diarrhea Pertinent Findings lethargy 12/04/2013 None diarrhea Pertinent Findings Denies nausea 12/04/2013 None diarrhea Quality acute 12/04/2013 None diarrhea Onset and Resolution ongoing 12/04/2013 None vomiting Quality acute 12/04/2013 None vomiting Onset and Resolution ongoing 12/04/2013 None vomiting Onset of Symptom 3 days ago 12/04/2013 None vomiting Severity moderate 12/04/2013 None vomiting Frequency of Episodes increasing 12/04/2013 None diarrhea Limitation on Activities does not limit activities 12/04/2013 None diarrhea Frequency of Episodes decreasing 12/04/2013 no diarrhea since this morning diarrhea Triggers no known associated factors 12/04/2013 None vomiting Pertinent Findings Denies abdominal distension 12/04/2013 None vomiting Pertinent Findings Denies back pain 12/04/2013 None vomiting Pertinent Findings Denies bloating 12/04/2013 None vomiting Pertinent Findings Denies has bloody stools 12/04/2013 None vomiting Pertinent Findings Denies cough 12/04/2013 None vomiting Pertinent Findings Denies edema 12/04/2013 None vomiting Pertinent Findings Denies hematemesis 12/04/2013 None vomiting Pertinent Findings Denies ileus 12/04/2013 None vomiting Pertinent Findings Denies unable to tolerate any liquids 12/04/2013 None vomiting Alleviating Factors rest 12/04/2013 None Hospital Follow Up _ Other: cholecystectomy 11/23/2013 None Hospital Follow Up Quality improving 11/23/2013 None Hospital Follow Up Severity mild 11/23/2013 None Hospital Follow Up Pertinent Findings Denies Other: _ 11/23/2013 None vomiting Quality acute 10/31/2013 None vomiting Quality food particles 10/31/2013 None vomiting Quality worsening 10/31/2013 None vomiting Onset of Symptom 3 days ago 10/31/2013 None vomiting Frequency of Episodes increasing 10/31/2013 None abdominal pain Location in the epigastric area 10/31/2013 None abdominal pain Quality acute 10/31/2013 None abdominal pain Quality worsening 10/31/2013 None abdominal pain Pertinent Findings emesis 10/31/2013 None abdominal pain Exacerbating Factors eating 10/31/2013 None abdominal pain Pertinent Findings nausea 10/31/2013 None abdominal pain Pertinent Findings vomiting 10/31/2013 None diarrhea Quality acute 10/31/2013 None diarrhea Onset and Resolution ongoing 10/31/2013 None diarrhea Onset of Symptom 3 weeks ago 10/31/2013 None diarrhea Limitation on Activities moderately limits activities 10/31/2013 None diarrhea Frequency of Episodes 4-6 stools per day 10/31/2013 None diarrhea Triggers meals 10/31/2013 None vomiting Onset and Resolution ongoing 10/31/2013 None vomiting Triggers meals 10/31/2013 None abdominal pain Location in the periumbilical area 10/31/2013 None abdominal pain Onset of Symptom 1 days ago 10/31/2013 None abdominal pain Limitation on Activities moderately limits activities 10/31/2013 None abdominal pain Frequency of Episodes increasing 10/31/2013 None abdominal pain Significant Medications antibiotics 10/31/2013 on flagyl but didn' t take it this morning diarrhea Quality acute 10/18/2013 None diarrhea Onset and Resolution sudden in onset 10/18/2013 None diarrhea Onset and Resolution ongoing 10/18/2013 None diarrhea Onset of Symptom 1 weeks ago 10/18/2013 None diarrhea Quality watery 10/18/2013 None diarrhea Pertinent Findings Denies fever 10/18/2013 None diarrhea Pertinent Findings Denies emesis 10/18/2013 None diarrhea Alleviating Factors antidiarrheal agent 10/18/2013 immodium is the only thing that is working. diarrhea Pertinent Findings cramping 10/18/2013 None diarrhea Ill Contacts sick individuals 10/18/2013 None diarrhea Limitation on Activities moderately limits activities 10/18/2013 None diarrhea Frequency of Episodes daily 10/18/2013 explosive diarrhea last night - this morning - watery hypertension Quality chronic 08/30/2013 None hypertension Quality stable 08/30/2013 None hypertension Onset and Resolution ongoing 08/30/2013 None hypertension Blood Pressure Values pt checking blood pressure - see scanned document 08/30/2013 None hypertension Pertinent Findings Denies dizziness 08/30/2013 None hypertension Pertinent Findings Denies dyspnea 08/30/2013 None hypertension Pertinent Findings Denies edema 08/30/2013 None hypertension Pertinent Findings Denies orthostatic hypotension 08/30/2013 None hypertension Pertinent Findings Denies palpitations 08/30/2013 None hypertension Pertinent Findings Denies tachycardia 08/30/2013 None hypertension Triggers no known associated factors 08/30/2013 None hypertension Alleviating Factors medication 08/30/2013 None hypertension Exacerbating Factors stress 08/30/2013 None hypertension Exacerbating Factors change in dietary habits 08/30/2013 None hypertension Onset and Resolution ongoing 06/21/2013 None hypertension Quality intermittent 06/21/2013 None hypertension Blood Pressure Values pt checking blood pressure - see scanned document 06/21/2013 None hypertension Pertinent Findings Denies dizziness 06/21/2013 None hypertension Pertinent Findings Denies dyspnea 06/21/2013 None hypertension Pertinent Findings Denies edema 06/21/2013 None hypertension Pertinent Findings Denies orthostatic hypotension 06/21/2013 None hypertension Pertinent Findings Denies palpitations 06/21/2013 None hypertension Pertinent Findings Denies tachycardia 06/21/2013 None hypertension Severity mild 06/21/2013 None hypertension Triggers no known associated factors 06/21/2013 None hypertension Alleviating Factors medication 06/21/2013 None hypertension Quality chronic 05/31/2013 None hypertension Onset and Resolution ongoing 05/31/2013 None hypertension Blood Pressure Values not checking blood pressure at home 05/31/2013 None hypertension Severity mild 05/31/2013 None hypertension Triggers stress 05/31/2013 None hypertension Pertinent Findings Denies abdominal mass 05/31/2013 None hypertension Pertinent Findings Denies confusion 05/31/2013 None hypertension Pertinent Findings decreased energy 05/31/2013 None Advance Directives Advance Directives Present Encounters Encounter Performer Location Codes Date ([id number]) [id number] EST. PATIENT, LEVEL IV Diagnosis: Essential (primary) hypertension[ICD10: I10] Diagnosis: Other allergic rhinitis[ICD10: J30.89] Diagnosis: Cough[ICD10: R05] Diagnosis: Low back pain[ICD10: M54.5] Donya Carolina MD, [facility] CPT-4: 95818 12/05/[id number]) [id number] EST. PATIENT, LEVEL IV Diagnosis: Essential (primary) hypertension[ICD10: I10] Diagnosis: Dysphagia, oropharyngeal phase[ICD10: R13.12] Diagnosis: 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[ICD10: D22.39] Donya Carolina MD, [facility] CPT-4: 64279 08/02/2018 [id number] [id number] EST. PATIENT, LEVEL III Diagnosis: Essential (primary) hypertension[ICD10: I10] Diagnosis: Other allergic rhinitis[ICD10: J30.89] Donya Carolina MD, [facility] CPT-4: 45285 04/08/2018 [id number] EST. PATIENT, LEVEL III Diagnosis: Essential (primary) hypertension[ICD10: I10] Diagnosis: Other allergic rhinitis[ICD10: J30.89] Donya Carolina MD, [facility] CPT-4: 34072 01/31/2018 ([id number]) 80362 EST. PATIENT, LEVEL III Diagnosis: Essential (primary) hypertension[ICD10: I10] Diagnosis: Other allergic rhinitis[ICD10: J30.89] Donya Carolina MD, [facility] CPT-4: 31249 01/10/2018 66953 EST. PATIENT, LEVEL IV Diagnosis: Overactive bladder[ICD10: N32.81] Piper Carolina MD, [facility] CPT -4: 78488 12/21/2017 [id number] EST. PATIENT, LEVEL III Diagnosis: Other muscle spasm[ICD10: M62.838] Diagnosis: Pain in left hip[ICD10: M25.552] Diagnosis: Dysuria[ICD10: R30.0] Diagnosis: Weakness[ICD10: R53.1] Diagnosis: Unsteadiness on feet[ICD10: R26.81] Piper Carolina MD, [facility] CPT-4: 85795 12/03/2017 34829 EST. PATIENT, LEVEL III Diagnosis: Zoster without complications[ICD10: B02.9] Piper Carolina MD, [facility] CPT-4: 50648 10/11/2017 ([id number]) 25537 EST. PATIENT, LEVEL IV Diagnosis: Essential (primary) hypertension[ICD10: I10] Diagnosis: Nonrheumatic aortic (valve) stenosis[ICD10: I35.0] Diagnosis: Other allergic rhinitis[ICD10: J30.89] Donya Carolina MD, [facility] CPT-4: 91849 08/02/2017 24438 EST. PATIENT, LEVEL IV Diagnosis: Other acute sinusitis[ICD10: J01.80] Diagnosis: Other allergic rhinitis[ICD10: J30.89] Diagnosis: Wheezing[ICD10: R06.2] Piper Carolina MD, [facility] CPT-4: 18940 07/12/2017 ([id number]) 88488 EST. PATIENT, LEVEL IV Diagnosis: Nonrheumatic aortic (valve) stenosis[ICD10: I35.0] Diagnosis: Essential (primary) hypertension[ICD10: I10] Donya Carolina MD, [facility] CPT-4: 65756 06/29/2017 ([id number]) 29244 EST. PATIENT, LEVEL IV Diagnosis: Essential (primary) hypertension[ICD10: I10] Diagnosis: Functional diarrhea[ICD10: K59.1] Diagnosis: Nausea[ICD10: R11.0] Donya Carolina MD, [facility] CPT-4: 44719 06/14/2017 ([id number]) 50387 EST. 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 PATIENT, LEVEL III Diagnosis: Functional diarrhea[ICD10: K59.1] Diagnosis: Nausea[ICD10: R11.0] Salima Carolina MD, [facility] CPT-4: 68965 01/19/2017 ([id number]) 07437 EST. PATIENT, LEVEL III Diagnosis: Allergic rhinitis due to pollen[ICD10: J30.1] Diagnosis: Cough[ICD10: R05] Donya Carolina MD, [facility] CPT-4: 44692 10/05/2016 ([id number]) 99906 EST. PATIENT, LEVEL IV Diagnosis: Essential (primary) hypertension[ICD10: I10] Diagnosis: Gastro-esophageal reflux disease without esophagitis[ICD10: K21.9] Diagnosis: Allergic rhinitis due to pollen[ICD10: J30.1] Diagnosis: Parkinson's disease[ICD10: G20] Donya Carolina MD, [facility] CPT-4: 79061 04/14/2016 ([id number]) 97687 EST. PATIENT, LEVEL IV Diagnosis: Essential (primary) hypertension[ICD10: I10] Diagnosis: Nonrheumatic aortic (valve) stenosis[ICD10: I35.0] Diagnosis: Allergic rhinitis, unspecified[ICD10: J30.9] Donya Carolina MD, [facility] CPT-4: 75469 01/13/2016 ([id number]) 70496 EST. 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 PATIENT, LEVEL IV Diagnosis: Essential (primary) hypertension[ICD10: I10] Diagnosis: Other specified noninfective gastroenteritis and colitis[ICD10: K52.89] Diagnosis: Unspecified hemorrhoids[ICD10: K64.9] Donya Carolina MD, [facility] CPT-4: 32634 08/09/2015 ([id number]) 38162 EST. PATIENT, LEVEL IV Diagnosis: Lumbar back pain[ICD9: 724.2] Diagnosis: Fecal incontinence[ICD9: 787.60] Diagnosis: Numbness of legs[ICD9: 782.0] Diagnosis: Diarrhea[ICD9: 787.91] Salima Carolina MD, [facility] CPT-4: 96739 05/24/2015 ([id number]) 74029 EST. PATIENT, LEVEL IV Diagnosis: ESSENTIAL HYPERTENSION[ICD9: 401.9] Diagnosis: DEPRESSIVE DISORDER NEC[ICD9: 311] Salima Carolina MD, [facility] CPT-4: 73153 04/24/2015 ([id number]) 54696 EST. PATIENT, LEVEL III Diagnosis: ACUTE SINUSITIS[ICD9: 461.9] Diagnosis: COUGH[ICD9: 786.2] Donya Carolina MD, [facility] CPT-4: 68796 02/14/2015 ([id number]) 59505 EST. PATIENT, LEVEL IV Diagnosis: ESSENTIAL HYPERTENSION[ICD9: 401.9] Diagnosis: Depression[ICD9: 311] Diagnosis: Hip pain[ICD9: 719.45] Salima Carolina MD, [facility] CPT-4: 01750 10/22/2014 ([id number]) 84472 EST. PATIENT, LEVEL IV Diagnosis: ESSENTIAL HYPERTENSION[ICD9: 401.9] Diagnosis: Hip pain[ICD9: 719.45] Diagnosis: Depression[ICD9: 311] Salima Carolina MD, [facility] CPT-4: 28376 08/22/2014 ([id number]) 68806 EST. PATIENT, LEVEL IV Diagnosis: ESSENTIAL HYPERTENSION[SNOMED: 03459338] Diagnosis: Renal cyst[ICD9: 753.10] Diagnosis: Constipation - functional[ICD9: 564.09] Salima Carolina MD [facility] CPT-4: 45170 02/21/2014 ([id number]) 59731 EST. PATIENT, LEVEL III Diagnosis: Nausea and vomiting[ICD9: 787.01] Diagnosis: Diarrhea[ICD9: 787.91] Diagnosis: Renal cyst[ICD9: 753.10] Diagnosis: UTI[ICD9: 599.0] Salima Carolina MD [facility] CPT-4: 10303 12/19/2013 ([id number]) 92807 EST. PATIENT, LEVEL III Diagnosis: Diarrhea[ICD9: 787.91] Diagnosis: Nausea and vomiting[ICD9: 787.01] Diagnosis: UTI[ICD9: 599.0] Donya Carolina MD [facility] CPT-4: 50864 12/04/2013 ([id number]) 99612 EST. PATIENT, LEVEL III Diagnosis: ESSENTIAL HYPERTENSION[SNOMED: 72039963] Diagnosis: Abdominal pain[ICD9: 789.00] Salima Carolina MD [facility] CPT- 4: 23966 11/23/2013 ([id number]) Patient admitted to the hospital from clinic (NO CHARGE) Diagnosis: Diarrhea[ICD9: 787.91] Diagnosis: Abdominal discomfort[ICD9: 789.00] Diagnosis: Nausea and vomiting[ICD9: 787.01] Salima Carolina MD [facility] CPT-4: 30464J 10/31/2013 ([id number]) 78065 EST. PATIENT, LEVEL III Diagnosis: Diarrhea[ICD9: 787.91] Salima Carolina MD [facility] CPT-4: 67023 10/18/2013 ([id number]) 47691 EST. PATIENT, LEVEL III Diagnosis: ESSENTIAL HYPERTENSION[SNOMED: 11937001] Salima Carolina MD [facility] CPT-4: 39318 08/30/2013 ([id number]) 61909 EST. PATIENT, LEVEL III Diagnosis: ESSENTIAL HYPERTENSION[SNOMED: 52378884] [facility] CPT-4: 47602 06/21/2013 ([id number]) 97234 EST. PATIENT, LEVEL III Diagnosis: ESSENTIAL HYPERTENSION[SNOMED: 40705407] [facility] CPT-4: 42912 05/31/2013 Plan of Care Planned Activity Notes Codes Status Date Visit Plan: Hypertension - well controlled - continue with current medications, continue with no added salt diet. Pt has been encouraged to exercise daily. The pt has been advised to call the office if there are any acute concerns about change in blood pressure readings at home. Allergies -cough - kenalog injection today in the office - recommended pt to use allergy medication as prescribed. Pt has been counseled as to the appropriate use of the medication. Pt to call if allergy symptoms are not controlled with the medication. If using nasal spray, instructions as follows: Nasal spray- use twice daily, one spray per nostril twice daily, after 30 minutes, rinse out nose with saline spray.. Use opposite hand per nostril to spray in the nasal steroid allergy spray. Low back pain -patient wants to do PT but wants to until another month or so when the weather is improved -she will call us when she wants to schedule 12/05/2018 Patient Education: Patient Medication Summary Completed 12/05/2018 Patient Education: Hypertension Completed 12/05/2018 Patient Education: Back Pain Completed 12/05/2018 Care Plan: Cbc With Differential Pending 12/05/2018 Care Plan: Comp Metabolic Pending 12/05/2018 Care Plan: Tsh Pending 12/05/2018 Care Plan: Lipid Pending 12/05/2018 Appointment: Donya Lombardi WPtel: [address] [place], [place] [id number] (15 min) Moderate 08/19/2018 Visit Plan: Hypertension - well controlled - continue with current medications, continue with no added salt diet. Pt has been encouraged to exercise daily. The pt has been advised to call the office if there are any acute concerns about change in blood pressure readings at home. Dysphagia - schedule swallow study Refer to Dr Powers for removal of mole left cheek 08/02/2018 Visit Plan: Hypertension - well controlled - continue with current medications, continue with no added salt diet. Pt has been encouraged to exercise daily. The pt has been advised to call the office if there are any acute concerns about change in blood pressure readings at home. Dysphagia - schedule swallow study Refer to Dr Powers for removal of mole left cheek -does not want to see him until 08/02/2018 Appointment: Donya Lombardi WPtel: [phone] [phone] (15 min) Moderate 08/02/2018 Patient Education: Patient Medication Summary Completed 08/02/2018 Patient Education: Hypertension Completed 08/02/2018 Care Plan: Referral Order SNOMED-CT : [id number] Pending 08/02/2018 Visit Plan: Hypertension - well controlled - continue with current medications, continue with no added salt diet. Pt has been encouraged to exercise daily. The pt has been advised to call the office if there are any acute concerns about change in blood pressure readings at home. Allergies-stop claritin, try xyzal 04/08/2018 Appointment: Donya Lombardi WPtel: [phone] [phone] (15 min) Moderate 04/08/2018 Patient Education: Patient Medication Summary Completed 04/08/2018 Visit Plan: Hypertension - well controlled - continue with current medications, continue with no added salt diet. Pt has been encouraged to exercise daily. The pt has been advised to call the office if there are any acute concerns about change in blood pressure readings at home. Allergies - chronic - recommended pt to use allergy medication as prescribed. Pt has been counseled as to the appropriate use of the medication. Pt to call if allergy symptoms are not controlled with the medication. If using nasal spray, instructions as follows: Nasal spray- use twice daily, one spray per nostril twice daily, after 30 minutes, rinse out nose with saline spray.. Use opposite hand per nostril to spray in the nasal steroid allergy spray. 01/31/2018 Appointment: Donya Lombardi WPtel: [phone] [phone] (30 min) Complex 01/31/2018 Patient Education: Patient Medication Summary Completed 01/31/2018 Appointment: Salima Carolina WPtel: [facility] (15 min) Moderate 01/19/2018 Visit Plan: Hypertension - well controlled - continue with current medications, continue with no added salt diet. Pt has been encouraged to exercise daily. The pt has been advised to call the office if there are any acute concerns about change in blood pressure readings at home. Allergies - chronic - recommended pt to use allergy medication as prescribed. Pt has been counseled as to the appropriate use of the medication. Pt to call if allergy symptoms are not controlled with the medication. If using nasal spray, instructions as follows: Nasal spray- use twice daily, one spray per nostril twice daily, after 30 minutes, rinse out nose with saline spray.. Use opposite hand per nostril to spray in the nasal steroid allergy spray. 01/10/2018 Appointment: Donya Lombardi WPtel: [phone] [facility] [place] [address] (15 min) Moderate 01/10/2018 Patient Education: Patient Medication Summary Completed 01/10/2018 Visit Plan: Urinary frequency, over active bladder - UA negative - will give RX - pt is to notify clinic if symptoms do not improve, if they worsen, or with any changes, questions, or concerns. 12/21/2017 Visit Plan: Urinary frequency, over active bladder - UA negative - will give RX - pt is to notify clinic if symptoms do not improve, if they worsen, or with any changes, questions, or concerns. 12/21/2017 Appointment: Piper Salazar WPtel: [id number] (30 min) Complex 12/21/2017 Patient Education: Patient Medication Summary Completed 12/21/2017 Visit Plan: Left hip pain, muscle spasms - pt is OK to start very low dose muscle relaxer for a short term as needed basis - discussed the risk/benefits and precautions - pt is to notify clinic if symptoms do not imrpove, if they worsen, or with any changes, questions, or cocnerns. Dysuria, incontinence, frequency - will check UA and treat as indicated. weakness, gait instability - pt is to use a front wheeled walker for ambulation due to weakness and gait instability to allow for pt to safely ambulate and perform activities of daily living in her home. 12/03/2017 Visit Plan: Left hip pain, muscle spasms - pt is OK to start very low dose muscle relaxer for a short term as needed basis - discussed the risk/benefits and precautions - pt is to notify clinic if symptoms do not imrpove, if they worsen, or with any changes, questions, or cocnerns. Dysuria, incontinence, frequency - will check UA and treat as indicated. 12/03/2017 Appointment: Piper Salazar WPtel: [phone] (30 min) Complex 12/03/2017 Patient Education: Patient Medication Summary Completed 12/03/2017 Visit Plan: Shingles - Herpes Zoster - acute in onset - pt started on acyclovir and instructed to call if symptoms worsen or if the pt is concerned about the symptoms. Pt has been advised to avoid contact with persons who may be , or infants, or immunocompromised individuals. Pt has been instructed that shingles will continue to break out and eventually scab over a two week period, until all of the vesicles are scabbed, the pt is to be considered contagious. 10/11/2017 Appointment: Piper Salazar WPtel: [phone] (30 min) Complex 10/11/2017 Patient Education: Patient Medication Summary Completed 10/11/2017 Visit Plan: Medicare Exam - today we discussed the patients past history, immunizations, preventative exams/evaluations - colonoscopy, fecal occult blood testing, routine labs for renal function, glucose, cholesterol, osteoporosis evaluations, cardiovascular testing and cancer screenings. We have also discussed mental health and the signs/symptoms of depression. The patient was advised of home safety evaluations and the need to make sure that as the aging process continues, we need to be aware of different ways to make the home a safer place to reside. The patient has also been counseled that exercise is necessary - and of utmost importance as we age to help decrease fall risk and to maintain independence in the home. Today we discussed the need for the patient to create paperwork for Advanced directives as well as for the patient to provide this office with a copy of her DOPA paperwork for health care surrogate. 08/03/2017 Appointment: Donya Lombardi WPtel: [phone] [place] [phone] [facility] - Annual Wellness Visit 08/03/2017 Patient Education: Patient Medication Summary Completed 08/03/2017 Visit Plan: Hypertension - well controlled - continue with current medications, continue with no added salt diet. Pt has been encouraged to exercise daily. The pt has been advised to call the office if there are any acute concerns about change in blood pressure readings at home. Allergies - chronic - recommended pt to use allergy medication as prescribed. Pt has been counseled as to the appropriate use of the medication. Pt to call if allergy symptoms are not controlled with the medication. If using nasal spray, instructions as follows: Nasal spray- use twice daily, one spray per nostril twice daily, after 30 minutes, rinse out nose with saline spray.. Use opposite hand per nostril to spray in the nasal steroid allergy spray. Aortic stenosis- appt with Dr Alvarado on this week 08/02/2017 Appointment: Donya Lombardi WPtel: [phone] [phone] (30 min) Complex 08/02/2017 Patient Education: Patient Medication Summary Completed 08/02/2017 Visit Plan: Bronchitis - acute case of bronchitis identified. Pt has been given steroids as appropriate, and pt has been instructed to call if symptoms are not improved, or if symptoms acutely worsen. Sinusitis - Pt has acute infection - pain in face, maxillary region, Pt informed to use decongestant, RX given to patient, sinus rinses also recommended. Call if symptoms do not show improvement. Allergies - chronic - recommended pt to use allergy medication as prescribed. Pt has been counseled as to the appropriate use of the medication. Pt to call if allergy symptoms are not controlled with the medication. If using nasal spray, instructions as follows: Nasal spray- use twice daily, one spray per nostril twice daily, after 30 minutes, rinse out nose with saline spray.. Use opposite hand per nostril to spray in the nasal steroid allergy spray. 07/12/2017 Appointment: Piper Salazar WPtel: [address] (15 min) Moderate 07/12/2017 Patient Education: Patient Medication Summary Completed 07/12/2017 Visit Plan: HTN-fairly well controlled-patient wants to stop all medcations-we have stopped losartan and blood pressures stable-will decrease amlodipine to 5mg daily but instructed patient on the risks of not adequately treating her blood pressure especially due to her significant aortic stenosis. Instructed her to call if blood pressures 140/90 or higher. Patient verbalized understanding. Aortic stenosis-refer to Dr Alvarado for management 06/29/2017 Appointment: Donya Lombardi WPtel: [phone] [phone] (30 min) Complex 06/29/2017 Patient Education: Patient Medication Summary Completed 06/29/2017 Patient Education: Hypertension Completed 06/29/2017 Care Plan: Referral Order SNOMED-CT : [id number] Pending 06/29/2017 Visit Plan: Hypertension - well controlled - continue with current medications, continue with no added salt diet. Pt has been encouraged to exercise daily. The pt has been advised to call the office if there are any acute concerns about change in blood pressure readings at home. I have recommended patient continue with current medications but she insists upon stopping them. Discussed the risks of uncontrolled blood pressure including stroke and with patient. States she will agree to stopping one medication at a time to see if her diarrhea improves. Will hold losartan x 2 weeks and follow up in the office in 2 weeks. I have instructed her to monitor her blood pressure and heart rate and to call if 150/90 or higher. Patient verbalized understanding of plan. Heart murmur -needs echo-will scheduled Diarrhea-chronic- patient to increase probiotics and monitor symptoms-will look at recents scans. 06/14/2017 Patient Education: Patient Medication Summary Completed 06/14/2017 Patient Education: Hypertension Completed 06/14/2017 Visit Plan: Hypertension - well controlled - continue with current medications, continue with no added salt diet. Pt has been encouraged to exercise daily. The pt has been advised to call the office if there are any acute concerns about change in blood pressure readings at home. Iron def-check labs Chronic diarrhea-improved with immodium-recommend patient stop digestive support supplement Wbekrpksu-aglxhem-plt claritin Tinea versicolor-restart ketoconazole 04/05/2017 Appointment: Donya Lombardi WPtel: [phone] (30 min) Complex 04/05/2017 Patient Education: Patient Medication Summary Completed 04/05/2017 Visit Plan: Diarrhea - start on flagyl - continue with probiotic - call in one week to report on symptoms. 01/19/2017 Appointment: Salima Carolina WPtel: [facility] (15 min) Moderate 01/19/2017 Patient Education: Patient Medication Summary Completed 01/19/2017 Visit Plan: Allergies -a9doge-SUQ- chronic - recommended pt to use allergy medication as prescribed. Pt has been counseled as to the appropriate use of the medication. Pt to call if allergy symptoms are not controlled with the medication. If using nasal spray, instructions as follows: Nasal spray- use twice daily, one spray per nostril twice daily, after 30 minutes, rinse out nose with saline spray.. Use opposite hand per nostril to spray in the nasal steroid allergy spray. 10/05/2016 Appointment: Donya Lombardi WPtel: [phone] (30 min) Complex 10/05/2016 Patient Education: Patient Medication Summary Completed 10/05/2016 Appointment: Donya Lombardi WPtel: [phone] (30 min) Complex 05/18/2016 Visit Plan: Hypertension - well controlled - continue with current medications, continue with no added salt diet. Pt has been encouraged to exercise daily. The pt has been advised to call the office if there are any acute concerns about change in blood pressure readings at home. Allergies - chronic - recommended pt to use allergy medication as prescribed. Pt has been counseled as to the appropriate use of the medication. Pt to call if allergy symptoms are not controlled with the medication. If using nasal spray, instructions as follows: Nasal spray- use twice daily, one spray per nostril twice daily, after 30 minutes, rinse out nose with saline spray.. Use opposite hand per nostril to spray in the nasal steroid allergy spray. Esophageal Reflux - the patient has been counseled against excessive intake of caffeine, spicy foods, peppermint, and cinnamon - all of which can exacerbate esophageal reflux. The patient is to take medications as prescribed and call the office if the symptoms are not improving. Parkinsons-seeing neurologist in [place] 04/14/2016 Patient Education: Patient Medication Summary Completed 04/14/2016 Patient Education: Hypertension Completed 04/14/2016 Referral: Xenia Holcomb Referral Completed 02/03/2016 Visit Plan: Hypertension - well controlled - continue with current medications, continue with no added salt diet. Pt has been encouraged to exercise daily. The pt has been advised to call the office if there are any acute concerns about change in blood pressure readings at home. Aortic stensosi- refer to Dr Holcomb for evaluation-patinet is due for echo Allergies - chronic - recommended pt to use allergy medication as prescribed. Pt has been counseled as to the appropriate use of the medication. Pt to call if allergy symptoms are not controlled with the medication. If using nasal spray, instructions as follows: Nasal spray- use twice daily, one spray per nostril twice daily, after 30 minutes, rinse out nose with saline spray.. Use opposite hand per nostril to spray in the nasal steroid allergy spray. 01/13/2016 Appointment: (15 min) Moderate 01/13/2016 Patient Education: Patient Medication Summary Completed 01/13/2016 Patient Education: Hypertension Completed 01/13/2016 Care Plan: Referral Order SNOMED-CT : [id number] Ordered 01/13/2016 Visit Plan: Hypertension - well controlled - continue with current medications, continue with no added salt diet. Pt has been encouraged to exercise daily. The pt has been advised to call the office if there are any acute concerns about change in blood pressure readings at home. Anemia-check CBC Chronic cough-history of tobacco use-doing currently smoke but did for 30 years 10/11/2015 Appointment: (30 min) Complex 10/11/2015 Patient Education: Patient Medication Summary Completed 10/11/2015 Patient Education: Hypertension Completed 10/11/2015 Visit Plan: Hypertension - well controlled - continue with current medications, continue with no added salt diet. Pt has been encouraged to exercise daily. The pt has been advised to call the office if there are any acute concerns about change in blood pressure readings at home. Diarrhea-chronic -RX called in for lomotil and instructed on use Hemorrhoids-RX for hydrocortisone rectal cream Generalized weakness-check labs 08/09/2015 Appointment: (30 min) Complex 08/09/2015 Patient Education: Patient Medication Summary Completed 08/09/2015 Patient Education: Hypertension Completed 08/09/2015 Visit Plan: Low back pain-numbness in legs-fecal incontinence-discussed with Dr Carolina-recommend MRI lumbar spine-will do KUB today-patient has a history of a large renal cyst. Instructed patient to increase her probiotic to twice daily-call or go to ER for any worsening or new symptoms as discussed-patient verbalized understanding of plan. 05/24/2015 Visit Plan: Low back pain-numbness in legs-fecal incontinence-discussed with Dr Carolina-recommend MRI lumbar spine-will do KUB today-patient has a history of a large renal cyst. Instructed patient to increase her probiotic to twice daily-call or go to ER for any worsening or new symptoms as discussed-patient verbalized understanding of plan. Recommend front wheeled walker for stability-shower chair to prevent falls in the shower and will fill out handicap application. 05/24/2015 Patient Education: Patient Medication Summary Completed 05/24/2015 Visit Plan: Hypertension - well controlled - continue with current medications, continue with no added salt diet. Pt has been encouraged to exercise daily. The pt has been advised to call the office if there are any acute concerns about change in blood pressure readings at home. Chronic Depression - the pt has symptoms of chronic depression that have been fairly well controlled since the last office visit. The pt has expected periods of exacerbation with abatement of the symptoms with change in situational exposure. No change in current medications. 04/24/2015 Appointment: Salima Carolina [facility]Ptel: [phone] Follow up 04/24/2015 Patient Education: Patient Medication Summary Completed 04/24/2015 Patient Education: Hypertension Completed 04/24/2015 Care Plan: COMPLETE CBC AUTOMATED LOINC : 15709-0 Ordered 04/24/2015 Visit Plan: Sinusitis - Pt has acute infection - pain in face, maxillary region, Rocephin and Kenalog injections given in office for acute symptoms. RX sent electronically, sinus rinses also recommended. Call if symptoms do not show improvement. 02/14/2015 Appointment: Sick 02/14/2015 Patient Education: Patient Medication Summary Completed 02/14/2015 Visit Plan: Hypertension - well controlled - continue with current medications, continue with no added salt diet. Pt has been encouraged to exercise daily. The pt has been advised to call the office if there are any acute concerns about change in blood pressure readings at home. Chronic Depression and anxiety - the pt has symptoms of chronic anxiety and depression that have been fairly well controlled since the last office visit. The pt has expected periods of exacerbation with abatement of the symptoms with change in situational exposure. No change in current medications. Hip pain-much improved- recommend tylenol at bedtime to help with night time symptoms-call if pain uncontrolled. 10/22/2014 Appointment: Follow up 10/22/2014 Appointment: Salmia Carolina WPtel: [phone] [facility] Follow up 10/22/2014 Patient Education: Patient Medication Summary Completed 10/22/2014 Patient Education: Hypertension Completed 10/22/2014 Visit Plan: Hypertension - well controlled - continue with current medications, continue with no added salt diet. Pt has been encouraged to exercise daily. The pt has been advised to call the office if there are any acute concerns about change in blood pressure readings at home. Depression - uncontrolled - Pt has been counseled about the diagnosis of depression, the potential causes, and risks associated with the diagnosis. The pt denies suicidal ideation, or plans. The patient has been counseled about treatment options, and understands the risks associated with treatment of depression, as well as the risks associated with NOT treating the depression. I believe the pt will benefit from medical intervention and an antidepressant has been appropriately prescribed for this patient. Pt started on escitalopram 10mg at . Hip pain - recommended xray of hip on right - may end up needing referral to Orthopedist, may also benefit from physical therapy. 08/22/2014 Appointment: Salima Carolina WPtel: [address] [facility] Follow up 08/22/2014 Patient Education: Patient Medication Summary Completed 08/22/2014 Patient Education: Hypertension Completed 08/22/2014 Care Plan: Referral Order SNOMED-CT : [id number] Ordered 08/22/2014 Visit Plan: Hypertension - well controlled - continue with current medications, continue with no added salt diet. Pt has been encouraged to exercise daily. The pt has been advised to call the office if there are any acute concerns about change in blood pressure readings at home. Renal cyst - pt had drained at [facility] - she will go back to Dr. Tran in 3 months - she is wondering about being evaluated by Dr. Schwartz in 3 months instead of going back to [facility]. Constipation - uncontrolled - I have discussed with the patient the need for adequate fiber and water intake to facilitate soft, easily passed stools. The pt noted understanding of our conversation. I have given the patient a recipe for "power pudding" - equal parts, bran flakes, prune juice, and apple sauce. The pt is to call if symptoms not improved on this regimen. 02/21/2014 Appointment: Salima Carolina WPtel: [address] [place], [place] [id number] Follow up 02/21/2014 Patient Education: Patient Medication Summary Completed 02/21/2014 Patient Education: Hypertension Completed 02/21/2014 Patient Education: Patient Medication Summary Completed 12/25/2013 Visit Plan: N/V/D-Dr Carolina in to evaluate patient-plan for outpatient IVF x 2 days-clear liquid/bland diet-use lomotil prn diarrhea- call if symptoms do not resolve, or if any worse. Renal [id number] to urologist at [facility]-await culture 12/19/2013 Patient Education: Patient Medication Summary Completed 12/19/2013 Visit Plan: Diarrhea - recommended bland diet, low fat diet , start on probiotic, and rehydrate with gatorade-like product. Pt to call if feeling worse, diarrhea becomes bloody, or does not improve with above recommendations. Pt to call for acute worsening of stomach upset or stomach pain. Potassium low in November-recheck chem panel. N/V-RX for promethazine Urinary Tract Infection-discussed natural and expected course of this diagnosis and to alert me if symptoms do not follow expected course, or if any worse. UA positive for infection today in the office-plan to send for culture and will call patient with results. RX sent to patient's pharmacy. Avoid tub baths, restrictive underwear, etc. Recommend patient start on probiotic while taking the antibiotic to prevent diarrhea. Patient verbalized understanding of plan. Rocephin injection today in the office for acute infection. 12/04/2013 Appointment: Donya Lombardi WPtel: [address] [place], [place] [id number] [facility] 12/04/2013 Patient Education: Patient Medication Summary Completed 12/04/2013 Visit Plan: Hypertension - well controlled - continue with current medications - cut hctz to 1/2 pill daily. and take potassium four times a week, continue with no added salt diet. Pt has been encouraged to exercise daily. The pt has been advised to call the office if there are any acute concerns about change in blood pressure readings at home. Abdominal pain - improving - continue with current bland diet, pt to call if abdominal pain not improving. 11/23/2013 Appointment: Salima Carolina WPtel: [address] [place], [place] [id number] [facility] follow up 11/23/2013 Patient Education: Patient Medication Summary Completed 11/23/2013 Patient Education: Hypertension Completed 11/23/2013 Visit Plan: Diarrhea-abdominal discomfort-nausea/vomiting- Dr Carolina in to evaluate patient-plan to admit for close monitoring and further work up-plan to start IVF, check labs including stool studies and obtain a KUB. Patient verbalized understanding of plan. 10/31/2013 Patient Education: Patient Medication Summary Completed 10/31/2013 Visit Plan: Diarrhea - recommended soft bland diet - avoid dairy, start on a probiotic - such as culturelle twice daily, will check stool studies, and also start on flagyl 500mg po tid, pt to call if symptoms not improved. We will have her start on immodium once we have a negative cdiff. 10/18/2013 Appointment: Salima Carolina WPtel: [address] [place], [place] [id number] [facility] 10/18/2013 Patient Education: Patient Medication Summary Completed 10/18/2013 Visit Plan: Hypertension - well controlled - continue with current medications, continue with no added salt diet. Pt has been encouraged to exercise daily. The pt has been advised to call the office if there are any acute concerns about change in blood pressure readings at home. 08/30/2013 Appointment: Salima Carolina WPtel: [phone] [id number] Follow up 08/30/2013 Patient Education: Patient Medication Summary Completed 08/30/2013 Patient Education: Hypertension Completed 08/30/2013 Visit Plan: Hypertension - uncontrolled - the patient's medications have been modified as documented in the visit note. The patient has been counseled to cut back on salt in diet for a no added salt diet, low fat diet, start an exercise program with low weight bearing exercises and higher aerobic activity for heart health. The patient is to check blood pressure readings as an outpatient and either fax, call, or email the readings to the office next week for practicioner to review. The pt is to call for acute concerns. Pt Started on cozaar 50mg. 06/21/2013 Appointment: Salima Carolina WPtel: [phone] [id number] Follow up 06/21/2013 Patient Education: Patient Medication Summary Completed 06/21/2013 Patient Education: Hypertension Completed 06/21/2013 Visit Plan: Hypertension - uncontrolled - the patient's medications have been modified as documented in the visit note. The patient has been counseled to cut back on salt in diet for a no added salt diet, low fat diet, start an exercise program with low weight bearing exercises and higher aerobic activity for heart health. The patient is to check blood pressure readings as an outpatient and either fax, call, or email the readings to the office next week for practicioner to review. The pt is to call for acute concerns. 05/31/2013 Appointment: Salima Carolina WPtel: [facility] New Patient 05/31/2013 Patient Education: Patient Medication Summary Completed 05/31/2013 Patient Education: Hypertension Completed 05/31/2013 Referral: Xenia Holcomb Referral Appointment Requested Referral: [facility] WPtel: [address] [place], [place] [id number] [place] Referral Initiated Referral: Gio 08/03 Referral info faxed. They will call patient to schedule Appointment Requested Referral: Gio Referral Appointment Requested Referral: Anton Alvarado Referral Appointment Requested Instructions Comment PATIENT TO GET FLU/PNEUMONIA VACCINES . Medicare Exam - today we discussed the patients past history, immunizations, preventative exams/ evaluations - colonoscopy, fecal occult blood testing, routine labs for renal function, glucose, cholesterol, osteoporosis evaluations, cardiovascular testing and cancer screenings. We have also discussed mental health and the signs/symptoms of depression. The patient was advised of home safety evaluations and the need to make sure that as the aging process continues, we need to be aware of different ways to make the home a safer place to reside. The patient has also been counseled that exercise is necessary - and of utmost importance as we age to help decrease fall risk and to maintain independence in the home. Today we discussed the need for the patient to create paperwork for Advanced directives as well as for the patient to provide this office with a copy of her DOPA paperwork for health care surrogate. . Bronchitis - acute case of bronchitis identified. Pt has been given steroids as appropriate, and pt has been instructed to call if symptoms are not improved, or if symptoms acutely worsen. Sinusitis - Pt has acute infection - pain in face, maxillary region, Pt informed to use decongestant, RX given to patient, sinus rinses also recommended. Call if symptoms do not show improvement. Allergies - chronic - recommended pt to use allergy medication as prescribed. Pt has been counseled as to the appropriate use of the medication. Pt to call if allergy symptoms are not controlled with the medication. If using nasal spray, instructions as follows: Nasal spray- use twice daily, one spray per nostril twice daily, after 30 minutes, rinse out nose with saline spray.. Use opposite hand per nostril to spray in the nasal steroid allergy spray. [facility]NA[facility] INJECTION FLONASE [facility]AL [facility] LET US KNOW WHEN YOU WANT TO START PT AND WE WILL SCHEDULE IT AT [place] . Hypertension - well controlled - continue with current medications, continue with no added salt diet. Pt has been encouraged to exercise daily. The pt has been advised to call the office if there are any acute concerns about change in blood pressure readings at home. Allergies -cough- kenalog injection today in the office - recommended pt to use allergy medication as prescribed. Pt has been counseled as to the appropriate use of the medication. Pt to call if allergy symptoms are not controlled with the medication. If using nasal spray, instructions as follows: Nasal spray- use twice daily, one spray per nostril twice daily, after 30 minutes, rinse out nose with saline spray.. Use opposite hand per nostril to spray in the nasal steroid allergy spray. Low back pain -patient wants to do PT but wants to until another month or so when the weather is improved -she will call us when she wants to schedule . Diarrhea-abdominal discomfort-nausea/vomiting-Dr Carolina in to evaluate patient-plan to admit for close monitoring and further work up-plan to start IVF, check labs including stool studies and obtain a KUB. Patient verbalized understanding of plan. INCREASE PROBIOTIC TO THREE TIMES DAILY . Diarrhea - recommended bland diet, low fat diet, start on probiotic, and rehydrate with gatorade-like product. Pt to call if feeling worse, diarrhea becomes bloody, or does not improve with above recommendations. Pt to call for acute worsening of stomach upset or stomach pain. Potassium low in November-recheck chem panel. N/V-RX for promethazine Urinary Tract Infection-discussed natural and expected course of this diagnosis and to alert me if symptoms do not follow expected course, or if any worse. UA positive for infection today in the office-plan to send for culture and will call patient with results. RX sent to patient's pharmacy. Avoid tub baths, restrictive underwear, etc. Recommend patient start on probiotic while taking the antibiotic to prevent diarrhea. Patient verbalized understanding of plan. Rocephin injection today in the office for acute infection. appt at [facility] on 08/28/14 @ 2:45pm. Hypertension - well controlled - continue with current medications, continue with no added salt diet. Pt has been encouraged to exercise daily. The pt has been advised to call the office if there are any acute concerns about change in blood pressure readings at home. Depression - uncontrolled - Pt has been counseled about the diagnosis of depression, the potential causes, and risks associated with the diagnosis. The pt denies suicidal ideation, or plans. The patient has been counseled about treatment options, and understands the risks associated with treatment of depression, as well as the risks associated with NOT treating the depression. I believe the pt will benefit from medical intervention and an antidepressant has been appropriately prescribed for this patient. Pt started on escitalopram 10mg at hs. Hip pain - recommended xray of hip on right - may end up needing referral to Orthopedist, may also benefit from physical therapy. . N/V/D-Dr Carolina in to evaluate patient-plan for outpatient IVF x 2 days-clear liquid/bland diet-use lomotil prn diarrhea-call if symptoms do not resolve, or if any worse. Renal kxba-tlmwr-cgjrs to urologist at [facility]-await culture . Shingles - Herpes Zoster - acute in onset - pt started on acyclovir and instructed to call if symptoms worsen or if the pt is concerned about the symptoms. Pt has been advised to avoid contact with persons who may be , or infants, or immunocompromised individuals. Pt has been instructed that shingles will continue to break out and eventually scab over a two week period, until all of the vesicles are scabbed, the pt is to be considered contagious. . Hypertension - uncontrolled - the patient's medications have been modified as documented in the visit note. The patient has been counseled to cut back on salt in diet for a no added salt diet, low fat diet, start an exercise program with low weight bearing exercises and higher aerobic activity for heart health. The patient is to check blood pressure readings as an outpatient and either fax , call, or email the readings to the office next week for practicioner to review. The pt is to call for acute concerns. . Diarrhea - start on flagyl - continue with probiotic - call in one week to report on symptoms. MRI lumbar spine with and without INCREASE PROBIOTICS TO TWICE DAILY I will ask Dr about a handicap laura and I will type the letter to Preeti about your apartment. . Low back pain-numbness in legs-fecal incontinence-discussed with Dr Carolina- recommend MRI lumbar spine-will do KUB today-patient has a history of a large renal cyst. Instructed patient to increase her probiotic to twice daily-call or go to ER for any worsening or new symptoms as discussed-patient verbalized understanding of plan. MRI lumbar spine with and without INCREASE PROBIOTICS TO TWICE DAILY . Low back pain-numbness in legs-fecal incontinence-discussed with Dr Carolina- recommend MRI lumbar spine-will do KUB today-patient has a history of a large renal cyst. Instructed patient to increase her probiotic to twice daily-call or go to ER for any worsening or new symptoms as discussed-patient verbalized understanding of plan. Recommend front wheeled walker for stability-shower chair to prevent falls in the shower and will fill out handicap application. CONTINUE FLONASE ADD CLARITIN . Hypertension - well controlled - continue with current medications, continue with no added salt diet. Pt has been encouraged to exercise daily. The pt has been advised to call the office if there are any acute concerns about change in blood pressure readings at home. Allergies - chronic - recommended pt to use allergy medication as prescribed. Pt has been counseled as to the appropriate use of the medication. Pt to call if allergy symptoms are not controlled with the medication. If using nasal spray, instructions as follows: Nasal spray- use twice daily, one spray per nostril twice daily, after 30 minutes, rinse out nose with saline spray.. Use opposite hand per nostril to spray in the nasal steroid allergy spray. fasting labs kenalog call me if you don't start feeling better . Allergies -u0reio-ESO- chronic - recommended pt to use allergy medication as prescribed. Pt has been counseled as to the appropriate use of the medication. Pt to call if allergy symptoms are not controlled with the medication. If using nasal spray, instructions as follows: Nasal spray- use twice daily, one spray per nostril twice daily, after 30 minutes, rinse out nose with saline spray.. Use opposite hand per nostril to spray in the nasal steroid allergy spray. FLONASE 1 SPRAY EACH NARE DAILY . Hypertension - well controlled - continue with current medications, continue with no added salt diet. Pt has been encouraged to exercise daily. The pt has been advised to call the office if there are any acute concerns about change in blood pressure readings at home. Allergies - chronic - recommended pt to use allergy medication as prescribed. Pt has been counseled as to the appropriate use of the medication. Pt to call if allergy symptoms are not controlled with the medication. If using nasal spray, instructions as follows: Nasal spray- use twice daily, one spray per nostril twice daily, after 30 minutes, rinse out nose with saline spray.. Use opposite hand per nostril to spray in the nasal steroid allergy spray. . Hypertension - uncontrolled - the patient's medications have been modified as documented in the visit note. The patient has been counseled to cut back on salt in diet for a no added salt diet, low fat diet, start an exercise program with low weight bearing exercises and higher aerobic activity for heart health. The patient is to check blood pressure readings as an outpatient and either fax , call, or email the readings to the office next week for practicioner to review. The pt is to call for acute concerns. Pt Started on cozaar 50mg. Prilosec (omeprazole) 20 mg daily for Gastric Esophageal Reflux Zyrtec (Cetirizine) 10 mg daily for allergy symptoms if they do not improve with steroid injection. . Hypertension - well controlled - continue with current medications, continue with no added salt diet. Pt has been encouraged to exercise daily. The pt has been advised to call the office if there are any acute concerns about change in blood pressure readings at home. Allergies - chronic - recommended pt to use allergy medication as prescribed. Pt has been counseled as to the appropriate use of the medication. Pt to call if allergy symptoms are not controlled with the medication. If using nasal spray, instructions as follows: Nasal spray- use twice daily, one spray per nostril twice daily, after 30 minutes, rinse out nose with saline spray.. Use opposite hand per nostril to spray in the nasal steroid allergy spray. Esophageal Reflux - the patient has been counseled against excessive intake of caffeine, spicy foods, peppermint, and cinnamon - all of which can exacerbate esophageal reflux. The patient is to take medications as prescribed and call the office if the symptoms are not improving. Parkinsons-seeing neurologist in [place] FLONASE 1 SPRAY EACH NARE DAILY REFER TO DR HOLCOMB . Hypertension - well controlled - continue with current medications, continue with no added salt diet. Pt has been encouraged to exercise daily. The pt has been advised to call the office if there are any acute concerns about change in blood pressure readings at home. Aortic stensosi-refer to Dr Holcomb for evaluation-patinet is due for echo Allergies - chronic - recommended pt to use allergy medication as prescribed. Pt has been counseled as to the appropriate use of the medication. Pt to call if allergy symptoms are not controlled with the medication. If using nasal spray, instructions as follows: Nasal spray- use twice daily, one spray per nostril twice daily, after 30 minutes, rinse out nose with saline spray.. Use opposite hand per nostril to spray in the nasal steroid allergy spray. . Hypertension - well controlled - continue with current medications, continue with no added salt diet. Pt has been encouraged to exercise daily. The pt has been advised to call the office if there are any acute concerns about change in blood pressure readings at home. Allergies - chronic - recommended pt to use allergy medication as prescribed. Pt has been counseled as to the appropriate use of the medication. Pt to call if allergy symptoms are not controlled with the medication. If using nasal spray, instructions as follows: Nasal spray- use twice daily, one spray per nostril twice daily, after 30 minutes, rinse out nose with saline spray.. Use opposite hand per nostril to spray in the nasal steroid allergy spray. Aortic stenosis-appt with Dr Alvarado on this week . Hypertension - well controlled - continue with current medications, continue with no added salt diet. Pt has been encouraged to exercise daily. The pt has been advised to call the office if there are any acute concerns about change in blood pressure readings at home. Chronic Depression - the pt has symptoms of chronic depression that have been fairly well controlled since the last office visit. The pt has expected periods of exacerbation with abatement of the symptoms with change in situational exposure. No change in current medications. . Hypertension - well controlled - continue with current medications, continue with no added salt diet. Pt has been encouraged to exercise daily. The pt has been advised to call the office if there are any acute concerns about change in blood pressure readings at home. Allergies-stop claritin, try xyzal . Hypertension - well controlled - continue with current medications, continue with no added salt diet. Pt has been encouraged to exercise daily. The pt has been advised to call the office if there are any acute concerns about change in blood pressure readings at home. Wmidpmap-prikkbl-DK called in for lomotil and instructed on use Hemorrhoids-RX for hydrocortisone rectal cream Generalized weakness-check labs . Hypertension - well controlled - continue with current medications, continue with no added salt diet. Pt has been encouraged to exercise daily. The pt has been advised to call the office if there are any acute concerns about change in blood pressure readings at home. HOLD LOSARTAN X 2 WEEKS -MONITOR SYMPTOMS RETURN IN 2 WEEKS FOR BLOOD PRESSURE CHECK . Hypertension - well controlled - continue with current medications, continue with no added salt diet. Pt has been encouraged to exercise daily. The pt has been advised to call the office if there are any acute concerns about change in blood pressure readings at home. I have recommended patient continue with current medications but she insists upon stopping them. Discussed the risks of uncontrolled blood pressure including stroke and with patient. States she will agree to stopping one medication at a time to see if her diarrhea improves. Will hold losartan x 2 weeks and follow up in the office in 2 weeks. I have instructed her to monitor her blood pressure and heart rate and to call if 150/90 or higher. Patient verbalized understanding of plan. Heart murmur -needs echo-will scheduled Twwzzfyc-giccfpa-vpyabvl to increase probiotics and monitor symptoms-will look at recents scans. . Sinusitis - Pt has acute infection - pain in face, maxillary region, Rocephin and Kenalog injections given in office for acute symptoms. RX sent electronically, sinus rinses also recommended. Call if symptoms do not show improvement. WILL LOOK AT ECHO-REFER TO DR ALVARADO IF NEEDED I WILL MAIL YOU A COPY OF YOUR ECHOCARDIOGRAM . HTN-fairly well controlled-patient wants to stop all medcations-we have stopped losartan and blood pressures stable-will decrease amlodipine to 5mg daily but instructed patient on the risks of not adequately treating her blood pressure especially due to her significant aortic stenosis. Instructed her to call if blood pressures 140/90 or higher. Patient verbalized understanding. Aortic stenosis-refer to Dr Alvarado for management Diarrhea - recommended soft bland diet - avoid dairy, start on a probiotic - such as culturelle twice daily, will check stool studies , and also start on flagyl 500mg po tid, pt to call if symptoms not improved. We will have her start on immodium once we have a negative cdiff.. Diarrhea - recommended soft bland diet - avoid dairy, start on a probiotic - such as culturelle twice daily, will check stool studies, and also start on flagyl 500mg po tid, pt to call if symptoms not improved. We will have her start on immodium once we have a negative cdiff. swallow study appt with Dr powers . Hypertension - well controlled - continue with current medications, continue with no added salt diet. Pt has been encouraged to exercise daily. The pt has been advised to call the office if there are any acute concerns about change in blood pressure readings at home. Dysphagia -schedule swallow study Refer to Dr Powers for removal of mole left cheek swallow study appt with Dr powers . Hypertension - well controlled - continue with current medications, continue with no added salt diet. Pt has been encouraged to exercise daily. The pt has been advised to call the office if there are any acute concerns about change in blood pressure readings at home. Dysphagia -schedule swallow study Refer to Dr Powers for removal of mole left cheek -does not want to see him until September . Left hip pain, muscle spasms - pt is OK to start very low dose muscle relaxer for a short term as needed basis - discussed the risk/ benefits and precautions - pt is to notify clinic if symptoms do not imrpove, if they worsen, or with any changes, questions, or cocnerns. Dysuria, incontinence, frequency - will check UA and treat as indicated. weakness, gait instability - pt is to use a front wheeled walker for ambulation due to weakness and gait instability to allow for pt to safely ambulate and perform activities of daily living in her home. . Left hip pain, muscle spasms - pt is OK to start very low dose muscle relaxer for a short term as needed basis - discussed the risk/ benefits and precautions - pt is to notify clinic if symptoms do not imrpove, if they worsen, or with any changes, questions, or cocnerns. Dysuria, incontinence, frequency - will check UA and treat as indicated. . Urinary frequency, over active bladder - UA negative - will give RX - pt is to notify clinic if symptoms do not improve, if they worsen , or with any changes, questions, or concerns. . Urinary frequency, over active bladder - UA negative - will give RX - pt is to notify clinic if symptoms do not improve, if they worsen , or with any changes, questions, or concerns. . Hypertension - well controlled - continue with current medications, continue with no added salt diet. Pt has been encouraged to exercise daily. The pt has been advised to call the office if there are any acute concerns about change in blood pressure readings at home. Renal cyst - pt had drained at [facility] - she will go back to Dr. Tran in 3 months - she is wondering about being evaluated by Dr. Schwartz in 3 months instead of going back to [facility]. Constipation - uncontrolled - I have discussed with the patient the need for adequate fiber and water intake to facilitate soft, easily passed stools. The pt noted understanding of our conversation. I have given the patient a recipe for "power pudding" - equal parts, bran flakes, prune juice, and apple sauce. The pt is to call if symptoms not improved on this regimen. cut hctz to 1/2 pill daily. and take potassium four times a week, . Hypertension - well controlled - continue with current medications - cut hctz to 1/2 pill daily. and take potassium four times a week, continue with no added salt diet. Pt has been encouraged to exercise daily. The pt has been advised to call the office if there are any acute concerns about change in blood pressure readings at home. Abdominal pain - improving - continue with current bland diet, pt to call if abdominal pain not improving. STOP THE DIGESTIVE HEALTH SUPPLEMENT-MONITOR SYMPTOMS CLARITIN 10MG DAILY TO HELP WITH ALLERGIES/POPPING IN EARS . Hypertension - well controlled - continue with current medications, continue with no added salt diet. Pt has been encouraged to exercise daily. The pt has been advised to call the office if there are any acute concerns about change in blood pressure readings at home. Iron def-check labs Chronic diarrhea-improved with immodium-recommend patient stop digestive support supplement Wfddbpkyg-xdsjxhp-mce claritin Tinea versicolor-restart ketoconazole . Hypertension - well controlled - continue with current medications, continue with no added salt diet. Pt has been encouraged to exercise daily. The pt has been advised to call the office if there are any acute concerns about change in blood pressure readings at home. Anemia-check CBC Chronic cough-history of tobacco use-doing currently smoke but did for 30 years Recommend tylenol 2 tabs at bedtime for low back/hip pain Check labs . Hypertension - well controlled - continue with current medications, continue with no added salt diet. Pt has been encouraged to exercise daily. The pt has been advised to call the office if there are any acute concerns about change in blood pressure readings at home. Chronic Depression and anxiety - the pt has symptoms of chronic anxiety and depression that have been fairly well controlled since the last office visit. The pt has expected periods of exacerbation with abatement of the symptoms with change in situational exposure. No change in current medications. Hip pain-much improved-recommend tylenol at bedtime to help with night time symptoms-call if pain uncontrolled.
--- OUTSIDE RECORDS SUMMARY | 2019-01-04 08:14 | XMS REPORT | CCD ---
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 Name Role Phone PP Unavailable CCM Unavailable Summary Purpose Interface Exchange Insurance Providers Payer name Policy type / Coverage type Covered green party ID Effective Begin Date Effective End Date [facility] Commercial Insurance [id number] 2017 Unknown Family history Father Diagnosis Age [...] hours [address] in [place]./ Retired Nov 2013 08/22/2014 Marital status Unknown 05/31/[address]: 5780926 Quit over 10 years ago 05/31/[address]: 161544497 Never drinks alcohol 05/31/2013 Has the patient [...] Kenalog 40 mg/mL suspension for injection RxNorm: 3020711 Milliliter(s) Inj 12/05/2018 12/05/2018 Inactive Protonix 40 mg tablet,delayed release RxNorm: 924916 1 Tablet(s) PO daily 10/04/2018 11/02/2018 Inactive Protonix 40 mg tablet,delayed release RxNorm: 782631 1 Tablet(s) PO daily 10/04/2018 10/03/2018 Inactive amlodipine 5 mg tablet RxNorm: 469114 1 Tablet(s) PO daily 09/201804/05/2019 Active hydrochlorothiazide 25 mg tablet RxNorm: 425934 1 Tablet(s) PO daily 04/11/2018 04/05/2019 Active Myrbetriq 25 mg tablet,extended release RxNorm: 3269288 1 Tablet(s) PO QHS 12/28/2017 03/27/2018 Inactive Myrbetriq 25 mg tablet,extended release RxNorm: 2625380 1 Tablet(s) PO QHS 12/28/2017 12/27/2017 Inactive Myrbetriq 25 mg tablet,extended release RxNorm: 5143669 1 Tablet(s) PO QHS 12/21/2017 No Stop Date Active hydrocodone 10 mg-acetaminophen 325 mg tablet RxNorm: 193277 1 Tablet(s) PO Q4 PRN as needed 12/09/2017 01/07/2018 Inactive Zithromax Z-Javier 250 mg tablet RxNorm: 338382 1 Tablet(s) PO UD 10/29/2017 11/02/2017 Inactive triamcinolone acetonide 0.025 % topical cream RxNorm: 4282892 1 Application TOP BID 10/11/2017 No Stop Date Active valacyclovir 1 gram tablet RxNorm: 002761 1 Tablet(s) PO TID 10/17/2017 Inactive ketoconazole 2 % shampoo RxNorm: 920214 1 Application TOP every other day APPLY HEAD TO TOE, LEAVE ON FOR 5 MINUTES THEN RINSE, DO EVERY OTHER DAY X 2 WEEKS, MAY NEED ANOTHER 3RD 09/08/20172016 Inactive hydrochlorothiazide 25 mg tablet RxNorm: 302097 1 Tablet(s) PO daily TAKE 1 TABLET EVERY DAY 08/02/2017 04/10/2018 Inactive Xyzal 5 mg tablet RxNorm: 221873 1 Tablet(s) PO daily 201608/31/2017 Inactive Keflex 500 mg capsule RxNorm: 121229 1 Capsule(s) PO TID 201607/25/2017 Inactive Keflex 500 mg capsule RxNorm: 730769 1 Capsule(s) PO TID 201607/18/2017 Inactive Kenalog 40 mg/mL suspension for injection RxNorm: 8662311 Milliliter(s) Inj 07/12/2017 07/12/2017 Inactive Zithromax Z-Javier 250 mg tablet RxNorm: 985335 1 Tablet(s) PO UD 07/06/2017 07/10/2017 Inactive amlodipine 5 mg tablet RxNorm: 623161 1 Tablet(s) PO daily 04/10/2018 Inactive amlodipine 5 mg tablet RxNorm: 026967 1 Tablet(s) PO daily 07/01/2017 Inactive promethazine 25 mg tablet RxNorm: 969735 1 Tablet(s) PO Q6 as needed nausea 01/21/2017 No Stop Date Active Probiotic Colon Support 240 mg (3 billion cell) capsule RxNorm: 1 Capsule(s) PO daily 01/19/2017 No Stop Date Active Flagyl 500 mg tablet RxNorm: 341495 1 Tablet(s) PO TID 201601/25/2017 Inactive prednisone 20 mg tablet RxNorm: 477640 1 Tablet(s) PO BID 11/1011/14/2016 Inactive prednisone 20 mg tablet RxNorm: 272927 1 Tablet(s) PO BID 11/1011/09/2016 Inactive doxycycline hyclate 100 mg tablet RxNorm: 294981 1 Tablet(s) PO BID 11/03/2016 11/02/2016 Inactive doxycycline hyclate 100 mg tablet RxNorm: 111868 1 Tablet(s) PO BID 11/03/2016 11/09/2016 Inactive losartan 50 mg tablet RxNorm: 330166 TAKE 1 TABLET EVERY EVENING 10/27/2016 06/28/2017 Inactive escitalopram 10 mg tablet RxNorm: 384829 TAKE 1 TABLET EVERY EVENING 10/12/2016 06/13/2017 Inactive Kenalog 40 mg/mL suspension for injection RxNorm: 0987775 Milliliter(s) Inj 10/05/2016 10/05/2016 Inactive Zithromax Z-Javier 250 mg tablet RxNorm: 737316 1 Tablet(s) PO UD 07/15/2016 01/18/2017 Inactive z pack as directed amlodipine 5 mg tablet RxNorm: 360848 1 Tablet(s) TAKE 1 TABLET TWICE DAILY 06/23/2016 06/28/2017 Inactive hydrochlorothiazide 25 mg tablet RxNorm: 521644 1 Tablet(s) PO daily TAKE 1 TABLET EVERY DAY 06/23/2016 08/01/2017 Inactive Kenalog 40 mg/mL suspension for injection RxNorm: 4939637 Milliliter(s) Inj 04/14/2016 04/14/2016 Inactive omeprazole 20 mg capsule,delayed release RxNorm: 615846 1 Capsule(s) PO daily 04/14/2016 10/04/2016 Inactive losartan 50 mg tablet RxNorm: 953466 1 Tablet(s) PO QPM 201410/11/2016 Inactive amlodipine 5 mg tablet RxNorm: 988129 TAKE 1 TABLET TWICE DAILY 09/16/2015 06/11/2016 Inactive Lomotil 2.5 mg-0.025 mg tablet RxNorm: 6695519 1 Tablet(s) PO PRN take 1 tab after each loose stool max of 8 tabs per day 08/16/2015 01/12/2016 Inactive one after each loose bm. limit 8 per day hydrocortisone 2.5 % rectal cream RxNorm: 604912 1 Application RTL BID PRN 08/09/2015 10/07/2015 Inactive hydrochlorothiazide 25 mg tablet RxNorm: 717927 1 Tablet(s) PO daily TAKE 1 TABLET EVERY DAY 07/02/2015 06/22/2016 Inactive escitalopram 10 mg tablet RxNorm: 155978 1 Tablet(s) PO QPM 11/201403/27/2016 Inactive amlodipine 5 mg tablet RxNorm: 376965 1 Tablet(s) PO BID 201409/15/2015 Inactive Kenalog 40 mg/mL suspension for injection RxNorm: 1503227 Milliliter(s) Inj 02/14/2015 02/14/2015 Inactive [SAVINGS FOR NON-COVERED DRUGS -- BIN:994182, PCN: ASPROD1, Group: XXXXX, ID# [id number], Questions: . THIS IS NOT INSURANCE.] Flonase Allergy Relief 50 mcg/actuation nasal spray, suspension RxNorm: 2 Hardin NASAL daily 02/14/2015 04/14/2015 Inactive [SAVINGS FOR NON-COVERED DRUGS -- BIN:314524, PCN: ASPROD1, Group: XXXXX, ID# [id number], Questions: [phone]. THIS IS NOT INSURANCE.] cefdinir 300 mg capsule RxNorm: 861078 1 Capsule(s) PO BID 02/20/2015 Inactive [SAVINGS FOR NON-COVERED DRUGS -- BIN:834930, PCN: ASPROD1, Group: XXXXX, ID# [id number], Questions: . THIS IS NOT INSURANCE.] ceftriaxone 500 mg solution for injection RxNorm: 3170289 Inj 02/14/2015 02/14/2015 Inactive [SAVINGS FOR NON-COVERED DRUGS -- BIN:073551, PCN: ASPROD1, Group: XXXXX, ID# [id number], Questions: . THIS IS NOT INSURANCE.] hydrochlorothiazide 25 mg tablet RxNorm: 755153 TAKE 1 TABLET EVERY DAY 11/06/2014 07/01/2015 Inactive hydrochlorothiazide 25 mg tablet RxNorm: 135237 1/2 Tablet(s) PO daily 11/06/2014 11/05/2014 Inactive [SAVINGS FOR UNINSURED PATIENTS -- BIN:347815, PCN: ASPROD1, Group: [id number], ID# [id number], Process claim through [facility], for questions: [phone]. THIS IS NOT INSURANCE.] escitalopram 10 mg tablet RxNorm: 177697 1 Tablet(s) PO QPM 07/01/2015 Inactive hydrochlorothiazide 25 mg tablet RxNorm: 690874 1/2 Tablet(s) PO daily 10/22/2014 11/05/2014 Inactive losartan 50 mg tablet RxNorm: 543820 1 Tablet(s) PO QPM 201308/16/2015 Inactive amlodipine 5 mg tablet RxNorm: 250694 1 Tablet(s) PO BID 201307/01/2015 Inactive escitalopram 10 mg tablet RxNorm: 149352 1 Tablet(s) PO QPM 08/21/2014 Inactive escitalopram 10 mg tablet RxNorm: 074801 1 Tablet(s) PO QPM 10/21/2014 Inactive Probiotic Colon Support 240 mg (3 billion cell) capsule RxNorm: 1 Capsule(s) PO BID 02/21/2014 02/15/2015 Inactive Lomotil 2.5 mg-0.025 mg tablet RxNorm: 1901711 1 Tablet(s) PO take 1 tab after each loose stool max of 8 tabs per day 12/22/2013 08/15/2015 Inactive one after each loose bm. limit 8 per day nitrofurantoin 100 mg capsule RxNorm: 848130 1/2 Tablet(s) PO BID 12/22/2013 12/28/2013 Inactive nitrofurantoin 100 mg capsule RxNorm: 378746 1/2 Tablet(s) PO BID 12/22/2013 12/21/2013 Inactive Zofran 4 mg tablet RxNorm: 815548 1 Tablet(s) PO Q6 PRN 12/20 No Stop Date Active Reglan 5 mg tablet RxNorm: 267459 1 Tablet(s) PO BID 201301/17/2014 Inactive potassium chloride ER 10 mEq tablet,extended release RxNorm: 620282 1 Tablet(s) PO daily 12/05/2013 01/12/2016 Inactive Zofran 4 mg tablet RxNorm: 950601 1 Tablet(s) PO Q6 PRN 12/0512/04/2013 Inactive Zofran 4 mg tablet RxNorm: 271534 1 Tablet(s) PO Q6 PRN 12/0512/19/2013 Inactive Rocephin 500 mg solution for injection RxNorm: 557902 1 Milliliter(s) Inj 12/04/2013 12/04/2013 Inactive Bactrim DS 800 mg-160 mg tablet RxNorm: 237559 1 Tablet(s) PO BID 12/04/2013 12/10/2013 Inactive Fish Oil 360 mg-1,200 mg capsule,delayed release RxNorm: 1 Capsule(s) PO daily 11/23/2013 01/12/2016 Inactive Calcium Antacid Ultra Max St 400 mg (1,000 mg) chewable tablet RxNorm: 712938 1 Tablet(s) PO TID 11/23/2013 01/12/2016 Inactive Probiotic Complex 100 mg-500 mg-50 mg capsule RxNorm: 203134 1 Capsule(s) PO BID 11/23/2013 10/22/2014 Inactive metronidazole 500 mg tablet RxNorm: 162451 1 Tablet(s) PO TID 10/26/2013 11/04/2013 Inactive metronidazole 500 mg tablet RxNorm: 915674 1 Tablet(s) PO TID 10/18/2013 10/25/2013 Inactive hydrochlorothiazide 25 mg tablet RxNorm: 737854 1 Tablet(s) PO daily 10/11/2013 10/05/2014 Inactive amlodipine 5 mg tablet RxNorm: 093933 1 Tablet(s) PO BID 201208/21/2014 Inactive losartan 50 mg tablet RxNorm: 732847 1 Tablet(s) PO QPM 201208/21/2014 Inactive hydrochlorothiazide 25 mg tablet RxNorm: 689784 1 Tablet(s) PO daily 07/25/2013 10/10/2013 Inactive hydrochlorothiazide 25 mg tablet RxNorm: 206222 1 Tablet(s) PO daily 06/21/2013 07/24/2013 Inactive losartan 50 mg tablet RxNorm: 442931 1 Tablet(s) PO QPM 201210/10/2013 Inactive ketoconazole 2 % Shampoo RxNorm: 942772 1 Application TOP every other day APPLY HEAD TO TOE, LEAVE ON FOR 5 MINUTES THEN RINSE, DO EVERY OTHER DAY X 2 WEEKS, MAY NEED ANOTHER 3RD 05/31/20132012 Inactive multivitamin capsule RxNorm: 1 Capsule(s) PO No Start Date Active aspirin 81 mg tablet RxNorm: 755563 1 Tablet(s) PO daily No Start Date Active Lutein Vison Formula oral RxNorm: 94481 oral No Start Date Active magnesium 200 mg tablet RxNorm: 1 Tablet(s) PO BID No Start Date Active Fish Oil 360 mg-1,200 mg capsule RxNorm: 982206 1 Capsule(s) PO BID No Start Date Active Vitamin D3 2,000 unit capsule RxNorm: 106019 1 Capsule(s) PO daily No Start Date Active melatonin 5 mg tablet RxNorm: 880951 1 Tablet(s) PO QHS No Start Date Active metoprolol succinate ER 25 mg tablet,extended release 24 hr RxNorm: 314173 1 Tablet(s) PO QPM No Start Date Active ubiquinone oral RxNorm : 68913 oral No Start Date Active Vitamin B-12 5,000 mcg/mL sublingual drops RxNorm: 9381619 1 Milliliter(s) SL daily No Start Date Active promethazine 25 mg tablet RxNorm: 909714 1 Tablet(s) PO Q6 as needed nausea No Start Date 01/20/2017 Inactive Lomotil 2.5 mg-0.025 mg tablet RxNorm: 1352773 1 Tablet(s) PO No Start Date 12/21/2013 Inactive one after each loose bm. limit 8 per day potassium 99 mg tablet RxNorm: 1 Tablet(s) PO daily No Start Date 02/20/2014 Inactive potassium chloride ER 10 mEq tablet,extended release RxNorm: 820714 1 Tablet(s) PO daily No Start Date 12/04/2013 Inactive promethazine 25 mg tablet RxNorm: 360923 1 Tablet(s) PO Q6 PRN No Start Date 10/22/2014 Inactive krill 500 mg-omega-3 150 mg-dha 45 mg-epa 75 mg-phospho- astax capsule RxNorm: 1 Capsule(s) PO daily No Start Date 2016 Inactive Zithromax Z-Javier oral RxNorm: oral No Start Date 07/05/2017 Inactive potassium chloride ER 20 mEq tablet,extended release(part/ cryst) RxNorm: 400246 oral No Start Date 12/04/2013 Inactive PreserVision AREDS 2 250 mg-2.5 mg-0.5 mg capsule RxNorm: 1 Capsule(s) PO BID No Start Date 01/12/2016 Inactive thyroid Oral RxNorm: Oral No Start Date Inactive Zithromax Z-Javier 250 mg tablet RxNorm: 794417 1 Tablet(s) PO UD No Start Date 07/14/2016 Inactive z pack as directed Fish Oil 360 mg-1,200 mg capsule,delayed release RxNorm: Oral No Start Date 11/22/2013 Inactive Probiotic Complex 100 mg-500 mg-50 mg capsule RxNorm: 469018 1 Capsule(s) PO daily No Start Date 11/22/2013 Inactive Super B Aehlevw-H-40 tablet RxNorm: 1 Tablet(s) PO daily No Start Date 01/18/2017 Inactive Calcium Antacid Ultra Max St 400 mg (1,000 mg) chewable tablet RxNorm: 958816 1 PO No Start Date 11/22/2013 Inactive hydrochlorothiazide 25 mg tablet RxNorm: 674167 2 Tablet(s) PO daily No Start Date 06/20/2013 Inactive amlodipine 5 mg tablet RxNorm: 339822 1 Tablet(s) PO BID No Start Date 10/10/2013 Inactive Vitamin D3 2,000 unit capsule RxNorm: 510963 1 Capsule(s) PO daily No Start Date 01/12/2016 Inactive Medication Administered Medication Codes Instructions Start Date Status Kenalog 40 mg/mL suspension for injection RxNorm: 5930403 Milliliter 12/05/2018 Active Kenalog 40 mg/mL suspension for injection RxNorm: 8378534 Milliliter 07/12/2017 No longer Active Kenalog 40 mg/mL suspension for injection RxNorm: 4561472 Milliliter 10/05/2016 No longer Active Kenalog 40 mg/mL suspension for injection RxNorm: 3817301 Milliliter 04/14/2016 No longer Active ceftriaxone 500 mg solution for injection RxNorm: 2188424 02/14/2015 No longer Active Kenalog 40 mg/mL suspension for injection RxNorm: 9489052 Milliliter 02/14/2015 No longer Active Rocephin 500 mg solution for injection RxNorm: 055384 1Milliliter 12/04/2013 No longer Active Immunizations Vaccine [...] Item Item Code Result Date Comp Metabolic Ete931 NA 132 mEq/L 01/10/2018 Comp Metabolic Yqh606 K 3.5 mEq/L 01/10/2018 Comp Metabolic Kgv580 CL 91 mEq/L 01/10/2018 Comp Metabolic Vlf256 CO2 34.0 mEq/L 01/10/2018 Comp Metabolic Ftf212 ANION GAP 11 01/10/2018 Comp Metabolic Mvd434 GLUCOSE 150 mg/dL 01/10/2018 Comp Metabolic Ftv536 Creat 0.8 mg/dL 01/10/2018 Comp Metabolic Fnm075 eGFR 74 ml/min/1.73m2 01/10/2018 Comp Metabolic Lpp268 BUN 16 mg/dL 01/10/2018 Comp Metabolic Dqc090 B/C Ratio 20.3 Ratio 01/10/2018 Comp Metabolic Yjg319 CALCIUM 9.8 mg/dL 01/10/2018 Comp Metabolic Eet210 ALK PHOS 117 U/L 01/10/2018 Comp Metabolic Srx837 AST(SGOT) 12 U/L 01/10/2018 Comp Metabolic Fio337 ALT(SGPT) 11 U/L 01/10/2018 Comp Metabolic Ips246 BILI T 1.1 mg/dL 01/10/2018 Comp Metabolic Koq153 ALBUMIN 4.4 g/dL 01/10/2018 Comp Metabolic Cjy084 TPRO 6.5 g/dL 01/10/2018 Comp Metabolic Fwy546 GLOB 2.1 g/dL 01/10/2018 Comp Metabolic Hqn373 A/G Ratio 2.1 Ratio 01/10/2018 Comp Metabolic Dkk122 Osmo 269 mOsmo 01/10/2018 Cbc With Differential [...] 25.2 pg 01/10/2018 Cbc With Differential Ord2 Clark% 8.6 % 01/10/2018 Cbc With Differential Ord2 [...] 1.54 K/ul 01/10/2018 Cbc With Differential Ord2 Clark ABS# 0.7 K/ul 01/10/2018 Cbc With Differential Ord2 Eos ABS# 0.3 K/ul 01/10/2018 Cbc With Differential Ord2 Baso ABS# 0.0 K/ul 01/10/2018 Tsh Ord6 hTSH II 1.10 uIU/mL 04/05/2017 Comp Metabolic Qww233 NA 138 mEq/L 04/05/2017 Comp Metabolic Eog036 K 3.8 mEq/L 04/05/2017 Comp Metabolic Wex697 CL 98 mEq/L 04/05/2017 Comp Metabolic Iyi920 CO2 31.0 mEq/L 04/05/2017 Comp Metabolic Cwv546 ANION GAP 13 04/05/2017 Comp Metabolic Haz427 GLUCOSE 83 mg/dL 04/05/2017 Comp Metabolic Wwe475 Creat 0.9 mg/dL 04/05/2017 Comp Metabolic Qdx768 eGFR 64 ml/min/1.73m2 04/05/2017 Comp Metabolic Gyq368 BUN 11 mg/dL 04/05/2017 Comp Metabolic Rzm366 B/C Ratio 12.2 Ratio 04/05/2017 Comp Metabolic Zjg322 CALCIUM 8.9 mg/dL 04/05/2017 Comp Metabolic Tdn686 ALK PHOS 58 U/L 04/05/2017 Comp Metabolic Jlc551 AST(SGOT) 15 U/L 04/05/2017 Comp Metabolic Fvz555 ALT(SGPT) 14 U/L 04/05/2017 Comp Metabolic Ijq650 BILI T 0.9 mg/dL 04/05/2017 Comp Metabolic Uss783 ALBUMIN 4.1 g/dL 04/05/2017 Comp Metabolic Bxj159 TPRO 6.2 g/dL 04/05/2017 Comp Metabolic Bdm579 GLOB 2.2 g/dL 04/05/2017 Comp Metabolic Yhk358 A/G Ratio 1.9 Ratio 04/05/2017 Comp Metabolic Ogt925 Osmo 274 mOsmo 04/05/2017 Cbc With Differential [...] 21.2 % 04/05/2017 Cbc With Differential Ord2 Clark% 8.3 % 04/05/2017 Cbc With Differential Ord2 [...] 1.28 K/ul 04/05/2017 Cbc With Differential Ord2 Clark ABS# 0.5 K/ul 04/05/2017 Cbc With Differential [...] Ord15 CALCIUM 9.3 mg/dL 08/27/2016 Comp Metabolic Jwx794 NA 138 mEq/L 10/11/2015 Comp Metabolic Cxc571 K 3.8 mEq/L 10/11/2015 Comp Metabolic Clz247 CL 98 mEq/L 10/11/2015 Comp Metabolic Yfp278 CO2 29.0 mEq/L 10/11/2015 Comp Metabolic Nzk377 ANION GAP 15 10/11/2015 Comp Metabolic Tmm297 GLUCOSE 76 mg/dL 10/11/2015 Comp Metabolic Cbl392 Creat 0.9 mg/dL 10/11/2015 Comp Metabolic Nkr171 eGFR 68 ml/min/1.73m2 10/11/2015 Comp Metabolic Lms573 BUN 14 mg/dL 10/11/2015 Comp Metabolic Czi533 B/C Ratio 16.3 Ratio 10/11/2015 Comp Metabolic Ksd141 CALCIUM 9.7 mg/dL 10/11/2015 Comp Metabolic Jdq232 ALK PHOS 73 U/L 10/11/2015 Comp Metabolic Imz398 AST(SGOT) 16 U/L 10/11/2015 Comp Metabolic Qdu861 ALT(SGPT) 14 U/L 10/11/2015 Comp Metabolic Suj606 BILI T 0.8 mg/dL 10/11/2015 Comp Metabolic Ada372 ALBUMIN 4.6 g/dL 10/11/2015 Comp Metabolic Vxw672 TPRO 7.1 g/dL 10/11/2015 Comp Metabolic Kon972 GLOB 2.5 g/dL 10/11/2015 Comp Metabolic Jpl957 A/G Ratio 1.8 Ratio 10/11/2015 Comp Metabolic Fyy329 Osmo 275 mOsmo 10/11/2015 Cbc With Differential [...] hTSH II 1.70 uIU/mL 10/11/2015 Comp Metabolic Kel588 NA 130 mEq/L 08/09/2015 Comp Metabolic Uta647 K 3.6 mEq/L 08/09/2015 Comp Metabolic Eiq974 CL 94 mEq/L 08/09/2015 Comp Metabolic Ehk072 CO2 30.0 mEq/L 08/09/2015 Comp Metabolic Boh513 ANION GAP 10 08/09/2015 Comp Metabolic Bzn691 GLUCOSE 156 mg/dL 08/09/2015 Comp Metabolic Dfq017 Creat 0.9 mg/dL 08/09/2015 Comp Metabolic Pyc543 eGFR 67 ml/min/1.73m2 08/09/2015 Comp Metabolic Tfj080 BUN 23 mg/dL 08/09/2015 Comp Metabolic Jih008 B/C Ratio 26.4 Ratio 08/09/2015 Comp Metabolic Tjy350 CALCIUM 9.6 mg/dL 08/09/2015 Comp Metabolic Muj858 ALK PHOS 95 U/L 08/09/2015 Comp Metabolic Hrt119 AST(SGOT) 12 U/L 08/09/2015 Comp Metabolic Wel274 ALT(SGPT) 12 U/L 08/09/2015 Comp Metabolic Fia258 BILI T 0.7 mg/dL 08/09/2015 Comp Metabolic Cvb640 ALBUMIN 4.1 g/dL 08/09/2015 Comp Metabolic Slu241 TPRO 6.4 g/dL 08/09/2015 Comp Metabolic Uen689 GLOB 2.3 g/dL 08/09/2015 Comp Metabolic Sti651 A/G Ratio 1.8 Ratio 08/09/2015 Comp Metabolic Njf162 Osmo 268 mOsmo 08/09/2015 Cbc With Differential [...] Ord2 RDW 14.0 % 08/09/2015 CHEM 14 2305308 AST 14 U/L 12/25/2013 CHEM 14 2443413 ALT 17 IU/L 12/25/2013 CHEM 14 4847637 BUN 8 MG/DL 12/25/2013 CHEM 14 2299710 ALBUMIN 4.1 GM/DL 12/25/2013 CHEM 14 7601599 CHLORIDE 98 MMOL/L 12/25/2013 CHEM 14 6906968 BILI TOT 0.9 MG/DL 12/25/2013 CHEM 14 6967988 ALK PHOS 55 U/L 12/25/2013 CHEM 14 0243292 SODIUM 133 MMOL/L 12/25/2013 CHEM 14 8026685 CREATININE 0.86 MG/DL 12/25/2013 CHEM 14 6004116 CALCIUM 9.2 MG/DL 12/25/2013 CHEM 14 0846764 POTASSIUM 3.9 MMOL/L 12/25/2013 CHEM 14 3680320 PROT TOT 6.1 GM/DL 12/25/2013 CHEM 14 7548659 GLUCOSE 95 MG/DL 12/25/2013 CHEM 14 2481326 BICARB 29 MMOL/L 12/25/2013 CHEM 14 7810411 ANION GAP 6 MEQ/L 12/25/2013 GFR CALC 7070376 GFR AA >60 ML/MIN 12/25/2013 GFR CALC 7182358 GFR NON-AA >60 ML/MIN 12/25/2013 LIPASE 6280217 LIPASE 17 IU/L 12/05/2013 AMYLASE 5750403 AMYLASE 49 IU/L 12/05/2013 CHEM 14 3311128 AST 16 U/L 12/04/2013 CHEM 14 9454151 ALT 14 IU/L 12/04/2013 CHEM 14 3189141 BUN 18 MG/DL 12/04/2013 CHEM 14 8888452 ALBUMIN 4.6 GM/DL 12/04/2013 CHEM 14 0354526 CHLORIDE 99 MMOL/L 12/04/2013 CHEM 14 7202429 BILI TOT 1.5 MG/DL 12/04/2013 CHEM 14 1934326 ALK PHOS 60 U/L 12/04/2013 CHEM 14 4015214 SODIUM 134 MMOL/L 12/04/2013 CHEM 14 1075056 CREATININE 0.92 MG/DL 12/04/2013 CHEM 14 7316352 CALCIUM 9.7 MG/DL 12/04/2013 CHEM 14 6905055 POTASSIUM 3.4 MMOL/L 12/04/2013 CHEM 14 6179376 PROT TOT 6.9 GM/DL 12/04/2013 CHEM 14 1069357 GLUCOSE 105 MG/DL 12/04/2013 CHEM 14 1840802 BICARB 27 MMOL/L 12/04/2013 CHEM 14 1271337 ANION GAP 8 MEQ/L 12/04/2013 GFR CALC 4796626 GFR AA >60 ML/MIN 12/04/2013 GFR CALC GFR NON-AA 59.0L ML/MIN 12/04/2013 URINALYSIS NONAUTO W/O SCOPE 99214 Specific [place] 1.015 DateTime(Free Text in [employer]) URINALYSIS NONAUTO W/O SCOPE 81699 PH 6.0 DateTime(Free Text in [employer]) URINALYSIS NONAUTO W/O SCOPE 12389 GLUCOSE neg DateTime( Free Text in [employer]) URINALYSIS NONAUTO W/O SCOPE 60587 Protein neg DateTime( Free Text in [employer]) URINALYSIS NONAUTO W/O SCOPE 90177 Blood neg DateTime(Free Text in [employer]) URINALYSIS NONAUTO W/O SCOPE 09324 Bilirubin neg DateTime(Free Text in [employer]) URINALYSIS NONAUTO W/O SCOPE 09160 Ketones neg DateTime( Free Text in [employer]) URINALYSIS NONAUTO W/O SCOPE 70377 Urobilinogen neg DateTime(Free Text in [employer]) URINALYSIS NONAUTO W/O SCOPE 79649 Nitrite 2+ DateTime( Free Text in [employer]) URINALYSIS NONAUTO W/O SCOPE 53222 Leukocytes DateTime( Free Text in [employer]) Review [...] CPT-4: G8553 08/02/2017 THER/PROPH/DIAG INJ SC/IM CPT-4: 56248 07/12/2017 TRIAMCINOLONE ACET INJ NOS CPT-4: J3301 07/12/2017 PRESCRIP TRANSMIT VIA ERX SY CPT-4: G8553 01/19/2017 TRIAMCINOLONE ACET INJ NOS CPT-4: J3301 10/05/2016 TRIAMCINOLONE ACET INJ NOS CPT-4: J3301 04/14/2016 THER/PROPH/DIAG INJ SC/IM CPT-4: 18446 04/14/2016 THER/PROPH/DIAG INJ SC/IM CPT-4: 88466 02/14/2015 TRIAMCINOLONE ACET INJ NOS CPT-4: J3301 02/14/2015 ROCEPHIN, PER 250 MG CPT-4: J0696 02/14/2015 ROUTINE VENIPUNCTURE CPT-4: 29441 12/25/2013 URINALYSIS NONAUTO W/O SCOPE CPT-4: 82385 12/04/2013 ROUTINE VENIPUNCTURE CPT-4: 36760 12/04/2013 ROCEPHIN, PER 250 MG CPT-4: J0696 12/04/2013 THER/PROPH/DIAG INJ SC/IM CPT-4: 79768 12/04/2013 PRESCRIP TRANSMIT VIA ERX SY CPT-4: G8553 10/18/2013 PRESCRIP TRANSMIT VIA ERX SY CPT-4: G8553 06/21/2013 PRESCRIP TRANSMIT VIA ERX SY CPT-4: G8553 05/31/2013 Vital Signs Date Vital 12/05/2018 Blood Pressure 1: 122/66 Code : 8480-6 BMI: 26.0 Code : 77422-7 Heart Rate 1 : 85 bpm Height: 5'3" SpO2: 96% Weight: 147 lbs 08/02/2018 Blood Pressure 1: 132/64 Code : 8480-6 BMI: 25.5 Code : 42796-4 Heart Rate 1 : 87 bpm Height: 5'3" SpO2: 98% Weight: 144 lbs 04/08/2018 Blood Pressure 1: 138/78 Code : 8480-6 BMI: 25.2 Code : 72010-9 Heart Rate 1 : 89 bpm Height: 5'3" SpO2: 96% Weight: 142 lbs 01/31/2018 Blood Pressure 1: 142/64 Code : 8480-6 BMI: 25.2 Code : 00437-0 Heart Rate 1 : 88 bpm Height: [...] Code : 8480-6 BMI: 26.6 Code : 42293-7 Heart Rate 1 : 94 bpm Height: 5'3" SpO2: 98% Weight: 150 lbs 08/03/2017 Blood Pressure 1: 132/76 Code : 8480-6 BMI: 25.2 Code : 03808-7 Heart Rate 1 : 89 bpm Height: 5'3" SpO2: 97% Waist Measure (cm): 79 cm Weight: 142 lbs 08/02/2017 Blood Pressure 1: 140/58 Code : 8480-6 BMI: 25.2 Code : 06243-6 Heart Rate 1 : 61 bpm Height: 5'3" SpO2: 95% Weight: 142 lbs 07/12/2017 Blood Pressure 1: 126/60 Code : 8480-6 BMI: 25.9 Code : 81615-5 Heart Rate 1 : 84 bpm Height: 5'3" SpO2: 95% Weight: 146 lbs 06/29/2017 Blood Pressure 1: 140/76 Code : 8480-6 Blood Pressure 1: 132/70 Code: 8480-6 BMI: 25.7 Code: 74904-4 Heart Rate 1: 88 bpm Height: 5'3" SpO2: 97% Weight: 145 lbs 06/14/2017 Blood Pressure 1: 122/62 Code : 8480-6 BMI: 25.7 Code : 35357-6 Heart Rate 1 : 80 bpm Height: 5'3" SpO2: 96% Weight: 145 lbs 04/05/2017 Blood Pressure 1: 138/70 Code : 8480-6 BMI: 25.7 Code : 72586-7 Heart Rate 1 : 76 bpm Height: 5'3" SpO2: 96% Weight: 145 lbs 01/19/2017 Blood Pressure 1: 130/60 Code : 8480-6 BMI: 26.9 Code : 25114-0 Heart Rate 1 : 81 bpm Height: 5'3" SpO2: 96% Weight: 153 lbs 10/05/2016 Blood Pressure 1: 128/86 Code : 8480-6 BMI: 27.5 Code : 71014-8 Heart Rate 1 : 78 bpm Height: 5'3" SpO2: 94% Weight: 156 lbs 04/14/2016 Blood Pressure 1: 140/72 Code : 8480-6 BMI: 26.8 Code : 60287-8 Heart Rate 1 : 78 bpm Height: 5'3" SpO2: 94% Weight: 152 lbs 01/13/2016 Blood Pressure 1: 128/68 Code : 8480-6 BMI: 26.4 Code : 42941-7 Heart Rate 1 : 84 bpm Height: 5'3" SpO2: 91% Weight: 150 lbs 10/11/2015 Blood Pressure 1: 138/68 Code : 8480-6 BMI: 26.1 Code : 14082-5 Height: 5'3" Weight: 148 lbs 08/09/2015 Blood Pressure 1: 140/62 Code : 8480-6 BMI: 25.2 Code : 77067-7 Heart Rate 1 : 86 bpm Height: 5'3" SpO2: 97% Weight: 143 lbs 05/24/2015 Blood Pressure 1: 132/68 Code : 8480-6 BMI: 26.1 Code : 79128-8 Heart Rate 1 : 79 bpm Height: 5'3" SpO2: 96% Weight: 148 lbs 04/24/2015 Blood Pressure 1: 168/70 Code : 8480-6 BMI: 26.4 Code : 71666-4 Heart Rate 1 : 75 bpm Height: 5'3" SpO2: 97% Weight: 150 lbs 02/14/2015 Blood Pressure 1: 124/64 Code : 8480-6 BMI: 25.5 Code : 66559-9 Heart Rate 1 : 87 bpm Height: 5'3" SpO2: 97% Temperature: 37.6 (C) / 99.7 (F) Weight: 145 lbs 10/22/2014 Blood Pressure 1: 142/74 Code : 8480-6 Heart Rate 1: 72 bpm Weight: 148 lbs 08/22/2014 Blood Pressure 1: 132/72 Code : 8480-6 BMI: 25.9 Code : 20994-2 Heart Rate 1 : 78 bpm Height: 5'3" Weight: 147 lbs 02/21/2014 Blood Pressure 1: 124/62 Code : 8480-6 BMI: 24.3 Code : 68008-6 Heart Rate 1 : 64 bpm Height: 5'3" Weight: 138 lbs 12/19/2013 Blood Pressure 1: 124/62 Code : 8480-6 Heart Rate 1: 84 bpm SpO2: 98% Weight: 139 lbs 12/04/2013 Blood Pressure 1: 142/64 Code : 8480-6 Heart Rate 1: 88 bpm Temperature: 36.6 (C) / 97.8 (F) Weight: 139 lbs 11/23/2013 Blood Pressure 1: 126/68 Code : 8480-6 BMI: 24.0 Code : 39588-4 Heart Rate 1 : 76 bpm Height: [...] Code : 8480-6 BMI: 25.3 Code : 73001-8 Heart Rate 1 : 84 bpm Height: 5'4" Weight: 150 lbs 06/21/2013 Blood Pressure 1: 140/70 Code : 8480-6 Blood Pressure 2: 148/73 Code: 8480-6 BMI: 25.0 Code: 11750-4 Heart Rate 1: 78 bpm Height: 5'4" Weight: 148 lbs 05/31/2013 Blood Pressure 1: 156/92 Code : 8480-6 BMI: 25.0 Code : 70280-4 Heart Rate 1 : 80 bpm Height: [...] Present Encounters Encounter Performer Location Codes Date ([id number]) 83945 EST. PATIENT, LEVEL IV Diagnosis: Essential (primary) hypertension[ICD10: I10] Diagnosis: Other allergic rhinitis[ICD10: J30.89] Diagnosis: Cough[ICD10: R05] Diagnosis: Low back pain[ICD10: M54.5] Donya Carolina MD, [facility] CPT-4: 50642 12/05/2018 [id number]) 62216 EST. PATIENT, LEVEL IV Diagnosis: Essential (primary) hypertension[ICD10: I10] Diagnosis: Dysphagia, oropharyngeal phase[ICD10: R13.12] Diagnosis: 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[ICD10: D22.39] Donya Carolina MD, [facility] CPT-4: 29509 08/02/2018 [id number] 99740 EST. PATIENT, LEVEL III Diagnosis: Essential (primary) hypertension[ICD10: I10] Diagnosis: Other allergic rhinitis[ICD10: J30.89] Donya Carolina MD, [facility] CPT-4: 87909 04/08/2018 [id number] 14550 EST. PATIENT, LEVEL III Diagnosis: Essential (primary) hypertension[ICD10: I10] Diagnosis: Other allergic rhinitis[ICD10: J30.89] Donya Carolina MD, [facility] CPT-4: 04965 01/31/2018 ([id number]) 29775 EST. PATIENT, LEVEL III Diagnosis: Essential (primary) hypertension[ICD10: I10] Diagnosis: Other allergic rhinitis[ICD10: J30.89] Donya Carolina MD, [facility] CPT-4: 05811 01/10/2018 11903 EST. PATIENT, LEVEL IV Diagnosis: Overactive bladder[ICD10: N32.81] Piper Carolina MD, [facility] CPT -4: 59382 12/21/2017 96026 EST. PATIENT, LEVEL III Diagnosis: Other muscle spasm[ICD10: M62.838] Diagnosis: Pain in left hip[ICD10: M25.552] Diagnosis: Dysuria[ICD10: R30.0] Diagnosis: Weakness[ICD10: R53.1] Diagnosis: Unsteadiness on feet[ICD10: R26.81] Piper Carolina MD, [facility] CPT-4: 62284 12/03/2017 11053 EST. PATIENT, LEVEL III Diagnosis: Zoster without complications[ICD10: B02.9] Piper Carolina MD, [facility] CPT-4: 96690 10/11/2017 ([id number]) 60122 EST. PATIENT, LEVEL IV Diagnosis: Essential (primary) hypertension[ICD10: I10] Diagnosis: Nonrheumatic aortic (valve) stenosis[ICD10: I35.0] Diagnosis: Other allergic rhinitis[ICD10: J30.89] Donya Carolina MD, [facility] CPT-4: 60811 08/02/2017 24748 EST. PATIENT, LEVEL IV Diagnosis: Other acute sinusitis[ICD10: J01.80] Diagnosis: Other allergic rhinitis[ICD10: J30.89] Diagnosis: Wheezing[ICD10: R06.2] Piper Carolina MD, [facility] CPT-4: 81297 07/12/2017 ([id number]) 68981 EST. PATIENT, LEVEL IV Diagnosis: Nonrheumatic aortic (valve) stenosis[ICD10: I35.0] Diagnosis: Essential (primary) hypertension[ICD10: I10] Donya Carolina MD, [facility] CPT-4: 21726 06/29/2017 ([id number]) 46828 EST. 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 PATIENT, LEVEL III Diagnosis: Allergic rhinitis due to pollen[ICD10: J30.1] Diagnosis: Cough[ICD10: R05] Donya Carolina MD, [facility] CPT-4: 60803 10/05/2016 ([id number]) 43256 EST. PATIENT, LEVEL IV Diagnosis: Essential (primary) hypertension[ICD10: I10] Diagnosis: Gastro-esophageal reflux disease without esophagitis[ICD10: K21.9] Diagnosis: Allergic rhinitis due to pollen[ICD10: J30.1] Diagnosis: Parkinson's disease[ICD10: G20] Donya Carolina MD, [facility] CPT-4: 11173 04/14/2016 ([id number]) 08042 EST. PATIENT, LEVEL IV Diagnosis: Essential (primary) hypertension[ICD10: I10] Diagnosis: Nonrheumatic aortic (valve) stenosis[ICD10: I35.0] Diagnosis: Allergic rhinitis, unspecified[ICD10: J30.9] Donya Carolina MD, [facility] CPT-4: 41119 01/13/2016 ([id number]) 29107 EST. 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 PATIENT, LEVEL IV Diagnosis: Essential (primary) hypertension[ICD10: I10] Diagnosis: Other specified noninfective gastroenteritis and colitis[ICD10: K52.89] Diagnosis: Unspecified hemorrhoids[ICD10: K64.9] Donya Carolina MD, [facility] CPT-4: 88845 08/09/2015 ([id number]) 44918 EST. PATIENT, LEVEL IV Diagnosis: Lumbar back pain[ICD9: 724.2] Diagnosis: Fecal incontinence[ICD9: 787.60] Diagnosis: Numbness of legs[ICD9: 782.0] Diagnosis: Diarrhea[ICD9: 787.91] Salima Carolina MD, [facility] CPT-4: 36056 05/24/2015 ([id number]) 74678 EST. PATIENT, LEVEL IV Diagnosis: ESSENTIAL HYPERTENSION[ICD9: 401.9] Diagnosis: DEPRESSIVE DISORDER NEC[ICD9: 311] Salima Carolina MD, [facility] CPT-4: 22491 04/24/2015 ([id number]) 00482 EST. PATIENT, LEVEL III Diagnosis: ACUTE SINUSITIS[ICD9: 461.9] Diagnosis: COUGH[ICD9: 786.2] Donya Carolina MD, [facility] CPT-4: 88846 02/14/2015 ([id number]) 68638 EST. PATIENT, LEVEL IV Diagnosis: ESSENTIAL HYPERTENSION[ICD9: 401.9] Diagnosis: Depression[ICD9: 311] Diagnosis: Hip pain[ICD9: 719.45] Salima Carolina MD, [facility] CPT-4: 99954 10/22/2014 ([id number]) 64168 EST. PATIENT, LEVEL IV Diagnosis: ESSENTIAL HYPERTENSION[ICD9: 401.9] Diagnosis: Hip pain[ICD9: 719.45] Diagnosis: Depression[ICD9: 311] Salima Carolina MD, [facility] CPT-4: 71369 08/22/2014 ([id number]) 63787 EST. PATIENT, LEVEL IV Diagnosis: ESSENTIAL HYPERTENSION[SNOMED: 43035256] Diagnosis: Renal cyst[ICD9: 753.10] Diagnosis: Constipation - functional[ICD9: 564.09] Salima Carolina MD [facility] CPT-4: 46008 02/21/2014 ([id number]) 07742 EST. PATIENT, LEVEL III Diagnosis: Nausea and vomiting[ICD9: 787.01] Diagnosis: Diarrhea[ICD9: 787.91] Diagnosis: Renal cyst[ICD9: 753.10] Diagnosis: UTI[ICD9: 599.0] Salima Carolina MD [facility] CPT-4: 34955 12/19/2013 ([id number]) 36639 EST. PATIENT, LEVEL III Diagnosis: Diarrhea[ICD9: 787.91] Diagnosis: Nausea and vomiting[ICD9: 787.01] Diagnosis: UTI[ICD9: 599.0] Donya Carolina MD [facility] CPT-4: 37243 12/04/2013 ([id number]) 16485 EST. PATIENT, LEVEL III Diagnosis: ESSENTIAL HYPERTENSION[SNOMED: 46200735] Diagnosis: Abdominal pain[ICD9: 789.00] Salima Carolina MD [facility] CPT- 4: 80566 11/23/2013 ([id number]) Patient admitted to the hospital from clinic (NO CHARGE) Diagnosis: Diarrhea[ICD9: 787.91] Diagnosis: Abdominal discomfort[ICD9: 789.00] Diagnosis: Nausea and vomiting[ICD9: 787.01] Salima Carolina MD [facility] CPT-4: 11107M 10/31/2013 ([id number]) 42314 EST. PATIENT, LEVEL III Diagnosis: Diarrhea[ICD9: 787.91] Salima Carolina MD [facility] CPT-4: 13964 10/18/2013 ([id number]) 06609 EST. PATIENT, LEVEL III Diagnosis: ESSENTIAL HYPERTENSION[SNOMED: 17573829] Salima Carolina MD [facility] CPT-4: 56209 08/30/2013 ([id number]) 71645 EST. PATIENT, LEVEL III Diagnosis: ESSENTIAL HYPERTENSION[SNOMED: 94891315] [facility] CPT-4: 61911 06/21/2013 ([id number]) 67474 EST. PATIENT, LEVEL III Diagnosis: ESSENTIAL HYPERTENSION[SNOMED: 79995058] [facility] CPT-4: 89009 05/31/2013 Plan of Care Planned Activity Notes [...] Lipid Pending 12/05/2018 Appointment: Donya Lombardi WPtel: [address] [place], [place] [phone] (15 min) Moderate 08/19/2018 Visit Plan: Hypertension [...] until 08/02/2018 Appointment: Donya Lombardi WPtel: [phone] [phone] (15 min) Moderate 08/02/2018 Patient Education: Patient Medication Summary Completed 08/02/2018 Patient Education: Hypertension Completed 08/02/2018 Care Plan: Referral Order SNOMED-CT : 187381398 Pending 08/02/2018 Visit Plan: Hypertension - well controlled - continue with current medications, continue with no added salt diet. Pt has been encouraged to exercise daily. The pt has been advised to call the office if there are any acute concerns about change in blood pressure readings at home. Allergies-stop claritin, try xyzal 04/08/2018 Appointment: Donya Lombardi WPtel: [phone] [phone] (15 min) Moderate 04/08/2018 Patient Education: Patient [...] spray. 01/31/2018 Appointment: Donya Lombardi WPtel: [phone] [phone] (30 min) Complex 01/31/2018 Patient Education: Patient Medication Summary Completed 01/31/2018 Appointment: Salima Carolina WPtel: [facility] (15 min) Moderate 01/19/2018 Visit Plan: [...] spray. 01/10/2018 Appointment: Donya Lombardi WPtel: [phone] [phone] [place] [address] (15 min) Moderate 01/10/2018 Patient Education: Patient [...] or concerns. 12/21/2017 Appointment: Piper Salazar WPtel: [facility]3 [facility] (30 min) Complex 12/21/2017 Patient Education: Patient [...] indicated. 12/03/2017 [facility]ment[phone] (30 min) Complex 12/03/2017 Patient Education: Patient [...] contagious. 10/11/2017 Appointment[phone] (30 min) Complex 10/11/2017 Patient Education: Patient [...] surrogate. 08/03/2017 Appointment: Donya Lombardi WPtel: [phone] [place] [phone] [facility] - Annual Wellness Visit 08/03/2017 Patient Education: [...] week 08/02/2017 Appointment: Donya Lombardi WPtel: [phone] [phone] (30 min) Complex 08/02/2017 Patient Education: Patient [...] spray. 07/12/2017 Appointment: Piper Salazar WPtel: [phone] (15 min) Moderate 07/12/2017 Patient Education: [...] management 06/29/2017 Appointment: [phone] (30 min) Complex 06/29/2017 Patient Education: Patient Medication Summary Completed 06/29/2017 Patient Education: Hypertension Completed 06/29/2017 Care Plan: Referral Order SNOMED-CT : 035759737 Pending 06/29/2017 Visit Plan: Hypertension - well [...] with immodium-recommend patient stop digestive support supplement Mnmzyfuru-wpcywgl-wei claritin Tinea versicolor-restart ketoconazole 04/05/2017 Appointment: Donya Lombardi WPtel: [facility]0 [phone] (30 min) Complex 04/05/2017 Patient Education: Patient Medication Summary Completed 04/05/2017 Visit Plan: Diarrhea - start on flagyl - continue with probiotic - call in one week to report on symptoms. 01/19/2017 Appointment: Salima Carolina WPtel: [facility]1 [facility]66[facility] (15 min) Moderate 01/19/2017 Patient Education: Patient Medication Summary Completed 01/19/2017 Visit Plan: Allergies -c4gelp-ZVG- chronic - recommended pt to use allergy [...] allergy spray. 10/05/2016 Appointment: Donya Lombardi WPtel: [phone] (30 min) Complex 10/05/2016 Patient Education: Patient Medication Summary Completed 10/05/2016 Appointment: Donya Lombardi WPtel: [phone] (30 min) Complex 05/18/2016 Visit Plan: Hypertension [...] symptoms are not improving. Parkinsons-seeing neurologist in [place] 04/14/2016 Patient Education: Patient Medication Summary Completed [...] 01/13/2016 Care Plan: Referral Order SNOMED-CT : [id number] Ordered 01/13/2016 Visit Plan: Hypertension - well [...] and will fill out handicap application. 05/24/2015 Visit Plan: Low back pain-numbness in legs-fecal incontinence-discussed with Dr Carolina-recommend MRI lumbar spine-will do KUB today-patient has a history of a large renal cyst. Instructed patient to increase her probiotic to twice daily-call or go to ER for any worsening or new symptoms as discussed-patient verbalized understanding of plan. 05/24/2015 Patient Education: Patient Medication Summary Completed [...] medications. 04/24/2015 Appointment: [phone] [facility] 04/24/2015 Patient Education: Patient Medication Summary Completed 04/24/2015 Patient Education: Hypertension Completed 04/24/2015 Care Plan: COMPLETE CBC AUTOMATED LOINC : 77637-1 Ordered 04/24/2015 Visit Plan: Sinusitis - Pt [...] uncontrolled. 10/22/2014 Appointment: Follow up 10/22/2014 Appointment: [phone] [facility] 10/22/2014 Patient Education: Patient [...] physical therapy. 08/22/2014 Appointment: Sal[phone] Follow [facility] 08/22/2014 Patient Education: Patient Medication Summary Completed 08/22/2014 Patient Education: Hypertension Completed 08/22/2014 Care Plan: Referral Order SNOMED-CT : [id number] Ordered 08/22/2014 Visit Plan: Hypertension - well controlled - continue with current medications, continue with no added salt diet. Pt has been encouraged to exercise daily. The pt has been advised to call the office if there are any acute concerns about change in blood pressure readings at home. Renal cyst - pt had drained at [facility] - she will go back to Dr. Tran in 3 months - she is wondering about being evaluated by Dr. Schwartz in 3 months instead of going back to [facility]. Constipation - uncontrolled - I have discussed [...] this regimen. 02/21/2014 Appointment: Salima Carolina WPtel: [address] [place], [place] [address] Follow up 02/21/2014 Patient Education: Patient Medication Summary Completed 02/21/2014 Patient Education: Hypertension Completed 02/21/2014 Patient Education: Patient Medication Summary Completed 12/25/2013 Visit Plan: N/V/D-Dr Carolina in to evaluate patient-plan for outpatient IVF x 2 days-clear liquid/bland diet-use lomotil prn diarrhea- call if symptoms do not resolve, or if any worse. Renal wphg-heiaw-faaou to [facility]rologist at [facility]-await culture 12/19/2013 Patient [...] acute infection. 12/04/2013 Appointment: Donya Lombardi WPtel: [address] [place], [place] [phone] [facility] 12/04/2013 Patient Education: Patient Medication Summary Completed [...] not improving. 11/23/2013 Appointment: Salima Carolina WPtel: [address] [place], [place] [phone] [facility] follow up 11/23/2013 Patient Education: Patient [...] negative cdiff. 10/18/2013 Appointment: Salima Carolina WPtel: [address] [place], [place] [phone] [facility] 10/18/2013 Patient Education: Patient Medication Summary Completed 10/18/2013 Visit Plan: Hypertension - well controlled - continue with current medications, continue with no added salt diet. Pt has been encouraged to exercise daily. The pt has been advised to call the office if there are any acute concerns about change in blood pressure readings at home. 08/30/2013 Appointment: Salima Carolina WPtel: [phone] [phone] Follow up 08/30/2013 Patient Education: Patient Medication [...] 50mg. 06/21/2013 Appointment: Salima Carolina WPtel: [phone] [facility] Follow up 06/21/2013 Patient Education: Patient Medication [...] acute concerns. 05/31/2013 Appointment: Salima Carolina WPtel: [facility]5 [facility] New Patient 05/31/2013 Patient Education: Patient Medication Summary Completed 05/31/2013 Patient Education: Hypertension Completed 05/31/2013 Referral: Xenia Holcomb Referral Appointment Requested Referral: [facility] WPtel: [address] [place], [place] [phone] [place] Referral Initiated Referral: Gio 08/03 Referral [...] spray in the nasal steroid allergy spray. INCREASE PROBIOTIC TO THREE TIMES DAILY . [...] today in the office for acute infection. . Sinusitis - Pt has acute infection - pain in face, maxillary region, Rocephin and Kenalog injections given in office for acute symptoms. RX sent electronically, sinus rinses also recommended. Call if symptoms do not show improvement. HOLD LOSARTAN X 2 WEEKS -MONITOR SYMPTOMS [...] of plan. Heart murmur -needs echo-will scheduled Uxcxxnfa-xikgmmh-zfglbdd to increase probiotics and monitor symptoms-will look at recents scans. . Hypertension - well controlled - continue with current medications, continue with no added salt diet. Pt has been encouraged to exercise daily. The pt has been advised to call the office if there are any acute concerns about change in blood pressure readings at home. . Hypertension - well controlled - continue with current medications, continue with no added salt diet. Pt has been encouraged to exercise daily. The pt has been advised to call the office if there are any acute concerns about change in blood pressure readings at home. Zeivlbim-hgmvgnm-EN called in for lomotil and instructed on use Hemorrhoids-RX for hydrocortisone rectal cream Generalized weakness-check labs . Diarrhea-abdominal discomfort-nausea/vomiting-Dr Carolina in to evaluate patient-plan to admit for close monitoring and further work up-plan to start IVF, check labs including stool studies and obtain a KUB. Patient verbalized understanding of plan. . Hypertension - well controlled - continue [...] situational exposure. No change in current medications. KENALOG INJECTION FLONASE NASAL [facility] LET US KNOW WHEN YOU WANT TO START PT AND WE WILL SCHEDULE IT AT [place] . Hypertension - well controlled - continue [...] us when she wants to schedule . Hypertension - well controlled - continue [...] stenosis-appt with Dr Alvarado on this week FLONASE 1 SPRAY EACH NARE DAILY REFER TO DR HLOCOMB . Hypertension - well controlled - continue [...] spray in the nasal steroid allergy spray. Prilosec (omeprazole) 20 mg daily for Gastric [...] symptoms are not improving. Parkinsons-seeing neurologist in [place] . Hypertension - uncontrolled - the patient's [...] acute concerns. Pt Started on cozaar 50mg. FLONASE 1 SPRAY EACH NARE DAILY . [...] you don't start feeling better . Allergies -g2pekd-SLD- chronic - recommended pt to use allergy [...] spray in the nasal steroid allergy spray. CONTINUE FLONASE ADD CLARITIN . Hypertension - [...] spray in the nasal steroid allergy spray. MRI lumbar spine with and without INCREASE [...] shower and will fill out handicap application. MRI lumbar spine with and without INCREASE PROBIOTICS TO TWICE DAILY I will ask Dr about a handicap placard and I will type the letter to Preeti about your apartment. . Low back pain-numbness in legs-fecal incontinence-discussed with Dr Carolina- recommend MRI lumbar spine-will do KUB today-patient has a history of a large renal cyst. Instructed patient to increase her probiotic to twice daily-call or go to ER for any worsening or new symptoms as discussed-patient verbalized understanding of plan. . Diarrhea - start on flagyl - continue with probiotic - call in one week to report on symptoms. . Hypertension - uncontrolled - the patient's [...] is to call for acute concerns. . Shingles - Herpes Zoster - acute [...] pt is to be considered contagious. . N/V/D-Dr Carolina in to evaluate patient-plan for outpatient IVF x 2 days-clear liquid/bland diet-use lomotil prn diarrhea-call if symptoms do not resolve, or if any worse. Renal jsxi-qgrme-kvioj to urologist at [facility]-await culture appt at [facility] on 08/28/14 @ 2:45pm. Hypertension [...] may also benefit from physical therapy. . Hypertension - well controlled - continue with current medications, continue with no added salt diet. Pt has been encouraged to exercise daily. The pt has been advised to call the office if there are any acute concerns about change in blood pressure readings at home. Allergies-stop claritin, try xyzal Recommend tylenol 2 tabs at bedtime for [...] with night time symptoms-call if pain uncontrolled. WILL LOOK AT ECHO-REFER TO DR ALVARADO [...] Renal cyst - pt had drained at [facility] - she will go back to Dr. Tran in 3 months - she is wondering about being evaluated by Dr. Schwartz in 3 months instead of going back to [facility]. Constipation - uncontrolled - I have discussed [...] with immodium-recommend patient stop digestive support supplement Alplrlgrc-tloaiea-wmq claritin Tinea versicolor-restart ketoconazole . Hypertension - [...]
--- OUTSIDE RECORDS SUMMARY | 2019-01-04 08:18 | XMS REPORT | CCD ---
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3 ICD-10: D22.39 Active 08/02/2018 Unknown Nonrheumatic aortic (valve) stenosis ICD-9: 424.1 ICD-10: I35.0 Active 01/12/2016 Unknown Other allergic rhinitis ICD-9: 477.8 ICD-10: J30.89 Active 07/12/2017 Unknown Overactive bladder ICD -9: 596.51 ICD-10: [...] ICD-9: 111.0 ICD-10: B36.0 Active 04/05/2017 Unknown Cough ICD-9: 786.2 ICD-10: R05 Active 10/04/2016 Unknown brain tumor Unknown Active 04/14/2016 Unknown [...] Problems Condition Codes Effective Dates Condition Status Dysphagia, oropharyngeal phase ICD-9: 787.22 ICD-10: R13.12 08/02/2018 Active Essential (primary) hypertension ICD-9: 401.9 ICD-10: I10 04/13/2016 Active 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 ICD-9: 216.3 ICD-10: D22.39 08/02/2018 Active Nonrheumatic aortic (valve) stenosis ICD-9: 424.1 ICD-10: I35.0 01/12/2016 Active Other allergic rhinitis ICD-9: 477.8 ICD-10: J30.89 07/12/2017 Active Overactive bladder ICD -9: 596.51 ICD-10: [...] versicolor ICD-9: 111.0 ICD-10: B36.0 04/05/2017 Active Cough ICD-9: 786.2 ICD-10: R05 10/04/2016 Active brain tumor Unknown 04/14/2016 Active Gastro-esophageal [...] Start Date Stop Date Status Fill Instructions Protonix 40 mg tablet,delayed release RxNorm: 876804 1 Tablet(s) PO daily 10/04/2018 11/02/2018 Active Protonix 40 mg tablet,delayed release RxNorm: 563745 1 Tablet(s) PO daily 10/04/2018 10/03/2018 Inactive amlodipine 5 mg tablet RxNorm: 309079 1 Tablet(s) PO daily 09/201804/05/2019 Active hydrochlorothiazide 25 mg tablet RxNorm: 906587 1 Tablet(s) PO daily 04/11/2018 04/05/2019 Active Myrbetriq 25 mg tablet,extended release RxNorm: 9383710 1 Tablet(s) PO QHS 12/28/2017 03/27/2018 Inactive Myrbetriq 25 mg tablet,extended release RxNorm: 6168593 1 Tablet(s) PO QHS 12/28/2017 12/27/2017 Inactive Myrbetriq 25 mg tablet,extended release RxNorm: 8104260 1 Tablet(s) PO QHS 12/21/2017 No Stop Date Active hydrocodone 10 mg-acetaminophen 325 mg tablet RxNorm: 675323 1 Tablet(s) PO Q4 PRN as needed 12/09/2017 01/07/2018 Inactive Zithromax Z-Javier 250 mg tablet RxNorm: 940659 1 Tablet(s) PO UD 10/29/2017 11/02/2017 Inactive triamcinolone acetonide 0.025 % topical cream RxNorm: 9587343 1 Application TOP BID 10/11/2017 No Stop Date Active valacyclovir 1 gram tablet RxNorm: 754362 1 Tablet(s) PO TID 10/17/2017 Inactive ketoconazole 2 % shampoo RxNorm: 138558 1 Application TOP every other day APPLY HEAD TO TOE, LEAVE ON FOR 5 MINUTES THEN RINSE, DO EVERY OTHER DAY X 2 WEEKS, MAY NEED ANOTHER 3RD 09/08/20172016 Inactive hydrochlorothiazide 25 mg tablet RxNorm: 975724 1 Tablet(s) PO daily TAKE 1 TABLET EVERY DAY 08/02/2017 04/10/2018 Inactive Xyzal 5 mg tablet RxNorm: 528289 1 Tablet(s) PO daily 201608/31/2017 Inactive Keflex 500 mg capsule RxNorm: 899634 1 Capsule(s) PO TID 201607/25/2017 Inactive Keflex 500 mg capsule RxNorm: 150245 1 Capsule(s) PO TID 201607/18/2017 Inactive Kenalog 40 mg/mL suspension for injection RxNorm: 0771525 Milliliter(s) Inj 07/12/2017 07/12/2017 Inactive Zithromax Z-Javier 250 mg tablet RxNorm: 590232 1 Tablet(s) PO UD 07/06/2017 07/10/2017 Inactive amlodipine 5 mg tablet RxNorm: 693723 1 Tablet(s) PO daily 04/10/2018 Inactive amlodipine 5 mg tablet RxNorm: 444431 1 Tablet(s) PO daily 07/01/2017 Inactive promethazine 25 mg tablet RxNorm: 643166 1 Tablet(s) PO Q6 as needed nausea 01/21/2017 No Stop Date Active Probiotic Colon Support 240 mg (3 billion cell) capsule RxNorm: 1 Capsule(s) PO daily 01/19/2017 No Stop Date Active Flagyl 500 mg tablet RxNorm: 764815 1 Tablet(s) PO TID 201601/25/2017 Inactive prednisone 20 mg tablet RxNorm: 553008 1 Tablet(s) PO BID 11/1011/14/2016 Inactive prednisone 20 mg tablet RxNorm: 819885 1 Tablet(s) PO BID 11/1011/09/2016 Inactive doxycycline hyclate 100 mg tablet RxNorm: 544107 1 Tablet(s) PO BID 11/03/2016 11/02/2016 Inactive doxycycline hyclate 100 mg tablet RxNorm: 479961 1 Tablet(s) PO BID 11/03/2016 11/09/2016 Inactive losartan 50 mg tablet RxNorm: 700021 TAKE 1 TABLET EVERY EVENING 10/27/2016 06/28/2017 Inactive escitalopram 10 mg tablet RxNorm: 833123 TAKE 1 TABLET EVERY EVENING 10/12/2016 06/13/2017 Inactive Kenalog 40 mg/mL suspension for injection RxNorm: 6556030 Milliliter(s) Inj 10/05/2016 10/05/2016 Inactive Zithromax Z-Javier 250 mg tablet RxNorm: 475603 1 Tablet(s) PO UD 07/15/2016 01/18/2017 Inactive z pack as directed amlodipine 5 mg tablet RxNorm: 332443 1 Tablet(s) TAKE 1 TABLET TWICE DAILY 06/23/2016 06/28/2017 Inactive hydrochlorothiazide 25 mg tablet RxNorm: 426602 1 Tablet(s) PO daily TAKE 1 TABLET EVERY DAY 06/23/2016 08/01/2017 Inactive Kenalog 40 mg/mL suspension for injection RxNorm: 5767597 Milliliter(s) Inj 04/14/2016 04/14/2016 Inactive omeprazole 20 mg capsule,delayed release RxNorm: 301885 1 Capsule(s) PO daily 04/14/2016 10/04/2016 Inactive losartan 50 mg tablet RxNorm: 793723 1 Tablet(s) PO QPM 201410/11/2016 Inactive amlodipine 5 mg tablet RxNorm: 927351 TAKE 1 TABLET TWICE DAILY 09/16/2015 06/11/2016 Inactive Lomotil 2.5 mg-0.025 mg tablet RxNorm: 4873952 1 Tablet(s) PO PRN take 1 tab after each loose stool max of 8 tabs per day 08/16/2015 01/12/2016 Inactive one after each loose bm. limit 8 per day hydrocortisone 2.5 % rectal cream RxNorm: 783887 1 Application RTL BID PRN 08/09/2015 10/07/2015 Inactive hydrochlorothiazide 25 mg tablet RxNorm: 252758 1 Tablet(s) PO daily TAKE 1 TABLET EVERY DAY 07/02/2015 06/22/2016 Inactive escitalopram 10 mg tablet RxNorm: 826799 1 Tablet(s) PO QPM 11/201403/27/2016 Inactive amlodipine 5 mg tablet RxNorm: 029253 1 Tablet(s) PO BID 201409/15/2015 Inactive Kenalog 40 mg/mL suspension for injection RxNorm: 9235683 Milliliter(s) Inj 02/14/2015 02/14/2015 Inactive [SAVINGS FOR NON-COVERED DRUGS -- BIN:624603, PCN: ASPROD1, Group: XXXXX, ID# [id number], Questions: . THIS IS NOT INSURANCE.] Flonase Allergy Relief 50 mcg/actuation nasal spray, suspension RxNorm: 2 [place] NASAL daily 02/14/2015 04/14/2015 Inactive [SAVINGS FOR NON-COVERED DRUGS -- BIN:628908, PCN: ASPROD1, Group: XXXXX, ID# [id number], Questions: [phone]. THIS IS NOT INSURANCE.] cefdinir 300 mg capsule RxNorm: 891437 1 Capsule(s) PO BID 02/20/2015 Inactive [SAVINGS FOR NON-COVERED DRUGS -- BIN:437825, PCN: ASPROD1, Group: XXXXX, ID# [id number], Questions: . THIS IS NOT INSURANCE.] ceftriaxone 500 mg solution for injection RxNorm: 6655611 Inj 02/14/2015 02/14/2015 Inactive [SAVINGS FOR NON-COVERED DRUGS -- BIN:381971, PCN: ASPROD1, Group: XXXXX, ID# [id number], Questions: . THIS IS NOT INSURANCE.] hydrochlorothiazide 25 mg tablet RxNorm: 924098 TAKE 1 TABLET EVERY DAY 11/06/2014 07/01/2015 Inactive hydrochlorothiazide 25 mg tablet RxNorm: 156081 1/2 Tablet(s) PO daily 11/06/2014 11/05/2014 Inactive [SAVINGS FOR UNINSURED PATIENTS -- BIN:658551, PCN: ASPROD1, Group: [id number], ID# [id number], Process claim through [employer], for questions: [phone]. THIS IS NOT INSURANCE.] escitalopram 10 mg tablet RxNorm: 149448 1 Tablet(s) PO QPM 07/01/2015 Inactive hydrochlorothiazide 25 mg tablet RxNorm: 019627 1/2 Tablet(s) PO daily 10/22/2014 11/05/2014 Inactive losartan 50 mg tablet RxNorm: 510087 1 Tablet(s) PO QPM 201308/16/2015 Inactive amlodipine 5 mg tablet RxNorm: 202951 1 Tablet(s) PO BID 201307/01/2015 Inactive escitalopram 10 mg tablet RxNorm: 683235 1 Tablet(s) PO QPM 08/21/2014 Inactive escitalopram 10 mg tablet RxNorm: 133022 1 Tablet(s) PO QPM 10/21/2014 Inactive Probiotic Colon Support 240 mg (3 billion cell) capsule RxNorm: 1 Capsule(s) PO BID 02/21/2014 02/15/2015 Inactive Lomotil 2.5 mg-0.025 mg tablet RxNorm: 6303909 1 Tablet(s) PO take 1 tab after each loose stool max of 8 tabs per day 12/22/2013 08/15/2015 Inactive one after each loose bm. limit 8 per day nitrofurantoin 100 mg capsule RxNorm: 521726 1/2 Tablet(s) PO BID 12/22/2013 12/28/2013 Inactive nitrofurantoin 100 mg capsule RxNorm: 236362 1/2 Tablet(s) PO BID 12/22/2013 12/21/2013 Inactive Zofran 4 mg tablet RxNorm: 825217 1 Tablet(s) PO Q6 PRN 12/20 No Stop Date Active Reglan 5 mg tablet RxNorm: 069533 1 Tablet(s) PO BID 201301/17/2014 Inactive potassium chloride ER 10 mEq tablet,extended release RxNorm: 077775 1 Tablet(s) PO daily 12/05/2013 01/12/2016 Inactive Zofran 4 mg tablet RxNorm: 708125 1 Tablet(s) PO Q6 PRN 12/0512/04/2013 Inactive Zofran 4 mg tablet RxNorm: 628655 1 Tablet(s) PO Q6 PRN 12/0512/19/2013 Inactive Rocephin 500 mg solution for injection RxNorm: 901888 1 Milliliter(s) Inj 12/04/2013 12/04/2013 Inactive Bactrim DS 800 mg-160 mg tablet RxNorm: 663848 1 Tablet(s) PO BID 12/04/2013 12/10/2013 Inactive Fish Oil 360 mg-1,200 mg capsule,delayed release RxNorm: 1 Capsule(s) PO daily 11/23/2013 01/12/2016 Inactive Calcium Antacid Ultra Max St 400 mg (1,000 mg) chewable tablet RxNorm: 553489 1 Tablet(s) PO TID 11/23/2013 01/12/2016 Inactive Probiotic Complex 100 mg-500 mg-50 mg capsule RxNorm: 936674 1 Capsule(s) PO BID 11/23/2013 10/22/2014 Inactive metronidazole 500 mg tablet RxNorm: 634751 1 Tablet(s) PO TID 10/26/2013 11/04/2013 Inactive metronidazole 500 mg tablet RxNorm: 472059 1 Tablet(s) PO TID 10/18/2013 10/25/2013 Inactive hydrochlorothiazide 25 mg tablet RxNorm: 367488 1 Tablet(s) PO daily 10/11/2013 10/05/2014 Inactive amlodipine 5 mg tablet RxNorm: 289318 1 Tablet(s) PO BID 201208/21/2014 Inactive losartan 50 mg tablet RxNorm: 840513 1 Tablet(s) PO QPM 201208/21/2014 Inactive hydrochlorothiazide 25 mg tablet RxNorm: 812367 1 Tablet(s) PO daily 07/25/2013 10/10/2013 Inactive hydrochlorothiazide 25 mg tablet RxNorm: 224295 1 Tablet(s) PO daily 06/21/2013 07/24/2013 Inactive losartan 50 mg tablet RxNorm: 313766 1 Tablet(s) PO QPM 201210/10/2013 Inactive ketoconazole 2 % Shampoo RxNorm: 098167 1 Application TOP every other day APPLY HEAD TO TOE, LEAVE ON FOR 5 MINUTES THEN RINSE, DO EVERY OTHER DAY X 2 WEEKS, MAY NEED ANOTHER 3RD 05/31/20132012 Inactive multivitamin capsule RxNorm: 1 Capsule(s) PO No Start Date Active aspirin 81 mg tablet RxNorm: 055680 1 Tablet(s) PO daily No Start Date Active Lutein Vison Formula oral RxNorm: 69850 oral No Start Date Active magnesium 200 mg tablet RxNorm: 1 Tablet(s) PO BID No Start Date Active Fish Oil 360 mg-1,200 mg capsule RxNorm: 737696 1 Capsule(s) PO BID No Start Date Active Vitamin D3 2,000 unit capsule RxNorm: 985189 1 Capsule(s) PO daily No Start Date Active melatonin 5 mg tablet RxNorm: 314187 1 Tablet(s) PO QHS No Start Date Active ubiquinone oral RxNorm : 60644 oral No Start Date Active Vitamin B-12 5,000 mcg/mL sublingual drops RxNorm: 5323088 1 Milliliter(s) SL daily No Start Date Active promethazine 25 mg tablet RxNorm: 051394 1 Tablet(s) PO Q6 as needed nausea No Start Date 01/20/2017 Inactive Lomotil 2.5 mg-0.025 mg tablet RxNorm: 2757125 1 Tablet(s) PO No Start Date 12/21/2013 Inactive one after each loose bm. limit 8 per day potassium 99 mg tablet RxNorm: 1 Tablet(s) PO daily No Start Date 02/20/2014 Inactive potassium chloride ER 10 mEq tablet,extended release RxNorm: 927662 1 Tablet(s) PO daily No Start Date 12/04/2013 Inactive promethazine 25 mg tablet RxNorm: 108715 1 Tablet(s) PO Q6 PRN No Start Date 10/22/2014 Inactive krill 500 mg-omega-3 150 mg-dha 45 mg-epa 75 mg-phospho- astax capsule RxNorm: 1 Capsule(s) PO daily No Start Date 2016 Inactive Zithromax Z-Javier oral RxNorm: oral No Start Date 07/05/2017 Inactive potassium chloride ER 20 mEq tablet,extended release(part/ cryst) RxNorm: 202122 oral No Start Date 12/04/2013 Inactive PreserVision AREDS 2 250 mg-2.5 mg-0.5 mg capsule RxNorm: 1 Capsule(s) PO BID No Start Date 01/12/2016 Inactive thyroid Oral RxNorm: Oral No Start Date Inactive Zithromax Z-Javier 250 mg tablet RxNorm: 787143 1 Tablet(s) PO UD No Start Date 07/14/2016 Inactive z pack as directed Fish Oil 360 mg-1,200 mg capsule,delayed release RxNorm: Oral No Start Date 11/22/2013 Inactive Probiotic Complex 100 mg-500 mg-50 mg capsule RxNorm: 000292 1 Capsule(s) PO daily No Start Date 11/22/2013 Inactive Super B [id number] tablet RxNorm: 1 Tablet(s) PO daily No Start Date 01/18/2017 Inactive Calcium Antacid Ultra Max St 400 mg (1,000 mg) chewable tablet RxNorm: 715264 1 PO No Start Date 11/22/2013 Inactive hydrochlorothiazide 25 mg tablet RxNorm: 872384 2 Tablet(s) PO daily No Start Date 06/20/2013 Inactive amlodipine 5 mg tablet RxNorm: 873137 1 Tablet(s) PO BID No Start Date 10/10/2013 Inactive Vitamin D3 2,000 unit capsule RxNorm: 814999 1 Capsule(s) PO daily No Start Date 01/12/2016 Inactive Medication Administered Medication Codes Instructions Start Date Status Kenalog 40 mg/mL suspension for injection RxNorm: 3505451 Milliliter 07/12/2017 No longer Active Kenalog 40 mg/mL suspension for injection RxNorm: 9722866 Milliliter 10/05/2016 No longer Active Kenalog 40 mg/mL suspension for injection RxNorm: 1449990 Milliliter 04/14/2016 No longer Active ceftriaxone 500 mg solution for injection RxNorm: 3920926 02/14/2015 No longer Active Kenalog 40 mg/mL suspension for injection RxNorm: 4289787 Milliliter 02/14/2015 No longer Active Rocephin 500 mg solution for injection RxNorm: 925208 1Milliliter 12/04/2013 No longer Active Immunizations Vaccine Codes Date Status Influenza CVX: 141 08/24/2013 completed Assessments Condition Codes Effective Dates 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 ICD-10: D22.39 ICD-9: 216.3 08/02/2018 Essential (primary) hypertension ICD-10: I10 ICD-9: 401.9 08/02/2018 Dysphagia, oropharyngeal phase ICD-10: R13.12 ICD-9: 787.22 08/02/2018 Other allergic rhinitis ICD-10: J30.89 ICD-9: 477.8 04/08/2018 Overactive bladder ICD-10: N32.81 ICD-9: 596.51 12/21/2017 [...] to pollen ICD-10: J30.1 ICD-9: 477.0 04/05/2017 Cough ICD-10: R05 ICD-9: 786.2 10/05/2016 Parkinson's disease ICD-10: G20 ICD-9: 332.0 04/14/2016 [...] Visit Reason For Visit Effective Dates Notes hypertension 08/02/2018 hypertension 04/08/2018 earache 01/31/2018 hypertension [...] Item Item Code Result Date Comp Metabolic Sht512 NA 132 mEq/L 01/10/2018 Comp Metabolic Xvl712 K 3.5 mEq/L 01/10/2018 Comp Metabolic Kef714 CL 91 mEq/L 01/10/2018 Comp Metabolic Afp577 CO2 34.0 mEq/L 01/10/2018 Comp Metabolic Tsc687 ANION GAP 11 01/10/2018 Comp Metabolic Uii169 GLUCOSE 150 mg/dL 01/10/2018 Comp Metabolic Kut819 Creat 0.8 mg/dL 01/10/2018 Comp Metabolic Shf699 eGFR 74 ml/min/1.73m2 01/10/2018 Comp Metabolic Utj323 BUN 16 mg/dL 01/10/2018 Comp Metabolic Fko549 B/C Ratio 20.3 Ratio 01/10/2018 Comp Metabolic Aqs040 CALCIUM 9.8 mg/dL 01/10/2018 Comp Metabolic Tmm764 ALK PHOS 117 U/L 01/10/2018 Comp Metabolic Mzd482 AST(SGOT) 12 U/L 01/10/2018 Comp Metabolic Hml461 ALT(SGPT) 11 U/L 01/10/2018 Comp Metabolic Fki268 BILI T 1.1 mg/dL 01/10/2018 Comp Metabolic Lit656 ALBUMIN 4.4 g/dL 01/10/2018 Comp Metabolic Uhu585 TPRO 6.5 g/dL 01/10/2018 Comp Metabolic Bem489 GLOB 2.1 g/dL 01/10/2018 Comp Metabolic Nnk736 A/G Ratio 2.1 Ratio 01/10/2018 Comp Metabolic Ibk923 Osmo 269 mOsmo 01/10/2018 Cbc With Differential [...] 25.2 pg 01/10/2018 Cbc With Differential Ord2 [place]% 8.6 % 01/10/2018 Cbc With Differential Ord2 [...] 1.54 K/ul 01/10/2018 Cbc With Differential Ord2 [place] ABS# 0.7 K/ul 01/10/2018 Cbc With Differential Ord2 Eos ABS# 0.3 K/ul 01/10/2018 Cbc With Differential Ord2 Baso ABS# 0.0 K/ul 01/10/2018 Tsh Ord6 hTSH II 1.10 uIU/mL 04/05/2017 Comp Metabolic Yop925 NA 138 mEq/L 04/05/2017 Comp Metabolic Buq199 K 3.8 mEq/L 04/05/2017 Comp Metabolic Dkp249 CL 98 mEq/L 04/05/2017 Comp Metabolic Gnm045 CO2 31.0 mEq/L 04/05/2017 Comp Metabolic Lcq081 ANION GAP 13 04/05/2017 Comp Metabolic Hor529 GLUCOSE 83 mg/dL 04/05/2017 Comp Metabolic Ukh983 Creat 0.9 mg/dL 04/05/2017 Comp Metabolic Onz298 eGFR 64 ml/min/1.73m2 04/05/2017 Comp Metabolic Jxs066 BUN 11 mg/dL 04/05/2017 Comp Metabolic Fuu021 B/C Ratio 12.2 Ratio 04/05/2017 Comp Metabolic Wor921 CALCIUM 8.9 mg/dL 04/05/2017 Comp Metabolic Yfc917 ALK PHOS 58 U/L 04/05/2017 Comp Metabolic Jxb059 AST(SGOT) 15 U/L 04/05/2017 Comp Metabolic Kdh044 ALT(SGPT) 14 U/L 04/05/2017 Comp Metabolic Lae898 BILI T 0.9 mg/dL 04/05/2017 Comp Metabolic Hjq578 ALBUMIN 4.1 g/dL 04/05/2017 Comp Metabolic Vyw270 TPRO 6.2 g/dL 04/05/2017 Comp Metabolic Oeg155 GLOB 2.2 g/dL 04/05/2017 Comp Metabolic Uso989 A/G Ratio 1.9 Ratio 04/05/2017 Comp Metabolic Bbf936 Osmo 274 mOsmo 04/05/2017 Cbc With Differential [...] 21.2 % 04/05/2017 Cbc With Differential Ord2 [place]% 8.3 % 04/05/2017 Cbc With Differential Ord2 [...] 1.28 K/ul 04/05/2017 Cbc With Differential Ord2 [place] ABS# 0.5 K/ul 04/05/2017 Cbc With Differential [...] Ord15 CALCIUM 9.3 mg/dL 08/27/2016 Comp Metabolic Ajh623 NA 138 mEq/L 10/11/2015 Comp Metabolic Xix659 K 3.8 mEq/L 10/11/2015 Comp Metabolic Alz819 CL 98 mEq/L 10/11/2015 Comp Metabolic Qte152 CO2 29.0 mEq/L 10/11/2015 Comp Metabolic Ktv471 ANION GAP 15 10/11/2015 Comp Metabolic Lfu665 GLUCOSE 76 mg/dL 10/11/2015 Comp Metabolic Puz669 Creat 0.9 mg/dL 10/11/2015 Comp Metabolic Xrn244 eGFR 68 ml/min/1.73m2 10/11/2015 Comp Metabolic Iua262 BUN 14 mg/dL 10/11/2015 Comp Metabolic Lnp697 B/C Ratio 16.3 Ratio 10/11/2015 Comp Metabolic Brw719 CALCIUM 9.7 mg/dL 10/11/2015 Comp Metabolic Fxu381 ALK PHOS 73 U/L 10/11/2015 Comp Metabolic Xbi995 AST(SGOT) 16 U/L 10/11/2015 Comp Metabolic Vve291 ALT(SGPT) 14 U/L 10/11/2015 Comp Metabolic Tjh899 BILI T 0.8 mg/dL 10/11/2015 Comp Metabolic Zsq174 ALBUMIN 4.6 g/dL 10/11/2015 Comp Metabolic Zzl795 TPRO 7.1 g/dL 10/11/2015 Comp Metabolic Kvl412 GLOB 2.5 g/dL 10/11/2015 Comp Metabolic Xfh701 A/G Ratio 1.8 Ratio 10/11/2015 Comp Metabolic Hut859 Osmo 275 mOsmo 10/11/2015 Cbc With Differential [...] hTSH II 1.70 uIU/mL 10/11/2015 Comp Metabolic Blw150 NA 130 mEq/L 08/09/2015 Comp Metabolic Dyu548 K 3.6 mEq/L 08/09/2015 Comp Metabolic Ivr761 CL 94 mEq/L 08/09/2015 Comp Metabolic Ipc956 CO2 30.0 mEq/L 08/09/2015 Comp Metabolic Vmd897 ANION GAP 10 08/09/2015 Comp Metabolic Bpc767 GLUCOSE 156 mg/dL 08/09/2015 Comp Metabolic Qnx776 Creat 0.9 mg/dL 08/09/2015 Comp Metabolic Cpf614 eGFR 67 ml/min/1.73m2 08/09/2015 Comp Metabolic Vgy066 BUN 23 mg/dL 08/09/2015 Comp Metabolic Oqt659 B/C Ratio 26.4 Ratio 08/09/2015 Comp Metabolic Rhd980 CALCIUM 9.6 mg/dL 08/09/2015 Comp Metabolic Sjy748 ALK PHOS 95 U/L 08/09/2015 Comp Metabolic Bpj376 AST(SGOT) 12 U/L 08/09/2015 Comp Metabolic Ycq546 ALT(SGPT) 12 U/L 08/09/2015 Comp Metabolic Vch429 BILI T 0.7 mg/dL 08/09/2015 Comp Metabolic Zri774 ALBUMIN 4.1 g/dL 08/09/2015 Comp Metabolic Hhz370 TPRO 6.4 g/dL 08/09/2015 Comp Metabolic Hyy314 GLOB 2.3 g/dL 08/09/2015 Comp Metabolic Njh319 A/G Ratio 1.8 Ratio 08/09/2015 Comp Metabolic Zbj772 Osmo 268 mOsmo 08/09/2015 Cbc With Differential [...] Ord2 RDW 14.0 % 08/09/2015 CHEM 14 8166793 AST 14 U/L 12/25/2013 CHEM 14 1276921 ALT 17 IU/L 12/25/2013 CHEM 14 4954616 BUN 8 MG/DL 12/25/2013 CHEM 14 5794335 ALBUMIN 4.1 GM/DL 12/25/2013 CHEM 14 5869468 CHLORIDE 98 MMOL/L 12/25/2013 CHEM 14 7978673 BILI TOT 0.9 MG/DL 12/25/2013 CHEM 14 8202223 ALK PHOS 55 U/L 12/25/2013 CHEM 14 8121287 SODIUM 133 MMOL/L 12/25/2013 CHEM 14 8533468 CREATININE 0.86 MG/DL 12/25/2013 CHEM 14 0192159 CALCIUM 9.2 MG/DL 12/25/2013 CHEM 14 5602290 POTASSIUM 3.9 MMOL/L 12/25/2013 CHEM 14 5035604 PROT TOT 6.1 GM/DL 12/25/2013 CHEM 14 0141754 GLUCOSE 95 MG/DL 12/25/2013 CHEM 14 2162617 BICARB 29 MMOL/L 12/25/2013 CHEM 14 8663325 ANION GAP 6 MEQ/L 12/25/2013 GFR CALC 0073954 GFR AA >60 ML/MIN 12/25/2013 GFR CALC 4518315 GFR NON-AA >60 ML/MIN 12/25/2013 LIPASE 9348475 LIPASE 17 IU/L 12/05/2013 AMYLASE 7847975 AMYLASE 49 IU/L 12/05/2013 CHEM 14 7542513 AST 16 U/L 12/04/2013 CHEM 14 9701599 ALT 14 IU/L 12/04/2013 CHEM 14 4636983 BUN 18 MG/DL 12/04/2013 CHEM 14 8529481 ALBUMIN 4.6 GM/DL 12/04/2013 CHEM 14 0462181 CHLORIDE 99 MMOL/L 12/04/2013 CHEM 14 9881092 BILI TOT 1.5 MG/DL 12/04/2013 CHEM 14 7552235 ALK PHOS 60 U/L 12/04/2013 CHEM 14 2243167 SODIUM 134 MMOL/L 12/04/2013 CHEM 14 0851850 CREATININE 0.92 MG/DL 12/04/2013 CHEM 14 4745723 CALCIUM 9.7 MG/DL 12/04/2013 CHEM 14 6877715 POTASSIUM 3.4 MMOL/L 12/04/2013 CHEM 14 8801197 PROT TOT 6.9 GM/DL 12/04/2013 CHEM 14 3195782 GLUCOSE 105 MG/DL 12/04/2013 CHEM 14 8981886 BICARB 27 MMOL/L 12/04/2013 CHEM 14 9442482 ANION GAP 8 MEQ/L 12/04/2013 GFR CALC 6890207 GFR AA >60 ML/MIN 12/04/2013 GFR CALC 7886051 GFR NON-AA 59.0L ML/MIN 12/04/2013 URINALYSIS NONAUTO W/O SCOPE 23078 Specific [place] 1.015 DateTime(Free Text in Aprima) URINALYSIS NONAUTO W/O SCOPE 68836 PH 6.0 DateTime(Free Text in Aprima) URINALYSIS NONAUTO W/O SCOPE 00486 GLUCOSE neg DateTime( Free Text in Aprima) URINALYSIS NONAUTO W/O SCOPE 29049 Protein neg DateTime( Free Text in Aprima) URINALYSIS NONAUTO W/O SCOPE 21481 Blood neg DateTime(Free Text in Aprima) URINALYSIS NONAUTO W/O SCOPE 55404 Bilirubin neg DateTime(Free Text in Aprima) URINALYSIS NONAUTO W/O SCOPE 17400 Ketones neg DateTime( Free Text in Aprima) URINALYSIS NONAUTO W/O SCOPE 97914 Urobilinogen neg DateTime(Free Text in Aprima) URINALYSIS NONAUTO W/O SCOPE 44515 Nitrite 2+ DateTime( Free Text in Aprima) URINALYSIS NONAUTO W/O SCOPE 79300 Leukocytes DateTime( Free Text in Apr) Review of Systems System Result Effective Dates Constitutional No recent illness 2017 Constitutional No [...] 1994 Eyes conjunctiva /eyelids Overall: eyelids normal 04/08/2018 None Full Exam - General 1994 Ears/Nose/Throat lips/teeth/gingiva Overall: benign lips 04/08/2018 None Full Exam - General 1994 Ears/Nose/Throat oral cavity/pharynx/larynx Overall: oral mucosa clear 04/08/2018 None Full Exam - General 1994 Respiratory auscultation Overall: breath sounds clear bilaterally 04/08/2018 None Full Exam - General 1994 Respiratory respiratory effort/rhythm Overall: no retractions 04/08/2018 None Full Exam - General 1994 Respiratory respiratory effort/rhythm Overall: normal rate 04/08/2018 [...] rate 12/03/2017 None Full Exam - General 1994 Cardiovascular auscultation of heart Overall: regular rate 12/03/2017 None Full Exam - General 1994 Cardiovascular auscultation of heart Overall: normal heart sounds 12/03/2017 None Full Exam - General 1994 Cardiovascular auscultation of heart Murmur: previously known murmur unchanged 12/03/2017 None Full Exam - General 1994 Cardiovascular auscultation of heart Systolic murmur: midsystolic 12/03/2017 None Full Exam - General 1994 Cardiovascular auscultation of heart Systolic murmur grade: III/ 12/03/2017 None Full Exam - General 1994 Abdomen abdominal exam Overall: no tenderness 12/03/2017 None Full Exam - General 1994 Abdomen abdominal exam Overall: normal bowel sounds 12/03/2017 None Full Exam - General 1994 Neurologic cranial nerves Overall: crainial nerves 2 - 12 grossly intact 12/03/2017 None Full Exam - General 1994 Psychiatric orientation/consciousness Overall: oriented to person, place and time 12/03/2017 None Full Exam - General 1994 Psychiatric mood and affect Overall: normal mood and affect 12/03/2017 None Full Exam - General 1994 Psychiatric mood and affect Mood: happy 12/03/2017 None Full Exam - General 1994 Eyes conjunctiva /eyelids Overall: conjunctiva clear 12/03/2017 None Full Exam - General 1994 Eyes conjunctiva /eyelids Overall: cornea clear 12/03/2017 [...] accomodation 04/24/2015 None Full Exam - General 1994 Lymphatic neck nodes Overall: anterior cervical chain benign 04/24/2015 None Full Exam - General 1994 Lymphatic neck nodes Overall: posterior cervical chain [...] masses 11/23/2013 None Full Exam - General 1994 [...] developed 10/31/2013 None Full Exam - General 1994 Ears/Nose/Throat oral cavity/pharynx/larynx Overall: oral mucosa clear 10/31/2013 None Full Exam - General 1994 Ears/Nose/Throat oral cavity/pharynx/larynx Overall: oropharyngeal mucosa clear 10/31/2013 None Full Exam - General 1994 Ears/Nose/Throat oral cavity/pharynx/larynx Overall: no masses 10/31/2013 [...] nourished 10/18/2013 None Full Exam - General 1995 Ears/Nose/Throat oral cavity/pharynx/larynx Overall: oral mucosa clear 10/18/2013 None Full Exam - General 1995 Ears/Nose/Throat oral cavity/pharynx/larynx Overall: oropharyngeal mucosa clear 10/18/2013 None Full Exam - General 1995 Ears/Nose/Throat oral cavity/pharynx/larynx Overall: no masses 10/18/2013 [...] developed 08/30/2013 None Full Exam - General 1994 Constitutional general appearance Overall: in no acute distress 08/30/2013 None Full Exam - General 1994 Constitutional general appearance Overall: well nourished 08/30/2013 None Full Exam - General 1994 Ears/Nose/Throat oral cavity/pharynx/larynx Overall: oral mucosa clear 08/30/2013 None Full Exam - General 1995 Ears/Nose/Throat oral cavity/pharynx/larynx Overall: oropharyngeal mucosa clear 08/30/2013 None Full Exam - General 1995 Ears/Nose/Throat oral cavity/pharynx/larynx Overall: no masses 08/30/2013 None Full Exam - General 1995 Respiratory auscultation Overall: breath sounds clear bilaterally 08/30/2013 None Full Exam - General 1994 Respiratory respiratory effort/rhythm Overall: no retractions 08/30/2013 None Full Exam - General 1995 Respiratory respiratory effort/rhythm Overall: normal rate 08/30/2013 None Full Exam - General 1995 Cardiovascular [...] distress 06/21/2013 None Full Exam - General 1994 Ears/Nose/Throat oral cavity/pharynx/larynx Overall: oropharyngeal mucosa clear 06/21/2013 None Full Exam - General 1994 Ears/Nose/Throat oral cavity/pharynx/larynx Overall: no masses 06/21/2013 None Full Exam - General 1994 Ears/Nose/Throat oral cavity/pharynx/larynx Overall: oral mucosa clear 06/21/2013 None Full Exam - General 1994 Respiratory respiratory effort/rhythm Overall: normal rate 06/21/2013 None Full Exam - General 1994 Respiratory respiratory effort/rhythm Overall: no retractions 06/21/2013 None Full Exam - General 1994 Respiratory auscultation Overall: breath sounds clear bilaterally 06/21/2013 None Full Exam - General 1995 Cardiovascular auscultation of heart Overall: regular rate 06/21/2013 None Full Exam - General 1995 Cardiovascular auscultation of heart Overall: normal heart sounds 06/21/2013 None Full Exam - General 1995 Cardiovascular auscultation of heart Overall: no murmurs 06/21/2013 None Full Exam - General 1995 Neurologic cranial nerves Overall: crainial nerves 2 - 12 grossly intact 06/21/2013 None Full Exam - General 1995 Psychiatric orientation/consciousness Overall: oriented to person, place and time 06/21/2013 None Full Exam - General 1995 Psychiatric mood and affect Mood: happy 06/21/2013 None Full Exam - General 1995 Psychiatric mood and affect Overall: normal mood and affect 06/21/2013 None Full Exam - General 1995 [...] masses 05/31/2013 None Procedures Procedure Codes Date PRESCRIP TRANSMIT VIA ERX SY CPT-4: G8553 10/11/2017 PPPS, SUBSEQ VISIT CPT -4: G0439 08/03/2017 PRESCRIP TRANSMIT VIA ERX SY CPT-4: G8553 08/02/2017 THER/PROPH/DIAG INJ SC/IM CPT-4: 51538 07/12/2017 TRIAMCINOLONE ACET INJ NOS CPT-4: J3301 07/12/2017 PRESCRIP TRANSMIT VIA ERX SY CPT-4: G8553 01/19/2017 TRIAMCINOLONE ACET INJ NOS CPT-4: J3301 10/05/2016 TRIAMCINOLONE ACET INJ NOS CPT-4: J3301 04/14/2016 THER/PROPH/DIAG INJ SC/IM CPT-4: 60822 04/14/2016 THER/PROPH/DIAG INJ SC/IM CPT-4: 29758 02/14/2015 TRIAMCINOLONE ACET INJ NOS CPT-4: J3301 02/14/2015 ROCEPHIN, PER 250 MG CPT-4: J0696 02/14/2015 ROUTINE VENIPUNCTURE CPT-4: 79751 12/25/2013 URINALYSIS NONAUTO W/O SCOPE CPT-4: 41436 12/04/2013 ROUTINE VENIPUNCTURE CPT-4: 05765 12/04/2013 ROCEPHIN, PER 250 MG CPT-4: J0696 12/04/2013 THER/PROPH/DIAG INJ SC/IM CPT-4: 60172 12/04/2013 PRESCRIP TRANSMIT VIA ERX SY CPT-4: G8553 10/18/2013 PRESCRIP TRANSMIT VIA ERX SY CPT-4: G8553 06/21/2013 PRESCRIP TRANSMIT VIA ERX SY CPT-4: G8553 05/31/2013 Vital Signs Date Vital 08/02/2018 Blood Pressure 1: 132/64 Code : 8480-6 BMI: 25.5 Code : 09680-9 Heart Rate 1 : 87 bpm Height: 5'3" SpO2: 98% Weight: 144 lbs 04/08/2018 Blood Pressure 1: 138/78 Code : 8480-6 BMI: 25.2 Code : 48281-0 Heart Rate 1 : 89 bpm Height: 5'3" SpO2: 96% Weight: 142 lbs 01/31/2018 Blood Pressure 1: 142/64 Code : 8480-6 BMI: 25.2 Code : 12313-4 Heart Rate 1 : 88 bpm Height: [...] Code : 8480-6 BMI: 26.6 Code : 43212-4 Heart Rate 1 : 94 bpm Height: 5'3" SpO2: 98% Weight: 150 lbs 08/03/2017 Blood Pressure 1: 132/76 Code : 8480-6 BMI: 25.2 Code : 23093-8 Heart Rate 1 : 89 bpm Height: 5'3" SpO2: 97% Waist Measure (cm): 79 cm Weight: 142 lbs 08/02/2017 Blood Pressure 1: 140/58 Code : 8480-6 BMI: 25.2 Code : 18909-5 Heart Rate 1 : 61 bpm Height: 5'3" SpO2: 95% Weight: 142 lbs 07/12/2017 Blood Pressure 1: 126/60 Code : 8480-6 BMI: 25.9 Code : 38453-5 Heart Rate 1 : 84 bpm Height: 5'3" SpO2: 95% Weight: 146 lbs 06/29/2017 Blood Pressure 1: 140/76 Code : 8480-6 Blood Pressure 1: 132/70 Code: 8480-6 BMI: 25.7 Code: 47854-7 Heart Rate 1: 88 bpm Height: 5'3" SpO2: 97% Weight: 145 lbs 06/14/2017 Blood Pressure 1: 122/62 Code : 8480-6 BMI: 25.7 Code : 68252-7 Heart Rate 1 : 80 bpm Height: 5'3" SpO2: 96% Weight: 145 lbs 04/05/2017 Blood Pressure 1: 138/70 Code : 8480-6 BMI: 25.7 Code : 70064-2 Heart Rate 1 : 76 bpm Height: 5'3" SpO2: 96% Weight: 145 lbs 01/19/2017 Blood Pressure 1: 130/60 Code : 8480-6 BMI: 26.9 Code : 66424-7 Heart Rate 1 : 81 bpm Height: 5'3" SpO2: 96% Weight: 153 lbs 10/05/2016 Blood Pressure 1: 128/86 Code : 8480-6 BMI: 27.5 Code : 00334-7 Heart Rate 1 : 78 bpm Height: 5'3" SpO2: 94% Weight: 156 lbs 04/14/2016 Blood Pressure 1: 140/72 Code : 8480-6 BMI: 26.8 Code : 88250-6 Heart Rate 1 : 78 bpm Height: 5'3" SpO2: 94% Weight: 152 lbs 01/13/2016 Blood Pressure 1: 128/68 Code : 8480-6 BMI: 26.4 Code : 60477-6 Heart Rate 1 : 84 bpm Height: 5'3" SpO2: 91% Weight: 150 lbs 10/11/2015 Blood Pressure 1: 138/68 Code : 8480-6 BMI: 26.1 Code : 54591-2 Height: 5'3" Weight: 148 lbs 08/09/2015 Blood Pressure 1: 140/62 Code : 8480-6 BMI: 25.2 Code : 18234-2 Heart Rate 1 : 86 bpm Height: 5'3" SpO2: 97% Weight: 143 lbs 05/24/2015 Blood Pressure 1: 132/68 Code : 8480-6 BMI: 26.1 Code : 01517-0 Heart Rate 1 : 79 bpm Height: 5'3" SpO2: 96% Weight: 148 lbs 04/24/2015 Blood Pressure 1: 168/70 Code : 8480-6 BMI: 26.4 Code : 14393-4 Heart Rate 1 : 75 bpm Height: 5'3" SpO2: 97% Weight: 150 lbs 02/14/2015 Blood Pressure 1: 124/64 Code : 8480-6 BMI: 25.5 Code : 50565-2 Heart Rate 1 : 87 bpm Height: 5'3" SpO2: 97% Temperature: 37.6 (C) / 99.7 (F) Weight: 145 lbs 10/22/2014 Blood Pressure 1: 142/74 Code : 8480-6 Heart Rate 1: 72 bpm Weight: 148 lbs 08/22/2014 Blood Pressure 1: 132/72 Code : 8480-6 BMI: 25.9 Code : 70502-2 Heart Rate 1 : 78 bpm Height: 5'3" Weight: 147 lbs 02/21/2014 Blood Pressure 1: 124/62 Code : 8480-6 BMI: 24.3 Code : 47991-7 Heart Rate 1 : 64 bpm Height: 5'3" Weight: 138 lbs 12/19/2013 Blood Pressure 1: 124/62 Code : 8480-6 Heart Rate 1: 84 bpm SpO2: 98% Weight: 139 lbs 12/04/2013 Blood Pressure 1: 142/64 Code : 8480-6 Heart Rate 1: 88 bpm Temperature: 36.6 (C) / 97.8 (F) Weight: 139 lbs 11/23/2013 Blood Pressure 1: 126/68 Code : 8480-6 BMI: 24.0 Code : 10391-2 Heart Rate 1 : 76 bpm Height: [...] Code : 8480-6 BMI: 25.3 Code : 21692-5 Heart Rate 1 : 84 bpm Height: 5'4" Weight: 150 lbs 06/21/2013 Blood Pressure 1: 140/70 Code : 8480-6 Blood Pressure 2: 148/73 Code: 8480-6 BMI: 25.0 Code: 93360-2 Heart Rate 1: 78 bpm Height: 5'4" Weight: 148 lbs 05/31/2013 Blood Pressure 1: 156/92 Code : 8480-6 BMI: 25.0 Code : 90543-4 Heart Rate 1 : 80 bpm Height: 5'4" Weight: 148 lbs Functional Status No Functional Status data History of Present Illness Symptom Name Status Result Effective Date Notes hypertension Quality chronic 08/02/2018 None hypertension Quality [...] Present Encounters Encounter Performer Location Codes Date ([id number]) 35908 EST. PATIENT, LEVEL IV Diagnosis: Essential (primary) hypertension[ICD10: I10] Diagnosis: Dysphagia, oropharyngeal phase[ICD10: R13.12] Diagnosis: 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[ICD10: D22.39] Donya Carolina MD, [facility] CPT-4: 85195 08/02/2018 ([id number]) 75077 EST. PATIENT, LEVEL III Diagnosis: Essential (primary) hypertension[ICD10: I10] Diagnosis: Other allergic rhinitis[ICD10: J30.89] [facility] CPT-4: 91049 04/08/2018 ([id number]) 72903 EST. PATIENT, LEVEL III Diagnosis: Essential (primary) hypertension[ICD10: I10] Diagnosis: Other allergic rhinitis[ICD10: J30.89] Donya Carolina MD, [facility] CPT-4: 21586 01/31/2018 ([id number]) 29936 EST. PATIENT, LEVEL III Diagnosis: Essential (primary) hypertension[ICD10: I10] Diagnosis: Other allergic rhinitis[ICD10: J30.89] Donya Carolina MD, [facility] CPT-4: 62956 01/10/2018 18471 EST. PATIENT, LEVEL IV Diagnosis: Overactive bladder[ICD10: N32.81] Piper Carolina MD, [facility] CPT -4: 25664 12/21/2017 09407 EST. PATIENT, LEVEL III Diagnosis: Other muscle spasm[ICD10: M62.838] Diagnosis: Pain in left hip[ICD10: M25.552] Diagnosis: Dysuria[ICD10: R30.0] Diagnosis: Weakness[ICD10: R53.1] Diagnosis: Unsteadiness on feet[ICD10: R26.81] Piper Carolina MD, [facility] CPT-4: 87452 12/03/2017 17155 EST. PATIENT, LEVEL III Diagnosis: Zoster without complications[ICD10: B02.9] Piper Carolina MD, [facility] CPT-4: 62959 10/11/2017 ([id number]) 45705 EST. PATIENT, LEVEL IV Diagnosis: Essential (primary) hypertension[ICD10: I10] Diagnosis: Nonrheumatic aortic (valve) stenosis[ICD10: I35.0] Diagnosis: Other allergic rhinitis[ICD10: J30.89] Donya Carolina MD, [facility] CPT-4: 39635 08/02/2017 31266 EST. PATIENT, LEVEL IV Diagnosis: Other acute sinusitis[ICD10: J01.80] Diagnosis: Other allergic rhinitis[ICD10: J30.89] Diagnosis: Wheezing[ICD10: R06.2] Piper Carolina MD, [facility] CPT-4: 17576 07/12/2017 ([id number]) 62149 EST. PATIENT, LEVEL IV Diagnosis: Nonrheumatic aortic (valve) stenosis[ICD10: I35.0] Diagnosis: Essential (primary) hypertension[ICD10: I10] Donya Carolina MD, [facility] CPT-4: 07398 06/29/2017 ([id number]) 51522 EST. PATIENT, LEVEL IV Diagnosis: Essential (primary) hypertension[ICD10: I10] Diagnosis: Functional diarrhea[ICD10: K59.1] Diagnosis: Nausea[ICD10: R11.0] Donya Carolina MD, [facility] CPT-4: 99912 06/14/2017 [id number] 80436 EST. 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 PATIENT, LEVEL III Diagnosis: Allergic rhinitis due to pollen[ICD10: J30.1] Diagnosis: Cough[ICD10: R05] Donya Carolina MD, [facility] CPT-4: 89961 10/05/2016 ([id number]) 79491 EST. PATIENT, LEVEL IV Diagnosis: Essential (primary) hypertension[ICD10: I10] Diagnosis: Gastro-esophageal reflux disease without esophagitis[ICD10: K21.9] Diagnosis: Allergic rhinitis due to pollen[ICD10: J30.1] Diagnosis: Parkinson's disease[ICD10: G20] Donya Carolina MD, [facility] CPT-4: 35602 04/14/2016 ([id number]) 19184 EST. PATIENT, LEVEL IV Diagnosis: Essential (primary) hypertension[ICD10: I10] Diagnosis: Nonrheumatic aortic (valve) stenosis[ICD10: I35.0] Diagnosis: Allergic rhinitis, unspecified[ICD10: J30.9] Donya Carolina MD, [facility] CPT-4: 69731 01/13/2016 ([id number]) 68419 EST. 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 PATIENT, LEVEL IV Diagnosis: Essential (primary) hypertension[ICD10: I10] Diagnosis: Other specified noninfective gastroenteritis and colitis[ICD10: K52.89] Diagnosis: Unspecified hemorrhoids[ICD10: K64.9] Donya Carolina MD, [facility] CPT-4: 33460 08/09/2015 ([id number]) 98889 EST. PATIENT, LEVEL IV Diagnosis: Lumbar back pain[ICD9: 724.2] Diagnosis: Fecal incontinence[ICD9: 787.60] Diagnosis: Numbness of legs[ICD9: 782.0] Diagnosis: Diarrhea[ICD9: 787.91] Salima Carolina MD, [facility] CPT-4: 12735 05/24/2015 ([id number]) 00125 EST. PATIENT, LEVEL IV Diagnosis: ESSENTIAL HYPERTENSION[ICD9: 401.9] Diagnosis: DEPRESSIVE DISORDER NEC[ICD9: 311] Salima Carolina MD, [facility] CPT-4: 99241 04/24/2015 ([id number]) 83689 EST. PATIENT, LEVEL III Diagnosis: ACUTE SINUSITIS[ICD9: 461.9] Diagnosis: COUGH[ICD9: 786.2] Donya Carolina MD, [facility] CPT-4: 04880 02/14/2015 ([id number]) 78582 EST. PATIENT, LEVEL IV Diagnosis: ESSENTIAL HYPERTENSION[ICD9: 401.9] Diagnosis: Depression[ICD9: 311] Diagnosis: Hip pain[ICD9: 719.45] Salima Carolina MD, [facility] CPT-4: 39223 10/22/2014 ([id number]) 13512 EST. PATIENT, LEVEL IV Diagnosis: ESSENTIAL HYPERTENSION[ICD9: 401.9] Diagnosis: Hip pain[ICD9: 719.45] Diagnosis: Depression[ICD9: 311] Salima Carolina MD, [facility] CPT-4: 55077 08/22/2014 ([id number]) 67604 EST. PATIENT, LEVEL IV Diagnosis: ESSENTIAL HYPERTENSION[SNOMED: 20630414] Diagnosis: Renal cyst[ICD9: 753.10] Diagnosis: Constipation - functional[ICD9: 564.09] Salima Carolina MD [facility] CPT-4: 40100 02/21/2014 ([id number]) 99142 EST. PATIENT, LEVEL III Diagnosis: Nausea and vomiting[ICD9: 787.01] Diagnosis: Diarrhea[ICD9: 787.91] Diagnosis: Renal cyst[ICD9: 753.10] Diagnosis: UTI[ICD9: 599.0] Salima Carolina MD [facility] CPT-4: 52095 12/19/2013 ([id number]) 30382 EST. PATIENT, LEVEL III Diagnosis: Diarrhea[ICD9: 787.91] Diagnosis: Nausea and vomiting[ICD9: 787.01] Diagnosis: UTI[ICD9: 599.0] Donya Carolina MD [facility] CPT-4: 88863 12/04/2013 ([id number]) 45362 EST. PATIENT, LEVEL III Diagnosis: ESSENTIAL HYPERTENSION[SNOMED: 79610499] Diagnosis: Abdominal pain[ICD9: 789.00] Salima Carolina MD [facility] CPT- 4: 83046 11/23/2013 ([id number]) Patient admitted to the hospital from clinic (NO CHARGE) Diagnosis: Diarrhea[ICD9: 787.91] Diagnosis: Abdominal discomfort[ICD9: 789.00] Diagnosis: Nausea and vomiting[ICD9: 787.01] Salima Carolina MD [facility] CPT-4: 73017U 10/31/2013 ([id number]) 57928 EST. PATIENT, LEVEL III Diagnosis: Diarrhea[ICD9: 787.91] Salima Carolina MD [facility] CPT-4: 58728 10/18/2013 ([id number]) 82693 EST. PATIENT, LEVEL III Diagnosis: ESSENTIAL HYPERTENSION[SNOMED: 74505972] Salima Carolina MD [facility] CPT-4: 56453 08/30/2013 ([id number]) 20537 EST. PATIENT, LEVEL III Diagnosis: ESSENTIAL HYPERTENSION[SNOMED: 92573363] [facility] CPT-4: 28169 06/21/2013 ([id number]) 13652 EST. PATIENT, LEVEL III Diagnosis: ESSENTIAL HYPERTENSION[SNOMED: 66416649] [facility] CPT-4: 03287 05/31/2013 Plan of Care Planned Activity Notes Codes Status Date Appointment: Donya Lombardi WPtel: [facility]3 [phone] (15 min) Moderate 08/19/2018 Visit Plan: Hypertension [...] him until 08/02/2018 Appointment: Donya Lombardi WPtel: [facility]1 [phone] (15 min) Moderate 08/02/2018 Patient Education: Patient Medication Summary Completed 08/02/2018 Patient Education: Hypertension Completed 08/02/2018 Care Plan: Referral Order SNOMED-CT : 905489813 Pending 08/02/2018 Visit Plan: Hypertension - well controlled - continue with current medications, continue with no added salt diet. Pt has been encouraged to exercise daily. The pt has been advised to call the office if there are any acute concerns about change in blood pressure readings at home. Allergies-stop claritin, try xyzal 04/08/2018 Appointment: Donya Lombardi WPtel: [facility]3 [phone] (15 min) Moderate 04/08/2018 Patient Education: Patient [...] allergy spray. 01/31/2018 Appointment: Donya Lombardi WPtel: [address] [place], [place] [phone] (30 min) Complex 01/31/2018 Patient Education: Patient Medication Summary Completed 01/31/2018 Appointment: Salima Carolina WPtel: [address] [place], [place] [phone] (15 min) Moderate 01/19/2018 Visit Plan: Hypertension [...] allergy spray. 01/10/2018 Appointment: Donya Lombardi WPtel: [facility]6 [phone] (15 min) Moderate 01/10/2018 Patient Education: Patient [...] or concerns. 12/21/2017 Appointment: Piper Salazar WPtel: [address] [place] [address] (30 min) Complex 12/21/2017 Patient Education: Patient [...] as indicated. 12/03/2017 Appointment: Piper Salazar WPtel: [address] [place] [address] (30 min) Complex 12/03/2017 Patient Education: Patient [...] considered contagious. 10/11/2017 Appointment: [phone] [place] (30 min) Complex 10/11/2017 Patient Education: Patient [...] care surrogate. 08/03/2017 Appointment: Donya Lombardi WPtel: [phone] [phone] [facility] - Annual Wellness Visit 08/03/2017 [...] this week 08/02/2017 Appointment: Donya Lombardi WPtel: [phone] [phone] (30 min) Complex 08/02/2017 Patient Education: Patient [...] allergy spray. 07/12/2017 Appointment: Piper Salazar [phone] [place] (15 min) Moderate 07/12/2017 Patient Education: Patient [...] management 06/29/2017 Appointment: [facility] Lombardi [phone] [phone] (30 min) Complex 06/29/2017 Patient Education: Patient Medication Summary Completed 06/29/2017 Patient Education: Hypertension Completed 06/29/2017 Care Plan: Referral Order SNOMED-CT : 914634693 Pending 06/29/2017 Visit Plan: Hypertension - well [...] with immodium-recommend patient stop digestive support supplement Fjohwhtzh-ftylxwn-mql claritin Tinea versicolor-restart ketoconazole 04/05/2017 Appointment: Donya Lombardi WPtel: [facility]3 [phone] (30 min) Complex 04/05/2017 Patient Education: Patient Medication Summary Completed 04/05/2017 Visit Plan: Diarrhea - start on flagyl - continue with probiotic - call in one week to report on symptoms. 01/19/2017 Appointment: Salima Carolina WPtel: [phone] [facility] (15 min) Moderate 01/19/2017 Patient Education: Patient Medication Summary Completed 01/19/2017 Visit Plan: Allergies -e2nrkn-WSG- chronic - recommended pt to use allergy [...] allergy spray. 10/05/2016 Appointment: Donya Lombardi WPtel: [phone] (30 min) Complex 10/05/2016 Patient Education: Patient Medication Summary Completed 10/05/2016 Appointment: Donya Lombardi WPtel: [address] [place] [phone] (30 min) Complex 05/18/2016 Visit Plan: Hypertension [...] symptoms are not improving. Parkinsons-seeing neurologist in [place] 04/14/2016 Patient Education: Patient Medication Summary Completed [...] 01/13/2016 Care Plan: Referral Order SNOMED-CT : 687547665 Ordered 01/13/2016 Visit Plan: Hypertension - well [...] medications. 04/24/2015 [facility]ment[phone] [facility] 04/24/2015 Patient Education: Patient Medication Summary Completed 04/24/2015 Patient Education: Hypertension Completed 04/24/2015 Care Plan: COMPLETE CBC AUTOMATED LOINC : 97395-9 Ordered 04/24/2015 Visit Plan: Sinusitis - Pt [...] Follow up 10/22/2014 Appointment: [phone] [facility] 10/22/2014 Patient Education: Patient [...] physical therapy. 08/22/2014 App[facility]ment: [phone] [facility] 08/22/2014 Patient Education: Patient Medication Summary Completed 08/22/2014 Patient Education: Hypertension Completed 08/22/2014 Care Plan: Referral Order SNOMED-CT : 392529982 Ordered 08/22/2014 Visit Plan: Hypertension - well controlled - continue with current medications, continue with no added salt diet. Pt has been encouraged to exercise daily. The pt has been advised to call the office if there are any acute concerns about change in blood pressure readings at home. Renal cyst - pt had drained at [facility] - she will go back to Dr. Tran in 3 months - she is wondering about being evaluated by Dr. Schwartz in 3 months instead of going back to [facility]. Constipation - uncontrolled - I have discussed [...] this regimen. 02/21/2014 Appointment: [phone] [facility] 02/21/2014 Patient Education: Patient Medication Summary Completed 02/21/2014 Patient Education: Hypertension Completed 02/21/2014 Patient Education: Patient Medication Summary Completed 12/25/2013 Visit Plan: N/V/D-Dr Carolina in to evaluate patient-plan for outpatient IVF x 2 days-clear liquid/bland diet-use lomotil prn diarrhea- call if symptoms do not resolve, or if any worse. Renal mwnm-euypo-uyhul to urologist at [facility]-await culture 12/19/2013 Patient [...] acute infection. 12/04/2013 Appointment: Donya Lombardi WPtel: [facility]6 [facility] [place] [address] 12/04/2013 Patient Education: Patient Medication Summary Completed [...] not improving. 11/23/2013 Appointment: Salima Carolina WPtel: [facility]0 [facility] [place] [address] follow up 11/23/2013 Patient Education: Patient Medication [...] negative cdiff. 10/18/2013 Appointment: Salima Carolina WPtel: [phone] [facility] [facility] 10/18/2013 Patient Education: Patient Medication Summary Completed 10/18/2013 Visit Plan: Hypertension - well controlled - continue with current medications, continue with no added salt diet. Pt has been encouraged to exercise daily. The pt has been advised to call the office if there are any acute concerns about change in blood pressure readings at home. 08/30/2013 Appointment: Salima Carolina WPtel: [phone] [facility] Follow up 08/30/2013 Patient Education: Patient Medication [...] cozaar 50mg. 06/21/2013 Appointment: Salima Carolina WPtel: [phone] [facility] Follow up 06/21/2013 Patient Education: Patient Medication [...] acute concerns. 05/31/2013 Appointment: [facility] [place] [phone] [facility] 05/31/2013 Patient Education: Patient Medication Summary Completed 05/31/2013 Patient Education: Hypertension Completed 05/31/2013 Referral: Xenia Holcomb Referral Appointment Requested Referral: [facility] WPtel: [address] [place], [place] [address] Referral Initiated Referral: Gio 08/03 Referral info [...] of plan. Heart murmur -needs echo-will scheduled Iogszouz-ozqdvru-uxiggyl to increase probiotics and monitor symptoms-will look [...] change in blood pressure readings at home. Mwvmwyzq-rwozcfs-XY called in for lomotil and instructed on [...] symptoms are not improving. Parkinsons-seeing neurologist in [place] . Hypertension - uncontrolled - the patient's [...] you don't start feeling better . Allergies -n6lwel-WNT- chronic - recommended pt to use allergy [...] not resolve, or if any worse. Renal eqkr-gjcia-pvdjm to urologist at [facility]-await culture appt [facility] on 08/28/14 @ 2:45pm. Hypertension [...] Renal cyst - pt had drained at [facility] - she will go back to Dr. Tran in 3 months - she is wondering about being evaluated by Dr. Scwhartz in 3 months instead of going back to [facility]. Constipation - uncontrolled - I have discussed [...] with immodium-recommend patient stop digestive support supplement Bbbgjovpo-lfecrnk-irl claritin Tinea versicolor-restart ketoconazole . Hypertension - [...]
--- NOTE | 2019-01-04 08:22 | Progress Note-Pre Operative ---
Pre-Operative Progress Note H&P Reviewed The H&P was reviewed, patient examined and no changes noted. Date Seen by Provider: Dec 22, 2018 Time Seen by Provider: 11:00 Date H&P Reviewed: Jan 04, 2019 Time H&P Reviewed: 08:22 Pre-Operative Diagnosis: Skin lesion-left cheeck FIDEL RAMIREZ MD Jan 04, 2019 08:22
--- OUTSIDE RECORDS SUMMARY | 2019-01-04 08:22 | XMS REPORT | CCD ---
Author Author Salima Carolina Organization Salima Carolina MD, [facility] Address [address] [place] [address] Phone Care Team Providers Care Animal Health Technician Name Role Phone PP Unavailable CCM Unavailable Summary Purpose Interface Exchange Insurance Providers Payer name Policy type / Coverage type Covered republican ID Effective Begin Date Effective End Date WPS Medicare Part B Medicare Part B [id number] Unknown Unknown AETNA Medicare Part B [id number] Unknown Unknown Family history Father Diagnosis Age At [...] [address] in [place]./ Retired Nov 2013 08/22/2014 Marital status Unknown 05/31/[address]: 4039532 Quit over 10 years ago 05/31/[address]: 900654534 Never drinks alcohol 05/31/2013 Has the patient ever used illegal drugs? Unknown Has never used illegal drugs 05/31/2013 Allergies, Adverse Reactions, Alerts Allergies, Adverse Reactions, Alerts data not found Past Medical History Illness Codes Condition Status Onset Date Resolved Date Dysuria ICD-9: 788.1 ICD-10: R30.0 Active 12/03/2017 Unknown Other muscle spasm ICD -9: 728.85 ICD-10: M62.838 Active 12/03/2017 Unknown Pain in left hip ICD-9 : 719.45 ICD-10: M25.552 Active 12/03/2017 Unknown Zoster without complications ICD-9: 053.9 ICD-10: B02.9 Active 10/11/2017 Unknown Encounter for general adult medical examination with abnormal findings ICD-9: V70.0 ICD-10: Z00.01 Active 08/03/2017 Unknown Essential (primary) hypertension ICD-9: 401.9 ICD-10: I10 Active 04/13/2016 Unknown Nonrheumatic aortic (valve) stenosis ICD-9: 424.1 ICD-10: I35.0 Active 01/12/2016 Unknown Other allergic rhinitis ICD-9: 477.8 ICD-10: J30.89 Active 07/12/2017 Unknown Other acute sinusitis ICD-9: 461.8 ICD-10: [...] Problems Condition Codes Effective Dates Condition Status Dysuria ICD-9: 788.1 ICD-10: R30.0 12/03/2017 Active Other muscle spasm ICD -9: 728.85 ICD-10: M62.838 12/03/2017 Active Pain in left hip ICD-9 : 719.45 ICD-10: M25.552 12/03/2017 Active Zoster without complications ICD-9: 053.9 ICD-10: B02.9 10/11/2017 Active Encounter for general adult medical examination with abnormal findings ICD-9: V70.0 ICD-10: Z00.01 08/03/2017 Active Essential (primary) hypertension ICD-9: 401.9 ICD-10: I10 04/13/2016 Active Nonrheumatic aortic (valve) stenosis ICD-9: 424.1 ICD-10: I35.0 01/12/2016 Active Other allergic rhinitis ICD-9: 477.8 ICD-10: J30.89 07/12/2017 Active Other acute sinusitis ICD-9: 461.8 ICD-10: [...] Start Date Stop Date Status Fill Instructions Zithromax Z-Javier 250 mg tablet RxNorm: 212185 1 Tablet(s) PO UD 10/29/2017 11/02/2017 Inactive triamcinolone acetonide 0.025 % topical cream RxNorm: 1540246 1 Application TOP BID 10/11/2017 No Stop Date Active valacyclovir 1 gram tablet RxNorm: 691585 1 Tablet(s) PO TID 10/17/2017 Inactive ketoconazole 2 % shampoo RxNorm: 450161 1 Application TOP every other day APPLY HEAD TO TOE, LEAVE ON FOR 5 MINUTES THEN RINSE, DO EVERY OTHER DAY X 2 WEEKS, MAY NEED ANOTHER 3RD 09/08/20172016 Inactive hydrochlorothiazide 25 mg tablet RxNorm: 421851 1 Tablet(s) PO daily TAKE 1 TABLET EVERY DAY 08/02/2017 10/25/2018 Active Xyzal 5 mg tablet RxNorm: 756905 1 Tablet(s) PO daily 201608/31/2017 Inactive Keflex 500 mg capsule RxNorm: 533943 1 Capsule(s) PO TID 201607/25/2017 Inactive Keflex 500 mg capsule RxNorm: 553543 1 Capsule(s) PO TID 201607/18/2017 Inactive Kenalog 40 mg/mL suspension for injection RxNorm: 9909795 Milliliter(s) Inj 07/12/2017 07/12/2017 Inactive Zithromax Z-Javier 250 mg tablet RxNorm: 415517 1 Tablet(s) PO UD 07/06/2017 07/10/2017 Inactive amlodipine 5 mg tablet RxNorm: 119836 1 Tablet(s) PO daily 09/23/2018 Active amlodipine 5 mg tablet RxNorm: 649987 1 Tablet(s) PO daily 07/01/2017 Inactive promethazine 25 mg tablet RxNorm: 677687 1 Tablet(s) PO Q6 as needed nausea 01/21/2017 No Stop Date Active Probiotic Colon Support 240 mg (3 billion cell) capsule RxNorm: 1 Capsule(s) PO daily 01/19/2017 No Stop Date Active Flagyl 500 mg tablet RxNorm: 915093 1 Tablet(s) PO TID 201601/25/2017 Inactive prednisone 20 mg tablet RxNorm: 402480 1 Tablet(s) PO BID 11/1011/14/2016 Inactive prednisone 20 mg tablet RxNorm: 117930 1 Tablet(s) PO BID 11/1011/09/2016 Inactive doxycycline hyclate 100 mg tablet RxNorm: 889768 1 Tablet(s) PO BID 11/03/2016 11/02/2016 Inactive doxycycline hyclate 100 mg tablet RxNorm: 500474 1 Tablet(s) PO BID 11/03/2016 11/09/2016 Inactive losartan 50 mg tablet RxNorm: 256577 TAKE 1 TABLET EVERY EVENING 10/27/2016 06/28/2017 Inactive escitalopram 10 mg tablet RxNorm: 167749 TAKE 1 TABLET EVERY EVENING 10/12/2016 06/13/2017 Inactive Kenalog 40 mg/mL suspension for injection RxNorm: 1276864 Milliliter(s) Inj 10/05/2016 10/05/2016 Inactive Zithromax Z-Javier 250 mg tablet RxNorm: 949585 1 Tablet(s) PO UD 07/15/2016 01/18/2017 Inactive z pack as directed amlodipine 5 mg tablet RxNorm: 910756 1 Tablet(s) TAKE 1 TABLET TWICE DAILY 06/23/2016 06/28/2017 Inactive hydrochlorothiazide 25 mg tablet RxNorm: 717293 1 Tablet(s) PO daily TAKE 1 TABLET EVERY DAY 06/23/2016 08/01/2017 Inactive Kenalog 40 mg/mL suspension for injection RxNorm: 8236720 Milliliter(s) Inj 04/14/2016 04/14/2016 Inactive omeprazole 20 mg capsule,delayed release RxNorm: 497702 1 Capsule(s) PO daily 04/14/2016 10/04/2016 Inactive losartan 50 mg tablet RxNorm: 358597 1 Tablet(s) PO QPM 201410/11/2016 Inactive amlodipine 5 mg tablet RxNorm: 971047 TAKE 1 TABLET TWICE DAILY 09/16/2015 06/11/2016 Inactive Lomotil 2.5 mg-0.025 mg tablet RxNorm: 8108523 1 Tablet(s) PO PRN take 1 tab after each loose stool max of 8 tabs per day 08/16/2015 01/12/2016 Inactive one after each loose bm. limit 8 per day hydrocortisone 2.5 % rectal cream RxNorm: 010178 1 Application RTL BID PRN 08/09/2015 10/07/2015 Inactive hydrochlorothiazide 25 mg tablet RxNorm: 759770 1 Tablet(s) PO daily TAKE 1 TABLET EVERY DAY 07/02/2015 06/22/2016 Inactive escitalopram 10 mg tablet RxNorm: 421090 1 Tablet(s) PO QPM 11/201403/27/2016 Inactive amlodipine 5 mg tablet RxNorm: 463299 1 Tablet(s) PO BID 201409/15/2015 Inactive Kenalog 40 mg/mL suspension for injection RxNorm: 4674428 Milliliter(s) Inj 02/14/2015 02/14/2015 Inactive [SAVINGS FOR NON-COVERED DRUGS -- BIN:422061, PCN: ASPROD1, Group: XXXXX, ID# [id number], Questions: . THIS IS NOT INSURANCE.] Flonase Allergy Relief 50 mcg/actuation nasal spray, suspension RxNorm: 2 [place] NASAL daily 02/14/2015 04/14/2015 Inactive [SAVINGS FOR NON-COVERED DRUGS -- BIN:718301, PCN: ASPROD1, Group: XXXXX, ID# [id number], Questions: [phone]. THIS IS NOT INSURANCE.] cefdinir 300 mg capsule RxNorm: 618337 1 Capsule(s) PO BID 02/20/2015 Inactive [SAVINGS FOR NON-COVERED DRUGS -- BIN:737503, PCN: ASPROD1, Group: XXXXX, ID# [id number], Questions: . THIS IS NOT INSURANCE.] ceftriaxone 500 mg solution for injection RxNorm: 8931979 Inj 02/14/2015 02/14/2015 Inactive [SAVINGS FOR NON-COVERED DRUGS -- BIN:970283, PCN: ASPROD1, Group: XXXXX, ID# [id number], Questions: . THIS IS NOT INSURANCE.] hydrochlorothiazide 25 mg tablet RxNorm: 757535 TAKE 1 TABLET EVERY DAY 11/06/2014 07/01/2015 Inactive hydrochlorothiazide 25 mg tablet RxNorm: 329371 1/2 Tablet(s) PO daily 11/06/2014 11/05/2014 Inactive [SAVINGS FOR UNINSURED PATIENTS -- BIN:593428, PCN: ASPROD1, Group: [id number], ID# [id number], Process claim through [employer], for questions: [phone]. THIS IS NOT INSURANCE.] escitalopram 10 mg tablet RxNorm: 658299 1 Tablet(s) PO QPM 07/01/2015 Inactive hydrochlorothiazide 25 mg tablet RxNorm: 018347 1/2 Tablet(s) PO daily 10/22/2014 11/05/2014 Inactive losartan 50 mg tablet RxNorm: 603596 1 Tablet(s) PO QPM 201308/16/2015 Inactive amlodipine 5 mg tablet RxNorm: 469354 1 Tablet(s) PO BID 201307/01/2015 Inactive escitalopram 10 mg tablet RxNorm: 536773 1 Tablet(s) PO QPM 08/21/2014 Inactive escitalopram 10 mg tablet RxNorm: 053780 1 Tablet(s) PO QPM 10/21/2014 Inactive Probiotic Colon Support 240 mg (3 billion cell) capsule RxNorm: 1 Capsule(s) PO BID 02/21/2014 02/15/2015 Inactive Lomotil 2.5 mg-0.025 mg tablet RxNorm: 1235909 1 Tablet(s) PO take 1 tab after each loose stool max of 8 tabs per day 12/22/2013 08/15/2015 Inactive one after each loose bm. limit 8 per day nitrofurantoin 100 mg capsule RxNorm: 641472 1/2 Tablet(s) PO BID 12/22/2013 12/28/2013 Inactive nitrofurantoin 100 mg capsule RxNorm: 622641 1/2 Tablet(s) PO BID 12/22/2013 12/21/2013 Inactive Zofran 4 mg tablet RxNorm: 082126 1 Tablet(s) PO Q6 PRN 12/20 No Stop Date Active Reglan 5 mg tablet RxNorm: 422827 1 Tablet(s) PO BID 201301/17/2014 Inactive potassium chloride ER 10 mEq tablet,extended release RxNorm: 662864 1 Tablet(s) PO daily 12/05/2013 01/12/2016 Inactive Zofran 4 mg tablet RxNorm: 378105 1 Tablet(s) PO Q6 PRN 12/0512/04/2013 Inactive Zofran 4 mg tablet RxNorm: 795521 1 Tablet(s) PO Q6 PRN 12/0512/19/2013 Inactive Rocephin 500 mg solution for injection RxNorm: 498307 1 Milliliter(s) Inj 12/04/2013 12/04/2013 Inactive Bactrim DS 800 mg-160 mg tablet RxNorm: 501021 1 Tablet(s) PO BID 12/04/2013 12/10/2013 Inactive Fish Oil 360 mg-1,200 mg capsule,delayed release RxNorm: 1 Capsule(s) PO daily 11/23/2013 01/12/2016 Inactive Calcium Antacid Ultra Max St 400 mg (1,000 mg) chewable tablet RxNorm: 285000 1 Tablet(s) PO TID 11/23/2013 01/12/2016 Inactive Probiotic Complex 100 mg-500 mg-50 mg capsule RxNorm: 178452 1 Capsule(s) PO BID 11/23/2013 10/22/2014 Inactive metronidazole 500 mg tablet RxNorm: 160897 1 Tablet(s) PO TID 10/26/2013 11/04/2013 Inactive metronidazole 500 mg tablet RxNorm: 554033 1 Tablet(s) PO TID 10/18/2013 10/25/2013 Inactive hydrochlorothiazide 25 mg tablet RxNorm: 595122 1 Tablet(s) PO daily 10/11/2013 10/05/2014 Inactive amlodipine 5 mg tablet RxNorm: 259085 1 Tablet(s) PO BID 201208/21/2014 Inactive losartan 50 mg tablet RxNorm: 772870 1 Tablet(s) PO QPM 201208/21/2014 Inactive hydrochlorothiazide 25 mg tablet RxNorm: 765125 1 Tablet(s) PO daily 07/25/2013 10/10/2013 Inactive hydrochlorothiazide 25 mg tablet RxNorm: 520297 1 Tablet(s) PO daily 06/21/2013 07/24/2013 Inactive losartan 50 mg tablet RxNorm: 194196 1 Tablet(s) PO QPM 201210/10/2013 Inactive ketoconazole 2 % Shampoo RxNorm: 838613 1 Application TOP every other day APPLY HEAD TO TOE, LEAVE ON FOR 5 MINUTES THEN RINSE, DO EVERY OTHER DAY X 2 WEEKS, MAY NEED ANOTHER 3RD 05/31/20132012 Inactive multivitamin capsule RxNorm: 1 Capsule(s) PO No Start Date Active aspirin 81 mg tablet RxNorm: 567972 1 Tablet(s) PO daily No Start Date Active Lutein Vison Formula oral RxNorm: 67972 oral No Start Date Active magnesium 200 mg tablet RxNorm: 1 Tablet(s) PO BID No Start Date Active Fish Oil 360 mg-1,200 mg capsule RxNorm: 839593 1 Capsule(s) PO BID No Start Date Active Vitamin D3 2,000 unit capsule RxNorm: 529715 1 Capsule(s) PO daily No Start Date Active melatonin 5 mg tablet RxNorm: 740370 1 Tablet(s) PO QHS No Start Date Active ubiquinone oral RxNorm : 30834 oral No Start Date Active Vitamin B-12 5,000 mcg/mL sublingual drops RxNorm: 8511734 1 Milliliter(s) SL daily No Start Date Active promethazine 25 mg tablet RxNorm: 283269 1 Tablet(s) PO Q6 as needed nausea No Start Date 01/20/2017 Inactive Lomotil 2.5 mg-0.025 mg tablet RxNorm: 6642163 1 Tablet(s) PO No Start Date 12/21/2013 Inactive one after each loose bm. limit 8 per day potassium 99 mg tablet RxNorm: 1 Tablet(s) PO daily No Start Date 02/20/2014 Inactive potassium chloride ER 10 mEq tablet,extended release RxNorm: 502450 1 Tablet(s) PO daily No Start Date 12/04/2013 Inactive promethazine 25 mg tablet RxNorm: 236152 1 Tablet(s) PO Q6 PRN No Start Date 10/22/2014 Inactive krill 500 mg-omega-3 150 mg-dha 45 mg-epa 75 mg-phospho- astax capsule RxNorm: 1 Capsule(s) PO daily No Start Date 2016 Inactive Zithromax Z-Javier oral RxNorm: oral No Start Date 07/05/2017 Inactive potassium chloride ER 20 mEq tablet,extended release(part/ cryst) RxNorm: 883440 oral No Start Date 12/04/2013 Inactive PreserVision AREDS 2 250 mg-2.5 mg-0.5 mg capsule RxNorm: 1 Capsule(s) PO BID No Start Date 01/12/2016 Inactive thyroid Oral RxNorm: Oral No Start Date Inactive Zithromax Z-Javier 250 mg tablet RxNorm: 209486 1 Tablet(s) PO UD No Start Date 07/14/2016 Inactive z pack as directed Fish Oil 360 mg-1,200 mg capsule,delayed release RxNorm: Oral No Start Date 11/22/2013 Inactive Probiotic Complex 100 mg-500 mg-50 mg capsule RxNorm: 751752 1 Capsule(s) PO daily No Start Date 11/22/2013 Inactive Super B [id number]-[id number] tablet RxNorm: 1 Tablet(s) PO daily No Start Date 01/18/2017 Inactive Calcium Antacid Ultra Max St 400 mg (1,000 mg) chewable tablet RxNorm: 675200 1 PO No Start Date 11/22/2013 Inactive hydrochlorothiazide 25 mg tablet RxNorm: 227744 2 Tablet(s) PO daily No Start Date 06/20/2013 Inactive amlodipine 5 mg tablet RxNorm: 731776 1 Tablet(s) PO BID No Start Date 10/10/2013 Inactive Vitamin D3 2,000 unit capsule RxNorm: 957338 1 Capsule(s) PO daily No Start Date 01/12/2016 Inactive Medication Administered Medication Codes Instructions Start Date Status Kenalog 40 mg/mL suspension for injection RxNorm: 9895084 Milliliter 07/12/2017 No longer Active Kenalog 40 mg/mL suspension for injection RxNorm: 1879757 Milliliter 10/05/2016 No longer Active Kenalog 40 mg/mL suspension for injection RxNorm: 5815527 Milliliter 04/14/2016 No longer Active Kenalog 40 mg/mL suspension for injection RxNorm: 3659187 Milliliter 02/14/2015 No longer Active ceftriaxone 500 mg solution for injection RxNorm: 4807993 02/14/2015 No longer Active Rocephin 500 mg solution for injection RxNorm: 571018 1Milliliter 12/04/2013 No longer Active Immunizations Vaccine Codes Date Status Influenza CVX: 141 08/24/2013 completed Assessments Condition Codes Effective Dates Dysuria ICD-10: R30.0 ICD-9: 788.1 12/03/2017 Pain in left hip ICD-10: M25.552 ICD-9: 719.45 12/03/2017 Other muscle spasm ICD-10: M62.838 ICD-9: 728.85 12/03/2017 Zoster without complications ICD-10: B02.9 ICD-9: 053.9 10/11/2017 Encounter for general adult medical examination with abnormal findings ICD-10: Z00.01 ICD-9: V70.0 08/03/2017 Nonrheumatic aortic (valve) stenosis ICD-10: I35.0 ICD-9: 424.1 08/02/2017 Other allergic rhinitis ICD-10: J30.89 ICD-9: 477.8 08/02/2017 Essential (primary) hypertension ICD-10: I10 ICD-9: 401.9 08/02/2017 Wheezing ICD-10: R06.2 ICD-9: 786.07 07/12/2017 [...] Visit Reason For Visit Effective Dates Notes hip pain 12/03/2017 rash 10/11/2017 Annual Medicare [...] Observation Code Item Item Code Result Date Tsh Ord6 hTSH II 1.10 uIU/mL 04/05/2017 Comp Metabolic Ksc949 NA 138 mEq/L 04/05/2017 Comp Metabolic Fru819 K 3.8 mEq/L 04/05/2017 Comp Metabolic Dxe872 CL 98 mEq/L 04/05/2017 Comp Metabolic Fnb071 CO2 31.0 mEq/L 04/05/2017 Comp Metabolic Mau184 ANION GAP 13 04/05/2017 Comp Metabolic Vvm223 GLUCOSE 83 mg/dL 04/05/2017 Comp Metabolic Zax953 Creat 0.9 mg/dL 04/05/2017 Comp Metabolic Pjv018 eGFR 64 ml/min/1.73m2 04/05/2017 Comp Metabolic Dje361 BUN 11 mg/dL 04/05/2017 Comp Metabolic Lpz144 B/C Ratio 12.2 Ratio 04/05/2017 Comp Metabolic Tzb518 CALCIUM 8.9 mg/dL 04/05/2017 Comp Metabolic Uam432 ALK PHOS 58 U/L 04/05/2017 Comp Metabolic Zxo913 AST(SGOT) 15 U/L 04/05/2017 Comp Metabolic Aeh872 ALT(SGPT) 14 U/L 04/05/2017 Comp Metabolic Iqj815 BILI T 0.9 mg/dL 04/05/2017 Comp Metabolic Dcb977 ALBUMIN 4.1 g/dL 04/05/2017 Comp Metabolic Euw762 TPRO 6.2 g/dL 04/05/2017 Comp Metabolic Kem264 GLOB 2.2 g/dL 04/05/2017 Comp Metabolic Ukv539 A/G Ratio 1.9 Ratio 04/05/2017 Comp Metabolic Yqd976 Osmo 274 mOsmo 04/05/2017 Cbc With Differential Ord2 WBC 6.03 K/ul 04/05/2017 Cbc With Differential Ord2 RBC 4.78 M/ul 04/05/2017 Cbc With Differential Ord2 HGB 11.8 g/dl 04/05/2017 Cbc With Differential Ord2 Neut% 66.1 % 04/05/2017 Cbc With Differential Ord2 HCT 36.8 % 04/05/2017 Cbc With Differential Ord2 Lymph% 21.2 % 04/05/2017 Cbc With Differential Ord2 MCV 77.0 fl 04/05/2017 Cbc With Differential Ord2 [place]% 8.3 % 04/05/2017 Cbc With Differential Ord2 MCH 24.7 pg 04/05/2017 Cbc With Differential Ord2 MCHC 32.1 pg 04/05/2017 Cbc With Differential Ord2 Eos% 3.6 % 04/05/2017 Cbc With Differential Ord2 PLT 279 K/ul 04/05/2017 Cbc With Differential Ord2 Baso% 0.8 % 04/05/2017 Cbc With Differential Ord2 Neut ABS# 3.98 K/ul 04/05/2017 Cbc With Differential Ord2 RDW 17.3 % 04/05/2017 Cbc With Differential Ord2 Lymph ABS# 1.28 K/ul 04/05/2017 Cbc With Differential Ord2 [place] ABS# 0.5 K/ul 04/05/2017 Cbc With Differential [...] Ord15 CALCIUM 9.3 mg/dL 08/27/2016 Comp Metabolic Hks368 NA 138 mEq/L 10/11/2015 Comp Metabolic Sfv757 K 3.8 mEq/L 10/11/2015 Comp Metabolic Kkw330 CL 98 mEq/L 10/11/2015 Comp Metabolic Aye738 CO2 29.0 mEq/L 10/11/2015 Comp Metabolic Jny318 ANION GAP 15 10/11/2015 Comp Metabolic Ewb045 GLUCOSE 76 mg/dL 10/11/2015 Comp Metabolic Lgt797 Creat 0.9 mg/dL 10/11/2015 Comp Metabolic Lfg808 eGFR 68 ml/min/1.73m2 10/11/2015 Comp Metabolic Age100 BUN 14 mg/dL 10/11/2015 Comp Metabolic Bkq969 B/C Ratio 16.3 Ratio 10/11/2015 Comp Metabolic Ctm433 CALCIUM 9.7 mg/dL 10/11/2015 Comp Metabolic Onp373 ALK PHOS 73 U/L 10/11/2015 Comp Metabolic Pat224 AST(SGOT) 16 U/L 10/11/2015 Comp Metabolic Wvs223 ALT(SGPT) 14 U/L 10/11/2015 Comp Metabolic Fji839 BILI T 0.8 mg/dL 10/11/2015 Comp Metabolic Vga068 ALBUMIN 4.6 g/dL 10/11/2015 Comp Metabolic Noh485 TPRO 7.1 g/dL 10/11/2015 Comp Metabolic Vmr783 GLOB 2.5 g/dL 10/11/2015 Comp Metabolic Mdx318 A/G Ratio 1.8 Ratio 10/11/2015 Comp Metabolic Ohq163 Osmo 275 mOsmo 10/11/2015 Cbc With Differential [...] hTSH II 1.70 uIU/mL 10/11/2015 Comp Metabolic Yqq582 NA 130 mEq/L 08/09/2015 Comp Metabolic Iwg598 K 3.6 mEq/L 08/09/2015 Comp Metabolic Lyp571 CL 94 mEq/L 08/09/2015 Comp Metabolic Gkp729 CO2 30.0 mEq/L 08/09/2015 Comp Metabolic Jnx741 ANION GAP 10 08/09/2015 Comp Metabolic Iqn229 GLUCOSE 156 mg/dL 08/09/2015 Comp Metabolic Kvn486 Creat 0.9 mg/dL 08/09/2015 Comp Metabolic Xyt158 eGFR 67 ml/min/1.73m2 08/09/2015 Comp Metabolic Gyd637 BUN 23 mg/dL 08/09/2015 Comp Metabolic Xka100 B/C Ratio 26.4 Ratio 08/09/2015 Comp Metabolic Fti036 CALCIUM 9.6 mg/dL 08/09/2015 Comp Metabolic Vhn391 ALK PHOS 95 U/L 08/09/2015 Comp Metabolic Ibw044 AST(SGOT) 12 U/L 08/09/2015 Comp Metabolic Ehy208 ALT(SGPT) 12 U/L 08/09/2015 Comp Metabolic Dia080 BILI T 0.7 mg/dL 08/09/2015 Comp Metabolic Ljk026 ALBUMIN 4.1 g/dL 08/09/2015 Comp Metabolic Qxv546 TPRO 6.4 g/dL 08/09/2015 Comp Metabolic Spi343 GLOB 2.3 g/dL 08/09/2015 Comp Metabolic Qrn478 A/G Ratio 1.8 Ratio 08/09/2015 Comp Metabolic Snn661 Osmo 268 mOsmo 08/09/2015 Cbc With Differential [...] Ord2 RDW 14.0 % 08/09/2015 CHEM 14 3736147 AST 14 U/L 12/25/2013 CHEM 14 20280505 ALT 17 IU/L 12/25/2013 CHEM 14 0752405 BUN 8 MG/DL 12/25/2013 CHEM 14 7277708 ALBUMIN 4.1 GM/DL 12/25/2013 CHEM 14 4626259 CHLORIDE 98 MMOL/L 12/25/2013 CHEM 14 6749185 BILI TOT 0.9 MG/DL 12/25/2013 CHEM 14 0036839 ALK PHOS 55 U/L 12/25/2013 CHEM 14 6725879 SODIUM 133 MMOL/L 12/25/2013 CHEM 14 3406076 CREATININE 0.86 MG/DL 12/25/2013 CHEM 14 5284300 CALCIUM 9.2 MG/DL 12/25/2013 CHEM 14 0249887 POTASSIUM 3.9 MMOL/L 12/25/2013 CHEM 14 1053530 PROT TOT 6.1 GM/DL 12/25/2013 CHEM 14 7954536 GLUCOSE 95 MG/DL 12/25/2013 CHEM 14 6167006 BICARB 29 MMOL/L 12/25/2013 CHEM 14 8024653 ANION GAP 6 MEQ/L 12/25/2013 GFR CALC 5636179 GFR AA >60 ML/MIN 12/25/2013 GFR CALC 6748200 GFR NON-AA >60 ML/MIN 12/25/2013 LIPASE 7488465 LIPASE 17 IU/L 12/05/2013 AMYLASE 3790179 AMYLASE 49 IU/L 12/05/2013 CHEM 14 0991560 AST 16 U/L 12/04/2013 CHEM 14 3117658 ALT 14 IU/L 12/04/2013 CHEM 14 5864289 BUN 18 MG/DL 12/04/2013 CHEM 14 2692454 ALBUMIN 4.6 GM/DL 12/04/2013 CHEM 14 7466418 CHLORIDE 99 MMOL/L 12/04/2013 CHEM 14 2581280 BILI TOT 1.5 MG/DL 12/04/2013 CHEM 14 2444600 ALK PHOS 60 U/L 12/04/2013 CHEM 14 5127525 SODIUM 134 MMOL/L 12/04/2013 CHEM 14 4302625 CREATININE 0.92 MG/DL 12/04/2013 CHEM 14 1340190 CALCIUM 9.7 MG/DL 12/04/2013 CHEM 14 9593608 POTASSIUM 3.4 MMOL/L 12/04/2013 CHEM 14 7233934 PROT TOT 6.9 GM/DL 12/04/2013 CHEM 14 0553663 GLUCOSE 105 MG/DL 12/04/2013 CHEM 14 4835108 BICARB 27 MMOL/L 12/04/2013 CHEM 14 6995202 ANION GAP 8 MEQ/L 12/04/2013 GFR CALC 9062549 GFR AA >60 ML/MIN 12/04/2013 GFR CALC 0844931 GFR NON-AA 59.0L ML/MIN 12/04/2013 URINALYSIS NONAUTO W/O SCOPE 65616 Specific [place] 1.015 DateTime(Free Text in Aprima) URINALYSIS NONAUTO W/O SCOPE 37661 PH 6.0 DateTime(Free Text in Apr[employer]) URINALYSIS NONAUTO W/O SCOPE 62610 GLUCOSE neg DateTime( Free Text in [employer]) URINALYSIS NONAUTO W/O SCOPE 56486 Protein neg DateTime( Free Text in [employer]) URINALYSIS NONAUTO W/O SCOPE 47388 Blood neg DateTime(Free Text in [employer]) URINALYSIS NONAUTO W/O SCOPE 54678 Bilirubin neg DateTime(Free Text in Apr[employer]) URINALYSIS NONAUTO W/O SCOPE 62229 Ketones neg DateTime( Free Text in Apr[employer]) URINALYSIS NONAUTO W/O SCOPE 26641 Urobilinogen neg DateTime(Free Text in Apr[employer]) URINALYSIS NONAUTO W/O SCOPE 57340 Nitrite 2+ DateTime( Free Text in Apr[employer]) URINALYSIS NONAUTO W/O SCOPE 47812 Leukocytes DateTime( Free Text in Apr) Review of Systems System Result Effective Dates Constitutional recent illness 12/03/2017 Constitutional No chills [...] accomodation 10/22/2014 None Full Exam - General 1995 Ears/Nose/Throat [...] flat 10/31/2013 None Full Exam - General 1995 Constitutional general appearance Overall: well developed 10/18/2013 None Full Exam - General 1995 Constitutional [...] bilaterally 08/30/2013 None Full Exam - General 1995 Respiratory respiratory effort/rhythm Overall: no retractions 08/30/2013 [...] bilaterally 06/21/2013 None Full Exam - General 1994 [...] CPT-4: G8553 08/02/2017 THER/PROPH/DIAG INJ SC/IM CPT-4: 23650 07/12/2017 TRIAMCINOLONE ACET INJ NOS CPT-4: J3301 07/12/2017 PRESCRIP TRANSMIT VIA ERX SY CPT-4: G8553 01/19/2017 TRIAMCINOLONE ACET INJ NOS CPT-4: J3301 10/05/2016 TRIAMCINOLONE ACET INJ NOS CPT-4: J3301 04/14/2016 THER/PROPH/DIAG INJ SC/IM CPT-4: 41311 04/14/2016 THER/PROPH/DIAG INJ SC/IM CPT-4: 50236 02/14/2015 TRIAMCINOLONE ACET INJ NOS CPT-4: J3301 02/14/2015 ROCEPHIN, PER 250 MG CPT-4: J0696 02/14/2015 ROUTINE VENIPUNCTURE CPT-4: 53812 12/25/2013 URINALYSIS NONAUTO W/O SCOPE CPT-4: 23492 12/04/2013 ROUTINE VENIPUNCTURE CPT-4: 53745 12/04/2013 ROCEPHIN, PER 250 MG CPT-4: J0696 12/04/2013 THER/PROPH/DIAG INJ SC/IM CPT-4: 56116 12/04/2013 PRESCRIP TRANSMIT VIA ERX SY CPT-4: G8553 10/18/2013 PRESCRIP TRANSMIT VIA ERX SY CPT-4: G8553 06/21/2013 PRESCRIP TRANSMIT VIA ERX SY CPT-4: G8553 05/31/2013 Vital Signs Date Vital 12/03/2017 Blood Pressure 1: 142/68 Code : 8480-6 Heart Rate 1: 86 bpm Height: 5'3" SpO2: 94% 10/11/2017 Blood Pressure 1: 128/72 Code : 8480-6 BMI: 26.6 Code : 53347-3 Heart Rate 1 : 94 bpm Height: 5'3" SpO2: 98% Weight: 150 lbs 08/03/2017 Blood Pressure 1: 132/76 Code : 8480-6 BMI: 25.2 Code : 99292-2 Heart Rate 1 : 89 bpm Height: 5'3" SpO2: 97% Waist Measure (cm): 79 cm Weight: 142 lbs 08/02/2017 Blood Pressure 1: 140/58 Code : 8480-6 BMI: 25.2 Code : 49602-7 Heart Rate 1 : 61 bpm Height: 5'3" SpO2: 95% Weight: 142 lbs 07/12/2017 Blood Pressure 1: 126/60 Code : 8480-6 BMI: 25.9 Code : 59308-8 Heart Rate 1 : 84 bpm Height: 5'3" SpO2: 95% Weight: 146 lbs 06/29/2017 Blood Pressure 1: 140/76 Code : 8480-6 Blood Pressure 1: 132/70 Code: 8480-6 BMI: 25.7 Code: 44124-1 Heart Rate 1: 88 bpm Height: 5'3" SpO2: 97% Weight: 145 lbs 06/14/2017 Blood Pressure 1: 122/62 Code : 8480-6 BMI: 25.7 Code : 19567-0 Heart Rate 1 : 80 bpm Height: 5'3" SpO2: 96% Weight: 145 lbs 04/05/2017 Blood Pressure 1: 138/70 Code : 8480-6 BMI: 25.7 Code : 73761-5 Heart Rate 1 : 76 bpm Height: 5'3" SpO2: 96% Weight: 145 lbs 01/19/2017 Blood Pressure 1: 130/60 Code : 8480-6 BMI: 26.9 Code : 02375-5 Heart Rate 1 : 81 bpm Height: 5'3" SpO2: 96% Weight: 153 lbs 10/05/2016 Blood Pressure 1: 128/86 Code : 8480-6 BMI: 27.5 Code : 12699-2 Heart Rate 1 : 78 bpm Height: 5'3" SpO2: 94% Weight: 156 lbs 04/14/2016 Blood Pressure 1: 140/72 Code : 8480-6 BMI: 26.8 Code : 17855-5 Heart Rate 1 : 78 bpm Height: 5'3" SpO2: 94% Weight: 152 lbs 01/13/2016 Blood Pressure 1: 128/68 Code : 8480-6 BMI: 26.4 Code : 58612-6 Heart Rate 1 : 84 bpm Height: 5'3" SpO2: 91% Weight: 150 lbs 10/11/2015 Blood Pressure 1: 138/68 Code : 8480-6 BMI: 26.1 Code : 49115-6 Height: 5'3" Weight: 148 lbs 08/09/2015 Blood Pressure 1: 140/62 Code : 8480-6 BMI: 25.2 Code : 57563-0 Heart Rate 1 : 86 bpm Height: 5'3" SpO2: 97% Weight: 143 lbs 05/24/2015 Blood Pressure 1: 132/68 Code : 8480-6 BMI: 26.1 Code : 47816-4 Heart Rate 1 : 79 bpm Height: 5'3" SpO2: 96% Weight: 148 lbs 04/24/2015 Blood Pressure 1: 168/70 Code : 8480-6 BMI: 26.4 Code : 86802-7 Heart Rate 1 : 75 bpm Height: 5'3" SpO2: 97% Weight: 150 lbs 02/14/2015 Blood Pressure 1: 124/64 Code : 8480-6 BMI: 25.5 Code : 89118-8 Heart Rate 1 : 87 bpm Height: 5'3" SpO2: 97% Temperature: 37.6 (C) / 99.7 (F) Weight: 145 lbs 10/22/2014 Blood Pressure 1: 142/74 Code : 8480-6 Heart Rate 1: 72 bpm Weight: 148 lbs 08/22/2014 Blood Pressure 1: 132/72 Code : 8480-6 BMI: 25.9 Code : 65137-8 Heart Rate 1 : 78 bpm Height: 5'3" Weight: 147 lbs 02/21/2014 Blood Pressure 1: 124/62 Code : 8480-6 BMI: 24.3 Code : 62252-8 Heart Rate 1 : 64 bpm Height: 5'3" Weight: 138 lbs 12/19/2013 Blood Pressure 1: 124/62 Code : 8480-6 Heart Rate 1: 84 bpm SpO2: 98% Weight: 139 lbs 12/04/2013 Blood Pressure 1: 142/64 Code : 8480-6 Heart Rate 1: 88 bpm Temperature: 36.6 (C) / 97.8 (F) Weight: 139 lbs 11/23/2013 Blood Pressure 1: 126/68 Code : 8480-6 BMI: 24.0 Code : 09605-5 Heart Rate 1 : 76 bpm Height: [...] Code : 8480-6 BMI: 25.3 Code : 76147-9 Heart Rate 1 : 84 bpm Height: 5'4" Weight: 150 lbs 06/21/2013 Blood Pressure 1: 140/70 Code : 8480-6 Blood Pressure 2: 148/73 Code: 8480-6 BMI: 25.0 Code: 63946-6 Heart Rate 1: 78 bpm Height: 5'4" Weight: 148 lbs 05/31/2013 Blood Pressure 1: 156/92 Code : 8480-6 BMI: 25.0 Code : 87919-3 Heart Rate 1 : 80 bpm Height: 5'4" Weight: 148 lbs Functional Status No Functional Status data History of Present Illness Symptom Name Status Result Effective Date Notes hip pain Location on the left 12/03/2017 [...] Present Encounters Encounter Performer Location Codes Date 01054 EST. PATIENT, LEVEL III Diagnosis: Other muscle spasm[ICD10: M62.838] Diagnosis: Pain in left hip[ICD10: M25.552] Diagnosis: Dysuria[ICD10: R30.0] Piper Carolina MD, [facility] CPT-4: 82432 12/03/2017 [id number] EST. PATIENT, LEVEL III Diagnosis: Zoster without complications[ICD10: B02.9] Piper Carolina MD, [facility] CPT-4: 28592 10/11/2017 ([id number]) 30602 EST. PATIENT, LEVEL IV Diagnosis: Essential (primary) hypertension[ICD10: I10] Diagnosis: Nonrheumatic aortic (valve) stenosis[ICD10: I35.0] Diagnosis: Other allergic rhinitis[ICD10: J30.89] Donya Carolina MD, [facility] CPT-4: 60486 08/02/2017 [id number] EST. PATIENT, LEVEL IV Diagnosis: Other acute sinusitis[ICD10: J01.80] Diagnosis: Other allergic rhinitis[ICD10: J30.89] Diagnosis: Wheezing[ICD10: R06.2] Piper Carolina MD, [facility] CPT-4: 53940 07/12/2017 [id number]) 55691 EST. PATIENT, LEVEL IV Diagnosis: Nonrheumatic aortic (valve) stenosis[ICD10: I35.0] Diagnosis: Essential (primary) hypertension[ICD10: I10] Donya Carolina MD, [facility] CPT-4: 99865 06/29/2017 [id number]) 64015 EST. PATIENT, LEVEL IV Diagnosis: Essential (primary) hypertension[ICD10: I10] Diagnosis: Functional diarrhea[ICD10: K59.1] Diagnosis: Nausea[ICD10: R11.0] Donya Carolina MD, [facility] CPT-4: 57741 06/14/2017 ([id number] 24298 EST. 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 PATIENT, LEVEL III Diagnosis: Functional diarrhea[ICD10: K59.1] Diagnosis: Nausea[ICD10: R11.0] Salima Carolina MD, [facility] CPT-4: 01591 01/19/2017 ([id number]) 33224 EST. PATIENT, LEVEL III Diagnosis: Allergic rhinitis due to pollen[ICD10: J30.1] Diagnosis: Cough[ICD10: R05] Donya Carolina MD, [facility] CPT-4: 07985 10/05/2016 ([id number]) 33844 EST. PATIENT, LEVEL IV Diagnosis: Essential (primary) hypertension[ICD10: I10] Diagnosis: Gastro-esophageal reflux disease without esophagitis[ICD10: K21.9] Diagnosis: Allergic rhinitis due to pollen[ICD10: J30.1] Diagnosis: Parkinson's disease[ICD10: G20] Donya Carolina MD, [facility] CPT-4: 55751 04/14/2016 [id number]) 09386 EST. PATIENT, LEVEL IV Diagnosis: Essential (primary) hypertension[ICD10: I10] Diagnosis: Nonrheumatic aortic (valve) stenosis[ICD10: I35.0] Diagnosis: Allergic rhinitis, unspecified[ICD10: J30.9] Donya Carolina MD, [facility] CPT-4: 51843 01/13/2016 ([id number]) 68607 EST. 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 PATIENT, LEVEL IV Diagnosis: Essential (primary) hypertension[ICD10: I10] Diagnosis: Other specified noninfective gastroenteritis and colitis[ICD10: K52.89] Diagnosis: Unspecified hemorrhoids[ICD10: K64.9] Donya Carolina MD, [facility] CPT-4: 32426 08/09/2015 ([id number]) 69064 EST. PATIENT, LEVEL IV Diagnosis: Lumbar back pain[ICD9: 724.2] Diagnosis: Fecal incontinence[ICD9: 787.60] Diagnosis: Numbness of legs[ICD9: 782.0] Diagnosis: Diarrhea[ICD9: 787.91] Salima Carolina MD [facility] CPT-4: 63199 05/24/2015 ([id number]) 34794 EST. PATIENT, LEVEL IV Diagnosis: ESSENTIAL HYPERTENSION[ICD9: 401.9] Diagnosis: DEPRESSIVE DISORDER NEC[ICD9: 311] Salima Carolina MD, [facility] CPT-4: 23297 04/24/2015 ([id number]) 17319 EST. PATIENT, LEVEL III Diagnosis: ACUTE SINUSITIS[ICD9: 461.9] Diagnosis: COUGH[ICD9: 786.2] Donya Carolina MD [facility] CPT-4: 96684 02/14/2015 ([id number]) 56922 EST. PATIENT, LEVEL IV Diagnosis: ESSENTIAL HYPERTENSION[ICD9: 401.9] Diagnosis: Depression[ICD9: 311] Diagnosis: Hip pain[ICD9: 719.45] Salima Carolina MD, [facility] CPT-4: 85089 10/22/2014 ([id number]) 74573 EST. PATIENT, LEVEL IV Diagnosis: ESSENTIAL HYPERTENSION[ICD9: 401.9] Diagnosis: Hip pain[ICD9: 719.45] Diagnosis: Depression[ICD9: 311] Salima Carolina MD, [facility] CPT-4: 37736 08/22/2014 ([id number]) 99861 EST. PATIENT, LEVEL IV Diagnosis: ESSENTIAL HYPERTENSION[SNOMED: 50853485] Diagnosis: Renal cyst[ICD9: 753.10] Diagnosis: Constipation - functional[ICD9: 564.09] Salima Carolina MD [facility] CPT-4: 10300 02/21/2014 ([id number]) 96116 EST. PATIENT, LEVEL III Diagnosis: Nausea and vomiting[ICD9: 787.01] Diagnosis: Diarrhea[ICD9: 787.91] Diagnosis: Renal cyst[ICD9: 753.10] Diagnosis: UTI[ICD9: 599.0] Salima Carolina MD [facility] CPT-4: 84775 12/19/2013 ([id number]) 14282 EST. PATIENT, LEVEL III Diagnosis: Diarrhea[ICD9: 787.91] Diagnosis: Nausea and vomiting[ICD9: 787.01] Diagnosis: UTI[ICD9: 599.0] Donya Carolina MD [facility] CPT-4: 42558 12/04/2013 ([id number]) 58555 EST. PATIENT, LEVEL III Diagnosis: ESSENTIAL HYPERTENSION[SNOMED: 32288445] Diagnosis: Abdominal pain[ICD9: 789.00] Salima Carolina MD [facility] CPT- 4: 64241 11/23/2013 ([id number]) Patient admitted to the hospital from clinic (NO CHARGE) Diagnosis: Diarrhea[ICD9: 787.91] Diagnosis: Abdominal discomfort[ICD9: 789.00] Diagnosis: Nausea and vomiting[ICD9: 787.01] Salima Carolina MD [facility] CPT-4: 96479H 10/31/2013 ([id number]) 75938 EST. PATIENT, LEVEL III Diagnosis: Diarrhea[ICD9: 787.91] Salima Carolina MD [facility] CPT-4: 25042 10/18/2013 ([id number]) 06482 EST. PATIENT, LEVEL III Diagnosis: ESSENTIAL HYPERTENSION[SNOMED: 78156530] Salima Carolina MD [facility] CPT-4: 52903 08/30/2013 ([id number]) 33996 EST. PATIENT, LEVEL III Diagnosis: ESSENTIAL HYPERTENSION[SNOMED: 66429006] [facility] CPT-4: 78204 06/21/2013 ([id number]) 59136 EST. PATIENT, LEVEL III Diagnosis: ESSENTIAL HYPERTENSION[SNOMED: 09543826] [facility] CPT-4: 19316 05/31/2013 Plan of Care Planned Activity Notes Codes Status Date Visit Plan: Left hip pain, muscle spasms [...] check UA and treat as indicated. 12/03/2017 Patient Education: Patient Medication Summary Completed [...] considered contagious. 10/11/2017 Appointment: Piper Salazar WPtel: [address] [place], [place] [id number] (30 min) [facility] 10/11/2017 Patient Education: Patient Medication Summary Completed [...] care surrogate. 08/03/2017 Appointment: Donya Lombardi WPtel: [address] [place], [place] [phone] [facility] - Annual Wellness Visit 08/03/2017 Patient Education: [...] this week 08/02/2017 Appointment: Donya Lombardi WPtel: [address] [place], [place] [phone] (30 min) Complex 08/02/2017 Patient Education: Patient [...] allergy spray. 07/12/2017 Appointment: Piper Salazar WPtel: [facility] (15 min) Moderate 07/12/2017 Patient Education: Patient [...] for management 06/29/2017 Appointment: Donya Lombardi WPtel[facility] [phone] [phone] (30 min) Complex 06/29/2017 Patient Education: Patient Medication Summary Completed 06/29/2017 Patient Education: Hypertension Completed 06/29/2017 Care Plan: Referral Order SNOMED-CT : 252042988 Pending 06/29/2017 Visit Plan: Hypertension - well [...] with immodium-recommend patient stop digestive support supplement Nmymmhcxl-tusuygb-wbp claritin Tinea versicolor-restart ketoconazole 04/05/2017 Appointment: Donya Lombardi WPtel: [address] [place] [address] (30 min) Complex 04/05/2017 Patient Education: Patient Medication Summary Completed 04/05/2017 Visit Plan: Diarrhea - start on flagyl - continue with probiotic - call in one week to report on symptoms. 01/19/2017 Appointment: Salima Carolina WPtel: [address] [place] [address] (15 min) Moderate 01/19/2017 Patient Education: Patient Medication Summary Completed 01/19/2017 Visit Plan: Allergies -k1wium-WYU- chronic - recommended pt to use allergy [...] allergy spray. 10/05/2016 Appointment: Donya Lombardi WPtel: [address] [place] [address] (30 min) Complex 10/05/2016 Patient Education: Patient Medication Summary Completed 10/05/2016 Appointment: Donya Lombardi WPtel: [address] [place] [address] (30 min) Complex 05/18/2016 Visit Plan: Hypertension [...] symptoms are not improving. Parkinsons-seeing neurologist in [place] 04/14/2016 Patient Education: Patient Medication Summary Completed [...] 01/13/2016 Care Plan: Referral Order SNOMED-CT : [id number] Ordered 01/13/2016 Visit Plan: Hypertension - well [...] current medications. 04/24/2015 Appointment: Salima Carolina WPtel: [facility] [facility] Follow up 04/24/2015 Patient Education: Patient Medication Summary Completed 04/24/2015 Patient Education: Hypertension Completed 04/24/2015 Care Plan: COMPLETE CBC AUTOMATED LOINC : 86827-9 Ordered 04/24/2015 Visit Plan: Sinusitis - Pt [...] Follow up 10/22/2014 Appointment: Salima Carolina WPtel: [phone] [facility] Follow up 10/22/2014 Patient Education: Patient Medication [...] physical therapy. 08/22/2014 Appointment: Salima Carolina WPtel: [phone] [facility] Follow up 08/22/2014 Patient Education: Patient Medication Summary Completed 08/22/2014 Patient Education: Hypertension Completed 08/22/2014 Care Plan: Referral Order SNOMED-CT : 813338328 Ordered 08/22/2014 Visit Plan: Hypertension - well controlled - continue with current medications, continue with no added salt diet. Pt has been encouraged to exercise daily. The pt has been advised to call the office if there are any acute concerns about change in blood pressure readings at home. Renal cyst - pt had drained at [facility] - she will go back to Dr. Tran in 3 months - she is wondering about being evaluated by Dr. Schwartz in 3 months instead of going back to [facility]. Constipation - uncontrolled - I [...] this regimen. 02/21/2014 Appointment: Salima Carolina WPtel: [address] [place] [phone] Follow up 02/21/2014 Patient Education: Patient Medication Summary Completed 02/21/2014 Patient Education: Hypertension Completed 02/21/2014 Patient Education: Patient Medication Summary Completed 12/25/2013 Visit Plan: N/V/D-Dr Carolina in to evaluate patient-plan for outpatient IVF x 2 days-clear liquid/bland diet-use lomotil prn diarrhea- call if symptoms do not resolve, or if any worse. Renal oinl-paida-dirhn to urologist at [facility]-await culture 12/19/2013 Patient [...] acute infection. 12/04/2013 Appointment: Donya Lombardi WPtel: [facility]4 [phone] [place] [address] 12/04/2013 Patient Education: Patient Medication Summary Completed [...] not improving. 11/23/2013 Appointment: Salima Carolina WPtel: [facility] follow up 11/23/2013 Patient Education: Patient Medication [...] negative cdiff. 10/18/2013 Appointment: Salima Carolina WPtel: [facility]0 [place] [phone] [facility] 10/18/2013 Patient Education: Patient Medication Summary Completed 10/18/2013 Visit Plan: Hypertension - well controlled - continue with current medications, continue with no added salt diet. Pt has been encouraged to exercise daily. The pt has been advised to call the office if there are any acute concerns about change in blood pressure readings at home. 08/30/2013 Appointment: Salima Carolina WPtel: [phone] [facility] Follow up 08/30/2013 Patient Education: Patient Medication [...] cozaar 50mg. 06/21/2013 Appointment: Salima Carolina WPtel: [phone] [facility] Follow up 06/21/2013 Patient Education: Patient Medication [...] acute concerns. 05/31/2013 Appointment: Salima Carolina WPtel: [facility]5 [facility] New Patient 05/31/2013 Patient Education: Patient Medication Summary Completed 05/31/2013 Patient Education: Hypertension Completed 05/31/2013 Referral: Xenia Holcomb Referral Appointment Requested Referral: [facility] WPtel: [address] [place], [place] [phone] [place] Referral Initiated Referral: Anton Alvarado Referral Appointment Requested Instructions [...] of plan. Heart murmur -needs echo-will scheduled Qlbxvoul-nivedwp-zlintcy to increase probiotics and monitor symptoms-will look [...] change in blood pressure readings at home. Upwwogeh-tnajjvf-VN called in for lomotil and instructed on [...] symptoms are not improving. Parkinsons-seeing neurologist in [place] . Hypertension - uncontrolled - the patient's [...] acute concerns. Pt Started on cozaar 50mg. fasting labs kenalog call me if you don't start feeling better . Allergies -a4vuro-MRD- chronic - recommended pt to use allergy [...] not resolve, or if any worse. Renal ipmz-aoazv-kmjcr to urologist at [facility]-await culture appt at [facility] on 08/28/14 @ 2:45pm. Hypertension [...] Orthopedist, may also benefit from physical therapy. Recommend tylenol 2 tabs at bedtime for [...] immodium once we have a negative cdiff. . Left hip pain, muscle spasms - [...] check UA and treat as indicated. . Hypertension - well controlled - continue with current medications, continue with no added salt diet. Pt has been encouraged to exercise daily. The pt has been advised to call the office if there are any acute concerns about change in blood pressure readings at home. Renal cyst - pt had drained at [facility] - she will go back to Dr. Tran in 3 months - she is wondering about being evaluated by Dr. Schwartz in 3 months instead of going back to [facility]. Constipation - uncontrolled - I [...] with immodium-recommend patient stop digestive support supplement Tlnhmzjtf-hydxqce-epf claritin Tinea versicolor-restart ketoconazole . Hypertension - [...]
--- OUTSIDE RECORDS SUMMARY | 2019-01-04 08:26 | XMS REPORT | CCD ---
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 Name Role Phone PP Unavailable CCM Unavailable Summary Purpose Interface Exchange Insurance Providers Payer name Policy type / Coverage type Covered green party ID Effective Begin Date Effective End Date WPS Medicare Part B Medicare Part B [id number] Unknown Unknown AETNA Medicare Part B [id number] Unknown Unknown Family history Father Diagnosis Age [...] hours [address] in [place]./ Retired Nov 2013 08/22/2014 Marital status Unknown 05/31/[address]: 7475418 Quit over 10 years ago 05/31/[address]: 205524188 Never drinks alcohol 05/31/2013 Has the patient [...] Start Date Stop Date Status Fill Instructions hydrocodone 10 mg-acetaminophen 325 mg tablet RxNorm: 122349 1 Tablet(s) PO Q4 PRN as needed 12/09/2017 01/07/2018 Active Zithromax Z-Javier 250 mg tablet RxNorm: 487001 1 Tablet(s) PO UD 10/29/2017 11/02/2017 Inactive triamcinolone acetonide 0.025 % topical cream RxNorm: 6998208 1 Application TOP BID 10/11/2017 No Stop Date Active valacyclovir 1 gram tablet RxNorm: 450057 1 Tablet(s) PO TID 10/17/2017 Inactive ketoconazole 2 % shampoo RxNorm: 700877 1 Application TOP every other day APPLY HEAD TO TOE, LEAVE ON FOR 5 MINUTES THEN RINSE, DO EVERY OTHER DAY X 2 WEEKS, MAY NEED ANOTHER 3RD 09/08/20172016 Inactive hydrochlorothiazide 25 mg tablet RxNorm: 960121 1 Tablet(s) PO daily TAKE 1 TABLET EVERY DAY 08/02/2017 10/25/2018 Active Xyzal 5 mg tablet RxNorm: 868672 1 Tablet(s) PO daily 201608/31/2017 Inactive Keflex 500 mg capsule RxNorm: 566773 1 Capsule(s) PO TID 201607/25/2017 Inactive Keflex 500 mg capsule RxNorm: 563278 1 Capsule(s) PO TID 201607/18/2017 Inactive Kenalog 40 mg/mL suspension for injection RxNorm: 2009790 Milliliter(s) Inj 07/12/2017 07/12/2017 Inactive Zithromax Z-Javier 250 mg tablet RxNorm: 631984 1 Tablet(s) PO UD 07/06/2017 07/10/2017 Inactive amlodipine 5 mg tablet RxNorm: 500644 1 Tablet(s) PO daily 09/23/2018 Active amlodipine 5 mg tablet RxNorm: 278873 1 Tablet(s) PO daily 07/01/2017 Inactive promethazine 25 mg tablet RxNorm: 624048 1 Tablet(s) PO Q6 as needed nausea 01/21/2017 No Stop Date Active Probiotic Colon Support 240 mg (3 billion cell) capsule RxNorm: 1 Capsule(s) PO daily 01/19/2017 No Stop Date Active Flagyl 500 mg tablet RxNorm: 609362 1 Tablet(s) PO TID 201601/25/2017 Inactive prednisone 20 mg tablet RxNorm: 287480 1 Tablet(s) PO BID 11/1011/14/2016 Inactive prednisone 20 mg tablet RxNorm: 089634 1 Tablet(s) PO BID 11/1011/09/2016 Inactive doxycycline hyclate 100 mg tablet RxNorm: 452346 1 Tablet(s) PO BID 11/03/2016 11/02/2016 Inactive doxycycline hyclate 100 mg tablet RxNorm: 708434 1 Tablet(s) PO BID 11/03/2016 11/09/2016 Inactive losartan 50 mg tablet RxNorm: 098071 TAKE 1 TABLET EVERY EVENING 10/27/2016 06/28/2017 Inactive escitalopram 10 mg tablet RxNorm: 554781 TAKE 1 TABLET EVERY EVENING 10/12/2016 06/13/2017 Inactive Kenalog 40 mg/mL suspension for injection RxNorm: 3803983 Milliliter(s) Inj 10/05/2016 10/05/2016 Inactive Zithromax Z-Javier 250 mg tablet RxNorm: 843777 1 Tablet(s) PO UD 07/15/2016 01/18/2017 Inactive z pack as directed amlodipine 5 mg tablet RxNorm: 248944 1 Tablet(s) TAKE 1 TABLET TWICE DAILY 06/23/2016 06/28/2017 Inactive hydrochlorothiazide 25 mg tablet RxNorm: 274323 1 Tablet(s) PO daily TAKE 1 TABLET EVERY DAY 06/23/2016 08/01/2017 Inactive Kenalog 40 mg/mL suspension for injection RxNorm: 7180254 Milliliter(s) Inj 04/14/2016 04/14/2016 Inactive omeprazole 20 mg capsule,delayed release RxNorm: 313859 1 Capsule(s) PO daily 04/14/2016 10/04/2016 Inactive losartan 50 mg tablet RxNorm: 537577 1 Tablet(s) PO QPM 201410/11/2016 Inactive amlodipine 5 mg tablet RxNorm: 665695 TAKE 1 TABLET TWICE DAILY 09/16/2015 06/11/2016 Inactive Lomotil 2.5 mg-0.025 mg tablet RxNorm: 3674154 1 Tablet(s) PO PRN take 1 tab after each loose stool max of 8 tabs per day 08/16/2015 01/12/2016 Inactive one after each loose bm. limit 8 per day hydrocortisone 2.5 % rectal cream RxNorm: 175797 1 Application RTL BID PRN 08/09/2015 10/07/2015 Inactive hydrochlorothiazide 25 mg tablet RxNorm: 124158 1 Tablet(s) PO daily TAKE 1 TABLET EVERY DAY 07/02/2015 06/22/2016 Inactive escitalopram 10 mg tablet RxNorm: 092541 1 Tablet(s) PO QPM 11/201403/27/2016 Inactive amlodipine 5 mg tablet RxNorm: 791036 1 Tablet(s) PO BID 201409/15/2015 Inactive Kenalog 40 mg/mL suspension for injection RxNorm: 4192924 Milliliter(s) Inj 02/14/2015 02/14/2015 Inactive [SAVINGS FOR NON-COVERED DRUGS -- BIN:[id number], PCN: ASPROD1, Group: XXXXX, ID# [id number], Questions: . THIS IS NOT INSURANCE.] Flonase Allergy Relief 50 mcg/actuation nasal spray, suspension RxNorm: 2 [place] NASAL daily 02/14/2015 04/14/2015 Inactive [SAVINGS FOR NON-COVERED DRUGS -- BIN:302210, PCN: ASPROD1, Group: XXXXX, ID# [id number], Questions: [phone]. THIS IS NOT INSURANCE.] cefdinir 300 mg capsule RxNorm: 615882 1 Capsule(s) PO BID 02/20/2015 Inactive [SAVINGS FOR NON-COVERED DRUGS -- BIN:666331, PCN: ASPROD1, Group: XXXXX, ID# [id number], Questions: . THIS IS NOT INSURANCE.] ceftriaxone 500 mg solution for injection RxNorm: 6174989 Inj 02/14/2015 02/14/2015 Inactive [SAVINGS FOR NON-COVERED DRUGS -- BIN:446249, PCN: ASPROD1, Group: XXXXX, ID# [id number], Questions: . THIS IS NOT INSURANCE.] hydrochlorothiazide 25 mg tablet RxNorm: 556148 TAKE 1 TABLET EVERY DAY 11/06/2014 07/01/2015 Inactive hydrochlorothiazide 25 mg tablet RxNorm: 196372 1/2 Tablet(s) PO daily 11/06/2014 11/05/2014 Inactive [SAVINGS FOR UNINSURED PATIENTS -- BIN:109867, PCN: ASPROD1, Group: [id number], ID# [id number], Process claim through [employer], for questions: [phone]. THIS IS NOT INSURANCE.] escitalopram 10 mg tablet RxNorm: 473883 1 Tablet(s) PO QPM 07/01/2015 Inactive hydrochlorothiazide 25 mg tablet RxNorm: 245079 1/2 Tablet(s) PO daily 10/22/2014 11/05/2014 Inactive losartan 50 mg tablet RxNorm: 232495 1 Tablet(s) PO QPM 201308/16/2015 Inactive amlodipine 5 mg tablet RxNorm: 637237 1 Tablet(s) PO BID 201307/01/2015 Inactive escitalopram 10 mg tablet RxNorm: 992908 1 Tablet(s) PO QPM 08/21/2014 Inactive escitalopram 10 mg tablet RxNorm: 433330 1 Tablet(s) PO QPM 10/21/2014 Inactive Probiotic Colon Support 240 mg (3 billion cell) capsule RxNorm: 1 Capsule(s) PO BID 02/21/2014 02/15/2015 Inactive Lomotil 2.5 mg-0.025 mg tablet RxNorm: 8192405 1 Tablet(s) PO take 1 tab after each loose stool max of 8 tabs per day 12/22/2013 08/15/2015 Inactive one after each loose bm. limit 8 per day nitrofurantoin 100 mg capsule RxNorm: 986689 1/2 Tablet(s) PO BID 12/22/2013 12/28/2013 Inactive nitrofurantoin 100 mg capsule RxNorm: 026316 1/2 Tablet(s) PO BID 12/22/2013 12/21/2013 Inactive Zofran 4 mg tablet RxNorm: 289862 1 Tablet(s) PO Q6 PRN 12/20 No Stop Date Active Reglan 5 mg tablet RxNorm: 500851 1 Tablet(s) PO BID 201301/17/2014 Inactive potassium chloride ER 10 mEq tablet,extended release RxNorm: 516304 1 Tablet(s) PO daily 12/05/2013 01/12/2016 Inactive Zofran 4 mg tablet RxNorm: 438982 1 Tablet(s) PO Q6 PRN 12/0512/04/2013 Inactive Zofran 4 mg tablet RxNorm: 862384 1 Tablet(s) PO Q6 PRN 12/0512/19/2013 Inactive Rocephin 500 mg solution for injection RxNorm: 683907 1 Milliliter(s) Inj 12/04/2013 12/04/2013 Inactive Bactrim DS 800 mg-160 mg tablet RxNorm: 859978 1 Tablet(s) PO BID 12/04/2013 12/10/2013 Inactive Fish Oil 360 mg-1,200 mg capsule,delayed release RxNorm: 1 Capsule(s) PO daily 11/23/2013 01/12/2016 Inactive Calcium Antacid Ultra Max St 400 mg (1,000 mg) chewable tablet RxNorm: 466677 1 Tablet(s) PO TID 11/23/2013 01/12/2016 Inactive Probiotic Complex 100 mg-500 mg-50 mg capsule RxNorm: 110359 1 Capsule(s) PO BID 11/23/2013 10/22/2014 Inactive metronidazole 500 mg tablet RxNorm: 732626 1 Tablet(s) PO TID 10/26/2013 11/04/2013 Inactive metronidazole 500 mg tablet RxNorm: 471673 1 Tablet(s) PO TID 10/18/2013 10/25/2013 Inactive hydrochlorothiazide 25 mg tablet RxNorm: 772141 1 Tablet(s) PO daily 10/11/2013 10/05/2014 Inactive amlodipine 5 mg tablet RxNorm: 487501 1 Tablet(s) PO BID 201208/21/2014 Inactive losartan 50 mg tablet RxNorm: 668127 1 Tablet(s) PO QPM 201208/21/2014 Inactive hydrochlorothiazide 25 mg tablet RxNorm: 300190 1 Tablet(s) PO daily 07/25/2013 10/10/2013 Inactive hydrochlorothiazide 25 mg tablet RxNorm: 546478 1 Tablet(s) PO daily 06/21/2013 07/24/2013 Inactive losartan 50 mg tablet RxNorm: 275178 1 Tablet(s) PO QPM 201210/10/2013 Inactive ketoconazole 2 % Shampoo RxNorm: 918466 1 Application TOP every other day APPLY HEAD TO TOE, LEAVE ON FOR 5 MINUTES THEN RINSE, DO EVERY OTHER DAY X 2 WEEKS, MAY NEED ANOTHER 3RD 05/31/20132012 Inactive multivitamin capsule RxNorm: 1 Capsule(s) PO No Start Date Active aspirin 81 mg tablet RxNorm: 323216 1 Tablet(s) PO daily No Start Date Active Lutein Vison Formula oral RxNorm: 76508 oral No Start Date Active magnesium 200 mg tablet RxNorm: 1 Tablet(s) PO BID No Start Date Active Fish Oil 360 mg-1,200 mg capsule RxNorm: 101367 1 Capsule(s) PO BID No Start Date Active Vitamin D3 2,000 unit capsule RxNorm: 674921 1 Capsule(s) PO daily No Start Date Active melatonin 5 mg tablet RxNorm: 379083 1 Tablet(s) PO QHS No Start Date Active ubiquinone oral RxNorm : 82133 oral No Start Date Active Vitamin B-12 5,000 mcg/mL sublingual drops RxNorm: 5684734 1 Milliliter(s) SL daily No Start Date Active promethazine 25 mg tablet RxNorm: 795177 1 Tablet(s) PO Q6 as needed nausea No Start Date 01/20/2017 Inactive Lomotil 2.5 mg-0.025 mg tablet RxNorm: 9763232 1 Tablet(s) PO No Start Date 12/21/2013 Inactive one after each loose bm. limit 8 per day potassium 99 mg tablet RxNorm: 1 Tablet(s) PO daily No Start Date 02/20/2014 Inactive potassium chloride ER 10 mEq tablet,extended release RxNorm: 556573 1 Tablet(s) PO daily No Start Date 12/04/2013 Inactive promethazine 25 mg tablet RxNorm: 438338 1 Tablet(s) PO Q6 PRN No Start Date 10/22/2014 Inactive krill 500 mg-omega-3 150 mg-dha 45 mg-epa 75 mg-phospho- astax capsule RxNorm: 1 Capsule(s) PO daily No Start Date 2016 Inactive Zithromax Z-Javier oral RxNorm: oral No Start Date 07/05/2017 Inactive potassium chloride ER 20 mEq tablet,extended release(part/ cryst) RxNorm: 881042 oral No Start Date 12/04/2013 Inactive PreserVision AREDS 2 250 mg-2.5 mg-0.5 mg capsule RxNorm: 1 Capsule(s) PO BID No Start Date 01/12/2016 Inactive thyroid Oral RxNorm: Oral No Start Date Inactive Zithromax Z-Javier 250 mg tablet RxNorm: 721950 1 Tablet(s) PO UD No Start Date 07/14/2016 Inactive z pack as directed Fish Oil 360 mg-1,200 mg capsule,delayed release RxNorm: Oral No Start Date 11/22/2013 Inactive Probiotic Complex 100 mg-500 mg-50 mg capsule RxNorm: 834085 1 Capsule(s) PO daily No Start Date 11/22/2013 Inactive Super B [id number] tablet RxNorm: 1 Tablet(s) PO daily No Start Date 01/18/2017 Inactive Calcium Antacid Ultra Max St 400 mg (1,000 mg) chewable tablet RxNorm: 664673 1 PO No Start Date 11/22/2013 Inactive hydrochlorothiazide 25 mg tablet RxNorm: 557365 2 Tablet(s) PO daily No Start Date 06/20/2013 Inactive amlodipine 5 mg tablet RxNorm: 895131 1 Tablet(s) PO BID No Start Date 10/10/2013 Inactive Vitamin D3 2,000 unit capsule RxNorm: 160150 1 Capsule(s) PO daily No Start Date 01/12/2016 Inactive Medication Administered Medication Codes Instructions Start Date Status Kenalog 40 mg/mL suspension for injection RxNorm: 8937747 Milliliter 07/12/2017 No longer Active Kenalog 40 mg/mL suspension for injection RxNorm: 2940581 Milliliter 10/05/2016 No longer Active Kenalog 40 mg/mL suspension for injection RxNorm: 4858112 Milliliter 04/14/2016 No longer Active Kenalog 40 mg/mL suspension for injection RxNorm: 7951172 Milliliter 02/14/2015 No longer Active ceftriaxone 500 mg solution for injection RxNorm: 1931000 02/14/2015 No longer Active Rocephin 500 mg solution for injection RxNorm: 175449 1Milliliter 12/04/2013 No longer Active Immunizations Vaccine Codes Date Status Influenza CVX: 141 08/24/2013 completed Assessments Condition Codes Effective Dates Weakness ICD-10: R53.1 ICD-9: 780.79 12/03/2017 Unsteadiness [...] hTSH II 1.10 uIU/mL 04/05/2017 Comp Metabolic Hkd555 NA 138 mEq/L 04/05/2017 Comp Metabolic Ggf238 K 3.8 mEq/L 04/05/2017 Comp Metabolic Gzj933 CL 98 mEq/L 04/05/2017 Comp Metabolic Zub983 CO2 31.0 mEq/L 04/05/2017 Comp Metabolic Prc602 ANION GAP 13 04/05/2017 Comp Metabolic Bec413 GLUCOSE 83 mg/dL 04/05/2017 Comp Metabolic Tzv106 Creat 0.9 mg/dL 04/05/2017 Comp Metabolic Shh291 eGFR 64 ml/min/1.73m2 04/05/2017 Comp Metabolic Wtf055 BUN 11 mg/dL 04/05/2017 Comp Metabolic Zny196 B/C Ratio 12.2 Ratio 04/05/2017 Comp Metabolic Myg604 CALCIUM 8.9 mg/dL 04/05/2017 Comp Metabolic Ydv525 ALK PHOS 58 U/L 04/05/2017 Comp Metabolic Kpt154 AST(SGOT) 15 U/L 04/05/2017 Comp Metabolic Aqz922 ALT(SGPT) 14 U/L 04/05/2017 Comp Metabolic Nte702 BILI T 0.9 mg/dL 04/05/2017 Comp Metabolic Ewz934 ALBUMIN 4.1 g/dL 04/05/2017 Comp Metabolic Vhh027 TPRO 6.2 g/dL 04/05/2017 Comp Metabolic Ijh621 GLOB 2.2 g/dL 04/05/2017 Comp Metabolic Gek928 A/G Ratio 1.9 Ratio 04/05/2017 Comp Metabolic Ugi907 Osmo 274 mOsmo 04/05/2017 Cbc With Differential [...] 77.0 fl 04/05/2017 Cbc With Differential Ord2 [place]% 8.3 % 04/05/2017 Cbc With Differential Ord2 [...] 1.28 K/ul 04/05/2017 Cbc With Differential Ord2 [place] ABS# 0.5 K/ul 04/05/2017 Cbc With Differential [...] Ord15 CALCIUM 9.3 mg/dL 08/27/2016 Comp Metabolic Foq556 NA 138 mEq/L 10/11/2015 Comp Metabolic Oso039 K 3.8 mEq/L 10/11/2015 Comp Metabolic Grq285 CL 98 mEq/L 10/11/2015 Comp Metabolic Cyl449 CO2 29.0 mEq/L 10/11/2015 Comp Metabolic Got345 ANION GAP 15 10/11/2015 Comp Metabolic Sui853 GLUCOSE 76 mg/dL 10/11/2015 Comp Metabolic Izi772 Creat 0.9 mg/dL 10/11/2015 Comp Metabolic Khi254 eGFR 68 ml/min/1.73m2 10/11/2015 Comp Metabolic Fet210 BUN 14 mg/dL 10/11/2015 Comp Metabolic Vtz200 B/C Ratio 16.3 Ratio 10/11/2015 Comp Metabolic Pnk610 CALCIUM 9.7 mg/dL 10/11/2015 Comp Metabolic Klj382 ALK PHOS 73 U/L 10/11/2015 Comp Metabolic Igr625 AST(SGOT) 16 U/L 10/11/2015 Comp Metabolic Tro862 ALT(SGPT) 14 U/L 10/11/2015 Comp Metabolic Mcs608 BILI T 0.8 mg/dL 10/11/2015 Comp Metabolic Hvb790 ALBUMIN 4.6 g/dL 10/11/2015 Comp Metabolic Rnu779 TPRO 7.1 g/dL 10/11/2015 Comp Metabolic Yjz572 GLOB 2.5 g/dL 10/11/2015 Comp Metabolic Pfu308 A/G Ratio 1.8 Ratio 10/11/2015 Comp Metabolic Lax097 Osmo 275 mOsmo 10/11/2015 Cbc With Differential [...] hTSH II 1.70 uIU/mL 10/11/2015 Comp Metabolic Cpo875 NA 130 mEq/L 08/09/2015 Comp Metabolic Kgt313 K 3.6 mEq/L 08/09/2015 Comp Metabolic Cuy144 CL 94 mEq/L 08/09/2015 Comp Metabolic Tgu733 CO2 30.0 mEq/L 08/09/2015 Comp Metabolic Pfk186 ANION GAP 10 08/09/2015 Comp Metabolic Gey872 GLUCOSE 156 mg/dL 08/09/2015 Comp Metabolic Xqf367 Creat 0.9 mg/dL 08/09/2015 Comp Metabolic Axj607 eGFR 67 ml/min/1.73m2 08/09/2015 Comp Metabolic Yhj221 BUN 23 mg/dL 08/09/2015 Comp Metabolic Pgs339 B/C Ratio 26.4 Ratio 08/09/2015 Comp Metabolic Ftb568 CALCIUM 9.6 mg/dL 08/09/2015 Comp Metabolic Peo325 ALK PHOS 95 U/L 08/09/2015 Comp Metabolic Wve899 AST(SGOT) 12 U/L 08/09/2015 Comp Metabolic Uaa967 ALT(SGPT) 12 U/L 08/09/2015 Comp Metabolic Pnn176 BILI T 0.7 mg/dL 08/09/2015 Comp Metabolic Aib882 ALBUMIN 4.1 g/dL 08/09/2015 Comp Metabolic Dgu319 TPRO 6.4 g/dL 08/09/2015 Comp Metabolic Zcf170 GLOB 2.3 g/dL 08/09/2015 Comp Metabolic Tzn707 A/G Ratio 1.8 Ratio 08/09/2015 Comp Metabolic Zpx541 Osmo 268 mOsmo 08/09/2015 Cbc With Differential [...] Ord2 RDW 14.0 % 08/09/2015 CHEM 14 2022691 AST 14 U/L 12/25/2013 CHEM 14 2917899 ALT 17 IU/L 12/25/2013 CHEM 14 8927056 BUN 8 MG/DL 12/25/2013 CHEM 14 3705282 ALBUMIN 4.1 GM/DL 12/25/2013 CHEM 14 6443999 CHLORIDE 98 MMOL/L 12/25/2013 CHEM 14 8392106 BILI TOT 0.9 MG/DL 12/25/2013 CHEM 14 6175944 ALK PHOS 55 U/L 12/25/2013 CHEM 14 3905154 SODIUM 133 MMOL/L 12/25/2013 CHEM 14 7691126 CREATININE 0.86 MG/DL 12/25/2013 CHEM 14 2746073 CALCIUM 9.2 MG/DL 12/25/2013 CHEM 14 6819229 POTASSIUM 3.9 MMOL/L 12/25/2013 CHEM 14 1638511 PROT TOT 6.1 GM/DL 12/25/2013 CHEM 14 5765781 GLUCOSE 95 MG/DL 12/25/2013 CHEM 14 3713712 BICARB 29 MMOL/L 12/25/2013 CHEM 14 6872732 ANION GAP 6 MEQ/L 12/25/2013 GFR CALC 1022695 GFR AA >60 ML/MIN 12/25/2013 GFR CALC 1881547 GFR NON-AA >60 ML/MIN 12/25/2013 LIPASE 9134095 LIPASE 17 IU/L 12/05/2013 AMYLASE 8869879 AMYLASE 49 IU/L 12/05/2013 CHEM 14 0501837 AST 16 U/L 12/04/2013 CHEM 14 3938667 ALT 14 IU/L 12/04/2013 CHEM 14 3452758 BUN 18 MG/DL 12/04/2013 CHEM 14 0899866 ALBUMIN 4.6 GM/DL 12/04/2013 CHEM 14 3465877 CHLORIDE 99 MMOL/L 12/04/2013 CHEM 14 4121379 BILI TOT 1.5 MG/DL 12/04/2013 CHEM 14 0510006 ALK PHOS 60 U/L 12/04/2013 CHEM 14 4734813 SODIUM 134 MMOL/L 12/04/2013 CHEM 14 0736706 CREATININE 0.92 MG/DL 12/04/2013 CHEM 14 6646227 CALCIUM 9.7 MG/DL 12/04/2013 CHEM 14 7397435 POTASSIUM 3.4 MMOL/L 12/04/2013 CHEM 14 2486797 PROT TOT 6.9 GM/DL 12/04/2013 CHEM 14 2790604 GLUCOSE 105 MG/DL 12/04/2013 CHEM 14 7833967 BICARB 27 MMOL/L 12/04/2013 CHEM 14 0288101 ANION GAP 8 MEQ/L 12/04/2013 GFR CALC 1080708 GFR AA >60 ML/MIN 12/04/2013 GFR CALC 7302248 GFR NON-AA 59.0L ML/MIN 12/04/2013 URINALYSIS NONAUTO W/O SCOPE 01488 Specific [place] 1.015 DateTime(Free Text in Aprima) URINALYSIS NONAUTO W/O SCOPE 82128 PH 6.0 DateTime(Free Text in [employer]) URINALYSIS NONAUTO W/O SCOPE 62141 GLUCOSE neg DateTime( Free Text in [employer]) URINALYSIS NONAUTO W/O SCOPE 97611 Protein neg DateTime( Free Text in [employer]) URINALYSIS NONAUTO W/O SCOPE 03073 Blood neg DateTime(Free Text in [employer]) URINALYSIS NONAUTO W/O SCOPE 72941 Bilirubin neg DateTime(Free Text in [employer]) URINALYSIS NONAUTO W/O SCOPE 92357 Ketones neg DateTime( Free Text in [employer]) URINALYSIS NONAUTO W/O SCOPE 89424 Urobilinogen neg DateTime(Free Text in [employer]) URINALYSIS NONAUTO W/O SCOPE 78874 Nitrite 2+ DateTime( Free Text in [employer]) URINALYSIS NONAUTO W/O SCOPE 78310 Leukocytes DateTime( Free Text in Apr[employer]) Review [...] distress 12/03/2017 None Full Exam - General 1995 Constitutional general appearance Overall: well nourished 12/03/2017 None Full Exam - General 1995 Ears/Nose/Throat oral cavity/pharynx/larynx Overall: oral mucosa clear 12/03/2017 None Full Exam - General 1994 Respiratory auscultation Overall: breath sounds clear bilaterally 12/03/2017 None Full Exam - General 1994 Respiratory respiratory effort/rhythm Overall: no retractions 12/03/2017 None Full Exam - General 1995 Respiratory respiratory effort/rhythm Overall: normal rate 12/03/2017 [...] nourished 11/23/2013 None Full Exam - General 1995 Ears/Nose/Throat oral cavity/pharynx/larynx Overall: oral mucosa clear 11/23/2013 None Full Exam - General 1994 Ears/Nose/Throat oral cavity/pharynx/larynx Overall: oropharyngeal mucosa clear 11/23/2013 None Full Exam - General 1995 Ears/Nose/Throat oral cavity/pharynx/larynx Overall: no masses 11/23/2013 [...] sounds 10/18/2013 None Full Exam - General 1995 Cardiovascular auscultation of heart Overall: no murmurs 10/18/2013 None Full Exam - General 1995 Neurologic cranial nerves Overall: crainial nerves 2 - 12 grossly intact 10/18/2013 None Full Exam - General 1995 Psychiatric orientation/consciousness Overall: oriented to person, place and time 10/18/2013 None Full Exam - General 1995 Psychiatric mood and affect Overall: normal mood and affect 10/18/2013 None Full Exam - General 1995 Psychiatric mood and affect Mood: happy 10/18/2013 None Full Exam - General 1995 Abdomen abdominal exam Overall: no tenderness 10/18/2013 None Full Exam - General 1995 Abdomen abdominal exam Bowel sounds: hyperactive 10/18/2013 None Full Exam - General 1995 Constitutional general appearance Overall: well developed 08/30/2013 [...] nourished 06/21/2013 None Full Exam - General 1995 Constitutional general appearance Overall: well developed 06/21/2013 None Full Exam - General 1995 Constitutional [...] clear 05/31/2013 None Full Exam - General 1995 Ears/Nose/Throat oral cavity/pharynx/larynx Overall: oropharyngeal mucosa clear 05/31/2013 None Full Exam - General 1995 Ears/Nose/Throat oral cavity/pharynx/larynx Overall: no masses 05/31/2013 None Procedures Procedure Codes Date PRESCRIP TRANSMIT VIA ERX SY CPT-4: G8553 10/11/2017 PPPS, SUBSEQ VISIT CPT -4: G0439 08/03/2017 PRESCRIP TRANSMIT VIA ERX SY CPT-4: G8553 08/02/2017 THER/PROPH/DIAG INJ SC/IM CPT-4: 01234 07/12/2017 TRIAMCINOLONE ACET INJ NOS CPT-4: J3301 07/12/2017 PRESCRIP TRANSMIT VIA ERX SY CPT-4: G8553 01/19/2017 TRIAMCINOLONE ACET INJ NOS CPT-4: J3301 10/05/2016 TRIAMCINOLONE ACET INJ NOS CPT-4: J3301 04/14/2016 THER/PROPH/DIAG INJ SC/IM CPT-4: 94932 04/14/2016 THER/PROPH/DIAG INJ SC/IM CPT-4: 91848 02/14/2015 TRIAMCINOLONE ACET INJ NOS CPT-4: J3301 02/14/2015 ROCEPHIN, PER 250 MG CPT-4: J0696 02/14/2015 ROUTINE VENIPUNCTURE CPT-4: 31962 12/25/2013 URINALYSIS NONAUTO W/O SCOPE CPT-4: 99907 12/04/2013 ROUTINE VENIPUNCTURE CPT-4: 35712 12/04/2013 ROCEPHIN, PER 250 MG CPT-4: J0696 12/04/2013 THER/PROPH/DIAG INJ SC/IM CPT-4: 93295 12/04/2013 PRESCRIP TRANSMIT VIA ERX SY CPT-4: G8553 10/18/2013 PRESCRIP TRANSMIT VIA ERX SY CPT-4: G8553 06/21/2013 PRESCRIP TRANSMIT VIA ERX SY CPT-4: G8553 05/31/2013 Vital Signs Date Vital 12/03/2017 Blood Pressure 1: 142/68 Code : 8480-6 Heart Rate 1: 86 bpm Height: 5'3" SpO2: 94% 10/11/2017 Blood Pressure 1: 128/72 Code : 8480-6 BMI: 26.6 Code : 77648-2 Heart Rate 1 : 94 bpm Height: 5'3" SpO2: 98% Weight: 150 lbs 08/03/2017 Blood Pressure 1: 132/76 Code : 8480-6 BMI: 25.2 Code : 62148-3 Heart Rate 1 : 89 bpm Height: 5'3" SpO2: 97% Waist Measure (cm): 79 cm Weight: 142 lbs 08/02/2017 Blood Pressure 1: 140/58 Code : 8480-6 BMI: 25.2 Code : 84931-1 Heart Rate 1 : 61 bpm Height: 5'3" SpO2: 95% Weight: 142 lbs 07/12/2017 Blood Pressure 1: 126/60 Code : 8480-6 BMI: 25.9 Code : 71251-0 Heart Rate 1 : 84 bpm Height: 5'3" SpO2: 95% Weight: 146 lbs 06/29/2017 Blood Pressure 1: 140/76 Code : 8480-6 Blood Pressure 1: 132/70 Code: 8480-6 BMI: 25.7 Code: 75919-7 Heart Rate 1: 88 bpm Height: 5'3" SpO2: 97% Weight: 145 lbs 06/14/2017 Blood Pressure 1: 122/62 Code : 8480-6 BMI: 25.7 Code : 72886-4 Heart Rate 1 : 80 bpm Height: 5'3" SpO2: 96% Weight: 145 lbs 04/05/2017 Blood Pressure 1: 138/70 Code : 8480-6 BMI: 25.7 Code : 55681-6 Heart Rate 1 : 76 bpm Height: 5'3" SpO2: 96% Weight: 145 lbs 01/19/2017 Blood Pressure 1: 130/60 Code : 8480-6 BMI: 26.9 Code : 46575-3 Heart Rate 1 : 81 bpm Height: 5'3" SpO2: 96% Weight: 153 lbs 10/05/2016 Blood Pressure 1: 128/86 Code : 8480-6 BMI: 27.5 Code : 84868-0 Heart Rate 1 : 78 bpm Height: 5'3" SpO2: 94% Weight: 156 lbs 04/14/2016 Blood Pressure 1: 140/72 Code : 8480-6 BMI: 26.8 Code : 08971-2 Heart Rate 1 : 78 bpm Height: 5'3" SpO2: 94% Weight: 152 lbs 01/13/2016 Blood Pressure 1: 128/68 Code : 8480-6 BMI: 26.4 Code : 62883-2 Heart Rate 1 : 84 bpm Height: 5'3" SpO2: 91% Weight: 150 lbs 10/11/2015 Blood Pressure 1: 138/68 Code : 8480-6 BMI: 26.1 Code : 23851-9 Height: 5'3" Weight: 148 lbs 08/09/2015 Blood Pressure 1: 140/62 Code : 8480-6 BMI: 25.2 Code : 40756-3 Heart Rate 1 : 86 bpm Height: 5'3" SpO2: 97% Weight: 143 lbs 05/24/2015 Blood Pressure 1: 132/68 Code : 8480-6 BMI: 26.1 Code : 29623-4 Heart Rate 1 : 79 bpm Height: 5'3" SpO2: 96% Weight: 148 lbs 04/24/2015 Blood Pressure 1: 168/70 Code : 8480-6 BMI: 26.4 Code : 25308-4 Heart Rate 1 : 75 bpm Height: 5'3" SpO2: 97% Weight: 150 lbs 02/14/2015 Blood Pressure 1: 124/64 Code : 8480-6 BMI: 25.5 Code : 88342-7 Heart Rate 1 : 87 bpm Height: 5'3" SpO2: 97% Temperature: 37.6 (C) / 99.7 (F) Weight: 145 lbs 10/22/2014 Blood Pressure 1: 142/74 Code : 8480-6 Heart Rate 1: 72 bpm Weight: 148 lbs 08/22/2014 Blood Pressure 1: 132/72 Code : 8480-6 BMI: 25.9 Code : 34491-9 Heart Rate 1 : 78 bpm Height: 5'3" Weight: 147 lbs 02/21/2014 Blood Pressure 1: 124/62 Code : 8480-6 BMI: 24.3 Code : 39339-6 Heart Rate 1 : 64 bpm Height: 5'3" Weight: 138 lbs 12/19/2013 Blood Pressure 1: 124/62 Code : 8480-6 Heart Rate 1: 84 bpm SpO2: 98% Weight: 139 lbs 12/04/2013 Blood Pressure 1: 142/64 Code : 8480-6 Heart Rate 1: 88 bpm Temperature: 36.6 (C) / [age] (F) Weight: 139 lbs 11/23/2013 Blood Pressure 1: 126/68 Code : 8480-6 BMI: 24.0 Code : 81438-9 Heart Rate 1 : 76 bpm Height: [...] Code : 8480-6 BMI: 25.3 Code : 03297-7 Heart Rate 1 : 84 bpm Height: 5'4" Weight: 150 lbs 06/21/2013 Blood Pressure 1: 140/70 Code : 8480-6 Blood Pressure 2: 148/73 Code: 8480-6 BMI: 25.0 Code: 40861-8 Heart Rate 1: 78 bpm Height: 5'4" Weight: 148 lbs 05/31/2013 Blood Pressure 1: 156/92 Code : 8480-6 BMI: 25.0 Code : 03327-5 Heart Rate 1 : 80 bpm Height: [...] Present Encounters Encounter Performer Location Codes Date EST. PATIENT, LEVEL III Diagnosis: Other muscle spasm[ICD10: M62.838] Diagnosis: Pain in left hip[ICD10: M25.552] Diagnosis: Dysuria[ICD10: R30.0] Diagnosis: Weakness[ICD10: R53.1] Diagnosis: Unsteadiness on feet[ICD10: R26.81] [facility] CPT-4: 55929 12/03/2017 16454 EST. PATIENT, LEVEL III Diagnosis: Zoster without complications[ICD10: B02.9] [facility] CPT-4: 75128 10/11/2017 ([id number]) 48544 EST. PATIENT, LEVEL IV Diagnosis: Essential (primary) hypertension[ICD10: I10] Diagnosis: Nonrheumatic aortic (valve) stenosis[ICD10: I35.0] Diagnosis: Other allergic rhinitis[ICD10: J30.89] Donya Carolina MD, [facility] CPT-4: 89719 08/02/2017 99923 EST. PATIENT, LEVEL IV Diagnosis: Other acute sinusitis[ICD10: J01.80] Diagnosis: Other allergic rhinitis[ICD10: J30.89] Diagnosis: Wheezing[ICD10: R06.2] Piper Carolina MD, [facility] CPT-4: 60772 07/12/2017 ([id number]) 65075 EST. PATIENT, LEVEL IV Diagnosis: Nonrheumatic aortic (valve) stenosis[ICD10: I35.0] Diagnosis: Essential (primary) hypertension[ICD10: I10] Donya Carolina MD, [facility] CPT-4: 40528 06/29/2017 ([id number]) 30235 EST. 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 PATIENT, LEVEL III Diagnosis: Allergic rhinitis due to pollen[ICD10: J30.1] Diagnosis: Cough[ICD10: R05] Donya Carolina MD, [facility] CPT-4: 69926 10/05/2016 ([id number]) 16630 EST. PATIENT, LEVEL IV Diagnosis: Essential (primary) hypertension[ICD10: I10] Diagnosis: Gastro-esophageal reflux disease without esophagitis[ICD10: K21.9] Diagnosis: Allergic rhinitis due to pollen[ICD10: J30.1] Diagnosis: Parkinson's disease[ICD10: G20] Donya Carolina MD, [facility] CPT-4: 62972 04/14/2016 ([id number]) 90883 EST. PATIENT, LEVEL IV Diagnosis: Essential (primary) hypertension[ICD10: I10] Diagnosis: Nonrheumatic aortic (valve) stenosis[ICD10: I35.0] Diagnosis: Allergic rhinitis, unspecified[ICD10: J30.9] Donya Carolina MD, [facility] CPT-4: 72548 01/13/2016 ([id number]) 51823 EST. 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 PATIENT, LEVEL IV Diagnosis: Essential (primary) hypertension[ICD10: I10] Diagnosis: Other specified noninfective gastroenteritis and colitis[ICD10: K52.89] Diagnosis: Unspecified hemorrhoids[ICD10: K64.9] Donya Carolina MD, [facility] CPT-4: 19730 08/09/2015 ([id number]) 01981 EST. PATIENT, LEVEL IV Diagnosis: Lumbar back pain[ICD9: 724.2] Diagnosis: Fecal incontinence[ICD9: 787.60] Diagnosis: Numbness of legs[ICD9: 782.0] Diagnosis: Diarrhea[ICD9: 787.91] Salima Carolina MD, [facility] CPT-4: 08753 05/24/2015 ([id number]) 61056 EST. PATIENT, LEVEL IV Diagnosis: ESSENTIAL HYPERTENSION[ICD9: 401.9] Diagnosis: DEPRESSIVE DISORDER NEC[ICD9: 311] Salima Carolina MD, [facility] CPT-4: 63639 04/24/2015 ([id number]) 64553 EST. PATIENT, LEVEL III Diagnosis: ACUTE SINUSITIS[ICD9: 461.9] Diagnosis: COUGH[ICD9: 786.2] Donya Carolina MD, [facility] CPT-4: 06137 02/14/2015 ([id number]) 90842 EST. PATIENT, LEVEL IV Diagnosis: ESSENTIAL HYPERTENSION[ICD9: 401.9] Diagnosis: Depression[ICD9: 311] Diagnosis: Hip pain[ICD9: 719.45] Slaima Carolina MD, [facility] CPT-4: 26531 10/22/2014 ([id number]) 72990 EST. PATIENT, LEVEL IV Diagnosis: ESSENTIAL HYPERTENSION[ICD9: 401.9] Diagnosis: Hip pain[ICD9: 719.45] Diagnosis: Depression[ICD9: 311] Salima Carolina MD [facility] CPT-4: 44457 08/22/2014 ([id number]) 07203 EST. PATIENT, LEVEL IV Diagnosis: ESSENTIAL HYPERTENSION[SNOMED: 65732999] Diagnosis: Renal cyst[ICD9: 753.10] Diagnosis: Constipation - functional[ICD9: 564.09] Salima Carolina MD, [facility] CPT-4: 34356 02/21/2014 ([id number]) 00242 EST. PATIENT, LEVEL III Diagnosis: Nausea and vomiting[ICD9: 787.01] Diagnosis: Diarrhea[ICD9: 787.91] Diagnosis: Renal cyst[ICD9: 753.10] Diagnosis: UTI[ICD9: 599.0] Salima Carolina MD, [facility] CPT-4: 17960 12/19/2013 ([id number]) 87638 EST. PATIENT, LEVEL III Diagnosis: Diarrhea[ICD9: 787.91] Diagnosis: Nausea and vomiting[ICD9: 787.01] Diagnosis: UTI[ICD9: 599.0] Donya Carolina MD, [facility] CPT-4: 94975 12/04/2013 ([id number]) 21051 EST. PATIENT, LEVEL III Diagnosis: ESSENTIAL HYPERTENSION[SNOMED: 48422759] Diagnosis: Abdominal pain[ICD9: 789.00] Salima Carolina MD, [facility] CPT- 4: 85853 11/23/2013 ([id number]) Patient admitted to the hospital from clinic (NO CHARGE) Diagnosis: Diarrhea[ICD9: 787.91] Diagnosis: Abdominal discomfort[ICD9: 789.00] Diagnosis: Nausea and vomiting[ICD9: 787.01] PRETTY Newton MD CPT-4: 24967A 10/31/2013 ([id number]) 37419 EST. PATIENT, LEVEL III Diagnosis: Diarrhea[ICD9: 787.91] PRETTY Newton MD CPT-4: 35907 10/18/2013 ([id number]) 55072 EST. PATIENT, LEVEL III Diagnosis: ESSENTIAL HYPERTENSION[SNOMED: 95998781] PRETTY Newton MD CPT-4: 01317 08/30/2013 ([id number]) 97664 EST. PATIENT, LEVEL III Diagnosis: ESSENTIAL HYPERTENSION[SNOMED: 72659444] PRETTY Newton MD CPT-4: 64143 06/21/2013 ([id number]) 05708 EST. PATIENT, LEVEL III Diagnosis: ESSENTIAL HYPERTENSION[SNOMED: 16772906] Salima Carolina MD [facility] CPT-4: 46796 05/31/2013 Plan of Care Planned Activity Notes [...] as indicated. 12/03/2017 Appointment: Piper Salazar WPtel: [facility] (30 min) Complex 12/03/2017 Patient Education: Patient [...] considered contagious. 10/11/2017 Appointment: Piper Salazar WPtel: [facility] (30 min) Complex 10/11/2017 Patient Education: Patient [...] care surrogate. 08/03/2017 [phone] [facility] - Annual Wellness Visit 08/03/2017 [...] week 08/02/2017 Appointment: Donya Lombardi WPtel: [phone] [phone] (30 min) Complex 08/02/2017 Patient Education: Patient [...] allergy spray. 07/12/2017 [facility]ment[phone] [facility] (15 min) Moderate 07/12/2017 Patient Education: Patient [...] management 06/29/2017 Appointment: Donya Lombardi WPtel: [phone] [phone] (30 min) Complex 06/29/2017 Patient Education: Patient Medication Summary Completed 06/29/2017 Patient Education: Hypertension Completed 06/29/2017 Care Plan: Referral Order SNOMED-CT : 178638830 Pending 06/29/2017 Visit Plan: Hypertension - well [...] with immodium-recommend patient stop digestive support supplement Espuvfozy-gjztwll-qsu claritin Tinea versicolor-restart ketoconazole 04/05/2017 Appointment: Donya Lombardi WPtel[phone] (30 min) Complex 04/05/2017 Patient Education: Patient Medication Summary Completed 04/05/2017 Visit Plan: Diarrhea - start on flagyl - continue with probiotic - call in one week to report on symptoms. 01/19/2017 Appointment: Salima Carolina WPtel: [phone] [facility] (15 min) Moderate 01/19/2017 Patient Education: Patient Medication Summary Completed 01/19/2017 Visit Plan: Allergies -l6tohh-CUN- chronic - recommended pt to use allergy [...] allergy spray. 10/05/2016 Appointment: Donya Lombardi WPtel: [phone] (30 min) Complex 10/05/2016 Patient Education: Patient Medication Summary Completed 10/05/2016 Appointment: Donya Lombardi WPtel: [phone] (30 min) Complex 05/18/2016 Visit Plan: Hypertension [...] symptoms are not improving. Parkinsons-seeing neurologist in [place] 04/14/2016 Patient Education: Patient Medication Summary Completed [...] Aortic stensosi- refer to Dr Holcomb for evaluation-randi is due for echo Allergies - chronic [...] 01/13/2016 Care Plan: Referral Order SNOMED-CT : [id number] Ordered 01/13/2016 Visit Plan: Hypertension - well [...] current medications. 04/24/2015 Appointment: Salima Carolina WPtel: [address] [place], [place] [address] Follow up 04/24/2015 Patient Education: Patient Medication Summary Completed 04/24/2015 Patient Education: Hypertension Completed 04/24/2015 Care Plan: COMPLETE CBC AUTOMATED LOINC : 12369-7 Ordered 04/24/2015 Visit Plan: Sinusitis - Pt [...] uncontrolled. 10/22/2014 Appointment: Follow up 10/22/2014 [facility] [phone] [facility] [facility] 10/22/2014 Patient Education: Patient [...] also benefit from physical therapy. 08/22/2014 Appointment[facility] [phone] [facility] Follow [facility] 08/22/2014 Patient Education: Patient Medication Summary Completed 08/22/2014 Patient Education: Hypertension Completed 08/22/2014 Care Plan: Referral Order SNOMED-CT : [id number] Ordered 08/22/2014 Visit Plan: Hypertension - well controlled - continue with current medications, continue with no added salt diet. Pt has been encouraged to exercise daily. The pt has been advised to call the office if there are any acute concerns about change in blood pressure readings at home. Renal cyst - pt had drained at [facility] - she will go back to Dr. Tran in 3 months - she is wondering about being evaluated by Dr. Schwartz in 3 months instead of going back to [facility]. Constipation - uncontrolled - I have discussed [...] this regimen. 02/21/2014 Appointment: [facility] [phone] [facility] [facility] 02/21/2014 Patient Education: Patient Medication Summary Completed 02/21/2014 Patient Education: Hypertension Completed 02/21/2014 Patient Education: Patient Medication Summary Completed 12/25/2013 Visit Plan: N/V/D-Dr Carolina in to evaluate patient-plan for outpatient IVF x 2 days-clear liquid/bland diet-use lomotil prn diarrhea- call if symptoms do not resolve, or if any worse. Renal ybqh-mrhmy-ltjfs to urologist at [facility] [place]-await culture 12/19/2013 Patient Education: Patient Medication Summary [...] acute infection. 12/04/2013 App[facility]ment: [facility] [phone] [phone] [facility] 12/04/2013 Patient Education: Patient Medication Summary Completed [...] not improving. 11/23/2013 Appointment: Salima Carolina WPtel: [facility] [facility] follow up 11/23/2013 Patient Education: Patient [...] negative cdiff. 10/18/2013 Appointment: Salima Carolina WPtel: [address] [place], [place] [phone] [facility] 10/18/2013 Patient Education: Patient Medication Summary Completed 10/18/2013 Visit Plan: Hypertension - well controlled - continue with current medications, continue with no added salt diet. Pt has been encouraged to exercise daily. The pt has been advised to call the office if there are any acute concerns about change in blood pressure readings at home. 08/30/2013 Appointment: Salima Carolina WPtel: [facility] Follow up 08/30/2013 Patient Education: Patient [...] 50mg. 06/21/2013 Appointment: Salima Carolina WPtel: [phone] [facility] Follow up 06/21/2013 Patient Education: Patient [...] concerns. 05/31/2013 Appointment: Salima Carolina WPtel: [phone] [facility] New Patient 05/31/2013 Patient Education: Patient Medication Summary Completed 05/31/2013 Patient Education: Hypertension Completed 05/31/2013 Referral: Xenia Holcomb Referral Appointment Requested Referral: [facility] WPtel: [address] [place], [place] [phone] Referral Initiated Referral: Anton Alvarado Referral Appointment [...] of plan. Heart murmur -needs echo-will scheduled Aimbxncc-jlzdexg-vfjjsiu to increase probiotics and monitor symptoms-will look [...] change in blood pressure readings at home. Pcdchukz-dymmqvc-QL called in for lomotil and instructed on [...] symptoms are not improving. Parkinsons-seeing neurologist in [place] . Hypertension - uncontrolled - the patient's [...] you don't start feeling better . Allergies -n4bujw-TRS- chronic - recommended pt to use allergy [...] not resolve, or if any worse. Renal dxbq-jmvxf-mmvgw to urologist at [facility]-await culture appt at [facility] on 08/28/14 @ 2:45pm. Hypertension [...] Renal cyst - pt had drained at [facility] - she will go back to Dr. Tran in 3 months - she is wondering about being evaluated by Dr. Schwartz in 3 months instead of going back to [facility]. Constipation - uncontrolled - I have discussed [...] with immodium-recommend patient stop digestive support supplement Mgsxjxqph-agghxtq-giq claritin Tinea versicolor-restart ketoconazole . Hypertension - [...]
--- OUTSIDE RECORDS SUMMARY | 2019-01-04 08:29 | XMS REPORT | CCD ---
Author Author Salima Carolina Organization Salima Carolina MD, [facility] Address [address] [place] [address] Phone Care Team Providers Care Assistant Auditor Name Role Phone PP Unavailable CCM Unavailable Summary Purpose Interface Exchange Insurance Providers Payer name Policy type / Coverage type Covered green party ID Effective Begin Date Effective End Date WPS Medicare Part B Medicare Part B [id number] Unknown Unknown AETNA Medicare Part B [id number] Unknown Unknown Family history Father Diagnosis Age [...] hours [address] [place] Retired Nov 2013 08/22/2014 Marital status Unknown 05/31/[address]: 0765447 Quit over 10 years ago 05/31/[address]: 161559584 Never drinks alcohol 05/31/2013 Has the patient [...] Instructions Zithromax Z-Javier 250 mg tablet RxNorm: 654989 1 Tablet(s) PO UD 10/29/2017 11/02/2017 Inactive triamcinolone acetonide 0.025 % topical cream RxNorm: 1047416 1 Application TOP BID 10/11/2017 No Stop Date Active valacyclovir 1 gram tablet RxNorm: 383186 1 Tablet(s) PO TID 10/17/2017 Inactive ketoconazole 2 % shampoo RxNorm: 595810 1 Application TOP every other day APPLY HEAD TO TOE, LEAVE ON FOR 5 MINUTES THEN RINSE, DO EVERY OTHER DAY X 2 WEEKS, MAY NEED ANOTHER 3RD 09/08/20172016 Inactive hydrochlorothiazide 25 mg tablet RxNorm: 410533 1 Tablet(s) PO daily TAKE 1 TABLET EVERY DAY 08/02/2017 10/25/2018 Active Xyzal 5 mg tablet RxNorm: 757539 1 Tablet(s) PO daily 201608/31/2017 Inactive Keflex 500 mg capsule RxNorm: 495221 1 Capsule(s) PO TID 201607/25/2017 Inactive Keflex 500 mg capsule RxNorm: 840992 1 Capsule(s) PO TID 201607/18/2017 Inactive Kenalog 40 mg/mL suspension for injection RxNorm: 3841624 Milliliter(s) Inj 07/12/2017 07/12/2017 Inactive Zithromax Z-Javier 250 mg tablet RxNorm: 952454 1 Tablet(s) PO UD 07/06/2017 07/10/2017 Inactive amlodipine 5 mg tablet RxNorm: 808567 1 Tablet(s) PO daily 09/23/2018 Active amlodipine 5 mg tablet RxNorm: 835007 1 Tablet(s) PO daily 07/01/2017 Inactive promethazine 25 mg tablet RxNorm: 044694 1 Tablet(s) PO Q6 as needed nausea 01/21/2017 No Stop Date Active Probiotic Colon Support 240 mg (3 billion cell) capsule RxNorm: 1 Capsule(s) PO daily 01/19/2017 No Stop Date Active Flagyl 500 mg tablet RxNorm: 675035 1 Tablet(s) PO TID 201601/25/2017 Inactive prednisone 20 mg tablet RxNorm: 118304 1 Tablet(s) PO BID 11/1011/14/2016 Inactive prednisone 20 mg tablet RxNorm: 197476 1 Tablet(s) PO BID 11/1011/09/2016 Inactive doxycycline hyclate 100 mg tablet RxNorm: 466816 1 Tablet(s) PO BID 11/03/2016 11/02/2016 Inactive doxycycline hyclate 100 mg tablet RxNorm: 097718 1 Tablet(s) PO BID 11/03/2016 11/09/2016 Inactive losartan 50 mg tablet RxNorm: 094908 TAKE 1 TABLET EVERY EVENING 10/27/2016 06/28/2017 Inactive escitalopram 10 mg tablet RxNorm: 052043 TAKE 1 TABLET EVERY EVENING 10/12/2016 06/13/2017 Inactive Kenalog 40 mg/mL suspension for injection RxNorm: 8173827 Milliliter(s) Inj 10/05/2016 10/05/2016 Inactive Zithromax Z-Javier 250 mg tablet RxNorm: 941224 1 Tablet(s) PO UD 07/15/2016 01/18/2017 Inactive z pack as directed amlodipine 5 mg tablet RxNorm: 563848 1 Tablet(s) TAKE 1 TABLET TWICE DAILY 06/23/2016 06/28/2017 Inactive hydrochlorothiazide 25 mg tablet RxNorm: 918684 1 Tablet(s) PO daily TAKE 1 TABLET EVERY DAY 06/23/2016 08/01/2017 Inactive Kenalog 40 mg/mL suspension for injection RxNorm: 2816401 Milliliter(s) Inj 04/14/2016 04/14/2016 Inactive omeprazole 20 mg capsule,delayed release RxNorm: 110654 1 Capsule(s) PO daily 04/14/2016 10/04/2016 Inactive losartan 50 mg tablet RxNorm: 203911 1 Tablet(s) PO QPM 201410/11/2016 Inactive amlodipine 5 mg tablet RxNorm: 779430 TAKE 1 TABLET TWICE DAILY 09/16/2015 06/11/2016 Inactive Lomotil 2.5 mg-0.025 mg tablet RxNorm: 2125855 1 Tablet(s) PO PRN take 1 tab after each loose stool max of 8 tabs per day 08/16/2015 01/12/2016 Inactive one after each loose bm. limit 8 per day hydrocortisone 2.5 % rectal cream RxNorm: 607046 1 Application RTL BID PRN 08/09/2015 10/07/2015 Inactive hydrochlorothiazide 25 mg tablet RxNorm: 603088 1 Tablet(s) PO daily TAKE 1 TABLET EVERY DAY 07/02/2015 06/22/2016 Inactive escitalopram 10 mg tablet RxNorm: 795895 1 Tablet(s) PO QPM 11/201403/27/2016 Inactive amlodipine 5 mg tablet RxNorm: 571942 1 Tablet(s) PO BID 201409/15/2015 Inactive Kenalog 40 mg/mL suspension for injection RxNorm: 5764747 Milliliter(s) Inj 02/14/2015 02/14/2015 Inactive [SAVINGS FOR NON-COVERED DRUGS -- BIN:556023, PCN: ASPROD1, Group: XXXXX, ID# XXXXXXX, Questions: . THIS IS NOT INSURANCE.] Flonase Allergy Relief 50 mcg/actuation nasal spray, suspension RxNorm: 2 [place] NASAL daily 02/14/2015 04/14/2015 Inactive [SAVINGS FOR NON-COVERED DRUGS -- BIN:638446, PCN: ASPROD1, Group: XXXXX, ID# XXXXXXX, Questions: [phone]. THIS IS NOT INSURANCE.] cefdinir 300 mg capsule RxNorm: 837102 1 Capsule(s) PO BID 02/20/2015 Inactive [SAVINGS FOR NON-COVERED DRUGS -- BIN:198062, PCN: ASPROD1, Group: XXXXX, ID# [id number], Questions: . THIS IS NOT INSURANCE.] ceftriaxone 500 mg solution for injection RxNorm: 3550472 Inj 02/14/2015 02/14/2015 Inactive [SAVINGS FOR NON-COVERED DRUGS -- BIN:177686, PCN: ASPROD1, Group: XXXXX, ID# [id number], Questions: . THIS IS NOT INSURANCE.] hydrochlorothiazide 25 mg tablet RxNorm: 255699 TAKE 1 TABLET EVERY DAY 11/06/2014 07/01/2015 Inactive hydrochlorothiazide 25 mg tablet RxNorm: 012935 1/2 Tablet(s) PO daily 11/06/2014 11/05/2014 Inactive [SAVINGS FOR UNINSURED PATIENTS -- BIN:921350, PCN: ASPROD1, Group: [id number], ID# [id number], Process claim through [email or web address], for questions: [phone]. THIS IS NOT INSURANCE.] escitalopram 10 mg tablet RxNorm: 312197 1 Tablet(s) PO QPM 07/01/2015 Inactive hydrochlorothiazide 25 mg tablet RxNorm: 944911 1/2 Tablet(s) PO daily 10/22/2014 11/05/2014 Inactive losartan 50 mg tablet RxNorm: 537339 1 Tablet(s) PO QPM 201308/16/2015 Inactive amlodipine 5 mg tablet RxNorm: 871652 1 Tablet(s) PO BID 201307/01/2015 Inactive escitalopram 10 mg tablet RxNorm: 004674 1 Tablet(s) PO QPM 08/21/2014 Inactive escitalopram 10 mg tablet RxNorm: 368890 1 Tablet(s) PO QPM 10/21/2014 Inactive Probiotic Colon Support 240 mg (3 billion cell) capsule RxNorm: 1 Capsule(s) PO BID 02/21/2014 02/15/2015 Inactive Lomotil 2.5 mg-0.025 mg tablet RxNorm: 3337834 1 Tablet(s) PO take 1 tab after each loose stool max of 8 tabs per day 12/22/2013 08/15/2015 Inactive one after each loose bm. limit 8 per day nitrofurantoin 100 mg capsule RxNorm: 132306 1/2 Tablet(s) PO BID 12/22/2013 12/28/2013 Inactive nitrofurantoin 100 mg capsule RxNorm: 591211 1/2 Tablet(s) PO BID 12/22/2013 12/21/2013 Inactive Zofran 4 mg tablet RxNorm: 045082 1 Tablet(s) PO Q6 PRN 12/20 No Stop Date Active Reglan 5 mg tablet RxNorm: 184880 1 Tablet(s) PO BID 201301/17/2014 Inactive potassium chloride ER 10 mEq tablet,extended release RxNorm: 780618 1 Tablet(s) PO daily 12/05/2013 01/12/2016 Inactive Zofran 4 mg tablet RxNorm: 690090 1 Tablet(s) PO Q6 PRN 12/0512/04/2013 Inactive Zofran 4 mg tablet RxNorm: 501457 1 Tablet(s) PO Q6 PRN 12/0512/19/2013 Inactive Rocephin 500 mg solution for injection RxNorm: 551655 1 Milliliter(s) Inj 12/04/2013 12/04/2013 Inactive Bactrim DS 800 mg-160 mg tablet RxNorm: 019801 1 Tablet(s) PO BID 12/04/2013 12/10/2013 Inactive Fish Oil 360 mg-1,200 mg capsule,delayed release RxNorm: 1 Capsule(s) PO daily 11/23/2013 01/12/2016 Inactive Calcium Antacid Ultra Max St 400 mg (1,000 mg) chewable tablet RxNorm: 638454 1 Tablet(s) PO TID 11/23/2013 01/12/2016 Inactive Probiotic Complex 100 mg-500 mg-50 mg capsule RxNorm: 886759 1 Capsule(s) PO BID 11/23/2013 10/22/2014 Inactive metronidazole 500 mg tablet RxNorm: 352919 1 Tablet(s) PO TID 10/26/2013 11/04/2013 Inactive metronidazole 500 mg tablet RxNorm: 645078 1 Tablet(s) PO TID 10/18/2013 10/25/2013 Inactive hydrochlorothiazide 25 mg tablet RxNorm: 802263 1 Tablet(s) PO daily 10/11/2013 10/05/2014 Inactive amlodipine 5 mg tablet RxNorm: 303075 1 Tablet(s) PO BID 201208/21/2014 Inactive losartan 50 mg tablet RxNorm: 102068 1 Tablet(s) PO QPM 201208/21/2014 Inactive hydrochlorothiazide 25 mg tablet RxNorm: 570171 1 Tablet(s) PO daily 07/25/2013 10/10/2013 Inactive hydrochlorothiazide 25 mg tablet RxNorm: 135587 1 Tablet(s) PO daily 06/21/2013 07/24/2013 Inactive losartan 50 mg tablet RxNorm: 344576 1 Tablet(s) PO QPM 201210/10/2013 Inactive ketoconazole 2 % Shampoo RxNorm: 534406 1 Application TOP every other day APPLY HEAD TO TOE, LEAVE ON FOR 5 MINUTES THEN RINSE, DO EVERY OTHER DAY X 2 WEEKS, MAY NEED ANOTHER 3RD 05/31/20132012 Inactive multivitamin capsule RxNorm: 1 Capsule(s) PO No Start Date Active aspirin 81 mg tablet RxNorm: 571967 1 Tablet(s) PO daily No Start Date Active Lutein Vison Formula oral RxNorm: 26647 oral No Start Date Active magnesium 200 mg tablet RxNorm: 1 Tablet(s) PO BID No Start Date Active Fish Oil 360 mg-1,200 mg capsule RxNorm: 596611 1 Capsule(s) PO BID No Start Date Active Vitamin D3 2,000 unit capsule RxNorm: 570872 1 Capsule(s) PO daily No Start Date Active melatonin 5 mg tablet RxNorm: 561859 1 Tablet(s) PO QHS No Start Date Active ubiquinone oral RxNorm : 36313 oral No Start Date Active Vitamin B-12 5,000 mcg/mL sublingual drops RxNorm: 4338111 1 Milliliter(s) SL daily No Start Date Active promethazine 25 mg tablet RxNorm: 585232 1 Tablet(s) PO Q6 as needed nausea No Start Date 01/20/2017 Inactive Lomotil 2.5 mg-0.025 mg tablet RxNorm: 7825546 1 Tablet(s) PO No Start Date 12/21/2013 Inactive one after each loose bm. limit 8 per day potassium 99 mg tablet RxNorm: 1 Tablet(s) PO daily No Start Date 02/20/2014 Inactive potassium chloride ER 10 mEq tablet,extended release RxNorm: 722929 1 Tablet(s) PO daily No Start Date 12/04/2013 Inactive promethazine 25 mg tablet RxNorm: 387089 1 Tablet(s) PO Q6 PRN No Start Date 10/22/2014 Inactive krill 500 mg-omega-3 150 mg-dha 45 mg-epa 75 mg-phospho- astax capsule RxNorm: 1 Capsule(s) PO daily No Start Date 2016 Inactive Zithromax Z-Javier oral RxNorm: oral No Start Date 07/05/2017 Inactive potassium chloride ER 20 mEq tablet,extended release(part/ cryst) RxNorm: 217606 oral No Start Date 12/04/2013 Inactive PreserVision AREDS 2 250 mg-2.5 mg-0.5 mg capsule RxNorm: 1 Capsule(s) PO BID No Start Date 01/12/2016 Inactive thyroid Oral RxNorm: Oral No Start Date Inactive Zithromax Z-Javier 250 mg tablet RxNorm: 859217 1 Tablet(s) PO UD No Start Date 07/14/2016 Inactive z pack as directed Fish Oil 360 mg-1,200 mg capsule,delayed release RxNorm: Oral No Start Date 11/22/2013 Inactive Probiotic Complex 100 mg-500 mg-50 mg capsule RxNorm: 853917 1 Capsule(s) PO daily No Start Date 11/22/2013 Inactive Super B [id number] tablet RxNorm: 1 Tablet(s) PO daily No Start Date 01/18/2017 Inactive Calcium Antacid Ultra Max St 400 mg (1,000 mg) chewable tablet RxNorm: 357890 1 PO No Start Date 11/22/2013 Inactive hydrochlorothiazide 25 mg tablet RxNorm: 903671 2 Tablet(s) PO daily No Start Date 06/20/2013 Inactive amlodipine 5 mg tablet RxNorm: 545092 1 Tablet(s) PO BID No Start Date 10/10/2013 Inactive Vitamin D3 2,000 unit capsule RxNorm: 219509 1 Capsule(s) PO daily No Start Date 01/12/2016 Inactive Medication Administered Medication Codes Instructions Start Date Status Kenalog 40 mg/mL suspension for injection RxNorm: 7342599 Milliliter 07/12/2017 No longer Active Kenalog 40 mg/mL suspension for injection RxNorm: 8398519 Milliliter 10/05/2016 No longer Active Kenalog 40 mg/mL suspension for injection RxNorm: 5926324 Milliliter 04/14/2016 No longer Active Kenalog 40 mg/mL suspension for injection RxNorm: 1661038 Milliliter 02/14/2015 No longer Active ceftriaxone 500 mg solution for injection RxNorm: 9368893 02/14/2015 No longer Active Rocephin 500 mg solution for injection RxNorm: 808042 1Milliliter 12/04/2013 No longer Active Immunizations Vaccine [...] hTSH II 1.10 uIU/mL 04/05/2017 Comp Metabolic Qnm195 NA 138 mEq/L 04/05/2017 Comp Metabolic Mcs914 K 3.8 mEq/L 04/05/2017 Comp Metabolic Wdn552 CL 98 mEq/L 04/05/2017 Comp Metabolic Bnl523 CO2 31.0 mEq/L 04/05/2017 Comp Metabolic Wbc478 ANION GAP 13 04/05/2017 Comp Metabolic Rht851 GLUCOSE 83 mg/dL 04/05/2017 Comp Metabolic Maw588 Creat 0.9 mg/dL 04/05/2017 Comp Metabolic Onf019 eGFR 64 ml/min/1.73m2 04/05/2017 Comp Metabolic Vdb259 BUN 11 mg/dL 04/05/2017 Comp Metabolic Dba449 B/C Ratio 12.2 Ratio 04/05/2017 Comp Metabolic Xzz105 CALCIUM 8.9 mg/dL 04/05/2017 Comp Metabolic Pyl503 ALK PHOS 58 U/L 04/05/2017 Comp Metabolic Pxi849 AST(SGOT) 15 U/L 04/05/2017 Comp Metabolic Lwb956 ALT(SGPT) 14 U/L 04/05/2017 Comp Metabolic Ehc205 BILI T 0.9 mg/dL 04/05/2017 Comp Metabolic Dlv671 ALBUMIN 4.1 g/dL 04/05/2017 Comp Metabolic Ogy063 TPRO 6.2 g/dL 04/05/2017 Comp Metabolic Cof443 GLOB 2.2 g/dL 04/05/2017 Comp Metabolic Fcp587 A/G Ratio 1.9 Ratio 04/05/2017 Comp Metabolic Fjm471 Osmo 274 mOsmo 04/05/2017 Cbc With Differential [...] 77.0 fl 04/05/2017 Cbc With Differential Ord2 [place]% 8.3 % 04/05/2017 Cbc With Differential Ord2 [...] 1.28 K/ul 04/05/2017 Cbc With Differential Ord2 [place] ABS# 0.5 K/ul 04/05/2017 Cbc With Differential [...] Ord15 CALCIUM 9.3 mg/dL 08/27/2016 Comp Metabolic Gta875 NA 138 mEq/L 10/11/2015 Comp Metabolic Rde312 K 3.8 mEq/L 10/11/2015 Comp Metabolic Uuc929 CL 98 mEq/L 10/11/2015 Comp Metabolic Yvx478 CO2 29.0 mEq/L 10/11/2015 Comp Metabolic Fhi103 ANION GAP 15 10/11/2015 Comp Metabolic Dxt976 GLUCOSE 76 mg/dL 10/11/2015 Comp Metabolic Edn497 Creat 0.9 mg/dL 10/11/2015 Comp Metabolic Lrj123 eGFR 68 ml/min/1.73m2 10/11/2015 Comp Metabolic Rce371 BUN 14 mg/dL 10/11/2015 Comp Metabolic Urq127 B/C Ratio 16.3 Ratio 10/11/2015 Comp Metabolic Mij025 CALCIUM 9.7 mg/dL 10/11/2015 Comp Metabolic Tjx879 ALK PHOS 73 U/L 10/11/2015 Comp Metabolic Ieh841 AST(SGOT) 16 U/L 10/11/2015 Comp Metabolic Aly437 ALT(SGPT) 14 U/L 10/11/2015 Comp Metabolic Mnn411 BILI T 0.8 mg/dL 10/11/2015 Comp Metabolic Zhh770 ALBUMIN 4.6 g/dL 10/11/2015 Comp Metabolic Gvv466 TPRO 7.1 g/dL 10/11/2015 Comp Metabolic Fyc717 GLOB 2.5 g/dL 10/11/2015 Comp Metabolic Quc917 A/G Ratio 1.8 Ratio 10/11/2015 Comp Metabolic Mst786 Osmo 275 mOsmo 10/11/2015 Cbc With Differential [...] hTSH II 1.70 uIU/mL 10/11/2015 Comp Metabolic Xnt000 NA 130 mEq/L 08/09/2015 Comp Metabolic Gxa173 K 3.6 mEq/L 08/09/2015 Comp Metabolic Iem706 CL 94 mEq/L 08/09/2015 Comp Metabolic Ujw504 CO2 30.0 mEq/L 08/09/2015 Comp Metabolic App314 ANION GAP 10 08/09/2015 Comp Metabolic Lza975 GLUCOSE 156 mg/dL 08/09/2015 Comp Metabolic Hkr954 Creat 0.9 mg/dL 08/09/2015 Comp Metabolic Hke583 eGFR 67 ml/min/1.73m2 08/09/2015 Comp Metabolic Rvn097 BUN 23 mg/dL 08/09/2015 Comp Metabolic Pjx923 B/C Ratio 26.4 Ratio 08/09/2015 Comp Metabolic Hmj280 CALCIUM 9.6 mg/dL 08/09/2015 Comp Metabolic Ygt867 ALK PHOS 95 U/L 08/09/2015 Comp Metabolic Clt269 AST(SGOT) 12 U/L 08/09/2015 Comp Metabolic Mhq631 ALT(SGPT) 12 U/L 08/09/2015 Comp Metabolic Qpi357 BILI T 0.7 mg/dL 08/09/2015 Comp Metabolic Bsd429 ALBUMIN 4.1 g/dL 08/09/2015 Comp Metabolic Mmf555 TPRO 6.4 g/dL 08/09/2015 Comp Metabolic Env121 GLOB 2.3 g/dL 08/09/2015 Comp Metabolic Pcw179 A/G Ratio 1.8 Ratio 08/09/2015 Comp Metabolic Wpa946 Osmo 268 mOsmo 08/09/2015 Cbc With Differential [...] Ord2 RDW 14.0 % 08/09/2015 CHEM 14 4148918 AST 14 U/L 12/25/2013 CHEM 14 20280505 ALT 17 IU/L 12/25/2013 CHEM 14 9499041 BUN 8 MG/DL 12/25/2013 CHEM 14 3483937 ALBUMIN 4.1 GM/DL 12/25/2013 CHEM 14 9889893 CHLORIDE 98 MMOL/L 12/25/2013 CHEM 14 2182301 BILI TOT 0.9 MG/DL 12/25/2013 CHEM 14 3518680 ALK PHOS 55 U/L 12/25/2013 CHEM 14 9959218 SODIUM 133 MMOL/L 12/25/2013 CHEM 14 5761544 CREATININE 0.86 MG/DL 12/25/2013 CHEM 14 1421053 CALCIUM 9.2 MG/DL 12/25/2013 CHEM 14 0706294 POTASSIUM 3.9 MMOL/L 12/25/2013 CHEM 14 8371361 PROT TOT 6.1 GM/DL 12/25/2013 CHEM 14 3224434 GLUCOSE 95 MG/DL 12/25/2013 CHEM 14 9773092 BICARB 29 MMOL/L 12/25/2013 CHEM 14 3435496 ANION GAP 6 MEQ/L 12/25/2013 GFR CALC 1018192 GFR AA >60 ML/MIN 12/25/2013 GFR CALC 3547642 GFR NON-AA >60 ML/MIN 12/25/2013 LIPASE 5775298 LIPASE 17 IU/L 12/05/2013 AMYLASE 0627288 AMYLASE 49 IU/L 12/05/2013 CHEM 14 3799132 AST 16 U/L 12/04/2013 CHEM 14 9969833 ALT 14 IU/L 12/04/2013 CHEM 14 9369756 BUN 18 MG/DL 12/04/2013 CHEM 14 4549227 ALBUMIN 4.6 GM/DL 12/04/2013 CHEM 14 8921466 CHLORIDE 99 MMOL/L 12/04/2013 CHEM 14 6487027 BILI TOT 1.5 MG/DL 12/04/2013 CHEM 14 9387893 ALK PHOS 60 U/L 12/04/2013 CHEM 14 6223615 SODIUM 134 MMOL/L 12/04/2013 CHEM 14 2411041 CREATININE 0.92 MG/DL 12/04/2013 CHEM 14 9139370 CALCIUM 9.7 MG/DL 12/04/2013 CHEM 14 7675996 POTASSIUM 3.4 MMOL/L 12/04/2013 CHEM 14 4111980 PROT TOT 6.9 GM/DL 12/04/2013 CHEM 14 3706332 GLUCOSE 105 MG/DL 12/04/2013 CHEM 14 4932308 BICARB 27 MMOL/L 12/04/2013 CHEM 14 9639869 ANION GAP 8 MEQ/L 12/04/2013 GFR CALC 0804609 GFR AA >60 ML/MIN 12/04/2013 GFR CALC 4484256 GFR NON-AA 59.0L ML/MIN 12/04/2013 URINALYSIS NONAUTO W/O SCOPE 04390 Specific [place] 1.015 DateTime(Free Text in Apr[employer]) URINALYSIS NONAUTO W/O SCOPE 03672 PH 6.0 DateTime(Free Text in [employer]) URINALYSIS NONAUTO W/O SCOPE 55974 GLUCOSE neg DateTime( Free Text in [employer]) URINALYSIS NONAUTO W/O SCOPE 81197 Protein neg DateTime( Free Text in [employer]) URINALYSIS NONAUTO W/O SCOPE 27250 Blood neg DateTime(Free Text in [employer]) URINALYSIS NONAUTO W/O SCOPE 95971 Bilirubin neg DateTime(Free Text in [employer]) URINALYSIS NONAUTO W/O SCOPE 91267 Ketones neg DateTime( Free Text in [employer]) URINALYSIS NONAUTO W/O SCOPE 76121 Urobilinogen neg DateTime(Free Text in [employer]) URINALYSIS NONAUTO W/O SCOPE 36859 Nitrite 2+ DateTime( Free Text in [employer]) URINALYSIS NONAUTO W/O SCOPE 12014 Leukocytes DateTime( Free Text in Apr) Review [...] CPT-4: G8553 08/02/2017 THER/PROPH/DIAG INJ SC/IM CPT-4: 48261 07/12/2017 TRIAMCINOLONE ACET INJ NOS CPT-4: J3301 07/12/2017 PRESCRIP TRANSMIT VIA ERX SY CPT-4: G8553 01/19/2017 TRIAMCINOLONE ACET INJ NOS CPT-4: J3301 10/05/2016 TRIAMCINOLONE ACET INJ NOS CPT-4: J3301 04/14/2016 THER/PROPH/DIAG INJ SC/IM CPT-4: 61941 04/14/2016 THER/PROPH/DIAG INJ SC/IM CPT-4: 69226 02/14/2015 TRIAMCINOLONE ACET INJ NOS CPT-4: J3301 02/14/2015 ROCEPHIN, PER 250 MG CPT-4: J0696 02/14/2015 ROUTINE VENIPUNCTURE CPT-4: 74805 12/25/2013 URINALYSIS NONAUTO W/O SCOPE CPT-4: 13403 12/04/2013 ROUTINE VENIPUNCTURE CPT-4: 93813 12/04/2013 ROCEPHIN, PER 250 MG CPT-4: J0696 12/04/2013 THER/PROPH/DIAG INJ SC/IM CPT-4: 77840 12/04/2013 PRESCRIP TRANSMIT VIA ERX SY CPT-4: G8553 10/18/2013 PRESCRIP TRANSMIT VIA ERX SY CPT-4: G8553 06/21/2013 PRESCRIP TRANSMIT VIA ERX SY CPT-4: G8553 05/31/2013 Vital Signs Date Vital 12/03/2017 Blood Pressure 1: 142/68 Code : 8480-6 Heart Rate 1: 86 bpm Height: 5'3" SpO2: 94% 10/11/2017 Blood Pressure 1: 128/72 Code : 8480-6 BMI: 26.6 Code : 29558-3 Heart Rate 1 : 94 bpm Height: 5'3" SpO2: 98% Weight: 150 lbs 08/03/2017 Blood Pressure 1: 132/76 Code : 8480-6 BMI: 25.2 Code : 52039-9 Heart Rate 1 : 89 bpm Height: 5'3" SpO2: 97% Waist Measure (cm): 79 cm Weight: 142 lbs 08/02/2017 Blood Pressure 1: 140/58 Code : 8480-6 BMI: 25.2 Code : 30153-0 Heart Rate 1 : 61 bpm Height: 5'3" SpO2: 95% Weight: 142 lbs 07/12/2017 Blood Pressure 1: 126/60 Code : 8480-6 BMI: 25.9 Code : 60189-2 Heart Rate 1 : 84 bpm Height: 5'3" SpO2: 95% Weight: 146 lbs 06/29/2017 Blood Pressure 1: 140/76 Code : 8480-6 Blood Pressure 1: 132/70 Code: 8480-6 BMI: 25.7 Code: 05575-2 Heart Rate 1: 88 bpm Height: 5'3" SpO2: 97% Weight: 145 lbs 06/14/2017 Blood Pressure 1: 122/62 Code : 8480-6 BMI: 25.7 Code : 20263-6 Heart Rate 1 : 80 bpm Height: 5'3" SpO2: 96% Weight: 145 lbs 04/05/2017 Blood Pressure 1: 138/70 Code : 8480-6 BMI: 25.7 Code : 15159-2 Heart Rate 1 : 76 bpm Height: 5'3" SpO2: 96% Weight: 145 lbs 01/19/2017 Blood Pressure 1: 130/60 Code : 8480-6 BMI: 26.9 Code : 24601-1 Heart Rate 1 : 81 bpm Height: 5'3" SpO2: 96% Weight: 153 lbs 10/05/2016 Blood Pressure 1: 128/86 Code : 8480-6 BMI: 27.5 Code : 36176-5 Heart Rate 1 : 78 bpm Height: 5'3" SpO2: 94% Weight: 156 lbs 04/14/2016 Blood Pressure 1: 140/72 Code : 8480-6 BMI: 26.8 Code : 92212-9 Heart Rate 1 : 78 bpm Height: 5'3" SpO2: 94% Weight: 152 lbs 01/13/2016 Blood Pressure 1: 128/68 Code : 8480-6 BMI: 26.4 Code : 61139-7 Heart Rate 1 : 84 bpm Height: 5'3" SpO2: 91% Weight: 150 lbs 10/11/2015 Blood Pressure 1: 138/68 Code : 8480-6 BMI: 26.1 Code : 21955-0 Height: 5'3" Weight: 148 lbs 08/09/2015 Blood Pressure 1: 140/62 Code : 8480-6 BMI: 25.2 Code : 51700-9 Heart Rate 1 : 86 bpm Height: 5'3" SpO2: 97% Weight: 143 lbs 05/24/2015 Blood Pressure 1: 132/68 Code : 8480-6 BMI: 26.1 Code : 07276-1 Heart Rate 1 : 79 bpm Height: 5'3" SpO2: 96% Weight: 148 lbs 04/24/2015 Blood Pressure 1: 168/70 Code : 8480-6 BMI: 26.4 Code : 57657-4 Heart Rate 1 : 75 bpm Height: 5'3" SpO2: 97% Weight: 150 lbs 02/14/2015 Blood Pressure 1: 124/64 Code : 8480-6 BMI: 25.5 Code : 85243-1 Heart Rate 1 : 87 bpm Height: 5'3" SpO2: 97% Temperature: 37.6 (C) / 99.7 (F) Weight: 145 lbs 10/22/2014 Blood Pressure 1: 142/74 Code : 8480-6 Heart Rate 1: 72 bpm Weight: 148 lbs 08/22/2014 Blood Pressure 1: 132/72 Code : 8480-6 BMI: 25.9 Code : 39791-5 Heart Rate 1 : 78 bpm Height: 5'3" Weight: 147 lbs 02/21/2014 Blood Pressure 1: 124/62 Code : 8480-6 BMI: 24.3 Code : 39228-9 Heart Rate 1 : 64 bpm Height: 5'3" Weight: 138 lbs 12/19/2013 Blood Pressure 1: 124/62 Code : 8480-6 Heart Rate 1: 84 bpm SpO2: 98% Weight: 139 lbs 12/04/2013 Blood Pressure 1: 142/64 Code : 8480-6 Heart Rate 1: 88 bpm Temperature: 36.6 (C) / 97.8 (F) Weight: 139 lbs 11/23/2013 Blood Pressure 1: 126/68 Code : 8480-6 BMI: 24.0 Code : 76991-7 Heart Rate 1 : 76 bpm Height: [...] Code : 8480-6 BMI: 25.3 Code : 09317-5 Heart Rate 1 : 84 bpm Height: 5'4" Weight: 150 lbs 06/21/2013 Blood Pressure 1: 140/70 Code : 8480-6 Blood Pressure 2: 148/73 Code: 8480-6 BMI: 25.0 Code: 37644-6 Heart Rate 1: 78 bpm Height: 5'4" Weight: 148 lbs 05/31/2013 Blood Pressure 1: 156/92 Code : 8480-6 BMI: 25.0 Code : 53466-4 Heart Rate 1 : 80 bpm Height: [...] Present Encounters Encounter Performer Location Codes Date 19990 EST. PATIENT, LEVEL III Diagnosis: Other muscle spasm[ICD10: M62.838] Diagnosis: Pain in left hip[ICD10: M25.552] Diagnosis: Dysuria[ICD10: R30.0] Piper Carolina MD, [facility] CPT-4: 58256 12/03/2017 [id number] EST. PATIENT, LEVEL III Diagnosis: Zoster without complications[ICD10: B02.9] Piper Carolina MD, [facility] CPT-4: 39952 10/11/2017 ([id number]) [id number] EST. PATIENT, LEVEL IV Diagnosis: Essential (primary) hypertension[ICD10: I10] Diagnosis: Nonrheumatic aortic (valve) stenosis[ICD10: I35.0] Diagnosis: Other allergic rhinitis[ICD10: J30.89] Donya Carolina MD, [facility] CPT-4: 39751 08/02/2017 [id number] EST. PATIENT, LEVEL IV Diagnosis: Other acute sinusitis[ICD10: J01.80] Diagnosis: Other allergic rhinitis[ICD10: J30.89] Diagnosis: Wheezing[ICD10: R06.2] Piper Carolina MD, [facility] CPT-4: 44761 07/12/2017 [id number]) [id number] EST. PATIENT, LEVEL IV Diagnosis: Nonrheumatic aortic (valve) stenosis[ICD10: I35.0] Diagnosis: Essential (primary) hypertension[ICD10: I10] Donya Carolina MD, [facility] CPT-4: 19270 06/29/2017 [id number]) [id number] EST. PATIENT, LEVEL IV Diagnosis: Essential (primary) hypertension[ICD10: I10] Diagnosis: Functional diarrhea[ICD10: K59.1] Diagnosis: Nausea[ICD10: R11.0] Donya Carolina MD, [facility] CPT-4: 92838 06/14/2017 [id number] EST. 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 PATIENT, LEVEL III Diagnosis: Functional diarrhea[ICD10: K59.1] Diagnosis: Nausea[ICD10: R11.0] Salima Carolina MD, [facility] CPT-4: 75248 01/19/2017 ([id number]) 49799 EST. PATIENT, LEVEL III Diagnosis: Allergic rhinitis due to pollen[ICD10: J30.1] Diagnosis: Cough[ICD10: R05] Donya Carolina MD, [facility] CPT-4: 57917 10/05/2016 ([id number]) 66697 EST. 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 PATIENT, LEVEL IV Diagnosis: Essential (primary) hypertension[ICD10: I10] Diagnosis: Nonrheumatic aortic (valve) stenosis[ICD10: I35.0] Diagnosis: Allergic rhinitis, unspecified[ICD10: J30.9] Donya Carolina MD, [facility] CPT-4: 62904 01/13/2016 ([id number]) 34313 EST. 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 PATIENT, LEVEL IV Diagnosis: Essential (primary) hypertension[ICD10: I10] Diagnosis: Other specified noninfective gastroenteritis and colitis[ICD10: K52.89] Diagnosis: Unspecified hemorrhoids[ICD10: K64.9] Donya Carolina MD, [facility] CPT-4: 94466 08/09/2015 ([id number]) 89861 EST. PATIENT, LEVEL IV Diagnosis: Lumbar back pain[ICD9: 724.2] Diagnosis: Fecal incontinence[ICD9: 787.60] Diagnosis: Numbness of legs[ICD9: 782.0] Diagnosis: Diarrhea[ICD9: 787.91] Salima Carolina MD [facility] CPT-4: 30942 05/24/2015 ([id number]) 90436 EST. PATIENT, LEVEL IV Diagnosis: ESSENTIAL HYPERTENSION[ICD9: 401.9] Diagnosis: DEPRESSIVE DISORDER NEC[ICD9: 311] Salima Carolina MD, [facility] CPT-4: 66200 04/24/2015 ([id number]) 57123 EST. PATIENT, LEVEL III Diagnosis: ACUTE SINUSITIS[ICD9: 461.9] Diagnosis: COUGH[ICD9: 786.2] Donya Carolina MD [facility] CPT-4: 80918 02/14/2015 ([id number]) 91487 EST. PATIENT, LEVEL IV Diagnosis: ESSENTIAL HYPERTENSION[ICD9: 401.9] Diagnosis: Depression[ICD9: 311] Diagnosis: Hip pain[ICD9: 719.45] Salima Carolina MD, [facility] CPT-4: 58024 10/22/2014 ([id number]) 44304 EST. PATIENT, LEVEL IV Diagnosis: ESSENTIAL HYPERTENSION[ICD9: 401.9] Diagnosis: Hip pain[ICD9: 719.45] Diagnosis: Depression[ICD9: 311] Salima Carolina MD, [facility] CPT-4: 58370 08/22/2014 ([id number]) 31889 EST. PATIENT, LEVEL IV Diagnosis: ESSENTIAL HYPERTENSION[SNOMED: 08650822] Diagnosis: Renal cyst[ICD9: 753.10] Diagnosis: Constipation - functional[ICD9: 564.09] Salima Carolina MD [facility] CPT-4: 20566 02/21/2014 ([id number]) 21805 EST. PATIENT, LEVEL III Diagnosis: Nausea and vomiting[ICD9: 787.01] Diagnosis: Diarrhea[ICD9: 787.91] Diagnosis: Renal cyst[ICD9: 753.10] Diagnosis: UTI[ICD9: 599.0] Salima Carolina MD [facility] CPT-4: 83897 12/19/2013 ([id number]) 57028 EST. PATIENT, LEVEL III Diagnosis: Diarrhea[ICD9: 787.91] Diagnosis: Nausea and vomiting[ICD9: 787.01] Diagnosis: UTI[ICD9: 599.0] Donya Carolina MD [facility] CPT-4: 56820 12/04/2013 ([id number]) 96478 EST. PATIENT, LEVEL III Diagnosis: ESSENTIAL HYPERTENSION[SNOMED: 00641821] Diagnosis: Abdominal pain[ICD9: 789.00] Salima Carolina MD [facility] CPT- 4: 94559 11/23/2013 ([id number]) Patient admitted to the hospital from clinic (NO CHARGE) Diagnosis: Diarrhea[ICD9: 787.91] Diagnosis: Abdominal discomfort[ICD9: 789.00] Diagnosis: Nausea and vomiting[ICD9: 787.01] Salima Carolina MD [facility] CPT-4: 23775X 10/31/2013 ([id number]) 49777 EST. PATIENT, LEVEL III Diagnosis: Diarrhea[ICD9: 787.91] Salima Carolina MD [facility] CPT-4: 12554 10/18/2013 ([id number]) 32851 EST. PATIENT, LEVEL III Diagnosis: ESSENTIAL HYPERTENSION[SNOMED: 71461525] Salima Carolina MD [facility] CPT-4: 35223 08/30/2013 ([id number]) 49308 EST. PATIENT, LEVEL III Diagnosis: ESSENTIAL HYPERTENSION[SNOMED: 44866573] [facility] CPT-4: 85079 06/21/2013 ([id number]) 09880 EST. PATIENT, LEVEL III Diagnosis: ESSENTIAL HYPERTENSION[SNOMED: 34855986] [facility] CPT-4: 52938 05/31/2013 Plan of Care Planned Activity Notes [...] considered contagious. 10/11/2017 Appointment: Piper Salazar WPtel: [address] [place], [place] [id number] (30 min) [facility] 10/11/2017 Patient Education: Patient Medication Summary Completed [...] care surrogate. 08/03/2017 Appointment: Donya Lombardi WPtel: [address] [place], [place] [phone] [facility] - Annual Wellness Visit 08/03/2017 [...] this week 08/02/2017 Appointment: Donya Lombardi WPtel: [address] [place], [place] [phone] (30 min) Complex 08/02/2017 Patient Education: Patient [...] allergy spray. 07/12/2017 Appointment: Piper Salazar WPtel: [facility] (15 min) Moderate 07/12/2017 Patient Education: Patient [...] for management 06/29/2017 Appointment: Donya Lombardi [facility]el[facility] [phone] [phone] (30 min) Complex 06/29/2017 Patient Education: Patient Medication Summary Completed 06/29/2017 Patient Education: Hypertension Completed 06/29/2017 Care Plan: Referral Order SNOMED-CT : 135307788 Pending 06/29/2017 Visit Plan: Hypertension - well [...] with immodium-recommend patient stop digestive support supplement Jhywtvbqk-vyxzkdi-jxo claritin Tinea versicolor-restart ketoconazole 04/05/2017 Appointment: Donya Lombardi WPtel: [address] [place] [address] (30 min) Complex 04/05/2017 Patient Education: Patient Medication Summary Completed 04/05/2017 Visit Plan: Diarrhea - start on flagyl - continue with probiotic - call in one week to report on symptoms. 01/19/2017 Appointment: Salima Carolina WPtel: [address] [place] [address] (15 min) Moderate 01/19/2017 Patient Education: Patient Medication Summary Completed 01/19/2017 Visit Plan: Allergies -l9pikk-SOX- chronic - recommended pt to use allergy [...] allergy spray. 10/05/2016 Appointment: Donya Lombardi WPtel: [address] [place] [address] (30 min) Complex 10/05/2016 Patient Education: Patient Medication Summary Completed 10/05/2016 Appointment: Donya Lombardi WPtel: [address] [place] [address] (30 min) Complex 05/18/2016 Visit Plan: Hypertension [...] symptoms are not improving. Parkinsons-seeing neurologist in [place] 04/14/2016 Patient Education: Patient Medication Summary Completed [...] 01/13/2016 Care Plan: Referral Order SNOMED-CT : [id number] Ordered 01/13/2016 Visit Plan: Hypertension - well [...] current medications. 04/24/2015 Appointment: Salima Carolina WPtel[facility] [facility] 04/24/2015 Patient Education: Patient Medication Summary Completed 04/24/2015 Patient Education: Hypertension Completed 04/24/2015 Care Plan: COMPLETE CBC AUTOMATED LOINC : 60137-7 Ordered 04/24/2015 Visit Plan: Sinusitis - Pt [...] Follow up 10/22/2014 Appointment: Salima Carolina WPtel: [phone] [facility] Follow up 10/22/2014 Patient Education: Patient Medication [...] physical therapy. 08/22/2014 Appointment: Salima Carolina [facility]Ptel[facility] [phone] [facility] Follow [facility] 08/22/2014 Patient Education: Patient Medication Summary Completed 08/22/2014 Patient Education: Hypertension Completed 08/22/2014 Care Plan: Referral Order SNOMED-CT : [id number] Ordered 08/22/2014 Visit Plan: Hypertension - well controlled - continue with current medications, continue with no added salt diet. Pt has been encouraged to exercise daily. The pt has been advised to call the office if there are any acute concerns about change in blood pressure readings at home. Renal cyst - pt had drained at [facility] - she will go back to Dr. Tran in 3 months - she is wondering about being evaluated by Dr. Schwartz in 3 months instead of going back to [facility]. Constipation - uncontrolled - I have [...] this regimen. 02/21/2014 Appointment: Salima Carolina WPtel: [address] [place], [place] [id number] Follow up 02/21/2014 Patient Education: Patient Medication Summary Completed 02/21/2014 Patient Education: Hypertension Completed 02/21/2014 Patient Education: Patient Medication Summary Completed 12/25/2013 Visit Plan: N/V/D-Dr Carolina in to evaluate patient-plan for outpatient IVF x 2 days-clear liquid/bland diet-use lomotil prn diarrhea- call if symptoms do not resolve, or if any worse. Renal fynq-hgxyo-lfkzz to urologist at [facility]-await culture 12/19/2013 Patient [...] acute infection. 12/04/2013 Appointment: Donya Lombardi WPtel: [facility] [place] [address] 12/04/2013 Patient Education: Patient Medication Summary Completed [...] not improving. 11/23/2013 Appointment: Salima Carolina WPtel: [facility] follow up 11/23/2013 Patient Education: Patient [...] negative cdiff. 10/18/2013 Appointment: Salima Carolina WPtel: [facility]4 [place] [phone] [facility] 10/18/2013 Patient Education: Patient Medication Summary Completed 10/18/2013 Visit Plan: Hypertension - well controlled - continue with current medications, continue with no added salt diet. Pt has been encouraged to exercise daily. The pt has been advised to call the office if there are any acute concerns about change in blood pressure readings at home. 08/30/2013 Appointment: Salima Carolina WPtel: [phone] Follow up 08/30/2013 Patient Education: Patient Medication [...] cozaar 50mg. 06/21/2013 Appointment: Salima Carolina WPtel: [phone] Follow up 06/21/2013 Patient Education: Patient Medication [...] acute concerns. 05/31/2013 Appointment: Salima Carolina WPtel: [facility] New Patient 05/31/2013 Patient Education: Patient Medication Summary Completed 05/31/2013 Patient Education: Hypertension Completed 05/31/2013 Referral: Xenia Holcomb Referral Appointment Requested Referral: [facility] WPtel: [address] [place], [place] [phone] [place] Referral Initiated Referral: Anton Alvarado Referral [...] of plan. Heart murmur -needs echo-will scheduled Sracrwaf-pmrfdck-nbcoyll to increase probiotics and monitor symptoms-will look [...] change in blood pressure readings at home. Fqtbtbxa-hppmopl-QB called in for lomotil and instructed on [...] symptoms are not improving. Parkinsons-seeing neurologist in [place] . Hypertension - uncontrolled - the patient's [...] you don't start feeling better . Allergies -s9nsld-PQF- chronic - recommended pt to use allergy [...] not resolve, or if any worse. Renal isrq-vynnw-dbqmq to urologist at [facility]-await culture appt at [facility] on 08/28/14 @ 2:45pm. Hypertension [...] Renal cyst - pt had drained at [facility] - she will go back to Dr. Tran in 3 months - she is wondering about being evaluated by Dr. Schwartz in 3 months instead of going back to [facility]. Constipation - uncontrolled - I have [...] with immodium-recommend patient stop digestive support supplement Hzjrowrqe-kwrzbdj-feo claritin Tinea versicolor-restart ketoconazole . Hypertension - [...]
--- OUTSIDE RECORDS SUMMARY | 2019-01-04 08:30 | XMS REPORT | Continuity of Care Document ---
Author Author [facility] Organization [facility] Address Unknown Phone Unavailable Allergies Active Description Code Type Severity Reaction Onset Reported/Identified Relationship to Patient Clinical Status Yes No Known Drug Allergies [id number] Drug Allergy Unknown N/A 01/02/2019 Medications There is no data. Problems Date [...] MOMO A Ot 785.2 06/18/2015 SHAUN TINOCO [employer] Ot 724.2 06/18/2015 SHAUN TINOCO [employer] Ot 782.0 06/18/2015 SHAUN TINOCO [employer] Ot 787.60 06/25/2015 SHAUN TINOCO [employer] Ot 724.02 06/25/2015 SHAUN TINOCO [employer] Ot 782.0 06/25/2015 SHAUN TINOCO [employer] Ot 787.60 07/11/2015 SHAUN TINOCO [employer] SCOUT Ot 724.2 07/11/2015 SHAUN TINOCOP Ot 782.0 07/11/2015 SHAUN TINOCO [employer] SCOUT Ot 787.60 07/23/2015 SHAUN TINOCO [employer] SCOUT Ot 724.02 07/23/2015 SHAUN TINOCO [employer] SCOUT Ot 782.0 07/23/2015 SHAUN TINOCO [employer] SC[employer] Ot 787.60 10/11/2015 SHAUN TINOCO [employer] SC[employer] Ot 724.02 10/11/2015 SHAUN TINOCO [employer] SC[employer] Ot 782.0 10/11/2015 SHAUN TINOCO [employer] Ot 787.60 11/01/2015 PIOTR ELLIS 332.0 PARALYSIS AGITANS 11/01/2015 PIOTR ELLIS G20 PARKINSON'S DISEASE 11/05/2015 ALEJANDRINASHAUN [employer] Ot F17.210 11/05/2015 ALEJANDRINASHAUN [employer] Ot R05 11/12/2015 GRACE ROCHA COMMERCIAL ILLUSTRATOR Ot R05 11/12/2015 GRACE ROCHA COMMERCIAL ILLUSTRATOR Ot R06.02 03/04/2016 CAN DUFFY MD, FACC FACP CCDS Ot G20 PARKINSON'S DISEASE 03/04/2016 CLIVE DAMICO FACC, CAN FACP CCDS Ot I10 ESSENTIAL (PRIMARY) HYPERTENSION 03/04/2016 CAN DUFFY MD, FACC FACP CCDS Ot I35.0 NONRHEUMATIC AORTIC (VALVE) STENOSIS 03/04/2016 CLIVE DAMICO FACC, CAN FACP CCDS Ot R06.02 SHORTNESS OF BREATH 03/04/2016 CLIVE DAMICO FACC, CAN KATZP CCDS Ot R09.89 OTH SYMPTOMS AND SIGNS INVOLVING THE CIR 03/24/2016 CAN DUFFY MD, FACC FACP CCDS Ot G20 PARKINSON'S DISEASE 03/24/2016 CLIVE DAMICO FACC, CAN FACP CCDS Ot I10 ESSENTIAL (PRIMARY) HYPERTENSION 03/24/2016 CLIVE DAMICO FACC, CAN FACP CCDS Ot I35.0 NONRHEUMATIC AORTIC (VALVE) STENOSIS 03/24/2016 CLIVE DAMICO FACC, CAN FACP CCDS Ot R06.02 SHORTNESS OF BREATH 03/24/2016 CLIVE DAMICO FACC, CAN FACP CCDS Ot R09.89 OTH SYMPTOMS AND SIGNS INVOLVING THE CIR 02/11/2017 ALEJANDRINA SHAUN M [employer] Ot 724.02 SPINAL STENOSIS, LUMBAR REG, W/OUT NEURO 02/11/2017 SHAUN TINOCO [employer] Ot 782.0 SKIN SENSATION DISTURB 02/11/2017 ALEJANDRINA SHAUN Raj [employer] Ot 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 02/11/2017 ALEJANDRINA SHAUN M [employer] Ot F17.210 NICOTINE DEPENDENCE, CIGARETTES, UNCOMPL 02/11/2017 SHAUN TINOCO [employer] Ot R05 COUGH 02/11/2017 GRACE ROCHA COMMERCIAL ILLUSTRATOR Ot R05 COUGH 02/11/2017 GRACE ROCHA COMMERCIAL ILLUSTRATOR Ot R06.02 SHORTNESS OF BREATH 02/11/2017 CLIVE DAMICO FAC, ALI FACP CCDS Ot G20 PARKINSON'S DISEASE 02/11/2017 CLIVE DAMICO FAC, ALI FACP CCDS Ot I10 ESSENTIAL (PRIMARY) HYPERTENSION 02/11/2017 CLIVE DAMICO FACC, ALI FACP CCDS Ot I35.0 NONRHEUMATIC AORTIC (VALVE) STENOSIS 02/11/2017 CLIVE DAMICO FACC, ALI FACP CCDS Ot R06.02 SHORTNESS OF BREATH 02/11/2017 CLIVE DAMICO FACC, ALI FACP CCDS Ot [...] MD Ot 785.2 CARDIAC MURMURS NEC 06/22/2017 HSAUN TINOCO [employer] Ot 724.2 LUMBAGO 06/22/2017 SHAUN TINOCO [employer] Ot 782.0 SKIN SENSATION DISTURB 06/22/2017 SHAUN TINOCO [employer] Ot 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 06/22/2017 SHAUN TINOCO [employer] Ot 724.02 SPINAL STENOSIS, LUMBAR REG, W/OUT NEURO 06/22/2017 SHAUN TINOCO [employer] SCOUT Ot 782.0 SKIN SENSATION DISTURB 06/22/2017 SHAUN TINOCO [employer] SCOUT Ot 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 06/22/2017 SHAUN TINOCO [employer] Ot F17.210 NICOTINE DEPENDENCE, CIGARETTES, UNCOMPL 06/22/2017 ALEJANDRINASHAUN [employer] Ot R05 COUGH 06/22/2017 GRACE ROCHA COMMERCIAL ILLUSTRATOR Ot R05 COUGH 06/22/2017 GRACE ROCHA COMMERCIAL ILLUSTRATOR Ot R06.02 SHORTNESS OF BREATH 06/22/2017 CLIVE DAMICO FAC, ALI FACP CCDS Ot G20 PARKINSON'S DISEASE 06/22/2017 CLIVE DAMICO FAC, ALI FACP CCDS Ot I10 ESSENTIAL (PRIMARY) HYPERTENSION 06/22/2017 CLIVE DAMICO FAC, ALI FACP CCDS Ot I35.0 NONRHEUMATIC AORTIC (VALVE) STENOSIS 06/22/2017 CLIVE DAMICO FAC, ALI FACP CCDS Ot R06.02 SHORTNESS OF BREATH 06/22/2017 CLIVE DAMICO FAC, ALI FACP CCDS Ot R09.89 OTH SYMPTOMS AND SIGNS INVOLVING THE CIR 06/22/2017 OTHER, UNLISTED Ot R19.7 DIARRHEA, UNSPECIFIED 07/23/2017 ALEJANDRINASHAUN Raj [employer]OUT Ot I10 ESSENTIAL (PRIMARY) HYPERTENSION 08/12/2017 CJ [...] 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 11/22/2017 HARSHA DO, DEAN Johnson Ot E83.42 HYPOMAGNESEMIA 11/22/2017 HARSHA DO, DEAN Johnson Ot E87.6 HYPOKALEMIA 11/22/2017 HARSHA DO, DEAN Johnson Ot I10 ESSENTIAL (PRIMARY) HYPERTENSION 11/22/2017 HARSHA DODEAN Ot I35.0 NONRHEUMATIC AORTIC (VALVE) STENOSIS 11/22/2017 DEAN MCLEOD DO Ot I73.9 PERIPHERAL VASCULAR DISEASE, UNSPECIFIED 11/22/2017 HARSHA DODEAN Ot K59.09 OTHER CONSTIPATION 11/22/2017 HARSHA , DEAN Johnson Ot M19.91 PRIMARY OSTEOARTHRITIS, UNSPECIFIED SITE 11/22/2017 HARSHA DODEAN Ot R17 UNSPECIFIED JAUNDICE 11/22/2017 HARSHA DO, DEAN Johnson Ot S72.122A DISP FX OF LESSER TROCHANTER OF LEFT FEM 11/22/2017 HARSHA DODEAN Ot S72.22XA DISPLACED SUBTROCHANTERIC FRACTURE OF LE 11/22/2017 HARSHA DODEAN Ot W10.8XXA FALL (ON) (FROM) OTHER STAIRS AND STEPS, 11/22/2017 HASRHA DEAN GIBBS Ot Y92.[address] IN [facility] NON-INSTITUT (PRIVATE) 11/22/2017 DEAN MCLEOD DO, Ot Z98.1 ARTHRODESIS STATUS 11/26/2017 DEAN MCLEOD DO Ot B96.20 [facility] ESCHERICHIA COLI THE CAUSE OF DI 11/26/2017 HARSHA DO, DEAN Johnson Ot E83.42 HYPOMAGNESEMIA 11/26/2017 HARSHA DODEAN Ot E87.6 HYPOKALEMIA 11/26/2017 HARSHA DODEAN Ot I10 ESSENTIAL (PRIMARY) HYPERTENSION 11/26/2017 HARSHA GIBBS, DEAN Johnson Ot I35.0 NONRHEUMATIC AORTIC (VALVE) STENOSIS 11/26/2017 HARSHA GIBBS, DEAN Johnson Ot I73.9 PERIPHERAL VASCULAR DISEASE, UNSPECIFIED 11/26/2017 HARSHA GIBBS, DEAN Johnson Ot K59.09 OTHER CONSTIPATION 11/26/2017 HARSHA GIBBS, DEAN Johnson Ot M19.91 PRIMARY OSTEOARTHRITIS, UNSPECIFIED SITE 11/26/2017 HARSHA GIBBS, DEAN Johnson Ot N39.0 URINARY TRACT INFECTION, SITE NOT SPECIF 11/26/2017 HARSHA GIBBS, DEAN Johnson Ot R17 UNSPECIFIED JAUNDICE 11/26/2017 HARSHA GIBBS, DEAN Johnson Ot R19.7 DIARRHEA, UNSPECIFIED 11/26/2017 HARSHA GIBBS, DEAN Johnson Ot S72.122A DISP FX OF LESSER TROCHANTER OF LEFT FEM 11/26/2017 HARSHA GIBBS, DEAN Johnson Ot S72.22XA DISPLACED SUBTROCHANTERIC FRACTURE OF LE 11/26/2017 HARSHA GIBBS DEAN Johnson Ot W10.8XXA FALL (ON) (FROM) OTHER STAIRS AND STEPS, 11/26/2017 HARSHA GIBBS DEAN Johnson Ot Y92.[address] IN [facility] NON-INSTITUT (PRIVATE) 11/26/2017 HARSHA GIBBS DEAN Johnson Ot Z98.1 ARTHRODESIS STATUS 01/20/2018 DEAN MCLEOD V54.89 OTHER ORTHOPEDIC AFTERCARE 01/20/2018 DEAN MCLEOD Z47.89 ENCOUNTER FOR OTHER ORTHOPEDIC AFTERCARE 02/14/2018 DEAN MCLEOD V54.89 OTHER ORTHOPEDIC AFTERCARE 02/14/2018 DEAN MCLEOD Z47.89 ENCOUNTER FOR OTHER ORTHOPEDIC AFTERCARE 04/12/2018 MOMO WU MD Ot V76.12 OTH SCREEN MAMMO-MALIGN NEOPLASM OF NATASHA 04/12/2018 MOMO WU MD Ot 401.9 HYPERTENSION NOS 04/12/2018 MOMO WU MD Ot V58.69 OTH MED,LT,CURRENT USE 04/12/2018 MOMO WU MD Ot V58.83 ENCOUNTER FOR THERAPEUTIC DRUG MONITORIN 04/12/2018 MOMO WU MD Ot 719.45 JOINT PAIN-PELVIS 04/12/2018 MOMO WU MD Ot 785.2 CARDIAC MURMURS NEC 04/12/2018 SHAUN TINOCO [employer] Ot 724.2 LUMBAGO 04/12/2018 SHAUN TINOCO [employer]OUT Ot 782.0 SKIN SENSATION DISTURB 04/12/2018 SHAUN TINOCO [employer] Ot 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 04/12/2018 SHAUN TINOCO [employer] Ot I10 ESSENTIAL (PRIMARY) HYPERTENSION 04/12/2018 CJ BENTON Ot I11.0 HYPERTENSIVE HEART DISEASE WITH HEART FA 04/12/2018 CJ BENTON Ot I35.0 NONRHEUMATIC AORTIC (VALVE) STENOSIS 04/12/2018 CJ BENTON Ot I50.30 UNSPECIFIED DIASTOLIC (CONGESTIVE) HEART 04/12/2018 CJ BENTON Ot 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 09/15/2018 SHAUN TINOCO [employer]OUT Ot 724.02 SPINAL STENOSIS, LUMBAR REG, W/OUT NEURO 09/15/2018 SHAUN TINOCO [employer] SCOUT Ot 782.0 SKIN SENSATION DISTURB 09/15/2018 SHAUN TINOCO [employer] SCOUT Ot 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 09/15/2018 SHAUN TINOCO [employer] SCOUT Ot F17.210 NICOTINE DEPENDENCE, CIGARETTES, UNCOMPL 09/15/2018 SHAUN TINOCO [employer] SCOUT Ot R05 COUGH 09/15/2018 GRACE ROCHA COMMERCIAL ILLUSTRATOR Ot R05 COUGH 09/15/2018 GRACE ROCHA COMMERCIAL ILLUSTRATOR Ot R06.02 SHORTNESS OF BREATH 09/15/2018 CLIVE DAMICO FACVince, ALI FACP CCDS Ot G20 PARKINSON'S DISEASE 09/15/2018 CLIVE DAMICO FACC, ALI FACP CCDS Ot I10 ESSENTIAL (PRIMARY) HYPERTENSION 09/15/2018 CLIVE DAMICO FACC, ALI FACP CCDS Ot I35.0 NONRHEUMATIC AORTIC (VALVE) STENOSIS 09/15/2018 CLIVE DAMICO FACC, ALI FACP CCDS Ot R06.02 SHORTNESS OF BREATH 09/15/2018 CLIVE DAMICO FACC, ALI FACP CCDS Ot R09.89 OTH SYMPTOMS AND SIGNS INVOLVING THE CIR 09/15/2018 OTHER, UNLISTED Ot R19.7 DIARRHEA, UNSPECIFIED 09/15/2018 SHAUN TINOCOP Ot I10 ESSENTIAL (PRIMARY) HYPERTENSION 09/15/2018 CJ BENTON Ot I11.0 HYPERTENSIVE HEART DISEASE WITH HEART FA 09/15/2018 CJ BENTON Ot I35.0 NONRHEUMATIC AORTIC (VALVE) STENOSIS 09/15/2018 CJ BENTON Ot I50.30 UNSPECIFIED DIASTOLIC (CONGESTIVE) HEART 09/15/2018 CJ BENTON Ot 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 09/19/2018 SHAUN TINOCO [employer] Ot K22.4 DYSKINESIA OF ESOPHAGUS 10/07/2018 SHAUN TINOCO [employer]OUT Ot K22.4 DYSKINESIA OF ESOPHAGUS 01/02/2019 SHAUN TINOCO [employer] SCOUT Ot 724.02 SPINAL STENOSIS, LUMBAR REG, W/OUT NEURO 01/02/2019 SHAUN TINOCO [employer] SCOUT Ot 782.0 SKIN SENSATION DISTURB 01/02/2019 SHAUN TINOCO [employer] SCOUT Ot 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 01/02/2019 SHAUN TINOCO [employer] SCOUT Ot F17.210 NICOTINE DEPENDENCE, CIGARETTES, UNCOMPL 01/02/2019 SHAUN TINOCO [employer] Ot R05 COUGH 01/02/2019 GRACE ROCHA COMMERCIAL ILLUSTRATOR Ot R05 COUGH 01/02/2019 GRACE ROCHA COMMERCIAL ILLUSTRATOR Ot R06.02 SHORTNESS OF BREATH 01/02/2019 CLIVE DAMICO FACC, ALI FACP CCDS Ot G20 PARKINSON'S DISEASE 01/02/2019 CLIVE DAMICO FACC, ALI FACP CCDS Ot I10 ESSENTIAL (PRIMARY) HYPERTENSION 01/02/2019 CLIVE DAMICO FACC, ALI FACP CCDS Ot I35.0 NONRHEUMATIC AORTIC (VALVE) STENOSIS 01/02/2019 CLIVE KATZC, ALI FACP CCDS Ot R06.02 SHORTNESS OF BREATH 01/02/2019 CLIVE DAMICO FACC, ALI FACP CCDS Ot R09.89 OTH SYMPTOMS AND SIGNS INVOLVING THE CIR 01/02/2019 OTHER, UNLISTED Ot R19.7 DIARRHEA, UNSPECIFIED 01/02/2019 SHAUN TINOCO [employer] SCOUT Ot I10 ESSENTIAL (PRIMARY) HYPERTENSION 01/02/2019 CJ BENTON Ot I11.0 HYPERTENSIVE HEART DISEASE WITH HEART FA 01/02/2019 ALFONZO BEAL, CJ K Ot I35.0 NONRHEUMATIC AORTIC (VALVE) STENOSIS 01/02/2019 CJ BENTON Ot I50.30 UNSPECIFIED DIASTOLIC (CONGESTIVE) HEART 01/02/2019 ALFONZO BEAL CJ K Ot 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 01/02/2019 SHAUN TINOCO Ot K22.4 DYSKINESIA OF ESOPHAGUS 01/02/2019 ALFONZO BEAL, CJ K Ot I11.0 HYPERTENSIVE HEART DISEASE WITH HEART FA 01/02/2019 ALFONZO BEAL, CJ K Ot I35.0 NONRHEUMATIC AORTIC (VALVE) STENOSIS 01/02/2019 ALFONZO BEAL, CJ K Ot I50.30 UNSPECIFIED DIASTOLIC (CONGESTIVE) HEART 01/02/2019 ALFONZO BEAL CJ K Ot 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 01/02/2019 ASHLEY DAMICO, FIDEL Anthony Ot Z01.818 ENCOUNTER FOR OTHER PREPROCEDURAL EXAMIN Procedures Code Description Performed By Performed On [id number] REPOSITION LEFT UPPER FEMUR WITH INTRAME 11/20/2017 [id number] REPOSITION L FEMUR SHAFT WITH INTRAMED F 11/20/2017 Results Test Result Range Thyroid Stimulating Hormone - 10/23/16 06:44 TSH 1.72 mIU/mL 0.32-5.00 [id number] - 02/07/17 15:00 RESULTS NEGATIVE FOR ANTIGEN AND TOXIN A/B [facility] [id number] - 02/07/17 15:00 [id number] FOOTNOTE NR Complete blood count (CBC) with automated white [...] granules detection by light microscopy 1+ NRG Complete urinalysis with reflex to culture - 11/19/17 15:00 Urine color determination YELLOW NRG Urine clarity determination CLEAR NRG Urine pH measurement by test strip 7 5-9 Specific gravity of urine by test strip 1.005 1.016- 1.022 Urine protein assay by test strip, semi-quantitative NEGATIVE NEGATIVE Urine glucose detection by automated test strip NEGATIVE NEGATIVE Erythrocytes detection in urine sediment by light microscopy NEGATIVE NEGATIVE Urine ketones detection by automated test strip 1+ NEGATIVE Urine nitrite detection by test strip NEGATIVE NEGATIVE Urine total bilirubin detection by test strip NEGATIVE NEGATIVE Urine urobilinogen measurement by automated test strip (mass/volume) NORMAL NORMAL Urine leukocyte esterase detection by dipstick 3+ NEGATIVE Automated urine sediment erythrocyte count by microscopy (number/high power field) NONE NRG Automated urine sediment leukocyte count by microscopy (number/high power field ) [HPF] NRG Bacteria detection in urine sediment by light microscopy MODERATE NRG Squamous epithelial cells detection in urine sediment by light microscopy 0-2 NRG Crystals detection in urine sediment by light microscopy NONE NRG Casts detection in urine sediment by light microscopy NONE NRG Mucus detection in urine sediment by light microscopy NEGATIVE NRG Complete urinalysis with reflex to culture YES NRG Bacterial urine culture - 11/19/17 15:00 Bacterial urine culture [id number] NRG COLONY COUNT >100,000/ML NRG FTX;REPORTABLE SENSITIVITY REPORTED 11/21 07:11 NRG Bacterial susceptibility panel - 11/19/17 15:00 Gentamicin susceptibility test by minimum inhibitory concentration < = NRG Trimethoprim/sulfamethoxazole susceptibility test by minimum inhibitoryconcentration R NRG Ampicillin susceptibility test by minimum inhibitory concentration > = NRG Tobramycin susceptibility test by minimum inhibitory concentration < = NRG Cefazolin susceptibility test by minimum inhibitory concentration < = NRG Ceftriaxone susceptibility test by minimum inhibitory concentration <= NRG Ampicillin/sulbactam susceptibility test by minimum inhibitory concentration S NRG Piperacillin/tazobactam susceptibility test by minimum inhibitory concentration S NRG Ciprofloxacin susceptibility test by minimum inhibitory concentration 2 NRG Meropenem susceptibility test by minimum inhibitory concentration < = NRG Nitrofurantoin susceptibility test by minimum inhibitory concentration <= NRG Aztreonam susceptibility test by minimum inhibitory concentration < = NRG Extended spectrum beta lactamase (ESBL) producing bacteria susceptibility test by minimum inhibitory concentration - NRG Methicillin resistant Staphylococcus aureus (MRSA) screening culture - 20:05 Methicillin resistant Staphylococcus aureus (MRSA) screening culture NEG NRG Complete blood count (CBC) with automated white blood cell (WBC) differential - 11/20/17 04:12 Blood leukocytes automated count (number/volume) 10.3 10*3/uL 4.3-11.0 Blood erythrocytes automated count (number/volume) 4.57 10*6/uL 4.35-5.85 Venous blood hemoglobin measurement (mass/volume) 12.4 g/dL 11.5-16.0 Blood hematocrit (volume fraction) 36 % 35-52 Automated erythrocyte mean corpuscular volume 79 [foz_us] 80-99 Automated erythrocyte mean corpuscular hemoglobin (mass per erythrocyte) 27 pg 25-34 Automated erythrocyte mean corpuscular hemoglobin concentration measurement ( mass/volume) 34 g/dL 32-36 Automated erythrocyte distribution width ratio 14.9 % 10.0-14.5 Automated blood platelet count (count/volume) 208 10*3/uL 130-400 Automated blood platelet mean volume measurement 9.4 [foz_us] 7.4-10.4 Automated blood neutrophils/100 leukocytes 77 % 42-75 Automated blood lymphocytes/100 leukocytes 13 % 12-44 Blood monocytes/100 leukocytes 8 % 0-12 Automated blood eosinophils/100 leukocytes 2 % 0-10 Automated blood basophils/100 leukocytes 0 % 0-10 Blood neutrophils automated count (number/volume) 7.9 10*3 1.8-7.8 Blood lymphocytes automated count (number/volume) 1.4 10*3 1.0-4.0 Blood monocytes automated count (number/volume) 0.8 10*3 0.0-1.0 Automated eosinophil count 0.2 10*3/uL 0.0-0.3 Automated blood basophil count (count/volume) 0.0 10*3/uL 0.0-0.1 Comprehensive metabolic panel - 11/20/17 04:33 Serum or plasma sodium measurement (moles/volume) 133 mmol/L 135-145 Serum or plasma potassium measurement (moles/volume) 4.2 mmol/L 3.6-5.0 Serum or plasma chloride measurement (moles/volume) 97 mmol/L 98-107 Carbon dioxide 26 mmol/L 21-32 Serum or plasma anion gap determination (moles/volume) 10 mmol/L 5-14 Serum or plasma urea nitrogen measurement (mass/volume) 9 mg/dL 7-18 Serum or plasma creatinine measurement (mass/volume) 0.68 mg/dL 0.60-1.30 Serum or plasma urea nitrogen/creatinine mass ratio 13 NRG Serum or plasma creatinine measurement with calculation of estimated glomerular filtration rate > NRG Serum or plasma glucose measurement (mass/volume) 101 mg/dL 70-105 Serum or plasma calcium measurement (mass/volume) 8.4 mg/dL 8.5-10.1 Serum or plasma total bilirubin measurement (mass/volume) 1.7 mg/dL 0.1-1.0 Serum or plasma alkaline phosphatase measurement (enzymatic activity/volume) 52 U/L 40-136 Serum or plasma aspartate aminotransferase measurement (enzymatic activity/ volume) 19 U/L 5-34 Serum or plasma alanine aminotransferase measurement (enzymatic activity/volume ) 13 U/L 0-55 Serum or plasma protein measurement (mass/volume) 5.8 g/dL 6.4-8.2 Serum or plasma albumin measurement (mass/volume) 3.4 g/dL 3.2-4.5 Magnesium - 11/20/17 04:33 Magnesium 2.1 mg/dL 1.8-2.4 Automated blood complete blood count (hemogram) panel - 11/21/17 04:56 Blood leukocytes automated count (number/volume) 11.4 10*3/uL 4.3-11.0 Blood erythrocytes automated count (number/volume) 3.87 10*6/uL 4.35-5.85 Venous blood hemoglobin measurement (mass/volume) 10.4 g/dL 11.5-16.0 Blood hematocrit (volume fraction) 31 % 35-52 Automated erythrocyte mean corpuscular volume 81 [foz_us] 80-99 Automated erythrocyte mean corpuscular hemoglobin (mass per erythrocyte) 27 pg 25-34 Automated erythrocyte mean corpuscular hemoglobin concentration measurement ( mass/volume) 33 g/dL 32-36 Automated erythrocyte distribution width ratio 14.9 % 10.0-14.5 Automated blood platelet count (count/volume) 190 10*3/uL 130-400 Automated blood platelet mean volume measurement 9.9 [foz_us] 7.4-10.4 Whole blood basic metabolic panel - 11/21/17 04:56 Serum or plasma sodium measurement (moles/volume) 133 mmol/L 135-145 Serum or plasma potassium measurement (moles/volume) 5.5 mmol/L 3.6-5.0 Serum or plasma chloride measurement (moles/volume) 103 mmol/L 98-107 Carbon dioxide 21 mmol/L 21-32 Serum or plasma anion gap determination (moles/volume) 9 mmol/L 5-14 Serum or plasma urea nitrogen measurement (mass/volume) 10 mg/dL 7-18 Serum or plasma creatinine measurement (mass/volume) 0.69 mg/dL 0.60-1.30 Serum or plasma urea nitrogen/creatinine mass ratio 14 NRG Serum or plasma creatinine measurement with calculation of estimated glomerular filtration rate > NRG Serum or plasma glucose measurement (mass/volume) 122 mg/dL 70-105 Serum or plasma calcium measurement (mass/volume) 7.8 mg/dL 8.5-10.1 Automated blood complete blood count (hemogram) panel - 11/22/17 06:12 Blood leukocytes automated count (number/volume) 9.6 10*3/uL 4.3-11.0 Blood erythrocytes automated count (number/volume) 4.02 10*6/uL 4.35-5.85 Venous blood hemoglobin measurement (mass/volume) 10.9 g/dL 11.5-16.0 Blood hematocrit (volume fraction) 33 % 35-52 Automated erythrocyte mean corpuscular volume 82 [foz_us] 80-99 Automated erythrocyte mean corpuscular hemoglobin (mass per erythrocyte) 27 pg 25-34 Automated erythrocyte mean corpuscular hemoglobin concentration measurement ( mass/volume) 33 g/dL 32-36 Automated erythrocyte distribution width ratio 15.3 % 10.0-14.5 Automated blood platelet count (count/volume) 185 10*3/uL 130-400 Automated blood platelet mean volume measurement 9.9 [foz_us] 7.4-10.4 Whole blood basic metabolic panel - 11/22/17 06:12 Serum or plasma sodium measurement (moles/volume) 133 mmol/L 135-145 Serum or plasma potassium measurement (moles/volume) 4.3 mmol/L 3.6-5.0 Serum or plasma chloride measurement (moles/volume) 97 mmol/L 98-107 Carbon dioxide 29 mmol/L 21-32 Serum or plasma anion gap determination (moles/volume) 7 mmol/L 5-14 Serum or plasma urea nitrogen measurement (mass/volume) 8 mg/dL 7-18 Serum or plasma creatinine measurement (mass/volume) 0.69 mg/dL 0.60-1.30 Serum or plasma urea nitrogen/creatinine mass ratio 12 NRG Serum or plasma creatinine measurement with calculation of estimated glomerular filtration rate > NRG Serum or plasma glucose measurement (mass/volume) 98 mg/dL 70-105 Serum or plasma calcium measurement (mass/volume) 8.2 mg/dL 8.5-10.1 Whole blood hemoglobin and hematocrit panel - 11/23/17 06:20 Venous blood hemoglobin measurement (mass/volume) 10.5 g/dL 11.5-16.0 Blood hematocrit (volume fraction) 32 % 35-52 Thyroid Stimulating Hormone - 12/07/18 07:40 TSH 1.50 mIU/mL 0.32-5.00 Encounters ACCT No. Visit Date/Time Discharge Status Pt. Type Provider Facility Loc./Unit Complaint [id number] 01/02/2019 05:38:00 01/02/2019 09:37:00 DIS Outpatient FIDEL RAMIREZ MD [facility] PREOP CHEEK LESION [id number] 09/15/2018 08:53:00 09/15/2018 23:59:59 CLS Outpatient SHAUN TINOCOP [facility] RAD R13.12 DYSPHAGIA [id number] 11/19/2017 14:00:00 11/26/2017 10:20:00 DIS Inpatient HARSHA DO, DEAN F [facility] 4TH L HIP FX [id number] 11/11/2017 00:28:00 11/11/2017 23:59:59 CLS Preadmit CJ BENTON [facility] LAB I35.0 I65.23 I50.30 I10 [id number] 08/12/2017 14:55:00 11/10/2017 00:01:00 DIS Outpatient CJ BENTON [facility] LAB I35.0 I65.23 I50.30 I10 [id number] 06/29/2017 13:32:00 06/29/2017 23:59:59 CLS Outpatient SHAUN TINOCO [facility] CARD HTN [id number] 02/07/2017 15:46:00 02/07/2017 23:59:59 CLS Outpatient OTHER, UNLISTED [facility] LAB DIARRHEA UNSPECIFED TYPE [id number] 03/03/2016 08:40:00 03/03/2016 23:59:59 CLS Outpatient CLIVE DAMICO FACC, CAN FACP CCDS [facility] CARD SOA,AORTIA STENOSIS [id number] 10/23/2015 15:10:00 10/23/2015 23:59:59 CLS Outpatient GRACE ROCHA APRN [facility] RT SHORTNESS OF BREATH, COUGH [id number] 10/11/2015 12:42:00 10/11/2015 23:59:59 CLS Outpatient SHAUN TINOCO [facility] RAD COUGH,HX TOBACCO USE [id number] 05/28/2015 10:47:00 05/28/2015 23:59:59 CLS Outpatient SHAUN TINOCOP [facility] RAD LBP,NUMBESS IN LEGS AND FECAL INCONTINTICE [id number] 05/24/2015 12:16:00 05/24/2015 23:59:59 CLS Outpatient SHAUN TINOCOP [facility] RAD LBP,NUMBESS IN LEGS AND PAIN [id number] 11/19/2014 10:49:00 11/19/2014 23:59:59 CLS Outpatient MOMO WU MD [facility] CARD HEART MUMUR [id number] 08/22/2014 12:36:00 08/22/2014 23:59:59 CLS Outpatient MOMO WU MD [facility] RAD R HIP PAIN [id number] 12/20/2013 08:54:00 03/19/2014 00:01:00 DIS Outpatient [id number] 02/22/2014 09:00:00 02/22/2014 23:59:59 CLS Outpatient MOMO WU MD [facility] RAD SCREENING [id number] 02/21/2014 11:03:00 02/21/2014 23:59:59 CLS Outpatient MOMO WU MD [facility] LAB HTN,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 [id number] 10/20/2013 07:30:00 01/16/2014 00:01:00 DIS Outpatient [id number] 12/17/2013 15:59:00 12/17/2013 20:13:00 DIS Emergency [id number] 10/31/2013 11:12:00 11/08/2013 11:07:00 DIS Inpatient [id number] 06/19/2013 08:54:00 06/19/2013 11:40:00 DIS Outpatient [id number] 06/14/2013 07:24:00 06/14/2013 23:59:59 CLS Outpatient [id number] 03/07/2013 17:46:00 03/07/2013 23:59:59 CLS Outpatient [id number] 02/27/2013 12:19:00 02/27/2013 23:59:59 CLS Outpatient [id number] 01/04/2019 06:53:00 ACT Outpatient FIDEL RAMIREZ MD [facility] [id number] 12/07/2018 07:30:00 12/07/2018 23:59:00 DIS Outpatient MOMO WU [id number] 08/18/2018 08:34:00 08/18/2018 23:59:00 DIS Outpatient TAINA CHU [id number] 01/10/2018 10:17:00 02/14/2018 15:05:00 DIS Outpatient HARSHADEAN [id number] 08/18/2017 13:28:00 08/18/2017 23:59:00 DIS Outpatient TAINA CHU [id number] 11/16/2016 13:55:00 01/08/2017 15:30:00 DIS Outpatient PIOTR ELLIS [id number] 10/23/2016 06:35:00 10/23/2016 23:59:00 DIS Outpatient MOMO WU [id number] 05/28/2015 10:48:19 ACT Document Registration 0000 08/03/2017 00:07:32 08/03/2017 23:59:59 CLS Outpatient
--- NOTE | 2019-01-04 09:04 | Operative Report ---
Operative Report Date of Procedure/Surgery Jan 04, 2019 Surgeon (s) FIDEL RAMIREZ MD [employer] Operator (s): Janine Gregorio (Med [facility]) Post-Operative Diagnosis same Procedure Performed excision Description of Procedure Anesthesia Type: MAC Estimated blood loss (mL): minimal Specimen(s) collected/removed skin lesion from the left cheek Description of the Procedure Indication for the procedure: This lady presented with a 1 cm pigmented lesion over the left facial cheek, that had increased pigmentation of recent onset. Therefore, it was felt reasonable to perform a full-thickness excision first, to rule out melanoma. Informed consent was obtained after reviewing the procedure in detail. Description of the procedure: She was placed supine on the operative table and our POULTRY FARMER EGG administered sedation, monitoring her vital signs. Left cheek was prepared and draped in the usual sterile manner. Local anesthesia was achieved using 0.5 percent Marcaine with epinephrine. An elliptical incision, 3 cm in length by 1.5 cm in width was made and the lesion excised down to the subcutaneous tissue. It was oriented with silk sutures and sent for histologic examination. Hemostasis was achieved using cautery and the incision closed using interrupted 6-0 nylon sutures. Steri-Strips were applied. She tolerated the procedure well and was taken back to the nursing area in a stable condition. Findings of the Procedure see operative report Allergies and Home Medications Allergies Coded Allergies: No Known Drug Allergies (Unverified , 01/02/19) Home Medications Amlodipine Besylate 5 Mg Tablet, 5 MG PO DAILY, (Reported) Aspirin 81 Mg Tablet.dr, 81 MG PO DAILY, (Reported) Cholecalciferol (Vitamin D3) 2,000 Unit Capsule, 2,000 UNIT PO 1200, (Reported) Hydrochlorothiazide 25 Mg Tablet, 25 MG PO DAILY, (Reported) L.acidoph & Paracasei,B.lactis 1 Each Capsule, 1 CAP PO BID, (Reported) Lutein 20 Mg Tablet, 20 MG PO BID, (Reported) Metoprolol Succinate 25 Mg Tab.er.24h, 25 MG PO DAILY, (Reported) Multivitamin 1 Each Tablet, 1 EACH PO DAILY, (Reported) Tyler 3 Polyunsat Fatty Acids 1,000 Mg Cap, 1,000 MG PO TID, (Reported) Ubiquinol 100 Mg Capsule, 100 MG PO BID, (Reported) [Slippery Elm] , 1 CAP PO TID, (Reported) Patient Home Medication List Home Medication List Reviewed: FIDEL Ferreira MD Jan 04, 2019 09:04
--- NOTE | 2019-01-04 09:06 | Discharge Inst-Simple/Standard ---
Discharge Inst-Standard Discharge Medications New, Converted or Re-Newed RX: Other Patient Instructions/Follow Up Plan of Care/Instructions/FU: follow-up with my nurse in 10 days for suture removal. Activity as Tolerated: Yes Discharge Diet: No Restrictions FIDEL RAMIREZ MD Jan 04, 2019 09:06
[2019-01-04] MEDS ORDERED: ONDANSETRON 4 MG/2 ML (SDV) Z0FRAN IVP PRN (09:15)
[2019-01-04] MEDS ORDERED: morphine INJ 10 MG/ML 1ML (SYR OR VIAL) IVP ONE (09:15)
[2019-01-04 09:50] VITALS: BP 145/66
[2019-01-04 10:20] VITALS: BP 147/64
[2019-01-04 10:35] VITALS: BP 147/64
--- NOTE | 2019-01-04 14:43 | Anesthesia-General Post-Op ---
MAC Patient Condition Mental Status/LOC: Same as Preop Cardiovascular: Satisfactory Nausea/Vomiting: Absent Respiratory: Satisfactory Pain: Controlled Complications: Absent Post Op Complications Complications None Follow Up Care/Instructions Patient Instructions None needed. Anesthesiology Discharge Order Discharge Order Patient was seen after the procedure and she was doing well, no complaints, stable vital signs, no apparent adverse anesthesia problems. VIRGIL LEACH DO Jan 04, 2019 14:43
== END 2019-01-04 10:35 | disposition home or self-care (01) ==
LOC: SDC 06:53
PROVIDERS: ATTEND Surgery
DX: L82.1 Other seborrheic keratosis (principal); Z11.2 Encounter for screening for other bacterial diseases; G47.33 Obstructive sleep apnea (adult) (pediatric); K21.9 Gastro-esophageal reflux disease without esophagitis; G62.9 Polyneuropathy, unspecified; Z79.899 Other long term (current) drug therapy; Z87.891 Personal history of nicotine dependence
CPT/HCPCS: 87081

== ENCOUNTER → 2019-02-10 | Outpatient (CLI) | payer MEDICARE, OTHER | LOC: CARD 11:45 | PROVIDERS: ATTEND Physician Assistant | DX: I10 Essential (primary) hypertension (principal); I77.9 Disorder of arteries and arterioles, unspecified; R06.02 Shortness of breath; G47.33 Obstructive sleep apnea (adult) (pediatric); I08.3 Combined rheumatic disorders of mitral, aortic and tricuspid valves | CPT/HCPCS: 93306 ==

== ENCOUNTER → 2019-02-27 | Outpatient (CLI) | payer MEDICARE, OTHER ==
[~2019-02-27] MED LIST changes: +REGADENOSON 0.4 MG/5 ML SYR (LEXISCAN) IV ONE
[2019-02-27] MEDS: CATHETER FLUSH 10 ML SYR IV PRN ×2 (07:43→09:13)
[2019-02-27 08:49] VITALS: BP 151/68
[2019-02-27 09:12] VITALS: BP 151/68
--- NOTE | 2019-02-27 15:00 | STRESS TEST ---
DATE OF SERVICE: 02/27/2019 LEXISCAN MYOVIEW STRESS TEST REPORT REFERRING PHYSICIAN: Salima Carolina MD. Baseline heart rate is 77, baseline blood pressure 151/68. Baseline EKG is sinus rhythm with no ischemic changes. In summary, the patient was injected with 10.82 mCi of technetium-99 Myoview and the resting images were obtained. Then, she received 0.4 mg of Lexiscan followed by 30.5 mCi of technetium-99 Myoview. Throughout the test, the patient was asymptomatic. She had T-wave inversion with slight ST depression in V3, V4 and V5. Blood pressure at the end of the test was 135/56. The resting and stress images were reviewed and compared in the short axis, horizontal long axis, and vertical long axis views. Review of the images showed a mild decrease uptake at the mid to apical inferoseptum with subtle reversibility, no significant ischemia was seen. SSS is 5, SDS 4, TID value 1.16. On the gated images, the left ventricle appeared to be in normal size with normal contractility. Calculated ejection fraction was 67%. CONCLUSION: 1. The patient tolerated Lexiscan well. 2. Nondiagnostic EKG changes with Lexiscan injection persisted during recovery. 3. Minimal decreased uptake at the mid to apical inferoseptum with subtle reversibility, no significant ischemia or infarction was seen. 4. Normal left ventricular size with normal contractility. Calculated ejection fraction was 67%. Job ID: [id number] DocumentID: [id number] Dictated Date: 02/27/2019 12:36:15 Preliminary School Psychologist Date: 02/27/2019 15:00:00 Dictated By: LEONIDES JARVIS MD
== END ==
LOC: CARD 07:28
PROVIDERS: ATTEND Physician Assistant
DX: I35.0 Nonrheumatic aortic (valve) stenosis (principal); I10 Essential (primary) hypertension; R06.02 Shortness of breath; G47.33 Obstructive sleep apnea (adult) (pediatric)
CPT/HCPCS: 78452; 93017

== ENCOUNTER → 2019-08-25 | Outpatient (CLI) | payer MEDICARE, OTHER ==
[~2019-08-25] MED LIST changes: -REGADENOSON 0.4 MG/5 ML SYR (LEXISCAN) IV ONE
--- NOTE | 2019-08-25 17:15 | Diagnostic Imaging Report ---
PATIENT HISTORY: Left foot, ankle pain. TECHNIQUE: Three views of the left foot. COMPARISON: None. FINDINGS: There is diffuse osteopenia. No acute fracture is seen in the left foot. Alignment appears normal. There are moderate degenerative changes at the first MTP joint and in the midfoot with mild degenerative changes scattered elsewhere in the left foot. There is mild hallux valgus. There is moderate diffuse soft tissue swelling about the left foot. IMPRESSION: Chronic findings in the left foot with no acute osseous abnormality seen. Dictated by: Dictated on workstation # [id number]
== END ==
LOC: RAD 16:00
PROVIDERS: ATTEND Nurse Practitioner Family
DX: M25.572 Pain in left ankle and joints of left foot (principal)
CPT/HCPCS: 73630

== ENCOUNTER 2019-09-13 07:28 | Day surgery (SDC) | payer MEDICARE, OTHER ==
[2019-09-13] VITALS (12 sets, daily range): BP systolic 122–161; BP diastolic 70–81
[~2019-09-13] VITALS: Ht 161.2 cm; Wt 63.5 kg
[2019-09-13] MEDS ORDERED: LIDOCAINE 1% INJ 20 ML 20 ML VIAL ONE (07:49)
[2019-09-13] MEDS ORDERED: HEParin (CATH LAB) 2,000 ML IV ONE (07:49)
[2019-09-13] MEDS ORDERED: NS IV 1000 ML 1,000 ML ONE (07:49)
[2019-09-13] MEDS ORDERED: NS IV 1000 ML 1,000 ML IV SCH ×2 (07:52→09:48)
[2019-09-13] MEDS ORDERED: ACET-93 PO (08:15)
[2019-09-13] MEDS ORDERED: CARB1TAB19 PO (08:15)
[2019-09-13] MEDS ORDERED: GABA-488 PO (08:15)
[2019-09-13] MEDS ORDERED: PQQ PO (08:18)
[2019-09-13] MEDS ORDERED: POLY1DRO OU (08:22)
[2019-09-13 08:24] LABS: HEMOGLOBIN 15.5 G/DL (11.5-16.0); RED CELL DISTRIBUTION WIDTH 13.3 % (10.0-14.5); WHITE BLOOD COUNT 4.9 10^3/uL (4.3-11.0)
[2019-09-13 08:31] LABS: BILIRUBIN,URINE NEGATIVE (NEGATIVE); CLARITY,URINE SL CLOUDY; COLOR,URINE YELLOW; GLUCOSE, URINE (UA) NEGATIVE (NEGATIVE); KETONES,URINE NEGATIVE (NEGATIVE); LEUKOCYTE ESTERASE ,URINE 3+ (NEGATIVE); NITRITE,URINE POSITIVE (NEGATIVE); PH,URINE 7.5 (5-9); PROTEIN,URINE NEGATIVE (NEGATIVE)
[2019-09-13 08:35] LABS: INR 0.9 (0.8-1.4); PROTHROMBIN TIME PATIENT 12.6 SEC (12.2-14.7)
--- NOTE | 2019-09-13 08:35 | Diagnostic Imaging Report ---
INDICATION: Heart disease. Comparison is made with prior examination of 11/19/2017. FINDINGS: Heart size is normal. Lungs are clear. There is no pleural effusion or pneumothorax. IMPRESSION: No acute cardiopulmonary abnormality Dictated by: Dictated on workstation # [id number]
[2019-09-13] MEDS ORDERED: HEParin 1000 UNIT/ML (10ML VIAL) FOR BOLUS ONE (08:36)
[2019-09-13] MEDS ORDERED: MIDAZOLAM 5 MG/5 ML (VERSED) VIAL ONE (08:36)
[2019-09-13] MEDS ORDERED: fentaNYL INJECTION 100 MCG/2 ML AMP ONE (08:36)
--- NOTE | 2019-09-13 08:38 | Cardiac Procedure Note-CS/ASA ---
Pre-Procedure Note Pre-Op Procedure Note H&P Reviewed The H&P was reviewed, patient examined and no changes noted. Date H&P Reviewed: Sep 13, 2019 Time H&P Reviewed: 08:38 Conscious Sedation Pre-Proced Time 08:38 ASA Score 3 For ASA 3 and 4: Consider anesthesia and medical clearance. Also, for patients with a history of failed moderate sedation consider anesthesia. Airway Lungs Heart ASA score ASA 1: a normal healthy patient ASA 2: a patient with a mild systemic disease (mid diabetes, controlled hypertension, obesity x ASA 3: a patient with a severe systemic disease that limits activity (angina, COPD, prior Myocardial infarction) ASA 4: a patient with an incapacitating disease that is a constant threat to life (CHF, renal failure) ASA 5: a moribund patient not expected to survive 24 hrs. (ruptured aneurysm) ASA 6: a declared brain- patient whose organs are being harvested. For emergent operations, add the letter E after the classification Mallampati Classification Grade 3 Sedation Plan Analgesia, Amnesia, Plan communicated to team members, Discussed options with patient/fam, Discussed risks with patient/fam The patient is an appropriate candidate to undergo the planned procedure, sedation, and anesthesia. The patient immediately re-assessed prior to indication. LEONIDES JARVIS MD Sep 13, 2019 08:38 POS
[2019-09-13 08:43] LABS: ALANINE AMINOTRANSFERASE 15 U/L (0-55); ALBUMIN 4.9 GM/DL (3.2-4.5); ALKALINE PHOSPHATASE 71 U/L (40-136); BILIRUBIN,TOTAL 1.9 MG/DL (0.1-1.0); BUN/CREATININE RATIO 13; CALCIUM 10.2 MG/DL (8.5-10.1); CARBON DIOXIDE 33 MMOL/L (21-32); CHLORIDE 94 MMOL/L (98-107); CHOLESTEROL 207 MG/DL (< 200); CREATININE SERUM 0.93 MG/DL (0.60-1.30); GFR ESTIMATED 58; GLUCOSE 104 MG/DL (70-105); HDL CHOLESTEROL 75 MG/DL (40-60); POTASSIUM 3.5 MMOL/L (3.6-5.0); SODIUM 136 MMOL/L (135-145); TOTAL PROTEIN 7.8 GM/DL (6.4-8.2); TRIGLYCERIDES 75 MG/DL (<150); VLDL CHOLESTEROL 15 MG/DL (5-40)
[2019-09-13 08:46] LABS: BACTERIA,URINE MODERATE /HPF; RBC,URINE 0-2 /HPF; WBC,URINE 50-100 /HPF
[2019-09-13] MEDS ORDERED: ADENOSINE 3 MG/1 ML (ADENOSCAN) 30ML VIAL IV ONE (09:31)
--- NOTE | 2019-09-13 09:56 | Cardiac Cath Report ---
Cardiac Cath Report Physician (s)/Case Briefer (s) Physician LEONIDES JARVIS MD Pre-Procedure Diagnosis Pre-Procedure Diagnosis: Chest pain, coronary artery disease Post-Procedure Note Procedure Start Date: Sep 13, 2019 Name of Procedure: Coronary angiogram FFR to LAD Findings/Procedure Note PROCEDURE NOTE: 84-year-old lady with history of aortic valve stenosis, has been having chest pain, had an abnormal stress test, scheduled for cardiac catheterization possible PTCA. After explaining the procedure to the patient, all pros and cons were explained, all questions were answered. The patient signed the consent and then she was placed on the cardiac catheterization laboratory. Groin was prepped SL fashion local anesthesia was used. Sheath placed in the artery. Quentin right and left catheter were used to access the coronary system. Pigtail was used I was unable to cross the aortic valve. Patient was noted to have 2 lesions in the LAD one in the mid LAD and one in the mid to distal LAD appear to be significant, I decided to proceed with FFR and possible intervention. Patient was given 6000 units of heparin, FL guide was advanced to the left coronary system and FFR wire was advanced to the distal LAD, baseline level was 0.88, Adenosine challenge was given over 2 minutes and the lowest FFR was 0.85. At the end of the procedure the sheath was removed. Closure device was used FINDINGS: Hemodynamics Aorta 110/44 mean of 34 FFR to the LAD was 0.88, post-adenosine challenge FFR was 0.85 ANATOMY: Left Main is free of obstructive disease Left Anterior Descending is moderately calcified, 40 percent lesion in the proximal to mid LAD, distally there was a lesion that appeared to be significant, FFR after adenosine challenge was 0.85. Medical therapy is recomme nded Left Circumflex is nondominant with mild disease nonobstructive disease Right Coronory Artery is large dominant artery with knoo-ll-bfqowwgd disease nonobstructive disease CONCLUSION: 1. Aortic valve stenosis, the valve was not crossed 2. Calcified LAD with moderate stenosis proximally, moderate to severe stenosis at the distal portion, FFR was 0.85 after adenosine challenge. 3. Dominant right coronary artery with mild disease nonobstructive disease DISCUSSION AND RECOMMENDATION: medical therapy is recommended no intervention is warranted, continue to monitor Anesthesia Type: Conscious Sedation Estimated blood loss (mL): 25 ml Contrast Amount: 82 ml Total Radiation Dose: 334 mGy Post-Procedure Diagnosis Post-operative diagnosis: Chest pain Coronary artery disease Aortic valve stenosis Hypertension LEONIDES JARVIS MD Sep 13, 2019 09:56 POS
--- NOTE | 2019-09-13 09:58 | Discharge Inst-Post CATH ---
Discharge Inst-CATH/EP Problems Reviewed?: Yes Post Cardiac Cath/EP D/C Inst Follow Up/Plan Appointment with Dr. Alvarado's office in 2-4 weeks <b>CARDIAC CATH/EP PROCEDURE DISCHARGE INSTRUCTIONS</b> ACTIVITY * Go Home directly and rest. * Limit activity of the leg (or wrist if it was used) for 7 days including aerob ics, swimming, jogging, bicycling, etc. * Restrict stair-climbing for 7 days if possible, if not, climb up with your non-cath leg, then bring together on the same step. * Avoid lifting, pushing, pulling or excessive movement of the affected extremity for 7 days. * Customary sexual activity may be resumed after 2 days-use caution not to use a position that strains or causes pain to the affected extremity. * No driving for 24 hours. * NO SMOKING. * Avoid straining for bowel movements for 7 days. * Gentle walking on level ground is allowed. * Returning to work will depend on the type of procedure and the results. Your doctor will discuss this with you. CALL YOUR DOCTOR FOR ANY OF THE FOLLOWING: *If bleeding from the puncture site occurs- Apply gentle pressure to site with clean cloth and call your doctor or EMS. * If a knot or lump forms under the skin, increases in size, or causes pain. * If bruising appears to be worsening or moving further down your leg instead of disappearing. * Temperature above 101 F. CARE OF YOUR GROIN INCISION; * Bruising or purple discoloration of the skin near the puncture site is common. * You may shower only, no bathtub bathing for 5 days. Be careful to avoid slipping as your leg may feel stiff. * If a closure device was used on your femoral artery, please see the attached guide regarding care of the device and your leg. * Leave dressing on FOR 24 hours. CARE OF YOUR WRIST INCISION; * Bruising or purple discoloration of the skin near the puncture site is common. * You may shower. * DO NOT submerge wrist. * Leave dressing on FOR 24 hours. LEONIDES ALVARADO MD Sep 13, 2019 09:58 POS
[2019-09-13] MEDS ORDERED: POVIDONE OU PRN (10:00)
[2019-09-13] MEDS ORDERED: PATIENT MAY USE OWN MEDS, ALL PO SCH (10:00)
[2019-09-13] MEDS ORDERED: POLYVINYL ALCOHOL OU PRN (10:00)
[2019-09-13] MEDS ORDERED: [UNRECOGNIZED DRUG - OTHER] OU PRN (10:00)
--- NOTE | 2019-09-13 10:08 | NUR ---
SPOKE WITH PT (SHE HAD HER HOME MEDS) WELL CALLING [facility] TO COMPLETE THE MED REC. PT WAS ABLE TO TELL ME HOW/WHEN SHE TAKES ALL HER MEDICATIONS. EVERYTHING MATCHED WITH THE DIRECTIONS ON THE BOTTLES AND FILL DATES WERE CURRENT. THE FOLLOWING ARE FILL DATES: 06-27-2019 METOPROLOL #90/90DS 07-14-2019 HCTZ #90/90DS 08-01-2019 AMLODIPINE #90/90DS 08-22-2019 CARB/LEVO #90/30DS 09-11-2019 GABAPENTIN #30/30DS OTC MEDS: SLIPPERY ELM PQQ TYLENOL ASPIRIN VIT D PROBIOTIC MTC FISH OIL REFRESH EYE DROP UBIQUINOL
[2019-09-13] MEDS ORDERED: NON-FORMULARY MEDICATION 1 EA EA (Carbidopa/Levodopa (Carbidopa-Levodopa 25-100 Tab) 1 EAC PO SCH (13:00)
[2019-09-13] MEDS ORDERED: OMEGA 3 (FISH OIL) 1000 MG CAP PO SCH (13:00)
--- NOTE | 2019-09-13 15:20 | NUR ---
RECEIVED REPORT FROM ALEC STAHL AT THIS TIME.
[2019-09-13] MEDS ORDERED: ASPIRIN E.C. 81 MG (ECOTRIN) TAB PO SCH (18:00)
[2019-09-13] MEDS ORDERED: NON-FORMULARY MEDICATION 1 EA EA (Multivitamin (Multiple Vitamins) 1 EACH) PO SCH (21:00)
[2019-09-13] MEDS ORDERED: NON-FORMULARY MEDICATION 1 EA EA (Acetaminophen 500 MG) PO SCH (21:00)
[2019-09-13] MEDS ORDERED: GABAPENTIN 300 MG (NEURONTIN) CAP PO SCH (21:00)
[2019-09-14] MEDS ORDERED: NON-FORMULARY MEDICATION 1 EA EA (Hydrochlorothiazide 25 MG) PO SCH (09:00)
[2019-09-14] MEDS ORDERED: NON-FORMULARY MEDICATION 1 EA EA (Amlodipine Besylate 5 MG) PO SCH (09:00)
[2019-09-14] MEDS ORDERED: UBIQUINOL 100 MG PO SCH (09:00)
== END 2019-09-13 16:35 | disposition home or self-care (01) ==
LOC: CATH 07:28 → SDC 10:19 → CATH 16:35
PROVIDERS: ATTEND Internal Medicine Cardiovascular Disease
DX: I25.10 Atherosclerotic heart disease of native coronary artery without angina pectoris (principal); I10 Essential (primary) hypertension; G47.33 Obstructive sleep apnea (adult) (pediatric); G20 Parkinson's disease; I08.3 Combined rheumatic disorders of mitral, aortic and tricuspid valves; Z90.49 Acquired absence of other specified parts of digestive tract; Z79.82 Long term (current) use of aspirin; Z79.899 Other long term (current) drug therapy; Z82.3 Family history of stroke; Z83.3 Family history of diabetes mellitus; Z82.49 Family history of ischemic heart disease and other diseases of the circulatory system; Z87.891 Personal history of nicotine dependence; Z90.710 Acquired absence of both cervix and uterus
CPT/HCPCS: 36415; 71045; 80053; 80061; 81000; 85027; 85610; 85730; 87077; 87081; 87088; 87186; 93454

== ENCOUNTER → 2019-10-02 | Outpatient (CLI) | payer MEDICARE, OTHER ==
[~2019-10-02] MED LIST changes: +ACET-93 PO; +CARB1TAB19 PO; +GABA-488 PO; +POLY1DRO OU; +PQQ PO
--- NOTE | 2019-10-02 11:49 | Diagnostic Imaging Report ---
INDICATION: Dysphagia. TECHNIQUE: Procedure was performed in conjunction with speech pathology. Videofluoroscopy was performed during the swallowing of barium in multiple consistencies. Total of 1 minute 0 seconds of fluoroscopic time was utilized. FINDINGS: Patient was administered thin and thick liquid as well as applesauce, banana, ground meat, and cracker consistency. There was flash laryngeal penetration during the swallowing of thin liquid through a straw. No penetration was observed. All other consistencies are unremarkable. There is normal epiglottic tilt. No residue was seen. IMPRESSION: Single episode of laryngeal penetration during the swallowing of thin liquid through a straw. The remainder of the study was unremarkable. Dictated by: Dictated on workstation # [id number]
== END ==
LOC: RAD 10:07
PROVIDERS: ATTEND Specialist
DX: R13.12 Dysphagia, oropharyngeal phase (principal)
CPT/HCPCS: 74230

== ENCOUNTER → 2019-11-28 | Outpatient (CLI) | payer MEDICARE, OTHER ==
[~2019-11-28] MED LIST changes: -METO-387 PO; +MTP25TSR PO
--- NOTE | 2019-11-28 15:37 | Diagnostic Imaging Report ---
EXAMINATION: Magnetic resonance imaging of the left ankle without contrast. DATE: November 28, 2019. COMPARISON: Left foot radiographs August 25, 2019. HISTORY: 84-year-old female, mass anterior to the left ankle. TECHNIQUE: Magnetic Resonance Imaging sequences were performed of the ankle without contrast. FINDINGS: TENDONS AND LIGAMENTS: The Achilles tendon is unremarkable. The posterior flexor tendons (tibialis posterior, flexor digitorum longus, flexor hallucis longus) are intact. The peroneal tendons (peroneus longus and peroneus brevis) are intact. There is very prominent abnormal enlargement of the tibialis anterior tendon at the area of focal patient concern. The tendon measures up to 20 x 13 mm in axial dimension at this level. This abnormal focal enlargement of the tendon is centered just slightly proximal to the tibial plafond. There is no identified complete tear of the tibialis anterior tendon. The additional anterior extensor tendons are intact. The anterior and posterior syndesmotic ligaments are intact. The anterior talofibular, posterior talofibular, calcaneofibular, and deltoid ligaments are intact. The plantar fascia is intact. JOINTS: The ankle mortise is intact. The subtalar and visualized joints of the mid-foot are intact. BONE: The bones all have normal configuration. The bone marrow signal is within normal limits. Specifically, negative for fracture, osteomyelitis, osteonecrosis, or marrow replacing process. The talar dome is intact. BURSAE AND SOFT TISSUES: There is mild diffuse subcutaneous edema at and proximal to the tibiotalar joint. There is nonspecific edema in the pre-Achilles fat. IMPRESSION: 1. Focal prominent enlargement of the tibialis anterior tendon centered just proximal to the tibial plafond, consistent with severe focal tendinopathy. No identified complete tendon tear. 2. Intact ankle ligaments. 3. No identified bone marrow signal abnormality. 4. Mild generalized subcutaneous edema and nonspecific edema in the pre-Achilles fat. 5. Unremarkable joint evaluation. Dictated by: Dictated on workstation # [id number]
== END ==
LOC: RAD 12:50
PROVIDERS: ATTEND Podiatrist Foot & Ankle Surgery
DX: M79.89 Other specified soft tissue disorders (principal); R60.1 Generalized edema
CPT/HCPCS: 73721

== ENCOUNTER → 2020-01-03 | Outpatient (CLI) | payer MEDICARE, OTHER ==
[~2020-01-03] MED LIST changes: +ACHYD1T PO; -HYDR-3820 PO
--- NOTE | 2020-01-03 10:48 | Diagnostic Imaging Report ---
PROCEDURE: CT head without contrast. TECHNIQUE: Multiple contiguous axial images were obtained through the brain without the use of intravenous contrast. Auto Exposure Controls were utilized during the CT exam to meet ALARA standards for radiation dose reduction. INDICATION: Syncope, headaches, some nausea. History of Parkinson's. CORRELATION STUDY: None. FINDINGS: There are generalized atrophic changes with prominence of the ventricles and sulci. Scattered areas of decreased attenuation while nonspecific favor likely changes reflecting small vessel ischemic disease. No definitive evidence for edema pattern. There is an approximately 19 x 16 mm heterogeneous calcified mass interhemispheric fissure along the falx. Favors probable calcified meningioma. Minimal localized mass effect without definitive edema of the adjacent brain parenchyma. No intracranial hemorrhage. No hyperdense MCA sign. Bony calvarium intact. The extreme apex of the brain not visualized. There does appear to be advanced degenerative changes mandibular joint. Visualized paranasal sinuses are relatively clear as are the mastoid air cells. IMPRESSION: 1. Negative for acute intracranial abnormality. 2. Generalized atrophic changes with likely some degree of involutional changes. 3. Probable nearly 2 cm largely calcified meningioma anterior interhemispheric fissure. Dictated by: Dictated on workstation # [id number]
== END ==
LOC: RAD 08:49
PROVIDERS: ATTEND Nurse Practitioner Family
DX: G20 Parkinson's disease (principal); R51 Headache
CPT/HCPCS: 70450

== ENCOUNTER → 2020-01-03 | Outpatient (CLI) | payer MEDICARE, OTHER ==
[2020-01-03 09:27] LABS: ALANINE AMINOTRANSFERASE < 6 U/L (0-55); ALBUMIN 4.3 GM/DL (3.2-4.5); ALKALINE PHOSPHATASE 58 U/L (40-136); BILIRUBIN,TOTAL 1.5 MG/DL (0.1-1.0); BUN/CREATININE RATIO 16; CALCIUM 9.3 MG/DL (8.5-10.1); CARBON DIOXIDE 34 MMOL/L (21-32); CHLORIDE 94 MMOL/L (98-107); CHOLESTEROL 137 MG/DL (< 200); CREATININE SERUM 0.92 MG/DL (0.60-1.30); GFR ESTIMATED 58; GLUCOSE 105 MG/DL (70-105); HDL CHOLESTEROL 71 MG/DL (40-60); POTASSIUM 3.4 MMOL/L (3.6-5.0); SODIUM 135 MMOL/L (135-145); TOTAL PROTEIN 6.6 GM/DL (6.4-8.2); TRIGLYCERIDES 45 MG/DL (<150); VLDL CHOLESTEROL 9 MG/DL (5-40)
== END ==
LOC: LAB 08:53
PROVIDERS: ATTEND Physician Assistant
DX: E78.2 Mixed hyperlipidemia (principal); I10 Essential (primary) hypertension
CPT/HCPCS: 36415; 80053; 80061

== ENCOUNTER → 2020-01-08 | Outpatient (CLI) | payer MEDICARE, OTHER ==
[2020-01-08 09:25] LABS: ALANINE AMINOTRANSFERASE < 6 U/L (0-55); ALBUMIN 4.4 GM/DL (3.2-4.5); ALKALINE PHOSPHATASE 60 U/L (40-136); BILIRUBIN,DIRECT 0.7 MG/DL (0.0-0.3); BILIRUBIN,INDIRECT 1.2 MG/DL; BILIRUBIN,TOTAL 1.9 MG/DL (0.1-1.0); CHOLESTEROL 148 MG/DL (< 200); HDL CHOLESTEROL 75 MG/DL (40-60); TOTAL PROTEIN 6.9 GM/DL (6.4-8.2); TRIGLYCERIDES 51 MG/DL (<150); VLDL CHOLESTEROL 10 MG/DL (5-40)
== END ==
LOC: LAB 08:49
PROVIDERS: ATTEND Internal Medicine Cardiovascular Disease
DX: I08.2 Rheumatic disorders of both aortic and tricuspid valves (principal); I50.30 Unspecified diastolic (congestive) heart failure; R09.89 Other specified symptoms and signs involving the circulatory and respiratory systems
CPT/HCPCS: 36415; 80061; 80076

== ENCOUNTER → 2020-04-25 | Outpatient (CLI) | payer MEDICARE, OTHER | LOC: CARD 14:07 | PROVIDERS: ATTEND Internal Medicine Cardiovascular Disease | DX: I08.0 Rheumatic disorders of both mitral and aortic valves (principal); I10 Essential (primary) hypertension; G47.33 Obstructive sleep apnea (adult) (pediatric) ==

== ENCOUNTER 2020-09-19 10:50 | Inpatient (IN) | payer MEDICARE, OTHER ==
[~2020-09-19 10:50] MED LIST changes: +AMLO-250 PO; -AMLO5TAB9 PO; +ASPI-1238 PO; -ASPI-983 PO
[2020-09-19] MEDS ORDERED: NS IV 1000 ML 1,000 ML IV SCH (11:13)
[2020-09-19] MEDS ORDERED: dilTIAZem DRIP PRE-MIX 125 ML IV SCH (11:15)
--- NOTE | 2020-09-19 11:45 | NUR ---
Blood Culture #2 drawn from L rosa m et sent to lab.
[2020-09-19 12:06] LABS: BASOPHILS % (AUTO) 0 % (0-10); EOSINOPHILS # (AUTO) 0.2 10^3/uL (0.0-0.3); EOSINOPHILS % (AUTO) 2 % (0-10); HEMATOCRIT 42 % (35-52); HEMOGLOBIN 14.3 g/dL (11.5-16.0); LYMPHOCYTES % (AUTO) 12 % (12-44); MEAN CORPUSCULAR HEMOGLOBIN 28 pg (25-34); MEAN CORPUSCULAR HGB CONC 34 g/dL (32-36); MEAN CORPUSCULAR VOLUME 82 fL (80-99); MEAN PLATELET VOLUME 9.4 fL (9.0-12.2); MONOCYTES % (AUTO) 13 % (0-12); NEUTROPHILS # (AUTO) 5.9 10^3/uL (1.8-7.8); NEUTROPHILS % (AUTO) 72 % (42-75); PLATELET COUNT 312 10^3/uL (130-400); WHITE BLOOD COUNT 8.2 10^3/uL (4.3-11.0)
[2020-09-19 12:13] LABS: ALBUMIN 3.9 GM/DL (3.2-4.5); CHLORIDE 81 MMOL/L (98-107)
[2020-09-19 12:15] LABS: CALCIUM 8.7 MG/DL (8.5-10.1)
[2020-09-19 12:16] LABS: GLUCOSE 113 MG/DL (70-105); TOTAL PROTEIN 6.7 GM/DL (6.4-8.2)
[2020-09-19 12:17] LABS: CARBON DIOXIDE 29 MMOL/L (21-32)
[2020-09-19 12:18] LABS: BILIRUBIN,TOTAL 1.6 MG/DL (0.1-1.0)
[2020-09-19 12:19] LABS: ALKALINE PHOSPHATASE 59 U/L (40-136); CREATININE SERUM 0.79 MG/DL (0.60-1.30); GFR ESTIMATED > 60
[2020-09-19 12:20] LABS: BUN/CREATININE RATIO 18; PROTHROMBIN TIME PATIENT 13.3 SEC (12.2-14.7)
[2020-09-19 12:22] LABS: ALANINE AMINOTRANSFERASE < 6 U/L (0-55); MAGNESIUM 2.2 MG/DL (1.6-2.4)
[2020-09-19 12:25] LABS: BILIRUBIN,URINE NEGATIVE (NEGATIVE); CLARITY,URINE SL CLOUDY; COLOR,URINE YELLOW; GLUCOSE, URINE (UA) NEGATIVE (NEGATIVE); KETONES,URINE NEGATIVE (NEGATIVE); LEUKOCYTE ESTERASE ,URINE 2+ (NEGATIVE); NITRITE,URINE NEGATIVE (NEGATIVE); PROTEIN,URINE 1+ (NEGATIVE); SODIUM 123 MMOL/L (135-145)
[2020-09-19 12:35] LABS: BACTERIA,URINE MODERATE /HPF; WBC,URINE 25-50 /HPF
--- NOTE | 2020-09-19 12:47 | Diagnostic Imaging Report ---
EXAMINATION: Chest radiograph, portable AP view. DATE: 09/19/2020 12:33 PM hours. INDICATION: 85-year-old female, cough. Chest pain. History of Covid infection on August 13, 2020. COMPARISON: September 13, 2019. FINDINGS: Stable overall appearance of the cardiomediastinal silhouette. There is no identified pneumothorax. There is no large pleural effusion. There is nonspecific peripheral airspace consolidation in the left midlung and left lower lobe which is new since September 13, 2019. IMPRESSION: 1. New peripheral airspace consolidation in the left mid and lower lung zones which may relate to multifocal pneumonia. Atypical infections including Covid 19 would be in the differential diagnosis. This finding is also not specific. Other alveolar consolidative processes are also be in the differential diagnosis. This would include but not be limited to pulmonary infarcts and aspiration. Report was faxed to [facility] by miriam at 12:45PM. Dictated by: Dictated on workstation # [id number]
[2020-09-19] MEDS ORDERED: AMIODARONE INJECTION 450 MG in D5W IV SOLUTION (EXCEL) 250 ML IV SCH (13:45)
[2020-09-19] MEDS ORDERED: KCL 10 MEQ TAB (MICRO K) PO ONE (13:45)
[2020-09-19] MEDS ORDERED: cefTRIAXone FOR IV USE 1,000 MG in WATER (STERILE) FOR INJECTION 10 ML IV ONE (13:45)
[2020-09-19] MEDS ORDERED: AMIODARONE INJECTION 150 MG in D5W 100 ML IVPB 100 ML IV ONE (13:45)
[2020-09-19] MEDS ORDERED: ENOXAPARIN 60 MG/0.6 ML (LOVENOX) SYR SC ONE (14:00)
--- NOTE | 2020-09-19 14:05 | ED General ---
General Chief Complaint: Cardiac/General Problems Stated Complaint: COVID + Nursing Triage Note: Pt arrives via [facility] ems cart from home with c/o generalized weakness, decreased SPO2 sat, confusion, et productive cough. Pt arrives utilizing 2L I2 via NC with initial SPO2 97%. Pt reports she was diagnosed with COVID-19 on 09/13/20. Pt reports productive cough. Denies fever or CP. A&OX4. Nursing Sepsis Screen: No Definite Risk Source of Information: Patient, EMS, Police Exam Limitations: No Limitations History of Present Illness Date Seen by Provider: Sep 19, 2020 Time Seen by Provider: 10:51 Initial Comments This 85-year-old woman presents to the emergency room via EMS feeling confused and with generalized weakness. She was diagnosed with COVID-19 from a swab on September 13. She is alert and oriented. Oxygen saturations are in the upper 90s on 2 L by nasal cannula. She is reported to be in the lower 90s on room air by the fire department on arrival. On assessment she appears to be in atrial fibrillation with RVR. She denies any history of arrhythmias. She has seen Dr. Alvarado in the past for other cardiac issues. Dr. Carolina is her primary care provider. Allergies and Home Medications Allergies Coded Allergies: No Known Drug Allergies (Unverified , 01/02/19) Home Medications Acetaminophen 500 Mg Tablet, 500 MG PO HS, (Reported) Amlodipine Besylate 5 Mg Tablet, 5 MG PO DAILY, (Reported) Aspirin 81 Mg Tablet.dr, 81 MG PO 1800, (Reported) Carbidopa/Levodopa 1 Each Tablet, 1 EACH PO TID, (Reported) TAKES 3 TIMES DAILY AT 0715,1215 AND 1715 Cholecalciferol (Vitamin D3) 2,000 Unit Capsule, 2,000 UNIT PO 1200, (Reported) Gabapentin 300 Mg Capsule, 300 MG PO HS, (Reported) Hydrochlorothiazide 25 Mg Tablet, 25 MG PO DAILY, (Reported) L.acidoph & Paracasei,B.lactis 1 Each Capsule, 2 CAP PO DAILY, (Reported) Lutein 20 Mg Tablet, 20 MG PO BID, (Reported) Metoprolol Succinate 25 Mg Tab.er.24h, 25 MG PO 1800, (Reported) Multivitamin 1 Each Tablet, 1 EACH PO BID, (Reported) [place] 3 Polyunsat Fatty Acids 1,000 Mg Cap, 1,000 MG PO TID, (Reported) Polyvinyl Alcohol/Povidone/Pf 1 Each Droperette, 2 DROPS OU PRN PRN for DRY EYES, (Reported) Ubiquinol 100 Mg Capsule, 100 MG PO DAILY, (Reported) [Pqq] , 1 CAP PO DAILY, (Reported) [[place]] , 1 CAP PO BID WITH MEALS, (Reported) Patient Home Medication List Home Medication List Reviewed: Yes Review of Systems Review of Systems Constitutional: see HPI, weakness EENTM: no symptoms reported Respiratory: see HPI, cough Cardiovascular: see HPI Gastrointestinal: no symptoms reported Genitourinary: no symptoms reported : No Musculoskeletal: no symptoms reported Skin: no symptoms reported Psychiatric/Neurological: See HPI Hematologic/Lymphatic: No Symptoms Reported Immunological/Allergic: no symptoms reported Past Fkwajpt-Czyjfp-Kjuymy Hx Past Med/Social Hx: Reviewed Nursing Past Med/Soc Hx Patient Social History Alcohol Use: Denies Use Recreational Drug Use: No Smoking Status: Former Smoker Former Smoker, Quit: Jan 03, 1984 2nd Hand Smoke Exposure: Yes Recent Foreign Travel: No Contact w/Someone Who Travel: No Recent Infectious Disease Expo: No Recent Hopitalizations: No Immunizations Up To Date Date of Pneumonia Vaccine: Sep 13, 2015 Date of Influenza Vaccine: Aug 08, 2018 Seasonal Allergies Seasonal Allergies: Yes (MILD) Past Medical History Surgeries: Yes (BACK, L CAROTID, FEMUR FX-PLATES/PINS, 39% blocked LCA) Hysterectomy, Vascular Surgery Respiratory: No Cardiac: Yes High Cholesterol, Hypertension, 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") Headaches /Migraines, TIA Reproductive Disorders: No SKEIN DYER History: Hysterectomy Sexually Transmitted Disease: No HIV/AIDS: No Genitourinary: No Gastrointestinal: Yes Chronic Constipation Musculoskeletal: Yes (USES WALKER, MILD ARTHRITIS ) Arthritis Endocrine: No HEENT: Yes (GLASSES, DENTURES, ) Macular Degeneration Loss of Vision: Bilateral Hearing Impairment: Denies Cancer: No Psychosocial: No Integumentary: Yes (RASH ON BACK) Blood Disorders: No Adverse Reaction/Blood Tranf: No (N/A) Family Medical History Reviewed Nursing Family Hx Cataract 09 SISTER Chest pain 03 FATHER Family history: Arthritis 03 FATHER Family history: Cardiovascular disease 03 FATHER Family history: Diabetes mellitus 03 MOTHER Family history: Gastrointestinal disease 03 FATHER Family history: Hypertension 03 MOTHER Hearing loss 03 FATHER Heart disease 03 FATHER Myocardial infarction 03 FATHER Parkinson's disease 03 MOTHER Psychotic disorder 09 SISTER No Family History of: Abdominal aortic aneurysm [place]'s disease Alcoholism Aphasia Cancer Cancer of colon Congenital heart disease Congestive heart failure Cystic fibrosis Dementia Dysphagia Family history: Allergy Family history: Alzheimer's disease Family history: Asthma Family history: Breast disease Family history: Coronary thrombosis Family history: Glaucoma Family history: Osteoporosis Family history: Thyroid disorder Headache Hereditary disease History of - anemia History of - disorder History of - respiratory disease History of drug abuse Human immunodeficiency virus (HIV) seropositivity Hypercholesterolemia Infertile Kidney disease Malignant neoplasm of lung Prostate cancer Seizure disorder Stroke Tuberculosis Visual impairment Heart Disease, Diabetes, Hypertension, Psychiatric Problems Physical Exam Vital Signs Vital Signs - First Documented 09/19/20 09/19/20 10:50 11:00 Temp 36.0 Pulse 156 Resp 20 B/P (MAP) 116/78 (91) Pulse Ox 97 O2 Delivery Nasal Cannula O2 Flow Rate 2.00 Capillary Refill : Less Than 3 Seconds Height, Weight, BMI Height: 5'2.00" Weight: 150lbs. 0.0oz. 68.302911mi; BMI Method:Estimated General Appearance: No Apparent Distress, WD/WN HEENT: PERRL/EOMI, Normal ENT Inspection Neck: Normal Inspection Respiratory: Lungs Clear, Normal Breath Sounds, No Accessory Muscle Use, No Respiratory Distress Cardiovascular: No Edema, Irregularly Irregular, Tachycardia Gastrointestinal: Normal Bowel Sounds, Non Tender, Soft Extremity: Normal Inspection, No Pedal Edema Neurologic/Psychiatric: Alert, Oriented x3, No Motor/Sensory Deficits, Normal Mood/Affect, doctor of optometry II-XII Norm as Tested Skin: Normal Color, Warm/Dry Focused Exam Lactate Level 09/19/20 11:15: Lactic Acid Level 1.00 Lactic Acid Level Progress/Results/Core Measures Suspected Sepsis Recent Fever Within 48 Hours: No Infection Criteria Present: Documented Infection New/Unexplained Altered Menta: No Sepsis Screen: No Definite Risk SIRS Temperature: Pulse: 156 Respiratory Rate: 20 Laboratory Tests 09/19/20 11:15: White Blood Count 8.2 Blood Pressure 116 /78 Mean: 91 09/19/20 11:15: Lactic Acid Level 1.00 Laboratory Tests 09/19/20 11:15: Creatinine 0.79, INR Comment 1.0, Platelet Count 312, Total Bilirubin 1.6H Results/Orders Lab Results Laboratory Tests Test 09/19/20 11:15 09/19/20 17:00 Range/Units White Blood Count 8.2 4.3-11.0 10^3/uL Red Blood Count 5.13 H 3.80-5.11 10^6/uL Hemoglobin 14.3 11.5-16.0 g/dL Hematocrit 42 35-52 % Mean Corpuscular Volume 82 80-99 fL Mean Corpuscular Hemoglobin 28 25-34 pg Mean Corpuscular Hemoglobin Concent 34 32-36 g/dL Red Cell Distribution Width 12.9 10.0-14.5 % Platelet Count 312 130-400 10^3/uL Mean Platelet Volume 9.4 9.0-12.2 fL Immature Granulocyte % (Auto) 1 % Neutrophils (%) (Auto) 72 42-75 % Lymphocytes (%) (Auto) 12 12-44 % Monocytes (%) (Auto) 13 H 0-12 % Eosinophils (%) (Auto) 2 0-10 % Basophils (%) (Auto) 0 0-10 % Neutrophils # (Auto) 5.9 1.8-7.8 10^3/uL Lymphocytes # (Auto) 1.0 1.0-4.0 10^3/uL Monocytes # (Auto) 1.0 0.0-1.0 10^3/uL Eosinophils # (Auto) 0.2 0.0-0.3 10^3/uL Basophils # (Auto) 0.0 0.0-0.1 10^3/uL Immature Granulocyte # (Auto) 0.1 0.0-0.1 10^3/uL Prothrombin Time 13.3 12.2-14.7 SEC INR Comment 1.0 0.8-1.4 Activated Partial Thromboplast Time 28 24-35 SEC Urine Color YELLOW Urine Clarity SL CLOUDY Urine pH 6.0 5-9 Urine Specific [place] 1.010 L 1.016-1.022 Urine Protein 1+ H NEGATIVE Urine Glucose (UA) NEGATIVE NEGATIVE Urine Ketones NEGATIVE NEGATIVE Urine Nitrite NEGATIVE NEGATIVE Urine Bilirubin NEGATIVE NEGATIVE Urine Urobilinogen 2.0 < = 1.0 MG/DL Urine Leukocyte Esterase 2+ H NEGATIVE Urine RBC (Auto) TRACE-I NEGATIVE Urine RBC 2-5 H /HPF Urine WBC 25-50 H /HPF Urine Squamous Epithelial Cells 2-5 /HPF Urine Crystals NONE /LPF Urine Bacteria MODERATE H /HPF Urine Casts NONE /LPF Urine Mucus NEGATIVE /LPF Urine Culture Indicated YES Sodium Level 123 *L 121 *L 135-145 MMOL/L Potassium Level 3.0 L 3.6-5.0 MMOL/L Chloride Level 81 L 98-107 MMOL/L Carbon Dioxide Level 29 21-32 MMOL/L Anion Gap 13 5-14 MMOL/L Blood Urea Nitrogen 14 7-18 MG/DL Creatinine 0.79 0.60-1.30 MG/DL Estimat Glomerular Filtration Rate > 60 BUN/Creatinine Ratio 18 Glucose Level 113 H 70-105 MG/DL Lactic Acid Level 1.00 0.50-2.00 MMOL/L Calcium Level 8.7 8.5-10.1 MG/DL Corrected Calcium 8.8 8.5-10.1 MG/DL Magnesium Level 2.2 1.6-2.4 MG/DL Total Bilirubin 1.6 H 0.1-1.0 MG/DL Aspartate Amino Transf (AST/SGOT) 18 5-34 U/L Alanine Aminotransferase (ALT/SGPT) < 6 0-55 U/L Alkaline Phosphatase 59 40-136 U/L Myoglobin 83.3 10.0-92.0 NG/ML Troponin I < 0.028 <0.028 NG/ML Total Protein 6.7 6.4-8.2 GM/DL Albumin 3.9 3.2-4.5 GM/DL Thyroid Stimulating Hormone (TSH) 0.72 0.35-4.94 UIU/ML My Orders Orders - HUGH MYLES MD Cbc With Automated Diff (09/19/20 11:02) Magnesium (09/19/20 11:02) Chest 1 View, Ap/Pa Only (09/19/20 11:02) Ekg Tracing (09/19/20 11:02) Comprehensive Metabolic Panel (09/19/20 11:02) Myoglobin Serum (09/19/20 11:02) Protime With Inr (09/19/20 11:02) Partial Thromboplastin Time (09/19/20 11:02) O2 (09/19/20 11:02) Monitor-Rhythm Ecg Trace Only (09/19/20 11:02) Lipid Panel (09/20/20 06:00) Ed Iv/Invasive Line Start (09/19/20 11:02) Troponin I (09/19/20 11:02) Ns Iv 1000 Ml (Sodium Chloride 0.9%) (09/19/20 11:13) Diltiazem Injection (Cardizem Injection) (09/19/20 11:15) Diltiazem Drip Pre-Mix (Cardizem Drip Pr (09/19/20 11:15) Diltiazem Injection (Cardizem Injection) (09/19/20 11:15) Blood Culture (09/19/20 12:16) Sputum Culture (09/19/20 12:16) Urinalysis (09/19/20 12:16) Urine Culture (09/19/20 12:16) Vital Signs Adult Sepsis Patie Q15M (09/19/20 12:16) Remove Rings In Anticipation O (09/19/20 12:16) Lactic Acid Analyzer (09/19/20 12:16) Amiodarone Injection (Cordarone Injectio (09/19/20 13:45) Amiodarone Injection (Cordarone Injectio (09/19/20 13:45) Potassium Chloride (Tablet) (Klor Con Ta (09/19/20 13:45) Ceftriaxone For Iv Use (Rocephin For I (09/19/20 13:45) Dexamethasone Injection (Decadron Inje (09/19/20 14:00) Enoxaparin Injection (Lovenox Injection) (09/19/20 14:00) Ekg Tracing (09/19/20 15:31) Medications Given in ED Current Medications Medications Dose Ordered Sig/Emiliana Route Start Time Stop Time Status Last Admin Dose Admin Amiodarone HCl 150 mg/Dextrose 103 ml @ 600 mls/hr ONCE ONCE IV 09/19/20 13:45 09/19/20 13:55 DC 09/19/20 14:26 600 MLS/HR Ceftriaxone Sodium 1000 mg/ Sterile Water 10 ml @ 200 mls/hr ONCE ONCE IV 09/19/20 13:45 09/19/20 13:47 DC 09/19/20 14:13 200 MLS/HR Dexamethasone Sodium Phosphate 4 mg ONCE ONCE IV 09/19/20 14:00 09/19/20 14:01 DC 09/19/20 14:13 4 MG Diltiazem HCl 5 mg ONCE ONCE IVP 09/19/20 11:15 09/19/20 11:16 DC 09/19/20 11:36 5 MG Enoxaparin Sodium 60 mg ONCE ONCE SC 09/19/20 14:00 09/19/20 14:01 DC 09/19/20 14:44 60 MG Potassium Chloride 40 meq ONCE ONCE PO 09/19/20 13:45 09/19/20 13:46 DC 09/19/20 14:35 40 MEQ Vital Signs/I&O 09/19/20 09/19/20 09/19/20 09/19/20 10:50 11:00 16:00 16:10 Temp 36.0 Pulse 156 Resp 20 B/P (MAP) 116/78 (91) 141/86 Pulse Ox 97 97 94 O2 Delivery Nasal Cannula Nasal Cannula Nasal Cannula Nasal Cannula O2 Flow Rate 2.00 2.00 2.00 2.00 09/19/20 09/19/20 09/19/20 09/19/20 16:13 16:15 16:30 16:45 Temp 36.3 Pulse 92 86 82 Resp 21 22 B/P (MAP) 141/86 153/96 128/70 Pulse Ox 93 89 94 O2 Delivery Nasal Cannula Nasal Cannula Nasal Cannula O2 Flow Rate 2.00 2.00 2.00 Capillary Refill : Less Than 3 Seconds Blood Pressure Mean: 91 Progress Note #1: Progress Note Patient was found to be in atrial fibrillation with RVR. Cardizem bolus and drip were initiated. She remained tachycardic with a heart rate in the 110s and 120s after titrating up on Cardizem. Dr. Gamez was contacted and consulted. He recommended starting an amiodarone bolus and drip. Potassium chloride 40 mEq orally was given for replacement of potassium. A liter of normal saline was infused to start treatment of the hyponatremia and to help with her tachycardia. Lovenox was given for stroke prophylaxis. CODE STATUS was discussed with patient and she requests to remain full code. Dexamethasone was administered for borderline hypoxia. Rocephin was given for treatment of UTI. Progress Note #2: Progress Note Patient converted to sinus rhythm prior to transferring to the ICU. Dr. Garvin and Dr. Gamez were updated. ECG Initial ECG Impression Date: Sep 19, 2020 Initial ECG Impression Time: 11:08 Initial ECG Rate: 150 Initial ECG Rhythm: A Fib/Flutter Initial ECG Impression: Atrial Fibrillation w/RVR Comment Atrial fibrillation with RVR. No STEMI. Diagnostic Imaging Diagonstic Imaging: Xray Plain Films/CT/US/NM/MRI: chest Comments NAME: EVA GANNON [facility] REC#: [id number] PT STATUS: REG ER : 1935 PHYSICIAN: HUGH MYLES MD ADMIT DATE: 09/19/20/ER Signed Date of Exam:09/19/20 CHEST 1 VIEW, AP/PA ONLY EXAMINATION: Chest radiograph, portable AP view. DATE: 09/19/2020 12:33 PM hours. INDICATION: 85-year-old female, cough. Chest pain. History of Covid infection on August 13, 2020. COMPARISON: September 13, 2019. FINDINGS: Stable overall appearance of the cardiomediastinal silhouette. There is no identified pneumothorax. There is no large pleural effusion. There is nonspecific peripheral airspace consolidation in the left midlung and left lower lobe which is new since September 13, 2019. IMPRESSION: 1. New peripheral airspace consolidation in the left mid and lower lung zones which may relate to multifocal pneumonia. Atypical infections including Covid 19 would be in the differential diagnosis. This finding is also not specific. Other alveolar consolidative processes are also be in the differential diagnosis. This would include but not be limited to pulmonary infarcts and aspiration. Report was faxed to [facility] by kiki at 12:45PM. Dictated by: Dictated on workstation # [id number] Dict: 09/19/20 1235 Trans: 09/19/20 1415 [id number] Interpreted by: FRANK FARRAR MD Electronically signed by: FRANK FARRAR MD 09/19/20 1415 Reviewed: Reviewed by Or Departure Communication (Admissions) Time/Spoke to Admitting Phy: 13:55 Dr. Garvin Time/Spoke to Consulting Phy: 13:30 Dr. Gamez Impression Primary Impression: Atrial fibrillation with RVR Additional Impressions: COVID-19 Hypokalemia Hyponatremia Urinary tract infection Qualified Codes: N39.0 - Urinary tract infection, site not specified Disposition: ADMITTED INPATIENT Condition: Improved Admissions Decision to Admit Reason: Admit from ER (General) Decision to Admit/Date: Sep 19, 2020 Time/Decision to Admit Time: 10:56 Departure-Patient Inst. Referrals: MOMO CAROLINA MD (PCP/Family) Primary Care Physician HUGH MYLES MD Sep 19, 2020 14:05
--- NOTE | 2020-09-19 14:35 | NUR ---
Patients COVID positive as of 09/09/20 per [facility].
--- NOTE | 2020-09-19 15:24 | NUR ---
Per pt request, contacted daughter, Arvind Lugo, regarding pt update et admission.
[2020-09-19 16:00] VITALS: BP 132/71
[2020-09-19] MEDS: dilTIAZem DRIP 125 MG/125 ML DRIP IV SCH ×2 (16:20→20:52)
[2020-09-19] MEDS: NS IV 1000 ML 1,000 ML IV SCH (16:22)
[2020-09-19] MEDS ORDERED: CATHETER FLUSH 10 ML SYR IV PRN (16:30)
[2020-09-19] MEDS ORDERED: PHARMACY TO DOSE PO SCH (16:30)
[2020-09-19] MEDS ORDERED: cefTRIAXone 1,000 MG/SWFI 10 ML IV PUSH IV SCH ×2 (16:30)
[2020-09-19] MEDS ORDERED: AMIODARONE 450 MG/250 ML D5W EXCEL IV SCH ×2 (16:30)
--- NOTE | 2020-09-19 17:53 | Consultation-Cardiology ---
HPI-Cardiology Cardiology Consultation: Date of Consultation 09/19/20 Date of Admission Attending Physician Faith Garvin MD Admitting Physician Salima Carolina MD Consulting Physician Raj GAMEZ MD HPI: Time Seen by a Provider: 16:00 Chief Complaint: Atrial fibrillation with RVR This is a 85-year-old lady who presented to the ER with confusion and generalized weakness. She has history of COVID-19 recently. Oxygen saturation was upper 90s on 2 L of nasal cannula. She was found to be in atrial fibrillation with RVR. She has followed with Dr. Alvarado in the past. She denies active smoking. No pertinent family history. Review of Systems-Cardiology Review of Systems Constitutional: As described under HPI; No As described under HPI, No no symptoms reported, No chills, No fever, No lightheadedness Eyes: No As described under HPI, No no symptoms reported, No blindness, No blurred vision, No contact lenses, No drainage, No decreased acuity, No foreign body sensation, No pain, No vision change Ears/Nose/Throat: No As described under HPI, No no symptoms reported, No chronic hearing loss, No ear discharge, No ear pain, No nasal drainage, No ulcerations Respiratory: No no symptoms reported; As described under HPI; No As described under HPI, No cough, No orthopnea, No shortness of breath, No SOB with excertion Cardiovascular: No no symptoms reported; As described under HPI; No As described under HPI, No chest pain, No edema, No irregular heart rate, No ligh theadedness; palpitations Gastrointestinal: No no symptoms reported, No As described under HPI, No abdomen distended, No abdominal pain, No blood streaked bowels, No constipation, No diarrhea, No nausea, No vomiting, No stool coloration changes Genitourinary: No As described under HPI, No burning, No dysuria, No discharge, No frequency, No flank pain, No hematuria, No urgency : No Skin: No rash, No skin related problems, No ulcerations Psychiatric/Neurological: No anxiety, No depression, No seizure, No focal weakness, No syncope Hematologic: No bleeding abnormalities WZD-[id number]-Ndyirf Hx Patient Social History Alcohol Use: Denies Use Recreational Drug Use: No Smoking Status: Former Smoker 2nd Hand Smoke Exposure: Yes Recent Foreign Travel: No Recent Infectious Disease Expo: No Hospitalization with Isolation: Airborne Immunizations Up To Date Date of Pneumonia Vaccine: Sep 13, 2015 Date of Influenza Vaccine: Aug 08, 2018 Past Medical History PMH As described under Assessment. Family Medical History Family History: Cataract 09 SISTER Chest pain 03 FATHER Family history: Arthritis 03 FATHER Family history: Cardiovascular disease 03 FATHER Family history: Diabetes mellitus 03 MOTHER Family history: Gastrointestinal disease 03 FATHER Family history: Hypertension 03 MOTHER Hearing loss 03 FATHER Heart disease 03 FATHER Myocardial infarction 03 FATHER Parkinson's disease 03 MOTHER Psychotic disorder 09 SISTER No Family History of: Abdominal aortic aneurysm Lynch's disease Alcoholism Aphasia Cancer Cancer of colon Congenital heart disease Congestive heart failure Cystic fibrosis Dementia Dysphagia Family history: Allergy Family history: Alzheimer's disease Family history: Asthma Family history: Breast disease Family history: Coronary thrombosis Family history: Glaucoma Family history: Osteoporosis Family history: Thyroid disorder Headache Hereditary disease History of - anemia History of - disorder History of - respiratory disease History of drug abuse Human immunodeficiency virus (HIV) seropositivity Hypercholesterolemia Infertile Kidney disease Malignant neoplasm of lung Prostate cancer Seizure disorder Stroke Tuberculosis Visual impairment Allergies and Home Medications Allergies Coded Allergies: No Known Drug Allergies (Unverified , 01/02/19) Home Medications Acetaminophen 500 Mg Tablet, 500 MG PO HS, (Reported) Amlodipine Besylate 5 Mg Tablet, 5 MG PO DAILY, (Reported) Aspirin 81 Mg Tablet.dr, 81 MG PO 1800, (Reported) Carbidopa/Levodopa 1 Each Tablet, 1 EACH PO TID, (Reported) TAKES 3 TIMES DAILY AT 0715,1215 AND 1715 Cholecalciferol (Vitamin D3) 2,000 Unit Capsule, 2,000 UNIT PO 1200, (Reported) Gabapentin 300 Mg Capsule, 300 MG PO HS, (Reported) Hydrochlorothiazide 25 Mg Tablet, 25 MG PO DAILY, (Reported) L.acidoph & Paracasei,B.lactis 1 Each Capsule, 2 CAP PO DAILY, (Reported) Lutein 20 Mg Tablet, 20 MG PO BID, (Reported) Metoprolol Succinate 25 Mg Tab.er.24h, 25 MG PO 1800, (Reported) Multivitamin 1 Each Tablet, 1 EACH PO BID, (Reported) [place] 3 Polyunsat Fatty Acids 1,000 Mg Cap, 1,000 MG PO TID, (Reported) Polyvinyl Alcohol/Povidone/Pf 1 Each Droperette, 2 DROPS OU PRN PRN for DRY EYES, (Reported) Ubiquinol 100 Mg Capsule, 100 MG PO DAILY, (Reported) [Pqq] , 1 CAP PO DAILY, (Reported) [[place]] , 1 CAP PO BID WITH MEALS, (Reported) Patient Home Medication List Home Medication List Reviewed: Yes Physical Exam-Cardiology Physical Exam Vital Signs/I&O 09/19/20 09/19/20 09/19/20 09/19/20 10:50 11:00 16:00 16:10 Temp 36.0 Pulse 156 Resp 20 B/P (MAP) 116/78 (91) 141/86 Pulse Ox 97 97 94 O2 Delivery Nasal Cannula Nasal Cannula Nasal Cannula Nasal Cannula O2 Flow Rate 2.00 2.00 2.00 2.00 09/19/20 09/19/20 09/19/20 09/19/20 16:13 16:15 16:30 16:45 Temp 36.3 Pulse 92 86 82 Resp 21 22 B/P (MAP) 141/86 153/96 128/70 Pulse Ox 93 89 94 O2 Delivery Nasal Cannula Nasal Cannula Nasal Cannula O2 Flow Rate 2.00 2.00 2.00 Capillary Refill : Less Than 3 Seconds Constitutional: appears stated age, AAO x 3; No apparent distress; well- developed, well-nourished HEENT: PERRL; No discharge; hearing is well preserved, oral hygience is good; No ulceration, No xanthelasmas are seen Neck: No carotid bruit; carotid pulses are 2 + bilaterally Respiratory: chest is bilaterally symmetric, lungs clear to auscultation Cardiovascular: regular rate-rhythm, S1 and S2 Gastrointestinal: soft, audible bowel sounds; No spleenomegaly Rectal: deferred Extremities: normal range of motion, non-tender, normal inspection; No clubbing, No cyanosis; no lower extremity edema bilateral; No significant edema Neurologic/Psychiatric: no motor/sensory deficits, alert, normal mood/affect, oriented x 3, power is 5/5 both on sides Skin: normal color; No rash, No ulcerations Data Review Labs Laboratory Tests 09/19/20 11:15: White Blood Count 8.2, Red Blood Count 5.13H, Hemoglobin 14.3, Hematocrit 42, Mean Corpuscular Volume 82, Mean Corpuscular Hemoglobin 28, Mean Corpuscular Hemoglobin Concent 34, Red Cell Distribution Width 12.9, Platelet Count 312, Mean Platelet Volume 9.4, Immature Granulocyte % (Auto) 1, Neutrophils (%) (Auto) 72, Lymphocytes (%) (Auto) 12, Monocytes (%) (Auto) 13H, Eosinophils (%) (Auto) 2, Basophils (%) (Auto) 0, Neutrophils # (Auto) 5.9, Lymphocytes # (Auto) 1.0, Monocytes # (Auto) 1.0, Eosinophils # (Auto) 0.2, Basophils # (Auto) 0.0, Immature Granulocyte # (Auto) 0.1, Prothrombin Time 13.3, INR Comment 1.0, Activated Partial Thromboplast Time 28, Urine Color YELLOW, Urine Clarity SL CLOUDY, Urine pH 6.0, Urine Specific [place] 1.010L, Urine Protein 1+H, Urine Glucose (UA) NEGATIVE, Urine Ketones NEGATIVE, Urine Nitrite NEGATIVE, Urine Bilirubin NEGATIVE, Urine Urobilinogen 2.0, Urine Leukocyte Esterase 2+H, Urine RBC (Auto) TRACE-I, Urine RBC 2-5H, Urine WBC 25-50H, Urine Squamous Epithelial Cells 2-5, Urine Crystals NONE, Urine Bacteria MODERATEH, Urine Casts NONE, Urine Mucus NEGATIVE, Urine Culture Indicated YES, Sodium Level 123*L, Potassium Level 3.0L, Chloride Level 81L, Carbon Dioxide Level 29, Anion Gap 13, Blood Urea Nitrogen 14, Creatinine 0.79, Estimat Glomerular Filtration Rate > 60, BUN/Creatinine Ratio 18, Glucose Level 113H, Lactic Acid Level 1.00, Calcium Level 8.7, Corrected Calcium 8.8, Magnesium Level 2.2, Total Bilirubin 1.6H, Aspartate Amino Transf (AST/SGOT) 18, Alanine Aminotransferase (ALT/SGPT) < 6, Alkaline Phosphatase 59, Myoglobin 83.3, Troponin I < 0.028, Total Protein 6.7, Albumin 3.9 09/19/20 17:00: Sodium Level 121*L ECG Impression ECG Initial ECG Impression: Atrial Fibrillation w/RVR A/P-Cardiology Assessment/Admission Diagnosis COVID-19 positive, Atrial fibrillation with RVR Plan COVID-19 positive, deferred to the primary team. Atrial fibrillation with RVR, was started on amiodarone and Cardizem infusion. Patient converted to sinus rhythm. However when I was with the patient she would have brief runs of atrial fibrillation. Therefore we will continue amiodarone infusion overnight. We may change Cardizem to by mouth. Oral anticoagulation is recommended. Thank you for your consultation. Please call me if you have any questions. Dhiraj Gamez MD, FACP, FACC, FSCAI, FHRS, CCDS Interventional Cardiology Cardiac Electrophysiology Vascular Medicine and Endovascular Interventions Clinical Quality Measures DVT/VTE Risk/Contraindication: Risk Factor Score Per Nursin RFS Level Per Nursing on Admit: 3=High Raj GAMEZ MD Sep 19, 2020 17:53
[2020-09-19] MEDS: APIXABAN 5 MG (ELIQUIS) TABLET PO SCH (20:50)
[2020-09-20] MEDS ORDERED: ACETAMINOPHEN 325 MG TABLET PO ONE
[2020-09-20] MEDS: NS IV 1000 ML 1,000 ML IV SCH ×4 (00:31→17:57)
[2020-09-20 00:34] LABS: ABG BASE EXCESS 3.5 MMOL/L (-2.5-2.5); ABG OXYGEN SATURATION 98 % (94-100); ABG PCO2 31 MMHG (35-45); ABG PH 7.54 (7.37-7.43); ABG PO2 87 MMHG (79-93); ABG TCO2 27.4 MMOL/L (21.0-31.0); ALLENS TEST POSITIVE; INSPIRED O2 2; VENTILATOR NO
[2020-09-20 00:35] LABS: PATIENT TEMP 36
[2020-09-20] MEDS ORDERED: ENOXAPARIN 60 MG/0.6 ML (LOVENOX) SYR SC SCH (04:00)
[2020-09-20] MEDS ORDERED: KCL 20 MEQ TAB (K-DUR) PO SCH (06:00)
[2020-09-20] MEDS ORDERED: MAGNESIUM 1 GM/100 ML IVPB 100 ML IV SCH (06:00)
[2020-09-20] MEDS ORDERED: POTASSIUM CL 10MEQ/50ML IVPB 50 ML IV SCH (06:00)
[2020-09-20 06:15] LABS: BASOPHILS % (AUTO) 0 % (0-10); CHLORIDE 89 MMOL/L (98-107); EOSINOPHILS % (AUTO) 0 % (0-10); HEMATOCRIT 39 % (35-52); HEMOGLOBIN 13.2 g/dL (11.5-16.0); LYMPHOCYTES # (AUTO) 0.5 10^3/uL (1.0-4.0); LYMPHOCYTES % (AUTO) 8 % (12-44); MEAN CORPUSCULAR HEMOGLOBIN 28 pg (25-34); MEAN CORPUSCULAR HGB CONC 34 g/dL (32-36); MEAN CORPUSCULAR VOLUME 81 fL (80-99); MEAN PLATELET VOLUME 9.6 fL (9.0-12.2); MONOCYTES # (AUTO) 0.4 10^3/uL (0.0-1.0); MONOCYTES % (AUTO) 6 % (0-12); NEUTROPHILS # (AUTO) 5.9 10^3/uL (1.8-7.8); NEUTROPHILS % (AUTO) 85 % (42-75); PLATELET COUNT 301 10^3/uL (130-400); POTASSIUM 3.6 MMOL/L (3.6-5.0); WHITE BLOOD COUNT 6.9 10^3/uL (4.3-11.0)
[2020-09-20 06:16] LABS: CALCIUM 7.9 MG/DL (8.5-10.1)
[2020-09-20 06:17] LABS: GLUCOSE 164 MG/DL (70-105); TRIGLYCERIDES 80 MG/DL (<150); VLDL CHOLESTEROL 16 MG/DL (5-40)
[2020-09-20 06:18] LABS: CARBON DIOXIDE 22 MMOL/L (21-32)
[2020-09-20 06:21] LABS: CREATININE SERUM 0.72 MG/DL (0.60-1.30); GFR ESTIMATED > 60
[2020-09-20 06:22] LABS: BUN/CREATININE RATIO 15; CHOLESTEROL 127 MG/DL (< 200)
[2020-09-20 06:23] LABS: HDL CHOLESTEROL 44 MG/DL (40-60)
[2020-09-20 06:24] LABS: MAGNESIUM 2.1 MG/DL (1.6-2.4)
[2020-09-20 06:28] LABS: SODIUM 123 MMOL/L (135-145)
[2020-09-20] MEDS ORDERED: KCL 20 MEQ TAB (K-DUR) PO ONE (08:00)
[2020-09-20] MEDS: APIXABAN 5 MG (ELIQUIS) TABLET PO SCH ×2 (08:04→20:34)
[2020-09-20] MEDS: AMIODARONE 200 MG (CORDARONE) TAB PO SCH ×2 (09:56→20:34)
[2020-09-20] MEDS: dilTIAZem120 MG (CARDIZEM CD) CAP PO SCH (09:57)
--- NOTE | 2020-09-20 11:54 | History & Physical-Hospitalist ---
History of Present Illness HPI/Chief Complaint CC: AMS with COVID-19 HPI: This is an 85yoWF clinic patient of Dr Carolina who presented to the ER with confusion. Hypoxia noted on admit and COVID-19 was +. AF w/RVR noted so Cardiology placed on Amio and Cardizem drip. Moving to 4th floor. Prognosis guarded. Patient converted to NSR. CC: Confusion, Generalized weakness. Neurologic: Confusion No pain reported No known neurological injury or deficit Cardiovascular: Patient comes in with suspected Afib. Cardizem bolus given Cardiology recommend Amiodarone bolus No other known CV problems at this time Currently on Amiodarone and Diltiazem Respiratory: O2 saturation 90s on 5L nasal cannula Not ventilated Xray shows consolidation in left mid and lower lobes. No identified pneumothorax Gastrointestinal: Hx of incontinence Patient self feeding no reported diarrhea or constipation no known GI bleed, no anemia to suspect GI bleed. Renal/Genitourinary: Patient has currently received 2100ml fluid Receiving normal saline at rate of 125/hr Alkalosis noted on ABG Hematologic: No abnormal coagulation studies No known active bleeds CBC normal No evidence of leukocytosis DVT prophylaxis Endocrine: Not a known diabetic No abormal sugars during hospital course so far. No evidence of hyper or hypothyroid Severe hyponatremia Infectious Disease: Covid + MSK: Generalized Weakness Uses Walker Has arthritis This patient was admitted yesterday on Sep 19 due to confusion and generalized weakness. She has a low O2 and required admission. Over the course of the last day she seems to be doing alright. Her vital signs have remained stable. There was severe hyponatremia that is improving. She is currently on Diltiazem and amiodarone for AFIB. She is continued to be monitored for any signs of worsening status. Source: RN/MD Exam Limitations: clinical condition Date Seen 09/20/20 Time Seen by a Provider: 11:00 Attending Physician Faith Garvin MD PCP Salima Carolina MD Referring Physician Date of Admission Sep 19, 2020 at 14:01 Home Medications & Allergies Home Medications Reviewed patient Home Medication Reconciliation performed by pharmacy medication reconciliations endoscope technician and/or nursing. Patients Allergies have been reviewed. Allergies Allergies Coded Allergies No Known Drug Allergies (Unverified01/02/19) Past Hpnitmv-Bupsfz-Qamsax Hx Past Med/Social Hx: Reviewed Nursing Past Med/Soc Hx, Reviewed and Corrections made Patient Social History Alcohol Use: Denies Use Recreational Drug Use: No Smoking Status: Former Smoker Former Smoker, Quit: Jan 03, 1984 2nd Hand Smoke Exposure: Yes Recent Foreign Travel: No Contact w/other who traveled: No Recent Hopitalizations: No Recent Infectious Disease Expo: No Immunizations Up To Date Date of Pneumonia Vaccine: Sep 13, 2015 Date of Influenza Vaccine: Aug 08, 2018 Seasonal Allergies Seasonal Allergies: Yes (MILD) Past Medical History Surgeries: Hysterectomy, Vascular Surgery Cardiac: Atrial Fibrillation, High Cholesterol, Hypertension, Valvular Heart Disease Neurological: Headaches /Migraines, TIA Reproductive: No Sexually Transmitted Disease: No HIV/AIDS: No Hysterectomy Gastrointestinal: Chronic Constipation Musculoskeletal: Arthritis HEENT: Macular Degeneration Loss of Vision: Bilateral Hearing Impairment: Denies History of Blood Disorders: No Adverse Reaction to Blood Aaron: No (N/A) Family History Reviewed Nursing Family Hx Cataract 09 SISTER Chest pain 03 FATHER Family history: Arthritis 03 FATHER Family history: Cardiovascular disease 03 FATHER Family history: Diabetes mellitus 03 MOTHER Family history: Gastrointestinal disease 03 FATHER Family history: Hypertension 03 MOTHER Hearing loss 03 FATHER Heart disease 03 FATHER Myocardial infarction 03 FATHER Parkinson's disease 03 MOTHER Psychotic disorder 09 SISTER No Family History of: Abdominal aortic aneurysm [place]'s disease Alcoholism Aphasia Cancer Cancer of colon Congenital heart disease Congestive heart failure Cystic fibrosis Dementia Dysphagia Family history: Allergy Family history: Alzheimer's disease Family history: Asthma Family history: Breast disease Family history: Coronary thrombosis Family history: Glaucoma Family history: Osteoporosis Family history: Thyroid disorder Headache Hereditary disease History of - anemia History of - disorder History of - respiratory disease History of drug abuse Human immunodeficiency virus (HIV) seropositivity Hypercholesterolemia Infertile Kidney disease Malignant neoplasm of lung Prostate cancer Seizure disorder Stroke Tuberculosis Visual impairment Heart Disease, Diabetes, Hypertension, Psychiatric Problems Review of Systems Constitutional: see HPI, malaise, weakness Psychiatric/Neurological: Other (confusion) Physical Exam Physical Exam Vital Signs Vital Signs - First Documented 09/19/20 09/19/20 10:50 11:00 Temp 36.0 Pulse 156 Resp 20 B/P (MAP) 116/78 (91) Pulse Ox 97 O2 Delivery Nasal Cannula O2 Flow Rate 2.00 Capillary Refill : Less Than 3 Seconds Height, Weight, BMI Height: 5'2.00" Weight: 150lbs. 0.0oz. [id number]; BMI Method:Estimated General Appearance: No Apparent Distress, Anxious, Chronically ill Respiratory: Chest Non Tender, Lungs Clear, Normal Breath Sounds, No Accessory Muscle Use, No Respiratory Distress Cardiovascular: Regular Rate, Rhythm, No Edema, No Gallop, No JVD, No Murmur, Normal Peripheral Pulses, Tachycardia Neurologic/Psychiatric: Alert, Disoriented Results Results/Procedures Labs Laboratory Tests 09/19/20 11:15 09/19/20 17:00 09/19/20 23:54 09/20/20 05:30 09/20/20 07:50 09/20/20 12:20 09/20/20 17:05 09/21/20 05:28 Patient resulted labs reviewed. Assessment/Plan Admission Diagnosis Assessment: COVID-19 PNA Hypoxia CHF AF w/RVR Advanced age Plan: Move to [facility] Evaluate code status O2 Cardiology appreciated Admission Status: Inpatient Order (span 2 midnights) Reason for Inpatient Admission: covid 19 Diagnosis/Problems Diagnosis/Problems (1) COVID-19 Status: Acute (2) Atrial fibrillation with RVR Status: Acute (3) Hyponatremia Status: Acute (4) Hypokalemia Status: Acute (5) Benign essential hypertension Status: Acute Clinical Quality Measures DVT/VTE Risk/Contraindication: Risk Factor Score Per Nursin RFS Level Per Nursing on Admit: 3=High KATH WINN DO Sep 20, 2020 11:54
--- NOTE | 2020-09-20 12:38 | Progress Note ---
NORA WEBER MED STUDENT 09/20/20 1238: Progress Note CC: Confusion, Generalized weakness. Neurologic: Confusion No pain reported No known neurological injury or deficit Cardiovascular: Patient comes in with suspected Afib. Cardizem bolus given Cardiology recommend Amiodarone bolus No other known CV problems at this time Currently on Amiodarone and Diltiazem Respiratory: O2 saturation 90s on 5L nasal cannula Not ventilated Xray shows consolidation in left mid and lower lobes. No identified pneumothorax Gastrointestinal: Hx of incontinence Patient self feeding no reported diarrhea or constipation no known GI bleed, no anemia to suspect GI bleed. Renal/Genitourinary: Patient has currently received 2100ml fluid Receiving normal saline at rate of 125/hr Alkalosis noted on ABG Hematologic: No abnormal coagulation studies No known active bleeds CBC normal No evidence of leukocytosis DVT prophylaxis Endocrine: Not a known diabetic No abormal sugars during hospital course so far. No evidence of hyper or hypothyroid Severe hyponatremia Infectious Disease: Covid + MSK: Generalized Weakness Uses Walker Has arthritis This patient was admitted yesterday on Sep 19 due to confusion and generalized weakness. She has a low O2 and required admission. Over the course of the last day she seems to be doing alright. Her vital signs have remained stable. There was severe hyponatremia that is improving. She is currently on Diltiazem and amiodarone for AFIB. She is continued to be monitored for any signs of worsening status. Supervisory-Addendum Brief Verification & Attestation Participated in pt care: history, physical Personally performed: exam, history Care discussed with: other Procedures: n/a SELENA WINN DO 09/21/20 0632: Supervisory-Addendum Brief Verification & Attestation Participated in pt care: history, MDM, physical Personally performed: exam, history, MDM, supervision of care Care discussed with: Medical Student Procedures: n/a Results interpretation: Verified all documentation Verification and Attestation of Medical Student E/M Service A medical student performed and documented this service in my presence. I reviewed and verified all information documented by the medical student and made modifications to such information, when appropriate. I personally performed the physical exam and medical decision making. Selena Winn, Sep 21, 2020,06:32 NORA WEBER MED STUDENT Sep 20, 2020 12:38 SELENA WINN DO Sep 21, 2020 06:32
[2020-09-20] MEDS ORDERED: ALBU18HF2 INH (13:48)
[2020-09-20] MEDS ORDERED: CHOL200074 PO (13:48)
[2020-09-20] MEDS ORDERED: GABA300C PO (13:48)
[2020-09-20] MEDS ORDERED: AMLO-251 PO (13:48)
[2020-09-20] MEDS ORDERED: ROSU5TAB13 PO (13:48)
--- NOTE | 2020-09-20 13:50 | Cardiology Progress Note ---
Cardiology SOAP Progress Note Subjective: episode of atrial fibrillation this morning. Objective: I&O/Vital Signs 09/20/20 09/20/20 09/20/20 09/20/20 02:00 03:00 03:57 04:00 Temp 36.3 Pulse 75 74 75 Resp 15 29 27 B/P (MAP) 137/71 134/77 145/72 Pulse Ox 92 97 94 O2 Delivery Nasal Cannula Nasal Cannula Nasal Cannula O2 Flow Rate 2.00 2.00 2.00 09/20/20 09/20/20 09/20/20 09/20/20 05:00 06:00 07:00 07:00 Pulse 78 80 74 75 Resp 20 20 30 B/P (MAP) 137/58 149/71 Pulse Ox 93 94 93 O2 Delivery Nasal Cannula Nasal Cannula Nasal Cannula O2 Flow Rate 2.00 2.00 2.00 09/20/20 09/20/20 09/20/20 09/20/20 08:00 08:17 09:00 09:42 Temp 36.2 Pulse 84 79 Resp 27 30 B/P (MAP) 141/73 151/86 Pulse Ox 89 92 O2 Delivery Nasal Cannula Nasal Cannula Nasal Cannula O2 Flow Rate 2.00 5.00 5.00 09/20/20 09/20/20 09/20/20 09/20/20 10:00 11:00 11:10 11:28 Temp 36.4 Pulse 86 85 Resp 36 27 B/P (MAP) 164/86 164/74 Pulse Ox 92 92 92 O2 Delivery Nasal Cannula Nasal Cannula Nasal Cannula O2 Flow Rate 5.00 5.00 6.00 09/20/20 12:00 Pulse 79 Resp 30 B/P (MAP) 160/72 Pulse Ox 92 O2 Delivery Nasal Cannula O2 Flow Rate 5.00 09/20/20 00:00 Intake Total 1713 ml Balance 1713 ml Weight (Pounds): 150 Weight (Ounces): 0.0 Weight (Calculated Kilograms): 68.221648 Constitutional: appears stated age, AAO x 3; No apparent distress; well- developed, well-nourished Cardiovascular: regular rate-rhythm Gastrointestional: No spleenomegaly Extremities: normal range of motion, non-tender, normal inspection; No clubbing, No cyanosis; no lower extremity edema bilateral; No significant edema Neurologic/Psychiatric: no motor/sensory deficits, alert, normal mood/affect, oriented x 3 Skin: normal color; No rash, No ulcerations Results/Procedures: Labs Laboratory Tests 09/19/20 17:00: Sodium Level 121*L, Thyroid Stimulating Hormone (TSH) 0.72 09/19/20 23:54: Sodium Level 122*L 09/20/20 00:15: Blood Gas Puncture Site RIGHT RADIAL, Blood Gas Patient Temperature 36, Arterial Blood pH 7.54H, Arterial Blood Partial Pressure CO2 31L, Arterial Blood Partial Pressure O2 87, Arterial Blood HCO3 26, Arterial Blood Total CO2 27.4, Arterial Blood Oxygen Saturation 98, Arterial Blood Base Excess 3.5H, Darío Test POSITIVE, Blood Gas Ventilator Setting NO, Blood Gas Inspired Oxygen 2 09/20/20 05:30: Sodium Level 123*L, White Blood Count 6.9, Red Blood Count 4.74, Hemoglobin 13.2, Hematocrit 39, Mean Corpuscular Volume 81, Mean Corpuscular Hemoglobin 28, Mean Corpuscular Hemoglobin Concent 34, Red Cell Distribution Width 12.7, Platelet Count 301, Mean Platelet Volume 9.6, Immature Granulocyte % (Auto) 1, Neutrophils (%) (Auto) 85H, Lymphocytes (%) (Auto) 8L, Monocytes (%) (Auto) 6, Eosinophils (%) (Auto) 0, Basophils (%) (Auto) 0, Neutrophils # (Auto) 5.9, Lymphocytes # (Auto) 0.5L, Monocytes # (Auto) 0.4, Eosinophils # (Auto) 0.0, Basophils # (Auto) 0.0, Immature Granulocyte # (Auto) 0.1, Potassium Level 3.6, Chloride Level 89L, Carbon Dioxide Level 22, Anion Gap 12, Blood Urea Nitrogen 11, Creatinine 0.72, Estimat Glomerular Filtration Rate > 60, BUN/Creatinine Ratio 15, Glucose Level 164H, Calcium Level 7.9L, Phosphorus Level 3.0, Magnesium Level 2.1, Triglycerides Level 80, Cholesterol Level 127, LDL Cholesterol Direct 65, VLDL Cholesterol 16, HDL Cholesterol 44 09/20/20 07:50: Sodium Level 126L 09/20/20 12:20: Sodium Level 122*L Microbiology 09/19/20 Gram Stain, Resulted Pending 09/19/20 Sputum Culture - Preliminary, Resulted Usual upper respiratory lloyd 09/19/20 Urine Culture - Preliminary, Resulted Escherichia coli A/P: Assessment/Dx: COVID-19 positive, Atrial fibrillation with RVR Plan: COVID-19 positive, deferred to the primary team. Atrial fibrillation with RVR, converted to sinus rhythm yesterday. However patient had another episode of atrial fibrillation with RVR this morning. still on amiodarone infusion. Once amiodarone infusion is completed change to amiodarone 200 mg twice a day. Start Cardizem CD 120 mg daily. Oral anticoagulation is recommended. Thank you for your consultation. Please call me if you have any questions. Dhiraj Gamez MD, FACP, FACC, FSCAI, FHRS, CCDS Interventional Cardiology Cardiac Electrophysiology Vascular Medicine and Endovascular Interventions Focused Exam Lactate Level 09/19/20 11:15: Lactic Acid Level 1.00 Raj GAMEZ MD Sep 20, 2020 13:50
[2020-09-20] MEDS ORDERED: cefTRIAXone 1,000 MG/SWFI 10 ML IV PUSH IV SCH ×2 (14:00)
--- NOTE | 2020-09-20 14:47 | NUR ---
REPORT RECEIVED FROM KAREEM GOLF SALES MANAGER
[2020-09-20] MEDS ORDERED: NRT10C PO (15:51)
--- NOTE | 2020-09-20 15:51 | NUR ---
PT HAD A MED LIST WITH HER IN HER PURSE- THE NURSE SHOWED ME A COPY IN ICU. I USED THAT MED LIST, WENT THRU THE EXT MED HISTORY AND SPOKE WITH PTS DAUGHTER VANNESA TO COMPLETE THE MED REC THE PTS MED LIST SHOWS AMLODIPINE 5MG HOWEVER PT HAS NOT HAD THAT STRENGTH SINCE AND NOW TAKES THE 10MG. THE MED LIST ALSO SHOWS METOPROLOL TART 25MG BUT [facility] HAS ONLY EVER FILLED THE METOPROLOL SUCC. I ENTERED THE MEDICATION/DOSE THAT IS LISTED ON THE EXT MED HISTORY OTC MEDS: MTV VIT D3 FISH OIL ASPIRIN 81MG BISHOP LANDEROS
--- NOTE | 2020-09-20 16:43 | NUR ---
DR OLIVIER NOTIFIED FOR BP 177/79
--- NOTE | 2020-09-20 16:44 | NUR ---
MONITORS CALLED [facility] ACCURATE HR, PT CURRENTLY 95-105BPM.
--- NOTE | 2020-09-20 18:24 | NUR ---
DR WINN NOTIFIED OF CRITICAL LAB (SODIUM 122).
[2020-09-20] MEDS ORDERED: RT-ALBUTEROL SULF 2.5 MG/3 ML PRE-MIX VIAL INH PRN (18:45)
[2020-09-20] MEDS ORDERED: amLODIPine 5 MG (NORVASC) TAB PO NR (20:00)
[2020-09-20] MEDS: ROSUVASTATIN 5 MG (CRESTOR) TABLET PO SCH (20:34)
[2020-09-20] MEDS: ASPIRIN E.C. 81 MG (ECOTRIN) TAB PO SCH (20:34)
[2020-09-20] MEDS: NORTRIPTYLINE 10 MG (PAMELOR) CAP PO SCH (20:34)
[2020-09-20] MEDS: SINEMET 25/100 (CARBIDOPA/LEVODOPA) TAB PO SCH (21:57)
[2020-09-21] MEDS ORDERED: RT-ALBUTEROL/IPRATROPIUM 3 ML (DUONEB) VIAL INH PRN ×2 (04:15→19:45)
[2020-09-21] MEDS ORDERED: RT-ALBUTEROL INHALER HFA (VENTOLIN HFA) 18 GM IH ONE (04:18)
[2020-09-21 06:11] LABS: BASOPHILS % (AUTO) 0 % (0-10); EOSINOPHILS % (AUTO) 0 % (0-10); HEMATOCRIT 40 % (35-52); HEMOGLOBIN 11.5 g/dL (11.5-16.0); LYMPHOCYTES # (AUTO) 1.8 10^3/uL (1.0-4.0); LYMPHOCYTES % (AUTO) 20 % (12-44); MEAN CORPUSCULAR HEMOGLOBIN 27 pg (25-34); MEAN CORPUSCULAR HGB CONC 29 g/dL (32-36); MEAN CORPUSCULAR VOLUME 94 fL (80-99); MEAN PLATELET VOLUME 11.1 fL (9.0-12.2); MONOCYTES # (AUTO) 0.8 10^3/uL (0.0-1.0); MONOCYTES % (AUTO) 9 % (0-12); NEUTROPHILS # (AUTO) 6.2 10^3/uL (1.8-7.8); NEUTROPHILS % (AUTO) 70 % (42-75); PLATELET COUNT 273 10^3/uL (130-400); WHITE BLOOD COUNT 8.9 10^3/uL (4.3-11.0)
[2020-09-21 06:24] LABS: ALBUMIN 3.2 GM/DL (3.2-4.5); CHLORIDE 104 MMOL/L (98-107); SODIUM 138 MMOL/L (135-145)
[2020-09-21 06:25] LABS: CALCIUM 8.3 MG/DL (8.5-10.1)
[2020-09-21 06:26] LABS: GLUCOSE 148 MG/DL (70-105); TOTAL PROTEIN 6.5 GM/DL (6.4-8.2)
[2020-09-21 06:27] LABS: CARBON DIOXIDE 19 MMOL/L (21-32)
[2020-09-21 06:28] LABS: BILIRUBIN,TOTAL 0.5 MG/DL (0.1-1.0)
[2020-09-21 06:30] LABS: ALKALINE PHOSPHATASE 45 U/L (40-136); CREATININE SERUM 0.81 MG/DL (0.60-1.30); GFR ESTIMATED > 60
[2020-09-21 06:31] LABS: BUN/CREATININE RATIO 20
[2020-09-21 06:33] LABS: ALANINE AMINOTRANSFERASE 24 U/L (0-55)
--- NOTE | 2020-09-21 06:52 | Progress Note - Hospitalist ---
Subjective HPI/CC On Admission Date Seen by Provider: Sep 21, 2020 Time Seen by Provider: 11:00 CC: AMS with COVID-19 HPI: This is an 85yoWF clinic patient of Dr Carolina who presented to the ER with confusion. Hypoxia noted on admit and COVID-19 was +. AF w/RVR noted so Cardiology placed on Amio and Cardizem drip. Moving to 4th floor. Prognosis guarded. Patient converted to NSR. CC: Confusion, Generalized weakness. Neurologic: Confusion No pain reported No known neurological injury or deficit Cardiovascular: Patient comes in with suspected Afib. Cardizem bolus given Cardiology recommend Amiodarone bolus No other known CV problems at this time Currently on Amiodarone and Diltiazem Respiratory: O2 saturation 90s on 5L nasal cannula Not ventilated Xray shows consolidation in left mid and lower lobes. No identified pneumothorax Gastrointestinal: Hx of incontinence Patient self feeding no reported diarrhea or constipation no known GI bleed, no anemia to suspect GI bleed. Renal/Genitourinary: Patient has currently received 2100ml fluid Receiving normal saline at rate of 125/hr Alkalosis noted on ABG Hematologic: No abnormal coagulation studies No known active bleeds CBC normal No evidence of leukocytosis DVT prophylaxis Endocrine: Not a known diabetic No abormal sugars during hospital course so far. No evidence of hyper or hypothyroid Severe hyponatremia Infectious Disease: Covid + MSK: Generalized Weakness Uses Walker Has arthritis This patient was admitted yesterday on Sep 19 due to confusion and generalized weakness. She has a low O2 and required admission. Over the course of the last day she seems to be doing alright. Her vital signs have remained stable. There was severe hyponatremia that is improving. She is currently on Diltiazem and am iodarone for AFIB. She is continued to be monitored for any signs of worsening status. Subjective/Events-last exam Patient more lethargic O2 maintained Tachypnea noted Spoke with PATRICIA Samuels in-depth and she reviewed Living Will and noted she is DNR so that order was placed and RN was updated Cath was placed Poor reserve noted prior to profound illness ABG reviewed and noted CO2 retention but biPAP will not be tolerated Comfort care protocol will likely be needed MSO4 and Xanax was ordered for her Review of Systems Pulmonary: Dyspnea Neurological: Confusion Focused Exam Lactate Level 09/19/20 11:15: Lactic Acid Level 1.00 Objective Exam Vital Signs Vital Signs Date Time Temp Pulse Resp B/P (MAP) Pulse Ox O2 Delivery O2 Flow Rate FiO2 09/21/20 15:46 35.5 123 28 123/74 93 High Flow N/C 13.00 Capillary Refill : Less Than 3 SecondsLess Than 3 Seconds General Appearance: No Apparent Distress, WD/WN, Anxious, Chronically ill, Thin Respiratory: Lungs Clear, Accessory Muscle Use, Decreased Breath Sounds Cardiovascular: Irregularly Irregular, Tachycardia Results/Procedures Lab Laboratory Tests 09/21/20 05:28 Patient resulted labs reviewed. Assessment/Plan Assessment and Plan Assess & Plan/Chief Complaint Assessment: COVID-19 PNA AF w/RVR now NSR and sinus tachy CO2 retention DNR Advanced age Plan: DNR Poor prognosis O2 maintained Xanax and MSO4 Diagnosis/Problems Diagnosis/Problems (1) COVID-19 Status: Acute (2) Atrial fibrillation with RVR Status: Acute (3) Hyponatremia Status: Acute (4) Hypokalemia Status: Acute (5) Benign essential hypertension Status: Acute Clinical Quality Measures DVT/VTE Risk/Contraindication: Risk Factor Score Per Nursin RFS Level Per Nursing on Admit: 3=High KATH WINN DO Sep 21, 2020 06:52
[2020-09-21] MEDS: GABAPENTIN 300 MG (NEURONTIN) CAP PO SCH (08:56)
[2020-09-21] MEDS: amLODIPine 5 MG (NORVASC) TAB PO SCH (08:56)
[2020-09-21] MEDS: SINEMET 25/100 (CARBIDOPA/LEVODOPA) TAB PO SCH ×3 (08:57→21:53)
[2020-09-21] MEDS: APIXABAN 5 MG (ELIQUIS) TABLET PO SCH ×2 (08:57→21:52)
[2020-09-21] MEDS: dilTIAZem120 MG (CARDIZEM CD) CAP PO SCH ×3 (08:57→21:51)
[2020-09-21] MEDS: AMIODARONE 200 MG (CORDARONE) TAB PO SCH ×2 (08:57→21:51)
[2020-09-21] MEDS ORDERED: RT-ALBUTEROL INHALER HFA (VENTOLIN HFA) 18 GM IH PRN (09:30)
[2020-09-21 13:56] LABS: ABG BASE EXCESS 2.1 MMOL/L (-2.5-2.5); ABG OXYGEN SATURATION 72 % (94-100); ABG PCO2 50 MMHG (35-45); ABG PH 7.35 (7.37-7.43); ABG PO2 45 MMHG (79-93); ABG TCO2 29.2 MMOL/L (21.0-31.0)
[2020-09-21 13:57] LABS: ALLENS TEST YES-POS; INSPIRED O2 13 L HF; PATIENT TEMP 35.1; VENTILATOR NO
[2020-09-21] MEDS ORDERED: cefTRIAXone 1,000 MG/SWFI 10 ML IV PUSH IV SCH ×2 (14:00)
[2020-09-21] MEDS ORDERED: ALPRAZolam 0.25 MG (XANAX) TAB PO PRN (14:00)
--- NOTE | 2020-09-21 14:11 | NUR ---
AT APPROX 1315 RN WENT TO PTS ROOM TO DO MED PASS AND PT WAS DIFFICULT TO WAKE UP. RN CHECKED 02 AND SHE WAS SATTING AT 78% ON 6L NC. RT, ZORAIDA, DR WINN NOTIFIED. PT PUT ON HIGH FLOW 12 L NC IN ORDER TO SAT ABOVE 90%. DR WINN NOTIFIED DPOA, DAUGHTER, VANNESA. DR WINN CALLED THIS RN BACK AND INFORMED HER THAT PT IS NOW A DNR PER DAUGHTER AND LIVING WILL AND TO KEEP COMFORTABLE BUT SHE WILL STAY ON THIS FLOOR. PT VERY UNCOMFORTABLE, RR OVER 30 A MINUTE, PULSE MEAN IS 120, DR WINN ORDERED MORPHINE 2 MG Q2H PRN AND XANAX 0.25 MG Q2H PRN.
[2020-09-21] MEDS: morphine INJ 4 MG/ML 1 ML (VIAL/SYRINGE) IVP PRN ×4 (14:51→23:51)
--- NOTE | 2020-09-21 17:30 | NUR ---
DR WINN GAVE ORDER FOR GUY CATH FOR PT NOW THAT SHE IS A DNR AND FAMILY DOES NOT WISH TO BE AGGRESSIVE WITH CARE. RN EXPLAINED PROCEDURE TO HER AND SHE WAS AGREEABLE TO HAVING GUY PLACED. RN USED STERILE TECHNIQUE TO INSERT GUY, 16 FR WITH [address], JOSÉ ANTONIO COLORED URINE DRAINING TO BAG. GUY SECURED TO LEFT HIP.
--- NOTE | 2020-09-21 19:42 | NUR ---
FAMILY NOTIFIED OF PTS WORSENING CONDITION. AIRCRAFT QUALITY CONTROL INSPECTOR, ALISTAIR, GAVE INSTRUCTIONS THAT FAMILY CAN COME UP TO SEE PT IF THEY ARE AT THE END OF LIFE ON COMFORT CARE, ONE AT A TIME AND MUST BE IN CORRECT PPE. DR WINN SAID THAT IF FAMILY IS OK THEY WITH COMFORT CARE THEN SHE WOULD BE FINE WITH PUTTING PT ON IT. VANNESA, PATRICIA, NOTIFIED AND SHE IS AWARE OF MOTHERS CONDITION AND HER 02 SATURATION IS IN 80'S ON 15 L OF HIGH FLOW 02. THIS NURSE AUTOMAT CAR ATTENDANT EXPLAINED COMFORT CARE AND THE VISITING RULES FOR COVID END OF LIFE PTS. VANNESA GAVE OK FOR COMFORT CARE AND WAS INSTRUCTED BY THIS RN THAT ONLY ONE FAMILY MEMBER AT A TIME MAY GO INTO THE ROOM, THEY MUST DRESSING IN FULL PPE INCLUDING A N95 MASK, TO CHECK IN AT THE ED DOOR, AND FOR FAMILY MEMBERS NOT IN ROOM WITH PT, I SUGGESTED PER MARCUS ORTIZ TO USE 5TH FLOOR WAITING ROOM. VANNESA VERBALIZED UNDERSTANDING AND HAD ONE OTHER SISTER AND TWO BROTHERS IN AREA BUT UNSURE OF WHO WOULD BE VISITING. NIGHT NURSE, VANNESA, NOTIFIED, THIS RN PUT IN COMFORT CARE ORDERS PER DR WINN WHO WAS ALSO NOTIFIED ALONG WITH MARCUS ORTIZ AND MATERIALS PLANNER ROSS Valdes
[2020-09-21] MEDS ORDERED: ARTIFICAL TEARS 0.4 ML UNIT DOSE (REFRESH PLUS) OU PRN (19:45)
[2020-09-21] MEDS ORDERED: ATROPINE 1% OPHTHALMIC SOLN 2 ML SL PRN (19:45)
[2020-09-21] MEDS ORDERED: SALIVA STIMULANT MOUTH SPRAY (BIOTENE) 1.5 OZ MM PRN (19:45)
[2020-09-21] MEDS ORDERED: PROMETHAZINE INJ 25 MG/ML (PHENERGAN) AMP IVP PRN (19:45)
[2020-09-21] MEDS ORDERED: SCOPOLAMINE 1.5 MG (TRANSDERM-SCOP) PATCH TOP SCH (19:45)
[2020-09-21] MEDS ORDERED: ONDANSETRON 4 MG/2 ML (SDV) Z0FRAN IVP PRN (19:45)
[2020-09-21] MEDS ORDERED: GLYCOPYRROLATE 0.2 MG/ML (ROBINUL) 2 ML VIAL IV PRN (19:45)
[2020-09-21] MEDS ORDERED: BISACODYL 10 MG SUPP (DULCOLAX) PR PRN (19:45)
[2020-09-21] MEDS ORDERED: ACETAMINOPHEN 650 MG SUPP (TYLENOL) PR PRN (19:45)
[2020-09-21] MEDS ORDERED: LORazepam INJ 2 MG/ML (ATIVAN) VIAL ONE (19:54)
[2020-09-21] MEDS: LORazepam INJ 2 MG/ML (ATIVAN) VIAL IVP PRN (20:03)
[2020-09-21] MEDS ORDERED: SCOPOLAMINE 1.5 MG (TRANSDERM-SCOP) PATCH ONE (20:03)
[2020-09-21] MEDS: ROSUVASTATIN 5 MG (CRESTOR) TABLET PO SCH (21:51)
[2020-09-21] MEDS: ASPIRIN E.C. 81 MG (ECOTRIN) TAB PO SCH (21:52)
[2020-09-21] MEDS: NORTRIPTYLINE 10 MG (PAMELOR) CAP PO SCH (21:52)
[2020-09-22] MEDS: LORazepam INJ 2 MG/ML (ATIVAN) VIAL IVP PRN ×2 (00:03→02:58)
[2020-09-22] MEDS: morphine INJ 4 MG/ML 1 ML (VIAL/SYRINGE) IVP PRN ×5 (02:59→17:13)
[2020-09-22] MEDS: GABAPENTIN 300 MG (NEURONTIN) CAP PO SCH (08:30)
[2020-09-22] MEDS: amLODIPine 5 MG (NORVASC) TAB PO SCH (08:30)
[2020-09-22] MEDS: dilTIAZem120 MG (CARDIZEM CD) CAP PO SCH ×2 (08:30→23:45)
[2020-09-22] MEDS: APIXABAN 5 MG (ELIQUIS) TABLET PO SCH ×2 (08:30→23:46)
[2020-09-22] MEDS: AMIODARONE 200 MG (CORDARONE) TAB PO SCH ×2 (08:30→21:00)
[2020-09-22] MEDS: SINEMET 25/100 (CARBIDOPA/LEVODOPA) TAB PO SCH ×3 (08:30→23:46)
--- NOTE | 2020-09-22 08:57 | NUR ---
MICHAEL GOMEZIN, DAUGHTER OF PT, OFFERED PASTORAL SERVICES BY THIS NURSE SENSITOMETRIST AND VANNESA DID DECLINE PTS PREACHER CAME IN LAST NIGHT WITH FAMILY TO VISIT PT. MANIFOLD BUILDER, REYMUNDO, NOTIFIED OF THIS.
--- NOTE | 2020-09-22 11:20 | Progress Note - Hospitalist ---
Subjective HPI/CC On Admission Date Seen by Provider: Sep 22, 2020 Time Seen by Provider: 11:30 CC: AMS with COVID-19 HPI: This is an 85yoWF clinic patient of Dr Carolina who presented to the ER with confusion. Hypoxia noted on admit and COVID-19 was +. AF w/RVR noted so Cardiology placed on Amio and Cardizem drip. Moving to 4th floor. Prognosis guarded. Patient converted to NSR. CC: Confusion, Generalized weakness. Neurologic: Confusion No pain reported No known neurological injury or deficit Cardiovascular: Patient comes in with suspected Afib. Cardizem bolus given Cardiology recommend Amiodarone bolus No other known CV problems at this time Currently on Amiodarone and Diltiazem Respiratory: O2 saturation 90s on 5L nasal cannula Not ventilated Xray shows consolidation in left mid and lower lobes. No identified pneumothorax Gastrointestinal: Hx of incontinence Patient self feeding no reported diarrhea or constipation no known GI bleed, no anemia to suspect GI bleed. Renal/Genitourinary: Patient has currently received 2100ml fluid Receiving normal saline at rate of 125/hr Alkalosis noted on ABG Hematologic: No abnormal coagulation studies No known active bleeds CBC normal No evidence of leukocytosis DVT prophylaxis Endocrine: Not a known diabetic No abormal sugars during hospital course so far. No evidence of hyper or hypothyroid Severe hyponatremia Infectious Disease: Covid + MSK: Generalized Weakness Uses Walker Has arthritis This patient was admitted yesterday on Sep 19 due to confusion and generalized w eakness. She has a low O2 and required admission. Over the course of the last day she seems to be doing alright. Her vital signs have remained stable. There was severe hyponatremia that is improving. She is currently on Diltiazem and amiodarone for AFIB. She is continued to be monitored for any signs of worsening status. Subjective/Events-last exam Patient weak Mostly unresponsive MSO4 maintained for comfort DNR Family came to visit. Objective Exam Vital Signs Vital Signs Date Time Temp Pulse Resp B/P (MAP) Pulse Ox O2 Delivery O2 Flow Rate FiO2 09/22/20 09:00 High Flow N/C 15.00 09/21/20 19:13 36.3 112 28 147/74 86 Capillary Refill : Less Than 3 SecondsLess Than 3 Seconds General Appearance: No Apparent Distress, WD/WN, Chronically ill Respiratory: Accessory Muscle Use Results/Procedures Lab Patient resulted labs reviewed. Assessment/Plan Assessment and Plan Assess & Plan/Chief Complaint Assessment: COVID-19 PNA AF w/RVR now NSR and sinus tachy CO2 retention DNR Advanced age Plan: DNR Poor prognosis O2 maintained Xanax and MSO4 09/22/20: DNR COmfort care Diagnosis/Problems Diagnosis/Problems (1) COVID-19 Status: Acute (2) Atrial fibrillation with RVR Status: Acute (3) Hyponatremia Status: Acute (4) Hypokalemia Status: Acute (5) Benign essential hypertension Status: Acute Clinical Quality Measures DVT/VTE Risk/Contraindication: Risk Factor Score Per Nursin RFS Level Per Nursing on Admit: 3=High KATH WINN DO Sep 22, 2020 11:20
--- NOTE | 2020-09-22 19:00 | NUR ---
PT WILL BE USING [facility] IN [place] PER DAUGHTER PATRICIA GRANADO.
--- NOTE | 2020-09-22 19:39 | NUR ---
VANNESA, PTS DAUGHTER, REPORTED SHE WILL COME TO [facility] TO GET PTS BELONGINGS. THEY ARE IN A CLEAR BAG WITH PAJAMAS (TEAL WITH PETIT), A PAIR OF SLIPPERS, TEAL WALLET WITH CHECKBOOK, CREDIT CARDS, HE AND IT LOOKS LIKE A SS CARD. ROSS Romero RN NIGHT NURSE IS AWARE.
--- NOTE | 2020-09-22 21:35 | NUR ---
Pts daughter Arvind here to take patients belongings home (diomedess - TEAL WITH PETIT, pair of SLIPPERS, TEAL WALLET WITH CHECKBOOK, CREDIT CARDS, HE AND IT LOOKS LIKE A SS CARD, glasses, flip cell phone, bottom dentures (top dentures remain in patients mouth).
[2020-09-22] MEDS: ROSUVASTATIN 5 MG (CRESTOR) TABLET PO SCH (23:45)
[2020-09-22] MEDS: ASPIRIN E.C. 81 MG (ECOTRIN) TAB PO SCH (23:46)
[2020-09-22] MEDS: NORTRIPTYLINE 10 MG (PAMELOR) CAP PO SCH (23:46)
[2020-09-23] MEDS: LORazepam INJ 2 MG/ML (ATIVAN) VIAL IVP PRN (06:05)
--- NOTE | 2020-09-23 08:45 | NUR ---
PATIENT BEFORE NURSE ADMINISTERED MORPHINE AND ATIVAN - MEDICATION RETURNED TO PHARMACY
--- NOTE | 2020-09-23 10:17 | NUR ---
PATIENT AT 08 ORGAN DONOR NOTIFIED PATIENT DID NOT QUALIFY FOR ORGAN DONATION , FAMILY DPOA NOTIFIED OF THE PATIENT AT 0830 STATED BROTHER WAS COMING FOR VISIT , 2 FAMILY MEMBER CAME VISIT(SON) - DPTAMMY OK TO RELEASE BODY TO [facility] AFTER VISIT , HOME NOTIFIED ON THEIR WAY
--- NOTE | 2020-09-23 10:27 | Physician Query Clarification ---
PQ-Conflicting Diagnosis Admission/Discharge Admission Date: Sep 19, 2020 at 14:01 Discharge Date: Dr. Winn The medical record reflects the following clinical scenario: History/Risk Factors: Positive COVID [address] Solis on 09/19 Clinical Findings:Urine Culture 09/19 showing >100,000 Escherichia Coli. Treatment: IV Rocephin on 09/19 Question: Do you agree with the impression of the UTI per Dr. Solis,ED physician? If so, please document specific organism. Please document a response in Progress Note or Discharge Summary. 1. Yes 2. No 3. Other, with explanation of clinical findings 4. Clinically undetermined, no explanation for clinical findings. PHYSICIAN RESPONSE Do you agree w/Consulting Dx?: Yes (e coli) Please remember a lack of response to the above will prompt a phone page by CDI/Coding staff. In responding to this query, please exercise your independent professional judgment. The purpose of this communication is to more accurately reflect the complexity of your patients condition. The fact that a question is asked does not imply that any particular answer is desired or expected. Thank you for your timely response to this clarification. Requestors name: Sarah Nelson [facility] THIS PHYSICIAN QUERY FORM IS A PERMANENT PART OF THE MEDICAL RECORD SARAH NELSON Sep 23, 2020 10:27 KATH WINN DO Sep 23, 2020 11:11
--- NOTE | 2020-09-23 10:34 | Physician Query Clarification ---
PQ-CHF Specificity Admission Date: Sep 19, 2020 at 14:01 Discharge Date: The medical record reflects the following clinical scenario: Dr. Farmer, History/Risk Factors: COVID 19 positive/Pneumonia Atrial fibrillation with rapid ventricular response CHF Clinical Findings: Hypoxia.CHF documented in Admission Diagnosis on H&P. Treatment: Amiodarone HCI 450mg, Cardizem IVP 5mg infusion. Question: Can you further specify the acuity &/or type of CHF per the clinical indicators above? Please document a response in the Progress Notes or Discharge Summary. 1. Acuity: Acute, Chronic or Acute on Chronic 2. Type: Systolic, Diastolic or Systolic & Diastolic 3. Unspecified: CHF cannot be further specified regarding type or acuity 4. Other, with explanation of clinical findings 5. Clinically undetermined, no explanation for clinical findings PHYSICIAN RESPONSE Acuity: Other (list below) (inquire with cardiology consultation) Type: Other (explain below) Please remember a lack of response to the above will prompt a phone page by CDI/Coding staff. In responding to this query, please exercise your independent professional judgment. The purpose of this communication is to more accurately reflect the complexity of your patients condition. The fact that a question is asked does not imply that any particular answer is desired or expected. Thank you for your timely response to this clarification. Requestors name: Sarah Nelson [facility] THIS PHYSICIAN QUERY FORM IS A PERMANENT PART OF THE MEDICAL RECORD SARAH NELSON Sep 23, 2020 10:34 KATH FARMER DO Sep 23, 2020 11:12
--- NOTE | 2020-09-23 10:47 | Physician Query Clarification ---
PQ-Intro New Diagnosis Admission/Discharge Admission Date: Sep 19, 2020 at 14:01 Discharge Date: The medical record reflects the following clinical scenario: Dr. Farmer, History/Risk Factors: Positive COVID/Pneumonia Hypoxia Clinical Findings: Alkalosis on blood gases documented in your progress note 09/21, Tachypnea, C02 retention,accessory muscle use. Blood gases 09/21: pH 7.35, pC02 50, p02 45,HC03 28, 02 sats 72%. Respirations 28. Treatment: 13L High Flow N/C. Question: What condition best reflects the above clinical scenario? Please document a response in the Progress Noter or Discharge Summary. 1. Acute respiratory failure 2. Alkalosis with C02 retention without diagnosis of respiratory failure. 3. Other, with explanation of the clinical findings. 4. Clinically undetermined, no explanation for the clinical findings. PHYSICIAN RESPONSE What condition reflects above: 1 Please remember a lack of response to the above will prompt a phone page by CDI/Coding staff. In responding to this query, please exercise your independent professional judgment. The purpose of this communication is to more accurately reflect the complexity of your patients condition. The fact that a question is asked does not imply that any particular answer is desired or expected. Thank you for your timely response to this clarification. Requestors name: [ ] Phone # [ ] THIS PHYSICIAN QUERY FORM IS A PERMANENT PART OF THE MEDICAL RECORD ERIC NELSON Sep 23, 2020 10:47 KATH FARMER DO Sep 23, 2020 11:13
--- NOTE | 2020-09-23 10:53 | Discharge Summary ---
Discharge Summary Hospital Course Was the Problem List Reviewed?: Yes Problems/Dx: (1) COVID-19 Status: Acute (2) Atrial fibrillation with RVR Status: Acute (3) Hyponatremia Status: Acute (4) Hypokalemia Status: Acute (5) Benign essential hypertension Status: Acute Hospital Course Date of Admission: Sep 19, 2020 at 14:01 Admission Diagnosis : Family Physician/Provider: Salima Carolina MD Date of Discharge: 09/23/20 Discharge Diagnosis: COVID-19, AF w/RVR Hospital Course: Hospital course: Pt had an uneventful but complicated hospital course until she , she admitted for AFIB with RVR and hypoxia with Covid. Pt ultimately became more and more complex, heart failure ensued along with altered mental status and ultimately she was showing signs of a terminal illness so she was made a DNR and comfort care ultimately and she peacefully with family at the bedside. Labs and Pending Lab Test: Microbiology 09/19/20 Gram Stain - Final, Complete 09/19/20 Sputum Culture - Final, Complete Usual upper respiratory lloyd 09/19/20 Urine Culture - Final, Complete Escherichia coli 09/19/20 Blood Culture - Preliminary, Resulted No growth Home Meds Active Reported Nortriptyline HCl 10 Mg Capsule 10-20 Mg PO HS LAST FILLED 05-28-2020 #60 Rosuvastatin Calcium 5 Mg Tablet 5 Mg PO HS Neurontin (Gabapentin) 300 Mg Capsule 300 Mg PO DAILY Ventolin Hfa (Albuterol Sulfate) 18 Gm Hfa.aer.ad 2 Puff INH Q6H PRN Amlodipine Besylate 10 Mg Tablet 10 Mg PO DAILY Vitamin D3 (Cholecalciferol (Vitamin D3)) 50 Mcg Capsule 50 Mcg PO DAILY Carbidopa-Levodopa 25-100 Tab (Carbidopa/Levodopa) 1 Each Tablet 1 Each PO TID Multiple Vitamins (Multivitamin) 1 Each Tablet 1 Each PO BID Metoprolol Succinate 25 Mg Tab.er.24h 25 Mg PO HS [[place]] 1 Cap PO BID WITH MEALS Fish Oil 1,000 mg Capsule ([place] 3 Polyunsat Fatty Acids) 1,000 Mg Cap 1,000 Mg PO TID Aspirin EC (Aspirin) 81 Mg Tablet.dr 81 Mg PO HS Hydrochlorothiazide 25 Mg Tablet 25 Mg PO HS Assessment/Pt Instructions Discharge Planning: <30 minutes discharge planning Discharge Physical Examination Vital Signs Vital Signs Date Time Temp Pulse Resp B/P (MAP) Pulse Ox O2 Delivery O2 Flow Rate FiO2 09/23/20 07:10 Nasal Cannula 2.00 09/21/20 19:13 36.3 112 28 147/74 86 General Appearance: Chronically ill Allergies: Coded Allergies: No Known Drug Allergies (Unverified , 01/02/19) Discharge Summary Date of Admission Sep 19, 2020 at 14:01 Date of Discharge Sep 23, 2020 at 10:20 Admission Diagnosis Assessment: COVID-19 PNA Hypoxia CHF AF w/RVR Advanced age Plan: [facility] Evaluate code status O2 Cardiology appreciated Comfort Measures/ End of Life Care: Comfort Measures Discharge Diagnosis Assessment: COVID-19 PNA AF w/RVR now NSR and sinus tachy CO2 retention DNR Advanced age Plan: DNR Poor prognosis O2 maintained Xanax and MSO4 09/22/20: DNR COmfort care (1) COVID-19 Status: Acute (2) Atrial fibrillation with RVR Status: Acute (3) Hyponatremia Status: Acute (4) Hypokalemia Status: Acute (5) Benign essential hypertension Status: Acute Clinical Quality Measures DVT/VTE Risk/Contraindication: Risk Factor Score Per Nursin RFS Level Per Nursing on Admit: 3=High KATH WINN DO Sep 23, 2020 10:53
[2020-09-24] MEDS ORDERED: REMOVAL TP SCH (19:44)
== END 2020-09-23 10:20 | disposition expired | DRG 177 ==
LOC: EDUNIT# 10:50 → ER 10:51 → ICU 14:01 → 4TH 09-20 14:40
PROVIDERS: ADMIT Family Medicine; ATTEND Family Medicine
DX: U07.1 COVID-19 (principal); J12.89 Other viral pneumonia; J96.01 Acute respiratory failure with hypoxia; E87.1 Hypo-osmolality and hyponatremia; E87.3 Alkalosis; E87.2 Acidosis; I38 Endocarditis, valve unspecified; I48.91 Unspecified atrial fibrillation; Z66 Do not resuscitate; Z51.5 Encounter for palliative care; I11.0 Hypertensive heart disease with heart failure; I50.9 Heart failure, unspecified; R54 Age-related physical debility; J30.2 Other seasonal allergic rhinitis; E78.00 Pure hypercholesterolemia, unspecified; G43.909 Migraine, unspecified, not intractable, without status migrainosus; G20 Parkinson's disease; K59.09 Other constipation; M19.91 Primary osteoarthritis, unspecified site; H35.30 Unspecified macular degeneration; Z86.73 Personal history of transient ischemic attack (TIA), and cerebral infarction without residual deficits; Z87.891 Personal history of nicotine dependence
CPT/HCPCS: 36415; 36600; 71045; 80048; 80053; 80061; 81000; 82805; 82962; 83605; 83735; 83874; 83930; 83935; 84100; 84295; 84300; 84443; 84484; 85025; 85610; 85730; 87040; 87070; 87077; 87088; 87186; 87205; 93005; 93041; 94640; 94664; 94760; 96361; 96372; 96374; 96375